=== PATIENT | female | born 1975 | race Caucasian/White ===

== ENCOUNTER 2017-12-04 15:21 | Emergency (ER) | payer MEDICAID, SELFPAY ==
[2017-12-04 15:22] VITALS: BP 98/75; PULSE 137; RESP 18; TEMP 36.6; O2SAT 96; BMI 51.3
--- NOTE | 2017-12-04 15:56 | EKG12_ITS ---
Test Reason : Blood Pressure : / mmHG Vent. Rate : 116 BPM Atrial Rate : 116 BPM P-R Int : 146 ms QRS Dur : 092 ms QT Int : 330 ms P-R-T Axes : 033 015 -04 degrees QTc Int : 458 ms Sinus tachycardia Borderline Low voltage QRS Confirmed by OSITO PRESSLEY, RETA ([id number]), video effects editor DANILO NORMAN ([id number]) on 12/08/2017 3:17:09 PM Referred By: EVGENY Confirmed By:RETA MCNEILL MD
[2017-12-04 15:57] VITALS: BP 100/73; PULSE 129; RESP 17; O2SAT 95
[2017-12-04] MEDS: 0.9% Normal Saline 1,000 ML 1000 ML IV (16:51)
[2017-12-04] MEDS: proMETHazine 25 MG/ML Syringe 12.5 MG IV (16:51)
[2017-12-04] MEDS: Ketorolac 15 MG/ML Vial IV (16:51)
--- NOTE | 2017-12-04 17:12 | ED.RN ---
PT REQUESTING MORE PAIN MEDICATION AND ATIVAN FOR ANXIETY.DR. LE INFORMED OF PT REQUEST. LAB CALLED FOR PT BLOOD DRAW. NO NEW ORDERS AT THIS TIME, WILL CONTINUE TO MONITOR.
--- NOTE | 2017-12-04 17:15 | ED.VISSUMM ---
- ER Visit Summary Date of Service: 12/04/17 Chief Complaint: Pain History of Present Illness: The patient is a 42 F who is postoperative day 3 from dental extraction. She states that despite her morphine Ativan and Percocet 10 mg medications the pain in her mouth is horrible. She states that before her surgery she talked to her pain management doctor who okayed her to come to the emergency room for pain medication if need be. She is in pain management because of fibromyalgia. Also the patient states that last night she laid on her left leg and now she feels tingling from her buttock down to her foot. She states because of this tingling is caused her to swell in various places on her body. The patient states that there is one pain medication that will help her and it begins with D but she cannot quite think of what is called. Physical Examination: 100/73 temperature 97.8 heart rate 129 respirations are 16 pulse ox is 96% on room air Gen: Well-nourished well-developed BMI 51.3 Head: Normocephalic atraumatic Eyes: Perrl EOMI ENT: TMs clear no rhinorrhea moist mucous membranes the recent dental extractions appear to be healing appropriately. There is a bone spur in the lower midline. There is no obvious dry socket. She is swallowing normal. No trismus. Neck: Supple no lymphadenopathy no JVD nontender CVS: Regular rate rhythm no murmurs normal S1-S2 Respiratory: No distress clear to auscultation bilaterally chest nontender Abdomen: Soft nontender nondistended normal bowel sounds no masses Back: Nontender Extremity: Nontender trace edema bilaterally Skin: Normal color no rash Neuro: alert orientated ?3 CN II-XII intact normal strength reflexes reported decreased sensation in the left leg Psych: Anxious Test Results: White count 14.1. BUN 21 creatinine 1.47. This is off her baseline though the last creatinine was over 2 years ago that we have access to. Lactic acid 1.9. Troponin negative. EKG sinus tachycardia at a rate of 160 with no ectopy. Emergency Department Course and Treatment: Patient received IV fluids. Patient became quite anxious because she was a difficult blood draw and required numerous times and she requested Ativan she was given it. Also gave her Toradol. She states that Toradol does not help but now she remembers the name of the pain medication and is requesting Dilaudid. I am very hesitant to give her Dilaudid. When I went back into the room to discuss this I asked her if she had been eating and drinking okay. She states that she had been doing it fine. She states that in fact since being here in the department she has had one and a half bottles of water. When the patient specifically requested me for Dilaudid I informed her I do not feel that Dilaudid is needed in her case. She then states that she has had significant problems eating or drinking because the pain. I point out that this is in direct contrast to what she just stated when I entered the room. She then informs me that she has to let her water warmup before she is able to drink it. I informed her that is pretty common thing after dental extraction. She informs me that she is most likely the sick is patient here in the emergency department. The patient states that the reason her heart rate is fast is because she is in severe pain. As she is telling me this her heart rate is 107. When she becomes upset and starts to whimper her heart rate does not change. The patient requests numerous times for Dilaudid and have explained to her that as she is able to sit in the room with her left leg crossed working on a work book she does not appear to be in significant agony. The fact that prior to her dental extraction she talked with her pain management doctor about if it would be okay to come to the emergency room and get Dilaudid after her extraction tells me that she was already planning on coming here. All these things contribute to my medical opinion that Dilaudid is not in the best interest of the patient and not indicated in this situation. The patient is not pleased with this and is requesting to speak with the charge nurse of the ER. Patient was informed she should follow-up with her doctors. Impression: 1. Dental pain status post extraction 2. Left leg paresthesia This note was generated with [employer] dictation software. It may contain incorrect words, spelling, and punctuation that were not noted in review of the chart prior to signing ED Disposition - Plan for ED Patient: Disposition: Home or Assisted Living Chief Complaint: Dental Instructions: ED Post Op Pain, ED Sciatica Referrals: Devonte Stevenson Jr., MD [Primary Care Provider] - As soon as possible
[2017-12-04] MEDS: LORazepam 1 MG Tablet PO (17:19)
[2017-12-04 17:28] VITALS: PULSE 116; RESP 12; O2SAT 95
[2017-12-04 17:59] LABS: ALB/GLOB Ratio 0.6 RATIO (0.9-2.4); AST(SGOT) 51 U/L (15-37); Absolute Lymphocyte Count 4.31 X10^3/ul (0.83-4.51); Absolute Neutrophil Count 9.1 X10^3/uL (2.0-7.7); Alanine Aminotransfer ALT/SGPT 33 U/L (13-56); Albumin, Serum 2.9 g/dL (3.2-5.0); Alkaline Phosphatase 55 U/L (45-117); Anion Gap 8 (5-15); BUN 21 mg/dL (7-18); BUN/Creat Ratio 14.3 RATIO (10-20); Basophil# 0.03 X10^3/uL; Basophil% 0.2 % (0-1); Calcium,Total 8.8 mg/dL (8.5-10.1); Chloride 103 mmol/L (98-107); Creatinine, Serum 1.47 mg/dL (0.55-1.02); EST Glomerular Filtration Rate 41 mL/min (>60); Eosinophil# 0.13 X10^3/uL; Eosinophils% 0.9 % (0-5); Est Glom Filt Rate - Afr Amer 50 mL/min (>60); Estimated Creatinine Clearance 52.81 ml/min; Globulin 4.8 g/dL (2.2-4.2); Glucose 249 mg/dL (74-106); Hematocrit 42.6 % (37-47); Hemoglobin 14.6 g/dl (12.0-15.0); Lymphocyte # 4.31 X10^3/ul (4.0); Lymphocyte % 30.5 % (19-41); Mean Corp Hgb Conc 34.3 g/gl (32-36); Mean Corpuscular Volume 96.2 fL (81-99); Monocyte# 0.56 X10^3/uL; Neutrophil # 9.08 X10^3/uL (2.7-7.7); Neutrophil % 64.2 % (47-70); Platelet Count 371 K/mm3 (150-450); Potassium 4.9 mmol/L (3.5-5.1); Protein, Total 7.7 g/dL (6.4-8.2); RBC Distribution Width CV 12.2 % (11.6-14.6); RBC Distribution Width SD 41.6 fl (35.1-43.9); Red Blood Count 4.43 M/mm3 (4.2-5.4); Sodium Level 129 mmol/L (136-145); White Blood Count 14.1 K/mm3 (4.4-11.0)
[2017-12-04 18:01] VITALS: BP 105/69; PULSE 117; RESP 17; O2SAT 97
[2017-12-04 18:01] LABS: POSITIVE COUNT NO; POSITIVE DIFFERENTIAL NO; POSITIVE MORPHOLOGY NO
--- NOTE | 2017-12-04 18:01 | ED.RN ---
pt requests more pain and nausea medication. dr. soriano informed. no new medications ordered at this time. will continue to monitor.
[2017-12-04] MEDS: 0.9% Normal Saline 1,000 ML 150 ML IV (18:14)
--- NOTE | 2017-12-04 18:17 | ED.RN ---
PT RELAXING IN ROOM WATCHING TV, NO APPARENT DISTRESS NOTED. PT CONTINUES TO COMPLAIN OF PAIN. DR. LE INFORMED. NO NEW ORDERS WILL CONTINUE TO MONITOR.
[2017-12-04 19:07] VITALS: BP 101/79; PULSE 113; RESP 18; O2SAT 96
[2017-12-04 19:25] LABS: Lactic Acid 1.9 mmol/L (0.4-2.0)
--- NOTE | 2017-12-04 19:42 | ED.RN ---
PT CALLS THIS RN TO ROOM, STATES I NEED AT LEAST 2MG DILAUDID FOR MY BREAKTHROUGH PAIN, PT STATES SHE IS STILL HAVING DISCOMFORT FROM HAVING TEETH REMOVED FRIDAY. PT BARELY ABLE TO KEEP EYES OPEN DURING CONVERSATION, RESTING IN BED, NO SIGNS OF DISTRESS. ATTEMPTED TO REASSURE PT THAT MD AWARE OF REQUEST, PT STATES I JUST HAVE TO HAVE SOME DILAUDID, I AM ONE OF YOUR MOST CRITICAL PATIENTS, HE SHOULD BE BACK HERE TAKING CARE OF ME. APOLOGIZED FOR WAIT, ATTEMPTED TO EXPLAIN MD WAS WITH ANOTHER CRITICAL PT, PT STATES I DON'T CARE WHO ELSE IS IN HERE, I'M THE MOST CRITICAL ONE. PT DENIES ANY OTHER NEEDS, WILL CONTINUE TO MONITOR.
[2017-12-04 20:20] VITALS: BP 101/79; PULSE 103; RESP 17; O2SAT 97
== END 2017-12-04 20:21 | disposition home or self-care (01) ==
PROVIDERS: Emergency Provider Emergency Medicine; Family Provider Internal Medicine; PCP Internal Medicine
DX: K08.89 Other specified disorders of teeth and supporting structures (principal); Z98.818 Other dental procedure status; R20.2 Paresthesia of skin; R11.0 Nausea; M79.7 Fibromyalgia; E11.9 Type 2 diabetes mellitus without complications; I10 Essential (primary) hypertension; F32.9 Major depressive disorder, single episode, unspecified; Z90.89 Acquired absence of other organs; Z90.49 Acquired absence of other specified parts of digestive tract; Z90.710 Acquired absence of both cervix and uterus; Z87.891 Personal history of nicotine dependence; Z79.84 Long term (current) use of oral hypoglycemic drugs; Z79.899 Other long term (current) drug therapy
CPT/HCPCS: 36415; 80053; 83605; 84484; 85025; 93005; 96361; 96374; 96375; 99285; J7030

== ENCOUNTER 2018-01-16 20:54 | Inpatient (IN) | payer MEDICAID, SELFPAY ==
[2018-01-16] VITALS (11 sets, daily range): BP systolic 99–132; BP diastolic 64–104; PULSE 100–108; RESP 16–19; TEMP 36.6–37.7; O2SAT 78–100; BMI 56.0; BMI 56.1
--- NOTE | 2018-01-16 20:54 | DT_ITS ---
This patient was seen during an EMR downtime January 19, 2018 - January 26, 2018. This patient may have a combination of paper and electronic documentation or all paper documentation. All documentation is viewable within the e-chart portion of [facility] for each patient visit.
[2018-01-16] MEDS: Propofol 10MG/Ml 1,000 MG/100 ML Bottle 5.019 MG CONT INF (21:20)
--- NOTE | 2018-01-16 22:06 | PCM.HP.STD ---
Problem List (1) Acute respiratory failure Status: Acute (2) ARF (acute renal failure) Status: Acute (3) Hyperosmolarity due to secondary diabetes Status: Acute (4) Depression Status: Acute Comment: Reports she does not like medications for depression. Reports it has been prescribed at various times by her care providers. No interest in counseling. No suicide thoughts or thoughts of hurting others. (5) Diabetes mellitus Status: Acute Qualifiers: Comment: Discussed with patient need to check BG consistently and routinely. Showed her how to check correctly along side of finger and how to improve chances of getting blood sample on low dial. She may be a candidate for leslie system,depending on insurance. We discussed importance of routine care and following medication plan. Her level of anxiety significantly reduce by end of appointment. Instructed to check BG in pairs over the next several days . Will obtain medical records History of Present Illness Date of Admission: 01/16/18 Chief Complaint: Acute respiratory failure The patient is a 42 year old female w/ h/o chronic pain syndrome, HTN and DMII transferred from [facility] for acute respiratory failure. She was sedated and intubated. History is taken from staff and family members. Pt has been noncompliant w/ her insulin and when daughter found her, she was lying on the ground. She was mumbling. Family left her on the floor night and decided to call paramedics on Friday morning. She was brought to the ED for further workup. At [facility] ED, she was intubated and hydrated. She was also started on antibiotics. Past Medical History Medical History: Medical History (Last Updated 10/15/17 @ 13:10 by Michelle Flores) Anxiety and depression F41.8 Back problem M53.9 Carpal tunnel syndrome G56.00 Diabetes type 2, uncontrolled E11.65 Dx : 1995 Last exacerbation : DKA : never Hypoglycemic episode : never ER visit : never Fatty liver K76.0 Fibromyalgia M79.7 Frequent headaches R51 GERD (gastroesophageal reflux disease) K21.9 Seasonal allergies J30.2 Thyroid disease E07.9 HTN (hypertension) I10 Allergies hydroxyzine [From Atarax] Allergy (Verified 12/04/17 15:22) Hives Sulfa (Sulfonamide Antibiotics) Allergy (Verified 12/04/17 15:22) Hives Home Medications: Ambulatory Orders Medication Instructions Recorded Levothyroxine Sodium [Synthroid] 300 mcg PO DAILY 10/16/15 Omeprazole [Prilosec] 20 mg PO DAILY 10/16/15 Topiramate [Topamax] 100 mg PO BID 10/16/15 Venlafaxine XR [Effexor Xr] 150 mg PO BID 10/16/15 Zolpidem Tartrate [Ambien] 10 mg PO QHS 10/16/15 Morphine Sulfate [Morphine Sulfate 30 mg PO TID 11/07/15 ER] Oxycodone HCl/Acetaminophen 2 tab PO Q6H PRN PRN 11/07/15 [Percocet 10-325 mg Tablet] amitriptyline 100 mg tablet 100 mg PO QHS 10/15/17 blood sugar diagnostic strips See Dose Instructions .ROUTE 10/15/17 .MEDSUPPLY #100 ea blood-glucose meter kit See Dose Instructions .ROUTE 10/15/17 .MEDSUPPLY #1 ea lancets 28 gauge See Dose Instructions .ROUTE 10/15/17 .MEDSUPPLY #100 ea lidocaine 5 % topical ointment 1 applic TOPICAL BID-QID PRN 10/15/17 lisinopril 10 mg tablet 10 mg PO QDAY 10/15/17 metformin ER 1,000 mg 24 hr 1,000 mg PO BID tab 10/15/17 tablet,extended release oxybutynin chloride 5 mg tablet 5 mg PO TID 10/15/17 Surgical History: Surgical History (Last Updated 10/15/17 @ 12:54 by Michelle Flores) H/O hernia repair Z98.890, Z87.19 H/O sinus surgery Z98.890 H/O thyroidectomy Z98.890, E89.0 H/O: Z98.891 History of incision and drainage Z98.890 Hx of appendectomy Z98.890, Z90.49 Hx of cholecystectomy Z98.890, Z90.49 S/P RUTH (total abdominal hysterectomy) Z90.710 S/P bronchoscopy Z98.890 cervical lymph node excision l toe surgery Surgical History: no surgical history Psychiatric History: No pertinent psych hx FREELANCE DATA ENTRY History: No pertinent FREELANCE DATA ENTRY history Lives: With Family Smoking Status: Former smoker Alcohol: None Drugs: None - *Family History Maternal Family History: Family History (Last Updated 02/28/18 @ 12:55 by Michelle Flores) Mother Arthritis Breast cancer Heart disease Father Heart disease History Items: No pertinent history Review of Systems Unable to obtain accurate/complete ROS d/t: Unable to obtain secondary to sedation and intubation. VTE Information - Inpt Only VTE Present on Admission: No VTE Mechan Device Prophylaxis: SCD's VTE Pharm Prophylaxis ordered?: Yes Patient Problems: Active and Suspected Problems (Last Updated 10/15/17 @ 13:10 by Michelle Flores) Acute respiratory failure (Acute) ARF (acute renal failure) (Acute) Hyperosmolarity due to secondary diabetes (Acute) - Physical Exam General: No apparent distress HEENT: Atraumatic, PERRLA, EOMI, Normocephalic Neck: Supple, No JVD, Negative Carotid Bruits Lungs: Clear to auscultation, Normal air movement Cardiovascular: Regular rate, No murmurs Abdomen: Bowel Sounds Present, Soft, Non Tender Extremities: No edema, Capillary Refill Less than 3 Seconds Skin: No rashes, No breakdown Musculoskeletal: No Tenderness to Palpation of Joints or Extremities Lymphatic: No Cervical, Supraclavicular, or Inguinal Adenopathy Neurological: Muscle tone normal Vital Signs Pulse Resp Pulse Ox 104 H 16 99 01/16/18 21:29 01/16/18 21:29 01/16/18 21:29 Weight: 167.3 kg Body Mass Index (BMI) 56.0 Finger Stick Blood Glucose 195 Laboratory Tests Past 24 Hrs 01/16/18 20:00 MRSA (PCR) Pending Assessment/Plan All Active Problems (Last Updated 10/15/17 @ 13:10 by Michelle Flores) Acute respiratory failure (Acute) ARF (acute renal failure) (Acute) Hyperosmolarity due to secondary diabetes (Acute) Depression (Acute) Diabetes mellitus (Acute) 42 year old female w/ h/o chronic pain syndrome, HTN and DMII transferred from [facility] for acute respiratory failure. 1) Acute respiratory failure: Probably secondary to unintentional drug overdose secondary to ARF secondary to ATN secondary to prolong azotemia secondary to osmotic diuresis. C/w vent support. Consulted pulmonary for management. 2) Hyperosmolar hyperglycemic state: Will start insulin gtt. Will hydrate. Will follow labs. 3) ARF: Most likely ATN from prolong azotemia secondary to osmotic diuresis. Given pt was lying on the floors for hours, there is concern for rhabdomyolysis. Will get CPK. Will also get UA. Hydration. Monitor. 4) Hypotension: Probably hypovolemia. Hydration. However will start zosyn and vanco until cultures are back. Cultures pending. Xray unremarkable. 5) Fall: Most likely from hypotension. Xray of pelvis negative. CT cervical spine and head negative. Supportive care. 6) Prophylaxis: Heparin / protonix.
--- NOTE | 2018-01-16 22:20 | RAD_ITS ---
STUDY: X-RAY CHEST REASON FOR EXAM: Female, 42 years old. Shortness of breath. Line placement. TECHNIQUE: Frontal view of the chest COMPARISON: 10/11/2016 FINDINGS: There is an endotracheal tube with its tip approximately 2 cm above the melissa. There is a right-sided central line with its tip in the superior vena cava. There is atelectasis at the lung bases. The lungs are otherwise clear. There are no pleural effusions. There is no pneumothorax. The heart is normal in size. The visualized osseous structures are within normal limits. RAD/Chest 1 View (Portable) IMPRESSION: Satisfactory position of the support lines and tubes. Bibasilar atelectasis. Otherwise, clear lungs. Electronically Signed: Kwan Westbrook, at 22:50 EDT Tel , Service support ,
[2018-01-16 22:51] LABS: Bedside Glucose 283 mg/dL (70-110)
[2018-01-16] MEDS: 0.9% Normal Saline 1,000 ML 999 ML IV (23:14)
[2018-01-16] MEDS: Chlorhexidine 15 ML PO (23:19)
[2018-01-16] MEDS: Piperacil/Tazobactam 3.375 GM/50 ML ML IV (23:19)
[2018-01-16 23:22] LABS: M R Staph aureus DNA By PCR POSITIVE (Negative); Probe Check PASS
[2018-01-16 23:40] LABS: Anion Gap 12 (5-15); BUN 47 mg/dL (7-18); BUN/Creat Ratio 9.5 RATIO (10-20); Chloride 103 mmol/L (98-107); Creatinine, Serum 4.94 mg/dL (0.55-1.02); EST Glomerular Filtration Rate 10 mL/min (>60); Est Glom Filt Rate - Afr Amer 12 mL/min (>60); Estimated Creatinine Clearance 14.66 ml/min; Glucose 272 mg/dL (74-106); Potassium 5.1 mmol/L (3.5-5.1); Sodium Level 133 mmol/L (136-145)
[2018-01-16 23:41] LABS: Color, Urine Yellow (Yellow); Glucose, Dipstick 100 mg/dl (Normal); Ketone-Dipstick Negative (Negative); Leukocyte Esterase-Dipstick 100 /ul (Negative); Nitrite-Dipstick Negative (Negative); Occult Blood-Urine 250 /ul (Negative); Protein-Dipstick 100 mg/dl (Negative); Urine Bilirubin Dipstick Negative (Negative); Urine Clarity Sl. Cloudy (Clear); Urine Urobilinogen Normal (Normal)
[2018-01-16 23:44] LABS: Lactic Acid 1.4 mmol/L (0.4-2.0)
[2018-01-16 23:50] LABS: Allen Test POS; Base Excess -10 mmol/L (-2 to +2); Bicarbonate 16.6 mmol/L (22-26); Blood Gas Specimen Type ART; FI02 40; Mode A-C; O2 Delivery Device Vent; PEEP 5; PO2 134 mmHG (75-100); RR 16; SITE L Radial; SO2 99 % (95-99); Total Carbon Dioxide 18 mmol/L; Vt 550; pCO2 35.6 mmHg (35-45); pH 7.28 (7.35-7.45)
[2018-01-17] VITALS (41 sets, daily range): BP systolic 92–133; BP diastolic 42–110; PULSE 76–118; RESP 14–22; TEMP 36.1–37.7; O2SAT 91–100
[2018-01-17 00:01] LABS: Amorphous Sediment 1+; Bacteria RARE /hpf (None Seen); Mucous, Urine 1+ /hpf (<or=2+); Squamous Epithelial Cells - UA 0-5 SEEN /hpf (5-10)
[2018-01-17 00:02] LABS: Hemoglobin A1c 9.1 % (4.2-6.3)
[2018-01-17 00:02] LABS: Red Blood Cells-Urine 0-5 SEEN /hpf (0-5); White Blood Cells 5-10 SEEN /hpf (0-5)
[2018-01-17 00:15] LABS: AST(SGOT) 130 U/L (15-37); Alanine Aminotransfer ALT/SGPT 59 U/L (13-56); Albumin, Serum 2.6 g/dL (3.2-5.0); Alkaline Phosphatase 63 U/L (45-117); Bilirubin, Direct 0.18 mg/dL (0.00-0.30); Globulin 3.9 g/dL (2.2-4.2); Magnesium 1.6 mg/dL (1.6-2.6); Protein, Total 6.5 g/dL (6.4-8.2)
--- NOTE | 2018-01-17 00:15 | PHA.PHARE_ITS ---
Consult Pharmacy has been consulted to manage selected antiobiotic: Vancomycin Type of Consult: New start Suspected Infection: Pneumonia Prior Doses of Antibiotics Received/Current Regimen: Patient arrived on transfer from [facility] with Vancomycin 2000mg currently infusing (around 2300 01/16/18). Labs: Sodium 133 mmol/L (136-145) L 01/16/18 22:40 Potassium 5.1 mmol/L (3.5-5.1) 01/16/18 22:40 Chloride 103 mmol/L (98-107) 01/16/18 22:40 Carbon Dioxide 18.0 mmol/L (21.0-32.0) L 01/16/18 22:40 Anion Gap 12 (5-15) 01/16/18 22:40 BUN 47 mg/dL (7-18) H 01/16/18 22:40 Creatinine 4.94 mg/dL (0.55-1.02) H 01/16/18 22:40 Est GFR (MDRD) Af Amer 12 mL/min (>60) L 01/16/18 22:40 Est GFR (MDRD) Non-Af 10 mL/min (>60) L 01/16/18 22:40 BUN/Creatinine Ratio 9.5 RATIO (10-20) L 01/16/18 22:40 Glucose 272 mg/dL (74-106) H 01/16/18 22:40 Weight used for dosin.3 kg Estimated Creatinine Clearance: 14.7 Goal Trough: 15-20 mcg/mL Pharmacy Plan for Drug Dosing: Initial dose of vancomycin 2000mg from [facility]. Pharmacy Service will continue to monitor and adjust dosing as required. Follow-Up Labs: Trough Vancomycin - random Labs to be done on [date and time ordered]: 01/18/18 @0600 random vancomycin level
[2018-01-17] MEDS: 0.9% Normal Saline 1,000 ML 500 ML IV (01:03)
[2018-01-17] MEDS: Insulin Lispro 100 UNIT/ML INSULN.PEN SC ×5 (01:23→23:51)
[2018-01-17] MEDS: Propofol 10MG/Ml 1,000 MG/100 ML Bottle 5.019 MG CONT INF ×6 (01:35→21:28)
[2018-01-17] MEDS: Albuterol 2.5 MG/3 ML VIAL.NEB. INHALATION ×5 (01:52→23:02)
[2018-01-17] MEDS: 0.9% Normal Saline 1,000 ML 325 ML IV (02:13)
[2018-01-17 02:16] LABS: Bedside Glucose 257 mg/dL (70-110)
[2018-01-17 02:28] LABS: Triglycerides 180 mg/dL
[2018-01-17 02:34] LABS: Anion Gap 10 (5-15); BUN 48 mg/dL (7-18); Calcium,Total 7.7 mg/dL (8.5-10.1); Chloride 106 mmol/L (98-107); Creatinine, Serum 4.81 mg/dL (0.55-1.02); EST Glomerular Filtration Rate 10 mL/min (>60); Est Glom Filt Rate - Afr Amer 13 mL/min (>60); Estimated Creatinine Clearance 15.06 ml/min; Glucose 236 mg/dL (74-106); Potassium 4.5 mmol/L (3.5-5.1); Sodium Level 135 mmol/L (136-145)
--- NOTE | 2018-01-17 02:35 | RAD_ITS ---
STUDY: X-RAY - ABDOMEN/PELVIS REASON FOR EXAM: Female, 42 years old. Status post orogastric tube placement TECHNIQUE: Single AP view of the abdomen / pelvis. COMPARISON: None. FINDINGS: Orogastric tube tip projects over the gastric fundus. Proximal sidehole overlies the gastroesophageal junction. Normal small bowel gas pattern. Moderate gas and stool seen throughout the colon. No mucosal thickening. No free intraperitoneal air. No intra-abdominal calcification. The visualized liver, spleen and kidneys are grossly normal in size and morphology. Normal soft tissue structures. Normal visualized osseous structures. RAD/Abdomen Single View IMPRESSION: Appropriate positioning of orogastric tube. Electronically Signed: Brian Marvin MD at 3:19 EDT Tel , Service support ,
[2018-01-17 03:47] LABS: CPK Total, Creatine Kinase 4924 U/L (26-192)
[2018-01-17 04:50] LABS: Anion Gap 13 (5-15); BUN 47 mg/dL (7-18); BUN/Creat Ratio 9.9 RATIO (10-20); Calcium,Total 7.6 mg/dL (8.5-10.1); Chloride 106 mmol/L (98-107); Creatinine, Serum 4.74 mg/dL (0.55-1.02); EST Glomerular Filtration Rate 11 mL/min (>60); Est Glom Filt Rate - Afr Amer 13 mL/min (>60); Estimated Creatinine Clearance 15.28 ml/min; Glucose 234 mg/dL (74-106); Potassium 4.6 mmol/L (3.5-5.1); Sodium Level 137 mmol/L (136-145)
[2018-01-17] MEDS: 0.9% NaCl Peripheral Flush Adult/Peds IV (04:58)
[2018-01-17 05:08] LABS: Absolute Lymphocyte Count 2.25 X10^3/ul (0.83-4.51); Absolute Neutrophil Count 9.9 X10^3/uL (2.0-7.7); Basophil# 0.01 X10^3/uL; Basophil% 0.1 % (0-1); Eosinophils% 0.7 % (0-5); Hematocrit 33.8 % (37-47); Hemoglobin 11.6 g/dl (12.0-15.0); Lymphocyte # 2.25 X10^3/ul (4.0); Lymphocyte % 16.7 % (19-41); Mean Corp Hgb Conc 34.3 g/gl (32-36); Mean Platelet Vol. 9.6 fl (6.2-12.0); Monocyte# 1.16 X10^3/uL; Monocyte% 8.6 % (0-10); Neutrophil # 9.91 X10^3/uL (2.7-7.7); Neutrophil % 73.7 % (47-70); POSITIVE COUNT NO; POSITIVE DIFFERENTIAL NO; POSITIVE MORPHOLOGY NO; Platelet Count 245 K/mm3 (150-450); RBC Distribution Width CV 12.4 % (11.6-14.6); RBC Distribution Width SD 43.1 fl (35.1-43.9); Red Blood Count 3.52 M/mm3 (4.2-5.4); White Blood Count 13.5 K/mm3 (4.4-11.0)
[2018-01-17] MEDS: Heparin Injection (Vial) 5,000 UNIT/ML VIAL 5000 UNIT SC ×3 (05:36→21:48)
[2018-01-17] MEDS: CHLORHEXIDINE GLUC 2% CLOTH 1 EACH TOWELETTE TOPICAL ×2 (05:36→21:28)
--- NOTE | 2018-01-17 07:06 | CON.PCM_ITS ---
Reason for Consult Date of Consultation: 01/17/18 Reason for Consultation: Acute respiratory failure History of Present Illness: The patient is a 42-year-old female, with a history as outlined below, who is a direct admit from [facility] on January 16 with acute respiratory failure. History pertinent to her hospitalization was obtained primarily via chart review , as the patient remains intubated and sedated. Per documentation, EMS was dispatched to the patient's home on the afternoon of January 16. The patient was reportedly found down in an altered state by family members the day previous. However, they waited to contact EMS until January 16. The patient reportedly has a history of drug overdose, sleep apnea/depression and fibromyalgia. The patient was intubated in the pulmonary emergency department due to altered mental state. CT head was largely unremarkable. Upon presentation to [facility], the patient was noted to have an elevated white blood cell count 14,000. Chemistry profile was notable for a serum bicarbonate of 18 with an elevated creatinine of 4.94. Glucose was elevated to 272 with a corresponding hemoglobin A1c of 9.1. Serum lactate was within normal limits. AST was elevated to 130 with a corresponding ALT elevation to 59. Total CK was elevated to 4924. Troponin was negative. Urinalysis was positive for leukocyte esterase with rare urine bacteria noted. Serum acetone level was negative. MRSA screen was positive. Plain film chest x -ray revealed no acute cardiopulmonary process with life support devices in appropriate position. Past Medical History Medical History: Medical History (Last Updated 10/15/17 @ 13:10 by Michelle Flores) Anxiety and depression F41.8 Back problem M53.9 Carpal tunnel syndrome G56.00 Diabetes type 2, uncontrolled E11.65 Dx : 1995 Last exacerbation : DKA : never Hypoglycemic episode : never ER visit : never Fatty liver K76.0 Fibromyalgia M79.7 Frequent headaches R51 GERD (gastroesophageal reflux disease) K21.9 Seasonal allergies J30.2 Thyroid disease E07.9 HTN (hypertension) I10 Allergies hydroxyzine [From Atarax] Allergy (Verified 12/04/17 15:22) Hives Sulfa (Sulfonamide Antibiotics) Allergy (Verified 12/04/17 15:22) Hives Home Medications: Ambulatory Orders Medication Instructions Recorded Levothyroxine Sodium [Synthroid] 300 mcg PO DAILY 10/16/15 Omeprazole [Prilosec] 40 mg PO DAILY 10/16/15 Topiramate [Topamax] 100 mg PO BID 10/16/15 Venlafaxine XR [Effexor Xr] 150 mg PO BID 10/16/15 Zolpidem Tartrate [Ambien] 10 mg PO QHS 10/16/15 Morphine Sulfate [Morphine Sulfate 30 mg PO TID 11/07/15 ER] Oxycodone HCl/Acetaminophen 1 tab PO Q6H PRN PRN 11/07/15 [Percocet 10-325 mg Tablet] amitriptyline 100 mg tablet 100 mg PO QHS 10/15/17 blood sugar diagnostic strips See Dose Instructions .ROUTE 10/15/17 .MEDSUPPLY #100 ea blood-glucose meter kit See Dose Instructions .ROUTE 10/15/17 .MEDSUPPLY #1 ea lancets 28 gauge See Dose Instructions .ROUTE 10/15/17 .MEDSUPPLY #100 ea lidocaine 5 % topical ointment 1 applic TOPICAL BID-QID PRN 10/15/17 lisinopril 10 mg tablet 10 mg PO QDAY 10/15/17 metformin ER 1,000 mg 24 hr 1,000 mg PO BID tab 10/15/17 tablet,extended release oxybutynin chloride 5 mg tablet 5 mg PO TID 10/15/17 Surgical History: Surgical History (Last Updated 10/15/17 @ 12:54 by Michelle Flroes) H/O hernia repair Z98.890, Z87.19 H/O sinus surgery Z98.890 H/O thyroidectomy Z98.890, E89.0 H/O: Z98.891 History of incision and drainage Z98.890 Hx of appendectomy Z98.890, Z90.49 Hx of cholecystectomy Z98.890, Z90.49 S/P RUTH (total abdominal hysterectomy) Z90.710 S/P bronchoscopy Z98.890 cervical lymph node excision l toe surgery Surgical History: no surgical history Psychiatric History: 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 Lives: With Family Smoking Status: Former smoker Alcohol: None Drugs: None - *Family History Maternal Family History: Family History (Last Updated 10/15/17 @ 12:55 by Michelle Flores) Mother Arthritis Breast cancer Heart disease Father Heart disease History Items: No pertinent history Review of Systems Unable to obtain accurate/complete ROS d/t: Due to current intubation and mechanical ventilation status Patient Problems: Active and Suspected Problems (Last Updated 10/15/17 @ 13:10 by Michelle Flores) Acute respiratory failure (Acute) ARF (acute renal failure) (Acute) Hyperosmolarity due to secondary diabetes (Acute) Objective: The patient's most recent lab work, culture data and imaging studies have all been personally reviewed. Blood cultures are currently pending. - Physical Exam General: - - Intubated, sedated and mechanically ventilated. Morbidly obese HEENT: Atraumatic, PERRLA, Normocephalic Oral: No Gingival or Mucosal Lesions/ Ulcerations, - - Endotracheal and OG tubes in place Neck: Supple, No Nodes, Trachea Midline, - - Right IJ central venous catheter in place Lungs: No rhonchi, No wheeze, No rales, Diminished Cardiovascular: Regular Rhythm, Normal S1, Normal S2, No murmurs, No rub noted, No Gallop, Tachycardic Abdomen: Bowel Sounds Present, Soft, Non Tender, Obese Extremities: No clubbing, No cyanosis, No edema Skin: - - Erythema noted over extensor surface of upper extremities Musculoskeletal: No Muscle Wasting Lymphatic: No Cervical, Supraclavicular, or Inguinal Adenopathy Neurological: - - No focal deficits. Moves all extremities spontaneously. Opens eyes to verbal cues. Vital Signs Temp Pulse Resp BP Pulse Ox 97.0 F L 109 H 14 103/52 L 100 01/17/18 03:00 01/17/18 06:00 01/17/18 06:00 01/17/18 06:00 01/17/18 06:00 Oxygen Delivery Method Mechanical Ventilator Weight: 368 lb 13.334 oz Body Mass Index (BMI) 56.0 Finger Stick Blood Glucose 195 Intake and Output for Last 24 Hours 01/15/18 01/16/18 01/17/18 23:59 23:59 23:59 Intake Total 3644.9 / 3644.9 Output Total 1475 / 1475 Balance 2169.9 / 2169.9 Laboratory Tests Past 24 Hrs 01/16/18 01/16/18 01/16/18 20:00 22:40 22:40 WBC Corrected WBC RBC Hgb Hct MCV MCH MCHC RDW RDW Differential Plt Count MPV Immature Gran % (Auto) Neut % (Auto) Lymph % (Auto) [place] % (Auto) Eos % (Auto) Baso % (Auto) Absolute Neuts (auto) Absolute Lymphs (auto) Total Counted Neutrophils % (Manual) Band Neutrophils % Lymphocytes % (Manual) Monocytes % (Manual) Eosinophils % (Manual) Basophils % (Manual) Metamyelocytes % Myelocytes % Promyelocytes % Blast Cells % Plasma Cell % (Manual) Other Cells % Nucleated RBCs/100 WBC Differential Comment Diff Path Review Hypersegmented Neuts Atypical Lymphocytes Reactive Lymphocytes Smudge Cells Toxic Granulation Dohle Bodies Ariela Rods Platelet Estimate Plt Morphology Comment RBC Morphology Polychromasia Hypochromasia Poikilocytosis Basophilic Stippling Anisocytosis Microcytosis Macrocytosis Spherocytes Sickle Cells Target Cells Tear Drop Cells Ovalocytes Stomatocytes Joseph-Wolsey Bodies [place] Cells Bite Cells Acanthocytes (Spur) Rouleaux Schistocytes Specimen Type Sample Site pH Bicarbonate Actual POC Total CO2 Base Excess O2 Saturation O2 % ABG pCO2 ABG pO2 Aroldo Test Respiration Rate O2 Delivery Device Vent Mode Tidal Volume POC PEEP Blood Gas Notified Whom Sodium Potassium Chloride Carbon Dioxide Anion Gap BUN Creatinine Estim Creat Clear Calc Est GFR (MDRD) Af Amer Est GFR (MDRD) Non-Af BUN/Creatinine Ratio Glucose Hemoglobin A1c Lactic Acid Calcium Magnesium Total Bilirubin Direct Bilirubin AST ALT Alkaline Phosphatase Total Creatine Kinase CK Isoenzymes Pending CK-MM (CK-3) Pending CK-MB (CK-2) Pending CK-BB (CK-1) Pending Troponin I Total Protein Albumin Globulin Triglycerides Urine Color Urine Clarity Urine pH Ur Specific [place] Urine Protein Urine Glucose (UA) Urine Ketones Urine Occult Blood Urine Nitrite Urine Bilirubin Urine Urobilinogen Ur Leukocyte Esterase Urine RBC Urine WBC Ur Squamous Epith Cells Amorphous Sediment Urine Bacteria Urine Mucus Acetone Level NEGATIVE MRSA (PCR) POSITIVE H 01/16/18 01/16/18 01/16/18 22:40 22:40 22:40 WBC Corrected WBC RBC Hgb Hct MCV MCH MCHC RDW RDW Differential Plt Count MPV Immature Gran % (Auto) Neut % (Auto) Lymph % (Auto) [place] % (Auto) Eos % (Auto) Baso % (Auto) Absolute Neuts (auto) Absolute Lymphs (auto) Total Counted Neutrophils % (Manual) Band Neutrophils % Lymphocytes % (Manual) Monocytes % (Manual) Eosinophils % (Manual) Basophils % (Manual) Metamyelocytes % Myelocytes % Promyelocytes % Blast Cells % Plasma Cell % (Manual) Other Cells % Nucleated RBCs/100 WBC Differential Comment Diff Path Review Hypersegmented Neuts Atypical Lymphocytes Reactive Lymphocytes Smudge Cells Toxic Granulation Dohle Bodies Ariela Rods Platelet Estimate Plt Morphology Comment RBC Morphology Polychromasia Hypochromasia Poikilocytosis Basophilic Stippling Anisocytosis Microcytosis Macrocytosis Spherocytes Sickle Cells Target Cells Tear Drop Cells Ovalocytes Stomatocytes Joseph-Wolsey Bodies [place] Cells Bite Cells Acanthocytes (Spur) Rouleaux Schistocytes Specimen Type Sample Site pH Bicarbonate Actual POC Total CO2 Base Excess O2 Saturation O2 % ABG pCO2 ABG pO2 Aroldo Test Respiration Rate O2 Delivery Device Vent Mode Tidal Volume POC PEEP Blood Gas Notified Whom Sodium Potassium Chloride Carbon Dioxide Anion Gap BUN Creatinine Estim Creat Clear Calc Est GFR (MDRD) Af Amer Est GFR (MDRD) Non-Af BUN/Creatinine Ratio Glucose Hemoglobin A1c 9.1 H Lactic Acid 1.4 Calcium Magnesium 1.6 Total Bilirubin 0.50 Direct Bilirubin 0.18 AST 130 H ALT 59 H Alkaline Phosphatase 63 Total Creatine Kinase CK Isoenzymes CK-MM (CK-3) CK-MB (CK-2) CK-BB (CK-1) Troponin I < 0.015 Total Protein 6.5 Albumin 2.6 L Globulin 3.9 Triglycerides Urine Color Urine Clarity Urine pH Ur Specific [place] Urine Protein Urine Glucose (UA) Urine Ketones Urine Occult Blood Urine Nitrite Urine Bilirubin Urine Urobilinogen Ur Leukocyte Esterase Urine RBC Urine WBC Ur Squamous Epith Cells Amorphous Sediment Urine Bacteria Urine Mucus Acetone Level MRSA (PCR) 01/16/18 01/16/18 01/16/18 22:40 22:40 23:20 WBC Corrected WBC RBC Hgb Hct MCV MCH MCHC RDW RDW Differential Plt Count MPV Immature Gran % (Auto) Neut % (Auto) Lymph % (Auto) [place] % (Auto) Eos % (Auto) Baso % (Auto) Absolute Neuts (auto) Absolute Lymphs (auto) Total Counted Neutrophils % (Manual) Band Neutrophils % Lymphocytes % (Manual) Monocytes % (Manual) Eosinophils % (Manual) Basophils % (Manual) Metamyelocytes % Myelocytes % Promyelocytes % Blast Cells % Plasma Cell % (Manual) Other Cells % Nucleated RBCs/100 WBC Differential Comment Diff Path Review Hypersegmented Neuts Atypical Lymphocytes Reactive Lymphocytes Smudge Cells Toxic Granulation Dohle Bodies Ariela Rods Platelet Estimate Plt Morphology Comment RBC Morphology Polychromasia Hypochromasia Poikilocytosis Basophilic Stippling Anisocytosis Microcytosis Macrocytosis Spherocytes Sickle Cells Target Cells Tear Drop Cells Ovalocytes Stomatocytes Joseph-Wolsey Bodies [place] Cells Bite Cells Acanthocytes (Spur) Rouleaux Schistocytes Specimen Type Sample Site pH Bicarbonate Actual POC Total CO2 Base Excess O2 Saturation O2 % ABG pCO2 ABG pO2 Aroldo Test Respiration Rate O2 Delivery Device Vent Mode Tidal Volume POC PEEP Blood Gas Notified Whom Sodium 133 L Potassium 5.1 Chloride 103 Carbon Dioxide 18.0 L Anion Gap 12 BUN 47 H Creatinine 4.94 H Estim Creat Clear Calc 14.66 Est GFR (MDRD) Af Amer 12 L Est GFR (MDRD) Non-Af 10 L BUN/Creatinine Ratio 9.5 L Glucose 272 H Hemoglobin A1c Lactic Acid Calcium 8.0 L Magnesium Total Bilirubin Direct Bilirubin AST ALT Alkaline Phosphatase Total Creatine Kinase 4924 H CK Isoenzymes CK-MM (CK-3) CK-MB (CK-2) CK-BB (CK-1) Troponin I Total Protein Albumin Globulin Triglycerides Urine Color Yellow Urine Clarity Sl. Cloudy Urine pH 5.0 Ur Specific [place] 1.020 Urine Protein 100 H Urine Glucose (UA) 100 H Urine Ketones Negative Urine Occult Blood 250 H Urine Nitrite Negative Urine Bilirubin Negative Urine Urobilinogen Normal Ur Leukocyte Esterase 100 H Urine RBC 0-5 SEEN Urine WBC 5-10 SEEN Ur Squamous Epith Cells 0-5 SEEN Amorphous Sediment 1+ Urine Bacteria RARE Urine Mucus 1+ Acetone Level MRSA (PCR) 01/16/18 01/17/18 01/17/18 23:47 02:00 02:00 WBC Corrected WBC RBC Hgb Hct MCV MCH MCHC RDW RDW Differential Plt Count MPV Immature Gran % (Auto) Neut % (Auto) Lymph % (Auto) [place] % (Auto) Eos % (Auto) Baso % (Auto) Absolute Neuts (auto) Absolute Lymphs (auto) Total Counted Neutrophils % (Manual) Band Neutrophils % Lymphocytes % (Manual) Monocytes % (Manual) Eosinophils % (Manual) Basophils % (Manual) Metamyelocytes % Myelocytes % Promyelocytes % Blast Cells % Plasma Cell % (Manual) Other Cells % Nucleated RBCs/100 WBC Differential Comment Diff Path Review Hypersegmented Neuts Atypical Lymphocytes Reactive Lymphocytes Smudge Cells Toxic Granulation Dohle Bodies Ariela Rods Platelet Estimate Plt Morphology Comment RBC Morphology Polychromasia Hypochromasia Poikilocytosis Basophilic Stippling Anisocytosis Microcytosis Macrocytosis Spherocytes Sickle Cells Target Cells Tear Drop Cells Ovalocytes Stomatocytes Joseph-Wolsey Bodies [place] Cells Bite Cells Acanthocytes (Spur) Rouleaux Schistocytes Specimen Type ART Sample Site L Radial pH 7.28 L Bicarbonate Actual 16.6 L POC Total CO2 18 Base Excess -10 L O2 Saturation 99 O2 % 40 ABG pCO2 35.6 ABG pO2 134 H Aroldo Test POS Respiration Rate 16 O2 Delivery Device Vent Vent Mode A-C Tidal Volume 550 POC PEEP 5 Blood Gas Notified Whom HOSP MD Sodium 135 L Potassium 4.5 Chloride 106 Carbon Dioxide 19.0 L Anion Gap 10 BUN 48 H Creatinine 4.81 H Estim Creat Clear Calc 15.06 Est GFR (MDRD) Af Amer 13 L Est GFR (MDRD) Non-Af 10 L BUN/Creatinine Ratio 10.0 Glucose 236 H Hemoglobin A1c Lactic Acid Calcium 7.7 L Magnesium Total Bilirubin Direct Bilirubin AST ALT Alkaline Phosphatase Total Creatine Kinase CK Isoenzymes CK-MM (CK-3) CK-MB (CK-2) CK-BB (CK-1) Troponin I < 0.015 Total Protein Albumin Globulin Triglycerides 180 Urine Color Urine Clarity Urine pH Ur Specific [place] Urine Protein Urine Glucose (UA) Urine Ketones Urine Occult Blood Urine Nitrite Urine Bilirubin Urine Urobilinogen Ur Leukocyte Esterase Urine RBC Urine WBC Ur Squamous Epith Cells Amorphous Sediment Urine Bacteria Urine Mucus Acetone Level MRSA (PCR) 01/17/18 01/17/18 01/17/18 04:25 04:25 04:25 WBC Cancelled Corrected WBC Cancelled RBC Cancelled Hgb Cancelled Hct Cancelled MCV Cancelled MCH Cancelled MCHC Cancelled RDW Cancelled RDW Differential Cancelled Plt Count Cancelled MPV Cancelled Immature Gran % (Auto) Cancelled Neut % (Auto) Cancelled Lymph % (Auto) Cancelled [place] % (Auto) Cancelled Eos % (Auto) Cancelled Baso % (Auto) Cancelled Absolute Neuts (auto) Cancelled Absolute Lymphs (auto) Cancelled Total Counted Cancelled Neutrophils % (Manual) Cancelled Band Neutrophils % Cancelled Lymphocytes % (Manual) Cancelled Monocytes % (Manual) Cancelled Eosinophils % (Manual) Cancelled Basophils % (Manual) Cancelled Metamyelocytes % Cancelled Myelocytes % Cancelled Promyelocytes % Cancelled Blast Cells % Cancelled Plasma Cell % (Manual) Cancelled Other Cells % Cancelled Nucleated RBCs/100 WBC Cancelled Differential Comment Cancelled Diff Path Review Cancelled Hypersegmented Neuts Cancelled Atypical Lymphocytes Cancelled Reactive Lymphocytes Cancelled Smudge Cells Cancelled Toxic Granulation Cancelled Dohle Bodies Cancelled Ariela Rods Cancelled Platelet Estimate Cancelled Plt Morphology Comment Cancelled RBC Morphology Cancelled Polychromasia Cancelled Hypochromasia Cancelled Poikilocytosis Cancelled Basophilic Stippling Cancelled Anisocytosis Cancelled Microcytosis Cancelled Macrocytosis Cancelled Spherocytes Cancelled Sickle Cells Cancelled Target Cells Cancelled Tear Drop Cells Cancelled Ovalocytes Cancelled Stomatocytes Cancelled Joseph-Wolsey Bodies Cancelled [place] Cells Cancelled Bite Cells Cancelled Acanthocytes (Spur) Cancelled Rouleaux Cancelled Schistocytes Cancelled Specimen Type Sample Site pH Bicarbonate Actual POC Total CO2 Base Excess O2 Saturation O2 % ABG pCO2 ABG pO2 Aroldo Test Respiration Rate O2 Delivery Device Vent Mode Tidal Volume POC PEEP Blood Gas Notified Whom Sodium 137 Potassium 4.6 Chloride 106 Carbon Dioxide 18.0 L Anion Gap 13 BUN 47 H Creatinine 4.74 H Estim Creat Clear Calc 15.28 Est GFR (MDRD) Af Amer 13 L Est GFR (MDRD) Non-Af 11 L BUN/Creatinine Ratio 9.9 L Glucose 234 H Hemoglobin A1c Lactic Acid Calcium 7.6 L Magnesium Total Bilirubin Direct Bilirubin AST ALT Alkaline Phosphatase Total Creatine Kinase CK Isoenzymes CK-MM (CK-3) CK-MB (CK-2) CK-BB (CK-1) Troponin I < 0.015 Total Protein Albumin Globulin Triglycerides Urine Color Urine Clarity Urine pH Ur Specific [place] Urine Protein Urine Glucose (UA) Urine Ketones Urine Occult Blood Urine Nitrite Urine Bilirubin Urine Urobilinogen Ur Leukocyte Esterase Urine RBC Urine WBC Ur Squamous Epith Cells Amorphous Sediment Urine Bacteria Urine Mucus Acetone Level MRSA (PCR) 01/17/18 05:00 WBC 13.5 H Corrected WBC RBC 3.52 L Hgb 11.6 L Hct 33.8 L MCV 96.0 MCH 33.0 H MCHC 34.3 RDW 12.4 RDW Differential 43.1 Plt Count 245 MPV 9.6 Immature Gran % (Auto) 0.200 Neut % (Auto) 73.7 H Lymph % (Auto) 16.7 L [place] % (Auto) 8.6 Eos % (Auto) 0.7 Baso % (Auto) 0.1 Absolute Neuts (auto) 9.9 H Absolute Lymphs (auto) 2.25 Total Counted Not Reportable Neutrophils % (Manual) Band Neutrophils % Lymphocytes % (Manual) Monocytes % (Manual) Eosinophils % (Manual) Basophils % (Manual) Metamyelocytes % Myelocytes % Promyelocytes % Blast Cells % Plasma Cell % (Manual) Other Cells % Nucleated RBCs/100 WBC Differential Comment Diff Path Review Hypersegmented Neuts Atypical Lymphocytes Reactive Lymphocytes Smudge Cells Toxic Granulation Dohle Bodies Ariela Rods Platelet Estimate Plt Morphology Comment RBC Morphology Polychromasia Hypochromasia Poikilocytosis Basophilic Stippling Anisocytosis Microcytosis Macrocytosis Spherocytes Sickle Cells Target Cells Tear Drop Cells Ovalocytes Stomatocytes Joseph-Wolsey Bodies [place] Cells Bite Cells Acanthocytes (Spur) Rouleaux Schistocytes Specimen Type Sample Site pH Bicarbonate Actual POC Total CO2 Base Excess O2 Saturation O2 % ABG pCO2 ABG pO2 Aroldo Test Respiration Rate O2 Delivery Device Vent Mode Tidal Volume POC PEEP Blood Gas Notified Whom Sodium Potassium Chloride Carbon Dioxide Anion Gap BUN Creatinine Estim Creat Clear Calc Est GFR (MDRD) Af Amer Est GFR (MDRD) Non-Af BUN/Creatinine Ratio Glucose Hemoglobin A1c Lactic Acid Calcium Magnesium Total Bilirubin Direct Bilirubin AST ALT Alkaline Phosphatase Total Creatine Kinase CK Isoenzymes CK-MM (CK-3) CK-MB (CK-2) CK-BB (CK-1) Troponin I Total Protein Albumin Globulin Triglycerides Urine Color Urine Clarity Urine pH Ur Specific [place] Urine Protein Urine Glucose (UA) Urine Ketones Urine Occult Blood Urine Nitrite Urine Bilirubin Urine Urobilinogen Ur Leukocyte Esterase Urine RBC Urine WBC Ur Squamous Epith Cells Amorphous Sediment Urine Bacteria Urine Mucus Acetone Level MRSA (PCR) POC Glucose 01/17/18 01/16/18 01:19 22:39 POC Glucose 257 H 283 H Clinical Impression(s) from Imaging Studies Chest X-Ray 01/16/18 22:20 IMPRESSION: Satisfactory position of the support lines and tubes. Bibasilar atelectasis. Otherwise, clear lungs. Electronically Signed: Kwan Westbrook, at 22:50 EDT Tel , Service support , KUB X-Ray 01/17/18 02:35 IMPRESSION: Appropriate positioning of orogastric tube. Electronically Signed: Brian Marvin MD at 3:19 EDT Tel , Service support , Assessment/Plan Active and Suspected Problems (Last Updated 10/15/17 @ 13:10 by Michelle Flores) Acute respiratory failure (Acute) ARF (acute renal failure) (Acute) Hyperosmolarity due to secondary diabetes (Acute) RECOMMENDATIONS: 1. Given the patient's rash elevated CK level, recommend discontinuation of propofol. Uptitrate fentanyl as needed for sedation. Maintain RASS of -1 to 1. 2. Continue patient on mechanical ventilatory support today. Okay to start tube feeds per my perspective. 3. Plan for daily paired spontaneous awakening and breathing trials. 4. Obtain urine toxicology screen and check TSH level 5. Continue antibiotics over concerns for prolonged downtime and potential aspiration 6. Transition IV fluids from normal saline to lactated Ringer's 7. Continue appropriate ICU prophylaxis IMPRESSIONS: 1. Acute respiratory failure The patient was initially intubated at [facility] emergency department over concerns for airway protection in the setting of #2. She will be maintained on full mechanical ventilatory support today. FiO2 can be weaned to maintain an oxygen saturation at or above 90%. Infectious workup will be undertaken. Antibiotics will be continued in the interim. Plan for daily paired spontaneous awakening and breathing trials. Okay from my perspective to start tube feeds today. 2. Encephalopathy, likely secondary to polypharmacy with questionable overdose versus metabolic in etiology The patient is on a number of sedating medications with high abuse potential in her home environment. Her encephalopathy noted on presentation may be secondary to polypharmacy with questionable overdose. Check urine toxicology screen. In addition, given the patient's history of hypothyroidism, check serum TSH level. The patient's propofol will be discontinued and fentanyl will be optimized to maintain a RASS of -1 to 1. 3. Acute kidney injury/non-gap metabolic acidosis Likely prerenal in etiology due to downtime, coupled with likely ATN. The patient's supplemental IV fluids will be transitioned from normal saline to lactated Ringer's. Anticipate improvement in the patient's metabolic derangements with volume expansion. Renal ultrasound is currently pending. Continue to monitor urine output accordingly. No indication at the present time for renal replacement therapy. 4. Personal history of chronic pain syndrome/diabetes/depression/hypothyroidism Complicates care, management, recovery and prognosis. Continue sliding scale insulin coverage for now. Continue Synthroid and check TSH level. TIME: 48 minutes of critical care time, independent of procedures, was spent addressing the patient's acute respiratory failure, encephalopathy, acute kidney injury, metabolic acidosis, chronic pain syndrome, review of all data and collaboration with the care team. ([id number]) Code Visit [id number]: [id number] Critical care first hour
--- NOTE | 2018-01-17 07:14 | PN_ITS ---
Patient Problems: Active and Suspected Problems (Last Updated 10/15/17 @ 13:10 by Michelle Flores) Acute respiratory failure (Acute) ARF (acute renal failure) (Acute) Hyperosmolarity due to secondary diabetes (Acute) Subjective: Patient was seen and examined. Remains intubated in ICU. Admitted last night with acute respiratory failure after being found down. Blood sugars were found to be elevated. No acute events overnight, remains on fentanyl and propofol. Vitals/I&O's: Vital Signs Temp Pulse Resp BP Pulse Ox 97.0 F L 109 H 14 103/52 L 100 01/17/18 03:00 01/17/18 06:00 01/17/18 06:00 01/17/18 06:00 01/17/18 06:00 Oxygen Delivery Method Mechanical Ventilator Weight: 167.3 kg Body Mass Index (BMI) 56.0 Finger Stick Blood Glucose 195 Intake and Output for Last 24 Hours 01/15/18 01/16/18 01/17/18 23:59 23:59 23:59 Intake Total 3644.9 / 3644.9 Output Total 1475 / 1475 Balance 2169.9 / 2169.9 General: Alert, Cooperative, Lethargic - sedated, opens eyes, not communicative because of meds HEENT: Atraumatic, PERRLA, EOMI, Normocephalic Oral: Moist Mucosa, - - s/p intubation and orogastric tube insertion Neck: Supple Lungs: Clear to auscultation, Normal air movement Cardiovascular: Regular rate, Regular Rhythm, Normal S1, Normal S2, No murmurs, Tachycardic Abdomen: Bowel Sounds Present, Soft, Non Tender, Non-Distended Extremities: No edema, - - Bilateral upper extremity erythema with differential warmth, unclear if this is cellulitis Skin: - - Left upper extremity erythema with differential warmth Musculoskeletal: No Tenderness to Palpation of Joints or Extremities Lymphatic: No Cervical, Supraclavicular, or Inguinal Adenopathy Neurological: Cranial nerves II-XII grossly intact, Motor Exam 5/5 strength throughout Psych/Mental Status: Normal Affect, Appropriate Laboratory Results 01/16/18 20:00: MRSA (PCR) POSITIVE H 01/16/18 22:39: POC Glucose 283 H 01/16/18 22:40: CK Isoenzymes Pending, CK-MM (CK-3) Pending, CK-MB (CK-2) Pending, CK-BB (CK-1) Pending 01/16/18 22:40: Acetone Level NEGATIVE 01/16/18 22:40: Magnesium 1.6, Total Bilirubin 0.50, Direct Bilirubin 0.18, AST 130 H, ALT 59 H, Alkaline Phosphatase 63, Troponin I < 0.015, Total Protein 6.5 , Albumin 2.6 L, Globulin 3.9 01/16/18 22:40: Lactic Acid 1.4 01/16/18 22:40: Hemoglobin A1c 9.1 H 01/16/18 22:40: Sodium 133 L, Potassium 5.1, Chloride 103, Carbon Dioxide 18.0 L , Anion Gap 12, BUN 47 H, Creatinine 4.94 H, Estim Creat Clear Calc 14.66, Est GFR (MDRD) Af Amer 12 L, Est GFR (MDRD) Non-Af 10 L, BUN/Creatinine Ratio 9.5 L , Glucose 272 H, Calcium 8.0 L 01/16/18 22:40: Total Creatine Kinase 4924 H 01/16/18 23:20: Urine Color Yellow, Urine Clarity Sl. Cloudy, Urine pH 5.0, Ur Specific [place] 1.020, Urine Protein 100 H, Urine Glucose (UA) 100 H, Urine Ketones Negative, Urine Occult Blood 250 H, Urine Nitrite Negative, Urine Bilirubin Negative, Urine Urobilinogen Normal, Ur Leukocyte Esterase 100 H, Urine RBC 0-5 SEEN, Urine WBC 5-10 SEEN, Ur Squamous Epith Cells 0-5 SEEN, Amorphous Sediment 1+, Urine Bacteria RARE, Urine Mucus 1+ 01/16/18 23:20: Urine Opiates Screen Pending, Urine Methadone Screen Pending, Ur Barbiturates Screen Pending, Ur Phencyclidine Scrn Pending, Ur Amphetamines Screen Pending, U Methamphetamin-MDMA Pending, U Benzodiazepines Scrn Pending, Urine Cocaine Screen Pending, U Cannabinoids Screen Pending, Ur Drug Screen Comment 01/16/18 23:47: Specimen Type ART, Sample Site L Radial, pH 7.28 L, Bicarbonate Actual 16.6 L, POC Total CO2 18, Base Excess -10 L, O2 Saturation 99, O2 % 40, ABG pCO2 35.6, ABG pO2 134 H, [place]o Test POS, Respiration Rate 16, O2 Delivery Device Vent, Vent Mode A-C, Tidal Volume 550, POC PEEP 5, Blood Gas Notified Whom HOSP 01/17/18 01:19: POC Glucose 257 H 01/17/18 02:00: Troponin I < 0.015, Triglycerides 180 01/17/18 02:00: Sodium 135 L, Potassium 4.5, Chloride 106, Carbon Dioxide 19.0 L , Anion Gap 10, BUN 48 H, Creatinine 4.81 H, Estim Creat Clear Calc 15.06, Est GFR (MDRD) Af Amer 13 L, Est GFR (MDRD) Non-Af 10 L, BUN/Creatinine Ratio 10.0, Glucose 236 H, Calcium 7.7 L 01/17/18 04:25: WBC Cancelled, Corrected WBC Cancelled, RBC Cancelled, Hgb Cancelled, Hct Cancelled, MCV Cancelled, MCH Cancelled, MCHC Cancelled, RDW Cancelled, RDW Differential Cancelled, Plt Count Cancelled, MPV Cancelled, Immature Gran % (Auto) Cancelled, Neut % (Auto) Cancelled, Lymph % (Auto) Cancelled, [place] % (Auto) Cancelled, Eos % (Auto) Cancelled, Baso % (Auto) Cancelled, Absolute Neuts (auto) Cancelled, Absolute Lymphs (auto) Cancelled, Total Counted Cancelled, Neutrophils % (Manual) Cancelled, Band Neutrophils % Cancelled, Lymphocytes % (Manual) Cancelled, Monocytes % (Manual) Cancelled, Eosinophils % (Manual) Cancelled, Basophils % (Manual) Cancelled, Metamyelocytes % Cancelled, Myelocytes % Cancelled, Promyelocytes % Cancelled, Blast Cells % Cancelled, Plasma Cell % (Manual) Cancelled, Other Cells % Cancelled, Nucleated RBCs/100 WBC Cancelled, Differential Comment Cancelled, Diff Path Review Cancelled, Hypersegmented Neuts Cancelled, Atypical Lymphocytes Cancelled, Reactive Lymphocytes Cancelled, Smudge Cells Cancelled, Toxic Granulation Cancelled, Dohle Bodies Cancelled, Ariela Rods Cancelled, Platelet Estimate Cancelled, Plt Morphology Comment Cancelled, RBC Morphology Cancelled, Polychromasia Cancelled, Hypochromasia Cancelled, Poikilocytosis Cancelled, Basophilic Stippling Cancelled, Anisocytosis Cancelled, Microcytosis Cancelled, Macrocytosis Cancelled, Spherocytes Cancelled, Sickle Cells Cancelled , Target Cells Cancelled, Tear Drop Cells Cancelled, Ovalocytes Cancelled, Stomatocytes Cancelled, [place] Bodies Cancelled, [place] Cells Cancelled, Bite Cells Cancelled, Acanthocytes (Spur) Cancelled, Rouleaux Cancelled, Schistocytes Cancelled 01/17/18 04:25: Troponin I < 0.015 01/17/18 04:25: Sodium 137, Potassium 4.6, Chloride 106, Carbon Dioxide 18.0 L, Anion Gap 13, BUN 47 H, Creatinine 4.74 H, Estim Creat Clear Calc 15.28, Est GFR (MDRD) Af Amer 13 L, Est GFR (MDRD) Non-Af 11 L, BUN/Creatinine Ratio 9.9 L , Glucose 234 H, Calcium 7.6 L 01/17/18 05:00: WBC 13.5 H, RBC 3.52 L, Hgb 11.6 L, Hct 33.8 L, MCV 96.0, MCH 33.0 H, MCHC 34.3, RDW 12.4, RDW Differential 43.1, Plt Count 245, MPV 9.6, Immature Gran % (Auto) 0.200, Neut % (Auto) 73.7 H, Lymph % (Auto) 16.7 L, [place] % (Auto) 8.6, Eos % (Auto) 0.7, Baso % (Auto) 0.1, Absolute Neuts (auto) 9.9 H, Absolute Lymphs (auto) 2.25, Total Counted Not Reportable Current Medications Albuterol Sulfate (Ventolin Aerosols) 2.5 mg INHALATION Q4H.RT NUNU Last Admin: 01/17/18 06:27 Dose: 2.5 mg Chlorhexidine Gluconate () 15 ml PO BID NUNU Last Admin: 01/16/18 23:19 Dose: 15 ml Chlorhexidine Gluconate () 1 each TOPICAL DAILY NUNU Last Admin: 01/17/18 05:36 Dose: 1 each Dextrose (D50w Syringe) 0 gm IV X1 PRN; Protocol PRN Reason: BG < 70 Heparin Sodium (Porcine) (Heparin Na) 5,000 unit SC Q8 NUNU Last Admin: 01/17/18 05:36 Dose: 5,000 units Pantoprazole Sodium 40 mg/ (Sodium Chloride) 110 mls @ 330 mls/hr IV Q24 NUNU Last Admin: 01/16/18 22:59 Dose: 330 mls/hr Sodium Chloride () 250 mls @ 15 mls/hr IV .[id number] PRN PRN Reason: SALINE FLUSH Fentanyl () 100 mls @ 5 mls/hr IV .Q20H NUNU Propofol (Diprivan) 1,000 mg in 100 mls @ 5.019 mls/hr CONT INF .Q12H NUNU; 5 MCG/KG/MIN PRN Reason: Protocol Last Admin: 01/17/18 04:51 Dose: 5.019 mls/hr Sodium Chloride () 1,000 mls @ 150 mls/hr IV .[id number] NUNU Last Admin: 01/17/18 03:49 Dose: Not Given Piperacillin Sod/Tazobactam Sod (Zosyn) 3.375 gm in 50 mls @ 12.5 mls/hr IV Q12 NUNU Insulin Human Lispro (Humalog Kwikpen (Bkc)) 0 unit SC Q6 NUNU PRN Reason: Protocol Last Admin: 01/17/18 05:40 Dose: 2 units Magnesium Hydroxide (Milk Of Magnesia) 30 ml PO DAILY PRN PRN PRN Reason: Constipation Sodium Chloride () 5 - 30 ml IV UD PRN PRN Reason: SALINE FLUSH Last Admin: 01/17/18 04:58 Dose: 30 ml Sodium Chloride () 10 - 40 ml IV UD PRN PRN Reason: MULTILUMEN/HICMAN CATH FLUSH Medical Necessity - Tobacco Use Smoking Status: Former smoker Assessment/Plan All Active Problems (Last Updated 10/15/17 @ 13:10 by Michelle Flores) Acute respiratory failure (Acute) ARF (acute renal failure) (Acute) Hyperosmolarity due to secondary diabetes (Acute) Depression (Acute) Diabetes mellitus (Acute) 42-year-old female with past medical history of hypertension, DM, morbid obesity , chronic pain syndrome, admitted directly from [facility] with acute respiratory failure. Patient is reportedly noncompliant with her insulin and was found lying down by her family. 1. Acute hypoxic respiratory failure, likely multifactorial - Hyperglycemia, medication side-effects as patient is on multiple central acting medications, chest x-ray showed bibasilar atelectasis but otherwise clinically clear, being managed currently in the ICU, intubated, on mechanical ventilation. Plan: Continue current management per sound technician with IV fentanyl and propofol , further management with respect to extubation per sound technician timing 2. Hyperglycemia, no DKA or HHS, known diabetic, anion gap is 13, noncompliant , sugars here have been in the 200s, off insulin drip, given 1 dose of Lantus 10 units ?1 this am, on insulin sliding scale q. 6, Plan: will continue with Accu-Cheks and monitoring of blood sugars. 3. Acute kidney injury likely secondary to dehydration versus osmotic diuresis versus rhabdomyolysis, her creatinine was 1.47 in November 2017, creatinine this morning is 4.74, UA is mild protein, occult blood. Plan: Will check renal ultrasound, would continue IV hydration and repeat blood work in a.m, nephrology consult if patient continues to have stent AKA. 4. Rhabdomyolysis, mild, CK is 4924, continue IV fluids, repeat labs in a.m. 5. Non-gap metabolic acidosis secondary to BAMBI, will continue to follow BMP, repeat labs in am 6. Hypertension, controlled, was on lisinopril 10 mg at home, would hold lisinopril and on the light of kidney injury, if blood pressure becomes elevated , would start on hydralazine as needed 7. Hypothyroidism, resume on levothyroxine 8. Depression, home medications on hold for now, will resume when extubated 9. Morbid obesity, BMI 56.1 10. DVT prophylaxis with heparin subcu Code Visit Inpatient E&M: 89125 Subs Hosp L3
[2018-01-17 07:25] LABS: Amphetamine Urine VISTA NEGATIVE (<1000 ng/mL); Barbiturate Urine VISTA NEGATIVE (< 200 ng/mL); Benzodiazepine Urine VISTA POSITIVE (< 200 ng/mL); Cocaine Urine VISTA NEGATIVE (< 300 ng/mL); Ecstacy Urine VISTA NEGATIVE (< 500 ng/mL); Methadone Urine VISTA NEGATIVE (< 300 ng/mL); PCP Urine VISTA NEGATIVE (< 25 ng/mL); THC Urine VISTA NEGATIVE (< 50 ng/mL); Vista UDS pH Range 5
[2018-01-17] MEDS: Lactated Ringers 1,000 ML 150 ML IV ×3 (07:52→20:11)
--- NOTE | 2018-01-17 07:58 | US_ITS ---
STUDY: RENAL ULTRASOUND - COMPLETE REASON FOR EXAM: Female, 42 years old. Acute renal failure TECHNIQUE: Ultrasound evaluation of the kidneys was performed with real-time and static koch-scale imaging. COMPARISON: None. FINDINGS: Study limited due to patient condition and body habitus. RIGHT KIDNEY: Normal location of the right kidney, which is normal in size. The right kidney measures 14.7 x 6.7 x 7.8 cm. There is a normal cortex of the right kidney. The renal cortex measures 2 cm. There is no right renal mass or cyst. There are no right renal calculi. There is no right hydronephrosis. DISTAL RIGHT URETER: There is non-visualization of the distal right ureter. There is no demonstrated right ureterovesical junction calculus. There is no demonstrated right ureteral jet. LEFT KIDNEY: Normal location of the left kidney, which is normal in size. The left kidney measures 13.5 x 6.3 x 5.9 cm. There is a normal cortex of the left kidney. The renal cortex measures 1.7 cm. There is no left renal mass or cyst. There are no left renal calculi. There is no left hydronephrosis. DISTAL LEFT URETER: There is non-visualization of the distal left ureter. There is no demonstrated left ureterovesical junction calculus. There is no demonstrated left ureteral jet. BLADDER: There is a Hernandez catheter in a collapsed bladder. US/Kidney and Bladder IMPRESSION: Both kidneys are enlarged. No hydronephrosis. Hernandez catheter in the bladder. Electronically Signed: Vito Katz DO at 10:05 EDT , Service support ,
[2018-01-17 08:27] LABS: Thyroid Stim Hormone (TSH) 1.55 uIU/mL (0.358-3.74)
[2018-01-17] MEDS: Chlorhexidine 15 ML PO ×2 (09:27→21:26)
[2018-01-17] MEDS: Levothyroxine 150 MCG Tablet 300 MCG GT (09:27)
[2018-01-17 11:51] LABS: Bedside Glucose 251 mg/dL (70-110)
[2018-01-17 17:25] LABS: Bedside Glucose 243 mg/dL (70-110)
[2018-01-17] MEDS: Nystatin Powder 15gm Bottle 1 APPLIC TOPICAL (21:27)
[2018-01-18] VITALS (38 sets, daily range): BP systolic 89–146; BP diastolic 49–92; PULSE 81–121; RESP 11–22; TEMP 36.2–36.6; O2SAT 92–100
[2018-01-18 00:05] LABS: Bedside Glucose 243 mg/dL (70-110)
[2018-01-18] MEDS: Propofol 10MG/Ml 1,000 MG/100 ML Bottle 5.019 MG CONT INF (01:39)
[2018-01-18] MEDS: Albuterol 2.5 MG/3 ML VIAL.NEB. INHALATION ×3 (03:17→18:45)
[2018-01-18] MEDS: Levothyroxine 150 MCG Tablet 300 MCG GT (05:42)
[2018-01-18] MEDS: Lactated Ringers 1,000 ML 150 ML IV ×3 (05:42→17:10)
[2018-01-18] MEDS: Heparin Injection (Vial) 5,000 UNIT/ML VIAL 5000 UNIT SC ×3 (05:43→21:58)
[2018-01-18] MEDS: Insulin Lispro 100 UNIT/ML INSULN.PEN SC (05:44)
[2018-01-18 05:56] LABS: Bedside Glucose 260 mg/dL (70-110)
[2018-01-18 06:44] LABS: Vancomycin, Random Level 12.3 ug/mL (0.0-15.0)
--- NOTE | 2018-01-18 07:08 | PCM.PN.INT ---
Subjective: The patient was seen and examined at the bedside this morning. Events from the last 24 hours have been reviewed. The patient is currently afebrile, hemodynamically stable and maintaining appropriate oxygen saturations with an FiO2 requirement of 35%. No significant secretions were noted by respiratory therapy. The patient did well overnight. She is currently being maintained on CPAP after passing her spontaneous breathing trial this morning. Urine output has been good. Objective: The patient's most recent lab work, culture data and imaging studies have all been personally reviewed. Blood, urine and sputum cultures are pending. General: - - Remains intubated and mechanically ventilated. Currently tolerating CPAP mode without issue. HEENT: Atraumatic, PERRLA, Normocephalic Oral: No Gingival or Mucosal Lesions/ Ulcerations, - - Endotracheal and OG tubes remain in place. Neck: Supple, No Nodes, Trachea Midline, - - Right IJ triple-lumen catheter remains in place. Lungs: No rhonchi, No wheeze, No rales, Diminished Cardiovascular: Normal S1, Normal S2, No murmurs, No rub noted, No Gallop, Tachycardic Abdomen: Bowel Sounds Present, Soft, Non Tender, Obese Extremities: No clubbing, No cyanosis, No edema Skin: - - Mild improvement in the previously noted erythematous rash Musculoskeletal: No Tenderness to Palpation of Joints or Extremities, No Muscle Wasting Lymphatic: No Cervical, Supraclavicular, or Inguinal Adenopathy Neurological: - - No focal neurological deficits. Moves all extremities spontaneously. Alert and following commands appropriately. Vital Signs Temp Pulse Resp BP Pulse Ox 97.1 F L 116 H 17 105/92 H 92 01/18/18 04:00 01/18/18 07:00 01/18/18 07:00 01/18/18 07:00 01/18/18 07:00 Oxygen Flow Rate (L/min) 5 Oxygen Delivery Method Nasal Cannula Weight: 372 lb 2.244 oz Body Mass Index (BMI) 56.0 Finger Stick Blood Glucose 195 Intake and Output for Last 24 Hours 01/16/18 01/17/18 01/18/18 23:59 23:59 23:59 Intake Total 6268.9 / 6268.9 2879.5 / 2879.5 Output Total 3775 / 3775 3700 / 3700 Balance 2493.9 / 2493.9 -820.5 / -820.5 Labs (Last 48 Hours) 01/16/18 01/16/18 01/16/18 20:00 22:39 22:40 WBC Corrected WBC RBC Hgb Hct MCV MCH MCHC RDW RDW Differential Plt Count MPV Immature Gran % (Auto) Neut % (Auto) Lymph % (Auto) [place] % (Auto) Eos % (Auto) Baso % (Auto) Absolute Neuts (auto) Absolute Lymphs (auto) Total Counted Neutrophils % (Manual) Band Neutrophils % Lymphocytes % (Manual) Monocytes % (Manual) Eosinophils % (Manual) Basophils % (Manual) Metamyelocytes % Myelocytes % Promyelocytes % Blast Cells % Plasma Cell % (Manual) Other Cells % Nucleated RBCs/100 WBC Differential Comment Diff Path Review Hypersegmented Neuts Atypical Lymphocytes Reactive Lymphocytes Smudge Cells Toxic Granulation Dohle Bodies Ariela Rods Platelet Estimate Plt Morphology Comment RBC Morphology Polychromasia Hypochromasia Poikilocytosis Basophilic Stippling Anisocytosis Microcytosis Macrocytosis Spherocytes Sickle Cells Target Cells Tear Drop Cells Ovalocytes Stomatocytes Joseph-Baird Bodies [place] Cells Bite Cells Acanthocytes (Spur) Rouleaux Schistocytes Specimen Type Sample Site pH Bicarbonate Actual POC Total CO2 Base Excess O2 Saturation O2 % ABG pCO2 ABG pO2 Aroldo Test Respiration Rate O2 Delivery Device Vent Mode Tidal Volume POC PEEP Blood Gas Notified Whom Sodium Potassium Chloride Carbon Dioxide Anion Gap BUN Creatinine Estim Creat Clear Calc Est GFR (MDRD) Af Amer Est GFR (MDRD) Non-Af BUN/Creatinine Ratio Glucose Hemoglobin A1c Lactic Acid Calcium Magnesium Total Bilirubin Direct Bilirubin AST ALT Alkaline Phosphatase Total Creatine Kinase CK Isoenzymes Pending CK-MM (CK-3) Pending CK-MB (CK-2) Pending CK-BB (CK-1) Pending Troponin I Total Protein Albumin Globulin Triglycerides TSH Urine Color Urine Clarity Urine pH Ur Specific [place] Urine Protein Urine Glucose (UA) Urine Ketones Urine Occult Blood Urine Nitrite Urine Bilirubin Urine Urobilinogen Ur Leukocyte Esterase Urine RBC Urine WBC Ur Squamous Epith Cells Amorphous Sediment Urine Bacteria Urine Mucus Random Vancomycin Urine Opiates Screen Urine Methadone Screen Ur Barbiturates Screen Ur Phencyclidine Scrn Ur Amphetamines Screen U Methamphetamin-MDMA U Benzodiazepines Scrn Urine Cocaine Screen U Cannabinoids Screen Ur Drug Screen Comment Acetone Level MRSA (PCR) POSITIVE H POC Glucose 283 H 01/16/18 01/16/18 01/16/18 22:40 22:40 22:40 WBC Corrected WBC RBC Hgb Hct MCV MCH MCHC RDW RDW Differential Plt Count MPV Immature Gran % (Auto) Neut % (Auto) Lymph % (Auto) [place] % (Auto) Eos % (Auto) Baso % (Auto) Absolute Neuts (auto) Absolute Lymphs (auto) Total Counted Neutrophils % (Manual) Band Neutrophils % Lymphocytes % (Manual) Monocytes % (Manual) Eosinophils % (Manual) Basophils % (Manual) Metamyelocytes % Myelocytes % Promyelocytes % Blast Cells % Plasma Cell % (Manual) Other Cells % Nucleated RBCs/100 WBC Differential Comment Diff Path Review Hypersegmented Neuts Atypical Lymphocytes Reactive Lymphocytes Smudge Cells Toxic Granulation Dohle Bodies Ariela Rods Platelet Estimate Plt Morphology Comment RBC Morphology Polychromasia Hypochromasia Poikilocytosis Basophilic Stippling Anisocytosis Microcytosis Macrocytosis Spherocytes Sickle Cells Target Cells Tear Drop Cells Ovalocytes Stomatocytes Joseph-Baird Bodies [place] Cells Bite Cells Acanthocytes (Spur) Rouleaux Schistocytes Specimen Type Sample Site pH Bicarbonate Actual POC Total CO2 Base Excess O2 Saturation O2 % ABG pCO2 ABG pO2 Aroldo Test Respiration Rate O2 Delivery Device Vent Mode Tidal Volume POC PEEP Blood Gas Notified Whom Sodium Potassium Chloride Carbon Dioxide Anion Gap BUN Creatinine Estim Creat Clear Calc Est GFR (MDRD) Af Amer Est GFR (MDRD) Non-Af BUN/Creatinine Ratio Glucose Hemoglobin A1c Lactic Acid 1.4 Calcium Magnesium 1.6 Total Bilirubin 0.50 Direct Bilirubin 0.18 AST 130 H ALT 59 H Alkaline Phosphatase 63 Total Creatine Kinase CK Isoenzymes CK-MM (CK-3) CK-MB (CK-2) CK-BB (CK-1) Troponin I < 0.015 Total Protein 6.5 Albumin 2.6 L Globulin 3.9 Triglycerides TSH Urine Color Urine Clarity Urine pH Ur Specific [place] Urine Protein Urine Glucose (UA) Urine Ketones Urine Occult Blood Urine Nitrite Urine Bilirubin Urine Urobilinogen Ur Leukocyte Esterase Urine RBC Urine WBC Ur Squamous Epith Cells Amorphous Sediment Urine Bacteria Urine Mucus Random Vancomycin Urine Opiates Screen Urine Methadone Screen Ur Barbiturates Screen Ur Phencyclidine Scrn Ur Amphetamines Screen U Methamphetamin-MDMA U Benzodiazepines Scrn Urine Cocaine Screen U Cannabinoids Screen Ur Drug Screen Comment Acetone Level NEGATIVE MRSA (PCR) POC Glucose 01/16/18 01/16/18 01/16/18 22:40 22:40 22:40 WBC Corrected WBC RBC Hgb Hct MCV MCH MCHC RDW RDW Differential Plt Count MPV Immature Gran % (Auto) Neut % (Auto) Lymph % (Auto) [place] % (Auto) Eos % (Auto) Baso % (Auto) Absolute Neuts (auto) Absolute Lymphs (auto) Total Counted Neutrophils % (Manual) Band Neutrophils % Lymphocytes % (Manual) Monocytes % (Manual) Eosinophils % (Manual) Basophils % (Manual) Metamyelocytes % Myelocytes % Promyelocytes % Blast Cells % Plasma Cell % (Manual) Other Cells % Nucleated RBCs/100 WBC Differential Comment Diff Path Review Hypersegmented Neuts Atypical Lymphocytes Reactive Lymphocytes Smudge Cells Toxic Granulation Dohle Bodies Ariela Rods Platelet Estimate Plt Morphology Comment RBC Morphology Polychromasia Hypochromasia Poikilocytosis Basophilic Stippling Anisocytosis Microcytosis Macrocytosis Spherocytes Sickle Cells Target Cells Tear Drop Cells Ovalocytes Stomatocytes Joseph-Baird Bodies [place] Cells Bite Cells Acanthocytes (Spur) Rouleaux Schistocytes Specimen Type Sample Site pH Bicarbonate Actual POC Total CO2 Base Excess O2 Saturation O2 % ABG pCO2 ABG pO2 Aroldo Test Respiration Rate O2 Delivery Device Vent Mode Tidal Volume POC PEEP Blood Gas Notified Whom Sodium 133 L Potassium 5.1 Chloride 103 Carbon Dioxide 18.0 L Anion Gap 12 BUN 47 H Creatinine 4.94 H Estim Creat Clear Calc 14.66 Est GFR (MDRD) Af Amer 12 L Est GFR (MDRD) Non-Af 10 L BUN/Creatinine Ratio 9.5 L Glucose 272 H Hemoglobin A1c 9.1 H Lactic Acid Calcium 8.0 L Magnesium Total Bilirubin Direct Bilirubin AST ALT Alkaline Phosphatase Total Creatine Kinase 4924 H CK Isoenzymes CK-MM (CK-3) CK-MB (CK-2) CK-BB (CK-1) Troponin I Total Protein Albumin Globulin Triglycerides TSH Urine Color Urine Clarity Urine pH Ur Specific [place] Urine Protein Urine Glucose (UA) Urine Ketones Urine Occult Blood Urine Nitrite Urine Bilirubin Urine Urobilinogen Ur Leukocyte Esterase Urine RBC Urine WBC Ur Squamous Epith Cells Amorphous Sediment Urine Bacteria Urine Mucus Random Vancomycin Urine Opiates Screen Urine Methadone Screen Ur Barbiturates Screen Ur Phencyclidine Scrn Ur Amphetamines Screen U Methamphetamin-MDMA U Benzodiazepines Scrn Urine Cocaine Screen U Cannabinoids Screen Ur Drug Screen Comment Acetone Level MRSA (PCR) POC Glucose 01/16/18 01/16/18 01/16/18 23:20 23:20 23:47 WBC Corrected WBC RBC Hgb Hct MCV MCH MCHC RDW RDW Differential Plt Count MPV Immature Gran % (Auto) Neut % (Auto) Lymph % (Auto) [place] % (Auto) Eos % (Auto) Baso % (Auto) Absolute Neuts (auto) Absolute Lymphs (auto) Total Counted Neutrophils % (Manual) Band Neutrophils % Lymphocytes % (Manual) Monocytes % (Manual) Eosinophils % (Manual) Basophils % (Manual) Metamyelocytes % Myelocytes % Promyelocytes % Blast Cells % Plasma Cell % (Manual) Other Cells % Nucleated RBCs/100 WBC Differential Comment Diff Path Review Hypersegmented Neuts Atypical Lymphocytes Reactive Lymphocytes Smudge Cells Toxic Granulation Dohle Bodies Ariela Rods Platelet Estimate Plt Morphology Comment RBC Morphology Polychromasia Hypochromasia Poikilocytosis Basophilic Stippling Anisocytosis Microcytosis Macrocytosis Spherocytes Sickle Cells Target Cells Tear Drop Cells Ovalocytes Stomatocytes Joseph-Baird Bodies [place] Cells Bite Cells Acanthocytes (Spur) Rouleaux Schistocytes Specimen Type ART Sample Site L Radial pH 7.28 L Bicarbonate Actual 16.6 L POC Total CO2 18 Base Excess -10 L O2 Saturation 99 O2 % 40 ABG pCO2 35.6 ABG pO2 134 H Aroldo Test POS Respiration Rate 16 O2 Delivery Device Vent Vent Mode A-C Tidal Volume 550 POC PEEP 5 Blood Gas Notified Whom HOSP Sodium Potassium Chloride Carbon Dioxide Anion Gap BUN Creatinine Estim Creat Clear Calc Est GFR (MDRD) Af Amer Est GFR (MDRD) Non-Af BUN/Creatinine Ratio Glucose Hemoglobin A1c Lactic Acid Calcium Magnesium Total Bilirubin Direct Bilirubin AST ALT Alkaline Phosphatase Total Creatine Kinase CK Isoenzymes CK-MM (CK-3) CK-MB (CK-2) CK-BB (CK-1) Troponin I Total Protein Albumin Globulin Triglycerides TSH Urine Color Yellow Urine Clarity Sl. Cloudy Urine pH 5.0 Ur Specific [place] 1.020 Urine Protein 100 H Urine Glucose (UA) 100 H Urine Ketones Negative Urine Occult Blood 250 H Urine Nitrite Negative Urine Bilirubin Negative Urine Urobilinogen Normal Ur Leukocyte Esterase 100 H Urine RBC 0-5 SEEN Urine WBC 5-10 SEEN Ur Squamous Epith Cells 0-5 SEEN Amorphous Sediment 1+ Urine Bacteria RARE Urine Mucus 1+ Random Vancomycin Urine Opiates Screen POSITIVE H Urine Methadone Screen NEGATIVE Ur Barbiturates Screen NEGATIVE Ur Phencyclidine Scrn NEGATIVE Ur Amphetamines Screen NEGATIVE U Methamphetamin-MDMA NEGATIVE U Benzodiazepines Scrn POSITIVE H Urine Cocaine Screen NEGATIVE U Cannabinoids Screen NEGATIVE Ur Drug Screen Comment Acetone Level MRSA (PCR) POC Glucose 01/17/18 01/17/18 01/17/18 01:19 02:00 02:00 WBC Corrected WBC RBC Hgb Hct MCV MCH MCHC RDW RDW Differential Plt Count MPV Immature Gran % (Auto) Neut % (Auto) Lymph % (Auto) [place] % (Auto) Eos % (Auto) Baso % (Auto) Absolute Neuts (auto) Absolute Lymphs (auto) Total Counted Neutrophils % (Manual) Band Neutrophils % Lymphocytes % (Manual) Monocytes % (Manual) Eosinophils % (Manual) Basophils % (Manual) Metamyelocytes % Myelocytes % Promyelocytes % Blast Cells % Plasma Cell % (Manual) Other Cells % Nucleated RBCs/100 WBC Differential Comment Diff Path Review Hypersegmented Neuts Atypical Lymphocytes Reactive Lymphocytes Smudge Cells Toxic Granulation Dohle Bodies Ariela Rods Platelet Estimate Plt Morphology Comment RBC Morphology Polychromasia Hypochromasia Poikilocytosis Basophilic Stippling Anisocytosis Microcytosis Macrocytosis Spherocytes Sickle Cells Target Cells Tear Drop Cells Ovalocytes Stomatocytes Joseph-Baird Bodies [place] Cells Bite Cells Acanthocytes (Spur) Rouleaux Schistocytes Specimen Type Sample Site pH Bicarbonate Actual POC Total CO2 Base Excess O2 Saturation O2 % ABG pCO2 ABG pO2 Aroldo Test Respiration Rate O2 Delivery Device Vent Mode Tidal Volume POC PEEP Blood Gas Notified Whom Sodium 135 L Potassium 4.5 Chloride 106 Carbon Dioxide 19.0 L Anion Gap 10 BUN 48 H Creatinine 4.81 H Estim Creat Clear Calc 15.06 Est GFR (MDRD) Af Amer 13 L Est GFR (MDRD) Non-Af 10 L BUN/Creatinine Ratio 10.0 Glucose 236 H Hemoglobin A1c Lactic Acid Calcium 7.7 L Magnesium Total Bilirubin Direct Bilirubin AST ALT Alkaline Phosphatase Total Creatine Kinase CK Isoenzymes CK-MM (CK-3) CK-MB (CK-2) CK-BB (CK-1) Troponin I < 0.015 Total Protein Albumin Globulin Triglycerides 180 TSH Urine Color Urine Clarity Urine pH Ur Specific [place] Urine Protein Urine Glucose (UA) Urine Ketones Urine Occult Blood Urine Nitrite Urine Bilirubin Urine Urobilinogen Ur Leukocyte Esterase Urine RBC Urine WBC Ur Squamous Epith Cells Amorphous Sediment Urine Bacteria Urine Mucus Random Vancomycin Urine Opiates Screen Urine Methadone Screen Ur Barbiturates Screen Ur Phencyclidine Scrn Ur Amphetamines Screen U Methamphetamin-MDMA U Benzodiazepines Scrn Urine Cocaine Screen U Cannabinoids Screen Ur Drug Screen Comment Acetone Level MRSA (PCR) POC Glucose 257 H 01/17/18 01/17/18 01/17/18 04:25 04:25 04:25 WBC Cancelled Corrected WBC Cancelled RBC Cancelled Hgb Cancelled Hct Cancelled MCV Cancelled MCH Cancelled MCHC Cancelled RDW Cancelled RDW Differential Cancelled Plt Count Cancelled MPV Cancelled Immature Gran % (Auto) Cancelled Neut % (Auto) Cancelled Lymph % (Auto) Cancelled [place] % (Auto) Cancelled Eos % (Auto) Cancelled Baso % (Auto) Cancelled Absolute Neuts (auto) Cancelled Absolute Lymphs (auto) Cancelled Total Counted Cancelled Neutrophils % (Manual) Cancelled Band Neutrophils % Cancelled Lymphocytes % (Manual) Cancelled Monocytes % (Manual) Cancelled Eosinophils % (Manual) Cancelled Basophils % (Manual) Cancelled Metamyelocytes % Cancelled Myelocytes % Cancelled Promyelocytes % Cancelled Blast Cells % Cancelled Plasma Cell % (Manual) Cancelled Other Cells % Cancelled Nucleated RBCs/100 WBC Cancelled Differential Comment Cancelled Diff Path Review Cancelled Hypersegmented Neuts Cancelled Atypical Lymphocytes Cancelled Reactive Lymphocytes Cancelled Smudge Cells Cancelled Toxic Granulation Cancelled Dohle Bodies Cancelled Ariela Rods Cancelled Platelet Estimate Cancelled Plt Morphology Comment Cancelled RBC Morphology Cancelled Polychromasia Cancelled Hypochromasia Cancelled Poikilocytosis Cancelled Basophilic Stippling Cancelled Anisocytosis Cancelled Microcytosis Cancelled Macrocytosis Cancelled Spherocytes Cancelled Sickle Cells Cancelled Target Cells Cancelled Tear Drop Cells Cancelled Ovalocytes Cancelled Stomatocytes Cancelled Joseph-Baird Bodies Cancelled [place] Cells Cancelled Bite Cells Cancelled Acanthocytes (Spur) Cancelled Rouleaux Cancelled Schistocytes Cancelled Specimen Type Sample Site pH Bicarbonate Actual POC Total CO2 Base Excess O2 Saturation O2 % ABG pCO2 ABG pO2 Aroldo Test Respiration Rate O2 Delivery Device Vent Mode Tidal Volume POC PEEP Blood Gas Notified Whom Sodium 137 Potassium 4.6 Chloride 106 Carbon Dioxide 18.0 L Anion Gap 13 BUN 47 H Creatinine 4.74 H Estim Creat Clear Calc 15.28 Est GFR (MDRD) Af Amer 13 L Est GFR (MDRD) Non-Af 11 L BUN/Creatinine Ratio 9.9 L Glucose 234 H Hemoglobin A1c Lactic Acid Calcium 7.6 L Magnesium Total Bilirubin Direct Bilirubin AST ALT Alkaline Phosphatase Total Creatine Kinase CK Isoenzymes CK-MM (CK-3) CK-MB (CK-2) CK-BB (CK-1) Troponin I < 0.015 Total Protein Albumin Globulin Triglycerides TSH Urine Color Urine Clarity Urine pH Ur Specific [place] Urine Protein Urine Glucose (UA) Urine Ketones Urine Occult Blood Urine Nitrite Urine Bilirubin Urine Urobilinogen Ur Leukocyte Esterase Urine RBC Urine WBC Ur Squamous Epith Cells Amorphous Sediment Urine Bacteria Urine Mucus Random Vancomycin Urine Opiates Screen Urine Methadone Screen Ur Barbiturates Screen Ur Phencyclidine Scrn Ur Amphetamines Screen U Methamphetamin-MDMA U Benzodiazepines Scrn Urine Cocaine Screen U Cannabinoids Screen Ur Drug Screen Comment Acetone Level MRSA (PCR) POC Glucose 01/17/18 01/17/18 01/17/18 05:00 07:42 11:19 WBC 13.5 H Corrected WBC RBC 3.52 L Hgb 11.6 L Hct 33.8 L MCV 96.0 MCH 33.0 H MCHC 34.3 RDW 12.4 RDW Differential 43.1 Plt Count 245 MPV 9.6 Immature Gran % (Auto) 0.200 Neut % (Auto) 73.7 H Lymph % (Auto) 16.7 L [place] % (Auto) 8.6 Eos % (Auto) 0.7 Baso % (Auto) 0.1 Absolute Neuts (auto) 9.9 H Absolute Lymphs (auto) 2.25 Total Counted Not Reportable Neutrophils % (Manual) Band Neutrophils % Lymphocytes % (Manual) Monocytes % (Manual) Eosinophils % (Manual) Basophils % (Manual) Metamyelocytes % Myelocytes % Promyelocytes % Blast Cells % Plasma Cell % (Manual) Other Cells % Nucleated RBCs/100 WBC Differential Comment Diff Path Review Hypersegmented Neuts Atypical Lymphocytes Reactive Lymphocytes Smudge Cells Toxic Granulation Dohle Bodies Ariela Rods Platelet Estimate Plt Morphology Comment RBC Morphology Polychromasia Hypochromasia Poikilocytosis Basophilic Stippling Anisocytosis Microcytosis Macrocytosis Spherocytes Sickle Cells Target Cells Tear Drop Cells Ovalocytes Stomatocytes Joseph-Baird Bodies [place] Cells Bite Cells Acanthocytes (Spur) Rouleaux Schistocytes Specimen Type Sample Site pH Bicarbonate Actual POC Total CO2 Base Excess O2 Saturation O2 % ABG pCO2 ABG pO2 Aroldo Test Respiration Rate O2 Delivery Device Vent Mode Tidal Volume POC PEEP Blood Gas Notified Whom Sodium Potassium Chloride Carbon Dioxide Anion Gap BUN Creatinine Estim Creat Clear Calc Est GFR (MDRD) Af Amer Est GFR (MDRD) Non-Af BUN/Creatinine Ratio Glucose Hemoglobin A1c Lactic Acid Calcium Magnesium Total Bilirubin Direct Bilirubin AST ALT Alkaline Phosphatase Total Creatine Kinase CK Isoenzymes CK-MM (CK-3) CK-MB (CK-2) CK-BB (CK-1) Troponin I Total Protein Albumin Globulin Triglycerides TSH 1.55 Urine Color Urine Clarity Urine pH Ur Specific [place] Urine Protein Urine Glucose (UA) Urine Ketones Urine Occult Blood Urine Nitrite Urine Bilirubin Urine Urobilinogen Ur Leukocyte Esterase Urine RBC Urine WBC Ur Squamous Epith Cells Amorphous Sediment Urine Bacteria Urine Mucus Random Vancomycin Urine Opiates Screen Urine Methadone Screen Ur Barbiturates Screen Ur Phencyclidine Scrn Ur Amphetamines Screen U Methamphetamin-MDMA U Benzodiazepines Scrn Urine Cocaine Screen U Cannabinoids Screen Ur Drug Screen Comment Acetone Level MRSA (PCR) POC Glucose 251 H 01/17/18 01/17/18 01/18/18 17:04 23:49 05:40 WBC Corrected WBC RBC Hgb Hct MCV MCH MCHC RDW RDW Differential Plt Count MPV Immature Gran % (Auto) Neut % (Auto) Lymph % (Auto) [place] % (Auto) Eos % (Auto) Baso % (Auto) Absolute Neuts (auto) Absolute Lymphs (auto) Total Counted Neutrophils % (Manual) Band Neutrophils % Lymphocytes % (Manual) Monocytes % (Manual) Eosinophils % (Manual) Basophils % (Manual) Metamyelocytes % Myelocytes % Promyelocytes % Blast Cells % Plasma Cell % (Manual) Other Cells % Nucleated RBCs/100 WBC Differential Comment Diff Path Review Hypersegmented Neuts Atypical Lymphocytes Reactive Lymphocytes Smudge Cells Toxic Granulation Dohle Bodies Ariela Rods Platelet Estimate Plt Morphology Comment RBC Morphology Polychromasia Hypochromasia Poikilocytosis Basophilic Stippling Anisocytosis Microcytosis Macrocytosis Spherocytes Sickle Cells Target Cells Tear Drop Cells Ovalocytes Stomatocytes Joseph-Baird Bodies [place] Cells Bite Cells Acanthocytes (Spur) Rouleaux Schistocytes Specimen Type Sample Site pH Bicarbonate Actual POC Total CO2 Base Excess O2 Saturation O2 % ABG pCO2 ABG pO2 Aroldo Test Respiration Rate O2 Delivery Device Vent Mode Tidal Volume POC PEEP Blood Gas Notified Whom Sodium Potassium Chloride Carbon Dioxide Anion Gap BUN Creatinine Estim Creat Clear Calc Est GFR (MDRD) Af Amer Est GFR (MDRD) Non-Af BUN/Creatinine Ratio Glucose Hemoglobin A1c Lactic Acid Calcium Magnesium Total Bilirubin Direct Bilirubin AST ALT Alkaline Phosphatase Total Creatine Kinase CK Isoenzymes CK-MM (CK-3) CK-MB (CK-2) CK-BB (CK-1) Troponin I Total Protein Albumin Globulin Triglycerides TSH Urine Color Urine Clarity Urine pH Ur Specific [place] Urine Protein Urine Glucose (UA) Urine Ketones Urine Occult Blood Urine Nitrite Urine Bilirubin Urine Urobilinogen Ur Leukocyte Esterase Urine RBC Urine WBC Ur Squamous Epith Cells Amorphous Sediment Urine Bacteria Urine Mucus Random Vancomycin Urine Opiates Screen Urine Methadone Screen Ur Barbiturates Screen Ur Phencyclidine Scrn Ur Amphetamines Screen U Methamphetamin-MDMA U Benzodiazepines Scrn Urine Cocaine Screen U Cannabinoids Screen Ur Drug Screen Comment Acetone Level MRSA (PCR) POC Glucose 243 H 243 H 260 H 01/18/18 06:00 WBC Corrected WBC RBC Hgb Hct MCV MCH MCHC RDW RDW Differential Plt Count MPV Immature Gran % (Auto) Neut % (Auto) Lymph % (Auto) [place] % (Auto) Eos % (Auto) Baso % (Auto) Absolute Neuts (auto) Absolute Lymphs (auto) Total Counted Neutrophils % (Manual) Band Neutrophils % Lymphocytes % (Manual) Monocytes % (Manual) Eosinophils % (Manual) Basophils % (Manual) Metamyelocytes % Myelocytes % Promyelocytes % Blast Cells % Plasma Cell % (Manual) Other Cells % Nucleated RBCs/100 WBC Differential Comment Diff Path Review Hypersegmented Neuts Atypical Lymphocytes Reactive Lymphocytes Smudge Cells Toxic Granulation Dohle Bodies Ariela Rods Platelet Estimate Plt Morphology Comment RBC Morphology Polychromasia Hypochromasia Poikilocytosis Basophilic Stippling Anisocytosis Microcytosis Macrocytosis Spherocytes Sickle Cells Target Cells Tear Drop Cells Ovalocytes Stomatocytes Joseph-Baird Bodies [place] Cells Bite Cells Acanthocytes (Spur) Rouleaux Schistocytes Specimen Type Sample Site pH Bicarbonate Actual POC Total CO2 Base Excess O2 Saturation O2 % ABG pCO2 ABG pO2 Aroldo Test Respiration Rate O2 Delivery Device Vent Mode Tidal Volume POC PEEP Blood Gas Notified Whom Sodium Potassium Chloride Carbon Dioxide Anion Gap BUN Creatinine Estim Creat Clear Calc Est GFR (MDRD) Af Amer Est GFR (MDRD) Non-Af BUN/Creatinine Ratio Glucose Hemoglobin A1c Lactic Acid Calcium Magnesium Total Bilirubin Direct Bilirubin AST ALT Alkaline Phosphatase Total Creatine Kinase CK Isoenzymes CK-MM (CK-3) CK-MB (CK-2) CK-BB (CK-1) Troponin I Total Protein Albumin Globulin Triglycerides TSH Urine Color Urine Clarity Urine pH Ur Specific [place] Urine Protein Urine Glucose (UA) Urine Ketones Urine Occult Blood Urine Nitrite Urine Bilirubin Urine Urobilinogen Ur Leukocyte Esterase Urine RBC Urine WBC Ur Squamous Epith Cells Amorphous Sediment Urine Bacteria Urine Mucus Random Vancomycin 12.3 Urine Opiates Screen Urine Methadone Screen Ur Barbiturates Screen Ur Phencyclidine Scrn Ur Amphetamines Screen U Methamphetamin-MDMA U Benzodiazepines Scrn Urine Cocaine Screen U Cannabinoids Screen Ur Drug Screen Comment Acetone Level MRSA (PCR) POC Glucose Microbiology 01/17/18 14:21 Sputum, Induced/Lukens Gram Stain - Preliminary Clinical Impression(s) from Imaging Studies Chest X-Ray 01/16/18 22:20 IMPRESSION: Satisfactory position of the support lines and tubes. Bibasilar atelectasis. Otherwise, clear lungs. Electronically Signed: Kwan Westbrook at 22:50 EDT Tel , Service support , KUB X-Ray 01/17/18 02:35 IMPRESSION: Appropriate positioning of orogastric tube. Electronically Signed: Brian Marvin MD at 3:19 EDT Tel , Service support , Renal Ultrasound 01/17/18 07:58 IMPRESSION: Both kidneys are enlarged. No hydronephrosis. Hernandez catheter in the bladder. Electronically Signed: Vito Katz DO at 10:05 EDT , Service support , Medical Necessity - Tobacco Use Smoking Status: Former smoker Assessment/Plan All Active Problems (Last Updated 10/15/17 @ 13:10 by Michelle Flores) Acute respiratory failure (Acute) ARF (acute renal failure) (Acute) Hyperosmolarity due to secondary diabetes (Acute) Depression (Acute) Diabetes mellitus (Acute) RECOMMENDATIONS: 1. Proceed with a trial of extubation. 2. Once extubated, wean supplemental oxygen to maintain saturations at or above 90%. 3. Perform bedside swallow evaluation and advance diet accordingly. 4. Obtain repeat BMP this morning. 5. Once the patient is able to tolerate p.o. intake, supplemental IV fluids can be discontinued. 6. Continue antibiotics. If cultures are negative tomorrow, antibiotics will be discontinued completely. 7. Continue appropriate ICU prophylaxis IMPRESSIONS: 1. Acute respiratory failure The patient was initially intubated at [facility] emergency department over concerns for airway protection in the setting of #2. The patient's encephalopathy has resolved and she passed her spontaneous breathing trial this morning. Therefore, plans will include extubation. Once extubated, supplemental oxygen can be weaned and a bedside swallow evaluation completed. Her diet can then be advanced accordingly. Once the patient is tolerating p.o. intake, supplemental IV fluids can be discontinued. Empiric antibiotics will be continued for an additional 24 hours, pending finalized culture results. If sputum culture is negative, antibiotics will be discontinued tomorrow. 2. Encephalopathy, likely secondary to polypharmacy with questionable overdose versus metabolic in etiology Resolved at this time. The patient is on a number of sedating medications with high abuse potential in her home environment. Her encephalopathy noted on presentation may be secondary to polypharmacy with questionable overdose. The patient would likely benefit from behavioral health evaluation, once medically stabilized. 3. Acute kidney injury/non-gap metabolic acidosis Improving. Likely prerenal in etiology due to downtime, coupled with likely ATN. The patient's supplemental IV fluids will be continued until she is able to tolerate p.o. intake. Anticipate improvement in the patient's metabolic derangements with volume expansion. Renal ultrasound revealed enlargement of the kidneys without hydronephrosis noted. Continue to monitor urine output accordingly. No indication at the present time for renal replacement therapy. 4. Personal history of chronic pain syndrome/diabetes/depression/hypothyroidism Complicates care, management, recovery and prognosis. Continue sliding scale insulin coverage for now. Continue Synthroid. We will need to clarify the patient's baseline outpatient psych medications. TIME: 38 minutes of critical care time, independent of procedures, was spent addressing the patient's acute respiratory failure, encephalopathy, acute kidney injury, metabolic acidosis, chronic pain syndrome, review of all data and collaboration with the care team. ([id number]) Code Visit 9xxxx: [id number] Critical care first hour
--- NOTE | 2018-01-18 07:24 | PN_ITS ---
Patient Problems: Active and Suspected Problems (Last Updated 10/15/17 @ 13:10 by Michelle Flores) Acute respiratory failure (Acute) ARF (acute renal failure) (Acute) Hyperosmolarity due to secondary diabetes (Acute) Subjective: Patient was seen and examined. Extubated this morning successfully. Remains on 4-5 L of oxygen. Patient has no recollection of what happened prior to admission. Denies any pain anywhere. Denies any fever or chills. She is oriented to self only but not to place on time, keeps asking where she is. Cannot recollect any history of rash cannot tell me how long she has had the redness on her forearms. Vitals/I&O's: Vital Signs Temp Pulse Resp BP Pulse Ox 97.1 F L 116 H 17 105/92 H 92 01/18/18 04:00 01/18/18 07:00 01/18/18 07:00 01/18/18 07:00 01/18/18 07:00 Oxygen Flow Rate (L/min) 5 Oxygen Delivery Method Nasal Cannula Weight: 168.8 kg Body Mass Index (BMI) 56.0 Finger Stick Blood Glucose 195 Intake and Output for Last 24 Hours 01/16/18 01/17/18 01/18/18 23:59 23:59 23:59 Intake Total 6268.9 / 6268.9 2879.5 / 2879.5 Output Total 3775 / 3775 3700 / 3700 Balance 2493.9 / 2493.9 -820.5 / -820.5 General: Alert, Cooperative, - - Oriented to self, comfortable, on intranasal cannula oxygen, obese HEENT: Atraumatic, PERRLA, EOMI, Normocephalic Oral: Moist Mucosa Neck: Supple Lungs: Normal air movement, Diminished Cardiovascular: Regular rate, Regular Rhythm, Normal S1, Normal S2, No murmurs Abdomen: Bowel Sounds Present, Soft, Non Tender, Non-Distended, No Hepato- splenomegaly, Obese Extremities: No edema, - - Erythema of both upper extremities more on the left dorsal forearms with differential warmth Skin: No rashes Musculoskeletal: No Tenderness to Palpation of Joints or Extremities Lymphatic: No Cervical, Supraclavicular, or Inguinal Adenopathy Neurological: Cranial nerves II-XII grossly intact, Neuro grossly intact Psych/Mental Status: Normal Affect, Appropriate Microbiology Past 72 Hours 01/17/18 14:21 Sputum, Induced/Lukens Gram Stain - Preliminary Laboratory Results 01/16/18 23:20: Urine Opiates Screen POSITIVE H, Urine Methadone Screen NEGATIVE , Ur Barbiturates Screen NEGATIVE, Ur Phencyclidine Scrn NEGATIVE, Ur Amphetamines Screen NEGATIVE, U Methamphetamin-MDMA NEGATIVE, U Benzodiazepines Scrn POSITIVE H, Urine Cocaine Screen NEGATIVE, U Cannabinoids Screen NEGATIVE 01/17/18 07:42: TSH 1.55 01/17/18 11:19: POC Glucose 251 H 01/17/18 17:04: POC Glucose 243 H 01/17/18 23:49: POC Glucose 243 H 01/18/18 05:40: POC Glucose 260 H 01/18/18 06:00: Random Vancomycin 12.3 Current Medications Albuterol Sulfate (Ventolin Aerosols) 2.5 mg INHALATION Q4H.RT [facility] Last Admin: 01/18/18 06:28 Dose: 2.5 mg Chlorhexidine Gluconate () 15 ml PO BID [facility] Last Admin: 01/17/18 21:26 Dose: 15 ml Chlorhexidine Gluconate () 1 each TOPICAL DAILY [facility] Last Admin: 01/17/18 21:28 Dose: 1 each Dextrose (D50w Syringe) 0 gm IV X1 PRN; Protocol PRN Reason: BG < 70 Heparin Sodium (Porcine) (Heparin Na) 5,000 unit SC Q8 [facility] Last Admin: 01/18/18 05:43 Dose: 5,000 units Pantoprazole Sodium 40 mg/ (Sodium Chloride) 110 mls @ 330 mls/hr IV Q24 [facility] Last Admin: 01/17/18 09:25 Dose: 330 mls/hr Sodium Chloride () 250 mls @ 15 mls/hr IV .[id number] PRN PRN Reason: SALINE FLUSH Fentanyl () 100 mls @ 5 mls/hr IV .Q20H [facility] Last Admin: 01/17/18 20:09 Dose: 5 mls/hr Lactated Ringer's () 1,000 mls @ 150 mls/hr IV .Q6H40M [facility] Last Admin: 01/18/18 05:42 Dose: 150 mls/hr Ampicillin Sodium/Sulbactam Sodium 1,500 mg/ Sodium Chloride 50 mls @ 100 mls/ hr IV Q12H [facility] Last Admin: 01/17/18 20:11 Dose: 100 mls/hr Propofol (Diprivan) 1,000 mg in 100 mls @ 5.019 mls/hr CONT INF .Q12H [facility]; 5 MCG/KG/MIN PRN Reason: Protocol Last Admin: 01/18/18 01:39 Dose: 5.019 mls/hr Enteral Nutritional Formula (Glucerna 1.5) 1,000 mls @ 50 mls/hr GT .Q20H [facility] Last Admin: 01/17/18 17:05 Dose: 50 mls/hr Insulin Human Lispro (Humalog Kwikpen (Bkc)) 0 unit SC Q6 [facility] PRN Reason: Protocol Last Admin: 01/18/18 05:44 Dose: 2 units Levothyroxine Sodium (Synthroid) 300 mcg GT DAILY@0600 [facility] Last Admin: 01/18/18 05:42 Dose: 300 mcg Magnesium Hydroxide (Milk Of Magnesia) 30 ml PO DAILY PRN PRN PRN Reason: Constipation Nystatin (Mycostatin Powder) 1 applic TOPICAL BID [facility] PRN Reason: Protocol Last Admin: 01/17/18 21:27 Dose: 1 applicatio Sodium Chloride () 5 - 30 ml IV UD PRN PRN Reason: SALINE FLUSH Last Admin: 01/17/18 04:58 Dose: 30 ml Sodium Chloride () 10 - 40 ml IV UD PRN PRN Reason: MULTILUMEN/HICMAN CATH FLUSH Medical Necessity - Tobacco Use Smoking Status: Former smoker Assessment/Plan All Active Problems (Last Updated 10/15/17 @ 13:10 by Michelle Flores) Acute respiratory failure (Acute) ARF (acute renal failure) (Acute) Hyperosmolarity due to secondary diabetes (Acute) Depression (Acute) Diabetes mellitus (Acute) 42-year-old female with past medical history of hypertension, DM, morbid obesity , chronic pain syndrome, admitted directly from [facility] with acute respiratory failure. Patient is reportedly noncompliant with her insulin and was found lying down by her family. 1. Acute hypoxic respiratory failure, resolved, likely multifactorial - Hyperglycemia, medication side-effects as patient is on multiple central acting medications, chest x-ray showed bibasilar atelectasis but otherwise clinically clear. Has been extubated, on 4-5 L of oxygen, Plan: will continue to wean off oxygen and encourage use of incentive spirometer. 2. Hyperglycemia, no DKA or HHS, in a known diabetic, HbA1c is 9.1, and tells me she is on insulin but her home med list does not include insulin includes only metformin, history of noncompliance, Plan: will give Levemir 10 units ?1 today and start 10 units nightly, ADA diet, insulin sliding scale before meals at bedtime and continue with Accu-Cheks. Pharmacy to assist with medication reconciliation. 3. Acute kidney injury likely secondary to dehydration from osmotic diuresis versus rhabdomyolysis, her creatinine was 1.47 in November 2017, creatinine is slightly better, at 3.96 from 4.74, ultrasound of the kidney shows enlarged kidneys but no hydronephrosis Plan: will continue on IV fluids, repeat CPK is pending, will get nephrology consult to comanage and establish with patient so she can be followed up in the outpatient 4. Acute metabolic encephalopathy, present on admission, likely secondary to #1 , 2, 3, will continue to monitor 5. Rhabdomyolysis, mild, continue IV fluids, repeat labs in a.m. 6. Non-gap metabolic acidosis secondary to BAMBI, resolved, will continue with IV fluids. 7. Hypertension, controlled, was on lisinopril 10 mg at home, will continue to hold off lisinopril in the light of acute kidney injury, will add hydralazine as needed if needed 8. Hypothyroidism, on levothyroxine 9. Depression, home medications on hold for now, 10. Polypharmacy: Pharmacy to help with medication reconciliation 11. Morbid obesity, BMI 56.1 11. DVT prophylaxis with heparin subcu 13. Disposition: Possible transfer out of ICU as the day progresses if patient continues to improve. Eventual discharge home in 24-48 hours depending on patient's general improvement. Code Visit Inpatient E&M: 48954 Subs Hosp L2
[2018-01-18 07:43] LABS: Anion Gap 9 (5-15); BUN 45 mg/dL (7-18); BUN/Creat Ratio 11.4 RATIO (10-20); Calcium,Total 8.5 mg/dL (8.5-10.1); Chloride 108 mmol/L (98-107); Creatinine, Serum 3.96 mg/dL (0.55-1.02); EST Glomerular Filtration Rate 13 mL/min (>60); Est Glom Filt Rate - Afr Amer 16 mL/min (>60); Estimated Creatinine Clearance 18.29 ml/min; Glucose 279 mg/dL (74-106); Sodium Level 139 mmol/L (136-145)
[2018-01-18] MEDS: Nystatin Powder 15gm Bottle 1 APPLIC TOPICAL ×2 (08:33→21:59)
[2018-01-18 09:11] LABS: CPK Total, Creatine Kinase 2581 U/L (26-192)
[2018-01-18 11:30] LABS: Bedside Glucose 275 mg/dL (70-110)
[2018-01-18] MEDS: Insulin Lispro 100 UNIT/ML INSULN.PEN SQ ×3 (11:33→21:58)
[2018-01-18] MEDS: LORazepam 1 MG Tablet PO (14:47)
[2018-01-18 17:11] LABS: Bedside Glucose 264 mg/dL (70-110)
[2018-01-18] MEDS: Amitriptyline 25 MG Tablet 150 MG PO (21:57)
[2018-01-18] MEDS: Venlafaxine XR 150 MG Capsule PO (21:58)
[2018-01-18 22:11] LABS: Bedside Glucose 237 mg/dL (70-110)
[2018-01-19] VITALS: BP 111/71; PULSE 99; RESP 12; TEMP 36.1; O2SAT 96
[2018-01-19] MEDS: Lactated Ringers 1,000 ML 150 ML IV (00:27)
[2018-01-19 01:00] VITALS: BP 123/80; PULSE 95; RESP 12; O2SAT 98
[2018-01-19 02:00] VITALS: BP 128/75; PULSE 98; RESP 12; O2SAT 98
[2018-01-19 03:00] VITALS: BP 147/96; PULSE 112; RESP 14; O2SAT 97
[2018-01-19 03:34] VITALS: PULSE 108
[2018-01-22 11:48] LABS: Glucose 196 mg/dL (74-106)
[2018-01-22 16:41] LABS: Absolute Lymphocyte Count 2.49 X10^3/ul (0.83-4.51); Absolute Neutrophil Count 5.3 X10^3/uL (2.0-7.7); Basophil% 0.5 % (0-1); Eosinophils% 2.4 % (0-5); Hematocrit 34.2 % (37-47); Hemoglobin 11.4 g/dl (12.0-15.0); Lymphocyte # 2.49 X10^3/ul (4.0); Lymphocyte % 28.1 % (19-41); Mean Corp Hgb Conc 33.3 g/gl (32-36); Mean Corpuscular Hgb 33.2 pg (27.0-32.0); Mean Corpuscular Volume 99.7 fL (81-99); Mean Platelet Vol. 9.8 fl (6.2-12.0); Monocyte# 0.82 X10^3/uL; Monocyte% 9.2 % (0-10); Neutrophil # 5.28 X10^3/uL (2.7-7.7); Neutrophil % 59.5 % (47-70); POSITIVE COUNT NO; POSITIVE DIFFERENTIAL NO; POSITIVE MORPHOLOGY NO; Platelet Count 233 K/mm3 (150-450); RBC Distribution Width CV 12.6 % (11.6-14.6); RBC Distribution Width SD 44.3 fl (35.1-43.9); Red Blood Count 3.43 M/mm3 (4.2-5.4); White Blood Count 8.9 K/mm3 (4.4-11.0)
[2018-01-22 16:42] LABS: Basophil# 0.04 X10^3/uL; Eosinophil# 0.21 X10^3/uL
[2018-01-24 03:57] LABS: Anion Gap 11 (5-15); BUN 34 mg/dL (7-18); BUN/Creat Ratio 18.1 RATIO (10-20); CPK Total, Creatine Kinase 987 U/L (26-192); Calcium,Total 8.8 mg/dL (8.5-10.1); Chloride 104 mmol/L (98-107); Creatinine, Serum 1.88 mg/dL (0.55-1.02); EST Glomerular Filtration Rate 31 mL/min (>60); Est Glom Filt Rate - Afr Amer 38 mL/min (>60); Estimated Creatinine Clearance 38.52 ml/min; Glucose 264 mg/dL (74-106); Potassium 3.9 mmol/L (3.5-5.1); Sodium Level 140 mmol/L (136-145)
--- NOTE | 2018-01-27 10:40 | PCM.DC.SUM ---
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 Patient had been laying on her floor of her home for approximately a day, family thought that she was sleeping and did not try to awaken her. Evaluation at [facility] ICU revealed abnormal labs indicating a hyperosmolar nonketotic hyperglycemia and acute kidney injury. Patient was seen by critical care who managed her vent and most of her medications in the ICU. For a brief period of time, patient was placed on IV antibiotics although there is no definite pneumonia detected. Patient was extubated, she was seen in consultation by crisis to set her up for outpatient psych counseling. Patient was kept off her home pain medications during her hospital stay. Patient's kidney functions trended down toward normal, sputum culture grew out MRSA but this was felt to be secondary to colonization and this was not treated. On 01/20/15, patient was seen and examined and felt to be in stable condition for discharge home Home Medications: Medications to take at Discharge Levothyroxine Sodium [Synthroid] 300 mcg PO DAILY 10/16/15 Omeprazole [Prilosec] 40 mg PO DAILY 10/16/15 Topiramate [Topamax] 100 mg PO BID 10/16/15 Venlafaxine XR [Effexor Xr] 150 mg PO BID 10/16/15 Zolpidem Tartrate [Ambien] 10 mg PO QHS 10/16/15 Morphine Sulfate [Morphine Sulfate ER] 30 mg PO TID 11/07/15 Oxycodone HCl/Acetaminophen [Percocet 10-325 mg Tablet] 1 tab PO Q6H PRN PRN 11/07/15 amitriptyline 100 mg tablet 150 mg PO QHS 10/15/17 blood sugar diagnostic strips See Dose Instructions .ROUTE .MEDSUPPLY #100 ea 10/15/17 blood-glucose meter kit See Dose Instructions .ROUTE .MEDSUPPLY #1 ea 10/15/17 lancets 28 gauge See Dose Instructions .ROUTE .MEDSUPPLY #100 ea 10/15/17 lidocaine 5 % topical ointment 1 applic TOPICAL BID-QID PRN 10/15/17 lisinopril 10 mg tablet 10 mg PO QDAY 10/15/17 metformin ER 1,000 mg 24 hr tablet,extended release 1,000 mg PO BID tab 10/15/17 oxybutynin chloride 5 mg tablet 5 mg PO TID 10/15/17 Acyclovir [Acyclovir] 1 5X/DAY 01/18/18 Furosemide [Lasix] 20 mg PO DAILY 01/18/18 Lorazepam [Ativan] 1 mg PO BID PRN 01/18/18 Naproxen Sodium [Naproxen Sodium Cr] 500 mg PO BID 01/18/18 Tizanidine HCl [Zanaflex] 4 mg TID 01/18/18 Primary Care Physician: Devonte Stevenson Jr., MD [Primary Care Provider] - Disposition: Home Minutes spent on discharge:: 35 Patient Condition:: Stable Medical Necessity - Tobacco Use Smoking Status: Former smoker Meaningful Use Info Meaningful Use Diagnoses (Choose all that apply): None applicable Code Visit Inpatient E&M: 65150 Disch Hosp
--- NOTE | 2018-01-27 10:45 | DS.PCM_ITS ---
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 from [place] emergency room after being found down at home and taken to [facility] for evaluation. Patient had been laying on her floor of her home for approximately a day, family thought that she was sleeping and did not try to awaken her. Evaluation at [facility] ICU revealed abnormal labs indicating a hyperosmolar nonketotic hyperglycemia and acute kidney injury. Patient was seen by critical care who managed her vent and most of her medications in the ICU. For a brief period of time, patient was placed on IV antibiotics although there is no definite pneumonia detected. Patient was extubated, she was seen in consultation by crisis to set her up for outpatient psych counseling. Patient was kept off her home pain medications during her hospital stay. Patient's kidney functions trended down toward normal , sputum culture grew out MRSA but this was felt to be secondary to colonization and this was not treated. On 01/20/15, patient was seen and examined and felt to be in stable condition for discharge home Home Medications: Medications to take at Discharge Levothyroxine Sodium [Synthroid] 300 mcg PO DAILY 10/16/15 Omeprazole [Prilosec] 40 mg PO DAILY 10/16/15 Topiramate [Topamax] 100 mg PO BID 10/16/15 Venlafaxine XR [Effexor Xr] 150 mg PO BID 10/16/15 Zolpidem Tartrate [Ambien] 10 mg PO QHS 10/16/15 Morphine Sulfate [Morphine Sulfate ER] 30 mg PO TID 11/07/15 Oxycodone HCl/Acetaminophen [Percocet 10-325 mg Tablet] 1 tab PO Q6H PRN PRN amitriptyline 100 mg tablet 150 mg PO QHS 10/15/17 blood sugar diagnostic strips See Dose Instructions .ROUTE .MEDSUPPLY #100 ea blood-glucose meter kit See Dose Instructions .ROUTE .MEDSUPPLY #1 ea 10/15/17 lancets 28 gauge See Dose Instructions .ROUTE .MEDSUPPLY #100 ea 10/15/17 lidocaine 5 % topical ointment 1 applic TOPICAL BID-QID PRN 10/15/17 lisinopril 10 mg tablet 10 mg PO QDAY 10/15/17 metformin ER 1,000 mg 24 hr tablet,extended release 1,000 mg PO BID tab oxybutynin chloride 5 mg tablet 5 mg PO TID 10/15/17 Acyclovir [Acyclovir] 1 5X/DAY 01/18/18 Furosemide [Lasix] 20 mg PO DAILY 01/18/18 Lorazepam [Ativan] 1 mg PO BID PRN 01/18/18 Naproxen Sodium [Naproxen Sodium Cr] 500 mg PO BID 01/18/18 Tizanidine HCl [Zanaflex] 4 mg TID 01/18/18 Primary Care Physician: Devonte Stevenson Jr., MD [Primary Care Provider] - Disposition: Home Minutes spent on discharge:: 35 Patient Condition:: Stable Medical Necessity - Tobacco Use Smoking Status: Former smoker Meaningful Use Info Meaningful Use Diagnoses (Choose all that apply): None applicable Code Visit Inpatient E&M: 14648 Disch Hosp
[2018-01-27 16:39] LABS: Bedside Glucose 179 mg/dL (70-110)
[2018-01-27 16:40] LABS: Bedside Glucose 159 mg/dL (70-110)
[2018-01-27 16:42] LABS: Bedside Glucose 253 mg/dL (70-110)
[2018-01-29 10:00] LABS: Creatine Kinase MB 1 % (0-3); Creatine Kinase MM 99 % (97-100); Macro I 0 % (Not Observed); Macro II 0 % (Not Observed)
--- NOTE | 2018-01-29 11:10 | CASEMGMT ---
Social Work Note ICU Patient was seen by social media job titles this admission. Hospital downtime procedures in place during part of this stay. Handwritten social work notes completed and sent to medical records to be scanned. Patient was set up with mental health referral and primary care doctor information before leaving the hospital on 01-20-18. Today, 01-29-17, mailed to patient some community resources that were discussed during hospital stay, which this creative writer was unable to access earlier due to limited computer access. Mailed information to [address] [place], [place] [id number] as was the address given to this creative writer by patient during patient's hospital stay. No other services requested or indicated. -SARITA Mayo, MEAL ROOM HAND
[2018-01-29 12:21] LABS: Creatine Kinase BB 0 % (0); Creatine Kinase,Total,Serum 4983 U/L (24-173)
== END 2018-01-20 14:30 | disposition home or self-care (01) | DRG 475 ==
PROVIDERS: Internal Medicine Critical Care Medicine; Admitting Provider Internal Medicine; Family Provider Internal Medicine; PCP Internal Medicine; Visit Provider Internal Medicine
DX: J96.01 Acute respiratory failure with hypoxia (principal); N17.9 Acute kidney failure, unspecified; E11.00 Type 2 diabetes mellitus with hyperosmolarity without nonketotic hyperglycemic-hyperosmolar coma (NKHHC); E86.0 Dehydration; E87.2 Acidosis; N17.0 Acute kidney failure with tubular necrosis; G93.41 Metabolic encephalopathy; E11.65 Type 2 diabetes mellitus with hyperglycemia; Z79.84 Long term (current) use of oral hypoglycemic drugs; M62.82 Rhabdomyolysis; I10 Essential (primary) hypertension; F32.9 Major depressive disorder, single episode, unspecified; Z22.322 Carrier or suspected carrier of Methicillin resistant Staphylococcus aureus; Z87.891 Personal history of nicotine dependence; E66.01 Morbid (severe) obesity due to excess calories; Z68.43 Body mass index [BMI] 50.0-59.9, adult; G89.4 Chronic pain syndrome; Z91.14 Patient's other noncompliance with medication regimen; Z79.891 Long term (current) use of opiate analgesic; Z79.899 Other long term (current) drug therapy
CPT/HCPCS: 31720; 36600; 71045; 74018; 76770; 80048; 80076; 80202; 80307; 81001; 82009; 82550; 82552; 82803; 82947; 82962; 83036; 83605; 83735; 84443; 84478; 84484; 85025; 87040; 87070; 87077; 87086; 87186; 87205; 87641; 94002; 94003; 94640; 94660; 95831; 97162; 97165; 97802; J7030; J7040; J7120; A4216

== ENCOUNTER → 2018-03-06 08:11 | Outpatient (CLI) | payer MEDICAID, SELFPAY ==
[2018-03-06 10:34] LABS: Absolute Lymphocyte Count 4.79 X10^3/ul (0.83-4.51); Absolute Neutrophil Count 4.4 X10^3/uL (2.0-7.7); Basophil# 0.04 X10^3/uL; Basophil% 0.4 % (0-1); Eosinophil# 0.43 X10^3/uL; Eosinophils% 4.3 % (0-5); Hematocrit 41.2 % (37-47); Hemoglobin 13.8 g/dl (12.0-15.0); Lymphocyte # 4.79 X10^3/ul (4.0); Lymphocyte % 47.8 % (19-41); Mean Corp Hgb Conc 33.5 g/gl (32-36); Mean Corpuscular Hgb 32.5 pg (27.0-32.0); Mean Corpuscular Volume 97.2 fL (81-99); Mean Platelet Vol. 11.6 fl (6.2-12.0); Monocyte# 0.33 X10^3/uL; Monocyte% 3.3 % (0-10); Neutrophil # 4.43 X10^3/uL (2.7-7.7); Neutrophil % 44.1 % (47-70); Platelet Count 192 K/mm3 (150-450); RBC Distribution Width SD 45.9 fl (35.1-43.9); Red Blood Count 4.24 M/mm3 (4.2-5.4)
[2018-03-06 10:37] LABS: POSITIVE COUNT NO; POSITIVE DIFFERENTIAL NO; POSITIVE MORPHOLOGY NO
[2018-03-06 11:00] LABS: AST(SGOT) 40 U/L (15-37); Alanine Aminotransfer ALT/SGPT 38 U/L (13-56); Albumin, Serum 3.8 g/dL (3.2-5.0); Alkaline Phosphatase 54 U/L (45-117); Anion Gap 8 (5-15); BUN 15 mg/dL (7-18); BUN/Creat Ratio 8.9 RATIO (10-20); Calcium,Total 9.9 mg/dL (8.5-10.1); Chloride 97 mmol/L (98-107); Creatinine, Serum 1.69 mg/dL (0.55-1.02); EST Glomerular Filtration Rate 35 mL/min (>60); Est Glom Filt Rate - Afr Amer 42 mL/min (>60); Globulin 3.8 g/dL (2.2-4.2); Glucose 269 mg/dL (74-106); Potassium 4.2 mmol/L (3.5-5.1); Protein, Total 7.6 g/dL (6.4-8.2); Sodium Level 133 mmol/L (136-145)
== END ==
PROVIDERS: Family Provider Internal Medicine; PCP Internal Medicine; Visit Provider Internal Medicine
DX: E13.00 Other specified diabetes mellitus with hyperosmolarity without nonketotic hyperglycemic-hyperosmolar coma (NKHHC) (principal)
CPT/HCPCS: 36415; 80053; 85025

== ENCOUNTER 2018-03-22 02:41 | Inpatient (IN) | payer MEDICAID, SELFPAY ==
[2018-03-22] VITALS (11 sets, daily range): BP systolic 101–120; BP diastolic 68–72; PULSE 79–99; RESP 16–18; TEMP 36.9–37.1; O2SAT 94–98; BMI 52.4
--- NOTE | 2018-03-22 02:41 | US_ITS ---
STUDY: RENAL ULTRASOUND - COMPLETE REASON FOR EXAM: Female, 42 years old. Acute renal failure TECHNIQUE: Ultrasound evaluation of the kidneys was performed with real-time and static koch-scale imaging. COMPARISON: January 17, 2018 renal ultrasound FINDINGS: RIGHT KIDNEY: Normal location of the right kidney, which is normal in size. The right kidney measures 10.9 x 5.4 x 5.3 cm. There is a normal cortex of the right kidney. The renal cortex measures 1.2 cm. There is no right renal mass or cyst. There is a 3 mm stone in the right kidney without evidence of hydronephrosis seen on image #17. There is no right hydronephrosis. DISTAL RIGHT URETER: There is non-visualization of the distal right ureter. There is no demonstrated right ureterovesical junction calculus. There is a visualized right ureteral jet. LEFT KIDNEY: Normal location of the left kidney, which is normal in size. The left kidney measures 10.9 x 5.1 x 5.3 cm. There is a normal cortex of the left kidney. The renal cortex measures 1.6 cm. There is no left renal mass or cyst. There are no left renal calculi. There is no left hydronephrosis. DISTAL LEFT URETER: There is non-visualization of the distal left ureter. There is no demonstrated left ureterovesical junction calculus. There is a visualized left ureteral jet. BLADDER: The prevoid bladder vitamins 800.3. The empty bladder volume is 360. There is a normal wall thickness of the distended urinary bladder. There is no demonstrated mass within the urinary bladder. There are no demonstrated bladder calculi. US/Kidney and Bladder IMPRESSION: Allowing for patient's condition there is somewhat of a high bladder residual. 3 mm stone right kidney no evidence of hydronephrosis. Electronically Signed: Sharonda Nance MD at 14:01 EDT Tel , Service support ,
--- NOTE | 2018-03-22 04:27 | PCM.HP.STD ---
Problem List (1) ARF (acute renal failure) Status: Acute Qualifiers: Acute renal failure type: unspecified Qualified Code(s): N17.9 - Acute kidney failure, unspecified (2) Rhabdomyolysis Status: Acute Qualifiers: Rhabdomyolysis type: non-traumatic Qualified Code(s): M62.82 - Rhabdomyolysis (3) Migraine aura, persistent Status: Acute Qualifiers: Status migrainosus presence: with status migrainosus Intractability: intractable Qualified Code(s): G43.511 - Persistent migraine aura without cerebral infarction, intractable, with status migrainosus (4) Morbid obesity Status: Chronic (5) Seasonal allergies Status: Chronic Qualifiers: Allergic rhinitis trigger: unspecified Qualified Code(s): J30.2 - Other seasonal allergic rhinitis (6) Anxiety and depression Status: Chronic (7) GERD (gastroesophageal reflux disease) Status: Chronic Qualifiers: Esophagitis presence: esophagitis presence not specified Qualified Code(s): K21.9 - Gastro-esophageal reflux disease without esophagitis (8) Thyroid disease Status: Chronic (9) Diabetes mellitus Status: Chronic Qualifiers: Diabetes mellitus type: type 2 Diabetes mellitus intermodal customer service insulin use: with intermodal customer service use Diabetes mellitus complication status: with unspecified complications Qualified Code(s): E11.8 - Type 2 diabetes mellitus with unspecified complications; Z79.4 - MCC (current) use of insulin Comment: Discussed with patient need to check BG consistently and routinely. Showed her how to check correctly along side of finger and how to improve chances of getting blood sample on low dial. She may be a candidate for leslie system,depending on insurance. We discussed importance of routine care and following medication plan. Her level of anxiety significantly reduce by end of appointment. Instructed to check BG in pairs over the next several days . Will obtain medical records (10) Chronic pain syndrome Status: Chronic History of Present Illness Date of Admission: 03/22/18 Chief Complaint: Migraine, Confusion, Generalized Pain The patient is a 42 y/o F w/ PMHx: Diabetes mellitus type II Poorly Controlled, Chronic Pain Syndrome on Chronic Narcotic Therapy, HTN, HLD, Bipolar Disorder, Known Colonization Sputum w/ MRSA, GERD, Hypothyroidism, Migraines who presents to the [facility] as direct admission from [facility] on 03/22/18 w/ history of ongoing migraine headache frontal region with mild photophobia and phonophobia similar to her chronic migraine headaches w/ associated vertigo and worsened chronic pain including recent exacerbation of her pain associated w/ her incisional abdominal hernia secondary to helping her daughter pack boxes on day prior to current presentation. Upon presentation to [facility] she noted improvement to her migraine but still ongoing. She at OSH per ED physician was noted to be confused intermittently although was able to answer orientation questions. She upon current evaluation does appear intermittently confused but is also able to answer orientation questions. She admits to taking more medications than rx but could not say which specific medications she accidentally took twice. She presented to the OSH ED and work-up included VS: T 36.6, HR 98, BP 112/82, 98% on RA, CBC w/ WBC 16.8, Hgb 13.4, Plts 293 with increased neutrophils. CMP w/ Na 127, K 4.2, BUN/Cr 31/5.0, glucose 326, AST/ALT 54/43, AG normal, Trop normal, NH normal, EKG w/ ST, EtOH negative, salicylate level negative, acetaminophen level negative, UA w/ no infection, CPK 970, UDS w/ BZD, TCA, Opiates and CT head unremarkable per ED OSH physician report. Patient administered at OSH ED NS 100 cc/hr, 20 SC insulin, Benadryl and Zofran. Past Medical History Past Medical History (Chronic Problems): Chronic Problems (Last Reviewed 03/11/18 @ 14:52 by Merle Kaplan) Morbid obesity (Chronic) Chronic pain syndrome (Chronic) Insomnia (Chronic) Seasonal allergies (Chronic) Anxiety and depression (Chronic) Back problem (Chronic) Carpal tunnel syndrome (Chronic) Diabetes type 2, uncontrolled (Chronic) Frequent headaches (Chronic) HTN (hypertension) (Chronic) Fatty liver (Chronic) GERD (gastroesophageal reflux disease) (Chronic) Thyroid disease (Chronic) Fibromyalgia (Chronic) Diabetes mellitus (Chronic) Discussed with patient need to check BG consistently and routinely. Showed her how to check correctly along side of finger and how to improve chances of getting blood sample on low dial. She may be a candidate for leslie system,depending on insurance. We discussed importance of routine care and following medication plan. Her level of anxiety significantly reduce by end of appointment. Instructed to check BG in pairs over the next several days . Will obtain medical records Medical History: Medical History (Last Reviewed 03/11/18 @ 14:52 by Merle Kaplan) MRSA (methicillin resistant Staphylococcus aureus) (Acute) A49.02 x3 Seasonal allergies (Chronic) J30.2 Anxiety and depression (Chronic) F41.8 Back problem (Chronic) M53.9 Carpal tunnel syndrome (Chronic) G56.00 Diabetes type 2, uncontrolled (Chronic) E11.65 Frequent headaches (Chronic) R51 HTN (hypertension) (Chronic) I10 Fatty liver (Chronic) K76.0 GERD (gastroesophageal reflux disease) (Chronic) K21.9 Thyroid disease (Chronic) E07.9 Fibromyalgia (Chronic) M79.7 Allergies hydroxyzine [From Atarax] Allergy (Verified 03/11/18 14:52) Hives Sulfa (Sulfonamide Antibiotics) Allergy (Verified 03/11/18 14:52) Hives raspberry Adverse Reaction (Verified 03/11/18 14:52) Other migarine Home Medications: Ambulatory Orders Medication Instructions Recorded Levothyroxine Sodium [Synthroid] 300 mcg PO DAILY 10/16/15 Omeprazole [Prilosec] 40 mg PO DAILY 10/16/15 Topiramate [Topamax] 100 mg PO BID 10/16/15 Venlafaxine XR [Effexor Xr] 150 mg PO BID 10/16/15 Morphine Sulfate [Morphine Sulfate 30 mg PO TID 11/07/15 ER] Oxycodone HCl/Acetaminophen 1 tab PO Q6H PRN PRN 11/07/15 [Percocet 10-325 mg Tablet] blood sugar diagnostic strips See Dose Instructions .ROUTE 10/15/17 .MEDSUPPLY #100 ea blood-glucose meter kit See Dose Instructions .ROUTE 10/15/17 .MEDSUPPLY #1 ea lancets 28 gauge See Dose Instructions .ROUTE 10/15/17 .MEDSUPPLY #100 ea lidocaine 5 % topical ointment 1 applic TOPICAL BID-QID PRN 10/15/17 oxybutynin chloride 5 mg tablet 5 mg PO TID 10/15/17 Acyclovir [Acyclovir] 200 mg PO 5X/DAY PRN 01/18/18 Tizanidine HCl [Zanaflex] 4 mg PO TID 01/18/18 amitriptyline 100 mg tablet 100 mg PO QHS tab 02/19/18 glimepiride 2 mg tablet 2 mg PO QAM #90 tab 02/19/18 hydrochlorothiazide 12.5 mg capsule 12.5 mg PO QAM #90 cap 02/19/18 lisinopril 10 mg tablet 20 mg PO QDAY #90 tab 02/19/18 zolpidem 5 mg tablet 5 mg PO QHS PRN #10 tab 02/19/18 dulaglutide 0.75 mg/0.5 mL 0.75 mg SC QWEEK #2 ml 03/11/18 subcutaneous pen injector Surgical History: Surgical History (Last Reviewed 03/11/18 @ 14:52 by Merle Kaplan) H/O hernia repair Z98.890, Z87.19 H/O sinus surgery Z98.890 H/O thyroidectomy Z98.890, E89.0 H/O: Z98.891 History of incision and drainage Z98.890 Hx of appendectomy Z98.890, Z90.49 Hx of cholecystectomy Z98.890, Z90.49 S/P RUTH (total abdominal hysterectomy) Z90.710 S/P bronchoscopy Z98.890 cervical lymph node excision l toe surgery Surgical History: - - Hernia repair, sinus surgery, thyroidectomy, , appendectomy, cholecystectomy, RUTH, cervical lymph node resection. 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 Denies: Chills, Fever, Weight Change HEENT: Reports: Head Aches. Denies: Sinus Congestion, Sinus Drainage Cardiovascular: Denies: Chest Pain, Palpitations Respiratory: Denies: Cough, Shortness of breath at rest, Sputum production Gastrointestinal: Reports: Abdominal Pain. Denies: Nausea, Vomiting Genitourinary: Denies: Dysuria Musculoskeletal: Reports: Back Pain, Joint stiffness. Denies: Joint Pain, Joint Tenderness Skin: Denies: Rash, Wounds Neurological: Reports: Confusion. Denies: Focal weakness, Numbness, Tingling Psychiatric: Reports: Anxiety, Depression. Denies: Homicidal Ideations, Suicidal Ideations Hematologic/ Lymphatic: Denies: Easy Bruising, Easy Bleeding VTE Information - Inpt Only VTE Present on Admission: No VTE Mechan Device Prophylaxis: SCD's VTE Pharm Prophylaxis ordered?: Yes Patient Problems: Active and Suspected Problems (Last Reviewed 03/11/18 @ 14:52 by Merle Kaplan) Rhabdomyolysis (Acute) Migraine aura, persistent (Acute) Subjective: Seated upright in the PCU bed, fatigued appearing, intermittently appears confused during conversation. Objective: Physical Examination: General: awake, alert, oriented to self, place, recent events, but during exam frequently changing her history and confused, remains cooperative, seated upright in bed in no apparent distress. Skin: normal color, turgor, no icterus, cyanosis. HEENT: AT/NC, EOMI, PERRLA although sluggish, not pinpoint, mildly dry MM, no carotid bruits or JVD noted. Lungs: Diminished BS BL bases, moderate effort, no rales, ronchi or wheezing. Heart: Regular rate and rhythm; no gallop, rub audible. Abdomen: soft, morbidly obese, NTTP including no marked TTP near her abdominal incision where she notes she intermittent notes hernia, ND but difficult to assess secondary to habitus, normal BS, unable to assess HSM secondary to morbid obese habitus. Extremities: no cyanosis, clubbing, or edema. Neurological: patient awake, alert, oriented as noted; cognitive function suspect decreased from baseline; pupils equally reactive to light and accomodation although sluggish; cranial nerves II-XII grossly normal, moving all 4 extremities, no focal deficits, strength moderately globally decreased. Psychiatric: affect appears flat, mildly lethargic, no acute evidence of depressive or anxiety feelings. - Physical Exam Vital Signs Temp Pulse Resp BP Pulse Ox 98.6 F 95 18 101/72 98 03/22/18 04:26 03/22/18 04:26 03/22/18 04:26 03/22/18 04:26 03/22/18 04:26 Oxygen Delivery Method Room Air Finger Stick Blood Glucose 195 Assessment/Plan All Active Problems (Last Reviewed 03/11/18 @ 14:52 by Merle Kaplan) Rhabdomyolysis (Acute) Migraine aura, persistent (Acute) MRSA (methicillin resistant Staphylococcus aureus) (Acute) Acute respiratory failure (Acute) ARF (acute renal failure) (Acute) Hyperosmolarity due to secondary diabetes (Acute) Depression (Acute) The patient is a 42 y/o F w/ PMHx: Diabetes mellitus type II Poorly Controlled, Chronic Pain Syndrome on Chronic Narcotic Therapy, HTN, HLD, Bipolar Disorder, Known Colonization Sputum w/ MRSA, GERD, Hypothyroidism, Migraines who presents to the [facility] as direct admission from [facility] on 03/22/18 w/ history of ongoing migraine headache frontal region with mild photophobia and phonophobia similar to her chronic migraine headaches w/ associated vertigo and worsened chronic pain including recent exacerbation of her pain associated w/ her incisional abdominal hernia secondary to helping her daughter pack boxes on day prior to current presentation. (1) Acute kidney injury: Secondary to similar presentation to prior admission, possible accidental overdose, hyperosmolar hyperglycemia state and possibly hypovolemia. Admission BUN/Cr 31/5.0, prior baseline creatinine noted to be 1.69 (last 03/06/18) following prior admission w/ BAMBI (highest 4.94 Cr). Will hydrate, hold nephrotoxic medications and trend BMP as noted. Will obtain FeNa and renal US. Will consult Nephrology. (2) ? Possible Hyperosmolar Hyperglycemic State: Patient w/ mental status change, OSH glucose 326, patient administered 20 u SC in the ED OSH, AG normal, no repeat BS. Will closely monitor BS, repeat BMP upon admission, maintain in aggressive IVFs, obtain mag and phos levels, if necessary will start insulin drip otherwise will initiate on Levemir 10 u BID and add TID insulin w/ meals and adjust as needed w/ ISS overlap w/ accu checks. Nutrition consultation pending. Encouraged diet and insulin regimen compliance. Last HgbA1c 01/16/18 9.1%. From records, poorly controlled, not inclined to lose weight and not markedly consistent with her medications. Serum Osm pending. (3) Mild Rhabdomyolysis: Complicating admission, unclear if again was less active, not found down as with prior admission, but concern for overdose again. OSH TCK 970, will trend TCK, continue aggressive hydration, monitor I+Os, repeat CMP upon admission given last performed hours earlier to assess for worsened status. (4) Acute Encephalopathy: Suspected secondary to possible accidental overdose on her chronic narcotic therapy, BZD not rx, compounded by #1, #2 and #3. Will hold sedative longer acting regimen and to avoid withdrawal may consider short acting regimen in the interim. PCP has been attempting to work with her to reduce her chronic sedative medications from her most recent note. (5) Migraine Headache: Will continue home topiramate regimen as dosing consistent w/ HD dosing level. Given BAMBI will avoid NSAID therapy. Attempting to avoid her long-acting narcotics, short acting if necessary. Given still persistent will add IV VPA 500mg Q6 hours, IV Decadron 4mg Q6 hours. CT Head from OSH unremarkable per ED physician report. (6) Chronic Pain Syndrome on Chronic Narcotic Therapy: Suspect etiology for current presentation secondary to accidental overdose. Will hold sedative longer acting regimen and to avoid withdrawal may consider short acting regimen in the interim. (7) Hypertension: Hold home lisinopril-HCTZ regimen given BAMBI, as needed labetalol, as needed oral hydralazine in interim. (8) Hyperlipidemia: Not on agent, defer to outpatient. (9) Anxiety and depression/bipolar disorder: Given renal function changes will transition to reduction to total daily dose 50% with Effexor 75 mg BID. (10) Hypothyroidism: Continue home synthroid regimen. (11) Polysubstance Abuse: UDS w/ BZD, TCA, Opiates, from prior medication list, she is not rx BZD however TCA can be a false positive w/ muscle relaxants and certain antihistamines which the patient concurrently takes. PCP has been attempting to work with her to reduced her chronic sedative medications from her most recent note. (12) Morbid Obesity: Weight loss and lifestyle changes encouraged, Nutrition consulted. (13) GERD: PPI. (14) DVT Prophylaxis: SCDs, heparin. Code Visit Inpatient E&M: 59807 Init Hosp L3
[2018-03-22] MEDS: 0.9% Normal Saline 1,000 ML 999 ML IV (04:30)
--- NOTE | 2018-03-22 04:31 | HP.PCM_ITS ---
Problem List (1) ARF (acute renal failure) Status: Acute Qualifiers: Acute renal failure type: unspecified Qualified Code(s): N17.9 - Acute kidney failure, unspecified (2) Rhabdomyolysis Status: Acute Qualifiers: Rhabdomyolysis type: non-traumatic Qualified Code(s): M62.82 - Rhabdomyolysis (3) Migraine aura, persistent Status: Acute Qualifiers: Status migrainosus presence: with status migrainosus Intractability: intractable Qualified Code(s): G43.511 - Persistent migraine aura without cerebral infarction, intractable, with status migrainosus (4) Morbid obesity Status: Chronic (5) Seasonal allergies Status: Chronic Qualifiers: Allergic rhinitis trigger: unspecified Qualified Code(s): J30.2 - Other seasonal allergic rhinitis (6) Anxiety and depression Status: Chronic (7) GERD (gastroesophageal reflux disease) Status: Chronic Qualifiers: Esophagitis presence: esophagitis presence not specified Qualified Code(s) : K21.9 - Gastro-esophageal reflux disease without esophagitis (8) Thyroid disease Status: Chronic (9) Diabetes mellitus Status: Chronic Qualifiers: Diabetes mellitus type: type 2 Diabetes mellitus residential insulin use: with terminal worker use Diabetes mellitus complication status: with unspecified complications Qualified Code(s): E11.8 - Type 2 diabetes mellitus with unspecified complications; Z79.4 - exterminator (current) use of insulin Comment: Discussed with patient need to check BG consistently and routinely. Showed her how to check correctly along side of finger and how to improve chances of getting blood sample on low dial. She may be a candidate for leslie system,depending on insurance. We discussed importance of routine care and following medication plan. Her level of anxiety significantly reduce by end of appointment. Instructed to check BG in pairs over the next several days . Will obtain medical records (10) Chronic pain syndrome Status: Chronic History of Present Illness Date of Admission: 03/22/18 Chief Complaint: Migraine, Confusion, Generalized Pain The patient is a 42 y/o F w/ PMHx: Diabetes mellitus type II Poorly Controlled, Chronic Pain Syndrome on Chronic Narcotic Therapy, HTN, HLD, Bipolar Disorder, Known Colonization Sputum w/ MRSA, GERD, Hypothyroidism, Migraines who presents to the [facility] as direct admission from [facility] on 03/22/18 w/ history of ongoing migraine headache frontal region with mild photophobia and phonophobia similar to her chronic migraine headaches w/ associated vertigo and worsened chronic pain including recent exacerbation of her pain associated w/ her incisional abdominal hernia secondary to helping her daughter pack boxes on day prior to current presentation. Upon presentation to [facility] she noted improvement to her migraine but still ongoing. She at OSH per ED physician was noted to be confused intermittently although was able to answer orientation questions. She upon current evaluation does appear intermittently confused but is also able to answer orientation questions. She admits to taking more medications than rx but could not say which specific medications she accidentally took twice. She presented to the OSH ED and work-up included VS: T 36.6, HR 98, BP 112/82, 98% on RA, CBC w/ WBC 16.8, Hgb 13.4, Plts 293 with increased neutrophils. CMP w/ Na 127, K 4.2, BUN/Cr 31/5.0, glucose 326, AST/ ALT 54/43, AG normal, Trop normal, NH normal, EKG w/ ST, EtOH negative, salicylate level negative, acetaminophen level negative, UA w/ no infection, CPK 970, UDS w/ BZD, TCA, Opiates and CT head unremarkable per ED OSH physician report. Patient administered at OSH ED NS 100 cc/hr, 20 SC insulin, Benadryl and Zofran. Past Medical History Past Medical History (Chronic Problems): Chronic Problems (Last Reviewed 03/11/18 @ 14:52 by Merle Kaplan) Morbid obesity (Chronic) Chronic pain syndrome (Chronic) Insomnia (Chronic) Seasonal allergies (Chronic) Anxiety and depression (Chronic) Back problem (Chronic) Carpal tunnel syndrome (Chronic) Diabetes type 2, uncontrolled (Chronic) Frequent headaches (Chronic) HTN (hypertension) (Chronic) Fatty liver (Chronic) GERD (gastroesophageal reflux disease) (Chronic) Thyroid disease (Chronic) Fibromyalgia (Chronic) Diabetes mellitus (Chronic) Discussed with patient need to check BG consistently and routinely. Showed her how to check correctly along side of finger and how to improve chances of getting blood sample on low dial. She may be a candidate for leslie system, depending on insurance. We discussed importance of routine care and following medication plan. Her level of anxiety significantly reduce by end of appointment. Instructed to check BG in pairs over the next several days . Will obtain medical records Medical History: Medical History (Last Reviewed 03/11/18 @ 14:52 by Merle Kaplan) MRSA (methicillin resistant Staphylococcus aureus) (Acute) A49.02 x3 Seasonal allergies (Chronic) J30.2 Anxiety and depression (Chronic) F41.8 Back problem (Chronic) M53.9 Carpal tunnel syndrome (Chronic) G56.00 Diabetes type 2, uncontrolled (Chronic) E11.65 Frequent headaches (Chronic) R51 HTN (hypertension) (Chronic) I10 Fatty liver (Chronic) K76.0 GERD (gastroesophageal reflux disease) (Chronic) K21.9 Thyroid disease (Chronic) E07.9 Fibromyalgia (Chronic) M79.7 Allergies hydroxyzine [From Atarax] Allergy (Verified 03/11/18 14:52) Hives Sulfa (Sulfonamide Antibiotics) Allergy (Verified 03/11/18 14:52) Hives raspberry Adverse Reaction (Verified 03/11/18 14:52) Other migarine Home Medications: Ambulatory Orders Medication Instructions Recorded Levothyroxine Sodium [Synthroid] 300 mcg PO DAILY 10/16/15 Omeprazole [Prilosec] 40 mg PO DAILY 10/16/15 Topiramate [Topamax] 100 mg PO BID 10/16/15 Venlafaxine XR [Effexor Xr] 150 mg PO BID 10/16/15 Morphine Sulfate [Morphine Sulfate 30 mg PO TID 11/07/15 ER] Oxycodone HCl/Acetaminophen 1 tab PO Q6H PRN PRN 11/07/15 [Percocet 10-325 mg Tablet] blood sugar diagnostic strips See Dose Instructions .ROUTE 10/15/17 .MEDSUPPLY #100 ea blood-glucose meter kit See Dose Instructions .ROUTE 10/15/17 .MEDSUPPLY #1 ea lancets 28 gauge See Dose Instructions .ROUTE 10/15/17 .MEDSUPPLY #100 ea lidocaine 5 % topical ointment 1 applic TOPICAL BID-QID PRN 10/15/17 oxybutynin chloride 5 mg tablet 5 mg PO TID 10/15/17 Acyclovir [Acyclovir] 200 mg PO 5X/DAY PRN 01/18/18 Tizanidine HCl [Zanaflex] 4 mg PO TID 01/18/18 amitriptyline 100 mg tablet 100 mg PO QHS tab 02/19/18 glimepiride 2 mg tablet 2 mg PO QAM #90 tab 02/19/18 hydrochlorothiazide 12.5 mg capsule 12.5 mg PO QAM #90 cap 02/19/18 lisinopril 10 mg tablet 20 mg PO QDAY #90 tab 02/19/18 zolpidem 5 mg tablet 5 mg PO QHS PRN #10 tab 02/19/18 dulaglutide 0.75 mg/0.5 mL 0.75 mg SC QWEEK #2 ml 03/11/18 subcutaneous pen injector Surgical History: Surgical History (Last Reviewed 03/11/18 @ 14:52 by Merle Kaplan) H/O hernia repair Z98.890, Z87.19 H/O sinus surgery Z98.890 H/O thyroidectomy Z98.890, E89.0 H/O: Z98.891 History of incision and drainage Z98.890 Hx of appendectomy Z98.890, Z90.49 Hx of cholecystectomy Z98.890, Z90.49 S/P RUTH (total abdominal hysterectomy) Z90.710 S/P bronchoscopy Z98.890 cervical lymph node excision l toe surgery Surgical History: - - Hernia repair, sinus surgery, thyroidectomy, , appendectomy, cholecystectomy, RUTH, cervical lymph node resection. 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 Denies: Chills, Fever, Weight Change HEENT: Reports: Head Aches. Denies: Sinus Congestion, Sinus Drainage Cardiovascular: Denies: Chest Pain, Palpitations Respiratory: Denies: Cough, Shortness of breath at rest, Sputum production Gastrointestinal: Reports: Abdominal Pain. Denies: Nausea, Vomiting Genitourinary: Denies: Dysuria Musculoskeletal: Reports: Back Pain, Joint stiffness. Denies: Joint Pain, Joint Tenderness Skin: Denies: Rash, Wounds Neurological: Reports: Confusion. Denies: Focal weakness, Numbness, Tingling Psychiatric: Reports: Anxiety, Depression. Denies: Homicidal Ideations, Suicidal Ideations Hematologic/ Lymphatic: Denies: Easy Bruising, Easy Bleeding VTE Information - Inpt Only VTE Present on Admission: No VTE Mechan Device Prophylaxis: SCD's VTE Pharm Prophylaxis ordered?: Yes Patient Problems: Active and Suspected Problems (Last Reviewed 03/11/18 @ 14:52 by Merle Kaplan ) Rhabdomyolysis (Acute) Migraine aura, persistent (Acute) Subjective: Seated upright in the PCU bed, fatigued appearing, intermittently appears confused during conversation. Objective: Physical Examination: General: awake, alert, oriented to self, place, recent events, but during exam frequently changing her history and confused, remains cooperative, seated upright in bed in no apparent distress. Skin: normal color, turgor, no icterus, cyanosis. HEENT: AT/NC, EOMI, PERRLA although sluggish, not pinpoint, mildly dry MM, no carotid bruits or JVD noted. Lungs: Diminished BS BL bases, moderate effort, no rales, ronchi or wheezing. Heart: Regular rate and rhythm; no gallop, rub audible. Abdomen: soft, morbidly obese, NTTP including no marked TTP near her abdominal incision where she notes she intermittent notes hernia, ND but difficult to assess secondary to habitus, normal BS, unable to assess HSM secondary to morbid obese habitus. Extremities: no cyanosis, clubbing, or edema. Neurological: patient awake, alert, oriented as noted; cognitive function suspect decreased from baseline; pupils equally reactive to light and accomodation although sluggish; cranial nerves II-XII grossly normal, moving all 4 extremities, no focal deficits, strength moderately globally decreased. Psychiatric: affect appears flat, mildly lethargic, no acute evidence of depressive or anxiety feelings. - Physical Exam Vital Signs Temp Pulse Resp BP Pulse Ox 98.6 F 95 18 101/72 98 03/22/18 04:26 03/22/18 04:26 03/22/18 04:26 03/22/18 04:26 03/22/18 04:26 Oxygen Delivery Method Room Air Finger Stick Blood Glucose 195 Assessment/Plan All Active Problems (Last Reviewed 03/11/18 @ 14:52 by Merle Kaplan) Rhabdomyolysis (Acute) Migraine aura, persistent (Acute) MRSA (methicillin resistant Staphylococcus aureus) (Acute) Acute respiratory failure (Acute) ARF (acute renal failure) (Acute) Hyperosmolarity due to secondary diabetes (Acute) Depression (Acute) The patient is a 42 y/o F w/ PMHx: Diabetes mellitus type II Poorly Controlled, Chronic Pain Syndrome on Chronic Narcotic Therapy, HTN, HLD, Bipolar Disorder, Known Colonization Sputum w/ MRSA, GERD, Hypothyroidism, Migraines who presents to the [facility] as direct admission from [facility] on 03/22/18 w/ history of ongoing migraine headache frontal region with mild photophobia and phonophobia similar to her chronic migraine headaches w/ associated vertigo and worsened chronic pain including recent exacerbation of her pain associated w/ her incisional abdominal hernia secondary to helping her daughter pack boxes on day prior to current presentation. (1) Acute kidney injury: Secondary to similar presentation to prior admission, possible accidental overdose, hyperosmolar hyperglycemia state and possibly hypovolemia. Admission BUN/Cr 31/5.0, prior baseline creatinine noted to be 1.69 (last 03/06/18) following prior admission w/ BAMBI (highest 4.94 Cr). Will hydrate, hold nephrotoxic medications and trend BMP as noted. Will obtain FeNa and renal US. Will consult Nephrology. (2) ? Possible Hyperosmolar Hyperglycemic State: Patient w/ mental status change , OSH glucose 326, patient administered 20 u SC in the ED OSH, AG normal, no repeat BS. Will closely monitor BS, repeat BMP upon admission, maintain in aggressive IVFs, obtain mag and phos levels, if necessary will start insulin drip otherwise will initiate on Levemir 10 u BID and add TID insulin w/ meals and adjust as needed w/ ISS overlap w/ accu checks. Nutrition consultation pending. Encouraged diet and insulin regimen compliance. Last HgbA1c 01/16/18 9.1% . From records, poorly controlled, not inclined to lose weight and not markedly consistent with her medications. Serum Osm pending. (3) Mild Rhabdomyolysis: Complicating admission, unclear if again was less active, not found down as with prior admission, but concern for overdose again. OSH TCK 970, will trend TCK, continue aggressive hydration, monitor I+Os, repeat CMP upon admission given last performed hours earlier to assess for worsened status. (4) Acute Encephalopathy: Suspected secondary to possible accidental overdose on her chronic narcotic therapy, BZD not rx, compounded by #1, #2 and #3. Will hold sedative longer acting regimen and to avoid withdrawal may consider short acting regimen in the interim. PCP has been attempting to work with her to reduce her chronic sedative medications from her most recent note. (5) Migraine Headache: Will continue home topiramate regimen as dosing consistent w/ HD dosing level. Given BAMBI will avoid NSAID therapy. Attempting to avoid her long-acting narcotics, short acting if necessary. Given still persistent will add IV VPA 500mg Q6 hours, IV Decadron 4mg Q6 hours. CT Head from OSH unremarkable per ED physician report. (6) Chronic Pain Syndrome on Chronic Narcotic Therapy: Suspect etiology for current presentation secondary to accidental overdose. Will hold sedative longer acting regimen and to avoid withdrawal may consider short acting regimen in the interim. (7) Hypertension: Hold home lisinopril-HCTZ regimen given BAMBI, as needed labetalol, as needed oral hydralazine in interim. (8) Hyperlipidemia: Not on agent, defer to outpatient. (9) Anxiety and depression/bipolar disorder: Given renal function changes will transition to reduction to total daily dose 50% with Effexor 75 mg BID. (10) Hypothyroidism: Continue home synthroid regimen. (11) Polysubstance Abuse: UDS w/ BZD, TCA, Opiates, from prior medication list, she is not rx BZD however TCA can be a false positive w/ muscle relaxants and certain antihistamines which the patient concurrently takes. PCP has been attempting to work with her to reduced her chronic sedative medications from her most recent note. (12) Morbid Obesity: Weight loss and lifestyle changes encouraged, Nutrition consulted. (13) GERD: PPI. (14) DVT Prophylaxis: SCDs, heparin. Code Visit Inpatient E&M: 59932 Init Hosp L3
[2018-03-22] MEDS: Heparin Injection (Vial) 5,000 UNIT/ML VIAL 5000 UNIT SC ×3 (05:33→21:24)
--- NOTE | 2018-03-22 06:23 | NURSING ---
IV attempted x3 per this RN without success. 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
--- NOTE | 2018-03-22 06:24 | NURSING ---
Dr. Jade entered order for midline placement. Called [facility] at this time and spoke with a accounting representative named Enma. [facility] will be calling back with an estimated time of arrival.
[2018-03-22] MEDS: Levothyroxine 100 MCG Tablet 300 MCG PO (06:29)
--- NOTE | 2018-03-22 06:30 | NURSING ---
Multiple iv/blood draw attempts on pt this am. Unable to get any iv or am labs, md aware. Iv fluid bolus was started but not completed, all iv meds will be late d/t no iv access until midline is able to be placed.
[2018-03-22 07:00] LABS: Bedside Glucose 239 mg/dL (70-110)
[2018-03-22 09:35] LABS: Urine Sodium 51 mmol/L (Not Establ.)
[2018-03-22] MEDS: Insulin Lispro 100 UNIT/ML INSULN.PEN SC ×7 (10:53→21:24)
[2018-03-22] MEDS: Pantoprazole Sodium 20 MG Tablet PO ×2 (10:56→21:23)
[2018-03-22] MEDS: Topiramate 100 MG Tablet PO ×2 (10:56→21:24)
[2018-03-22] MEDS: Venlafaxine HCl 75 MG Tablet PO ×2 (10:57→21:25)
[2018-03-22] MEDS: 0.9% Normal Saline 1,000 ML 150 ML IV ×2 (11:00→19:33)
[2018-03-22 12:25] LABS: Bedside Glucose 193 mg/dL (70-110)
--- NOTE | 2018-03-22 12:28 | PCM.PN.HOSP ---
Patient Problems: Active and Suspected Problems (Last Reviewed 03/11/18 @ 14:52 by Merle Kaplan) Rhabdomyolysis (Acute) Migraine aura, persistent (Acute) Subjective: Patient seen and examined. Patient was admitted from [facility] per admitting note with a history of ongoing frontal migraine headache with assisted photophobia and phonophobia. She also had vertigo worsening chronic pain. On admission to [facility], migraine had improved a bit. Per documented note, she was noted to be confused at outside hospital. Couple and CT of the head was negative. She was admitted and is being managed for migraine or headache, due to possible overdose of her chronic narcotic medication, AK I and mild rhabdomyolysis. She was started on IV fluids and IV Decadron for headache. Patient seen and examined this morning. Patient was a bit confused and cannot really give a clear history as to why she was here. She kept on saying she went to [facility] with her for to be checked since she was not feeling well and then after that she wanted to be checked. She could not really tell me what was going on but she wanted to be checked for but was transferred here. At this point, headache is better, she denies any fever or chills, any cough or chest pain, no abdominal pain, any diarrhea vomiting. Review of systems is otherwise negative. Patient was alert and oriented ?[address] Vitals reviewed. Labs ordered and admission has still not been done because patient lost IV access has a very hard stick. Midline has been ordered. Vitals/I&O's: Vital Signs Temp Pulse Resp BP Pulse Ox 98.7 F 98 18 108/70 97 03/22/18 10:25 03/22/18 11:24 03/22/18 10:25 03/22/18 10:25 03/22/18 10:25 Oxygen Delivery Method Room Air Weight: 365 lb 4.895 oz Body Mass Index (BMI) 52.4 Finger Stick Blood Glucose 195 Intake and Output for Last 24 Hours 03/20/18 03/21/18 03/22/18 23:59 23:59 23:59 Intake Total 731 / 731 Balance 731 / 731 General: Alert, Cooperative, Confused - AO x 2 (to person and place) Oral: Moist Mucosa Neck: Supple, No JVD, Negative Carotid Bruits Lungs: Clear to auscultation, Normal air movement Cardiovascular: Regular rate, Regular Rhythm, Normal S1, Normal S2, No murmurs Abdomen: Bowel Sounds Present, Soft, Non Tender, Non-Distended, No Hepato-splenomegaly, Obese, - - infraumbilical longitudinal well healed surgical scar Extremities: No clubbing, No cyanosis, No edema, Capillary Refill Less than 3 Seconds Skin: No rashes, No breakdown Musculoskeletal: No Tenderness to Palpation of Joints or Extremities Lymphatic: No Cervical, Supraclavicular, or Inguinal Adenopathy Neurological: Cranial nerves II-XII grossly intact, Motor Exam 5/5 strength throughout Psych/Mental Status: - - has episodes of confusion during review Laboratory Results 03/22/18 06:48: POC Glucose 239 H 03/22/18 09:10: Ur Random Sodium 51 03/22/18 09:10: Urine Creatinine 189.00 03/22/18 12:13: POC Glucose 193 H Current Medications Acetaminophen (Tylenol) 650 mg PO Q6H PRN PRN PRN Reason: Non-cardiac pain (mod-severe) Al Hydroxide/Mg Hydroxide (Mylanta Ii) 30 ml PO Q6H PRN PRN PRN Reason: Gastric burning Amitriptyline HCl (Elavil) 100 mg PO QHS [facility] Dexamethasone Sodium Phosphate (Decadron) 4 mg IV Q6 [facility] Last Admin: 03/22/18 11:08 Dose: Not Given Dextrose (D50w Syringe) 0 gm IV X1 PRN; Protocol PRN Reason: Hypoglycemia Glucagon () 1 mg IM .X1 PRN PRN Reason: Hypoglycemia Heparin Sodium (Porcine) (Heparin Na) 5,000 unit SC Q8 [facility] Last Admin: 03/22/18 12:18 Dose: 5,000 u Hydralazine HCl (Apresoline) 25 mg PO Q6H PRN PRN PRN Reason: SBP > 160 Sodium Chloride () 1,000 mls @ 150 mls/hr IV .Q6H40M [facility] Last Admin: 03/22/18 11:00 Dose: 150 mls/hr Valproic Acid 500 mg/ Dextrose 55 mls @ 50 mls/hr IV Q6 [facility] Last Admin: 03/22/18 11:08 Dose: Not Given Insulin Glargine (Lantus (Bkc)) 10 units SC BID [facility] Last Admin: 03/22/18 10:56 Dose: 10 u Insulin Human Lispro (Humalog Kwikpen (Bkc)) 0 unit SC ACHS [facility] PRN Reason: Protocol Last Admin: 03/22/18 12:15 Dose: 2 u Insulin Human Lispro (Humalog Kwikpen (Bkc)) 5 unit SC TIDAC [facility] Last Admin: 03/22/18 12:15 Dose: 5 u Levothyroxine Sodium (Synthroid) 300 mcg PO DAILY@0600 [facility] Last Admin: 03/22/18 06:29 Dose: 300 mcg Magnesium Hydroxide (Milk Of Magnesia) 30 ml PO DAILY PRN PRN Reason: Constipation Metoprolol Tartrate (Lopressor (Beta Angi)) 5 mg IV Q6H PRN PRN PRN Reason: SBP > 160, hold for HR < 60 Ondansetron HCl (Zofran) 4 mg IV Q8H PRN PRN PRN Reason: NAUSEA Pantoprazole Sodium (Protonix) 20 mg PO BID [facility] Last Admin: 03/22/18 10:56 Dose: 20 mg Promethazine HCl (Phenergan) 12.5 mg IV Q6H PRN PRN PRN Reason: NAUSEA/VOMITING Sodium Chloride () 5 - 30 ml IV UD PRN PRN Reason: SALINE FLUSH Topiramate (Topamax) 100 mg PO BID [facility] Last Admin: 03/22/18 10:56 Dose: 100 mg Venlafaxine HCl (Effexor) 75 mg PO BID [facility] Last Admin: 03/22/18 10:57 Dose: 75 mg Medical Necessity - Tobacco Use Smoking Status: Former smoker Tobacco Use: Non-smoker Assessment/Plan All Active Problems (Last Reviewed 03/11/18 @ 14:52 by Merle Kaplan) Rhabdomyolysis (Acute) Migraine aura, persistent (Acute) MRSA (methicillin resistant Staphylococcus aureus) (Acute) Acute respiratory failure (Acute) ARF (acute renal failure) (Acute) Hyperosmolarity due to secondary diabetes (Acute) Depression (Acute) 1. BAMBI admitted with diagnosis of BAMBI. Cr on admission was 5, BUN was 31. Baseline Cr is 1.69 (03/06/18) labs ordered at admission still pending due to patient being hard stick. nephrology consulted urine electrolytes ordered; unable to check FeNA as BMP is still pending 2. Acute metabolic encephalopathy due to medication overdose and also uremia patient appears to have episodes of confusion during review, and couldnt give a very good history says she took multiple doses of her narcotic meds, so this may also be contributing to it sedatives and narcotics on hold. will monitor for improvement 3. HHS blood sugar was 326 on admission given 20IU of SC insulin at [facility]; no anio gap, per documentation being hydrated with IVF; however lost IV access and is a hard stick, so midline being placed last A1C 9.1 started on levemir 10IU bid and ISS. nutrition consulted 4. Rhabdomyolysis CK at [facility] was 970. will monitor with hydration 5. Acute migraine headache has a history of migraines on topamax. started on IV decadrone. CT head done at OSH was negative. 6. Chronic pain syndrome: on chronic narcotics, which may havae contributed to her current metabolic encephalopathy. Meds currently on hold 7. Hypertension: on labetalol prn. lisinopril and HCTZ on hold due to BAMBI 8. Hypothyroidism: on synthroid 9. Anxiety, depression and bipolar disordre: on effexor. Being titrated down to 75mg bid due to renal impairment 10. Polysusbstance abuse: urine tox positive for benzodiazepines, TCA and opiates. Working with us. 11. Morbid obesity: counselled on diet and lifestyle changes. Nutrition consulted. 12. GERD: on PPI DVT prophylaxis: heparin This note was generated with [employer] dictation software. It may contain incorrect words, spelling, and punctuation that were not noted in checking the note before signing. Code Visit Inpatient E&M: 11131 [facility] Hosp L3
--- NOTE | 2018-03-22 12:33 | PN_ITS ---
Patient Problems: Active and Suspected Problems (Last Reviewed 03/11/18 @ 14:52 by Merle Kaplan ) Rhabdomyolysis (Acute) Migraine aura, persistent (Acute) Subjective: Patient seen and examined. Patient was admitted from [facility] per admitting note with a history of ongoing frontal migraine headache with assisted photophobia and phonophobia. She also had vertigo worsening chronic pain. On admission to [facility], migraine had improved a bit. Per documented note, she was noted to be confused at outside hospital. Couple and CT of the head was negative. She was admitted and is being managed for migraine or headache, due to possible overdose of her chronic narcotic medication, AK I and mild rhabdomyolysis. She was started on IV fluids and IV Decadron for headache. Patient seen and examined this morning. Patient was a bit confused and cannot really give a clear history as to why she was here. She kept on saying she went to [facility] with her for to be checked since she was not feeling well and then after that she wanted to be checked. She could not really tell me what was going on but she wanted to be checked for but was transferred here. At this point, headache is better, she denies any fever or chills, any cough or chest pain, no abdominal pain, any diarrhea vomiting. Review of systems is otherwise negative. Patient was alert and oriented ?[address] Vitals reviewed. Labs ordered and admission has still not been done because patient lost IV access has a very hard stick. Midline has been ordered. Vitals/I&O's: Vital Signs Temp Pulse Resp BP Pulse Ox 98.7 F 98 18 108/70 97 03/22/18 10:25 03/22/18 11:24 03/22/18 10:25 03/22/18 10:25 03/22/18 10:25 Oxygen Delivery Method Room Air Weight: 365 lb 4.895 oz Body Mass Index (BMI) 52.4 Finger Stick Blood Glucose 195 Intake and Output for Last 24 Hours 03/20/18 03/21/18 03/22/18 23:59 23:59 23:59 Intake Total 731 / 731 Balance 731 / 731 General: Alert, Cooperative, Confused - AO x 2 (to person and place) Oral: Moist Mucosa Neck: Supple, No JVD, Negative Carotid Bruits Lungs: Clear to auscultation, Normal air movement Cardiovascular: Regular rate, Regular Rhythm, Normal S1, Normal S2, No murmurs Abdomen: Bowel Sounds Present, Soft, Non Tender, Non-Distended, No Hepato- splenomegaly, Obese, - - infraumbilical longitudinal well healed surgical scar Extremities: No clubbing, No cyanosis, No edema, Capillary Refill Less than 3 Seconds Skin: No rashes, No breakdown Musculoskeletal: No Tenderness to Palpation of Joints or Extremities Lymphatic: No Cervical, Supraclavicular, or Inguinal Adenopathy Neurological: Cranial nerves II-XII grossly intact, Motor Exam 5/5 strength throughout Psych/Mental Status: - - has episodes of confusion during review Laboratory Results 03/22/18 06:48: POC Glucose 239 H 03/22/18 09:10: Ur Random Sodium 51 03/22/18 09:10: Urine Creatinine 189.00 03/22/18 12:13: POC Glucose 193 H Current Medications Acetaminophen (Tylenol) 650 mg PO Q6H PRN PRN PRN Reason: Non-cardiac pain (mod-severe) Al Hydroxide/Mg Hydroxide (Mylanta Ii) 30 ml PO Q6H PRN PRN PRN Reason: Gastric burning Amitriptyline HCl (Elavil) 100 mg PO QHS [facility] Dexamethasone Sodium Phosphate (Decadron) 4 mg IV Q6 [facility] Last Admin: 03/22/18 11:08 Dose: Not Given Dextrose (D50w Syringe) 0 gm IV X1 PRN; Protocol PRN Reason: Hypoglycemia Glucagon () 1 mg IM .X1 PRN PRN Reason: Hypoglycemia Heparin Sodium (Porcine) (Heparin Na) 5,000 unit SC Q8 [facility] Last Admin: 03/22/18 12:18 Dose: 5,000 u Hydralazine HCl (Apresoline) 25 mg PO Q6H PRN PRN PRN Reason: SBP > 160 Sodium Chloride () 1,000 mls @ 150 mls/hr IV .Q6H40M [facility] Last Admin: 03/22/18 11:00 Dose: 150 mls/hr Valproic Acid 500 mg/ Dextrose 55 mls @ 50 mls/hr IV Q6 [facility] Last Admin: 03/22/18 11:08 Dose: Not Given Insulin Glargine (Lantus (Bkc)) 10 units SC BID [facility] Last Admin: 03/22/18 10:56 Dose: 10 u Insulin Human Lispro (Humalog Kwikpen (Bkc)) 0 unit SC ACHS [facility] PRN Reason: Protocol Last Admin: 03/22/18 12:15 Dose: 2 u Insulin Human Lispro (Humalog Kwikpen (Bkc)) 5 unit SC TIDAC [facility] Last Admin: 03/22/18 12:15 Dose: 5 u Levothyroxine Sodium (Synthroid) 300 mcg PO DAILY@0600 [facility] Last Admin: 03/22/18 06:29 Dose: 300 mcg Magnesium Hydroxide (Milk Of Magnesia) 30 ml PO DAILY PRN PRN Reason: Constipation Metoprolol Tartrate (Lopressor (Beta Angi)) 5 mg IV Q6H PRN PRN PRN Reason: SBP > 160, hold for HR < 60 Ondansetron HCl (Zofran) 4 mg IV Q8H PRN PRN PRN Reason: NAUSEA Pantoprazole Sodium (Protonix) 20 mg PO BID [facility] Last Admin: 03/22/18 10:56 Dose: 20 mg Promethazine HCl (Phenergan) 12.5 mg IV Q6H PRN PRN PRN Reason: NAUSEA/VOMITING Sodium Chloride () 5 - 30 ml IV UD PRN PRN Reason: SALINE FLUSH Topiramate (Topamax) 100 mg PO BID [facility] Last Admin: 03/22/18 10:56 Dose: 100 mg Venlafaxine HCl (Effexor) 75 mg PO BID [facility] Last Admin: 03/22/18 10:57 Dose: 75 mg Medical Necessity - Tobacco Use Smoking Status: Former smoker Tobacco Use: Non-smoker Assessment/Plan All Active Problems (Last Reviewed 03/11/18 @ 14:52 by Merle Kaplan) Rhabdomyolysis (Acute) Migraine aura, persistent (Acute) MRSA (methicillin resistant Staphylococcus aureus) (Acute) Acute respiratory failure (Acute) ARF (acute renal failure) (Acute) Hyperosmolarity due to secondary diabetes (Acute) Depression (Acute) 1. BAMBI * admitted with diagnosis of BAMBI. * Cr on admission was 5, BUN was 31. Baseline Cr is 1.69 (03/06/18) * labs ordered at admission still pending due to patient being hard stick. * nephrology consulted * urine electrolytes ordered; unable to check FeNA as BMP is still pending * 2. Acute metabolic encephalopathy due to medication overdose and also uremia * patient appears to have episodes of confusion during review, and couldnt give a very good history * says she took multiple doses of her narcotic meds, so this may also be contributing to it * sedatives and narcotics on hold. * will monitor for improvement * 3. HHS * blood sugar was 326 on admission * given 20IU of SC insulin at [facility]; no anio gap, per documentation * being hydrated with IVF; however lost IV access and is a hard stick, so midline being placed * last A1C 9.1 * started on levemir 10IU bid and ISS. * nutrition consulted * 4. Rhabdomyolysis * CK at [facility] was 970. * will monitor with hydration * 5. Acute migraine headache * has a history of migraines * on topamax. started on IV decadrone. * CT head done at OSH was negative. * 6. Chronic pain syndrome: * on chronic narcotics, which may havae contributed to her current metabolic encephalopathy. Meds currently on hold 7. Hypertension: * on labetalol prn. lisinopril and HCTZ on hold due to BAMBI 8. Hypothyroidism: on synthroid 9. Anxiety, depression and bipolar disordre: * on effexor. Being titrated down to 75mg bid due to renal impairment 10. Polysusbstance abuse: * urine tox positive for benzodiazepines, TCA and opiates. Working with us. 11. Morbid obesity: * counselled on diet and lifestyle changes. Nutrition consulted. 12. GERD: on PPI DVT prophylaxis: heparin This note was generated with [employer] dictation software. It may contain incorrect words, spelling, and punctuation that were not noted in checking the note before signing. Code Visit Inpatient E&M: 09099 Subs Hosp L3
[2018-03-22 12:44] LABS: Absolute Neutrophil Count 9.5 X10^3/uL (2.0-7.7); Basophil# 0.02 X10^3/uL; Basophil% 0.2 % (0-1); Eosinophil# 0.11 X10^3/uL; Eosinophils% 0.9 % (0-5); Hematocrit 34.7 % (37-47); Hemoglobin 12.1 g/dl (12.0-15.0); Lymphocyte % 14.1 % (19-41); Mean Corp Hgb Conc 34.9 g/gl (32-36); Mean Corpuscular Hgb 33.1 pg (27.0-32.0); Mean Corpuscular Volume 94.8 fL (81-99); Mean Platelet Vol. 10.1 fl (6.2-12.0); Monocyte# 0.66 X10^3/uL; Monocyte% 5.5 % (0-10); Neutrophil # 9.52 X10^3/uL (2.7-7.7); Neutrophil % 79.1 % (47-70); Platelet Count 231 K/mm3 (150-450); RBC Distribution Width CV 12.9 % (11.6-14.6); RBC Distribution Width SD 43.4 fl (35.1-43.9); Red Blood Count 3.66 M/mm3 (4.2-5.4)
[2018-03-22 12:46] LABS: POSITIVE COUNT NO; POSITIVE DIFFERENTIAL NO; POSITIVE MORPHOLOGY NO
[2018-03-22 12:57] LABS: ALB/GLOB Ratio 0.9 RATIO (0.9-2.4); AST(SGOT) 44 U/L (15-37); Alanine Aminotransfer ALT/SGPT 35 U/L (13-56); Albumin, Serum 3.1 g/dL (3.2-5.0); Alkaline Phosphatase 56 U/L (45-117); Anion Gap 14 (5-15); BUN 37 mg/dL (7-18); BUN/Creat Ratio 8.5 RATIO (10-20); CPK Total, Creatine Kinase 667 U/L (26-192); Calcium,Total 8.9 mg/dL (8.5-10.1); Chloride 87 mmol/L (98-107); Creatinine, Serum 4.33 mg/dL (0.55-1.02); EST Glomerular Filtration Rate 12 mL/min (>60); Est Glom Filt Rate - Afr Amer 14 mL/min (>60); Estimated Creatinine Clearance 17.93 ml/min; Globulin 3.6 g/dL (2.2-4.2); Glucose 230 mg/dL (74-106); Magnesium 1.5 mg/dL (1.6-2.6); Phosphorus 4.9 mg/dL (2.5-4.9); Potassium 4.5 mmol/L (3.5-5.1); Protein, Total 6.7 g/dL (6.4-8.2); Sodium Level 126 mmol/L (136-145)
[2018-03-22 12:59] LABS: Osmolality, Serum 273 mOsm/KG (275-295)
[2018-03-22 16:55] LABS: Bedside Glucose 214 mg/dL (70-110)
--- NOTE | 2018-03-22 17:24 | EKG12_ITS ---
Test Reason : CP Blood Pressure : / mmHG Vent. Rate : 098 BPM Atrial Rate : 098 BPM P-R Int : 174 ms QRS Dur : 112 ms QT Int : 426 ms P-R-T Axes : 027 065 054 degrees QTc Int : 543 ms Normal sinus rhythm Low voltage QRS Nonspecific T wave abnormality Confirmed by OSITO PRESSLEY, RETA ([id number]), editor producer DANILO NORMAN ([id number]) on 03/25/2018 11:31:08 AM Referred By: DAVIN HYMAN Confirmed By:RETA MCNEILL MD
[2018-03-22] MEDS: 0.9% NaCl Peripheral Flush Adult/Peds IV ×2 (20:58→23:37)
[2018-03-22] MEDS: Amitriptyline 100 MG Tablet PO (21:24)
[2018-03-22 22:40] LABS: Bedside Glucose 175 mg/dL (70-110)
[2018-03-23] VITALS (7 sets, daily range): BP systolic 118–138; BP diastolic 71–88; PULSE 88–108; RESP 18; TEMP 36.6–37; O2SAT 95–96
[2018-03-23] MEDS: 0.9% NaCl Peripheral Flush Adult/Peds IV ×2 (00:01→06:03)
[2018-03-23] MEDS: 0.9% Normal Saline 1,000 ML 150 ML IV ×2 (03:01→11:07)
[2018-03-23] MEDS: Heparin Injection (Vial) 5,000 UNIT/ML VIAL 5000 UNIT SC (06:00)
[2018-03-23] MEDS: Levothyroxine 100 MCG Tablet 300 MCG PO (06:00)
[2018-03-23 06:15] LABS: Bedside Glucose 224 mg/dL (70-110)
[2018-03-23] MEDS: Insulin Lispro 100 UNIT/ML INSULN.PEN SC (08:15)
--- NOTE | 2018-03-23 10:28 | CASEMGMT ---
Face to Face with patient for initial transition planning/care coordination assessment. YASEMIN CRAIN introduced self and role at [facility], pt voices understanding and consents to assessment at this time. Pt is lying in bed in no distress at this time. Pt is A/O x4 at this time and answers all questions appropriately at this time. Care providers, pharmacy, and demographics verified. See attached link. Pt voices no further concerns/needs at this time. Advised pt to ask for CM if any further questions/concerns/needs arise, voices understanding. PLAN: [place] YASEMIN CRAIN
[2018-03-23] MEDS: Topiramate 100 MG Tablet PO (11:09)
[2018-03-23] MEDS: Venlafaxine HCl 75 MG Tablet PO (11:09)
[2018-03-23] MEDS: Pantoprazole Sodium 20 MG Tablet PO (11:09)
[2018-03-23 11:50] LABS: Absolute Lymphocyte Count 1.51 X10^3/ul (0.83-4.51); Absolute Neutrophil Count 11.4 X10^3/uL (2.0-7.7); Basophil# 0.01 X10^3/uL; Basophil% 0.1 % (0-1); Hematocrit 37.8 % (37-47); Hemoglobin 13.1 g/dl (12.0-15.0); Lymphocyte # 1.51 X10^3/ul (4.0); Lymphocyte % 11.2 % (19-41); Mean Corp Hgb Conc 34.7 g/gl (32-36); Mean Corpuscular Hgb 32.9 pg (27.0-32.0); Mean Platelet Vol. 10.3 fl (6.2-12.0); Monocyte# 0.54 X10^3/uL; Neutrophil # 11.43 X10^3/uL (2.7-7.7); Neutrophil % 84.5 % (47-70); Platelet Count 275 K/mm3 (150-450); RBC Distribution Width CV 13.1 % (11.6-14.6); RBC Distribution Width SD 43.8 fl (35.1-43.9); Red Blood Count 3.98 M/mm3 (4.2-5.4); White Blood Count 13.5 K/mm3 (4.4-11.0)
[2018-03-23 11:51] LABS: POSITIVE COUNT NO; POSITIVE DIFFERENTIAL NO; POSITIVE MORPHOLOGY NO
[2018-03-23 12:02] LABS: ALB/GLOB Ratio 0.7 RATIO (0.9-2.4); AST(SGOT) 34 U/L (15-37); Alanine Aminotransfer ALT/SGPT 32 U/L (13-56); Alkaline Phosphatase 63 U/L (45-117); Anion Gap 8 (5-15); BUN 22 mg/dL (7-18); BUN/Creat Ratio 12.9 RATIO (10-20); CPK Total, Creatine Kinase 293 U/L (26-192); Calcium,Total 8.9 mg/dL (8.5-10.1); Chloride 102 mmol/L (98-107); EST Glomerular Filtration Rate 35 mL/min (>60); Est Glom Filt Rate - Afr Amer 42 mL/min (>60); Estimated Creatinine Clearance 45.67 ml/min; Globulin 4.4 g/dL (2.2-4.2); Glucose 241 mg/dL (74-106); Potassium 4.5 mmol/L (3.5-5.1); Protein, Total 7.4 g/dL (6.4-8.2); Sodium Level 134 mmol/L (136-145)
--- NOTE | 2018-03-23 12:44 | PCM.DC ---
- Discharge Diagnoses Current Active Problems: Current Active and Chronic Problems (Last Reviewed 03/11/18 @ 14:52 by Merle Kaplan) Morbid obesity (Chronic) Rhabdomyolysis (Acute) Migraine aura, persistent (Acute) Chronic pain syndrome (Chronic) You will use the following diet at home:: Calorie/Carbohydrate Controlled (specify 1200, 1400, etc) - 1800 mendel / day, Cardiac Your food should be the consistency of: Regular Your liquids should be the consistency of: Regular/Thin Discharge Activity: Return to Normal Activity Pending Tests on Discharge: BMP 5 days Allergies/Adverse Reactions: Allergies hydroxyzine [From Atarax] Allergy (Verified 03/11/18 14:52) Hives Sulfa (Sulfonamide Antibiotics) Allergy (Verified 03/11/18 14:52) Hives raspberry Adverse Reaction (Verified 03/11/18 14:52) Other migarine Medications to take at Discharge Levothyroxine Sodium [Synthroid] 300 mcg PO DAILY 10/16/15 Omeprazole [Prilosec] 40 mg PO DAILY 10/16/15 Topiramate [Topamax] 100 mg PO BID 10/16/15 Venlafaxine XR [Effexor Xr] 150 mg PO BID 10/16/15 Morphine Sulfate [Morphine Sulfate ER] 30 mg PO TID 11/07/15 Oxycodone HCl/Acetaminophen [Percocet 10-325 mg Tablet] 1 tab PO Q6H PRN PRN 11/07/15 blood sugar diagnostic strips See Dose Instructions .ROUTE .MEDSUPPLY #100 10/15/17 blood-glucose meter kit See Dose Instructions .ROUTE .MEDSUPPLY #1 10/15/17 lancets 28 gauge See Dose Instructions .ROUTE .MEDSUPPLY #100 10/15/17 lidocaine 5 % topical ointment 1 applic TOPICAL BID-QID PRN 10/15/17 oxybutynin chloride 5 mg tablet 5 mg PO TID 10/15/17 Acyclovir 200 mg PO 5X/DAY PRN 01/18/18 Tizanidine HCl [Zanaflex] 4 mg PO TID 01/18/18 amitriptyline 100 mg tablet 100 mg PO QHS tab 02/19/18 glimepiride 2 mg tablet 2 mg PO QAM #90 tab 02/19/18 hydrochlorothiazide 12.5 mg capsule 12.5 mg PO QAM #90 cap 02/19/18 lisinopril 10 mg tablet 20 mg PO QDAY #90 tab 02/19/18 zolpidem 5 mg tablet 5 mg PO QHS PRN #10 tab 02/19/18 dulaglutide 0.75 mg/0.5 mL subcutaneous pen injector 0.75 mg SC QWEEK #2 ml 03/11/18 Primary Care Physician: Megha Hand MD [Primary Care Provider] - Please follow up with your Primary Care Physician in: 1 week Test Results: Test results from this visit will be discussed in further detail at your follow-up appointment, if applicable. Please Follow Up With: Tangela Garcia DO When: 1-2 weeks Proposed Discharge Date: 03/23/18
--- NOTE | 2018-03-23 12:46 | PCM.DC.SUM ---
<Reese Urena - Last Filed: 03/23/18 12:46> Discharge Date and Diagnosis Date of Admission: 03/22/18 Date of Discharge: 03/23/18 - Primary Discharge Diagnosis Active and Suspected Problems (Last Reviewed 03/11/18 @ 14:52 by Merle Edita Kaplan) Rhabdomyolysis (Acute) Migraine aura, persistent (Acute) BAMBI Acute toxic/metabolic encephalopathy 2/2 BAMBI and medication overdose HHS, DMt2 Chronic pain syndrome Hypothyroidism Anx/depresions/Bipolar disorder Polysubstance abuse Morbid obesity GERD - Secondary Discharge Diagnosis Chronic Problems (Last Reviewed 03/11/18 @ 14:52 by Merle Edita Kaplan) Morbid obesity (Chronic) Chronic pain syndrome (Chronic) Insomnia (Chronic) Seasonal allergies (Chronic) Anxiety and depression (Chronic) Back problem (Chronic) Carpal tunnel syndrome (Chronic) Diabetes type 2, uncontrolled (Chronic) Frequent headaches (Chronic) HTN (hypertension) (Chronic) Fatty liver (Chronic) GERD (gastroesophageal reflux disease) (Chronic) Thyroid disease (Chronic) Fibromyalgia (Chronic) Diabetes mellitus (Chronic) Discussed with patient need to check BG consistently and routinely. Showed her how to check correctly along side of finger and how to improve chances of getting blood sample on low dial. She may be a candidate for [employer] system,depending on insurance. We discussed importance of routine care and following medication plan. Her level of anxiety significantly reduce by end of appointment. Instructed to check BG in pairs over the next several days . Will obtain medical records Hospital Course and Treatment Imaging Results: US/Kidney and Bladder IMPRESSION: Allowing for patient's condition there is somewhat of a high bladder residual. 3 mm stone right kidney no evidence of hydronephrosis. Operations: None Procedures: None Summary of Care Provided: Physical Exam on day of discharge: General: Resting comfortably NAD Psych: A/Ox3 normal affect HEENT: PEARRLA AT NC Neck: Supple NT CV: RRR no m/t/r/g/h Resp: CTA Abd: [id number] Soft NT no guarding or rigidity, morbidly obese Ext: DP2+= no edema Skin: W/D normal turgor Lymph/Heme: No active bleeding or adenopathy Neuro: CN2-12 intact Hospital Course: The patient is a 42 year old F with a hx of chronic pain syndrome, bipolar, anxiety, DMt2, morbid obesity, migrraine, htn, hypothyroidism, GERD, who presented from [facility] with migraine, confusion, generalized pain, photophobia, phonophobia similar to past migraines. She was transferred for direct admission. She was intermittently confused and did admit to taking additional doses of some of her medications. She is on multiple sedating medications. She was found to have elevataed CPK c/w rhabdo, BAMBI, and glucose 326 with low Na felt to be 2/2 elevated glucose. She was given zofran, benazdry, decadron, insulin, topamax, depakote. Nephrotoxic medications were held. Home sedating medications were held. She was kept on the PCU. IV hydration was provided. Her symptoms were controlled, and her creatinine trended down from 4.33 to 1.70. Electrolytes stabilized. CK improved 5o 293. Troponins remained negative. Mental status improved. She was discharged home in stable condition. She will need to resume her sedating medications with caution. Please follow up with your PCP in 1 week. Please follow up with Dr. Garcia from nephrology in 1-2 weeks. I have ordered a BMP for 5 days to assess her renal function. Pt seen by Reese Urena PA-C under the supervision of Dr. Diaz. [] Discharge Diet: Low fat/ Low Cholesterol, 1800 Calorie Control Diet, 2000 mg Sodium Diet Discharge Activity: Return to Normal Activity Home Medications: Medications to take at Discharge Levothyroxine Sodium [Synthroid] 300 mcg PO DAILY 10/16/15 Omeprazole [Prilosec] 40 mg PO DAILY 10/16/15 Topiramate [Topamax] 100 mg PO BID 10/16/15 Venlafaxine XR [Effexor Xr] 150 mg PO BID 10/16/15 Morphine Sulfate [Morphine Sulfate ER] 30 mg PO TID 11/07/15 Oxycodone HCl/Acetaminophen [Percocet 10-325 mg Tablet] 1 tab PO Q6H PRN PRN 11/07/15 blood sugar diagnostic strips See Dose Instructions .ROUTE .MEDSUPPLY #100 ea 10/15/17 blood-glucose meter kit See Dose Instructions .ROUTE .MEDSUPPLY #1 ea 10/15/17 lancets 28 gauge See Dose Instructions .ROUTE .MEDSUPPLY #100 ea 10/15/17 lidocaine 5 % topical ointment 1 applic TOPICAL BID-QID PRN 10/15/17 oxybutynin chloride 5 mg tablet 5 mg PO TID 10/15/17 Acyclovir 200 mg PO 5X/DAY PRN 01/18/18 Tizanidine HCl [Zanaflex] 4 mg PO TID 01/18/18 amitriptyline 100 mg tablet 100 mg PO QHS tab 02/19/18 glimepiride 2 mg tablet 2 mg PO QAM #90 tab 02/19/18 hydrochlorothiazide 12.5 mg capsule 12.5 mg PO QAM #90 cap 02/19/18 lisinopril 10 mg tablet 20 mg PO QDAY #90 tab 02/19/18 zolpidem 5 mg tablet 5 mg PO QHS PRN #10 tab 02/19/18 dulaglutide 0.75 mg/0.5 mL subcutaneous pen injector 0.75 mg SC QWEEK #2 ml 03/11/18 Primary Care Physician: Megha Hand MD [Primary Care Provider] - Please follow up with your Primary Care Physician in: 1 week Please Follow Up With: Tangela Garcia DO When: 1-2 weeks Disposition: Home Minutes spent on discharge:: 35 Patient Condition:: Stable Medical Necessity - Tobacco Use Smoking Status: Former smoker Tobacco Use: Non-smoker Meaningful Use Info Meaningful Use Diagnoses (Choose all that apply): None applicable <Karen Diaz - Last Filed: 03/23/18 15:35> Discharge Date and Diagnosis - Secondary Discharge Diagnosis Chronic Problems (Last Reviewed 03/11/18 @ 14:52 by Merle Kaplan) Morbid obesity (Chronic) Chronic pain syndrome (Chronic) Insomnia (Chronic) Seasonal allergies (Chronic) Anxiety and depression (Chronic) Back problem (Chronic) Carpal tunnel syndrome (Chronic) Diabetes type 2, uncontrolled (Chronic) Frequent headaches (Chronic) HTN (hypertension) (Chronic) Fatty liver (Chronic) GERD (gastroesophageal reflux disease) (Chronic) Thyroid disease (Chronic) Fibromyalgia (Chronic) Diabetes mellitus (Chronic) Discussed with patient need to check BG consistently and routinely. Showed her how to check correctly along side of finger and how to improve chances of getting blood sample on low dial. She may be a candidate for [facility] system,depending on insurance. We discussed importance of routine care and following medication plan. Her level of anxiety significantly reduce by end of appointment. Instructed to check BG in pairs over the next several days . Will obtain medical records Hospital Course and Treatment Summary of Care Provided: Patient seen and examined by Reese Urena PA-C under my supervision The patient is a 42 year old F admitted from [facility] with a history of ongoing frontal migraine headache with associated photophobia and phonophobia as well as vertigo. Headache had improved upon admission [facility]. CT of the head was negative at [facility]. Patient was really able to give a clear history on admission to [facility] as she was quite confused. Labs done at [facility] showed elevated creatinine of around 5 elevated creatinine kinase in the 700s and glucose of 326 with low sodium. She was admitted and managed for migraine headache and AK I likely prerenal as well as metabolic encephalopathy thought to have been medication induced from taking multiple doses of her narcotic meds.. She was treated with IV fluids, Benadryl and Decadron and given insulin. Her nephrotoxic medications were held. Creatinine trended down from 5 and outside hospital to 4.3 when admitted he had down to 1.7 on day of discharge. Creatinine kinase was 970 at [facility] and trended down significantly on day of discharge to 293. Sodium increased from 126 on admission to 134 with demonstration of IV fluids. Also had mild hypomagnesemia of 1.5 which was replaced. She remained stable and acute metabolic encephalopathy resolved. She was discharged home on 03/23/2018. She is to follow-up with her primary care doctor for management of her pain medication and referral to pain management, and she already does not see one. Is to follow-up with nephrology in 1-2 weeks and she is also to check a BMP in 5 days to assess her renal function. Patient seen and examined prior to discharge. o/e: Vital Signs Height 5 ft 10 in Weight: 365 lb 4.895 oz Weight in Pounds 365.3 lbs Pulse Ox 96 Temperature 98.0 F Pulse Rate 88 Respiratory Rate 18 Blood Pressure 118/72 Blood Pressure Position Semi-Fowlers []General: Alert, Cooperative, Confused - AO x 3 Oral: Moist Mucosa Neck: Supple, No JVD, Negative Carotid Bruits Lungs: Clear to auscultation, Normal air movement Cardiovascular: Regular rate, Regular Rhythm, Normal S1, Normal S2, No murmurs Abdomen: Bowel Sounds Present, Soft, Non Tender, Non-Distended, No Hepato-splenomegaly, Obese, - - infraumbilical longitudinal well healed surgical scar Extremities: No clubbing, No cyanosis, No edema, Capillary Refill Less than 3 Seconds Skin: No rashes, No breakdown Musculoskeletal: No Tenderness to Palpation of Joints or Extremities Lymphatic: No Cervical, Supraclavicular, or Inguinal Adenopathy Neurological: Cranial nerves II-XII grossly intact, Motor Exam 5/5 strength throughout Psych/Mental Status: - -normal and appropriate Plan as documented above. This note was generated with [employer] dictation software. It may contain incorrect words, spelling, and punctuation that were not noted in checking the note before signing. Code Visit Inpatient E&M: 21879 [facility]
--- NOTE | 2018-03-23 12:59 | DS.PCM_ITS ---
<Reese Urena - Last Filed: 03/23/18 12:46> Discharge Date and Diagnosis Date of Admission: 03/22/18 Date of Discharge: 03/23/18 - Primary Discharge Diagnosis Active and Suspected Problems (Last Reviewed 03/11/18 @ 14:52 by Merle Edita Kaplan ) Rhabdomyolysis (Acute) Migraine aura, persistent (Acute) BAMBI Acute toxic/metabolic encephalopathy 2/2 BAMBI and medication overdose HHS, DMt2 Chronic pain syndrome Hypothyroidism Anx/depresions/Bipolar disorder Polysubstance abuse Morbid obesity GERD - Secondary Discharge Diagnosis Chronic Problems (Last Reviewed 03/11/18 @ 14:52 by Merle Edita Kaplan) Morbid obesity (Chronic) Chronic pain syndrome (Chronic) Insomnia (Chronic) Seasonal allergies (Chronic) Anxiety and depression (Chronic) Back problem (Chronic) Carpal tunnel syndrome (Chronic) Diabetes type 2, uncontrolled (Chronic) Frequent headaches (Chronic) HTN (hypertension) (Chronic) Fatty liver (Chronic) GERD (gastroesophageal reflux disease) (Chronic) Thyroid disease (Chronic) Fibromyalgia (Chronic) Diabetes mellitus (Chronic) Discussed with patient need to check BG consistently and routinely. Showed her how to check correctly along side of finger and how to improve chances of getting blood sample on low dial. She may be a candidate for [employer] system, depending on insurance. We discussed importance of routine care and following medication plan. Her level of anxiety significantly reduce by end of appointment. Instructed to check BG in pairs over the next several days . Will obtain medical records Hospital Course and Treatment Imaging Results: US/Kidney and Bladder IMPRESSION: Allowing for patient's condition there is somewhat of a high bladder residual. 3 mm stone right kidney no evidence of hydronephrosis. Operations: None Procedures: None Summary of Care Provided: Physical Exam on day of discharge: General: Resting comfortably NAD Psych: A/Ox3 normal affect HEENT: PEARRLA AT NC Neck: Supple NT CV: RRR no m/t/r/g/h Resp: CTA Abd: [id number] Soft NT no guarding or rigidity, morbidly obese Ext: DP2+= no edema Skin: W/D normal turgor Lymph/Heme: No active bleeding or adenopathy Neuro: CN2-12 intact Hospital Course: The patient is a 42 year old F with a hx of chronic pain syndrome, bipolar, anxiety, DMt2, morbid obesity, migrraine, htn, hypothyroidism, GERD, who presented from [facility] with migraine, confusion, generalized pain, photophobia, phonophobia similar to past migraines. She was transferred for direct admission. She was intermittently confused and did admit to taking additional doses of some of her medications. She is on multiple sedating medications. She was found to have elevataed CPK c/w rhabdo, BAMBI, and glucose 326 with low Na felt to be 2/2 elevated glucose. She was given zofran, benazdry , decadron, insulin, topamax, depakote. Nephrotoxic medications were held. Home sedating medications were held. She was kept on the PCU. IV hydration was provided. Her symptoms were controlled, and her creatinine trended down from 4.33 to 1.70. Electrolytes stabilized. CK improved 5o 293. Troponins remained negative. Mental status improved. She was discharged home in stable condition. She will need to resume her sedating medications with caution. Please follow up with your PCP in 1 week. Please follow up with Dr. Garcia from nephrology in 1-2 weeks. I have ordered a BMP for 5 days to assess her renal function. Pt seen by Reese Urena PA-C under the supervision of Dr. Diaz. [] Discharge Diet: Low fat/ Low Cholesterol, 1800 Calorie Control Diet, 2000 mg Sodium Diet Discharge Activity: Return to Normal Activity Home Medications: Medications to take at Discharge Levothyroxine Sodium [Synthroid] 300 mcg PO DAILY 10/16/15 Omeprazole [Prilosec] 40 mg PO DAILY 10/16/15 Topiramate [Topamax] 100 mg PO BID 10/16/15 Venlafaxine XR [Effexor Xr] 150 mg PO BID 10/16/15 Morphine Sulfate [Morphine Sulfate ER] 30 mg PO TID 11/07/15 Oxycodone HCl/Acetaminophen [Percocet 10-325 mg Tablet] 1 tab PO Q6H PRN PRN blood sugar diagnostic strips See Dose Instructions .ROUTE .MEDSUPPLY #100 ea blood-glucose meter kit See Dose Instructions .ROUTE .MEDSUPPLY #1 ea 10/15/17 lancets 28 gauge See Dose Instructions .ROUTE .MEDSUPPLY #100 ea 10/15/17 lidocaine 5 % topical ointment 1 applic TOPICAL BID-QID PRN 10/15/17 oxybutynin chloride 5 mg tablet 5 mg PO TID 10/15/17 Acyclovir 200 mg PO 5X/DAY PRN 01/18/18 Tizanidine HCl [Zanaflex] 4 mg PO TID 01/18/18 amitriptyline 100 mg tablet 100 mg PO QHS tab 02/19/18 glimepiride 2 mg tablet 2 mg PO QAM #90 tab 02/19/18 hydrochlorothiazide 12.5 mg capsule 12.5 mg PO QAM #90 cap 02/19/18 lisinopril 10 mg tablet 20 mg PO QDAY #90 tab 02/19/18 zolpidem 5 mg tablet 5 mg PO QHS PRN #10 tab 02/19/18 dulaglutide 0.75 mg/0.5 mL subcutaneous pen injector 0.75 mg SC QWEEK #2 ml Primary Care Physician: Megha Hand MD [Primary Care Provider] - Please follow up with your Primary Care Physician in: 1 week Please Follow Up With: Tangela Garcia DO When: 1-2 weeks Disposition: Home Minutes spent on discharge:: 35 Patient Condition:: Stable Medical Necessity - Tobacco Use Smoking Status: Former smoker Tobacco Use: Non-smoker Meaningful Use Info Meaningful Use Diagnoses (Choose all that apply): None applicable <Karen Diaz - Last Filed: 03/23/18 15:35> Discharge Date and Diagnosis - Secondary Discharge Diagnosis Chronic Problems (Last Reviewed 03/11/18 @ 14:52 by Merle Kaplan) Morbid obesity (Chronic) Chronic pain syndrome (Chronic) Insomnia (Chronic) Seasonal allergies (Chronic) Anxiety and depression (Chronic) Back problem (Chronic) Carpal tunnel syndrome (Chronic) Diabetes type 2, uncontrolled (Chronic) Frequent headaches (Chronic) HTN (hypertension) (Chronic) Fatty liver (Chronic) GERD (gastroesophageal reflux disease) (Chronic) Thyroid disease (Chronic) Fibromyalgia (Chronic) Diabetes mellitus (Chronic) Discussed with patient need to check BG consistently and routinely. Showed her how to check correctly along side of finger and how to improve chances of getting blood sample on low dial. She may be a candidate for [employer] system, depending on insurance. We discussed importance of routine care and following medication plan. Her level of anxiety significantly reduce by end of appointment. Instructed to check BG in pairs over the next several days . Will obtain medical records Hospital Course and Treatment Summary of Care Provided: Patient seen and examined by Reese Urena PA-C under my supervision The patient is a 42 year old F admitted from [facility] with a history of ongoing frontal migraine headache with associated photophobia and phonophobia as well as vertigo. Headache had improved upon admission [facility] [place]. CT of the head was negative at [facility]. Patient was really able to give a clear history on admission to [facility] as she was quite confused. Labs done at [facility] showed elevated creatinine of around 5 elevated creatinine kinase in the 700s and glucose of 326 with low sodium. She was admitted and managed for migraine headache and AK I likely prerenal as well as metabolic encephalopathy thought to have been medication induced from taking multiple doses of her narcotic meds.. She was treated with IV fluids, Benadryl and Decadron and given insulin. Her nephrotoxic medications were held. Creatinine trended down from 5 and outside hospital to 4.3 when admitted he had down to 1.7 on day of discharge. Creatinine kinase was 970 at [facility] and trended down significantly on day of discharge to 293. Sodium increased from 126 on admission to 134 with demonstration of IV fluids. Also had mild hypomagnesemia of 1.5 which was replaced. She remained stable and acute metabolic encephalopathy resolved. She was discharged home on 03/23/2018. She is to follow -up with her primary care doctor for management of her pain medication and referral to pain management, and she already does not see one. Is to follow-up with nephrology in 1-2 weeks and she is also to check a BMP in 5 days to assess her renal function. Patient seen and examined prior to discharge. o/e: Vital Signs Height 5 ft 10 in Weight: 365 lb 4.895 oz Weight in Pounds 365.3 lbs Pulse Ox 96 Temperature 98.0 F Pulse Rate 88 Respiratory Rate 18 Blood Pressure 118/72 Blood Pressure Position Semi-Fowlers []General: Alert, Cooperative, Confused - AO x 3 Oral: Moist Mucosa Neck: Supple, No JVD, Negative Carotid Bruits Lungs: Clear to auscultation, Normal air movement Cardiovascular: Regular rate, Regular Rhythm, Normal S1, Normal S2, No murmurs Abdomen: Bowel Sounds Present, Soft, Non Tender, Non-Distended, No Hepato- splenomegaly, Obese, - - infraumbilical longitudinal well healed surgical scar Extremities: No clubbing, No cyanosis, No edema, Capillary Refill Less than 3 Seconds Skin: No rashes, No breakdown Musculoskeletal: No Tenderness to Palpation of Joints or Extremities Lymphatic: No Cervical, Supraclavicular, or Inguinal Adenopathy Neurological: Cranial nerves II-XII grossly intact, Motor Exam 5/5 strength throughout Psych/Mental Status: - -normal and appropriate Plan as documented above. This note was generated with [employer] dictation software. It may contain incorrect words, spelling, and punctuation that were not noted in checking the note before signing. Code Visit Inpatient E&M: [id number] [facility]
[2018-03-25 15:30] LABS: Bedside Glucose 282 mg/dL (70-110)
--- NOTE | 2018-03-26 22:46 | PCM.PN.BLA ---
Progress Note consult not seen in hospital. I was not notified of the consult. Pt name discovered on my discharge list.
== END 2018-03-23 12:44 | disposition home or self-care (01) | DRG 248 ==
PROVIDERS: Admitting Provider Family Medicine; Family Provider Internal Medicine; PCP Internal Medicine; Visit Provider Student in an Organized Health Care Education/Training Program
DX: M62.82 Rhabdomyolysis (principal); G92 Toxic encephalopathy; N17.9 Acute kidney failure, unspecified; E11.65 Type 2 diabetes mellitus with hyperglycemia; T50.901A Poisoning by unspecified drugs, medicaments and biological substances, accidental (unintentional), initial encounter; E66.01 Morbid (severe) obesity due to excess calories; Z68.43 Body mass index [BMI] 50.0-59.9, adult; Z71.3 Dietary counseling and surveillance; K21.9 Gastro-esophageal reflux disease without esophagitis; F41.9 Anxiety disorder, unspecified; G43.511 Persistent migraine aura without cerebral infarction, intractable, with status migrainosus; G89.4 Chronic pain syndrome; Z87.891 Personal history of nicotine dependence; E03.9 Hypothyroidism, unspecified; M79.7 Fibromyalgia; F31.9 Bipolar disorder, unspecified; I10 Essential (primary) hypertension; E83.42 Hypomagnesemia; E78.5 Hyperlipidemia, unspecified
CPT/HCPCS: 76770; 80053; 82550; 82570; 82962; 83735; 83930; 84100; 84300; 84484; 85025; 93005; 97802; J7030; A4216

== ENCOUNTER → 2018-03-30 13:25 | Outpatient (CLI) | payer MEDICAID, SELFPAY ==
[2018-03-30 15:20] LABS: Anion Gap 12 (5-15); BUN 7 mg/dL (7-18); BUN/Creat Ratio 5.4 RATIO (10-20); Calcium,Total 8.9 mg/dL (8.5-10.1); Chloride 96 mmol/L (98-107); Creatinine, Serum 1.29 mg/dL (0.55-1.02); EST Glomerular Filtration Rate 48 mL/min (>60); Est Glom Filt Rate - Afr Amer 58 mL/min (>60); Glucose 119 mg/dL (74-106); Potassium 3.1 mmol/L (3.5-5.1); Sodium Level 135 mmol/L (136-145)
== END ==
PROVIDERS: Family Provider Internal Medicine; PCP Internal Medicine; Visit Provider Physician Assistant
DX: N17.9 Acute kidney failure, unspecified (principal)
CPT/HCPCS: 36415; 80048

== ENCOUNTER → 2018-04-19 14:55 | Outpatient (CLI) | payer MEDICAID, SELFPAY ==
[2018-04-19 16:02] LABS: Anion Gap 13 (5-15); BUN 15 mg/dL (7-18); BUN/Creat Ratio 9.4 RATIO (10-20); Calcium,Total 9.7 mg/dL (8.5-10.1); Chloride 98 mmol/L (98-107); EST Glomerular Filtration Rate 37 mL/min (>60); Est Glom Filt Rate - Afr Amer 45 mL/min (>60); Glucose 182 mg/dL (74-106); Magnesium 1.9 mg/dL (1.6-2.6); Potassium 3.8 mmol/L (3.5-5.1); Sodium Level 138 mmol/L (136-145)
== END ==
PROVIDERS: Family Provider Internal Medicine; PCP Internal Medicine; Visit Provider Internal Medicine
DX: E11.65 Type 2 diabetes mellitus with hyperglycemia (principal); E87.6 Hypokalemia; E83.42 Hypomagnesemia
CPT/HCPCS: 36415; 80048; 83735

== ENCOUNTER 2018-04-27 09:53 | Inpatient (IN) | payer MEDICAID, SELFPAY ==
[2018-04-27] VITALS (9 sets, daily range): BP systolic 75–143; BP diastolic 47–97; PULSE 60–102; RESP 14–20; TEMP 36.6–36.8; O2SAT 91–100; BMI 51.9; BMI 55.3; BMI 55.4
--- NOTE | 2018-04-27 10:23 | ED.VISSUMM ---
- ER Visit Summary Date of Service: 04/27/18 Chief Complaint: I think my kidneys are shutting down History of Present Illness: The patient is a 42 F history of insulin-dependent diabetes, hypertension, high cholesterol, renal insufficiency. Patient has had multiple abdominal surgeries. States that she was admitted in March for renal insufficiency. States she is been unable to urinate since Friday. Denies vomiting. No diarrhea. No fever. No dysuria. No gross hematuria. Physical Examination: Vital signs are stable and afebrile. H EENT exam dry mixed membranes. Neck nontender no lymphadenopathy. Lungs clear to auscultation bilaterally. Heart regular rhythm no murmur. Abdomen morbidly obese but soft no peritoneal signs. She is moving all 4 extremities. The neurovascular intact. No significant edema. Neurologically she is awake alert no focal motor deficits. Back is nontender. Test Results: She has an elevated white count 18,912 and 36. No bands. Her sodium is 128 her chloride is 94 and CO2 is 19. Gap 15. BUN 24 creatinine 3.94. 8 days ago was 1.6. For an acute renal injury. She is actually had creatinines worse and is still in the past of 4.6. Liver and lipase are normal. UA is negative. Emergency Department Course and Treatment: Labs and bladder scan will be obtained. 1 L normal saline wide open Patient had a bladder scan done showed a volume of 694 cc a year and therefore Hernandez catheter was placed. Clear yellow urine was seen in the Hernandez catheter. Treatment Plan: Hospitalist on page for admission. Disposition: Admission Impression: Acute renal insufficiency Acute urinary retention Leukocytosis of uncertain etiology History of insulin-dependent diabetes This note was generated with [employer] dictation software. It may contain incorrect words, spelling, and punctuation that were not noted in review of the chart prior to signing ED Disposition - Plan for ED Patient: Chief Complaint: Complaint Referrals: Megha Hand MD [Primary Care Provider] -
[2018-04-27] MEDS: Ondansetron 4 MG/2 ML Vial IV (11:08)
--- NOTE | 2018-04-27 11:09 | ED.RN ---
SCANNED BLADDER, 694 SHOWN. PT REFUSES CATH. DR ARROYO MADE AWARE. PT IS NOT ABLE TO FOCUS AND FOLLOW DIRECTIONS. PT APPEARS TO BE INTOXICATED BY SOME SUBSTANCE THAT INHIBITS HER ABILITY TO MAKE SIMPLE CONVERSATION.
[2018-04-27 11:37] LABS: Mucous, Urine 0 SEEN /hpf (<or=2+); Red Blood Cells-Urine 0 SEEN /hpf (0-5); White Blood Cells 0 SEEN /hpf (0-5)
[2018-04-27 11:43] LABS: Color, Urine Yellow (Yellow); Glucose, Dipstick 50 mg/dl (Normal); Ketone-Dipstick Negative (Negative); Leukocyte Esterase-Dipstick Negative /ul (Negative); Nitrite-Dipstick Negative (Negative); Occult Blood-Urine Negative /ul (Negative); Protein-Dipstick 15 mg/dl (Negative); Urine Bilirubin Dipstick Negative (Negative); Urine Clarity Sl. Cloudy (Clear); Urine Urobilinogen Normal (Normal)
[2018-04-27 11:53] LABS: Bacteria 1+ /hpf (None Seen); Squamous Epithelial Cells - UA 0-5 SEEN /hpf (5-10)
[2018-04-27 12:00] LABS: Hematocrit 36.9 % (37-47); Hemoglobin 12.1 g/dl (12.0-15.0); Mean Corp Hgb Conc 32.8 g/gl (32-36); Mean Corpuscular Volume 100.5 fL (81-99); Platelet Count 272 K/mm3 (150-450); RBC Distribution Width CV 14.2 % (11.6-14.6); RBC Distribution Width SD 52.4 fl (35.1-43.9); Red Blood Count 3.67 M/mm3 (4.2-5.4); White Blood Count 18.9 K/mm3 (4.4-11.0)
[2018-04-27 12:18] LABS: AST(SGOT) 95 U/L (15-37); Alanine Aminotransfer ALT/SGPT 42 U/L (13-56); Albumin, Serum 3.8 g/dL (3.2-5.0); Alkaline Phosphatase 53 U/L (45-117); Anion Gap 15 (5-15); BUN 24 mg/dL (7-18); BUN/Creat Ratio 6.1 RATIO (10-20); Chloride 94 mmol/L (98-107); Creatinine, Serum 3.94 mg/dL (0.55-1.02); EST Glomerular Filtration Rate 13 mL/min (>60); Est Glom Filt Rate - Afr Amer 16 mL/min (>60); Globulin 4.1 g/dL (2.2-4.2); Glucose 189 mg/dL (74-106); Lipase 165 U/L (73-393); Protein, Total 7.9 g/dL (6.4-8.2); Sodium Level 128 mmol/L (136-145)
[2018-04-27 12:46] LABS: Basophil% 0.3 % (0-1); Eosinophils% 2.2 % (0-5); Monocyte% 3.4 % (0-10); Neutrophil % 77.5 % (47-70); POSITIVE COUNT NO; POSITIVE DIFFERENTIAL NO; POSITIVE MORPHOLOGY NO
[2018-04-27 12:47] LABS: Absolute Lymphocyte Count 3.05 X10^3/ul (0.83-4.51); Absolute Neutrophil Count 14.7 X10^3/uL (2.0-7.7); Basophil# 0.06 X10^3/uL; Eosinophil# 0.41 X10^3/uL; Lymphocyte # 3.05 X10^3/ul (4.0); Monocyte# 0.65 X10^3/uL; Neutrophil # 14.72 X10^3/uL (2.7-7.7)
--- NOTE | 2018-04-27 15:49 | NURSING ---
DR KNOWLES FOR DR RAROYO
--- NOTE | 2018-04-27 15:54 | NURSING ---
MED SURG ACUTE RENAL INJURY, URINARY RETENTION WHITE
--- NOTE | 2018-04-27 16:07 | PCM.HP.STD ---
Problem List (1) BAMBI (acute kidney injury) Status: Acute (2) Acute metabolic encephalopathy Status: Acute (3) Morbid obesity Status: Chronic (4) Urinary retention with incomplete bladder emptying Status: Chronic (5) Anxiety and depression Status: Chronic (6) HTN (hypertension) Status: Chronic (7) GERD (gastroesophageal reflux disease) Status: Chronic Qualifiers: (8) Thyroid disease Status: Chronic (9) Fibromyalgia Status: Chronic (10) Diabetes mellitus Status: Chronic Qualifiers: Diabetes mellitus type: type 2 Comment: Discussed with patient need to check BG consistently and routinely. Showed her how to check correctly along side of finger and how to improve chances of getting blood sample on low dial. She may be a candidate for [employer] system,depending on insurance. We discussed importance of routine care and following medication plan. Her level of anxiety significantly reduce by end of appointment. Instructed to check BG in pairs over the next several days . Will obtain medical records History of Present Illness Date of Admission: 04/27/18 Chief Complaint: urinary retention The patient is a 42 year old F with a hx of urinary retention, CKDIII, bipolar, DMt2, HTN, morbid obesity, hyponatremia, who presented to the ER with chief complaint of not being able to urinate for 3 days and feeling that her kidneys were shutting down. She has been seen by Dr. Garcia in the past for CKD. She was recently admitted with BAMBI and rhabdo. On exam in the ER she was very confused, initially lethargic and not able to focus her eyes and not answering quetsions appropriately, able to be roused verbally. Per her she was normal on first arriving to the ER, walked in on her own. She has BL lower abdominal pain, and BL flank pain. She has been nauseous, vomiting, and had some diarrhea, unclear how long. No fever or chills. She was cath'd in the ER, and retaining >600 cc. Muscle spasms began today. [] Past Medical History Past Medical History (Chronic Problems): Chronic Problems (Last Reviewed 04/22/18 @ 17:51 by Sofia Wong) Morbid obesity (Chronic) Chronic pain syndrome (Chronic) Urinary retention with incomplete bladder emptying (Chronic) Insomnia (Chronic) Seasonal allergies (Chronic) Anxiety and depression (Chronic) Back problem (Chronic) Carpal tunnel syndrome (Chronic) Diabetes type 2, uncontrolled (Chronic) Frequent headaches (Chronic) HTN (hypertension) (Chronic) Fatty liver (Chronic) GERD (gastroesophageal reflux disease) (Chronic) Thyroid disease (Chronic) Fibromyalgia (Chronic) Diabetes mellitus (Chronic) Discussed with patient need to check BG consistently and routinely. Showed her how to check correctly along side of finger and how to improve chances of getting blood sample on low dial. She may be a candidate for [employer] system,depending on insurance. We discussed importance of routine care and following medication plan. Her level of anxiety significantly reduce by end of appointment. Instructed to check BG in pairs over the next several days . Will obtain medical records Medical History: Medical History (Last Reviewed 04/22/18 @ 17:51 by Sofia Wong) MRSA (methicillin resistant Staphylococcus aureus) (Acute) A49.02 x3 Seasonal allergies (Chronic) J30.2 Anxiety and depression (Chronic) F41.8 Back problem (Chronic) M53.9 Carpal tunnel syndrome (Chronic) G56.00 Diabetes type 2, uncontrolled (Chronic) E11.65 Frequent headaches (Chronic) R51 HTN (hypertension) (Chronic) I10 Fatty liver (Chronic) K76.0 GERD (gastroesophageal reflux disease) (Chronic) K21.9 Thyroid disease (Chronic) E07.9 Fibromyalgia (Chronic) M79.7 Allergies hydroxyzine [From Atarax] Allergy (Verified 04/27/18 09:55) Hives Sulfa (Sulfonamide Antibiotics) Allergy (Verified 04/27/18 09:55) Hives raspberry Adverse Reaction (Verified 04/27/18 09:55) Other migarine Home Medications: Ambulatory Orders Medication Instructions Recorded Omeprazole [Prilosec] 40 mg PO DAILY 10/16/15 Topiramate [Topamax] 100 mg PO 5X/DAY 10/16/15 lidocaine 5 % topical ointment 1 applic TOPICAL BID-QID PRN 10/15/17 oxybutynin chloride 5 mg tablet 5 mg PO TID 10/15/17 Tizanidine HCl [Zanaflex] 4 mg PO TID 01/18/18 glimepiride 2 mg tablet 2 mg PO QAM #90 tab 02/19/18 hydrochlorothiazide 12.5 mg capsule 12.5 mg PO QAM #90 cap 02/19/18 amitriptyline 75 mg tablet 75 mg PO QHS #60 tab 04/06/18 venlafaxine ER 150 mg 150 mg PO BID cap 04/06/18 capsule,extended release 24 hr Atorvastatin Calcium [Lipitor] 40 mg PO QHS 04/27/18 Blood Sugar Diagnostic [Assure 0 x .ROUTE .MEDSUPPLY 04/27/18 Prism Multi] Cider Vinegar [Apple Cider Vinegar] 300 mg PO DAILY 04/27/18 Flash Glucose Scanning [place] 0 x .ROUTE .MEDSUPPLY 04/27/18 [Freestyle Yuliana [place]] Lancets 0 x .ROUTE .MEDSUPPLY 04/27/18 Lisinopril [Lisinopril] 20 mg PO DAILY 04/27/18 Multivit-Min/Iron/Folic/Lutein 1 tab PO DAILY 04/27/18 [Centrum Silver Women Tablet] Surgical History: Surgical History (Last Reviewed 04/22/18 @ 17:51 by Sofia Wong) H/O hernia repair Z98.890, Z87.19 H/O sinus surgery Z98.890 H/O thyroidectomy Z98.890, E89.0 H/O: Z98.891 History of incision and drainage Z98.890 Hx of appendectomy Z98.890, Z90.49 Hx of cholecystectomy Z98.890, Z90.49 S/P RUTH (total abdominal hysterectomy) Z90.710 S/P bronchoscopy Z98.890 cervical lymph node excision l toe surgery Surgical History: - - Hernia repair, sinus surgery, thyroidectomy, , appendectomy, cholecystectomy, RUTH, cervical lymph node resection. 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 Lives: Spouse/ Significant Other Smoking Status: Never smoker Tobacco Use: Non-smoker Alcohol: None Drugs: None - *Family History Maternal Family History: Family History (Last Reviewed 04/22/18 @ 17:51 by Sofia Wong) Mother Arthritis Breast cancer Heart disease Father Heart disease Alcohol abuse Blood clot in vein Sister Anxiety Depression Brother Anxiety History Items: No pertinent history Review of Systems Constitutional: Denies: Chills, Fever, Weight Change HEENT: Denies: Head Aches, Sinus Congestion, Sinus Drainage Cardiovascular: Denies: Chest Pain, Palpitations Respiratory: Denies: Cough, Shortness of breath at rest, Sputum production Gastrointestinal: Reports: Abdominal Pain, Diarrhea, Nausea, Vomiting, - - flank pain Genitourinary: Reports: Retention. Denies: Dysuria Musculoskeletal: Denies: Joint Pain, Joint Tenderness Skin: Denies: Rash, Wounds Neurological: Denies: Numbness, Tingling, Focal weakness Psychiatric: Reports: Depression. Denies: Anxiety, Homicidal Ideations, Suicidal Ideations Hematologic/ Lymphatic: Denies: Easy Bruising, Easy Bleeding VTE Information - Inpt Only VTE Present on Admission: No VTE Mechan Device Prophylaxis: None VTE Pharm Prophylaxis ordered?: Yes Patient Problems: Active and Suspected Problems (Last Reviewed 04/22/18 @ 17:51 by Sofia Wong) BAMBI (acute kidney injury) (Acute) Acute metabolic encephalopathy (Acute) - Physical Exam General: Alert, Cooperative, Confused, Disoriented, - - a/ox2 HEENT: Atraumatic, PERRLA, EOMI, Normocephalic Neck: Supple, No JVD, Negative Carotid Bruits Lungs: Clear to auscultation, Normal air movement Cardiovascular: Regular rate, No murmurs Abdomen: Bowel Sounds Present, Soft, Obese, Tender Extremities: No edema, Capillary Refill Less than 3 Seconds Skin: No rashes, No breakdown Musculoskeletal: No Tenderness to Palpation of Joints or Extremities Neurological: Cranial nerves II-XII grossly intact, - - muscle spasms Psych/Mental Status: Anxious Vital Signs Temp Pulse Resp BP Pulse Ox 98.3 F 92 14 86/67 L 95 04/27/18 09:56 04/27/18 14:38 04/27/18 14:38 04/27/18 14:38 04/27/18 14:38 Oxygen Delivery Method Room Air Weight: 362 lb Body Mass Index (BMI) 51.9 Finger Stick Blood Glucose 195 Laboratory Tests Past 24 Hrs 04/27/18 04/27/18 04/27/18 11:30 11:45 11:45 WBC 18.9 H RBC 3.67 L Hgb 12.1 Hct 36.9 L MCV 100.5 H MCH 33.0 H MCHC 32.8 RDW 14.2 RDW Differential 52.4 H Plt Count 272 MPV 10.0 Immature Gran % (Auto) 0.600 Neut % (Auto) 77.5 H Lymph % (Auto) 16.0 L [place] % (Auto) 3.4 Eos % (Auto) 2.2 Baso % (Auto) 0.3 Absolute Neuts (auto) 14.7 H Absolute Lymphs (auto) 3.05 Total Counted Not Reportable Sodium 128 L Potassium 4.0 Chloride 94 L Carbon Dioxide 19.0 L Anion Gap 15 BUN 24 H Creatinine 3.94 H Estim Creat Clear Calc 19.70 Est GFR (MDRD) Af Amer 16 L Est GFR (MDRD) Non-Af 13 L BUN/Creatinine Ratio 6.1 L Glucose 189 H Calcium 9.0 Total Bilirubin 0.40 Direct Bilirubin 0.10 AST 95 H ALT 42 Alkaline Phosphatase 53 Total Protein 7.9 Albumin 3.8 Globulin 4.1 Lipase 165 Urine Color Yellow Urine Clarity Sl. Cloudy Urine pH 6.0 Ur Specific [place] 1.010 Urine Protein 15 H Urine Glucose (UA) 50 H Urine Ketones Negative Urine Occult Blood Negative Urine Nitrite Negative Urine Bilirubin Negative Urine Urobilinogen Normal Ur Leukocyte Esterase Negative Urine RBC 0 SEEN Urine WBC 0 SEEN Ur Squamous Epith Cells 0-5 SEEN Urine Bacteria 1+ Urine Mucus 0 SEEN Assessment/Plan All Active Problems (Last Reviewed 04/22/18 @ 17:51 by Sofia Wong) Rhabdomyolysis (Acute) Migraine aura, persistent (Acute) BAMBI (acute kidney injury) (Acute) Acute metabolic encephalopathy (Acute) Hypokalemia (Acute) MRSA (methicillin resistant Staphylococcus aureus) (Acute) Acute respiratory failure (Acute) ARF (acute renal failure) (Acute) Hyperosmolarity due to secondary diabetes (Acute) Depression (Acute) 1. BAMBI - likely 2/2 urinary retention acute on chronic - consult to Dr Garcia. Mary placed. Monitor I/O. check FeNA, BUN/Cr ratio Low. UA negative. Hold Nephrotoxic agents. Check CK - recent rhabdo, elevated AST. Recheck CMP. -BP is poor. Aggressive hydration. 2. Leukoytosis unclear etiology - possibly Acute gastroenteritis as she has had some n/v/d and abdominal pain. Check CXR and KUB 3. Acute metabolic encephalopathy 2/2 BAMBI/uremia - muscle twitches, mental status fluctuant. Hold sedating meds. 4. DMt2 - hold orals. SSI. 5. Hyponatremia - DC HCTZ permanently. 6. Bipolar hx - home meds. hold elavil 7. Hx Migraine - topamax 8. Hx Polysubstance - tox screen 9. Morbid obesity - dietary consult. 10. Hx hypothyroid? - check TSH / FT4 DVT ppx: Heparin DC planning: PTOT This patient was seen by Reese Urena PA-C under the supervision of Doctor Yasmany.
--- NOTE | 2018-04-27 16:38 | RAD_ITS ---
STUDY: X-RAY CHEST REASON FOR EXAM: Female, 42 years old. SOB. TECHNIQUE: PA and lateral views. COMPARISON: 01/16/2018. FINDINGS: Low lung volumes. The lungs are clear and expanded. There is no demonstrated pleural abnormality. Normal size heart. Normal mediastinum and galina. Normal visualized pulmonary arteries. Normal visualized aortic arch and descending thoracic aorta. Normal visualized thoracic spine. Normal visualized ribs, clavicles, and shoulders. There is no demonstrated abnormality of the visualized soft tissue structures of the upper abdomen. RAD/Chest PA and Lateral IMPRESSION: Normal x-ray examination of the chest. Electronically Signed: Aysha Jimenez MD at 18:39 EDT Tel , Service support ,
[2018-04-27] MEDS: 0.9% Normal Saline 1,000 ML 999 ML IV ×2 (16:53→18:00)
[2018-04-27 17:04] LABS: Amphetamine Urine VISTA NEGATIVE (<1000 ng/mL); Barbiturate Urine VISTA NEGATIVE (< 200 ng/mL); Benzodiazepine Urine VISTA NEGATIVE (< 200 ng/mL); Cocaine Urine VISTA NEGATIVE (< 300 ng/mL); Ecstacy Urine VISTA NEGATIVE (< 500 ng/mL); Methadone Urine VISTA NEGATIVE (< 300 ng/mL); PCP Urine VISTA NEGATIVE (< 25 ng/mL); THC Urine VISTA NEGATIVE (< 50 ng/mL); Vista UDS pH Range 6
--- NOTE | 2018-04-27 17:12 | NURSING ---
PT TO X-RAY VIA BED
--- NOTE | 2018-04-27 17:45 | RAD_ITS ---
STUDY: X-RAY - ABDOMEN/PELVIS REASON FOR EXAM: Female, 42 years old. Abdominal distention. TECHNIQUE: Supine and erect views of the abdomen. COMPARISON: 01/17/2018. FINDINGS: Normal visualized lung bases. The demonstrated: Is gas-filled with mild distention. There is no evidence of abrupt transition to indicate focal obstruction. No evidence of small bowel obstruction. No abnormal calcifications are seen. Surgical clips in the right upper quadrant consistent with cholecystectomy. RAD/Abd Inc Decub and/or Erect IMPRESSION: Mild gaseous distention of the colon, without high-grade obstruction or obvious cutoff. If there is continued clinical concern, CT of the abdomen is advised. Electronically Signed: Aysha Jimenez MD at 18:44 EDT Tel , Service support ,
[2018-04-27 18:24] LABS: CPK Total, Creatine Kinase 2459 U/L (26-192); Magnesium 2.1 mg/dL (1.6-2.6); T4 Free Direct 0.19 ng/dL (0.76-1.46)
[2018-04-27] MEDS: 0.9% Normal Saline 1,000 ML 150 ML IV (19:05)
[2018-04-27 19:20] LABS: Osmolality, Urine 180 mOsm/KG
--- NOTE | 2018-04-27 22:20 | NURSING ---
MILLER SUPERVISOR called at this time by primary nurse due to neurological changes in the patient. She was unresponsive to verbal stimuli, lethargic and only responded with movement to deep painful stimuli. Extremities cold to touch. Pupils non reactive, fixed. Blood sugar 201. See VSA for vitals @ this time. 2L NC placed as patient was witnessed to be apneic. Pt has hx of seizures. Dr. Mi to bedside. Fluids opened up. A total of 3 boluses would be given up until arrival to ICU. Unable to obtain IV access with multiple attempts and use of doppler and vein finder. Blood pressure continued to drop: 74/54, 76/56, 68/29. Oxygen 78%, put on nonrebreather by CPS who was present. Patient was transported to ED for placement of central line. From here, transport to CT/XRAY. She was then taken to ICU. This RN @ bedside during entire transport.
--- NOTE | 2018-04-27 22:35 | EKG12_ITS ---
Test Reason : Blood Pressure : / mmHG Vent. Rate : 102 BPM Atrial Rate : 102 BPM P-R Int : 170 ms QRS Dur : 108 ms QT Int : 328 ms P-R-T Axes : 038 063 -30 degrees QTc Int : 427 ms Sinus tachycardia with Fusion complexes Otherwise normal ECG When compared with ECG of 22-MAR-2018 17:46, Fusion complexes are now Present QT has shortened Confirmed by KHADIJAH PRESSLEY, ISMA ([id number]), senior editor DANILO NORMAN ([id number]) on 04/29/2018 2:05:41 PM Referred By: NADEEM Confirmed By:ISMA LUCIO MD
--- NOTE | 2018-04-27 23:07 | NURSING ---
ARRIVED TO ED BED 1 AT THIS TIME.
[2018-04-28] VITALS (60 sets, daily range): BP systolic 70–118; BP diastolic 41–89; PULSE 92–112; RESP 10–21; TEMP 36.5–37.3; O2SAT 92–100
[2018-04-28 00:23] LABS: Absolute Lymphocyte Count 1.75 X10^3/ul (0.83-4.51); Absolute Neutrophil Count 16.2 X10^3/uL (2.0-7.7); Basophil# 0.03 X10^3/uL; Basophil% 0.2 % (0-1); Eosinophil# 0.15 X10^3/uL; Eosinophils% 0.8 % (0-5); Hematocrit 30.6 % (37-47); Hemoglobin 10.4 g/dl (12.0-15.0); Lymphocyte # 1.75 X10^3/ul (4.0); Lymphocyte % 9.2 % (19-41); Mean Corpuscular Hgb 34.2 pg (27.0-32.0); Mean Corpuscular Volume 100.7 fL (81-99); Monocyte# 0.85 X10^3/uL; Monocyte% 4.5 % (0-10); Neutrophil # 16.24 X10^3/uL (2.7-7.7); Neutrophil % 84.9 % (47-70); POSITIVE COUNT NO; POSITIVE DIFFERENTIAL NO; POSITIVE MORPHOLOGY NO; Platelet Count 243 K/mm3 (150-450); RBC Distribution Width CV 13.9 % (11.6-14.6); RBC Distribution Width SD 49.6 fl (35.1-43.9); Red Blood Count 3.04 M/mm3 (4.2-5.4); White Blood Count 19.1 K/mm3 (4.4-11.0)
[2018-04-28 00:32] LABS: Anion Gap 13 (5-15); BUN 31 mg/dL (7-18); BUN/Creat Ratio 6.9 RATIO (10-20); Calcium,Total 7.9 mg/dL (8.5-10.1); Chloride 96 mmol/L (98-107); Creatinine, Serum 4.48 mg/dL (0.55-1.02); EST Glomerular Filtration Rate 11 mL/min (>60); Est Glom Filt Rate - Afr Amer 14 mL/min (>60); Estimated Creatinine Clearance 16.75 ml/min; Glucose 221 mg/dL (74-106); Phosphorus 5.9 mg/dL (2.5-4.9); Potassium 4.2 mmol/L (3.5-5.1); Sodium Level 130 mmol/L (136-145)
--- NOTE | 2018-04-28 00:35 | RAD_ITS ---
STUDY: X-RAY CHEST REASON FOR EXAM: Female, 42 years old. Central line placement TECHNIQUE: Frontal view COMPARISON: 04/27/2018 FINDINGS: There is a RIGHT subclavian central venous catheter. The tip is in the superior vena cava. There is suboptimal inspiration. There are NO infiltrates, effusions or pneumothoraces. There is no demonstrated pleural abnormality. Normal size heart. Normal mediastinum and galina. Normal visualized pulmonary arteries. Normal visualized aortic arch and descending thoracic aorta. Normal visualized thoracic spine. Normal visualized ribs, clavicles, and shoulders. There is no demonstrated abnormality of the visualized soft tissue structures of the upper abdomen. RAD/Chest 1 View IMPRESSION: There is NO acute cardiopulmonary abnormality. The central venous catheter is in good position. There is NO visible pneumothorax. Electronically Signed: Domo Boston MD at 1:15 EDT , Service support ,
[2018-04-28 01:11] LABS: Bedside Glucose 201 mg/dL (70-110)
--- NOTE | 2018-04-28 01:22 | SUR.OPER ---
Procedure note --right subclavian central line placement Patient was inpatient, and dropping her pressure on MedSurg, hospitalist requested that the patient be brought to the emergency department for central line placement. I attempted to discuss risks and benefits with the patient, she was awake, but altered, and there is no family available. We briefly discussed risks and benefits, and the patient is hypotensive in the 70s, while getting IV fluid bolusing. I agree that the central line is indicated, and the potential benefits outweigh the risks. Therefore, since the patient is not able to consent or sign, the procedure was done on the patient's behalf with her best interest in mind. The right subclavian site was prepped and draped in a sterile fashion, an Arrow 16 cm triple-lumen catheter central line kit was used, which included a down and chlorhexidine prep. On second attempt with finder needle after locally anesthetizing with a total of 8 cc of plain 1% lidocaine, dark red nonpulsatile blood was found beneath the clavicle, and triple-lumen catheter was placed via modified Seldinger technique without any difficulty. The wire threaded easily, catheter threaded easily, all 3 ports paige back dark red blood and flushed easily. It was sutured into place, and x-ray confirms placement without any signs of a pneumothorax. Line is good for use. She was transferred back to the floor uneventfully.
[2018-04-28] MEDS: Haloperidol Lactate 5 MG/ML Vial 2 MG IV (01:33)
[2018-04-28] MEDS: 0.9% NaCl Peripheral Flush Adult/Peds IV ×3 (01:34→15:58)
[2018-04-28] MEDS: Haloperidol Lactate 5 MG/ML Vial 3 MG IV (02:00)
[2018-04-28] MEDS: 0.9% Normal Saline 1,000 ML 150 ML IV (02:03)
[2018-04-28] MEDS: 0.9% Normal Saline 1,000 ML 999 ML IV ×3 (02:30→02:31)
[2018-04-28 03:16] LABS: Bedside Glucose 198 mg/dL (70-110)
[2018-04-28 03:56] LABS: M R Staph aureus DNA By PCR Negative (Negative); Probe Check PASS; Specimen Processing Control PASS
[2018-04-28 04:15] LABS: Urine Sodium 32 mmol/L (Not Establ.)
[2018-04-28 04:36] LABS: Absolute Lymphocyte Count 1.58 X10^3/ul (0.83-4.51); Absolute Neutrophil Count 14.1 X10^3/uL (2.0-7.7); Basophil# 0.01 X10^3/uL; Basophil% 0.1 % (0-1); Eosinophil# 0.16 X10^3/uL; Eosinophils% 0.9 % (0-5); Hematocrit 33.8 % (37-47); Hemoglobin 11.2 g/dl (12.0-15.0); Lymphocyte # 1.58 X10^3/ul (4.0); Lymphocyte % 9.3 % (19-41); Mean Corp Hgb Conc 33.1 g/gl (32-36); Mean Corpuscular Hgb 33.2 pg (27.0-32.0); Mean Corpuscular Volume 100.3 fL (81-99); Mean Platelet Vol. 9.6 fl (6.2-12.0); Monocyte% 5.9 % (0-10); Neutrophil # 14.14 X10^3/uL (2.7-7.7); Neutrophil % 83.6 % (47-70); Platelet Count 247 K/mm3 (150-450); RBC Distribution Width CV 14.3 % (11.6-14.6); RBC Distribution Width SD 52.8 fl (35.1-43.9); Red Blood Count 3.37 M/mm3 (4.2-5.4); White Blood Count 16.9 K/mm3 (4.4-11.0)
[2018-04-28 04:42] LABS: POSITIVE COUNT NO; POSITIVE DIFFERENTIAL NO; POSITIVE MORPHOLOGY YES
[2018-04-28 05:07] LABS: CPK Total, Creatine Kinase 2337 U/L (26-192)
[2018-04-28 05:19] LABS: ALB/GLOB Ratio 0.8 RATIO (0.9-2.4); AST(SGOT) 97 U/L (15-37); Alanine Aminotransfer ALT/SGPT 43 U/L (13-56); Albumin, Serum 3.1 g/dL (3.2-5.0); Alkaline Phosphatase 57 U/L (45-117); Anion Gap 13 (5-15); BUN 32 mg/dL (7-18); BUN/Creat Ratio 7.4 RATIO (10-20); Calcium,Total 7.8 mg/dL (8.5-10.1); Chloride 97 mmol/L (98-107); Differential Indicated SCAN CRITERIA MET; EST Glomerular Filtration Rate 12 mL/min (>60); Est Glom Filt Rate - Afr Amer 14 mL/min (>60); Estimated Creatinine Clearance 17.45 ml/min; Globulin 3.7 g/dL (2.2-4.2); Glucose 210 mg/dL (74-106); Potassium 4.5 mmol/L (3.5-5.1); Protein, Total 6.8 g/dL (6.4-8.2); Sodium Level 132 mmol/L (136-145)
[2018-04-28] MEDS: Heparin Injection (Vial) 5,000 UNIT/ML VIAL 5000 UNIT SC ×3 (06:06→22:26)
[2018-04-28 06:16] LABS: Bedside Glucose 180 mg/dL (70-110)
--- NOTE | 2018-04-28 06:36 | PCM.CON.CC ---
Reason for Consult Date of Consultation: 04/28/18 Reason for Consultation: Septic shock History of Present Illness: The patient is a 42-year-old female, with a history as outlined below, who initially presented to the emergency department on April 27 with urinary retention and nausea ?24 hours. The patient was noted to be afebrile upon presentation but was mildly hypotensive. She was initially maintaining appropriate oxygen saturations on room air. Laboratory evaluation revealed an elevated white blood cell count to 19,000. Chemistry profile revealed a sodium of 128, chloride of 94, bicarbonate of 19 and creatinine of 3.94. CK was elevated to 2459. TSH was increased to 163 with a free T4 of 0.19. Toxicology screen was positive for urine opiates. The patient was initially given antiemetics and supplemental IV fluid hydration. She was initially admitted to [place] [id number] for workup of her acute kidney injury and urinary retention. However, during the late evening hours of April 27, a rapid response was called due to patient encephalopathy and hypotension. Per documentation, the patient had a blood pressure of 74/54. She was given a total of 3 L of supplemental IV fluids. The patient was transferred to the emergency department where a central line was placed. CT head was grossly negative. Plain film chest x-ray revealed no acute cardiopulmonary process. Review of the patient's medications does not reveal the presence of Synthroid. The patient did eventually require the initiation of vasopressor support. She was subsequently transferred to the medical intensive care unit for ongoing management. Past Medical History Past Medical History (Chronic Problems): Chronic Problems (Last Reviewed 04/22/18 @ 17:51 by Sofia Wong) Morbid obesity (Chronic) Chronic pain syndrome (Chronic) Urinary retention with incomplete bladder emptying (Chronic) Insomnia (Chronic) Seasonal allergies (Chronic) Anxiety and depression (Chronic) Back problem (Chronic) Carpal tunnel syndrome (Chronic) Diabetes type 2, uncontrolled (Chronic) Frequent headaches (Chronic) HTN (hypertension) (Chronic) Fatty liver (Chronic) GERD (gastroesophageal reflux disease) (Chronic) Thyroid disease (Chronic) Fibromyalgia (Chronic) Diabetes mellitus (Chronic) Discussed with patient need to check BG consistently and routinely. Showed her how to check correctly along side of finger and how to improve chances of getting blood sample on low dial. She may be a candidate for [facility],depending on insurance. We discussed importance of routine care and following medication plan. Her level of anxiety significantly reduce by end of appointment. Instructed to check BG in pairs over the next several days . Will obtain medical records Medical History: Medical History (Last Reviewed 04/22/18 @ 17:51 by Sofia Wong) MRSA (methicillin resistant Staphylococcus aureus) (Acute) A49.02 x3 Seasonal allergies (Chronic) J30.2 Anxiety and depression (Chronic) F41.8 Back problem (Chronic) M53.9 Carpal tunnel syndrome (Chronic) G56.00 Diabetes type 2, uncontrolled (Chronic) E11.65 Frequent headaches (Chronic) R51 HTN (hypertension) (Chronic) I10 Fatty liver (Chronic) K76.0 GERD (gastroesophageal reflux disease) (Chronic) K21.9 Thyroid disease (Chronic) E07.9 Fibromyalgia (Chronic) M79.7 Allergies hydroxyzine [From Atarax] Allergy (Verified 04/27/18 09:55) Hives Sulfa (Sulfonamide Antibiotics) Allergy (Verified 04/27/18 09:55) Hives raspberry Adverse Reaction (Verified 04/27/18 09:55) Other [facility] Home Medications: Ambulatory Orders Medication Instructions Recorded Omeprazole [Prilosec] 40 mg PO DAILY 10/16/15 Topiramate [Topamax] 100 mg PO 5X/DAY 10/16/15 lidocaine 5 % topical ointment 1 applic TOPICAL BID-QID PRN 10/15/17 oxybutynin chloride 5 mg tablet 5 mg PO TID 10/15/17 Tizanidine HCl [Zanaflex] 4 mg PO TID 01/18/18 glimepiride 2 mg tablet 2 mg PO QAM #90 tab 02/19/18 hydrochlorothiazide 12.5 mg capsule 12.5 mg PO QAM #90 cap 02/19/18 amitriptyline 75 mg tablet 75 mg PO QHS #60 tab 04/06/18 venlafaxine ER 150 mg 150 mg PO BID cap 04/06/18 capsule,extended release 24 hr Atorvastatin Calcium [Lipitor] 40 mg PO QHS 04/27/18 Blood Sugar Diagnostic [Assure 0 x .ROUTE .MEDSUPPLY 04/27/18 Prism Multi] Cider Vinegar [Apple Cider Vinegar] 300 mg PO DAILY 04/27/18 Flash Glucose Scanning [place] 0 x .ROUTE .MEDSUPPLY 04/27/18 [Freestyle Yuliana [place]] Lancets 0 x .ROUTE .MEDSUPPLY 04/27/18 Lisinopril [Lisinopril] 20 mg PO DAILY 04/27/18 Multivit-Min/Iron/Folic/Lutein 1 tab PO DAILY 04/27/18 [Centrum Silver Women Tablet] Surgical History: Surgical History (Last Reviewed 04/22/18 @ 17:51 by Sofia Wong) H/O hernia repair Z98.890, Z87.19 H/O sinus surgery Z98.890 H/O thyroidectomy Z98.890, E89.0 H/O: Z98.891 History of incision and drainage Z98.890 Hx of appendectomy Z98.890, Z90.49 Hx of cholecystectomy Z98.890, Z90.49 S/P RUTH (total abdominal hysterectomy) Z90.710 S/P bronchoscopy Z98.890 cervical lymph node excision l toe surgery Surgical History: - - Hernia repair, sinus surgery, thyroidectomy, , appendectomy, cholecystectomy, RUTH, cervical lymph node resection. 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 pertinent ASSEMBLER BONDING history Lives: Spouse/ Significant Other Smoking Status: Never smoker Tobacco Use: Non-smoker Alcohol: None Drugs: None - *Family History Maternal Family History: Family History (Last Reviewed 04/22/18 @ 17:51 by Sofia Wong) Mother Arthritis Breast cancer Heart disease Father Heart disease Alcohol abuse Blood clot in vein Sister Anxiety Depression Brother Anxiety History Items: No pertinent history Review of Systems Unable to obtain accurate/complete ROS d/t: Due to underlying lethargy Patient Problems: Active and Suspected Problems (Last Reviewed 04/22/18 @ 17:51 by Sofia Wong) BAMBI (acute kidney injury) (Acute) Acute metabolic encephalopathy (Acute) Objective: The patient's most recent lab work, culture data and imaging studies have all been personally reviewed. Blood cultures are currently pending. - Physical Exam General: Cooperative, No apparent distress, Lethargic HEENT: Atraumatic, PERRLA, Normocephalic Oral: No Gingival or Mucosal Lesions/ Ulcerations Neck: Supple, No Nodes, Trachea Midline, - - Large neck circumference with redundant soft tissue. Lungs: No rhonchi, No wheeze, No rales, Diminished Cardiovascular: Normal S1, Normal S2, No murmurs, Tachycardic Abdomen: Bowel Sounds Present, Soft, Non Tender, Obese Extremities: No clubbing, No cyanosis, No edema Skin: No breakdown Musculoskeletal: No Tenderness to Palpation of Joints or Extremities Lymphatic: No Cervical, Supraclavicular, or Inguinal Adenopathy Neurological: - - No focal neurological deficits. Psych/Mental Status: Restless Vital Signs Temp Pulse Resp BP Pulse Ox 98 F 99 13 94/61 97 04/28/18 03:00 04/28/18 06:00 04/28/18 03:00 04/28/18 03:00 04/28/18 03:00 Oxygen Delivery Method Room Air Weight: 375 lb 0.101 oz Body Mass Index (BMI) 55.3 Intake and Output for Last 24 Hours 04/26/18 04/27/18 04/28/18 23:59 23:59 23:59 Intake Total 1500 / 1500 3973 / 3973 Output Total 500 / 500 500 / 500 Balance 1000 / 1000 3473 / 3473 Laboratory Tests Past 24 Hrs 04/28/18 04/28/18 04/28/18 00:05 00:05 01:50 WBC 19.1 H RBC 3.04 L Hgb 10.4 L Hct 30.6 L MCV 100.7 H MCH 34.2 H MCHC 34.0 RDW 13.9 RDW Differential 49.6 H Plt Count 243 MPV 10.0 Immature Gran % (Auto) 0.400 Neut % (Auto) 84.9 H Lymph % (Auto) 9.2 L [place] % (Auto) 4.5 Eos % (Auto) 0.8 Baso % (Auto) 0.2 Absolute Neuts (auto) 16.2 H Absolute Lymphs (auto) 1.75 Total Counted Not Reportable Sodium 130 L Potassium 4.2 Chloride 96 L Carbon Dioxide 21.0 Anion Gap 13 BUN 31 H Creatinine 4.48 H Estim Creat Clear Calc 16.75 Est GFR (MDRD) Af Amer 14 L Est GFR (MDRD) Non-Af 11 L BUN/Creatinine Ratio 6.9 L Glucose 221 H Calcium 7.9 L Phosphorus 5.9 H Magnesium 2.0 Total Bilirubin AST ALT Alkaline Phosphatase Total Creatine Kinase Total Protein Albumin Globulin Albumin/Globulin Ratio Ur Random Sodium MRSA (PCR) Negative 09/07/0504/28/18 04/28/18 03:45 04:22 04:22 WBC 16.9 H RBC 3.37 L Hgb 11.2 L Hct 33.8 L MCV 100.3 H MCH 33.2 H MCHC 33.1 RDW 14.3 RDW Differential 52.8 H Plt Count 247 MPV 9.6 Immature Gran % (Auto) 0.200 Neut % (Auto) 83.6 H Lymph % (Auto) 9.3 L [place] % (Auto) 5.9 Eos % (Auto) 0.9 Baso % (Auto) 0.1 Absolute Neuts (auto) 14.1 H Absolute Lymphs (auto) 1.58 Total Counted Not Reportable Sodium 132 L Potassium 4.5 Chloride 97 L Carbon Dioxide 22.0 Anion Gap 13 BUN 32 H Creatinine 4.30 H Estim Creat Clear Calc 17.45 Est GFR (MDRD) Af Amer 14 L Est GFR (MDRD) Non-Af 12 L BUN/Creatinine Ratio 7.4 L Glucose 210 H Calcium 7.8 L Phosphorus Magnesium Total Bilirubin 0.50 AST 97 H ALT 43 Alkaline Phosphatase 57 Total Creatine Kinase Total Protein 6.8 Albumin 3.1 L Globulin 3.7 Albumin/Globulin Ratio 0.8 L Ur Random Sodium 32 MRSA (PCR) 04/28/18 04:22 WBC RBC Hgb Hct MCV MCH MCHC RDW RDW Differential Plt Count MPV Immature Gran % (Auto) Neut % (Auto) Lymph % (Auto) [place] % (Auto) Eos % (Auto) Baso % (Auto) Absolute Neuts (auto) Absolute Lymphs (auto) Total Counted Sodium Potassium Chloride Carbon Dioxide Anion Gap BUN Creatinine Estim Creat Clear Calc Est GFR (MDRD) Af Amer Est GFR (MDRD) Non-Af BUN/Creatinine Ratio Glucose Calcium Phosphorus Magnesium Total Bilirubin AST ALT Alkaline Phosphatase Total Creatine Kinase 2337 H Total Protein Albumin Globulin Albumin/Globulin Ratio Ur Random Sodium MRSA (PCR) POC Glucose 04/28/18 04/28/18 04/27/18 06:03 03:10 22:06 POC Glucose 180 H 198 H 201 H Clinical Impression(s) from Imaging Studies Chest X-Ray 04/27/18 16:38 IMPRESSION: Normal x-ray examination of the chest. Electronically Signed: Aysha Jimenez MD at 18:39 EDT Tel , Service support , Abdomen X-Ray 04/27/18 17:45 IMPRESSION: Mild gaseous distention of the colon, without high-grade obstruction or obvious cutoff. If there is continued clinical concern, CT of the abdomen is advised. Electronically Signed: Aysha Jimenez MD at 18:44 EDT Tel , Service support , Chest X-Ray 04/28/18 00:35 IMPRESSION: There is NO acute cardiopulmonary abnormality. The central venous catheter is in good position. There is NO visible pneumothorax. Electronically Signed: Domo Boston MD at 1:15 EDT , Service support , Brain CT 04/28/18 22:35 IMPRESSION: Normal unenhanced CT scan of the brain. Electronically Signed: Domo Boston MD at 1:25 EDT , Service support , Assessment/Plan Active and Suspected Problems (Last Reviewed 04/22/18 @ 17:51 by Sofia Wong) BAMBI (acute kidney injury) (Acute) Acute metabolic encephalopathy (Acute) RECOMMENDATIONS: 1. Resend stat TSH and initiate IV replacement of significantly elevated. 2. Check blood and urine cultures. Initiate empiric Zosyn, given negative MRSA serology. 3. Check serum lactate level. 4. Hold sedating medications. 5. Continue Levophed to maintain a mean arterial pressure at or above 65 mmHg. 6. Check troponin level along with surface echocardiogram. 7. Obtain arterial blood gas if the patient becomes lethargic once again. 8. Initiate empiric BiPAP therapy 14/6 cm of water with naps and nightly. IMPRESSIONS: 1. Distributive shock versus overt hypothyroidism Unclear infectious source at this time. Regardless, the patient has been adequately volume resuscitated and will remain on Levophed to maintain a mean arterial pressure at or above 65 mmHg. Empiric broad-spectrum antibiotics will be continued, pending infectious workup. It is also possible that the patient's overt hypothyroidism may be contributing to her current state of hemodynamic instability. IV Synthroid to be administered today, as the patient is unable to tolerate p.o. intake. We will also plan to check serum cortisol level for potential concomittent adrenal insufficiency. 2. Acute on chronic kidney disease Unclear etiology for the patient's worsening renal function. CK is elevated, although this could be related to the patient's hypothyroidism as well. We will continue to hold nephrotoxic agents, including lisinopril and diuretics. Continue gentle IV fluid hydration as tolerated. Nephrology is following. 3. Metabolic encephalopathy Likely multifactorial in etiology with underlying overt hypothyroidism, possible polypharmacy and questionable hypercarbia contributing. Sedating medications are currently on hold. We will plan to check arterial blood gas and initiate empiric BiPAP therapy with naps and nightly. Continue gentle IV fluid hydration. IV Synthroid to be administered today to address the patient's hypothyroidism. If she is able to tolerate p.o. intake tomorrow, Synthroid can be transitioned to p.o. route. 4. Elevated CK Possible mild rhabdo versus effects of untreated hypothyroidism. We will continue gentle IV fluid hydration with half-normal saline. Recheck CK tomorrow. 5. Suspected sleep disordered breathing The patient certainly demonstrates signs and symptoms concerning for underlying obstructive sleep apnea. She will be placed empirically on BiPAP with a pressure support of 14/6 cm of water with naps and nightly. 6. Personal history of chronic pain syndrome/diabetes/depression/hypothyroidism/morbid obesity Complicates care, management, recovery and prognosis. Continue Accu-Cheks and sliding scale insulin coverage every 6 hours for now. Continue to hold sedating medications. ADDENDUM: Throughout the late morning and early afternoon hours, the patient was noted to be increasingly lethargic and less responsive. Arterial blood gas revealed acute CO2 retention, for which the patient was placed on BiPAP therapy. Despite several hours of noninvasive positive pressure ventilation, the patient remained lethargic and hypercarbic. I discussed these findings with the patient's at the bedside, including my suggestion to proceed with intubation. The patient's was in agreement to proceed accordingly. Bedside Intubation Documentation: The patient was placed in appropriate sniffing position. She was premedicated with 4 mg of Versed. 100 mcg of fentanyl was administered and the patient was preoxygenated via bag valve mask. Video laryngoscopy was performed and revealed a grade 2 view. #7.5 endotracheal tube was then placed without difficulty. Breath sounds were noted to be equal bilaterally. Bedside Arterial Line Placement: The patient?s left wrist was prepped and draped in sterile fashion. An 18G Arrow arterial line was introduced into the radial artery. The catheter was threaded over the guide wire and the needle was removed with appropriate pulsatile blood return. The catheter was then sutured in place to the skin and a sterile dressing applied. Perfusion to the extremity distal to the point of catheter insertion was checked and found to be adequate. ULTRASOUND GUIDANCE STATEMENT (Vascular Access): I performed ultrasound image acquisition and interpretation for needle placement during this procedure. The vessel was identified and was found to be free of thrombosis by compression technique. A safe point of entry was marked at the skin and an angle for access was determined. The needle was guided by obtaining free flowing fluid and by real time visualization. TIME: 85 minutes of critical care time, inclusive of procedures, was spent addressing the patient's distributive shock versus overt hypothyroidism, acute on chronic kidney disease, metabolic encephalopathy, elevated CK, suspected sleep disordered breathing, review of all data and collaboration with the care team. ([id number], [id number]) Code Visit Procedures: 69952 Critial Care Addl 30 Min 9xxxx: [id number] Critical care first hour
--- NOTE | 2018-04-28 06:44 | PCM.PN.HOSP ---
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 Pt became more alert and agitated in the unit and required a dose of Haldol to settle her down. She has a known psych history and often has these presentations according to nursing staff. Labs reviewed Vitals/I&O's: Vital Signs Temp Pulse Resp BP Pulse Ox 98 F 99 13 94/61 97 04/28/18 03:00 04/28/18 06:00 04/28/18 03:00 04/28/18 03:00 04/28/18 03:00 Oxygen Delivery Method Room Air Weight: 375 lb 0.101 oz Body Mass Index (BMI) 55.3 Intake and Output for Last 24 Hours 04/26/18 04/27/18 04/28/18 23:59 23:59 23:59 Intake Total 1500 / 1500 3973 / 3973 Output Total 500 / 500 500 / 500 Balance 1000 / 1000 3473 / 3473 General: Lethargic, Non-Cooperative HEENT: Atraumatic, Normocephalic Lungs: Clear to auscultation, No rhonchi, No wheeze, No rales Cardiovascular: Regular rate, Normal S1, Normal S2 Abdomen: Bowel Sounds Present, Obese Extremities: No edema Neurological: Muscle tone normal Laboratory Results 04/27/18 22:06: POC Glucose 201 H 04/28/18 00:05: WBC 19.1 H, RBC 3.04 L, Hgb 10.4 L, Hct 30.6 L, MCV 100.7 H, MCH 34.2 H, MCHC 34.0, RDW 13.9, RDW Differential 49.6 H, Plt Count 243, MPV 10.0, Immature Gran % (Auto) 0.400, Neut % (Auto) 84.9 H, Lymph % (Auto) 9.2 L, [place] % (Auto) 4.5, Eos % (Auto) 0.8, Baso % (Auto) 0.2, Absolute Neuts (auto) 16.2 H, Absolute Lymphs (auto) 1.75, Total Counted Not Reportable 04/28/18 00:05: Sodium 130 L, Potassium 4.2, Chloride 96 L, Carbon Dioxide 21.0, Anion Gap 13, BUN 31 H, Creatinine 4.48 H, Estim Creat Clear Calc 16.75, Est GFR (MDRD) Af Amer 14 L, Est GFR (MDRD) Non-Af 11 L, BUN/Creatinine Ratio 6.9 L, Glucose 221 H, Calcium 7.9 L, Phosphorus 5.9 H, Magnesium 2.0 04/28/18 01:50: MRSA (PCR) Negative 04/28/18 03:10: POC Glucose 198 H 04/28/18 03:45: Ur Random Sodium 32 04/28/18 04:22: WBC 16.9 H, RBC 3.37 L, Hgb 11.2 L, Hct 33.8 L, MCV 100.3 H, MCH 33.2 H, MCHC 33.1, RDW 14.3, RDW Differential 52.8 H, Plt Count 247, MPV 9.6, Immature Gran % (Auto) 0.200, Neut % (Auto) 83.6 H, Lymph % (Auto) 9.3 L, [place] % (Auto) 5.9, Eos % (Auto) 0.9, Baso % (Auto) 0.1, Absolute Neuts (auto) 14.1 H, Absolute Lymphs (auto) 1.58, Total Counted Not Reportable 04/28/18 04:22: Sodium 132 L, Potassium 4.5, Chloride 97 L, Carbon Dioxide 22.0, Anion Gap 13, BUN 32 H, Creatinine 4.30 H, Estim Creat Clear Calc 17.45, Est GFR (MDRD) Af Amer 14 L, Est GFR (MDRD) Non-Af 12 L, BUN/Creatinine Ratio 7.4 L, Glucose 210 H, Calcium 7.8 L, Total Bilirubin 0.50, AST 97 H, ALT 43, Alkaline Phosphatase 57, Total Protein 6.8, Albumin 3.1 L, Globulin 3.7, Albumin/Globulin Ratio 0.8 L 04/28/18 04:22: Total Creatine Kinase 2337 H 04/28/18 06:03: POC Glucose 180 H Current Medications Acetaminophen (Tylenol) 650 mg PO Q6H PRN PRN PRN Reason: Non-cardiac pain (mod-severe) Al Hydroxide/Mg Hydroxide (Mylanta Ii) 30 ml PO Q6H PRN PRN PRN Reason: Gastric burning Atorvastatin Calcium (Lipitor) 40 mg PO QHS [facility] Last Admin: 04/28/18 02:01 Dose: Not Given Heparin Sodium (Porcine) (Heparin Na) 5,000 unit SC Q8 [facility] Last Admin: 04/28/18 06:06 Dose: 5,000 unit Hydralazine HCl (Apresoline Iv) 10 mg IV Q4H PRN PRN PRN Reason: SBP > 160 Sodium Chloride () 1,000 mls @ 150 mls/hr IV .[id number] [facility] Last Admin: 04/28/18 02:03 Dose: 150 mls/hr Norepinephrine Bitartrate 8 mg (/ Dextrose) 258 mls @ 9.67 mls/hr IV .[id number] [facility] PRN Reason: 5 MCG/MIN Last Admin: 04/28/18 01:58 Dose: 9.67 mls/hr Insulin Human Lispro (Humalog Kwikpen (Bkc)) 0 unit SC ACHS [facility] PRN Reason: Protocol Last Admin: 04/28/18 03:12 Dose: Not Given Levothyroxine Sodium (Synthroid) 50 mcg PO DAILY@0600 [facility] Magnesium Hydroxide (Milk Of Magnesia) 30 ml PO DAILY PRN PRN PRN Reason: Constipation Ondansetron HCl (Zofran) 4 mg IV Q8H PRN PRN PRN Reason: NAUSEA Oxycodone HCl (Oxyir) 5 mg PO Q4H PRN PRN PRN Reason: SEVERE PAIN (6-10/10) Promethazine HCl (Phenergan) 12.5 mg IV Q6H PRN PRN PRN Reason: NAUSEA/VOMITING Sodium Chloride () 5 - 30 ml IV UD PRN PRN Reason: SALINE FLUSH Last Admin: 04/28/18 01:34 Dose: 30 ml Tamsulosin HCl (Flomax) 0.4 mg PO BID@0830,1730 [facility] Last Admin: 04/28/18 01:59 Dose: Not Given Topiramate (Topamax) 100 mg PO 5X/DAY [facility] Last Admin: 04/28/18 02:01 Dose: Not Given Venlafaxine HCl (Effexor Xr) 75 mg PO BID [facility] Last Admin: 04/28/18 02:01 Dose: Not Given Medical Necessity - Tobacco Use Smoking Status: Never smoker Tobacco Use: Non-smoker Assessment/Plan All Active Problems (Last Reviewed 04/22/18 @ 17:51 by Sofia Wong) Rhabdomyolysis (Acute) Migraine aura, persistent (Acute) BAMBI (acute kidney injury) (Acute) Acute metabolic encephalopathy (Acute) Hypokalemia (Acute) MRSA (methicillin resistant Staphylococcus aureus) (Acute) Acute respiratory failure (Acute) ARF (acute renal failure) (Acute) Hyperosmolarity due to secondary diabetes (Acute) Depression (Acute)
--- NOTE | 2018-04-28 06:48 | CON.PCM_ITS ---
Reason for Consult Date of Consultation: 04/28/18 Reason for Consultation: Septic shock History of Present Illness: The patient is a 42-year-old female, with a history as outlined below, who initially presented to the emergency department on April 27 with urinary retention and nausea ?24 hours. The patient was noted to be afebrile upon presentation but was mildly hypotensive. She was initially maintaining appropriate oxygen saturations on room air. Laboratory evaluation revealed an elevated white blood cell count to 19,000. Chemistry profile revealed a sodium of 128, chloride of 94, bicarbonate of 19 and creatinine of 3.94. CK was elevated to 2459. TSH was increased to 163 with a free T4 of 0.19. Toxicology screen was positive for urine opiates. The patient was initially given antiemetics and supplemental IV fluid hydration. She was initially admitted to [place] [id number] for workup of her acute kidney injury and urinary retention. However, during the late evening hours of April 27, a rapid response was called due to patient encephalopathy and hypotension. Per documentation, the patient had a blood pressure of 74/54. She was given a total of 3 L of supplemental IV fluids. The patient was transferred to the emergency department where a central line was placed. CT head was grossly negative. Plain film chest x-ray revealed no acute cardiopulmonary process. Review of the patient's medications does not reveal the presence of Synthroid. The patient did eventually require the initiation of vasopressor support. She was subsequently transferred to the medical intensive care unit for ongoing management. Past Medical History Past Medical History (Chronic Problems): Chronic Problems (Last Reviewed 04/22/18 @ 17:51 by Sofia Wong) Morbid obesity (Chronic) Chronic pain syndrome (Chronic) Urinary retention with incomplete bladder emptying (Chronic) Insomnia (Chronic) Seasonal allergies (Chronic) Anxiety and depression (Chronic) Back problem (Chronic) Carpal tunnel syndrome (Chronic) Diabetes type 2, uncontrolled (Chronic) Frequent headaches (Chronic) HTN (hypertension) (Chronic) Fatty liver (Chronic) GERD (gastroesophageal reflux disease) (Chronic) Thyroid disease (Chronic) Fibromyalgia (Chronic) Diabetes mellitus (Chronic) Discussed with patient need to check BG consistently and routinely. Showed her how to check correctly along side of finger and how to improve chances of getting blood sample on low dial. She may be a candidate for [facility] system, depending on insurance. We discussed importance of routine care and following medication plan. Her level of anxiety significantly reduce by end of appointment. Instructed to check BG in pairs over the next several days . Will obtain medical records Medical History: Medical History (Last Reviewed 04/22/18 @ 17:51 by Sofia Wong) MRSA (methicillin resistant Staphylococcus aureus) (Acute) A49.02 x3 Seasonal allergies (Chronic) J30.2 Anxiety and depression (Chronic) F41.8 Back problem (Chronic) M53.9 Carpal tunnel syndrome (Chronic) G56.00 Diabetes type 2, uncontrolled (Chronic) E11.65 Frequent headaches (Chronic) R51 HTN (hypertension) (Chronic) I10 Fatty liver (Chronic) K76.0 GERD (gastroesophageal reflux disease) (Chronic) K21.9 Thyroid disease (Chronic) E07.9 Fibromyalgia (Chronic) M79.7 Allergies hydroxyzine [From Atarax] Allergy (Verified 04/27/18 09:55) Hives Sulfa (Sulfonamide Antibiotics) Allergy (Verified 04/27/18 09:55) Hives raspberry Adverse Reaction (Verified 04/27/18 09:55) Other [facility] Home Medications: Ambulatory Orders Medication Instructions Recorded Omeprazole [Prilosec] 40 mg PO DAILY 10/16/15 Topiramate [Topamax] 100 mg PO 5X/DAY 10/16/15 lidocaine 5 % topical ointment 1 applic TOPICAL BID-QID PRN 10/15/17 oxybutynin chloride 5 mg tablet 5 mg PO TID 10/15/17 Tizanidine HCl [Zanaflex] 4 mg PO TID 01/18/18 glimepiride 2 mg tablet 2 mg PO QAM #90 tab 02/19/18 hydrochlorothiazide 12.5 mg capsule 12.5 mg PO QAM #90 cap 02/19/18 amitriptyline 75 mg tablet 75 mg PO QHS #60 tab 04/06/18 venlafaxine ER 150 mg 150 mg PO BID cap 04/06/18 capsule,extended release 24 hr Atorvastatin Calcium [Lipitor] 40 mg PO QHS 04/27/18 Blood Sugar Diagnostic [Assure 0 x .ROUTE .MEDSUPPLY 04/27/18 Prism Multi] Cider Vinegar [Apple Cider Vinegar] 300 mg PO DAILY 04/27/18 Flash Glucose Scanning [place] 0 x .ROUTE .MEDSUPPLY 04/27/18 [Freestyle Yuliana [place]] Lancets 0 x .ROUTE .MEDSUPPLY 04/27/18 Lisinopril [Lisinopril] 20 mg PO DAILY 04/27/18 Multivit-Min/Iron/Folic/Lutein 1 tab PO DAILY 04/27/18 [Centrum Silver Women Tablet] Surgical History: Surgical History (Last Reviewed 04/22/18 @ 17:51 by Sofia Wong) H/O hernia repair Z98.890, Z87.19 H/O sinus surgery Z98.890 H/O thyroidectomy Z98.890, E89.0 H/O: Z98.891 History of incision and drainage Z98.890 Hx of appendectomy Z98.890, Z90.49 Hx of cholecystectomy Z98.890, Z90.49 S/P RUTH (total abdominal hysterectomy) Z90.710 S/P bronchoscopy Z98.890 cervical lymph node excision l toe surgery Surgical History: - - Hernia repair, sinus surgery, thyroidectomy, , appendectomy, cholecystectomy, RUTH, cervical lymph node resection. 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 Lives: Spouse/ Significant Other Smoking Status: Never smoker Tobacco Use: Non-smoker Alcohol: None Drugs: None - *Family History Maternal Family History: Family History (Last Reviewed 04/22/18 @ 17:51 by Sofia Wong) Mother Arthritis Breast cancer Heart disease Father Heart disease Alcohol abuse Blood clot in vein Sister Anxiety Depression Brother Anxiety History Items: No pertinent history Review of Systems Unable to obtain accurate/complete ROS d/t: Due to underlying lethargy Patient Problems: Active and Suspected Problems (Last Reviewed 04/22/18 @ 17:51 by Sofia Wong) BAMBI (acute kidney injury) (Acute) Acute metabolic encephalopathy (Acute) Objective: The patient's most recent lab work, culture data and imaging studies have all been personally reviewed. Blood cultures are currently pending. - Physical Exam General: Cooperative, No apparent distress, Lethargic HEENT: Atraumatic, PERRLA, Normocephalic Oral: No Gingival or Mucosal Lesions/ Ulcerations Neck: Supple, No Nodes, Trachea Midline, - - Large neck circumference with redundant soft tissue. Lungs: No rhonchi, No wheeze, No rales, Diminished Cardiovascular: Normal S1, Normal S2, No murmurs, Tachycardic Abdomen: Bowel Sounds Present, Soft, Non Tender, Obese Extremities: No clubbing, No cyanosis, No edema Skin: No breakdown Musculoskeletal: No Tenderness to Palpation of Joints or Extremities Lymphatic: No Cervical, Supraclavicular, or Inguinal Adenopathy Neurological: - - No focal neurological deficits. Psych/Mental Status: Restless Vital Signs Temp Pulse Resp BP Pulse Ox 98 F 99 13 94/61 97 04/28/18 03:00 04/28/18 06:00 04/28/18 03:00 04/28/18 03:00 04/28/18 03:00 Oxygen Delivery Method Room Air Weight: 375 lb 0.101 oz Body Mass Index (BMI) 55.3 Intake and Output for Last 24 Hours 04/26/18 04/27/18 04/28/18 23:59 23:59 23:59 Intake Total 1500 / 1500 3973 / 3973 Output Total 500 / 500 500 / 500 Balance 1000 / 1000 3473 / 3473 Laboratory Tests Past 24 Hrs 04/28/18 04/28/18 04/28/18 00:05 00:05 01:50 WBC 19.1 H RBC 3.04 L Hgb 10.4 L Hct 30.6 L MCV 100.7 H MCH 34.2 H MCHC 34.0 RDW 13.9 RDW Differential 49.6 H Plt Count 243 MPV 10.0 Immature Gran % (Auto) 0.400 Neut % (Auto) 84.9 H Lymph % (Auto) 9.2 L [place] % (Auto) 4.5 Eos % (Auto) 0.8 Baso % (Auto) 0.2 Absolute Neuts (auto) 16.2 H Absolute Lymphs (auto) 1.75 Total Counted Not Reportable Sodium 130 L Potassium 4.2 Chloride 96 L Carbon Dioxide 21.0 Anion Gap 13 BUN 31 H Creatinine 4.48 H Estim Creat Clear Calc 16.75 Est GFR (MDRD) Af Amer 14 L Est GFR (MDRD) Non-Af 11 L BUN/Creatinine Ratio 6.9 L Glucose 221 H Calcium 7.9 L Phosphorus 5.9 H Magnesium 2.0 Total Bilirubin AST ALT Alkaline Phosphatase Total Creatine Kinase Total Protein Albumin Globulin Albumin/Globulin Ratio Ur Random Sodium MRSA (PCR) Negative 09/07/0504/28/18 04/28/18 03:45 04:22 04:22 WBC 16.9 H RBC 3.37 L Hgb 11.2 L Hct 33.8 L MCV 100.3 H MCH 33.2 H MCHC 33.1 RDW 14.3 RDW Differential 52.8 H Plt Count 247 MPV 9.6 Immature Gran % (Auto) 0.200 Neut % (Auto) 83.6 H Lymph % (Auto) 9.3 L [place] % (Auto) 5.9 Eos % (Auto) 0.9 Baso % (Auto) 0.1 Absolute Neuts (auto) 14.1 H Absolute Lymphs (auto) 1.58 Total Counted Not Reportable Sodium 132 L Potassium 4.5 Chloride 97 L Carbon Dioxide 22.0 Anion Gap 13 BUN 32 H Creatinine 4.30 H Estim Creat Clear Calc 17.45 Est GFR (MDRD) Af Amer 14 L Est GFR (MDRD) Non-Af 12 L BUN/Creatinine Ratio 7.4 L Glucose 210 H Calcium 7.8 L Phosphorus Magnesium Total Bilirubin 0.50 AST 97 H ALT 43 Alkaline Phosphatase 57 Total Creatine Kinase Total Protein 6.8 Albumin 3.1 L Globulin 3.7 Albumin/Globulin Ratio 0.8 L Ur Random Sodium 32 MRSA (PCR) 04/28/18 04:22 WBC RBC Hgb Hct MCV MCH MCHC RDW RDW Differential Plt Count MPV Immature Gran % (Auto) Neut % (Auto) Lymph % (Auto) [place] % (Auto) Eos % (Auto) Baso % (Auto) Absolute Neuts (auto) Absolute Lymphs (auto) Total Counted Sodium Potassium Chloride Carbon Dioxide Anion Gap BUN Creatinine Estim Creat Clear Calc Est GFR (MDRD) Af Amer Est GFR (MDRD) Non-Af BUN/Creatinine Ratio Glucose Calcium Phosphorus Magnesium Total Bilirubin AST ALT Alkaline Phosphatase Total Creatine Kinase 2337 H Total Protein Albumin Globulin Albumin/Globulin Ratio Ur Random Sodium MRSA (PCR) POC Glucose 04/28/18 04/28/18 04/27/18 06:03 03:10 22:06 POC Glucose 180 H 198 H 201 H Clinical Impression(s) from Imaging Studies Chest X-Ray 04/27/18 16:38 IMPRESSION: Normal x-ray examination of the chest. Electronically Signed: Aysha Jimenez MD at 18:39 EDT Tel , Service support , Abdomen X-Ray 04/27/18 17:45 IMPRESSION: Mild gaseous distention of the colon, without high-grade obstruction or obvious cutoff. If there is continued clinical concern, CT of the abdomen is advised. Electronically Signed: Aysha Jimenez MD at 18:44 EDT Tel , Service support , Chest X-Ray 04/28/18 00:35 IMPRESSION: There is NO acute cardiopulmonary abnormality. The central venous catheter is in good position. There is NO visible pneumothorax. Electronically Signed: Domo Boston MD at 1:15 EDT , Service support , Brain CT 04/28/18 22:35 IMPRESSION: Normal unenhanced CT scan of the brain. Electronically Signed: Domo Boston MD at 1:25 EDT , Service support , Assessment/Plan Active and Suspected Problems (Last Reviewed 04/22/18 @ 17:51 by Sofia Wong) BAMBI (acute kidney injury) (Acute) Acute metabolic encephalopathy (Acute) RECOMMENDATIONS: 1. Resend stat TSH and initiate IV replacement of significantly elevated. 2. Check blood and urine cultures. Initiate empiric Zosyn, given negative MRSA serology. 3. Check serum lactate level. 4. Hold sedating medications. 5. Continue Levophed to maintain a mean arterial pressure at or above 65 mmHg. 6. Check troponin level along with surface echocardiogram. 7. Obtain arterial blood gas if the patient becomes lethargic once again. 8. Initiate empiric BiPAP therapy 14/6 cm of water with naps and nightly. IMPRESSIONS: 1. Distributive shock versus overt hypothyroidism Unclear infectious source at this time. Regardless, the patient has been adequately volume resuscitated and will remain on Levophed to maintain a mean arterial pressure at or above 65 mmHg. Empiric broad-spectrum antibiotics will be continued, pending infectious workup. It is also possible that the patient' s overt hypothyroidism may be contributing to her current state of hemodynamic instability. IV Synthroid to be administered today, as the patient is unable to tolerate p.o. intake. We will also plan to check serum cortisol level for potential concomittent adrenal insufficiency. 2. Acute on chronic kidney disease Unclear etiology for the patient's worsening renal function. CK is elevated, although this could be related to the patient's hypothyroidism as well. We will continue to hold nephrotoxic agents, including lisinopril and diuretics. Continue gentle IV fluid hydration as tolerated. Nephrology is following. 3. Metabolic encephalopathy Likely multifactorial in etiology with underlying overt hypothyroidism, possible polypharmacy and questionable hypercarbia contributing. Sedating medications are currently on hold. We will plan to check arterial blood gas and initiate empiric BiPAP therapy with naps and nightly. Continue gentle IV fluid hydration. IV Synthroid to be administered today to address the patient' s hypothyroidism. If she is able to tolerate p.o. intake tomorrow, Synthroid can be transitioned to p.o. route. 4. Elevated CK Possible mild rhabdo versus effects of untreated hypothyroidism. We will continue gentle IV fluid hydration with half-normal saline. Recheck CK tomorrow. 5. Suspected sleep disordered breathing The patient certainly demonstrates signs and symptoms concerning for underlying obstructive sleep apnea. She will be placed empirically on BiPAP with a pressure support of 14/6 cm of water with naps and nightly. 6. Personal history of chronic pain syndrome/diabetes/depression/hypothyroidism /morbid obesity Complicates care, management, recovery and prognosis. Continue Accu-Cheks and sliding scale insulin coverage every 6 hours for now. Continue to hold sedating medications. ADDENDUM: Throughout the late morning and early afternoon hours, the patient was noted to be increasingly lethargic and less responsive. Arterial blood gas revealed acute CO2 retention, for which the patient was placed on BiPAP therapy. Despite several hours of noninvasive positive pressure ventilation, the patient remained lethargic and hypercarbic. I discussed these findings with the patient 's at the bedside, including my suggestion to proceed with intubation. The patient's was in agreement to proceed accordingly. Bedside Intubation Documentation: The patient was placed in appropriate sniffing position. She was premedicated with 4 mg of Versed. 100 mcg of fentanyl was administered and the patient was preoxygenated via bag valve mask. Video laryngoscopy was performed and revealed a grade 2 view. #7.5 endotracheal tube was then placed without difficulty. Breath sounds were noted to be equal bilaterally. Bedside Arterial Line Placement: The patient?s left wrist was prepped and draped in sterile fashion. An 18G [place] arterial line was introduced into the radial artery. The catheter was threaded over the guide wire and the needle was removed with appropriate pulsatile blood return. The catheter was then sutured in place to the skin and a sterile dressing applied. Perfusion to the extremity distal to the point of catheter insertion was checked and found to be adequate. ULTRASOUND GUIDANCE STATEMENT (Vascular Access): I performed ultrasound image acquisition and interpretation for needle placement during this procedure. The vessel was identified and was found to be free of thrombosis by compression technique. A safe point of entry was marked at the skin and an angle for access was determined. The needle was guided by obtaining free flowing fluid and by real time visualization. TIME: 85 minutes of critical care time, inclusive of procedures, was spent addressing the patient's distributive shock versus overt hypothyroidism, acute on chronic kidney disease, metabolic encephalopathy, elevated CK, suspected sleep disordered breathing, review of all data and collaboration with the care team. ( [id number], [id number]) Code Visit Procedures: 71559 Critial Care Addl 30 Min 9xxxx: [id number] Critical care first hour
--- NOTE | 2018-04-28 06:49 | PN_ITS ---
Patient Problems: Active and Suspected Problems (Last Reviewed 04/22/18 @ 17:51 by Sofia Wong) BAMBI (acute kidney injury) (Acute) Acute metabolic encephalopathy (Acute) Subjective: [employer] called on floor due to unresponsiveness (mental status change) and hypotension difficulty despite numerous attempts to gain IV access Pt transferred to ER for central venous line placement, labs drawn in ER EKG done WNL, CT head no acute findings transferred to ICU. Pt became more alert and agitated in the unit and required a dose of Haldol to settle her down. She has a known psych history and often has these presentations according to nursing staff. Labs reviewed Vitals/I&O's: Vital Signs Temp Pulse Resp BP Pulse Ox 98 F 99 13 94/61 97 04/28/18 03:00 04/28/18 06:00 04/28/18 03:00 04/28/18 03:00 04/28/18 03:00 Oxygen Delivery Method Room Air Weight: 375 lb 0.101 oz Body Mass Index (BMI) 55.3 Intake and Output for Last 24 Hours 04/26/18 04/27/18 04/28/18 23:59 23:59 23:59 Intake Total 1500 / 1500 3973 / 3973 Output Total 500 / 500 500 / 500 Balance 1000 / 1000 3473 / 3473 General: Lethargic, Non-Cooperative HEENT: Atraumatic, Normocephalic Lungs: Clear to auscultation, No rhonchi, No wheeze, No rales Cardiovascular: Regular rate, Normal S1, Normal S2 Abdomen: Bowel Sounds Present, Obese Extremities: No edema Neurological: Muscle tone normal Laboratory Results 04/27/18 22:06: POC Glucose 201 H 04/28/18 00:05: WBC 19.1 H, RBC 3.04 L, Hgb 10.4 L, Hct 30.6 L, MCV 100.7 H, MCH 34.2 H, MCHC 34.0, RDW 13.9, RDW Differential 49.6 H, Plt Count 243, MPV 10.0, Immature Gran % (Auto) 0.400, Neut % (Auto) 84.9 H, Lymph % (Auto) 9.2 L, Harnett % (Auto) 4.5, Eos % (Auto) 0.8, Baso % (Auto) 0.2, Absolute Neuts (auto) 16.2 H, Absolute Lymphs (auto) 1.75, Total Counted Not Reportable 04/28/18 00:05: Sodium 130 L, Potassium 4.2, Chloride 96 L, Carbon Dioxide 21.0 , Anion Gap 13, BUN 31 H, Creatinine 4.48 H, Estim Creat Clear Calc 16.75, Est GFR (MDRD) Af Amer 14 L, Est GFR (MDRD) Non-Af 11 L, BUN/Creatinine Ratio 6.9 L , Glucose 221 H, Calcium 7.9 L, Phosphorus 5.9 H, Magnesium 2.0 04/28/18 01:50: MRSA (PCR) Negative 04/28/18 03:10: POC Glucose 198 H 04/28/18 03:45: Ur Random Sodium 32 04/28/18 04:22: WBC 16.9 H, RBC 3.37 L, Hgb 11.2 L, Hct 33.8 L, MCV 100.3 H, MCH 33.2 H, MCHC 33.1, RDW 14.3, RDW Differential 52.8 H, Plt Count 247, MPV 9.6 , Immature Gran % (Auto) 0.200, Neut % (Auto) 83.6 H, Lymph % (Auto) 9.3 L, Harnett % (Auto) 5.9, Eos % (Auto) 0.9, Baso % (Auto) 0.1, Absolute Neuts (auto) 14.1 H, Absolute Lymphs (auto) 1.58, Total Counted Not Reportable 04/28/18 04:22: Sodium 132 L, Potassium 4.5, Chloride 97 L, Carbon Dioxide 22.0 , Anion Gap 13, BUN 32 H, Creatinine 4.30 H, Estim Creat Clear Calc 17.45, Est GFR (MDRD) Af Amer 14 L, Est GFR (MDRD) Non-Af 12 L, BUN/Creatinine Ratio 7.4 L , Glucose 210 H, Calcium 7.8 L, Total Bilirubin 0.50, AST 97 H, ALT 43, Alkaline Phosphatase 57, Total Protein 6.8, Albumin 3.1 L, Globulin 3.7, Albumin /Globulin Ratio 0.8 L 04/28/18 04:22: Total Creatine Kinase 2337 H 04/28/18 06:03: POC Glucose 180 H Current Medications Acetaminophen (Tylenol) 650 mg PO Q6H PRN PRN PRN Reason: Non-cardiac pain (mod-severe) Al Hydroxide/Mg Hydroxide (Mylanta Ii) 30 ml PO Q6H PRN PRN PRN Reason: Gastric burning Atorvastatin Calcium (Lipitor) 40 mg PO QHS [facility] Last Admin: 04/28/18 02:01 Dose: Not Given Heparin Sodium (Porcine) (Heparin Na) 5,000 unit SC Q8 [facility] Last Admin: 04/28/18 06:06 Dose: 5,000 unit Hydralazine HCl (Apresoline Iv) 10 mg IV Q4H PRN PRN PRN Reason: SBP > 160 Sodium Chloride () 1,000 mls @ 150 mls/hr IV .[id number] [facility] Last Admin: 04/28/18 02:03 Dose: 150 mls/hr Norepinephrine Bitartrate 8 mg (/ Dextrose) 258 mls @ 9.67 mls/hr IV .[id number] [facility] PRN Reason: 5 MCG/MIN Last Admin: 04/28/18 01:58 Dose: 9.67 mls/hr Insulin Human Lispro (Humalog Kwikpen (Bkc)) 0 unit SC ACHS [facility] PRN Reason: Protocol Last Admin: 04/28/18 03:12 Dose: Not Given Levothyroxine Sodium (Synthroid) 50 mcg PO DAILY@0600 [facility] Magnesium Hydroxide (Milk Of Magnesia) 30 ml PO DAILY PRN PRN PRN Reason: Constipation Ondansetron HCl (Zofran) 4 mg IV Q8H PRN PRN PRN Reason: NAUSEA Oxycodone HCl (Oxyir) 5 mg PO Q4H PRN PRN PRN Reason: SEVERE PAIN (6-10/10) Promethazine HCl (Phenergan) 12.5 mg IV Q6H PRN PRN PRN Reason: NAUSEA/VOMITING Sodium Chloride () 5 - 30 ml IV UD PRN PRN Reason: SALINE FLUSH Last Admin: 04/28/18 01:34 Dose: 30 ml Tamsulosin HCl (Flomax) 0.4 mg PO BID@0830,1730 [facility] Last Admin: 04/28/18 01:59 Dose: Not Given Topiramate (Topamax) 100 mg PO 5X/DAY [facility] Last Admin: 04/28/18 02:01 Dose: Not Given Venlafaxine HCl (Effexor Xr) 75 mg PO BID [facility] Last Admin: 04/28/18 02:01 Dose: Not Given Medical Necessity - Tobacco Use Smoking Status: Never smoker Tobacco Use: Non-smoker Assessment/Plan All Active Problems (Last Reviewed 04/22/18 @ 17:51 by Sofia Wong) Rhabdomyolysis (Acute) Migraine aura, persistent (Acute) BAMBI (acute kidney injury) (Acute) Acute metabolic encephalopathy (Acute) Hypokalemia (Acute) MRSA (methicillin resistant Staphylococcus aureus) (Acute) Acute respiratory failure (Acute) ARF (acute renal failure) (Acute) Hyperosmolarity due to secondary diabetes (Acute) Depression (Acute)
--- NOTE | 2018-04-28 06:56 | ECHOCS_ITS ---
Reason For Study: dyspnea/SOB Procedure This was a 2D Doppler, Color Flow transthoracic echocardiogram. The study was technically difficult. Due to obesity. Contrast injection was performed. Exam performed portable in ICU/CCU. Left Ventricle Normal size and thickness. The estimated ejection fraction is 75 %. Normal diastology for age. No regional wall motion abnormalities noted. Right Ventricle Possible RV apical strain pattern, c/w acute pulmonary embolus. Normal systolic function. Atria Normal left atrium. Normal right atrium. Normal atrial septum. Mitral Valve The mitral valve is structurally normal. No prolapse or stenosis seen. Tricuspid Valve Normal tricuspid valve. Trivial tricuspid valve insufficiency. Right ventricular systolic pressure estimated to be 24 mmHg. Aortic Valve Trisinus/trileaflet aortic valve. Pulmonic Valve Normal pulmonic valve. Great Vessels Normal aortic root. Normal arch. Normal inferior vena cava. Inferior vena cava collapse with sniff. Pericardium/Pleural No pericardial effusion. Medication Diluted definity 2.0ml given slow IV push to enhance endocardial definition. MMode/2D Measurements & Calculations LVIDd: 4.1 cm IVSd: 0.97 cm Ao root diam: 3.2 cm LVIDs: 2.4 cm LVPWd: 1.00 cm LA dimension: 3.0 cm RVDd: 2.6 cm FS: 40.5 % LAV(MOD-bp): 37.3 ml LA A4 area: 13.4 cm2 LAV(MOD-bp) Indexed: 13.8 ml/m2 LAV(MOD-sp2): 34.3 ml LAV(MOD-sp4): 34.6 ml Doppler Measurements & Calculations MV E max miguel: 72.1 cm/sec Lat Peak E' Miguel: 12.2 cm/sec Med Peak E' Miguel: 9.4 cm/sec MV A max miguel: 66.9 cm/sec E/E' lat: 5.9 E/E' med: 7.7 MV E/A: 1.1 Ao V2 max: 122.2 cm/sec LV V1 max: 112.3 cm/sec PA V2 max: 104.1 cm/sec Ao max P.0 mmHg LV V1 max P.0 mmHg TR max miguel: 220.2 cm/sec TR max P.4 mmHg Interpretation Summary The estimated ejection fraction is 75 %. Normal diastology for age. Trivial tricuspid valve insufficiency. Right ventricular systolic pressure estimated to be 24 mmHg. Possible RV apical strain pattern, c/w acute pulmonary embolus. Will notify Dr Hodges re: RV findings. The study was technically difficult. Contrast injection was performed. There is no comparison study available. Ordering Physician: John Hodges D.O. Referring Physician: Megha Hand M.D. Performed By: Jimena Melton RDCS, RVT
[2018-04-28 07:36] LABS: Lactic Acid 1.4 mmol/L (0.4-2.0)
[2018-04-28] MEDS: Topiramate 100 MG Tablet PO (08:04)
[2018-04-28] MEDS: Tamsulosin HCl 0.4 MG Capsule PO (08:05)
[2018-04-28] MEDS: Venlafaxine XR 75 MG Capsule PO (08:05)
[2018-04-28] MEDS: Piperacil/Tazobactam 3.375 GM/50 ML ML IV ×3 (08:06→22:22)
[2018-04-28 08:25] LABS: Bedside Glucose 179 mg/dL (70-110)
[2018-04-28] MEDS: Insulin Lispro 100 UNIT/ML INSULN.PEN SC ×4 (08:26→22:22)
[2018-04-28] MEDS: CHLORHEXIDINE GLUC 2% CLOTH 1 EACH TOWELETTE TOPICAL (08:59)
[2018-04-28] MEDS: LEVOTHYROXINE SODIUM 200 MCG VIAL 136 MCG IV (09:05)
--- NOTE | 2018-04-28 09:30 | CON.PCM_ITS ---
Consultation - Renal 04/28/18 PCP/ Referring MD: Requesting physician: [] Primary care physician: Megha Hand MD Reason for Consultation:: BAMBI - History of Present Illness History of Present Illness: The patient is a 42 year old F morbidly obese, with JAZMIN, DM type 2, HTN, HPL, bipolar disease, chronic pain syndrome, profound hypothyroidism admitted 04/27 for altered mental status. Tox screen positive for opiates. Pt fluctuating in and out of consciousness. Pt reported to be awake, responsive, now appears to be catatonic at time of my examination. She opens eyes to tactile stimuli but did not respond to questions or follow commands. She is on narcotics for unclear pain syndrome. She was hypotensive on admit started on iv fluids and pressors. Urine output has been marginal with elevated creatinine of 3.94 on admit to 4.4 yesterday, 4.3 today. She has leukocytosis WBC 18.9. She has a reported history of nausea, dry heaves, poor intake and diarrhea of unclear amount. CPK elevated at 2337 with TSH 90, cortisol 22.8. ABG showed CO2 retention. Sodium was low at 128 improved to 132 with iv fluids. She was started on iv antibx. and pancultured. Baseline creatinine 1.29 from 4.3 during last hospitalization in March 2018 with hyponatremia sodium 126. - Allergies Allergies: Allergies hydroxyzine [From Atarax] Allergy (Verified 04/27/18 09:55) Hives Sulfa (Sulfonamide Antibiotics) Allergy (Verified 04/27/18 09:55) Hives raspberry Adverse Reaction (Verified 04/27/18 09:55) Other migarine - Current Medications Current Medications: Current Medications Acetaminophen (Tylenol) 650 mg PO Q6H PRN PRN PRN Reason: Non-cardiac pain (mod-severe) Al Hydroxide/Mg Hydroxide (Mylanta Ii) 30 ml PO Q6H PRN PRN PRN Reason: Gastric burning Chlorhexidine Gluconate () 1 each TOPICAL DAILY [facility] Last Admin: 04/28/18 08:59 Dose: 1 each Heparin Sodium (Porcine) (Heparin Na) 5,000 unit SC Q8 [facility] Last Admin: 04/28/18 06:06 Dose: 5,000 unit Norepinephrine Bitartrate 8 mg (/ Dextrose) 258 mls @ 9.67 mls/hr IV .[id number] [facility] PRN Reason: 5 MCG/MIN Last Admin: 04/28/18 01:58 Dose: 9.67 mls/hr Piperacillin Sod/Tazobactam Sod (Zosyn) 3.375 gm in 50 mls @ 12.5 mls/hr IV Q8 [facility] Last Admin: 04/28/18 08:06 Dose: 12.5 mls/hr Insulin Human Lispro (Humalog Kwikpen (Bkc)) 0 unit SC ACHS [facility] PRN Reason: Protocol Last Admin: 04/28/18 08:26 Dose: 1 u Levothyroxine Sodium (Synthroid) 274 mcg PO DAILY@0600 [facility] Magnesium Hydroxide (Milk Of Magnesia) 30 ml PO DAILY PRN PRN PRN Reason: Constipation Ondansetron HCl (Zofran) 4 mg IV Q8H PRN PRN PRN Reason: NAUSEA Promethazine HCl (Phenergan) 12.5 mg IV Q6H PRN PRN PRN Reason: NAUSEA/VOMITING Sodium Chloride () 5 - 30 ml IV UD PRN PRN Reason: SALINE FLUSH Last Admin: 04/28/18 01:34 Dose: 30 ml Tamsulosin HCl (Flomax) 0.4 mg PO BID@0830,1730 [facility] Last Admin: 04/28/18 08:05 Dose: 0.4 mg Topiramate (Topamax) 100 mg PO 5X/DAY [facility] Last Admin: 04/28/18 08:04 Dose: 100 mg Venlafaxine HCl (Effexor Xr) 75 mg PO BID [facility] Last Admin: 04/28/18 08:05 Dose: 75 mg - Past Medical History Past Medical History (Chronic Problems): Chronic Problems (Last Reviewed 04/22/18 @ 17:51 by Sofia Wong) Morbid obesity (Chronic) Chronic pain syndrome (Chronic) Urinary retention with incomplete bladder emptying (Chronic) Insomnia (Chronic) Seasonal allergies (Chronic) Anxiety and depression (Chronic) Back problem (Chronic) Carpal tunnel syndrome (Chronic) Diabetes type 2, uncontrolled (Chronic) Frequent headaches (Chronic) HTN (hypertension) (Chronic) Fatty liver (Chronic) GERD (gastroesophageal reflux disease) (Chronic) Thyroid disease (Chronic) Fibromyalgia (Chronic) Diabetes mellitus (Chronic) Discussed with patient need to check BG consistently and routinely. Showed her how to check correctly along side of finger and how to improve chances of getting blood sample on low dial. She may be a candidate for leslie system, depending on insurance. We discussed importance of routine care and following medication plan. Her level of anxiety significantly reduce by end of appointment. Instructed to check BG in pairs over the next several days . Will obtain medical records - Past Surgical History Surgical History: - - Hernia repair, sinus surgery, thyroidectomy, , appendectomy, cholecystectomy, RUTH, cervical lymph node resection. - Social History Smoking Status: Never smoker Alcohol: None Drugs: None - Family History Maternal Family History: Family History (Last Reviewed 04/22/18 @ 17:51 by Sofia Wong) Mother Arthritis Breast cancer Heart disease Father Heart disease Alcohol abuse Blood clot in vein Sister Anxiety Depression Brother Anxiety History Items: No pertinent history Review of Systems Gastrointestinal: Reports: Diarrhea, Nausea, Vomiting - dry heaves Musculoskeletal: Reports: - - chronic pain syndrome Unable to obtain accurate/complete ROS d/t: pt catatonic, opens eyes to tactile stimuli, unable to provide history. Patient Problems: Active and Suspected Problems (Last Reviewed 04/22/18 @ 17:51 by Sofia Wong) BAMBI (acute kidney injury) (Acute) Acute metabolic encephalopathy (Acute) - Physical Exam General: Lethargic, - - morbidly obese HEENT: PERRLA Oral: Dry Mucosa Lungs: Clear to auscultation Cardiovascular: Regular rate Abdomen: Bowel Sounds Present, Soft, Non Tender, Non-Distended, Obese Extremities: No edema Skin: No rashes Musculoskeletal: No Muscle Wasting Neurological: - - pt not following commands Psych/Mental Status: - - unresponsive Vital Signs Temp Pulse Resp BP Pulse Ox 98.6 F 110 H 21 H 91/67 99 04/28/18 06:00 04/28/18 07:00 04/28/18 07:00 04/28/18 07:00 04/28/18 07:00 Oxygen Delivery Method Room Air Weight: 170.1 kg Body Mass Index (BMI) 55.3 Intake and Output for Last 24 Hours 04/26/18 04/27/18 04/28/18 23:59 23:59 23:59 Intake Total 1500 / 1500 3973 / 3973 Output Total 500 / 500 500 / 500 Balance 1000 / 1000 3473 / 3473 Laboratory Tests Past 24 Hrs 09/07/0504/28/18 04/28/18 00:05 00:05 01:50 WBC 19.1 H RBC 3.04 L Hgb 10.4 L Hct 30.6 L MCV 100.7 H MCH 34.2 H MCHC 34.0 RDW 13.9 RDW Differential 49.6 H Plt Count 243 MPV 10.0 Immature Gran % (Auto) 0.400 Neut % (Auto) 84.9 H Lymph % (Auto) 9.2 L Fisher % (Auto) 4.5 Eos % (Auto) 0.8 Baso % (Auto) 0.2 Absolute Neuts (auto) 16.2 H Absolute Lymphs (auto) 1.75 Total Counted Not Reportable Sodium 130 L Potassium 4.2 Chloride 96 L Carbon Dioxide 21.0 Anion Gap 13 BUN 31 H Creatinine 4.48 H Estim Creat Clear Calc 16.75 Est GFR (MDRD) Af Amer 14 L Est GFR (MDRD) Non-Af 11 L BUN/Creatinine Ratio 6.9 L Glucose 221 H Lactic Acid Calcium 7.9 L Phosphorus 5.9 H Magnesium 2.0 Total Bilirubin AST ALT Alkaline Phosphatase Total Creatine Kinase Troponin I Total Protein Albumin Globulin Albumin/Globulin Ratio TSH Cortisol Ur Random Sodium MRSA (PCR) Negative 04/28/18 04/28/18 04/28/18 03:45 04:22 04:22 WBC 16.9 H RBC 3.37 L Hgb 11.2 L Hct 33.8 L MCV 100.3 H MCH 33.2 H MCHC 33.1 RDW 14.3 RDW Differential 52.8 H Plt Count 247 MPV 9.6 Immature Gran % (Auto) 0.200 Neut % (Auto) 83.6 H Lymph % (Auto) 9.3 L Fisher % (Auto) 5.9 Eos % (Auto) 0.9 Baso % (Auto) 0.1 Absolute Neuts (auto) 14.1 H Absolute Lymphs (auto) 1.58 Total Counted Not Reportable Sodium 132 L Potassium 4.5 Chloride 97 L Carbon Dioxide 22.0 Anion Gap 13 BUN 32 H Creatinine 4.30 H Estim Creat Clear Calc 17.45 Est GFR (MDRD) Af Amer 14 L Est GFR (MDRD) Non-Af 12 L BUN/Creatinine Ratio 7.4 L Glucose 210 H Lactic Acid Calcium 7.8 L Phosphorus Magnesium Total Bilirubin 0.50 AST 97 H ALT 43 Alkaline Phosphatase 57 Total Creatine Kinase Troponin I Total Protein 6.8 Albumin 3.1 L Globulin 3.7 Albumin/Globulin Ratio 0.8 L TSH Cortisol Ur Random Sodium 32 MRSA (PCR) 04/28/18 04/28/18 04/28/18 04:22 07:05 07:05 WBC RBC Hgb Hct MCV MCH MCHC RDW RDW Differential Plt Count MPV Immature Gran % (Auto) Neut % (Auto) Lymph % (Auto) Fisher % (Auto) Eos % (Auto) Baso % (Auto) Absolute Neuts (auto) Absolute Lymphs (auto) Total Counted Sodium Potassium Chloride Carbon Dioxide Anion Gap BUN Creatinine Estim Creat Clear Calc Est GFR (MDRD) Af Amer Est GFR (MDRD) Non-Af BUN/Creatinine Ratio Glucose Lactic Acid 1.4 Calcium Phosphorus Magnesium Total Bilirubin AST ALT Alkaline Phosphatase Total Creatine Kinase 2337 H Troponin I Total Protein Albumin Globulin Albumin/Globulin Ratio TSH 90.60 H Cortisol Ur Random Sodium MRSA (PCR) 04/28/18 04/28/18 07:05 07:05 WBC RBC Hgb Hct MCV MCH MCHC RDW RDW Differential Plt Count MPV Immature Gran % (Auto) Neut % (Auto) Lymph % (Auto) Fisher % (Auto) Eos % (Auto) Baso % (Auto) Absolute Neuts (auto) Absolute Lymphs (auto) Total Counted Sodium Potassium Chloride Carbon Dioxide Anion Gap BUN Creatinine Estim Creat Clear Calc Est GFR (MDRD) Af Amer Est GFR (MDRD) Non-Af BUN/Creatinine Ratio Glucose Lactic Acid Calcium Phosphorus Magnesium Total Bilirubin AST ALT Alkaline Phosphatase Total Creatine Kinase Troponin I < 0.015 Total Protein Albumin Globulin Albumin/Globulin Ratio TSH Cortisol Pending Ur Random Sodium MRSA (PCR) POC Glucose 04/28/18 04/28/18 04/28/18 08:22 06:03 03:10 POC Glucose 179 H 180 H 198 H 04/27/18 22:06 POC Glucose 201 H Clinical Impression(s) from Imaging Studies Chest X-Ray 04/27/18 16:38 IMPRESSION: Normal x-ray examination of the chest. Electronically Signed: Aysha Jimenez MD at 18:39 EDT Tel , Service support , Abdomen X-Ray 04/27/18 17:45 IMPRESSION: Mild gaseous distention of the colon, without high-grade obstruction or obvious cutoff. If there is continued clinical concern, CT of the abdomen is advised. Electronically Signed: Aysha Jimenez MD at 18:44 EDT Tel , Service support , Chest X-Ray 04/28/18 00:35 IMPRESSION: There is NO acute cardiopulmonary abnormality. The central venous catheter is in good position. There is NO visible pneumothorax. Electronically Signed: Domo Boston MD at 1:15 EDT , Service support , Brain CT 04/28/18 22:35 IMPRESSION: Normal unenhanced CT scan of the brain. Electronically Signed: Domo Boston MD at 1:25 EDT , Service support , Assessment/Plan All Active Problems (Last Reviewed 04/22/18 @ 17:51 by Sofia Wong) Rhabdomyolysis (Acute) Migraine aura, persistent (Acute) BAMBI (acute kidney injury) (Acute) Acute metabolic encephalopathy (Acute) Hypokalemia (Acute) MRSA (methicillin resistant Staphylococcus aureus) (Acute) Acute respiratory failure (Acute) ARF (acute renal failure) (Acute) Hyperosmolarity due to secondary diabetes (Acute) Depression (Acute) 1. BAMBI with creatinine 4.3 suspect from ATN from rhabdomyolysis, ischemic ATN. Creatinine baseline 1.29 in March 2018. FeNa >1.3 2. Hyponatremia continue with iv fluids sodium 126 ot 132 3. Hypotension continue iv fluids, pressors, thyroid replacement 4. Altered mental status, CT head unremarkable. Metabolic encephalopathy due to narcotics, hypercapnea, renal failure, hypothyroidism 5. JAZMIN, hypercapnea on BIPAP, pulm mgmt 6. Profound hypothyroidism TSH 90. Primary care mgmt 7. Chronic pain syndrome on narcotics. Consider narcan 8. Morbid obesity
[2018-04-28] MEDS: 0.45% Normal Saline 1,000 ML 125 ML IV ×2 (09:42→17:55)
[2018-04-28 09:51] LABS: Allen Test POS; Base Excess -9 mmol/L (-2 to +2); Bicarbonate 19.2 mmol/L (22-26); Blood Gas Specimen Type ART; O2 Delivery Device Room Air; PO2 64 mmHG (75-100); SITE R Radial; SO2 86 % (95-99); Time Given 945; Total Carbon Dioxide 21 mmol/L; pCO2 49.8 mmHg (35-45); pH 7.19 (7.35-7.45)
--- NOTE | 2018-04-28 09:52 | PCM.PN.HOSP ---
Patient Problems: Active and Suspected Problems (Last Reviewed 04/22/18 @ 17:51 by Sofia Wong) BAMBI (acute kidney injury) (Acute) Acute metabolic encephalopathy (Acute) Subjective: Patient seen and examined. She was admitted with the complaint of nausea and dry heaving for 24 hours and decreased urine output for 48 hours. She had also had some loose stools over the week prior to admission. She is being managed for AK I, urinary retention and acute hyponatremia as well as acute encephalopathy likely due to AK and hyponatremia. Patient seen and examined. She was transferred to ICU overnight after she became hypotensive and confused. She had a central line placed overnight. Patient is currently confused at time of review and is only alert and oriented x1 to place. Unable to do compressive review of systems on account of patient's confusion. Labs and vitals reviewed. Vitals/I&O's: Vital Signs Temp Pulse Resp BP Pulse Ox 98.6 F 110 H 21 H 91/67 99 04/28/18 06:00 04/28/18 07:00 04/28/18 07:00 04/28/18 07:00 04/28/18 07:00 Oxygen Delivery Method Room Air Weight: 375 lb 0.101 oz Body Mass Index (BMI) 55.3 Intake and Output for Last 24 Hours 04/26/18 04/27/18 04/28/18 23:59 23:59 23:59 Intake Total 1500 / 1500 3973 / 3973 Output Total 500 / 500 500 / 500 Balance 1000 / 1000 3473 / 3473 General: Alert, Confused HEENT: Atraumatic, PERRLA, EOMI, Normocephalic Oral: Dry Mucosa Neck: Supple, No JVD, Negative Carotid Bruits Lungs: Clear to auscultation, Normal air movement, No rhonchi, No wheeze, No rales Cardiovascular: Regular rate, Regular Rhythm, Normal S1, Normal S2, No murmurs Abdomen: Bowel Sounds Present, Soft, Non Tender, Non-Distended, No Hepato-splenomegaly Extremities: No clubbing, No cyanosis, No edema, Capillary Refill Less than 3 Seconds Skin: No rashes, No breakdown Musculoskeletal: No Tenderness to Palpation of Joints or Extremities Lymphatic: No Cervical, Supraclavicular, or Inguinal Adenopathy Neurological: Cranial nerves II-XII grossly intact, Motor Exam 5/5 strength throughout Psych/Mental Status: - - confused Laboratory Results 04/27/18 22:06: POC Glucose 201 H 04/28/18 00:05: WBC 19.1 H, RBC 3.04 L, Hgb 10.4 L, Hct 30.6 L, MCV 100.7 H, MCH 34.2 H, MCHC 34.0, RDW 13.9, RDW Differential 49.6 H, Plt Count 243, MPV 10.0, Immature Gran % (Auto) 0.400, Neut % (Auto) 84.9 H, Lymph % (Auto) 9.2 L, [facility] % (Auto) 4.5, Eos % (Auto) 0.8, Baso % (Auto) 0.2, Absolute Neuts (auto) 16.2 H, Absolute Lymphs (auto) 1.75, Total Counted Not Reportable 04/28/18 00:05: Sodium 130 L, Potassium 4.2, Chloride 96 L, Carbon Dioxide 21.0, Anion Gap 13, BUN 31 H, Creatinine 4.48 H, Estim Creat Clear Calc 16.75, Est GFR (MDRD) Af Amer 14 L, Est GFR (MDRD) Non-Af 11 L, BUN/Creatinine Ratio 6.9 L, Glucose 221 H, Calcium 7.9 L, Phosphorus 5.9 H, Magnesium 2.0 04/28/18 01:50: MRSA (PCR) Negative 04/28/18 03:10: POC Glucose 198 H 04/28/18 03:45: Ur Random Sodium 32 04/28/18 04:22: WBC 16.9 H, RBC 3.37 L, Hgb 11.2 L, Hct 33.8 L, MCV 100.3 H, MCH 33.2 H, MCHC 33.1, RDW 14.3, RDW Differential 52.8 H, Plt Count 247, MPV 9.6, Immature Gran % (Auto) 0.200, Neut % (Auto) 83.6 H, Lymph % (Auto) 9.[address] L, [facility] % (Auto) 5.9, Eos % (Auto) 0.9, Baso % (Auto) 0.1, Absolute Neuts (auto) 14.1 H, Absolute Lymphs (auto) 1.58, Total Counted Not Reportable 04/28/18 04:22: Sodium 132 L, Potassium 4.5, Chloride 97 L, Carbon Dioxide 22.0, Anion Gap 13, BUN 32 H, Creatinine 4.30 H, Estim Creat Clear Calc 17.45, Est GFR (MDRD) Af Amer 14 L, Est GFR (MDRD) Non-Af 12 L, BUN/Creatinine Ratio 7.4 L, Glucose 210 H, Calcium 7.8 L, Total Bilirubin 0.50, AST 97 H, ALT 43, Alkaline Phosphatase 57, Total Protein 6.8, Albumin 3.1 L, Globulin 3.7, Albumin/Globulin Ratio 0.8 L 04/28/18 04:22: Total Creatine Kinase 2337 H 04/28/18 06:03: POC Glucose 180 H 04/28/18 07:05: TSH 90.60 H 04/28/18 07:05: Lactic Acid 1.4 04/28/18 07:05: Troponin I < 0.015 04/28/18 07:05: Cortisol Pending 04/28/18 08:22: POC Glucose 179 H 04/28/18 09:46: Specimen Type ART, Sample Site R Radial, pH 7.19 L*, Bicarbonate Actual 19.2 L, POC Total CO2 21, Base Excess -9 L, O2 Saturation 86 L, ABG pCO2 49.8 H, ABG pO2 64 L, Aroldo Test POS, O2 Delivery Device Room Air, Blood Gas Notified Whom ICU MD, Blood Gas Notified Time 945 Diagnostic Data Abdomen X-Ray 04/27/18 17:45 IMPRESSION: Mild gaseous distention of the colon, without high-grade obstruction or obvious cutoff. If there is continued clinical concern, CT of the abdomen is advised. Electronically Signed: Aysha Jimenez MD at 18:44 EDT Tel , Service support , Chest X-Ray 04/28/18 00:35 IMPRESSION: There is NO acute cardiopulmonary abnormality. The central venous catheter is in good position. There is NO visible pneumothorax. Electronically Signed: Domo Boston MD at 1:15 EDT , Service support , Brain CT 04/28/18 22:35 IMPRESSION: Normal unenhanced CT scan of the brain. Electronically Signed: Domo Boston MD at 1:25 EDT , Service support , Current Medications Acetaminophen (Tylenol) 650 mg PO Q6H PRN PRN PRN Reason: Non-cardiac pain (mod-severe) Al Hydroxide/Mg Hydroxide (Mylanta Ii) 30 ml PO Q6H PRN PRN PRN Reason: Gastric burning Chlorhexidine Gluconate () 1 each TOPICAL DAILY NUNU Last Admin: 04/28/18 08:59 Dose: 1 each Heparin Sodium (Porcine) (Heparin Na) 5,000 unit SC Q8 NUNU Last Admin: 04/28/18 06:06 Dose: 5,000 unit Norepinephrine Bitartrate 8 mg (/ Dextrose) 258 mls @ 9.67 mls/hr IV .[id number] NUNU PRN Reason: 5 MCG/MIN Last Admin: 04/28/18 01:58 Dose: 9.67 mls/hr Piperacillin Sod/Tazobactam Sod (Zosyn) 3.375 gm in 50 mls @ 12.5 mls/hr IV Q8 NUNU Last Admin: 04/28/18 08:06 Dose: 12.5 mls/hr Sodium Chloride () 1,000 mls @ 125 mls/hr IV .Q8H NUNU Last Admin: 04/28/18 09:42 Dose: 125 mls/hr Insulin Human Lispro (Humalog Kwikpen (Bkc)) 0 unit SC ACHS [facility] PRN Reason: Protocol Last Admin: 04/28/18 08:26 Dose: 1 u Levothyroxine Sodium (Synthroid) 274 mcg PO DAILY@0600 NUNU Magnesium Hydroxide (Milk Of Magnesia) 30 ml PO DAILY PRN PRN PRN Reason: Constipation Ondansetron HCl (Zofran) 4 mg IV Q8H PRN PRN PRN Reason: NAUSEA Promethazine HCl (Phenergan) 12.5 mg IV Q6H PRN PRN PRN Reason: NAUSEA/VOMITING Sodium Chloride () 5 - 30 ml IV UD PRN PRN Reason: SALINE FLUSH Last Admin: 04/28/18 01:34 Dose: 30 ml Tamsulosin HCl (Flomax) 0.4 mg PO BID@0830,1730 [facility] Last Admin: 04/28/18 08:05 Dose: 0.4 mg Topiramate (Topamax) 100 mg PO 5X/DAY [facility] Last Admin: 04/28/18 08:04 Dose: 100 mg Venlafaxine HCl (Effexor Xr) 75 mg PO BID [facility] Last Admin: 04/28/18 08:05 Dose: 75 mg Medical Necessity - Tobacco Use Smoking Status: Never smoker Tobacco Use: Non-smoker Assessment/Plan All Active Problems (Last Reviewed 04/22/18 @ 17:51 by Sofia Wong) Rhabdomyolysis (Acute) Migraine aura, persistent (Acute) BAMBI (acute kidney injury) (Acute) Acute metabolic encephalopathy (Acute) Hypokalemia (Acute) MRSA (methicillin resistant Staphylococcus aureus) (Acute) Acute respiratory failure (Acute) ARF (acute renal failure) (Acute) Hyperosmolarity due to secondary diabetes (Acute) Depression (Acute) 1. Acute metabolic encephalopathy, likely due to BAMBI, hyponatremia and poorly controlled hypothyroidism patient confused and only AO x 1 (to person) Cr trended up to 4.30 today. Was 3.94 on admission; baseline ~ nephrology on board became confused overnight and required one dose of haldol. CT head done was negative. will monitor for resolution with treatment of BAMBI, hyponatremia and hypothyroidism 2. Acute hyponatremia Na was 128 on admission, now up to 132 likely hypotonic, hypovolemic hyponatremia from dehydration. TSH elevated at 163; was 90 on repeat; therefore uncontrolled hypothyroidism may also be a contributory factor will check serum osmolality on IVF NS for replacement; will monitor nephrology on board 3. Sepsis- source of infection is not clear SIRS criteria is 2/4- leucocytosis and tachypnea CXR was negative UA - 1+ bacteria, but was otherwise not very remarkable blood cultures and urine cultures pending currently on IV zosyn. MRSA screen was negative. 4. BAMBI likely pre-renal due to decreased intake Cr trended upwards to 4.30 toay Nephrology on board CPK also elevated at 2337; trend down slightly from admission recent kidney and bladder USG was normal await nephro rec's urine output only 1L since admission, in positive balance by 3.73L today 5. HYpothyroidism TSH is 90; was 163 initially says she doesnt take her synthroid because she was getting bad vibes about taking it to be started on IV synthroid. 6. Rhabdomyolysis: CPK elevated at around 3000 on admission. Trended down to 2337 today. On IV fluids. Will monitor. 7. Gastroenteritis: resolving. DOesnt complain of any diarrhea or vomiting overnight. Will monitor 8. Migraine headache: on topamax. Hold off on NSAIDs due to severe BAMBI 9. Hypertension: Was hypotensive overnight, requiring pressors. Blood pressure medications on hold. Continue IV fluids and resume blood pressure medications with hypotension results. 10. Anxiety, depression and bipolar disorder: On Effexor 75 mg twice daily. Total daily dose reduced by 50% due to renal function. 11. Chronic pain syndrome: on chronic narcotic therapy. Utox was positive for opiates. DVT prophylaxis: heparin Code status: full code This note was generated with [employer] dictation software. It may contain incorrect words, spelling, and punctuation that were not noted in checking the note before signing. Code Visit Inpatient E&M: 79024 Subs Hosp L3
--- NOTE | 2018-04-28 10:26 | PN_ITS ---
Patient Problems: Active and Suspected Problems (Last Reviewed 04/22/18 @ 17:51 by Sofia Wong) BAMBI (acute kidney injury) (Acute) Acute metabolic encephalopathy (Acute) Subjective: Patient seen and examined. She was admitted with the complaint of nausea and dry heaving for 24 hours and decreased urine output for 48 hours. She had also had some loose stools over the week prior to admission. She is being managed for AK I, urinary retention and acute hyponatremia as well as acute encephalopathy likely due to AK and hyponatremia. Patient seen and examined. She was transferred to ICU overnight after she became hypotensive and confused. She had a central line placed overnight. Patient is currently confused at time of review and is only alert and oriented x1 to place. Unable to do compressive review of systems on account of patient' s confusion. Labs and vitals reviewed. Vitals/I&O's: Vital Signs Temp Pulse Resp BP Pulse Ox 98.6 F 110 H 21 H 91/67 99 04/28/18 06:00 04/28/18 07:00 04/28/18 07:00 04/28/18 07:00 04/28/18 07:00 Oxygen Delivery Method Room Air Weight: 375 lb 0.101 oz Body Mass Index (BMI) 55.3 Intake and Output for Last 24 Hours 04/26/18 04/27/18 04/28/18 23:59 23:59 23:59 Intake Total 1500 / 1500 3973 / 3973 Output Total 500 / 500 500 / 500 Balance 1000 / 1000 3473 / 3473 General: Alert, Confused HEENT: Atraumatic, PERRLA, EOMI, Normocephalic Oral: Dry Mucosa Neck: Supple, No JVD, Negative Carotid Bruits Lungs: Clear to auscultation, Normal air movement, No rhonchi, No wheeze, No rales Cardiovascular: Regular rate, Regular Rhythm, Normal S1, Normal S2, No murmurs Abdomen: Bowel Sounds Present, Soft, Non Tender, Non-Distended, No Hepato- splenomegaly Extremities: No clubbing, No cyanosis, No edema, Capillary Refill Less than 3 Seconds Skin: No rashes, No breakdown Musculoskeletal: No Tenderness to Palpation of Joints or Extremities Lymphatic: No Cervical, Supraclavicular, or Inguinal Adenopathy Neurological: Cranial nerves II-XII grossly intact, Motor Exam 5/5 strength throughout Psych/Mental Status: - - confused Laboratory Results 04/27/18 22:06: POC Glucose 201 H 04/28/18 00:05: WBC 19.1 H, RBC 3.04 L, Hgb 10.4 L, Hct 30.6 L, MCV 100.7 H, MCH 34.2 H, MCHC 34.0, RDW 13.9, RDW Differential 49.6 H, Plt Count 243, MPV 10.0, Immature Gran % (Auto) 0.400, Neut % (Auto) 84.9 H, Lymph % (Auto) 9.2 L, [facility] % (Auto) 4.5, Eos % (Auto) 0.8, Baso % (Auto) 0.2, Absolute Neuts (auto) 16.2 H, Absolute Lymphs (auto) 1.75, Total Counted Not Reportable 04/28/18 00:05: Sodium 130 L, Potassium 4.2, Chloride 96 L, Carbon Dioxide 21.0 , Anion Gap 13, BUN 31 H, Creatinine 4.48 H, Estim Creat Clear Calc 16.75, Est GFR (MDRD) Af Amer 14 L, Est GFR (MDRD) Non-Af 11 L, BUN/Creatinine Ratio 6.9 L , Glucose 221 H, Calcium 7.9 L, Phosphorus 5.9 H, Magnesium 2.0 04/28/18 01:50: MRSA (PCR) Negative 04/28/18 03:10: POC Glucose 198 H 04/28/18 03:45: Ur Random Sodium 32 04/28/18 04:22: WBC 16.9 H, RBC 3.37 L, Hgb 11.2 L, Hct 33.8 L, MCV 100.3 H, MCH 33.2 H, MCHC 33.1, RDW 14.3, RDW Differential 52.8 H, Plt Count 247, MPV 9.6 , Immature Gran % (Auto) 0.200, Neut % (Auto) 83.6 H, Lymph % (Auto) 9.3 L, [facility] % (Auto) 5.9, Eos % (Auto) 0.9, Baso % (Auto) 0.1, Absolute Neuts (auto) 14.1 H, Absolute Lymphs (auto) 1.58, Total Counted Not Reportable 04/28/18 04:22: Sodium 132 L, Potassium 4.5, Chloride 97 L, Carbon Dioxide 22.0 , Anion Gap 13, BUN 32 H, Creatinine 4.30 H, Estim Creat Clear Calc 17.45, Est GFR (MDRD) Af Amer 14 L, Est GFR (MDRD) Non-Af 12 L, BUN/Creatinine Ratio 7.4 L , Glucose 210 H, Calcium 7.8 L, Total Bilirubin 0.50, AST 97 H, ALT 43, Alkaline Phosphatase 57, Total Protein 6.8, Albumin 3.1 L, Globulin 3.7, Albumin /Globulin Ratio 0.8 L 04/28/18 04:22: Total Creatine Kinase 2337 H 04/28/18 06:03: POC Glucose 180 H 04/28/18 07:05: TSH 90.60 H 04/28/18 07:05: Lactic Acid 1.4 04/28/18 07:05: Troponin I < 0.015 04/28/18 07:05: Cortisol Pending 04/28/18 08:22: POC Glucose 179 H 04/28/18 09:46: Specimen Type ART, Sample Site R Radial, pH 7.19 L*, Bicarbonate Actual 19.2 L, POC Total CO2 21, Base Excess -9 L, O2 Saturation 86 L, ABG pCO2 49.8 H, ABG pO2 64 L, Aroldo Test POS, O2 Delivery Device Room Air, Blood Gas Notified Whom ICU MD, Blood Gas Notified Time 945 Diagnostic Data Abdomen X-Ray 04/27/18 17:45 IMPRESSION: Mild gaseous distention of the colon, without high-grade obstruction or obvious cutoff. If there is continued clinical concern, CT of the abdomen is advised. Electronically Signed: Aysha Jimenez MD at 18:44 EDT Tel , Service support , Chest X-Ray 04/28/18 00:35 IMPRESSION: There is NO acute cardiopulmonary abnormality. The central venous catheter is in good position. There is NO visible pneumothorax. Electronically Signed: Domo Boston MD at 1:15 EDT , Service support , Brain CT 04/28/18 22:35 IMPRESSION: Normal unenhanced CT scan of the brain. Electronically Signed: Domo Boston MD at 1:25 EDT , Service support , Current Medications Acetaminophen (Tylenol) 650 mg PO Q6H PRN PRN PRN Reason: Non-cardiac pain (mod-severe) Al Hydroxide/Mg Hydroxide (Mylanta Ii) 30 ml PO Q6H PRN PRN PRN Reason: Gastric burning Chlorhexidine Gluconate () 1 each TOPICAL DAILY NUNU Last Admin: 04/28/18 08:59 Dose: 1 each Heparin Sodium (Porcine) (Heparin Na) 5,000 unit SC Q8 NUNU Last Admin: 04/28/18 06:06 Dose: 5,000 unit Norepinephrine Bitartrate 8 mg (/ Dextrose) 258 mls @ 9.67 mls/hr IV .[id number] NUNU PRN Reason: 5 MCG/MIN Last Admin: 04/28/18 01:58 Dose: 9.67 mls/hr Piperacillin Sod/Tazobactam Sod (Zosyn) 3.375 gm in 50 mls @ 12.5 mls/hr IV Q8 NUNU Last Admin: 04/28/18 08:06 Dose: 12.5 mls/hr Sodium Chloride () 1,000 mls @ 125 mls/hr IV .Q8H NUNU Last Admin: 04/28/18 09:42 Dose: 125 mls/hr Insulin Human Lispro (Humalog Kwikpen (Bkc)) 0 unit SC ACHS [facility] PRN Reason: Protocol Last Admin: 04/28/18 08:26 Dose: 1 u Levothyroxine Sodium (Synthroid) 274 mcg PO DAILY@0600 NUNU Magnesium Hydroxide (Milk Of Magnesia) 30 ml PO DAILY PRN PRN PRN Reason: Constipation Ondansetron HCl (Zofran) 4 mg IV Q8H PRN PRN PRN Reason: NAUSEA Promethazine HCl (Phenergan) 12.5 mg IV Q6H PRN PRN PRN Reason: NAUSEA/VOMITING Sodium Chloride () 5 - 30 ml IV UD PRN PRN Reason: SALINE FLUSH Last Admin: 04/28/18 01:34 Dose: 30 ml Tamsulosin HCl (Flomax) 0.4 mg PO BID@0830,1730 [facility] Last Admin: 04/28/18 08:05 Dose: 0.4 mg Topiramate (Topamax) 100 mg PO 5X/DAY [facility] Last Admin: 04/28/18 08:04 Dose: 100 mg Venlafaxine HCl (Effexor Xr) 75 mg PO BID [facility] Last Admin: 04/28/18 08:05 Dose: 75 mg Medical Necessity - Tobacco Use Smoking Status: Never smoker Tobacco Use: Non-smoker Assessment/Plan All Active Problems (Last Reviewed 04/22/18 @ 17:51 by Sofia Wong) Rhabdomyolysis (Acute) Migraine aura, persistent (Acute) BAMBI (acute kidney injury) (Acute) Acute metabolic encephalopathy (Acute) Hypokalemia (Acute) MRSA (methicillin resistant Staphylococcus aureus) (Acute) Acute respiratory failure (Acute) ARF (acute renal failure) (Acute) Hyperosmolarity due to secondary diabetes (Acute) Depression (Acute) 1. Acute metabolic encephalopathy, likely due to BAMIB, hyponatremia and poorly controlled hypothyroidism * patient confused and only AO x 1 (to person) * Cr trended up to 4.30 today. Was 3.94 on admission; baseline ~ * nephrology on board * became confused overnight and required one dose of haldol. CT head done was negative. * will monitor for resolution with treatment of BAMBI, hyponatremia and hypothyroidism * 2. Acute hyponatremia * Na was 128 on admission, now up to 132 * likely hypotonic, hypovolemic hyponatremia from dehydration. TSH elevated at 163; was 90 on repeat; therefore uncontrolled hypothyroidism may also be a contributory factor * will check serum osmolality * on IVF NS for replacement; will monitor * nephrology on board * 3. Sepsis- source of infection is not clear * SIRS criteria is 2/4- leucocytosis and tachypnea * CXR was negative * UA - 1+ bacteria, but was otherwise not very remarkable * blood cultures and urine cultures pending * currently on IV zosyn. MRSA screen was negative. * 4. BAMBI likely pre-renal due to decreased intake * Cr trended upwards to 4.30 toay * Nephrology on board * CPK also elevated at 2337; trend down slightly from admission * recent kidney and bladder USG was normal * await nephro rec's * urine output only 1L since admission, in positive balance by 3.73L today * 5. HYpothyroidism * TSH is 90; was 163 initially * says she doesnt take her synthroid because she was getting bad vibes about taking it * to be started on IV synthroid. * 6. Rhabdomyolysis: * CPK elevated at around 3000 on admission. * Trended down to 2337 today. On IV fluids. Will monitor. * 7. Gastroenteritis: resolving. DOesnt complain of any diarrhea or vomiting overnight. Will monitor 8. Migraine headache: on topamax. Hold off on NSAIDs due to severe BAMBI 9. Hypertension: * Was hypotensive overnight, requiring pressors. * Blood pressure medications on hold. * Continue IV fluids and resume blood pressure medications with hypotension results. * 10. Anxiety, depression and bipolar disorder: On Effexor 75 mg twice daily. Total daily dose reduced by 50% due to renal function. 11. Chronic pain syndrome: on chronic narcotic therapy. Utox was positive for opiates. DVT prophylaxis: heparin Code status: full code This note was generated with [employer] dictation software. It may contain incorrect words, spelling, and punctuation that were not noted in checking the note before signing. Code Visit Inpatient E&M: 07215 Subs Hosp L3
[2018-04-28 11:36] LABS: Allen Test POS; Base Excess -8 mmol/L (-2 to +2); Bicarbonate 20.5 mmol/L (22-26); Blood Gas Specimen Type ART; EPAP 6; FI02 50; IPAP 14; PO2 217 mmHG (75-100); RR 12; SITE R Radial; SO2 100 % (95-99); Time Given 1130; Total Carbon Dioxide 22 mmol/L; pCO2 53.6 mmHg (35-45); pH 7.19 (7.35-7.45)
[2018-04-28 12:20] LABS: Bedside Glucose 206 mg/dL (70-110)
[2018-04-28 13:26] LABS: Allen Test POS; Base Excess -8 mmol/L (-2 to +2); Bicarbonate 20.4 mmol/L (22-26); Blood Gas Specimen Type ART; EPAP 6; FI02 35; IPAP 14; PO2 98 mmHG (75-100); RR 16; SITE R Radial; SO2 95 % (95-99); Time Given 1325; Total Carbon Dioxide 22 mmol/L; pCO2 55.2 mmHg (35-45); pH 7.18 (7.35-7.45)
[2018-04-28] MEDS: Midazolam 2 MG/2 ML Syringe 4 MG IV (13:56)
[2018-04-28] MEDS: fentaNYL 100 MCG/2 ML Ampul IV (13:58)
--- NOTE | 2018-04-28 14:10 | NURSING ---
Dr Hodges at bedside, decision to intubate previously made by Dr Hodges after patient did not adequately respond to Bipap. Dr Hodges spoke with patients at the bedside to explain procedure and concerns and answered questions. Patient was sedated with fentanyl and versed and intubated without complication per Dr Hodges, OG tube inserted, Art line placed by Dr Hodges after intubation, patient tolerated without complication.Following intubation and Art line insertion, patient appears to be resting comfortably, vitals stable on current settings.
[2018-04-28] MEDS: Propofol 10MG/Ml 1,000 MG/100 ML Bottle 5.103 MG CONT INF ×2 (14:12→20:08)
--- NOTE | 2018-04-28 14:36 | RAD_ITS ---
STUDY: X-RAY CHEST REASON FOR EXAM: Female, 42 years old. Endotracheal tube and orogastric tube placement. TECHNIQUE: Single AP portable view of the chest. COMPARISON: Comparison is made with prior examination done earlier in the day at 12:38 AM. FINDINGS: The tip of the endotracheal tube is at 3.8 cm proximal to the melissa. The tip of the orogastric tube is in the fundal portion of the stomach. EKG electrodes are seen. A right-sided subclavian line is in situ with the tip at the junction of the superior vena cava and right atrium. The lungs are clear and expanded. There is no demonstrated pleural abnormality. Normal size heart. Normal mediastinum and galina. Normal visualized pulmonary arteries. Normal visualized aortic arch and descending thoracic aorta. Normal visualized thoracic spine. Normal visualized ribs, clavicles, and shoulders. There is no demonstrated abnormality of the visualized soft tissue structures of the upper abdomen. RAD/Chest 1 View (Portable) IMPRESSION: All the support tubes are in good position. Electronically Signed: Feliz Nino MD at 15:14 EDT Tel [phone], Service support ,
[2018-04-28] MEDS: Venlafaxine HCl 75 MG Tablet 37.5 MG PO ×2 (17:35→22:25)
[2018-04-28 17:40] LABS: Bedside Glucose 199 mg/dL (70-110)
[2018-04-28] MEDS: Hydrocortisone Sod Succinate 100 MG/2 ML Vial 50 MG IV (17:57)
[2018-04-28 18:17] LABS: CPK Total, Creatine Kinase 2218 U/L (26-192); Triglycerides 118 mg/dL
[2018-04-28] MEDS: Topiramate 100 MG Tablet GT (22:24)
--- NOTE | 2018-04-28 22:35 | CT_ITS ---
STUDY: CT BRAIN WITHOUT CONTRAST REASON FOR EXAM: Female, 42 years old. Mental status changes RADIATION DOSAGE (If Supplied By Facility): CTDIvol = ( 44.99 ) mGy, DLP = ( 863.60 ) mGycm TECHNIQUE: Transaxial CT imaging of the brain was performed without administration of intravenous contrast material. Individualized dose optimization techniques were used for this CT. COMPARISON: None. FINDINGS: Normal soft tissue structures. Normal calvarium. Normal size ventricles and extra-axial spaces for the patient's age. Normal white matter tracts of the cerebral hemispheres. Normal basal ganglia and thalami. Normal brainstem. Normal cerebellum. There is no intracranial hemorrhage. There are no findings of an acute ischemic infarction. Normal visualized paranasal sinuses. CT/Brain/Head without Contrast IMPRESSION: Normal unenhanced CT scan of the brain. Electronically Signed: Domo Boston MD at 1:25 EDT , Service support ,
[2018-04-28 22:40] LABS: Bedside Glucose 217 mg/dL (70-110)
[2018-04-29] VITALS (55 sets, daily range): BP systolic 86–138; BP diastolic 49–89; PULSE 73–97; RESP 16–24; TEMP 36.3–37.2; O2SAT 94–100
[2018-04-29] MEDS: Hydrocortisone Sod Succinate 100 MG/2 ML Vial 50 MG IV ×4 (00:48→17:45)
[2018-04-29] MEDS: Propofol 10MG/Ml 1,000 MG/100 ML Bottle 5.103 MG CONT INF ×4 (00:51→19:21)
[2018-04-29] MEDS: 0.45% Normal Saline 1,000 ML 125 ML IV ×3 (00:51→17:44)
--- NOTE | 2018-04-29 02:54 | NURSING ---
Bed scale is not operational.
[2018-04-29] MEDS: CHLORHEXIDINE GLUC 2% CLOTH 1 EACH TOWELETTE TOPICAL (04:03)
[2018-04-29 04:57] LABS: Absolute Lymphocyte Count 1.07 X10^3/ul (0.83-4.51); Basophil# 0.02 X10^3/uL; Basophil% 0.1 % (0-1); Eosinophil# 0.03 X10^3/uL; Eosinophils% 0.2 % (0-5); Hematocrit 31.8 % (37-47); Hemoglobin 11.3 g/dl (12.0-15.0); Lymphocyte # 1.07 X10^3/ul (4.0); Mean Corp Hgb Conc 35.5 g/gl (32-36); Mean Corpuscular Hgb 34.6 pg (27.0-32.0); Mean Corpuscular Volume 97.2 fL (81-99); Mean Platelet Vol. 9.8 fl (6.2-12.0); Monocyte# 0.53 X10^3/uL; Neutrophil # 16.02 X10^3/uL (2.7-7.7); Neutrophil % 90.1 % (47-70); Platelet Count 260 K/mm3 (150-450); RBC Distribution Width CV 13.9 % (11.6-14.6); RBC Distribution Width SD 46.8 fl (35.1-43.9); Red Blood Count 3.27 M/mm3 (4.2-5.4); White Blood Count 17.8 K/mm3 (4.4-11.0)
[2018-04-29 04:58] LABS: Differential Indicated SCAN CRITERIA MET; POSITIVE COUNT NO; POSITIVE DIFFERENTIAL NO; POSITIVE MORPHOLOGY YES
--- NOTE | 2018-04-29 05:03 | CPS ---
BP MED STILL AT 20, PER PROTOCOL MUST BE 5 OR LESS. NO WEANING TRIAL STARTED.
[2018-04-29 05:07] LABS: Albumin, Serum 2.7 g/dL (3.2-5.0); BUN 28 mg/dL (7-18); BUN/Creat Ratio 10.6 RATIO (10-20); Chloride 107 mmol/L (98-107); Creatinine, Serum 2.65 mg/dL (0.55-1.02); EST Glomerular Filtration Rate 21 mL/min (>60); Est Glom Filt Rate - Afr Amer 25 mL/min (>60); Estimated Creatinine Clearance 28.31 ml/min; Glucose 207 mg/dL (74-106); Phosphorus 3.4 mg/dL (2.5-4.9); Potassium 4.3 mmol/L (3.5-5.1); Sodium Level 140 mmol/L (136-145)
[2018-04-29] MEDS: Piperacil/Tazobactam 3.375 GM/50 ML ML IV ×3 (05:13→21:37)
[2018-04-29] MEDS: Heparin Injection (Vial) 5,000 UNIT/ML VIAL 5000 UNIT SC ×3 (05:15→21:36)
[2018-04-29] MEDS: Levothyroxine 137 MCG Tablet 274 MCG GT (05:18)
[2018-04-29 06:05] LABS: Base Excess -5 mmol/L (-2 to +2); Bicarbonate 20.6 mmol/L (22-26); Blood Gas Specimen Type ALINE; FI02 30; Mode A-C; O2 Delivery Device Vent; PEEP 5; PO2 101 mmHG (75-100); RR 16; SITE OTHER; SO2 98 % (95-99); Time Given 550; Total Carbon Dioxide 22 mmol/L; Vt 500; pCO2 35.1 mmHg (35-45); pH 7.38 (7.35-7.45)
--- NOTE | 2018-04-29 06:39 | PCM.PN.INT ---
Subjective: The patient was seen and examined at the bedside this morning. Events from the last 24 hours have been reviewed. The patient is currently afebrile, but remains on Levophed at 20 mcg to maintain hemodynamic stability. The patient's FiO2 requirement has been weaned down to 30%. Arterial blood gas this morning revealed improved gas exchange with a normal pH and PCO2. The patient is alert and appropriately interactive. She remains mechanically ventilated. The patient put out over 7 L of urine overnight. Objective: The patient's most recent lab work, culture data and imaging studies have all been personally reviewed. Blood and urine cultures are pending. General: - - Intubated, sedated and mechanically ventilated. HEENT: Atraumatic, PERRLA, Normocephalic Oral: No Gingival or Mucosal Lesions/ Ulcerations, - - Endotracheal and OG tubes remain in place. Neck: Supple, No Nodes, Trachea Midline, - - Right subclavian central venous catheter in place Lungs: No rhonchi, No wheeze, No rales, - - Mechanical breath sounds anteriorly Cardiovascular: Regular rate, Regular Rhythm, Normal S1, Normal S2, No murmurs Abdomen: Bowel Sounds Present, Soft, Non Tender, Obese Extremities: No clubbing, No cyanosis, No edema Skin: No breakdown Musculoskeletal: No Tenderness to Palpation of Joints or Extremities, No Muscle Wasting Lymphatic: No Cervical, Supraclavicular, or Inguinal Adenopathy Neurological: - - No focal neurological deficits. Attempts to move all extremities spontaneously. Alert and following simple commands. Vital Signs Temp Pulse Resp BP Pulse Ox 99.0 F 94 16 123/74 H 96 04/29/18 04:00 04/29/18 06:00 04/29/18 06:00 04/29/18 06:00 04/29/18 06:00 Oxygen Delivery Method Mechanical Ventilator Weight: 375 lb 0.101 oz Body Mass Index (BMI) 55.3 Intake and Output for Last 24 Hours 04/27/18 04/28/18 04/29/18 23:59 23:59 23:59 Intake Total 1500 / 1500 6965.1 / 6965.1 1219 / 1219 Output Total 500 / 500 7400 / 7400 2700 / 2700 Balance 1000 / 1000 -434.9 / -434.9 -1481 / -1481 Labs (Last 48 Hours) 04/27/18 04/28/1804/28/18 22:06 00:05 00:05 WBC 19.1 H RBC 3.04 L Hgb 10.4 L Hct 30.6 L MCV 100.7 H MCH 34.2 H MCHC 34.0 RDW 13.9 RDW Differential 49.6 H Plt Count 243 MPV 10.0 Immature Gran % (Auto) 0.400 Neut % (Auto) 84.9 H Lymph % (Auto) 9.2 L [place] % (Auto) 4.5 Eos % (Auto) 0.8 Baso % (Auto) 0.2 Absolute Neuts (auto) 16.2 H Absolute Lymphs (auto) 1.75 Total Counted Not Reportable Specimen Type Sample Site pH Bicarbonate Actual POC Total CO2 Base Excess O2 Saturation O2 % ABG pCO2 ABG pO2 Aroldo Test Respiration Rate O2 Delivery Device Minute Volume Vent Mode Tidal Volume POC PEEP EPAP IPAP Blood Gas Notified Whom Blood Gas Notified Time Sodium 130 L Potassium 4.2 Chloride 96 L Carbon Dioxide 21.0 Anion Gap 13 BUN 31 H Creatinine 4.48 H Estim Creat Clear Calc 16.75 Est GFR (MDRD) Af Amer 14 L Est GFR (MDRD) Non-Af 11 L BUN/Creatinine Ratio 6.9 L Glucose 221 H Lactic Acid Calcium 7.9 L Phosphorus 5.9 H Magnesium 2.0 Total Bilirubin AST ALT Alkaline Phosphatase Total Creatine Kinase Troponin I Total Protein Albumin Globulin Albumin/Globulin Ratio Triglycerides TSH Cortisol Ur Random Sodium MRSA (PCR) POC Glucose 201 H 04/28/18 04/28/18 04/28/18 01:50 03:10 03:45 WBC RBC Hgb Hct MCV MCH MCHC RDW RDW Differential Plt Count MPV Immature Gran % (Auto) Neut % (Auto) Lymph % (Auto) [place] % (Auto) Eos % (Auto) Baso % (Auto) Absolute Neuts (auto) Absolute Lymphs (auto) Total Counted Specimen Type Sample Site pH Bicarbonate Actual POC Total CO2 Base Excess O2 Saturation O2 % ABG pCO2 ABG pO2 Aroldo Test Respiration Rate O2 Delivery Device Minute Volume Vent Mode Tidal Volume POC PEEP EPAP IPAP Blood Gas Notified Whom Blood Gas Notified Time Sodium Potassium Chloride Carbon Dioxide Anion Gap BUN Creatinine Estim Creat Clear Calc Est GFR (MDRD) Af Amer Est GFR (MDRD) Non-Af BUN/Creatinine Ratio Glucose Lactic Acid Calcium Phosphorus Magnesium Total Bilirubin AST ALT Alkaline Phosphatase Total Creatine Kinase Troponin I Total Protein Albumin Globulin Albumin/Globulin Ratio Triglycerides TSH Cortisol Ur Random Sodium 32 MRSA (PCR) Negative POC Glucose 198 H 04/28/18 04/28/18 04/28/18 04:22 04:22 04:22 WBC 16.9 H RBC 3.37 L Hgb 11.2 L Hct 33.8 L MCV 100.3 H MCH 33.2 H MCHC 33.1 RDW 14.3 RDW Differential 52.8 H Plt Count 247 MPV 9.6 Immature Gran % (Auto) 0.200 Neut % (Auto) 83.6 H Lymph % (Auto) 9.3 L [place] % (Auto) 5.9 Eos % (Auto) 0.9 Baso % (Auto) 0.1 Absolute Neuts (auto) 14.1 H Absolute Lymphs (auto) 1.58 Total Counted Not Reportable Specimen Type Sample Site pH Bicarbonate Actual POC Total CO2 Base Excess O2 Saturation O2 % ABG pCO2 ABG pO2 Aroldo Test Respiration Rate O2 Delivery Device Minute Volume Vent Mode Tidal Volume POC PEEP EPAP IPAP Blood Gas Notified Whom Blood Gas Notified Time Sodium 132 L Potassium 4.5 Chloride 97 L Carbon Dioxide 22.0 Anion Gap 13 BUN 32 H Creatinine 4.30 H Estim Creat Clear Calc 17.45 Est GFR (MDRD) Af Amer 14 L Est GFR (MDRD) Non-Af 12 L BUN/Creatinine Ratio 7.4 L Glucose 210 H Lactic Acid Calcium 7.8 L Phosphorus Magnesium Total Bilirubin 0.50 AST 97 H ALT 43 Alkaline Phosphatase 57 Total Creatine Kinase 2337 H Troponin I Total Protein 6.8 Albumin 3.1 L Globulin 3.7 Albumin/Globulin Ratio 0.8 L Triglycerides TSH Cortisol Ur Random Sodium MRSA (PCR) POC Glucose 04/28/18 04/28/18 04/28/18 06:03 07:05 07:05 WBC RBC Hgb Hct MCV MCH MCHC RDW RDW Differential Plt Count MPV Immature Gran % (Auto) Neut % (Auto) Lymph % (Auto) [place] % (Auto) Eos % (Auto) Baso % (Auto) Absolute Neuts (auto) Absolute Lymphs (auto) Total Counted Specimen Type Sample Site pH Bicarbonate Actual POC Total CO2 Base Excess O2 Saturation O2 % ABG pCO2 ABG pO2 Aroldo Test Respiration Rate O2 Delivery Device Minute Volume Vent Mode Tidal Volume POC PEEP EPAP IPAP Blood Gas Notified Whom Blood Gas Notified Time Sodium Potassium Chloride Carbon Dioxide Anion Gap BUN Creatinine Estim Creat Clear Calc Est GFR (MDRD) Af Amer Est GFR (MDRD) Non-Af BUN/Creatinine Ratio Glucose Lactic Acid 1.4 Calcium Phosphorus Magnesium Total Bilirubin AST ALT Alkaline Phosphatase Total Creatine Kinase Troponin I Total Protein Albumin Globulin Albumin/Globulin Ratio Triglycerides TSH 90.60 H Cortisol Ur Random Sodium MRSA (PCR) POC Glucose 180 H 04/28/18 04/28/18 04/28/18 07:05 07:05 07:05 WBC RBC Hgb Hct MCV MCH MCHC RDW RDW Differential Plt Count MPV Immature Gran % (Auto) Neut % (Auto) Lymph % (Auto) [place] % (Auto) Eos % (Auto) Baso % (Auto) Absolute Neuts (auto) Absolute Lymphs (auto) Total Counted Specimen Type Sample Site pH Bicarbonate Actual POC Total CO2 Base Excess O2 Saturation O2 % ABG pCO2 ABG pO2 Aroldo Test Respiration Rate O2 Delivery Device Minute Volume Vent Mode Tidal Volume POC PEEP EPAP IPAP Blood Gas Notified Whom Blood Gas Notified Time Sodium Potassium Chloride Carbon Dioxide Anion Gap BUN Creatinine Estim Creat Clear Calc Est GFR (MDRD) Af Amer Est GFR (MDRD) Non-Af BUN/Creatinine Ratio Glucose Lactic Acid Calcium Phosphorus Magnesium Total Bilirubin AST ALT Alkaline Phosphatase Total Creatine Kinase 2218 H Troponin I < 0.015 Total Protein Albumin Globulin Albumin/Globulin Ratio Triglycerides 118 TSH Cortisol 22.80 H Ur Random Sodium MRSA (PCR) POC Glucose 04/28/18 04/28/18 04/28/18 08:22 09:46 11:29 WBC RBC Hgb Hct MCV MCH MCHC RDW RDW Differential Plt Count MPV Immature Gran % (Auto) Neut % (Auto) Lymph % (Auto) [place] % (Auto) Eos % (Auto) Baso % (Auto) Absolute Neuts (auto) Absolute Lymphs (auto) Total Counted Specimen Type ART ART Sample Site R Radial R Radial pH 7.19 L* 7.19 L* Bicarbonate Actual 19.2 L 20.5 L POC Total CO2 21 22 Base Excess -9 L -8 L O2 Saturation 86 L 100 H O2 % 50 ABG pCO2 49.8 H 53.6 H ABG pO2 64 L 217 H Aroldo Test POS POS Respiration Rate 12 O2 Delivery Device Room Air Bi / C PAP Minute Volume Vent Mode Tidal Volume POC PEEP EPAP 6 IPAP 14 Blood Gas Notified Whom ICU MD ICU MD Blood Gas Notified Time 945 1130 Sodium Potassium Chloride Carbon Dioxide Anion Gap BUN Creatinine Estim Creat Clear Calc Est GFR (MDRD) Af Amer Est GFR (MDRD) Non-Af BUN/Creatinine Ratio Glucose Lactic Acid Calcium Phosphorus Magnesium Total Bilirubin AST ALT Alkaline Phosphatase Total Creatine Kinase Troponin I Total Protein Albumin Globulin Albumin/Globulin Ratio Triglycerides TSH Cortisol Ur Random Sodium MRSA (PCR) POC Glucose 179 H 04/28/18 04/28/18 04/28/18 12:08 13:23 17:33 WBC RBC Hgb Hct MCV MCH MCHC RDW RDW Differential Plt Count MPV Immature Gran % (Auto) Neut % (Auto) Lymph % (Auto) [place] % (Auto) Eos % (Auto) Baso % (Auto) Absolute Neuts (auto) Absolute Lymphs (auto) Total Counted Specimen Type ART Sample Site R Radial pH 7.18 L* Bicarbonate Actual 20.4 L POC Total CO2 22 Base Excess -8 L O2 Saturation 95 O2 % 35 ABG pCO2 55.2 H ABG pO2 98 Aroldo Test POS Respiration Rate 16 O2 Delivery Device Bi / C PAP Minute Volume Vent Mode Tidal Volume POC PEEP EPAP 6 IPAP 14 Blood Gas Notified Whom ICU MD Blood Gas Notified Time 1325 Sodium Potassium Chloride Carbon Dioxide Anion Gap BUN Creatinine Estim Creat Clear Calc Est GFR (MDRD) Af Amer Est GFR (MDRD) Non-Af BUN/Creatinine Ratio Glucose Lactic Acid Calcium Phosphorus Magnesium Total Bilirubin AST ALT Alkaline Phosphatase Total Creatine Kinase Troponin I Total Protein Albumin Globulin Albumin/Globulin Ratio Triglycerides TSH Cortisol Ur Random Sodium MRSA (PCR) POC Glucose 206 H 199 H 04/28/18 04/29/18 04/29/18 22:19 04:45 04:45 WBC 17.8 H RBC 3.27 L Hgb 11.3 L Hct 31.8 L MCV 97.2 MCH 34.6 H MCHC 35.5 RDW 13.9 RDW Differential 46.8 H Plt Count 260 MPV 9.8 Immature Gran % (Auto) 0.600 Neut % (Auto) 90.1 H Lymph % (Auto) 6.0 L [place] % (Auto) 3.0 Eos % (Auto) 0.2 Baso % (Auto) 0.1 Absolute Neuts (auto) 16.0 H Absolute Lymphs (auto) 1.07 Total Counted Not Reportable Specimen Type Sample Site pH Bicarbonate Actual POC Total CO2 Base Excess O2 Saturation O2 % ABG pCO2 ABG pO2 Aroldo Test Respiration Rate O2 Delivery Device Minute Volume Vent Mode Tidal Volume POC PEEP EPAP IPAP Blood Gas Notified Whom Blood Gas Notified Time Sodium 140 Potassium 4.3 Chloride 107 Carbon Dioxide 21.0 Anion Gap BUN 28 H Creatinine 2.65 H Estim Creat Clear Calc 28.31 Est GFR (MDRD) Af Amer 25 L Est GFR (MDRD) Non-Af 21 L BUN/Creatinine Ratio 10.6 Glucose 207 H Lactic Acid Calcium 8.0 L Phosphorus 3.4 Magnesium Total Bilirubin AST ALT Alkaline Phosphatase Total Creatine Kinase Troponin I Total Protein Albumin 2.7 L Globulin Albumin/Globulin Ratio Triglycerides TSH Cortisol Ur Random Sodium MRSA (PCR) POC Glucose 217 H 04/29/18 06:03 WBC RBC Hgb Hct MCV MCH MCHC RDW RDW Differential Plt Count MPV Immature Gran % (Auto) Neut % (Auto) Lymph % (Auto) [place] % (Auto) Eos % (Auto) Baso % (Auto) Absolute Neuts (auto) Absolute Lymphs (auto) Total Counted Specimen Type DENIZ Sample Site OTHER pH 7.38 Bicarbonate Actual 20.6 L POC Total CO2 22 Base Excess -5 L O2 Saturation 98 O2 % 30 ABG pCO2 35.1 ABG pO2 101 H Aroldo Test NA Respiration Rate 16 O2 Delivery Device Vent Minute Volume 8.00 Vent Mode A-C Tidal Volume 500 POC PEEP 5 EPAP IPAP Blood Gas Notified Whom ICU Blood Gas Notified Time 550 Sodium Potassium Chloride Carbon Dioxide Anion Gap BUN Creatinine Estim Creat Clear Calc Est GFR (MDRD) Af Amer Est GFR (MDRD) Non-Af BUN/Creatinine Ratio Glucose Lactic Acid Calcium Phosphorus Magnesium Total Bilirubin AST ALT Alkaline Phosphatase Total Creatine Kinase Troponin I Total Protein Albumin Globulin Albumin/Globulin Ratio Triglycerides TSH Cortisol Ur Random Sodium MRSA (PCR) POC Glucose Clinical Impression(s) from Imaging Studies Chest X-Ray 04/27/18 16:38 IMPRESSION: Normal x-ray examination of the chest. Electronically Signed: Aysha Jimenez MD at 18:39 EDT Tel , Service support , Abdomen X-Ray 04/27/18 17:45 IMPRESSION: Mild gaseous distention of the colon, without high-grade obstruction or obvious cutoff. If there is continued clinical concern, CT of the abdomen is advised. Electronically Signed: Aysha Jimenez MD at 18:44 EDT Tel , Service support , Chest X-Ray 04/28/18 00:35 IMPRESSION: There is NO acute cardiopulmonary abnormality. The central venous catheter is in good position. There is NO visible pneumothorax. Electronically Signed: Domo Boston MD at 1:15 EDT , Service support , Chest X-Ray 04/28/18 14:36 IMPRESSION: All the support tubes are in good position. Electronically Signed: Feliz Nino MD at 15:14 EDT Tel [phone], Service support , Brain CT 04/28/18 22:35 IMPRESSION: Normal unenhanced CT scan of the brain. Electronically Signed: Domo Boston MD at 1:25 EDT , Service support , Medical Necessity - Tobacco Use Smoking Status: Never smoker Tobacco Use: Non-smoker Assessment/Plan All Active Problems (Last Reviewed 04/22/18 @ 17:51 by Sofia Wong) Rhabdomyolysis (Acute) Migraine aura, persistent (Acute) BAMBI (acute kidney injury) (Acute) Acute metabolic encephalopathy (Acute) Hypokalemia (Acute) MRSA (methicillin resistant Staphylococcus aureus) (Acute) Acute respiratory failure (Acute) ARF (acute renal failure) (Acute) Hyperosmolarity due to secondary diabetes (Acute) Depression (Acute) RECOMMENDATIONS: 1. Recheck CK level and obtain sputum culture. 2. Give levothyroxine replacement via OG tube. 3. Continue to wean Levophed to maintain a mean arterial pressure at or above 65 mmHg. 4. Okay from my perspective to begin tube feeds today. 5. Anticipate likely extubation in the next 24-48 hours. 6. Continue stress dose steroids for now. 7. Continue appropriate ICU prophylaxis IMPRESSIONS: 1. Distributive shock versus overt hypothyroidism Unclear infectious source at this time. Cultures have been unrevealing to date and chest imaging has not revealed any focal infiltrate. Regardless, the patient has been adequately volume resuscitated and will remain on Levophed to maintain a mean arterial pressure at or above 65 mmHg. Empiric broad-spectrum antibiotics will be continued, pending infectious workup. It is also possible that the patient's overt hypothyroidism may be contributing to her current state of hemodynamic instability, with possibility that the patient was developing a borderline myxedema status. She did receive IV Synthroid yesterday and was placed on stress dose steroids for potential secondary adrenal insufficiency. 2. Acute hypercarbic respiratory failure The patient was intubated on April 28 after she was noted to be hypercarbic and encephalopathic. The patient failed trials of noninvasive positive pressure ventilation, which necessitated endotracheal tube placement. Since that time, the patient's gas exchange state has significantly improved. Her ventilator requirements are minimal. It is certainly possible that with the patient's hypothyroidism/myxedema state, she developed hypercarbia secondary to hypoventilation from central depression of her ventilatory drive, which was compounded by likely obstructive sleep apnea. 3. Acute on chronic kidney disease Improving. Suspected secondary to ischemic ATN. The patient is now actively diuresing with improvement in her creatinine. We will plan to recheck CK this morning. Continue supplemental IV fluids for now as ordered. 4. Metabolic encephalopathy Likely multifactorial in etiology with underlying overt hypothyroidism, possible polypharmacy and hypercarbia contributing. Sedating medications are currently on hold. Hypercarbic state has improved since being started on invasive mechanical ventilation. Her underlying hypothyroidism is currently under treatment. 5. Elevated CK Possible mild rhabdo versus effects of untreated hypothyroidism. We will continue gentle IV fluid hydration with half-normal saline. Recheck CK this morning. 6. Suspected sleep disordered breathing The patient certainly demonstrates signs and symptoms concerning for underlying obstructive sleep apnea. Upon extubation, she should be placed empirically on BiPAP with a pressure support of 14/6 cm of water. Ideally, she should have outpatient follow-up and undergo a diagnostic polysomnogram. 7. Personal history of chronic pain syndrome/diabetes/depression/hypothyroidism/morbid obesity Complicates care, management, recovery and prognosis. Continue Accu-Cheks and sliding scale insulin coverage every 6 hours for now. TIME: 40 minutes of critical care time, inclusive of procedures, was spent addressing the patient's distributive shock versus overt hypothyroidism, acute on chronic kidney disease, metabolic encephalopathy, elevated CK, suspected sleep disordered breathing, review of all data and collaboration with the care team. ([id number]) Code Visit [id number]: [id number] Critical care first hour
--- NOTE | 2018-04-29 06:55 | PN_ITS ---
Subjective: The patient was seen and examined at the bedside this morning. Events from the last 24 hours have been reviewed. The patient is currently afebrile, but remains on Levophed at 20 mcg to maintain hemodynamic stability. The patient's FiO2 requirement has been weaned down to 30%. Arterial blood gas this morning revealed improved gas exchange with a normal pH and PCO2. The patient is alert and appropriately interactive. She remains mechanically ventilated. The patient put out over 7 L of urine overnight. Objective: The patient's most recent lab work, culture data and imaging studies have all been personally reviewed. Blood and urine cultures are pending. General: - - Intubated, sedated and mechanically ventilated. HEENT: Atraumatic, PERRLA, Normocephalic Oral: No Gingival or Mucosal Lesions/ Ulcerations, - - Endotracheal and OG tubes remain in place. Neck: Supple, No Nodes, Trachea Midline, - - Right subclavian central venous catheter in place Lungs: No rhonchi, No wheeze, No rales, - - Mechanical breath sounds anteriorly Cardiovascular: Regular rate, Regular Rhythm, Normal S1, Normal S2, No murmurs Abdomen: Bowel Sounds Present, Soft, Non Tender, Obese Extremities: No clubbing, No cyanosis, No edema Skin: No breakdown Musculoskeletal: No Tenderness to Palpation of Joints or Extremities, No Muscle Wasting Lymphatic: No Cervical, Supraclavicular, or Inguinal Adenopathy Neurological: - - No focal neurological deficits. Attempts to move all extremities spontaneously. Alert and following simple commands. Vital Signs Temp Pulse Resp BP Pulse Ox 99.0 F 94 16 123/74 H 96 04/29/18 04:00 04/29/18 06:00 04/29/18 06:00 04/29/18 06:00 04/29/18 06:00 Oxygen Delivery Method Mechanical Ventilator Weight: 375 lb 0.101 oz Body Mass Index (BMI) 55.3 Intake and Output for Last 24 Hours 04/27/18 04/28/18 04/29/18 23:59 23:59 23:59 Intake Total 1500 / 1500 6965.1 / 6965.1 1219 / 1219 Output Total 500 / 500 7400 / 7400 2700 / 2700 Balance 1000 / 1000 -434.9 / -434.9 -1481 / -1481 Labs (Last 48 Hours) 04/27/18 04/28/1804/28/18 22:06 00:05 00:05 WBC 19.1 H RBC 3.04 L Hgb 10.4 L Hct 30.6 L MCV 100.7 H MCH 34.2 H MCHC 34.0 RDW 13.9 RDW Differential 49.6 H Plt Count 243 MPV 10.0 Immature Gran % (Auto) 0.400 Neut % (Auto) 84.9 H Lymph % (Auto) 9.2 L [place] % (Auto) 4.5 Eos % (Auto) 0.8 Baso % (Auto) 0.2 Absolute Neuts (auto) 16.2 H Absolute Lymphs (auto) 1.75 Total Counted Not Reportable Specimen Type Sample Site pH Bicarbonate Actual POC Total CO2 Base Excess O2 Saturation O2 % ABG pCO2 ABG pO2 Aroldo Test Respiration Rate O2 Delivery Device Minute Volume Vent Mode Tidal Volume POC PEEP EPAP IPAP Blood Gas Notified Whom Blood Gas Notified Time Sodium 130 L Potassium 4.2 Chloride 96 L Carbon Dioxide 21.0 Anion Gap 13 BUN 31 H Creatinine 4.48 H Estim Creat Clear Calc 16.75 Est GFR (MDRD) Af Amer 14 L Est GFR (MDRD) Non-Af 11 L BUN/Creatinine Ratio 6.9 L Glucose 221 H Lactic Acid Calcium 7.9 L Phosphorus 5.9 H Magnesium 2.0 Total Bilirubin AST ALT Alkaline Phosphatase Total Creatine Kinase Troponin I Total Protein Albumin Globulin Albumin/Globulin Ratio Triglycerides TSH Cortisol Ur Random Sodium MRSA (PCR) POC Glucose 201 H 04/28/18 04/28/18 04/28/18 01:50 03:10 03:45 WBC RBC Hgb Hct MCV MCH MCHC RDW RDW Differential Plt Count MPV Immature Gran % (Auto) Neut % (Auto) Lymph % (Auto) [place] % (Auto) Eos % (Auto) Baso % (Auto) Absolute Neuts (auto) Absolute Lymphs (auto) Total Counted Specimen Type Sample Site pH Bicarbonate Actual POC Total CO2 Base Excess O2 Saturation O2 % ABG pCO2 ABG pO2 Aroldo Test Respiration Rate O2 Delivery Device Minute Volume Vent Mode Tidal Volume POC PEEP EPAP IPAP Blood Gas Notified Whom Blood Gas Notified Time Sodium Potassium Chloride Carbon Dioxide Anion Gap BUN Creatinine Estim Creat Clear Calc Est GFR (MDRD) Af Amer Est GFR (MDRD) Non-Af BUN/Creatinine Ratio Glucose Lactic Acid Calcium Phosphorus Magnesium Total Bilirubin AST ALT Alkaline Phosphatase Total Creatine Kinase Troponin I Total Protein Albumin Globulin Albumin/Globulin Ratio Triglycerides TSH Cortisol Ur Random Sodium 32 MRSA (PCR) Negative POC Glucose 198 H 04/28/18 04/28/18 04/28/18 04:22 04:22 04:22 WBC 16.9 H RBC 3.37 L Hgb 11.2 L Hct 33.8 L MCV 100.3 H MCH 33.2 H MCHC 33.1 RDW 14.3 RDW Differential 52.8 H Plt Count 247 MPV 9.6 Immature Gran % (Auto) 0.200 Neut % (Auto) 83.6 H Lymph % (Auto) 9.3 L [place] % (Auto) 5.9 Eos % (Auto) 0.9 Baso % (Auto) 0.1 Absolute Neuts (auto) 14.1 H Absolute Lymphs (auto) 1.58 Total Counted Not Reportable Specimen Type Sample Site pH Bicarbonate Actual POC Total CO2 Base Excess O2 Saturation O2 % ABG pCO2 ABG pO2 Aroldo Test Respiration Rate O2 Delivery Device Minute Volume Vent Mode Tidal Volume POC PEEP EPAP IPAP Blood Gas Notified Whom Blood Gas Notified Time Sodium 132 L Potassium 4.5 Chloride 97 L Carbon Dioxide 22.0 Anion Gap 13 BUN 32 H Creatinine 4.30 H Estim Creat Clear Calc 17.45 Est GFR (MDRD) Af Amer 14 L Est GFR (MDRD) Non-Af 12 L BUN/Creatinine Ratio 7.4 L Glucose 210 H Lactic Acid Calcium 7.8 L Phosphorus Magnesium Total Bilirubin 0.50 AST 97 H ALT 43 Alkaline Phosphatase 57 Total Creatine Kinase 2337 H Troponin I Total Protein 6.8 Albumin 3.1 L Globulin 3.7 Albumin/Globulin Ratio 0.8 L Triglycerides TSH Cortisol Ur Random Sodium MRSA (PCR) POC Glucose 04/28/18 04/28/18 04/28/18 06:03 07:05 07:05 WBC RBC Hgb Hct MCV MCH MCHC RDW RDW Differential Plt Count MPV Immature Gran % (Auto) Neut % (Auto) Lymph % (Auto) [place] % (Auto) Eos % (Auto) Baso % (Auto) Absolute Neuts (auto) Absolute Lymphs (auto) Total Counted Specimen Type Sample Site pH Bicarbonate Actual POC Total CO2 Base Excess O2 Saturation O2 % ABG pCO2 ABG pO2 Aroldo Test Respiration Rate O2 Delivery Device Minute Volume Vent Mode Tidal Volume POC PEEP EPAP IPAP Blood Gas Notified Whom Blood Gas Notified Time Sodium Potassium Chloride Carbon Dioxide Anion Gap BUN Creatinine Estim Creat Clear Calc Est GFR (MDRD) Af Amer Est GFR (MDRD) Non-Af BUN/Creatinine Ratio Glucose Lactic Acid 1.4 Calcium Phosphorus Magnesium Total Bilirubin AST ALT Alkaline Phosphatase Total Creatine Kinase Troponin I Total Protein Albumin Globulin Albumin/Globulin Ratio Triglycerides TSH 90.60 H Cortisol Ur Random Sodium MRSA (PCR) POC Glucose 180 H 04/28/18 04/28/18 04/28/18 07:05 07:05 07:05 WBC RBC Hgb Hct MCV MCH MCHC RDW RDW Differential Plt Count MPV Immature Gran % (Auto) Neut % (Auto) Lymph % (Auto) [place] % (Auto) Eos % (Auto) Baso % (Auto) Absolute Neuts (auto) Absolute Lymphs (auto) Total Counted Specimen Type Sample Site pH Bicarbonate Actual POC Total CO2 Base Excess O2 Saturation O2 % ABG pCO2 ABG pO2 Aroldo Test Respiration Rate O2 Delivery Device Minute Volume Vent Mode Tidal Volume POC PEEP EPAP IPAP Blood Gas Notified Whom Blood Gas Notified Time Sodium Potassium Chloride Carbon Dioxide Anion Gap BUN Creatinine Estim Creat Clear Calc Est GFR (MDRD) Af Amer Est GFR (MDRD) Non-Af BUN/Creatinine Ratio Glucose Lactic Acid Calcium Phosphorus Magnesium Total Bilirubin AST ALT Alkaline Phosphatase Total Creatine Kinase 2218 H Troponin I < 0.015 Total Protein Albumin Globulin Albumin/Globulin Ratio Triglycerides 118 TSH Cortisol 22.80 H Ur Random Sodium MRSA (PCR) POC Glucose 04/28/18 04/28/18 04/28/18 08:22 09:46 11:29 WBC RBC Hgb Hct MCV MCH MCHC RDW RDW Differential Plt Count MPV Immature Gran % (Auto) Neut % (Auto) Lymph % (Auto) [place] % (Auto) Eos % (Auto) Baso % (Auto) Absolute Neuts (auto) Absolute Lymphs (auto) Total Counted Specimen Type ART ART Sample Site R Radial R Radial pH 7.19 L* 7.19 L* Bicarbonate Actual 19.2 L 20.5 L POC Total CO2 21 22 Base Excess -9 L -8 L O2 Saturation 86 L 100 H O2 % 50 ABG pCO2 49.8 H 53.6 H ABG pO2 64 L 217 H Aroldo Test POS POS Respiration Rate 12 O2 Delivery Device Room Air Bi / C PAP Minute Volume Vent Mode Tidal Volume POC PEEP EPAP 6 IPAP 14 Blood Gas Notified Whom ICU MD ICU MD Blood Gas Notified Time 945 1130 Sodium Potassium Chloride Carbon Dioxide Anion Gap BUN Creatinine Estim Creat Clear Calc Est GFR (MDRD) Af Amer Est GFR (MDRD) Non-Af BUN/Creatinine Ratio Glucose Lactic Acid Calcium Phosphorus Magnesium Total Bilirubin AST ALT Alkaline Phosphatase Total Creatine Kinase Troponin I Total Protein Albumin Globulin Albumin/Globulin Ratio Triglycerides TSH Cortisol Ur Random Sodium MRSA (PCR) POC Glucose 179 H 04/28/18 04/28/18 04/28/18 12:08 13:23 17:33 WBC RBC Hgb Hct MCV MCH MCHC RDW RDW Differential Plt Count MPV Immature Gran % (Auto) Neut % (Auto) Lymph % (Auto) [place] % (Auto) Eos % (Auto) Baso % (Auto) Absolute Neuts (auto) Absolute Lymphs (auto) Total Counted Specimen Type ART Sample Site R Radial pH 7.18 L* Bicarbonate Actual 20.4 L POC Total CO2 22 Base Excess -8 L O2 Saturation 95 O2 % 35 ABG pCO2 55.2 H ABG pO2 98 Aroldo Test POS Respiration Rate 16 O2 Delivery Device Bi / C PAP Minute Volume Vent Mode Tidal Volume POC PEEP EPAP 6 IPAP 14 Blood Gas Notified Whom ICU MD Blood Gas Notified Time 1325 Sodium Potassium Chloride Carbon Dioxide Anion Gap BUN Creatinine Estim Creat Clear Calc Est GFR (MDRD) Af Amer Est GFR (MDRD) Non-Af BUN/Creatinine Ratio Glucose Lactic Acid Calcium Phosphorus Magnesium Total Bilirubin AST ALT Alkaline Phosphatase Total Creatine Kinase Troponin I Total Protein Albumin Globulin Albumin/Globulin Ratio Triglycerides TSH Cortisol Ur Random Sodium MRSA (PCR) POC Glucose 206 H 199 H 04/28/18 04/29/18 04/29/18 22:19 04:45 04:45 WBC 17.8 H RBC 3.27 L Hgb 11.3 L Hct 31.8 L MCV 97.2 MCH 34.6 H MCHC 35.5 RDW 13.9 RDW Differential 46.8 H Plt Count 260 MPV 9.8 Immature Gran % (Auto) 0.600 Neut % (Auto) 90.1 H Lymph % (Auto) 6.0 L [place] % (Auto) 3.0 Eos % (Auto) 0.2 Baso % (Auto) 0.1 Absolute Neuts (auto) 16.0 H Absolute Lymphs (auto) 1.07 Total Counted Not Reportable Specimen Type Sample Site pH Bicarbonate Actual POC Total CO2 Base Excess O2 Saturation O2 % ABG pCO2 ABG pO2 Aroldo Test Respiration Rate O2 Delivery Device Minute Volume Vent Mode Tidal Volume POC PEEP EPAP IPAP Blood Gas Notified Whom Blood Gas Notified Time Sodium 140 Potassium 4.3 Chloride 107 Carbon Dioxide 21.0 Anion Gap BUN 28 H Creatinine 2.65 H Estim Creat Clear Calc 28.31 Est GFR (MDRD) Af Amer 25 L Est GFR (MDRD) Non-Af 21 L BUN/Creatinine Ratio 10.6 Glucose 207 H Lactic Acid Calcium 8.0 L Phosphorus 3.4 Magnesium Total Bilirubin AST ALT Alkaline Phosphatase Total Creatine Kinase Troponin I Total Protein Albumin 2.7 L Globulin Albumin/Globulin Ratio Triglycerides TSH Cortisol Ur Random Sodium MRSA (PCR) POC Glucose 217 H 04/29/18 06:03 WBC RBC Hgb Hct MCV MCH MCHC RDW RDW Differential Plt Count MPV Immature Gran % (Auto) Neut % (Auto) Lymph % (Auto) [place] % (Auto) Eos % (Auto) Baso % (Auto) Absolute Neuts (auto) Absolute Lymphs (auto) Total Counted Specimen Type DENIZ Sample Site OTHER pH 7.38 Bicarbonate Actual 20.6 L POC Total CO2 22 Base Excess -5 L O2 Saturation 98 O2 % 30 ABG pCO2 35.1 ABG pO2 101 H Aroldo Test NA Respiration Rate 16 O2 Delivery Device Vent Minute Volume 8.00 Vent Mode A-C Tidal Volume 500 POC PEEP 5 EPAP IPAP Blood Gas Notified Whom ICU Blood Gas Notified Time 550 Sodium Potassium Chloride Carbon Dioxide Anion Gap BUN Creatinine Estim Creat Clear Calc Est GFR (MDRD) Af Amer Est GFR (MDRD) Non-Af BUN/Creatinine Ratio Glucose Lactic Acid Calcium Phosphorus Magnesium Total Bilirubin AST ALT Alkaline Phosphatase Total Creatine Kinase Troponin I Total Protein Albumin Globulin Albumin/Globulin Ratio Triglycerides TSH Cortisol Ur Random Sodium MRSA (PCR) POC Glucose Clinical Impression(s) from Imaging Studies Chest X-Ray 04/27/18 16:38 IMPRESSION: Normal x-ray examination of the chest. Electronically Signed: Aysha Jimenez MD at 18:39 EDT Tel , Service support , Abdomen X-Ray 04/27/18 17:45 IMPRESSION: Mild gaseous distention of the colon, without high-grade obstruction or obvious cutoff. If there is continued clinical concern, CT of the abdomen is advised. Electronically Signed: Aysha Jimenez MD at 18:44 EDT Tel , Service support , Chest X-Ray 04/28/18 00:35 IMPRESSION: There is NO acute cardiopulmonary abnormality. The central venous catheter is in good position. There is NO visible pneumothorax. Electronically Signed: Domo Boston MD at 1:15 EDT , Service support , Chest X-Ray 04/28/18 14:36 IMPRESSION: All the support tubes are in good position. Electronically Signed: Feliz Nino MD at 15:14 EDT Tel [phone], Service support , Brain CT 04/28/18 22:35 IMPRESSION: Normal unenhanced CT scan of the brain. Electronically Signed: Domo Boston MD at 1:25 EDT , Service support , Medical Necessity - Tobacco Use Smoking Status: Never smoker Tobacco Use: Non-smoker Assessment/Plan All Active Problems (Last Reviewed 04/22/18 @ 17:51 by Sofia Wong) Rhabdomyolysis (Acute) Migraine aura, persistent (Acute) BAMBI (acute kidney injury) (Acute) Acute metabolic encephalopathy (Acute) Hypokalemia (Acute) MRSA (methicillin resistant Staphylococcus aureus) (Acute) Acute respiratory failure (Acute) ARF (acute renal failure) (Acute) Hyperosmolarity due to secondary diabetes (Acute) Depression (Acute) RECOMMENDATIONS: 1. Recheck CK level and obtain sputum culture. 2. Give levothyroxine replacement via OG tube. 3. Continue to wean Levophed to maintain a mean arterial pressure at or above 65 mmHg. 4. Okay from my perspective to begin tube feeds today. 5. Anticipate likely extubation in the next 24-48 hours. 6. Continue stress dose steroids for now. 7. Continue appropriate ICU prophylaxis IMPRESSIONS: 1. Distributive shock versus overt hypothyroidism Unclear infectious source at this time. Cultures have been unrevealing to date and chest imaging has not revealed any focal infiltrate. Regardless, the patient has been adequately volume resuscitated and will remain on Levophed to maintain a mean arterial pressure at or above 65 mmHg. Empiric broad-spectrum antibiotics will be continued, pending infectious workup. It is also possible that the patient's overt hypothyroidism may be contributing to her current state of hemodynamic instability, with possibility that the patient was developing a borderline myxedema status. She did receive IV Synthroid yesterday and was placed on stress dose steroids for potential secondary adrenal insufficiency. 2. Acute hypercarbic respiratory failure The patient was intubated on April 28 after she was noted to be hypercarbic and encephalopathic. The patient failed trials of noninvasive positive pressure ventilation, which necessitated endotracheal tube placement. Since that time, the patient's gas exchange state has significantly improved. Her ventilator requirements are minimal. It is certainly possible that with the patient's hypothyroidism/myxedema state, she developed hypercarbia secondary to hypoventilation from central depression of her ventilatory drive, which was compounded by likely obstructive sleep apnea. 3. Acute on chronic kidney disease Improving. Suspected secondary to ischemic ATN. The patient is now actively diuresing with improvement in her creatinine. We will plan to recheck CK this morning. Continue supplemental IV fluids for now as ordered. 4. Metabolic encephalopathy Likely multifactorial in etiology with underlying overt hypothyroidism, possible polypharmacy and hypercarbia contributing. Sedating medications are currently on hold. Hypercarbic state has improved since being started on invasive mechanical ventilation. Her underlying hypothyroidism is currently under treatment. 5. Elevated CK Possible mild rhabdo versus effects of untreated hypothyroidism. We will continue gentle IV fluid hydration with half-normal saline. Recheck CK this morning. 6. Suspected sleep disordered breathing The patient certainly demonstrates signs and symptoms concerning for underlying obstructive sleep apnea. Upon extubation, she should be placed empirically on BiPAP with a pressure support of 14/6 cm of water. Ideally, she should have outpatient follow-up and undergo a diagnostic polysomnogram. 7. Personal history of chronic pain syndrome/diabetes/depression/hypothyroidism /morbid obesity Complicates care, management, recovery and prognosis. Continue Accu-Cheks and sliding scale insulin coverage every 6 hours for now. TIME: 40 minutes of critical care time, inclusive of procedures, was spent addressing the patient's distributive shock versus overt hypothyroidism, acute on chronic kidney disease, metabolic encephalopathy, elevated CK, suspected sleep disordered breathing, review of all data and collaboration with the care team. ( [id number]) Code Visit [id number]: [id number] Critical care first hour
[2018-04-29 06:56] LABS: Bedside Glucose 212 mg/dL (70-110)
[2018-04-29 07:49] LABS: CPK Total, Creatine Kinase 1222 U/L (26-192)
--- NOTE | 2018-04-29 08:35 | PCM.PN.REN ---
Patient Problems: Active and Suspected Problems (Last Reviewed 04/22/18 @ 17:51 by Sofia Wong) BAMBI (acute kidney injury) (Acute) Acute metabolic encephalopathy (Acute) Subjective: intubated, awake, responsive to yes/no questions. has abdominal tenderness, denies flatus. Remains on pressors. Urine output large volumes. - Physical Exam General: Alert, - - responsive on vent by knodding head HEENT: PERRLA, EOMI Oral: Dry Mucosa Neck: Supple Lungs: Clear to auscultation, - - on vent Cardiovascular: Regular rate Abdomen: Soft, Hypoactive Bowel Sounds, Obese, - - left quad tenderness Extremities: No edema Skin: No rashes Musculoskeletal: No Muscle Wasting Psych/Mental Status: Normal Affect, Appropriate Vital Signs Temp Pulse Resp BP Pulse Ox 99.0 F 89 16 94/64 98 04/29/18 04:00 04/29/18 08:00 04/29/18 08:00 04/29/18 08:00 04/29/18 08:00 Oxygen Delivery Method Mechanical Ventilator Weight: 170.1 kg Body Mass Index (BMI) 55.3 Intake and Output for Last 24 Hours 04/27/18 04/28/18 04/29/18 23:59 23:59 23:59 Intake Total 1500 / 1500 6965.1 / 6965.1 1219 / 1219 Output Total 500 / 500 7400 / 7400 2700 / 2700 Balance 1000 / 1000 -434.9 / -434.9 -1481 / -1481 Laboratory Tests Past 24 Hrs 04/28/18 04/28/18 04/28/18 07:05 07:05 09:46 WBC RBC Hgb Hct MCV MCH MCHC RDW RDW Differential Plt Count MPV Immature Gran % (Auto) Neut % (Auto) Lymph % (Auto) [place] % (Auto) Eos % (Auto) Baso % (Auto) Absolute Neuts (auto) Absolute Lymphs (auto) Total Counted Specimen Type ART Sample Site R Radial pH 7.19 L* Bicarbonate Actual 19.2 L POC Total CO2 21 Base Excess -9 L O2 Saturation 86 L O2 % ABG pCO2 49.8 H ABG pO2 64 L Aroldo Test POS Respiration Rate O2 Delivery Device Room Air Minute Volume Vent Mode Tidal Volume POC PEEP EPAP IPAP Blood Gas Notified Whom ICU Blood Gas Notified Time 945 Sodium Potassium Chloride Carbon Dioxide BUN Creatinine Estim Creat Clear Calc Est GFR (MDRD) Af Amer Est GFR (MDRD) Non-Af BUN/Creatinine Ratio Glucose Calcium Phosphorus Total Creatine Kinase 2218 H Albumin Triglycerides 118 Cortisol 22.80 H 04/28/18 04/28/18 04/29/18 11:29 13:23 04:45 WBC 17.8 H RBC 3.27 L Hgb 11.3 L Hct 31.8 L MCV 97.2 MCH 34.6 H MCHC 35.5 RDW 13.9 RDW Differential 46.8 H Plt Count 260 MPV 9.8 Immature Gran % (Auto) 0.600 Neut % (Auto) 90.1 H Lymph % (Auto) 6.0 L [place] % (Auto) 3.0 Eos % (Auto) 0.2 Baso % (Auto) 0.1 Absolute Neuts (auto) 16.0 H Absolute Lymphs (auto) 1.07 Total Counted Not Reportable Specimen Type ART ART Sample Site R Radial R Radial pH 7.19 L* 7.18 L* Bicarbonate Actual 20.5 L 20.4 L POC Total CO2 22 22 Base Excess -8 L -8 L O2 Saturation 100 H 95 O2 % 50 35 ABG pCO2 53.6 H 55.2 H ABG pO2 217 H 98 Aroldo Test POS POS Respiration Rate 12 16 O2 Delivery Device Bi / C PAP Bi / C PAP Minute Volume Vent Mode Tidal Volume POC PEEP EPAP 6 6 IPAP 14 14 Blood Gas Notified Whom ICU ICU Blood Gas Notified Time 1130 1325 Sodium Potassium Chloride Carbon Dioxide BUN Creatinine Estim Creat Clear Calc Est GFR (MDRD) Af Amer Est GFR (MDRD) Non-Af BUN/Creatinine Ratio Glucose Calcium Phosphorus Total Creatine Kinase Albumin Triglycerides Cortisol 04/29/18 04/29/18 04/29/18 04:45 04:45 06:03 WBC RBC Hgb Hct MCV MCH MCHC RDW RDW Differential Plt Count MPV Immature Gran % (Auto) Neut % (Auto) Lymph % (Auto) [place] % (Auto) Eos % (Auto) Baso % (Auto) Absolute Neuts (auto) Absolute Lymphs (auto) Total Counted Specimen Type DENIZ Sample Site OTHER pH 7.38 Bicarbonate Actual 20.6 L POC Total CO2 22 Base Excess -5 L O2 Saturation 98 O2 % 30 ABG pCO2 35.1 ABG pO2 101 H Aroldo Test NA Respiration Rate 16 O2 Delivery Device Vent Minute Volume 8.00 Vent Mode A-C Tidal Volume 500 POC PEEP 5 EPAP IPAP Blood Gas Notified Whom ICU Blood Gas Notified Time 550 Sodium 140 Potassium 4.3 Chloride 107 Carbon Dioxide 21.0 BUN 28 H Creatinine 2.65 H Estim Creat Clear Calc 28.31 Est GFR (MDRD) Af Amer 25 L Est GFR (MDRD) Non-Af 21 L BUN/Creatinine Ratio 10.6 Glucose 207 H Calcium 8.0 L Phosphorus 3.4 Total Creatine Kinase 1222 H Albumin 2.7 L Triglycerides Cortisol POC Glucose 04/29/18 04/28/18 04/28/18 06:49 22:19 17:33 POC Glucose 212 H 217 H 199 H 04/28/18 12:08 POC Glucose 206 H Medical Necessity - Tobacco Use Smoking Status: Never smoker Tobacco Use: Non-smoker Assessment/Plan All Active Problems (Last Reviewed 04/22/18 @ 17:51 by Sofia Wong) Rhabdomyolysis (Acute) Migraine aura, persistent (Acute) BAMBI (acute kidney injury) (Acute) Acute metabolic encephalopathy (Acute) Hypokalemia (Acute) MRSA (methicillin resistant Staphylococcus aureus) (Acute) Acute respiratory failure (Acute) ARF (acute renal failure) (Acute) Hyperosmolarity due to secondary diabetes (Acute) Depression (Acute) 1. BAMBI with high urine output suspect from post ATN diuresis. creatinine improving. 2 ATN from rhabdomyolysis, ischemia. Creatinine baseline 1.29 in March 2018. 2. Hyponatremia resolved 4. Hypotension continue iv fluids, pressors, thyroid replacement 5. Altered mental status improved, CT head unremarkable. Metabolic encephalopathy due to narcotics, hypercapnea, renal failure, hypothyroidism 6. JAZMIN, hypercapnea on vent, pulm mgmt 7. Profound hypothyroidism TSH 90. Primary care mgmt 8. Chronic pain syndrome on narcotics.
--- NOTE | 2018-04-29 09:35 | PCM.PN.HOSP ---
Patient Problems: Active and Suspected Problems (Last Reviewed 04/22/18 @ 17:51 by Sofia Wong) BAMBI (acute kidney injury) (Acute) Acute metabolic encephalopathy (Acute) Subjective: Patient seen and examined. She was intubated yesterday on account of severe metabolic acidosis. She remains intubated. Patient is alert and oriented score is 0. She is able to shake her head in response to questions and denies any chest pain, fever or chills, abdominal pain, diarrhea vomiting. 12 point review of systems otherwise negative. Labs and vitals reviewed. She remains intubated and sedated. Vitals/I&O's: Vital Signs Temp Pulse Resp BP Pulse Ox 99.0 F 87 16 94/64 97 04/29/18 04:00 04/29/18 08:58 04/29/18 08:58 04/29/18 08:00 04/29/18 08:58 Oxygen Delivery Method Mechanical Ventilator Weight: 375 lb 0.101 oz Body Mass Index (BMI) 55.3 Intake and Output for Last 24 Hours 04/27/18 04/28/18 04/29/18 23:59 23:59 23:59 Intake Total 1500 / 1500 6965.1 / 6965.1 1219 / 1219 Output Total 500 / 500 7400 / 7400 2700 / 2700 Balance 1000 / 1000 -434.9 / -434.9 -1481 / -1481 General: Alert, Cooperative, No apparent distress, - - patient intubated, sedated, RASS score is 0 HEENT: Atraumatic, PERRLA, EOMI, Normocephalic Oral: Moist Mucosa Neck: Supple, No JVD, Negative Carotid Bruits Lungs: Clear to auscultation, Normal air movement, No rhonchi, No wheeze, No rales Cardiovascular: Regular rate, Regular Rhythm, Normal S1, Normal S2, No murmurs Abdomen: Bowel Sounds Present, Soft, Obese, - - mild epigastric tenderness Extremities: No clubbing, No cyanosis, No edema, Capillary Refill Less than 3 Seconds Skin: No rashes, No breakdown Musculoskeletal: No Tenderness to Palpation of Joints or Extremities Lymphatic: No Cervical, Supraclavicular, or Inguinal Adenopathy Neurological: Cranial nerves II-XII grossly intact Psych/Mental Status: Normal Affect Laboratory Results 04/28/18 07:05: Cortisol 22.80 H 04/28/18 07:05: Total Creatine Kinase 2218 H, Triglycerides 118 04/28/18 09:46: Specimen Type ART, Sample Site R Radial, pH 7.19 L*, Bicarbonate Actual 19.2 L, POC Total CO2 21, Base Excess -9 L, O2 Saturation 86 L, ABG pCO2 49.8 H, ABG pO2 64 L, Aroldo Test POS, O2 Delivery Device Room Air, Blood Gas Notified Whom ICU MD, Blood Gas Notified Time 945 04/28/18 11:29: Specimen Type ART, Sample Site R Radial, pH 7.19 L*, Bicarbonate Actual 20.5 L, POC Total CO2 22, Base Excess -8 L, O2 Saturation 100 H, O2 % 50, ABG pCO2 53.6 H, ABG pO2 217 H, Aroldo Test POS, Respiration Rate 12, O2 Delivery Device Bi / C PAP, EPAP 6, IPAP 14, Blood Gas Notified Whom ICU MD, Blood Gas Notified Time 1130 04/28/18 12:08: POC Glucose 206 H 04/28/18 13:23: Specimen Type ART, Sample Site R Radial, pH 7.18 L*, Bicarbonate Actual 20.4 L, POC Total CO2 22, Base Excess -8 L, O2 Saturation 95, O2 % 35, ABG pCO2 55.2 H, ABG pO2 98, Aroldo Test POS, Respiration Rate 16, O2 Delivery Device Bi / C PAP, EPAP 6, IPAP 14, Blood Gas Notified Whom ICU MD, Blood Gas Notified Time 1325 04/28/18 17:33: POC Glucose 199 H 04/28/18 22:19: POC Glucose 217 H 04/29/18 04:45: WBC 17.8 H, RBC 3.27 L, Hgb 11.3 L, Hct 31.8 L, MCV 97.2, MCH 34.6 H, MCHC 35.5, RDW 13.9, RDW Differential 46.8 H, Plt Count 260, MPV 9.8, Immature Gran % (Auto) 0.600, Neut % (Auto) 90.1 H, Lymph % (Auto) 6.0 L, Bradley % (Auto) 3.0, Eos % (Auto) 0.2, Baso % (Auto) 0.1, Absolute Neuts (auto) 16.0 H, Absolute Lymphs (auto) 1.07, Total Counted Not Reportable 04/29/18 04:45: Sodium 140, Potassium 4.3, Chloride 107, Carbon Dioxide 21.0, BUN 28 H, Creatinine 2.65 H, Estim Creat Clear Calc 28.31, Est GFR (MDRD) Af Amer 25 L, Est GFR (MDRD) Non-Af 21 L, BUN/Creatinine Ratio 10.6, Glucose 207 H, Calcium 8.0 L, Phosphorus 3.4, Albumin 2.7 L 04/29/18 04:45: Total Creatine Kinase 1222 H 04/29/18 06:03: Specimen Type DENIZ, Sample Site OTHER, pH 7.38, Bicarbonate Actual 20.6 L, POC Total CO2 22, Base Excess -5 L, O2 Saturation 98, O2 % 30, ABG pCO2 35.1, ABG pO2 101 H, Aroldo Test NA, Respiration Rate 16, O2 Delivery Device Vent, Minute Volume 8.00, Vent Mode A-C, Tidal Volume 500, POC PEEP 5, Blood Gas Notified Whom ICU MD, Blood Gas Notified Time 550 04/29/18 06:49: POC Glucose 212 H Current Medications Acetaminophen (Tylenol Liquid) 650 mg GT Q6H PRN PRN PRN Reason: Non-cardiac pain (mod-severe) Al Hydroxide/Mg Hydroxide (Mylanta Ii) 30 ml GT Q6H PRN PRN PRN Reason: Gastric burning Chlorhexidine Gluconate () 1 each TOPICAL DAILY [facility] Last Admin: 04/29/18 04:03 Dose: 1 each Famotidine (Pepcid) 20 mg GT DAILY [facility] Heparin Sodium (Porcine) (Heparin Na) 5,000 unit SC Q8 [facility] Last Admin: 04/29/18 05:15 Dose: 5,000 unit Hydrocortisone Sodium Succinate (Solu-Cortef) 50 mg IV Q6 [facility] Last Admin: 04/29/18 05:15 Dose: 50 mg Norepinephrine Bitartrate 8 mg (/ Dextrose) 258 mls @ 9.67 mls/hr IV .[id number] [facility] PRN Reason: 5 MCG/MIN Last Admin: 04/29/18 08:06 Dose: 9.67 mls/hr Piperacillin Sod/Tazobactam Sod (Zosyn) 3.375 gm in 50 mls @ 12.5 mls/hr IV Q8 [facility] Last Admin: 04/29/18 05:13 Dose: 12.5 mls/hr Sodium Chloride () 1,000 mls @ 125 mls/hr IV .Q8H [facility] Last Admin: 04/29/18 00:51 Dose: 125 mls/hr Fentanyl () 100 mls @ 2.5 mls/hr IV .Q40H NUNU PRN Reason: Protocol Last Admin: 04/29/18 08:06 Dose: 2.5 mls/hr Propofol (Diprivan) 1,000 mg in 100 mls @ 5.103 mls/hr CONT INF .Q12H NUNU; 5 MCG/KG/MIN PRN Reason: Protocol Last Admin: 04/29/18 06:38 Dose: 5.103 mls/hr Insulin Human Lispro (Humalog Kwikpen (Bkc)) 0 unit SC Q6 [facility] PRN Reason: Protocol Levothyroxine Sodium (Synthroid) 274 mcg GT DAILY@0600 [facility] Last Admin: 04/29/18 05:18 Dose: 274 mcg Magnesium Hydroxide (Milk Of Magnesia) 30 ml GT DAILY PRN PRN PRN Reason: Constipation Ondansetron HCl (Zofran) 4 mg IV Q8H PRN PRN PRN Reason: NAUSEA Promethazine HCl (Phenergan) 12.5 mg IV Q6H PRN PRN PRN Reason: NAUSEA/VOMITING Sodium Chloride () 5 - 30 ml IV UD PRN PRN Reason: SALINE FLUSH Last Admin: 04/28/18 15:58 Dose: 20 ml Topiramate (Topamax) 100 mg GT BID [facility] Last Admin: 04/28/18 22:24 Dose: 100 mg Venlafaxine HCl (Effexor) 37.5 mg PO 4X/DAY [facility] Last Admin: 04/28/18 22:25 Dose: 37.5 mg Medical Necessity - Tobacco Use Smoking Status: Never smoker Tobacco Use: Non-smoker Assessment/Plan All Active Problems (Last Reviewed 04/22/18 @ 17:51 by Sofia Wong) Rhabdomyolysis (Acute) Migraine aura, persistent (Acute) BAMBI (acute kidney injury) (Acute) Acute metabolic encephalopathy (Acute) Hypokalemia (Acute) MRSA (methicillin resistant Staphylococcus aureus) (Acute) Acute respiratory failure (Acute) ARF (acute renal failure) (Acute) Hyperosmolarity due to secondary diabetes (Acute) Depression (Acute) 1. Acute anion gap metabolic acidosis due to uremia ABGs done yesterday showed pH of 7.18, and bicarb was also low was intubated o/a of hypercarbic respiratory failure and metabolic acidosis vent settings: AC/VC TV 500, pEEP 5. FiO2-30% acidosis has resolved, with bicarb going up to 21 per ABG today. uremia also resolving critical care on board. for possible extubation today if she passes spontaneous breathing trial 2. Acute metabolic encephalopathy due to uremia and hypothyroidism currently intubated and sedated with propofol. RASS score is 1. uremia resolving. will monitor. Opiates on hold. 3. Acute hypercarbic respiratory failure due to acute metabolic encephalopathy intubated and sedated after she failed NIPPV trial respiratory failure likely compounded by severe hypothyroidism and metabolic encephalopathy. vent settings as mentioned above critical care on board 4. Distributive shock vs severe hyothyroidism Patient has remained hypotensive and requires persistent IV fluids. cortisol level was was 22.8, ruling out adrenal insufficiency. patient on stress dose steroids though as potential secondary adrenal insufficiency was a factor. continue IVF and try to wean off pressors. 5. Acute hyponatremia Resolved. Sodium is 140. Will monitor. 6. BAMBI likely pre-renal due to ATN Resolving. Creatinine down to 2.65 from about 4 on admission. BUN down to 28. On IV fluids normal saline for hydration. Nephrology on board. 7. Poorly controlled hypothyroidism Patient noncompliant with her Synthroid. TSH was 160 on admission and was 90 on repeat. Free TSH was 0.19. At risk of myxedema Started on IV Synthroid. 8. Rhabdomyolysis CPK was ~ 3000 on admission, now trended down to 1222 severe hypothyroidism likely played a role in this also continue IVF and monitor 9. . Sepsis- source of infection is not clear blood cultures and urine cultures pending on IV zosyn. 8. Migraine headache: on topamax. Hold off on NSAIDs due to severe BAMBI 9. Hypertension: remains on levophed and IVF BP meds all on hold. 10. Anxiety, depression and bipolar disorder: On Effexor 75 mg twice daily. Total daily dose reduced by 50% due to renal function. 11. Chronic pain syndrome: on chronic narcotic therapy. Utox was positive for opiates. DVT prophylaxis: heparin Code status: full code This note was generated with [employer] software. It may contain incorrect words, spelling, and punctuation that were not noted in checking the note before signing. Code Visit Inpatient E&M: 14818 Subs Hosp L3
--- NOTE | 2018-04-29 09:40 | PN_ITS ---
Patient Problems: Active and Suspected Problems (Last Reviewed 04/22/18 @ 17:51 by Sofia Wong) BAMBI (acute kidney injury) (Acute) Acute metabolic encephalopathy (Acute) Subjective: Patient seen and examined. She was intubated yesterday on account of severe metabolic acidosis. She remains intubated. Patient is alert and oriented score is 0. She is able to shake her head in response to questions and denies any chest pain, fever or chills, abdominal pain, diarrhea vomiting. 12 point review of systems otherwise negative. Labs and vitals reviewed. She remains intubated and sedated. Vitals/I&O's: Vital Signs Temp Pulse Resp BP Pulse Ox 99.0 F 87 16 94/64 97 04/29/18 04:00 04/29/18 08:58 04/29/18 08:58 04/29/18 08:00 04/29/18 08:58 Oxygen Delivery Method Mechanical Ventilator Weight: 375 lb 0.101 oz Body Mass Index (BMI) 55.3 Intake and Output for Last 24 Hours 04/27/18 04/28/18 04/29/18 23:59 23:59 23:59 Intake Total 1500 / 1500 6965.1 / 6965.1 1219 / 1219 Output Total 500 / 500 7400 / 7400 2700 / 2700 Balance 1000 / 1000 -434.9 / -434.9 -1481 / -1481 General: Alert, Cooperative, No apparent distress, - - patient intubated, sedated, RASS score is 0 HEENT: Atraumatic, PERRLA, EOMI, Normocephalic Oral: Moist Mucosa Neck: Supple, No JVD, Negative Carotid Bruits Lungs: Clear to auscultation, Normal air movement, No rhonchi, No wheeze, No rales Cardiovascular: Regular rate, Regular Rhythm, Normal S1, Normal S2, No murmurs Abdomen: Bowel Sounds Present, Soft, Obese, - - mild epigastric tenderness Extremities: No clubbing, No cyanosis, No edema, Capillary Refill Less than 3 Seconds Skin: No rashes, No breakdown Musculoskeletal: No Tenderness to Palpation of Joints or Extremities Lymphatic: No Cervical, Supraclavicular, or Inguinal Adenopathy Neurological: Cranial nerves II-XII grossly intact Psych/Mental Status: Normal Affect Laboratory Results 04/28/18 07:05: Cortisol 22.80 H 04/28/18 07:05: Total Creatine Kinase 2218 H, Triglycerides 118 04/28/18 09:46: Specimen Type ART, Sample Site R Radial, pH 7.19 L*, Bicarbonate Actual 19.2 L, POC Total CO2 21, Base Excess -9 L, O2 Saturation 86 L, ABG pCO2 49.8 H, ABG pO2 64 L, Aroldo Test POS, O2 Delivery Device Room Air, Blood Gas Notified Whom ICU MD, Blood Gas Notified Time 945 04/28/18 11:29: Specimen Type ART, Sample Site R Radial, pH 7.19 L*, Bicarbonate Actual 20.5 L, POC Total CO2 22, Base Excess -8 L, O2 Saturation 100 H, O2 % 50, ABG pCO2 53.6 H, ABG pO2 217 H, Aroldo Test POS, Respiration Rate 12, O2 Delivery Device Bi / C PAP, EPAP 6, IPAP 14, Blood Gas Notified Whom ICU MD, Blood Gas Notified Time 1130 04/28/18 12:08: POC Glucose 206 H 04/28/18 13:23: Specimen Type ART, Sample Site R Radial, pH 7.18 L*, Bicarbonate Actual 20.4 L, POC Total CO2 22, Base Excess -8 L, O2 Saturation 95 , O2 % 35, ABG pCO2 55.2 H, ABG pO2 98, Aroldo Test POS, Respiration Rate 16, O2 Delivery Device Bi / C PAP, EPAP 6, IPAP 14, Blood Gas Notified Whom ICU MD, Blood Gas Notified Time 1325 04/28/18 17:33: POC Glucose 199 H 04/28/18 22:19: POC Glucose 217 H 04/29/18 04:45: WBC 17.8 H, RBC 3.27 L, Hgb 11.3 L, Hct 31.8 L, MCV 97.2, MCH 34.6 H, MCHC 35.5, RDW 13.9, RDW Differential 46.8 H, Plt Count 260, MPV 9.8, Immature Gran % (Auto) 0.600, Neut % (Auto) 90.1 H, Lymph % (Auto) 6.0 L, Bates % (Auto) 3.0, Eos % (Auto) 0.2, Baso % (Auto) 0.1, Absolute Neuts (auto) 16.0 H , Absolute Lymphs (auto) 1.07, Total Counted Not Reportable 04/29/18 04:45: Sodium 140, Potassium 4.3, Chloride 107, Carbon Dioxide 21.0, BUN 28 H, Creatinine 2.65 H, Estim Creat Clear Calc 28.31, Est GFR (MDRD) Af Amer 25 L, Est GFR (MDRD) Non-Af 21 L, BUN/Creatinine Ratio 10.6, Glucose 207 H , Calcium 8.0 L, Phosphorus 3.4, Albumin 2.7 L 04/29/18 04:45: Total Creatine Kinase 1222 H 04/29/18 06:03: Specimen Type DENIZ, Sample Site OTHER, pH 7.38, Bicarbonate Actual 20.6 L, POC Total CO2 22, Base Excess -5 L, O2 Saturation 98, O2 % 30, ABG pCO2 35.1, ABG pO2 101 H, Aroldo Test NA, Respiration Rate 16, O2 Delivery Device Vent, Minute Volume 8.00, Vent Mode A-C, Tidal Volume 500, POC PEEP 5, Blood Gas Notified Whom ICU MD, Blood Gas Notified Time 550 04/29/18 06:49: POC Glucose 212 H Current Medications Acetaminophen (Tylenol Liquid) 650 mg GT Q6H PRN PRN PRN Reason: Non-cardiac pain (mod-severe) Al Hydroxide/Mg Hydroxide (Mylanta Ii) 30 ml GT Q6H PRN PRN PRN Reason: Gastric burning Chlorhexidine Gluconate () 1 each TOPICAL DAILY [facility] Last Admin: 04/29/18 04:03 Dose: 1 each Famotidine (Pepcid) 20 mg GT DAILY [facility] Heparin Sodium (Porcine) (Heparin Na) 5,000 unit SC Q8 [facility] Last Admin: 04/29/18 05:15 Dose: 5,000 unit Hydrocortisone Sodium Succinate (Solu-Cortef) 50 mg IV Q6 [facility] Last Admin: 04/29/18 05:15 Dose: 50 mg Norepinephrine Bitartrate 8 mg (/ Dextrose) 258 mls @ 9.67 mls/hr IV .[id number] [facility] PRN Reason: 5 MCG/MIN Last Admin: 04/29/18 08:06 Dose: 9.67 mls/hr Piperacillin Sod/Tazobactam Sod (Zosyn) 3.375 gm in 50 mls @ 12.5 mls/hr IV Q8 [facility] Last Admin: 04/29/18 05:13 Dose: 12.5 mls/hr Sodium Chloride () 1,000 mls @ 125 mls/hr IV .Q8H [facility] Last Admin: 04/29/18 00:51 Dose: 125 mls/hr Fentanyl () 100 mls @ 2.5 mls/hr IV .Q40H NUNU PRN Reason: Protocol Last Admin: 04/29/18 08:06 Dose: 2.5 mls/hr Propofol (Diprivan) 1,000 mg in 100 mls @ 5.103 mls/hr CONT INF .Q12H NUNU; 5 MCG/KG/MIN PRN Reason: Protocol Last Admin: 04/29/18 06:38 Dose: 5.103 mls/hr Insulin Human Lispro (Humalog Kwikpen (Bkc)) 0 unit SC Q6 [facility] PRN Reason: Protocol Levothyroxine Sodium (Synthroid) 274 mcg GT DAILY@0600 [facility] Last Admin: 04/29/18 05:18 Dose: 274 mcg Magnesium Hydroxide (Milk Of Magnesia) 30 ml GT DAILY PRN PRN PRN Reason: Constipation Ondansetron HCl (Zofran) 4 mg IV Q8H PRN PRN PRN Reason: NAUSEA Promethazine HCl (Phenergan) 12.5 mg IV Q6H PRN PRN PRN Reason: NAUSEA/VOMITING Sodium Chloride () 5 - 30 ml IV UD PRN PRN Reason: SALINE FLUSH Last Admin: 04/28/18 15:58 Dose: 20 ml Topiramate (Topamax) 100 mg GT BID [facility] Last Admin: 04/28/18 22:24 Dose: 100 mg Venlafaxine HCl (Effexor) 37.5 mg PO 4X/DAY [facility] Last Admin: 04/28/18 22:25 Dose: 37.5 mg Medical Necessity - Tobacco Use Smoking Status: Never smoker Tobacco Use: Non-smoker Assessment/Plan All Active Problems (Last Reviewed 04/22/18 @ 17:51 by Sofia Wong) Rhabdomyolysis (Acute) Migraine aura, persistent (Acute) BAMBI (acute kidney injury) (Acute) Acute metabolic encephalopathy (Acute) Hypokalemia (Acute) MRSA (methicillin resistant Staphylococcus aureus) (Acute) Acute respiratory failure (Acute) ARF (acute renal failure) (Acute) Hyperosmolarity due to secondary diabetes (Acute) Depression (Acute) 1. Acute anion gap metabolic acidosis due to uremia * ABGs done yesterday showed pH of 7.18, and bicarb was also low * was intubated o/a of hypercarbic respiratory failure and metabolic acidosis * vent settings: AC/VC TV 500, pEEP 5. FiO2-30% * acidosis has resolved, with bicarb going up to 21 per ABG today. * uremia also resolving * critical care on board. * for possible extubation today if she passes spontaneous breathing trial * 2. Acute metabolic encephalopathy due to uremia and hypothyroidism * currently intubated and sedated with propofol. * RASS score is 1. * uremia resolving. * will monitor. Opiates on hold. * 3. Acute hypercarbic respiratory failure due to acute metabolic encephalopathy * intubated and sedated after she failed NIPPV trial * respiratory failure likely compounded by severe hypothyroidism and metabolic encephalopathy. * vent settings as mentioned above * critical care on board * 4. Distributive shock vs severe hyothyroidism * Patient has remained hypotensive and requires persistent IV fluids. * cortisol level was was 22.8, ruling out adrenal insufficiency. * patient on stress dose steroids though as potential secondary adrenal insufficiency was a factor. * continue IVF and try to wean off pressors. * 5. Acute hyponatremia * Resolved. Sodium is 140. * Will monitor. * 6. BAMBI likely pre-renal due to ATN * Resolving. Creatinine down to 2.65 from about 4 on admission. * BUN down to 28. On IV fluids normal saline for hydration. * Nephrology on board. 7. Poorly controlled hypothyroidism * Patient noncompliant with her Synthroid. TSH was 160 on admission and was 90 on repeat. Free TSH was 0.19. At risk of myxedema * Started on IV Synthroid. * * 8. Rhabdomyolysis * CPK was ~ 3000 on admission, now trended down to 1222 * severe hypothyroidism likely played a role in this also * continue IVF and monitor * 9. . Sepsis- source of infection is not clear * blood cultures and urine cultures pending * on IV zosyn. * * 8. Migraine headache: on topamax. Hold off on NSAIDs due to severe BAMBI 9. Hypertension: * remains on levophed and IVF * BP meds all on hold. * * * 10. Anxiety, depression and bipolar disorder: On Effexor 75 mg twice daily. Total daily dose reduced by 50% due to renal function. 11. Chronic pain syndrome: on chronic narcotic therapy. Utox was positive for opiates. DVT prophylaxis: heparin Code status: full code This note was generated with [employer] dictation software. It may contain incorrect words, spelling, and punctuation that were not noted in checking the note before signing. Code Visit Inpatient E&M: 26564 Subs Hosp L3
[2018-04-29] MEDS: Topiramate 100 MG Tablet GT ×2 (09:48→21:36)
[2018-04-29] MEDS: Venlafaxine HCl 75 MG Tablet 37.5 MG PO ×4 (09:48→21:36)
[2018-04-29] MEDS: Famotidine 20 MG Tablet GT (09:49)
--- NOTE | 2018-04-29 09:55 | CASEMGMT ---
Pt remains on the ventilator today, once pt is off the vent SW will speak w/pt regarding possible SNF placement, as physician states pt may benefit from detention placement after discharge. SARITA Magdaleno, HOSPICE RN
--- NOTE | 2018-04-29 10:00 | NURSING ---
Fentanyl titrated based on pt's numeric 8/10 pain to abdomen.
--- NOTE | 2018-04-29 10:24 | NURSING ---
Teaching of pt chronic medical conditions deferred until pt not longer under sedation/on vent and able to participate in teaching
[2018-04-29] MEDS: Insulin Lispro 100 UNIT/ML INSULN.PEN SC ×2 (11:03→17:43)
[2018-04-29 11:05] LABS: Bedside Glucose 202 mg/dL (70-110)
[2018-04-29 11:51] LABS: Base Excess -8 mmol/L (-2 to +2); Bicarbonate 18.5 mmol/L (22-26); Blood Gas Specimen Type ALINE; FI02 35; Mode A-C; O2 Delivery Device Vent; PEEP 5; PO2 123 mmHG (75-100); RR 16; SITE L Radial; SO2 98 % (95-99); Time Given 1520; Total Carbon Dioxide 20 mmol/L; Vt 500; pCO2 37.9 mmHg (35-45)
--- NOTE | 2018-04-29 12:51 | CASEMGMT ---
Addendum entered by Flakita Felton 04/30/18 11:43: SW spoke w/pt about LW and POA, pt states has the forms at home and has not filled them out yet, does not want to fill them out at present. SW offered to assist pt in filling them out, offered to have pt call this SW after she is discharged to complete the papers, pt declined. SARITA Magdaleno, IT BUSINESS ANALYST Original Note: Pt indicated would bring LW in, pt had said POA forms on chart, they are not. Pt intubated, will ask pt about this when appropriate. SARITA Magdaleno, IT BUSINESS ANALYST
[2018-04-29 17:51] LABS: Bedside Glucose 170 mg/dL (70-110)
[2018-04-29] MEDS: Chlorhexidine 15 ML PO (21:37)
[2018-04-30] VITALS (40 sets, daily range): BP systolic 84–139; BP diastolic 44–93; PULSE 64–100; RESP 10–20; TEMP 36.1–36.9; O2SAT 96–100
[2018-04-30] MEDS: Hydrocortisone Sod Succinate 100 MG/2 ML Vial 50 MG IV ×4 (00:05→21:42)
[2018-04-30] MEDS: Insulin Lispro 100 UNIT/ML INSULN.PEN SC ×3 (00:05→17:15)
[2018-04-30] MEDS: 0.9% NaCl Peripheral Flush Adult/Peds IV ×2 (00:07→05:41)
[2018-04-30 00:26] LABS: Bedside Glucose 168 mg/dL (70-110)
[2018-04-30] MEDS: 0.45% Normal Saline 1,000 ML 125 ML IV (01:48)
[2018-04-30] MEDS: Propofol 10MG/Ml 1,000 MG/100 ML Bottle 5.103 MG CONT INF (01:49)
[2018-04-30 04:06] LABS: Absolute Lymphocyte Count 1.39 X10^3/ul (0.83-4.51); Absolute Neutrophil Count 13.2 X10^3/uL (2.0-7.7); Basophil# 0.01 X10^3/uL; Basophil% 0.1 % (0-1); Hemoglobin 9.9 g/dl (12.0-15.0); Lymphocyte # 1.39 X10^3/ul (4.0); Lymphocyte % 9.3 % (19-41); Mean Corp Hgb Conc 34.1 g/gl (32-36); Mean Corpuscular Hgb 33.8 pg (27.0-32.0); Mean Platelet Vol. 9.4 fl (6.2-12.0); Monocyte# 0.29 X10^3/uL; Monocyte% 1.9 % (0-10); Neutrophil # 13.22 X10^3/uL (2.7-7.7); Neutrophil % 88.5 % (47-70); Platelet Count 226 K/mm3 (150-450); RBC Distribution Width CV 14.3 % (11.6-14.6); RBC Distribution Width SD 49.7 fl (35.1-43.9); Red Blood Count 2.93 M/mm3 (4.2-5.4); White Blood Count 14.9 K/mm3 (4.4-11.0)
[2018-04-30 04:07] LABS: POSITIVE COUNT NO; POSITIVE DIFFERENTIAL NO; POSITIVE MORPHOLOGY NO
[2018-04-30 04:20] LABS: Anion Gap 12 (5-15); BUN 22 mg/dL (7-18); BUN/Creat Ratio 13.2 RATIO (10-20); Calcium,Total 7.5 mg/dL (8.5-10.1); Chloride 105 mmol/L (98-107); Creatinine, Serum 1.67 mg/dL (0.55-1.02); EST Glomerular Filtration Rate 35 mL/min (>60); Est Glom Filt Rate - Afr Amer 43 mL/min (>60); Estimated Creatinine Clearance 44.93 ml/min; Glucose 180 mg/dL (74-106); Potassium 3.9 mmol/L (3.5-5.1); Sodium Level 139 mmol/L (136-145)
[2018-04-30] MEDS: Levothyroxine 137 MCG Tablet 274 MCG GT (05:40)
[2018-04-30] MEDS: Heparin Injection (Vial) 5,000 UNIT/ML VIAL 5000 UNIT SC ×2 (05:41→13:14)
[2018-04-30] MEDS: Piperacil/Tazobactam 3.375 GM/50 ML ML IV (05:41)
[2018-04-30] MEDS: CHLORHEXIDINE GLUC 2% CLOTH 1 EACH TOWELETTE TOPICAL (05:42)
[2018-04-30 06:06] LABS: Bedside Glucose 153 mg/dL (70-110)
--- NOTE | 2018-04-30 06:56 | PCM.PN.INT ---
Subjective: The patient was seen and examined at the bedside this morning. Events from the last 24 hours have been reviewed. The patient is currently afebrile, hemodynamically stable and maintaining appropriate oxygen saturations on an FiO2 of 30%. The patient was able to be weaned from Levophed this morning around 0400 hrs. She remains hemodynamically stable. Sedation is currently on hold. The patient passed her spontaneous breathing trial. She is alert, cooperative and appropriately interactive. Objective: The patient's most recent lab work, culture data and imaging studies have all been personally reviewed. Blood and urine cultures have shown no growth to date. Surface echocardiogram revealed normal LV size and thickness with an ejection fraction of 75%. There was evidence of possible RV apical strain with a right ventricular systolic pressure estimated to be 24 mmHg. General: - - Remains intubated and mechanically ventilated. Currently tolerating CPAP mode mechanical ventilation without issue. HEENT: Atraumatic, PERRLA, Normocephalic Oral: No Gingival or Mucosal Lesions/ Ulcerations, - - Endotracheal and OG tubes remain in place. Neck: Supple, No Nodes, Trachea Midline, - - Right-sided subclavian central venous catheter remains in place. Lungs: No rhonchi, No wheeze, No rales, Diminished Cardiovascular: Regular rate, Regular Rhythm, Normal S1, Normal S2, No murmurs Abdomen: Bowel Sounds Present, Soft, Non Tender, Obese Extremities: No clubbing, No cyanosis, No edema Skin: - - No significant change from previous. Musculoskeletal: No Tenderness to Palpation of Joints or Extremities, No Muscle Wasting Lymphatic: No Cervical, Supraclavicular, or Inguinal Adenopathy Neurological: - - No focal neurological deficits. Moves all extremities spontaneously. Alert and following commands appropriately. Vital Signs Temp Pulse Resp BP Pulse Ox 98.4 F 94 10 L 135/73 H 98 04/30/18 04:00 04/30/18 06:00 04/30/18 06:00 04/30/18 06:00 04/30/18 06:00 Oxygen Flow Rate (L/min) 2 Oxygen Delivery Method Mechanical Ventilator Weight: 375 lb 0.101 oz Body Mass Index (BMI) 55.3 Intake and Output for Last 24 Hours 04/28/18 04/29/18 04/30/18 23:59 23:59 23:59 Intake Total 6965.1 / 6965.1 3491 / 3491 3027.0 / 3027.0 Output Total 7400 / 7400 5450 / 5450 400 / 400 Balance -434.9 / -434.9 -1959 / -1958 2627.0 / 2627.0 Labs (Last 48 Hours) 04/28/18 04/28/18 04/28/18 07:05 07:05 07:05 WBC RBC Hgb Hct MCV MCH MCHC RDW RDW Differential Plt Count MPV Immature Gran % (Auto) Neut % (Auto) Lymph % (Auto) Talbot % (Auto) Eos % (Auto) Baso % (Auto) Absolute Neuts (auto) Absolute Lymphs (auto) Total Counted Specimen Type Sample Site pH Bicarbonate Actual POC Total CO2 Base Excess O2 Saturation O2 % ABG pCO2 ABG pO2 Aroldo Test Respiration Rate O2 Delivery Device Minute Volume Vent Mode Tidal Volume POC PEEP EPAP IPAP Blood Gas Notified Whom Blood Gas Notified Time Sodium Potassium Chloride Carbon Dioxide Anion Gap BUN Creatinine Estim Creat Clear Calc Est GFR (MDRD) Af Amer Est GFR (MDRD) Non-Af BUN/Creatinine Ratio Glucose Lactic Acid 1.4 Calcium Phosphorus Total Creatine Kinase Troponin I < 0.015 Albumin Triglycerides TSH 90.60 H Cortisol POC Glucose 04/28/18 04/28/18 04/28/18 07:05 07:05 08:22 WBC RBC Hgb Hct MCV MCH MCHC RDW RDW Differential Plt Count MPV Immature Gran % (Auto) Neut % (Auto) Lymph % (Auto) Talbot % (Auto) Eos % (Auto) Baso % (Auto) Absolute Neuts (auto) Absolute Lymphs (auto) Total Counted Specimen Type Sample Site pH Bicarbonate Actual POC Total CO2 Base Excess O2 Saturation O2 % ABG pCO2 ABG pO2 Aroldo Test Respiration Rate O2 Delivery Device Minute Volume Vent Mode Tidal Volume POC PEEP EPAP IPAP Blood Gas Notified Whom Blood Gas Notified Time Sodium Potassium Chloride Carbon Dioxide Anion Gap BUN Creatinine Estim Creat Clear Calc Est GFR (MDRD) Af Amer Est GFR (MDRD) Non-Af BUN/Creatinine Ratio Glucose Lactic Acid Calcium Phosphorus Total Creatine Kinase 2218 H Troponin I Albumin Triglycerides 118 TSH Cortisol 22.80 H POC Glucose 179 H 04/28/18 04/28/18 04/28/18 09:46 11:29 12:08 WBC RBC Hgb Hct MCV MCH MCHC RDW RDW Differential Plt Count MPV Immature Gran % (Auto) Neut % (Auto) Lymph % (Auto) Talbot % (Auto) Eos % (Auto) Baso % (Auto) Absolute Neuts (auto) Absolute Lymphs (auto) Total Counted Specimen Type ART ART Sample Site R Radial R Radial pH 7.19 L* 7.19 L* Bicarbonate Actual 19.2 L 20.5 L POC Total CO2 21 22 Base Excess -9 L -8 L O2 Saturation 86 L 100 H O2 % 50 ABG pCO2 49.8 H 53.6 H ABG pO2 64 L 217 H Aroldo Test POS POS Respiration Rate 12 O2 Delivery Device Room Air Bi / C PAP Minute Volume Vent Mode Tidal Volume POC PEEP EPAP 6 IPAP 14 Blood Gas Notified Whom ICU ICU Blood Gas Notified Time 945 1130 Sodium Potassium Chloride Carbon Dioxide Anion Gap BUN Creatinine Estim Creat Clear Calc Est GFR (MDRD) Af Amer Est GFR (MDRD) Non-Af BUN/Creatinine Ratio Glucose Lactic Acid Calcium Phosphorus Total Creatine Kinase Troponin I Albumin Triglycerides TSH Cortisol POC Glucose 206 H 04/28/18 04/28/18 04/28/18 13:23 15:17 17:33 WBC RBC Hgb Hct MCV MCH MCHC RDW RDW Differential Plt Count MPV Immature Gran % (Auto) Neut % (Auto) Lymph % (Auto) Talbot % (Auto) Eos % (Auto) Baso % (Auto) Absolute Neuts (auto) Absolute Lymphs (auto) Total Counted Specimen Type ART DENIZ Sample Site R Radial L Radial pH 7.18 L* 7.30 L Bicarbonate Actual 20.4 L 18.5 L POC Total CO2 22 20 Base Excess -8 L -8 L O2 Saturation 95 98 O2 % 35 35 ABG pCO2 55.2 H 37.9 ABG pO2 98 123 H Aroldo Test POS NA Respiration Rate 16 16 O2 Delivery Device Bi / C PAP Vent Minute Volume Vent Mode A-C Tidal Volume 500 POC PEEP 5 EPAP 6 IPAP 14 Blood Gas Notified Whom ICU ICU Blood Gas Notified Time 1325 1520 Sodium Potassium Chloride Carbon Dioxide Anion Gap BUN Creatinine Estim Creat Clear Calc Est GFR (MDRD) Af Amer Est GFR (MDRD) Non-Af BUN/Creatinine Ratio Glucose Lactic Acid Calcium Phosphorus Total Creatine Kinase Troponin I Albumin Triglycerides TSH Cortisol POC Glucose 199 H 04/28/18 04/29/18 04/29/18 22:19 04:45 04:45 WBC 17.8 H RBC 3.27 L Hgb 11.3 L Hct 31.8 L MCV 97.2 MCH 34.6 H MCHC 35.5 RDW 13.9 RDW Differential 46.8 H Plt Count 260 MPV 9.8 Immature Gran % (Auto) 0.600 Neut % (Auto) 90.1 H Lymph % (Auto) 6.0 L Talbot % (Auto) 3.0 Eos % (Auto) 0.2 Baso % (Auto) 0.1 Absolute Neuts (auto) 16.0 H Absolute Lymphs (auto) 1.07 Total Counted Not Reportable Specimen Type Sample Site pH Bicarbonate Actual POC Total CO2 Base Excess O2 Saturation O2 % ABG pCO2 ABG pO2 Aroldo Test Respiration Rate O2 Delivery Device Minute Volume Vent Mode Tidal Volume POC PEEP EPAP IPAP Blood Gas Notified Whom Blood Gas Notified Time Sodium 140 Potassium 4.3 Chloride 107 Carbon Dioxide 21.0 Anion Gap BUN 28 H Creatinine 2.65 H Estim Creat Clear Calc 28.31 Est GFR (MDRD) Af Amer 25 L Est GFR (MDRD) Non-Af 21 L BUN/Creatinine Ratio 10.6 Glucose 207 H Lactic Acid Calcium 8.0 L Phosphorus 3.4 Total Creatine Kinase Troponin I Albumin 2.7 L Triglycerides TSH Cortisol POC Glucose 217 H 04/29/18 04/29/18 04/29/18 04:45 06:03 06:49 WBC RBC Hgb Hct MCV MCH MCHC RDW RDW Differential Plt Count MPV Immature Gran % (Auto) Neut % (Auto) Lymph % (Auto) Talbot % (Auto) Eos % (Auto) Baso % (Auto) Absolute Neuts (auto) Absolute Lymphs (auto) Total Counted Specimen Type DENIZ Sample Site OTHER pH 7.38 Bicarbonate Actual 20.6 L POC Total CO2 22 Base Excess -5 L O2 Saturation 98 O2 % 30 ABG pCO2 35.1 ABG pO2 101 H Aroldo Test NA Respiration Rate 16 O2 Delivery Device Vent Minute Volume 8.00 Vent Mode A-C Tidal Volume 500 POC PEEP 5 EPAP IPAP Blood Gas Notified Whom ICU MD Blood Gas Notified Time 550 Sodium Potassium Chloride Carbon Dioxide Anion Gap BUN Creatinine Estim Creat Clear Calc Est GFR (MDRD) Af Amer Est GFR (MDRD) Non-Af BUN/Creatinine Ratio Glucose Lactic Acid Calcium Phosphorus Total Creatine Kinase 1222 H Troponin I Albumin Triglycerides TSH Cortisol POC Glucose 212 H 04/29/18 04/29/18 04/30/18 11:01 17:41 00:04 WBC RBC Hgb Hct MCV MCH MCHC RDW RDW Differential Plt Count MPV Immature Gran % (Auto) Neut % (Auto) Lymph % (Auto) Talbot % (Auto) Eos % (Auto) Baso % (Auto) Absolute Neuts (auto) Absolute Lymphs (auto) Total Counted Specimen Type Sample Site pH Bicarbonate Actual POC Total CO2 Base Excess O2 Saturation O2 % ABG pCO2 ABG pO2 Aroldo Test Respiration Rate O2 Delivery Device Minute Volume Vent Mode Tidal Volume POC PEEP EPAP IPAP Blood Gas Notified Whom Blood Gas Notified Time Sodium Potassium Chloride Carbon Dioxide Anion Gap BUN Creatinine Estim Creat Clear Calc Est GFR (MDRD) Af Amer Est GFR (MDRD) Non-Af BUN/Creatinine Ratio Glucose Lactic Acid Calcium Phosphorus Total Creatine Kinase Troponin I Albumin Triglycerides TSH Cortisol POC Glucose 202 H 170 H 168 H 04/30/18 04/30/18 04/30/18 04:00 04:00 05:38 WBC 14.9 H RBC 2.93 L Hgb 9.9 L Hct 29.0 L MCV 99.0 MCH 33.8 H MCHC 34.1 RDW 14.3 RDW Differential 49.7 H Plt Count 226 MPV 9.4 Immature Gran % (Auto) 0.200 Neut % (Auto) 88.5 H Lymph % (Auto) 9.3 L Talbot % (Auto) 1.9 Eos % (Auto) 0.0 Baso % (Auto) 0.1 Absolute Neuts (auto) 13.2 H Absolute Lymphs (auto) 1.39 Total Counted Not Reportable Specimen Type Sample Site pH Bicarbonate Actual POC Total CO2 Base Excess O2 Saturation O2 % ABG pCO2 ABG pO2 Aroldo Test Respiration Rate O2 Delivery Device Minute Volume Vent Mode Tidal Volume POC PEEP EPAP IPAP Blood Gas Notified Whom Blood Gas Notified Time Sodium 139 Potassium 3.9 Chloride 105 Carbon Dioxide 22.0 Anion Gap 12 BUN 22 H Creatinine 1.67 H Estim Creat Clear Calc 44.93 Est GFR (MDRD) Af Amer 43 L Est GFR (MDRD) Non-Af 35 L BUN/Creatinine Ratio 13.2 Glucose 180 H Lactic Acid Calcium 7.5 L Phosphorus Total Creatine Kinase Troponin I Albumin Triglycerides TSH Cortisol POC Glucose 153 H Microbiology 04/28/18 07:00 Urine Catheter - Catheter Urine Culture - Preliminary Culture exhibits no growth. Clinical Impression(s) from Imaging Studies Chest X-Ray 04/27/18 16:38 IMPRESSION: Normal x-ray examination of the chest. Electronically Signed: Aysha Jimenez MD at 18:39 EDT Tel , Service support , Abdomen X-Ray 04/27/18 17:45 IMPRESSION: Mild gaseous distention of the colon, without high-grade obstruction or obvious cutoff. If there is continued clinical concern, CT of the abdomen is advised. Electronically Signed: Aysha Jimenez MD at 18:44 EDT Tel , Service support , Chest X-Ray 04/28/18 00:35 IMPRESSION: There is NO acute cardiopulmonary abnormality. The central venous catheter is in good position. There is NO visible pneumothorax. Electronically Signed: Domo Boston MD at 1:15 EDT , Service support , Chest X-Ray 04/28/18 14:36 IMPRESSION: All the support tubes are in good position. Electronically Signed: Feliz Nino MD at 15:14 EDT Tel [phone], Service support , Brain CT 04/28/18 22:35 IMPRESSION: Normal unenhanced CT scan of the brain. Electronically Signed: Domo Boston MD at 1:25 EDT , Service support , Medical Necessity - Tobacco Use Smoking Status: Never smoker Tobacco Use: Non-smoker Assessment/Plan All Active Problems (Last Reviewed 04/22/18 @ 17:51 by Sofia Wong) Rhabdomyolysis (Acute) Migraine aura, persistent (Acute) BAMBI (acute kidney injury) (Acute) Acute metabolic encephalopathy (Acute) Hypokalemia (Acute) MRSA (methicillin resistant Staphylococcus aureus) (Acute) Acute respiratory failure (Acute) ARF (acute renal failure) (Acute) Hyperosmolarity due to secondary diabetes (Acute) Depression (Acute) RECOMMENDATIONS: 1. The patient is appropriate for a trial of extubation this morning. 2. Once extubated, will initiate empiric BiPAP therapy with naps and nightly. 3. Perform bedside swallow evaluation this morning. 4. Provide with incentive spirometer and encourage use. Mobilize patient as tolerated. 5. Okay from my perspective to discontinue arterial line. 6. Given hemodynamic stability, will begin to wean stress dose steroids. 7. Given afebrile status and negative infectious workup, antibiotics can be discontinued. IMPRESSIONS: 1. Distributive shock versus overt hypothyroidism Unclear infectious source at this time. Cultures have been unrevealing to date and chest imaging has not revealed any focal infiltrate. The patient was treated initially with empiric Zosyn, which can be discontinued at this time, given negative infectious workup. The patient was, for period of time, on vasopressor support to maintain hemodynamic stability. This has been weaned at this time, in the setting of initiation of stress dose steroids. At this time, will also begin to wean the patient's hydrocortisone. Arterial line will be discontinued. Continue Synthroid as ordered. It was possible that the patient's overt hypothyroidism may have contributed to her previous state of hemodynamic instability, with possibility that the patient had developed a borderline myxedema status. She did receive IV Synthroid initially and was placed on stress dose steroids for potential secondary adrenal insufficiency. 2. Acute hypercarbic respiratory failure The patient was intubated on April 28 after she was noted to be hypercarbic and encephalopathic. The patient failed trials of noninvasive positive pressure ventilation, which necessitated endotracheal tube placement. Since that time, the patient's gas exchange state has significantly improved. Her ventilator requirements are minimal. It is certainly possible that with the patient's hypothyroidism/myxedema state, she developed hypercarbia secondary to hypoventilation from central depression of her ventilatory drive, which was compounded by likely obstructive sleep apnea. Regardless, the patient is now alert and appropriately interactive. She passed her spontaneous breathing trial this morning and was subsequently extubated under my direct supervision. She will be placed on empiric BiPAP therapy 14/6 cm of water with naps and nightly from this point forward. 3. Acute on chronic kidney disease Improving. Suspected secondary to ischemic ATN. The patient is now actively diuresing with improvement in her creatinine. We will plan to discontinue supplemental IV fluids once the patient is tolerating p.o. intake. 4. Metabolic encephalopathy Improved. Likely multifactorial in etiology with underlying overt hypothyroidism, possible polypharmacy and hypercarbia contributing. Sedating medications are currently on hold. Hypercarbic state has improved since being started on invasive mechanical ventilation. Her underlying hypothyroidism is currently under treatment. 5. Elevated CK Possible mild rhabdo versus effects of untreated hypothyroidism. We will continue gentle IV fluid hydration with half-normal saline. The patient is able to be started on a p.o. diet today, her supplemental IV fluids will be discontinued. 6. Suspected sleep disordered breathing The patient certainly demonstrates signs and symptoms concerning for underlying obstructive sleep apnea. Upon extubation, she should be placed empirically on BiPAP with a pressure support of 14/6 cm of water. Ideally, she should have outpatient follow-up and undergo a diagnostic polysomnogram. 7. Personal history of chronic pain syndrome/diabetes/depression/hypothyroidism/morbid obesity Complicates care, management, recovery and prognosis. Continue Accu-Cheks and sliding scale insulin coverage every 6 hours for now. TIME: 35 minutes of critical care time, inclusive of procedures, was spent addressing the patient's distributive shock versus overt hypothyroidism, acute on chronic kidney disease, metabolic encephalopathy, elevated CK, suspected sleep disordered breathing, review of all data and collaboration with the care team. ([id number]) Code Visit 9xxxx: [id number] Critical care first hour
--- NOTE | 2018-04-30 07:07 | PN_ITS ---
Subjective: The patient was seen and examined at the bedside this morning. Events from the last 24 hours have been reviewed. The patient is currently afebrile, hemodynamically stable and maintaining appropriate oxygen saturations on an FiO2 of 30%. The patient was able to be weaned from Levophed this morning around 0400 hrs. She remains hemodynamically stable. Sedation is currently on hold. The patient passed her spontaneous breathing trial. She is alert, cooperative and appropriately interactive. Objective: The patient's most recent lab work, culture data and imaging studies have all been personally reviewed. Blood and urine cultures have shown no growth to date. Surface echocardiogram revealed normal LV size and thickness with an ejection fraction of 75%. There was evidence of possible RV apical strain with a right ventricular systolic pressure estimated to be 24 mmHg. General: - - Remains intubated and mechanically ventilated. Currently tolerating CPAP mode mechanical ventilation without issue. HEENT: Atraumatic, PERRLA, Normocephalic Oral: No Gingival or Mucosal Lesions/ Ulcerations, - - Endotracheal and OG tubes remain in place. Neck: Supple, No Nodes, Trachea Midline, - - Right-sided subclavian central venous catheter remains in place. Lungs: No rhonchi, No wheeze, No rales, Diminished Cardiovascular: Regular rate, Regular Rhythm, Normal S1, Normal S2, No murmurs Abdomen: Bowel Sounds Present, Soft, Non Tender, Obese Extremities: No clubbing, No cyanosis, No edema Skin: - - No significant change from previous. Musculoskeletal: No Tenderness to Palpation of Joints or Extremities, No Muscle Wasting Lymphatic: No Cervical, Supraclavicular, or Inguinal Adenopathy Neurological: - - No focal neurological deficits. Moves all extremities spontaneously. Alert and following commands appropriately. Vital Signs Temp Pulse Resp BP Pulse Ox 98.4 F 94 10 L 135/73 H 98 04/30/18 04:00 04/30/18 06:00 04/30/18 06:00 04/30/18 06:00 04/30/18 06:00 Oxygen Flow Rate (L/min) 2 Oxygen Delivery Method Mechanical Ventilator Weight: 375 lb 0.101 oz Body Mass Index (BMI) 55.3 Intake and Output for Last 24 Hours 04/28/18 04/29/18 04/30/18 23:59 23:59 23:59 Intake Total 6965.1 / 6965.1 3491 / 3491 3027.0 / 3027.0 Output Total 7400 / 7400 5450 / 5450 400 / 400 Balance -434.9 / -434.9 -1959 / -1958 2627.0 / 2627.0 Labs (Last 48 Hours) 04/28/18 04/28/18 04/28/18 07:05 07:05 07:05 WBC RBC Hgb Hct MCV MCH MCHC RDW RDW Differential Plt Count MPV Immature Gran % (Auto) Neut % (Auto) Lymph % (Auto) [place] % (Auto) Eos % (Auto) Baso % (Auto) Absolute Neuts (auto) Absolute Lymphs (auto) Total Counted Specimen Type Sample Site pH Bicarbonate Actual POC Total CO2 Base Excess O2 Saturation O2 % ABG pCO2 ABG pO2 Aroldo Test Respiration Rate O2 Delivery Device Minute Volume Vent Mode Tidal Volume POC PEEP EPAP IPAP Blood Gas Notified Whom Blood Gas Notified Time Sodium Potassium Chloride Carbon Dioxide Anion Gap BUN Creatinine Estim Creat Clear Calc Est GFR (MDRD) Af Amer Est GFR (MDRD) Non-Af BUN/Creatinine Ratio Glucose Lactic Acid 1.4 Calcium Phosphorus Total Creatine Kinase Troponin I < 0.015 Albumin Triglycerides TSH 90.60 H Cortisol POC Glucose 04/28/18 04/28/18 04/28/18 07:05 07:05 08:22 WBC RBC Hgb Hct MCV MCH MCHC RDW RDW Differential Plt Count MPV Immature Gran % (Auto) Neut % (Auto) Lymph % (Auto) [place] % (Auto) Eos % (Auto) Baso % (Auto) Absolute Neuts (auto) Absolute Lymphs (auto) Total Counted Specimen Type Sample Site pH Bicarbonate Actual POC Total CO2 Base Excess O2 Saturation O2 % ABG pCO2 ABG pO2 Aroldo Test Respiration Rate O2 Delivery Device Minute Volume Vent Mode Tidal Volume POC PEEP EPAP IPAP Blood Gas Notified Whom Blood Gas Notified Time Sodium Potassium Chloride Carbon Dioxide Anion Gap BUN Creatinine Estim Creat Clear Calc Est GFR (MDRD) Af Amer Est GFR (MDRD) Non-Af BUN/Creatinine Ratio Glucose Lactic Acid Calcium Phosphorus Total Creatine Kinase 2218 H Troponin I Albumin Triglycerides 118 TSH Cortisol 22.80 H POC Glucose 179 H 04/28/18 04/28/18 04/28/18 09:46 11:29 12:08 WBC RBC Hgb Hct MCV MCH MCHC RDW RDW Differential Plt Count MPV Immature Gran % (Auto) Neut % (Auto) Lymph % (Auto) [place] % (Auto) Eos % (Auto) Baso % (Auto) Absolute Neuts (auto) Absolute Lymphs (auto) Total Counted Specimen Type ART ART Sample Site R Radial R Radial pH 7.19 L* 7.19 L* Bicarbonate Actual 19.2 L 20.5 L POC Total CO2 21 22 Base Excess -9 L -8 L O2 Saturation 86 L 100 H O2 % 50 ABG pCO2 49.8 H 53.6 H ABG pO2 64 L 217 H Aroldo Test POS POS Respiration Rate 12 O2 Delivery Device Room Air Bi / C PAP Minute Volume Vent Mode Tidal Volume POC PEEP EPAP 6 IPAP 14 Blood Gas Notified Whom ICU ICU Blood Gas Notified Time 945 1130 Sodium Potassium Chloride Carbon Dioxide Anion Gap BUN Creatinine Estim Creat Clear Calc Est GFR (MDRD) Af Amer Est GFR (MDRD) Non-Af BUN/Creatinine Ratio Glucose Lactic Acid Calcium Phosphorus Total Creatine Kinase Troponin I Albumin Triglycerides TSH Cortisol POC Glucose 206 H 04/28/18 04/28/18 04/28/18 13:23 15:17 17:33 WBC RBC Hgb Hct MCV MCH MCHC RDW RDW Differential Plt Count MPV Immature Gran % (Auto) Neut % (Auto) Lymph % (Auto) [place] % (Auto) Eos % (Auto) Baso % (Auto) Absolute Neuts (auto) Absolute Lymphs (auto) Total Counted Specimen Type ART DENIZ Sample Site R Radial L Radial pH 7.18 L* 7.30 L Bicarbonate Actual 20.4 L 18.5 L POC Total CO2 22 20 Base Excess -8 L -8 L O2 Saturation 95 98 O2 % 35 35 ABG pCO2 55.2 H 37.9 ABG pO2 98 123 H Aroldo Test POS NA Respiration Rate 16 16 O2 Delivery Device Bi / C PAP Vent Minute Volume Vent Mode A-C Tidal Volume 500 POC PEEP 5 EPAP 6 IPAP 14 Blood Gas Notified Whom ICU ICU Blood Gas Notified Time 1325 1520 Sodium Potassium Chloride Carbon Dioxide Anion Gap BUN Creatinine Estim Creat Clear Calc Est GFR (MDRD) Af Amer Est GFR (MDRD) Non-Af BUN/Creatinine Ratio Glucose Lactic Acid Calcium Phosphorus Total Creatine Kinase Troponin I Albumin Triglycerides TSH Cortisol POC Glucose 199 H 04/28/18 04/29/18 04/29/18 22:19 04:45 04:45 WBC 17.8 H RBC 3.27 L Hgb 11.3 L Hct 31.8 L MCV 97.2 MCH 34.6 H MCHC 35.5 RDW 13.9 RDW Differential 46.8 H Plt Count 260 MPV 9.8 Immature Gran % (Auto) 0.600 Neut % (Auto) 90.1 H Lymph % (Auto) 6.0 L [place] % (Auto) 3.0 Eos % (Auto) 0.2 Baso % (Auto) 0.1 Absolute Neuts (auto) 16.0 H Absolute Lymphs (auto) 1.07 Total Counted Not Reportable Specimen Type Sample Site pH Bicarbonate Actual POC Total CO2 Base Excess O2 Saturation O2 % ABG pCO2 ABG pO2 Aroldo Test Respiration Rate O2 Delivery Device Minute Volume Vent Mode Tidal Volume POC PEEP EPAP IPAP Blood Gas Notified Whom Blood Gas Notified Time Sodium 140 Potassium 4.3 Chloride 107 Carbon Dioxide 21.0 Anion Gap BUN 28 H Creatinine 2.65 H Estim Creat Clear Calc 28.31 Est GFR (MDRD) Af Amer 25 L Est GFR (MDRD) Non-Af 21 L BUN/Creatinine Ratio 10.6 Glucose 207 H Lactic Acid Calcium 8.0 L Phosphorus 3.4 Total Creatine Kinase Troponin I Albumin 2.7 L Triglycerides TSH Cortisol POC Glucose 217 H 04/29/18 04/29/18 04/29/18 04:45 06:03 06:49 WBC RBC Hgb Hct MCV MCH MCHC RDW RDW Differential Plt Count MPV Immature Gran % (Auto) Neut % (Auto) Lymph % (Auto) [place] % (Auto) Eos % (Auto) Baso % (Auto) Absolute Neuts (auto) Absolute Lymphs (auto) Total Counted Specimen Type DENIZ Sample Site OTHER pH 7.38 Bicarbonate Actual 20.6 L POC Total CO2 22 Base Excess -5 L O2 Saturation 98 O2 % 30 ABG pCO2 35.1 ABG pO2 101 H Aroldo Test NA Respiration Rate 16 O2 Delivery Device Vent Minute Volume 8.00 Vent Mode A-C Tidal Volume 500 POC PEEP 5 EPAP IPAP Blood Gas Notified Whom ICU MD Blood Gas Notified Time 550 Sodium Potassium Chloride Carbon Dioxide Anion Gap BUN Creatinine Estim Creat Clear Calc Est GFR (MDRD) Af Amer Est GFR (MDRD) Non-Af BUN/Creatinine Ratio Glucose Lactic Acid Calcium Phosphorus Total Creatine Kinase 1222 H Troponin I Albumin Triglycerides TSH Cortisol POC Glucose 212 H 04/29/18 04/29/18 04/30/18 11:01 17:41 00:04 WBC RBC Hgb Hct MCV MCH MCHC RDW RDW Differential Plt Count MPV Immature Gran % (Auto) Neut % (Auto) Lymph % (Auto) [place] % (Auto) Eos % (Auto) Baso % (Auto) Absolute Neuts (auto) Absolute Lymphs (auto) Total Counted Specimen Type Sample Site pH Bicarbonate Actual POC Total CO2 Base Excess O2 Saturation O2 % ABG pCO2 ABG pO2 Aroldo Test Respiration Rate O2 Delivery Device Minute Volume Vent Mode Tidal Volume POC PEEP EPAP IPAP Blood Gas Notified Whom Blood Gas Notified Time Sodium Potassium Chloride Carbon Dioxide Anion Gap BUN Creatinine Estim Creat Clear Calc Est GFR (MDRD) Af Amer Est GFR (MDRD) Non-Af BUN/Creatinine Ratio Glucose Lactic Acid Calcium Phosphorus Total Creatine Kinase Troponin I Albumin Triglycerides TSH Cortisol POC Glucose 202 H 170 H 168 H 04/30/18 04/30/18 04/30/18 04:00 04:00 05:38 WBC 14.9 H RBC 2.93 L Hgb 9.9 L Hct 29.0 L MCV 99.0 MCH 33.8 H MCHC 34.1 RDW 14.3 RDW Differential 49.7 H Plt Count 226 MPV 9.4 Immature Gran % (Auto) 0.200 Neut % (Auto) 88.5 H Lymph % (Auto) 9.3 L [place] % (Auto) 1.9 Eos % (Auto) 0.0 Baso % (Auto) 0.1 Absolute Neuts (auto) 13.2 H Absolute Lymphs (auto) 1.39 Total Counted Not Reportable Specimen Type Sample Site pH Bicarbonate Actual POC Total CO2 Base Excess O2 Saturation O2 % ABG pCO2 ABG pO2 Aroldo Test Respiration Rate O2 Delivery Device Minute Volume Vent Mode Tidal Volume POC PEEP EPAP IPAP Blood Gas Notified Whom Blood Gas Notified Time Sodium 139 Potassium 3.9 Chloride 105 Carbon Dioxide 22.0 Anion Gap 12 BUN 22 H Creatinine 1.67 H Estim Creat Clear Calc 44.93 Est GFR (MDRD) Af Amer 43 L Est GFR (MDRD) Non-Af 35 L BUN/Creatinine Ratio 13.2 Glucose 180 H Lactic Acid Calcium 7.5 L Phosphorus Total Creatine Kinase Troponin I Albumin Triglycerides TSH Cortisol POC Glucose 153 H Microbiology 04/28/18 07:00 Urine Catheter - Catheter Urine Culture - Preliminary Culture exhibits no growth. Clinical Impression(s) from Imaging Studies Chest X-Ray 04/27/18 16:38 IMPRESSION: Normal x-ray examination of the chest. Electronically Signed: Aysha Jimenez MD at 18:39 EDT Tel , Service support , Abdomen X-Ray 04/27/18 17:45 IMPRESSION: Mild gaseous distention of the colon, without high-grade obstruction or obvious cutoff. If there is continued clinical concern, CT of the abdomen is advised. Electronically Signed: Aysha Jimenez MD at 18:44 EDT Tel , Service support , Chest X-Ray 04/28/18 00:35 IMPRESSION: There is NO acute cardiopulmonary abnormality. The central venous catheter is in good position. There is NO visible pneumothorax. Electronically Signed: Domo Boston MD at 1:15 EDT , Service support , Chest X-Ray 04/28/18 14:36 IMPRESSION: All the support tubes are in good position. Electronically Signed: Feliz Nino MD at 15:14 EDT Tel [phone], Service support , Brain CT 04/28/18 22:35 IMPRESSION: Normal unenhanced CT scan of the brain. Electronically Signed: Domo Boston MD at 1:25 EDT , Service support , Medical Necessity - Tobacco Use Smoking Status: Never smoker Tobacco Use: Non-smoker Assessment/Plan All Active Problems (Last Reviewed 04/22/18 @ 17:51 by Sofia Wong) Rhabdomyolysis (Acute) Migraine aura, persistent (Acute) BAMBI (acute kidney injury) (Acute) Acute metabolic encephalopathy (Acute) Hypokalemia (Acute) MRSA (methicillin resistant Staphylococcus aureus) (Acute) Acute respiratory failure (Acute) ARF (acute renal failure) (Acute) Hyperosmolarity due to secondary diabetes (Acute) Depression (Acute) RECOMMENDATIONS: 1. The patient is appropriate for a trial of extubation this morning. 2. Once extubated, will initiate empiric BiPAP therapy with naps and nightly. 3. Perform bedside swallow evaluation this morning. 4. Provide with incentive spirometer and encourage use. Mobilize patient as tolerated. 5. Okay from my perspective to discontinue arterial line. 6. Given hemodynamic stability, will begin to wean stress dose steroids. 7. Given afebrile status and negative infectious workup, antibiotics can be discontinued. IMPRESSIONS: 1. Distributive shock versus overt hypothyroidism Unclear infectious source at this time. Cultures have been unrevealing to date and chest imaging has not revealed any focal infiltrate. The patient was treated initially with empiric Zosyn, which can be discontinued at this time, given negative infectious workup. The patient was, for period of time, on vasopressor support to maintain hemodynamic stability. This has been weaned at this time, in the setting of initiation of stress dose steroids. At this time, will also begin to wean the patient's hydrocortisone. Arterial line will be discontinued. Continue Synthroid as ordered. It was possible that the patient' s overt hypothyroidism may have contributed to her previous state of hemodynamic instability, with possibility that the patient had developed a borderline myxedema status. She did receive IV Synthroid initially and was placed on stress dose steroids for potential secondary adrenal insufficiency. 2. Acute hypercarbic respiratory failure The patient was intubated on April 28 after she was noted to be hypercarbic and encephalopathic. The patient failed trials of noninvasive positive pressure ventilation, which necessitated endotracheal tube placement. Since that time, the patient's gas exchange state has significantly improved. Her ventilator requirements are minimal. It is certainly possible that with the patient's hypothyroidism/myxedema state, she developed hypercarbia secondary to hypoventilation from central depression of her ventilatory drive, which was compounded by likely obstructive sleep apnea. Regardless, the patient is now alert and appropriately interactive. She passed her spontaneous breathing trial this morning and was subsequently extubated under my direct supervision. She will be placed on empiric BiPAP therapy 14/6 cm of water with naps and nightly from this point forward. 3. Acute on chronic kidney disease Improving. Suspected secondary to ischemic ATN. The patient is now actively diuresing with improvement in her creatinine. We will plan to discontinue supplemental IV fluids once the patient is tolerating p.o. intake. 4. Metabolic encephalopathy Improved. Likely multifactorial in etiology with underlying overt hypothyroidism, possible polypharmacy and hypercarbia contributing. Sedating medications are currently on hold. Hypercarbic state has improved since being started on invasive mechanical ventilation. Her underlying hypothyroidism is currently under treatment. 5. Elevated CK Possible mild rhabdo versus effects of untreated hypothyroidism. We will continue gentle IV fluid hydration with half-normal saline. The patient is able to be started on a p.o. diet today, her supplemental IV fluids will be discontinued. 6. Suspected sleep disordered breathing The patient certainly demonstrates signs and symptoms concerning for underlying obstructive sleep apnea. Upon extubation, she should be placed empirically on BiPAP with a pressure support of 14/6 cm of water. Ideally, she should have outpatient follow-up and undergo a diagnostic polysomnogram. 7. Personal history of chronic pain syndrome/diabetes/depression/hypothyroidism /morbid obesity Complicates care, management, recovery and prognosis. Continue Accu-Cheks and sliding scale insulin coverage every 6 hours for now. TIME: 35 minutes of critical care time, inclusive of procedures, was spent addressing the patient's distributive shock versus overt hypothyroidism, acute on chronic kidney disease, metabolic encephalopathy, elevated CK, suspected sleep disordered breathing, review of all data and collaboration with the care team. ( [id number]) Code Visit 9xxxx: [id number] Critical care first hour
--- NOTE | 2018-04-30 08:50 | PCM.PN.REN ---
Patient Problems: Active and Suspected Problems (Last Reviewed 04/22/18 @ 17:51 by Sofia Wong) BAMBI (acute kidney injury) (Acute) Acute metabolic encephalopathy (Acute) Subjective: off vent, on bipap responsive. Renal fxn improving. BP stable. Admits to abdominal pain. Denied narcotic use at home despite + tox screen - Physical Exam General: Alert, Oriented x3, Cooperative, No apparent distress, - - on BIPAP, morbidly obese Lungs: Diminished Abdomen: Bowel Sounds Present, Soft, Distended, Obese - super, Tender Extremities: No edema Skin: No rashes Psych/Mental Status: Normal Affect, Appropriate, Alert and oriented to time, place, person, mood and affect Vital Signs Temp Pulse Resp BP Pulse Ox 98.4 F 92 20 H 136/85 H 99 04/30/18 04:00 04/30/18 08:00 04/30/18 08:00 04/30/18 08:00 04/30/18 08:00 Oxygen Flow Rate (L/min) 2 Oxygen Delivery Method Bi-pap Weight: 170.1 kg Body Mass Index (BMI) 55.3 Intake and Output for Last 24 Hours 04/28/18 04/29/18 04/30/18 23:59 23:59 23:59 Intake Total 6965.1 / 6965.1 3491 / 3491 3027.0 / 3027.0 Output Total 7400 / 7400 5450 / 5450 400 / 400 Balance -434.9 / -434.9 -1959 / -1959 2627.0 / 2627.0 Microbiology Past 72 Hours 04/28/18 07:00 Urine Culture - Preliminary Urine Catheter - Catheter Culture exhibits no growth. Laboratory Tests Past 24 Hrs 04/28/18 04/30/18 04/30/18 15:17 04:00 04:00 WBC 14.9 H RBC 2.93 L Hgb 9.9 L Hct 29.0 L MCV 99.0 MCH 33.8 H MCHC 34.1 RDW 14.3 RDW Differential 49.7 H Plt Count 226 MPV 9.4 Immature Gran % (Auto) 0.200 Neut % (Auto) 88.5 H Lymph % (Auto) 9.3 L [place] % (Auto) 1.9 Eos % (Auto) 0.0 Baso % (Auto) 0.1 Absolute Neuts (auto) 13.2 H Absolute Lymphs (auto) 1.39 Total Counted Not Reportable Specimen Type DENIZ Sample Site L Radial pH 7.30 L Bicarbonate Actual 18.5 L POC Total CO2 20 Base Excess -8 L O2 Saturation 98 O2 % 35 ABG pCO2 37.9 ABG pO2 123 H Aroldo Test NA Respiration Rate 16 O2 Delivery Device Vent Vent Mode A-C Tidal Volume 500 POC PEEP 5 Blood Gas Notified Whom ICU Blood Gas Notified Time 1520 Sodium 139 Potassium 3.9 Chloride 105 Carbon Dioxide 22.0 Anion Gap 12 BUN 22 H Creatinine 1.67 H Estim Creat Clear Calc 44.93 Est GFR (MDRD) Af Amer 43 L Est GFR (MDRD) Non-Af 35 L BUN/Creatinine Ratio 13.2 Glucose 180 H Calcium 7.5 L POC Glucose 04/30/18 04/30/18 04/29/18 05:38 00:04 17:41 POC Glucose 153 H 168 H 170 H 04/29/18 11:01 POC Glucose 202 H Medical Necessity - Tobacco Use Smoking Status: Never smoker Tobacco Use: Non-smoker Assessment/Plan All Active Problems (Last Reviewed 04/22/18 @ 17:51 by Sofia Wong) Rhabdomyolysis (Acute) Migraine aura, persistent (Acute) BAMBI (acute kidney injury) (Acute) Acute metabolic encephalopathy (Acute) Hypokalemia (Acute) MRSA (methicillin resistant Staphylococcus aureus) (Acute) Acute respiratory failure (Acute) ARF (acute renal failure) (Acute) Hyperosmolarity due to secondary diabetes (Acute) Depression (Acute) 1. BAMBI due to ATN from , hypotension, rhabdomyolysis. Creatinine 1.6 today, baseline 1.29 in March 2018. Decrease ivf 2. Hyponatremia due to dehydration resolved 3. Hypotension resolved 4. Altered mental status resolved 5. JAZMIN, hypercapnea on BIPAP, pulm mgmt 6. Profound hypothyroidism TSH 90. Primary care mgmt 7 Morbid obesity
[2018-04-30] MEDS: 0.45% Normal Saline 1,000 ML 75 ML IV ×2 (10:05→22:47)
[2018-04-30] MEDS: Topiramate 100 MG Tablet GT (10:11)
[2018-04-30] MEDS: Venlafaxine HCl 75 MG Tablet 37.5 MG GT (10:11)
--- NOTE | 2018-04-30 10:27 | PCM.PN.HOSP ---
Patient Problems: Active and Suspected Problems (Last Reviewed 04/22/18 @ 17:51 by Sofia Wong) BAMBI (acute kidney injury) (Acute) Acute metabolic encephalopathy (Acute) Subjective: Patient seen and examined. She was extubated yesterday and is on BIPAP now. She denies any fever or chills, cough or chest pain, SOB, abdominal pain, diarrhea or vomiting. Labs and vitals reviewed. Vitals/I&O's: Vital Signs Temp Pulse Resp BP Pulse Ox 98.4 F 87 15 136/85 H 100 04/30/18 04:00 04/30/18 08:30 04/30/18 08:30 04/30/18 08:00 04/30/18 08:30 Oxygen Flow Rate (L/min) 2 Oxygen Delivery Method Bi-pap Weight: 375 lb 0.101 oz Body Mass Index (BMI) 55.3 Intake and Output for Last 24 Hours 04/28/18 04/29/18 04/30/18 23:59 23:59 23:59 Intake Total 6965.1 / 6965.1 3491 / 3491 3027.0 / 3027.0 Output Total 7400 / 7400 5450 / 5450 400 / 400 Balance -434.9 / -434.9 -1959 / -1958 2627.0 / 2627.0 General: Alert, Oriented x3, Cooperative, No apparent distress HEENT: Atraumatic, PERRLA, EOMI, Normocephalic Oral: Moist Mucosa Neck: Supple, No JVD, Negative Carotid Bruits Lungs: Clear to auscultation, Normal air movement, No rhonchi, No wheeze, No rales Cardiovascular: Regular rate, Regular Rhythm, Normal S1, Normal S2, No murmurs Abdomen: Bowel Sounds Present, Soft, Non Tender, Non-Distended, No Hepato-splenomegaly Extremities: No clubbing, No cyanosis, No edema, Capillary Refill Less than 3 Seconds Skin: No rashes, No breakdown Musculoskeletal: No Tenderness to Palpation of Joints or Extremities, No Muscle Wasting, Arthritic Changes Lymphatic: No Cervical, Supraclavicular, or Inguinal Adenopathy Neurological: Cranial nerves II-XII grossly intact, Neuro grossly intact, Motor Exam 5/5 strength throughout Psych/Mental Status: Normal Affect, Appropriate, Alert and oriented to time, place, person, mood and affect Microbiology Past 72 Hours 04/28/18 07:00 Urine Catheter - Catheter Urine Culture - Final Culture exhibits no growth. Laboratory Results 04/28/18 15:17: Specimen Type DENIZ, Sample Site L Radial, pH 7.30 L, Bicarbonate Actual 18.5 L, POC Total CO2 20, Base Excess -8 L, O2 Saturation 98, O2 % 35, ABG pCO2 37.9, ABG pO2 123 H, Aroldo Test NA, Respiration Rate 16, O2 Delivery Device Vent, Vent Mode A-C, Tidal Volume 500, POC PEEP 5, Blood Gas Notified Whom ICU , Blood Gas Notified Time 1520 04/29/18 11:01: POC Glucose 202 H 04/29/18 17:41: POC Glucose 170 H 04/30/18 00:04: POC Glucose 168 H 04/30/18 04:00: WBC 14.9 H, RBC 2.93 L, Hgb 9.9 L, Hct 29.0 L, MCV 99.0, MCH 33.8 H, MCHC 34.1, RDW 14.3, RDW Differential 49.7 H, Plt Count 226, MPV 9.4, Immature Gran % (Auto) 0.200, Neut % (Auto) 88.5 H, Lymph % (Auto) 9.3 L, Hale % (Auto) 1.9, Eos % (Auto) 0.0, Baso % (Auto) 0.1, Absolute Neuts (auto) 13.2 H, Absolute Lymphs (auto) 1.39, Total Counted Not Reportable 04/30/18 04:00: Sodium 139, Potassium 3.9, Chloride 105, Carbon Dioxide 22.0, Anion Gap 12, BUN 22 H, Creatinine 1.67 H, Estim Creat Clear Calc 44.93, Est GFR (MDRD) Af Amer 43 L, Est GFR (MDRD) Non-Af 35 L, BUN/Creatinine Ratio 13.2, Glucose 180 H, Calcium 7.5 L 04/30/18 05:38: POC Glucose 153 H Current Medications Acetaminophen (Tylenol Liquid) 650 mg GT Q6H PRN PRN PRN Reason: Non-cardiac pain (mod-severe) Al Hydroxide/Mg Hydroxide (Mylanta Ii) 30 ml GT Q6H PRN PRN PRN Reason: Gastric burning Chlorhexidine Gluconate () 1 each TOPICAL DAILY [facility] Last Admin: 04/30/18 05:42 Dose: 1 each Chlorhexidine Gluconate () 15 ml PO BID [facility] Last Admin: 04/30/18 10:14 Dose: Not Given Heparin Sodium (Porcine) (Heparin Na) 5,000 unit SC Q8 [facility] Last Admin: 04/30/18 05:41 Dose: 5,000 unit Hydrocortisone Sodium Succinate (Solu-Cortef) 50 mg IV Q12 [facility] Last Admin: 04/30/18 10:11 Dose: 50 mg Sodium Chloride () 1,000 mls @ 75 mls/hr IV .[id number] [facility] Last Admin: 04/30/18 10:05 Dose: 75 mls/hr Insulin Human Lispro (Humalog Kwikpen (Bkc)) 0 unit SC Q6 [facility] PRN Reason: Protocol Last Admin: 04/30/18 05:40 Dose: 1 units Levothyroxine Sodium (Synthroid) 274 mcg GT DAILY@0600 [facility] Last Admin: 04/30/18 05:40 Dose: 274 mcg Magnesium Hydroxide (Milk Of Magnesia) 30 ml GT DAILY PRN PRN PRN Reason: Constipation Ondansetron HCl (Zofran) 4 mg IV Q8H PRN PRN PRN Reason: NAUSEA Promethazine HCl (Phenergan) 12.5 mg IV Q6H PRN PRN PRN Reason: NAUSEA/VOMITING Sodium Chloride () 5 - 30 ml IV UD PRN PRN Reason: SALINE FLUSH Last Admin: 04/30/18 05:41 Dose: 20 ml Topiramate (Topamax) 100 mg GT BID [facility] Last Admin: 04/30/18 10:11 Dose: 100 mg Venlafaxine HCl (Effexor) 37.5 mg GT 4X/DAY [facility] Last Admin: 04/30/18 10:11 Dose: 37.5 mg Medical Necessity - Tobacco Use Smoking Status: Never smoker Tobacco Use: Non-smoker Assessment/Plan All Active Problems (Last Reviewed 04/22/18 @ 17:51 by Sofia Wong) Rhabdomyolysis (Acute) Migraine aura, persistent (Acute) BAMBI (acute kidney injury) (Acute) Acute metabolic encephalopathy (Acute) Hypokalemia (Acute) MRSA (methicillin resistant Staphylococcus aureus) (Acute) Acute respiratory failure (Acute) ARF (acute renal failure) (Acute) Hyperosmolarity due to secondary diabetes (Acute) Depression (Acute) 1. Acute anion gap metabolic acidosis due to uremia resolved. bicarb up to 22 will monitor 2. Acute metabolic encephalopathy due to uremia and hypothyroidism resolving. Extubated yesterday. now on BIPAP will monitor uremia has also resolved. 3. Acute hypercarbic respiratory failure due to acute metabolic encephalopathy now extubated. Off BIPAP. will monitor. 4. Distributive shock vs severe hyothyroidism resolved. Now off pressors. continue IVF continue stress dose of steroids 5. Acute hyponatremia Resolved. Sodium is 139 Will monitor. 6. BAMBI likely pre-renal due to ATN Resolving. Cr now down to 1.67 nephrology on board. Continue IVF for hydration 7.Severe hypothyroidism due to noncompliance Patient noncompliant with her Synthroid. TSH was 160 on admission and was 90 on repeat. Free TSH was 0.19. was started on IV synthroid; now on SYnthroid 274mcg via NG tube daily 8. Rhabdomyolysis resolving. CPK trended down significantly. continue IVF and monitor 9. Sepsis- source of infection is not clear SIRS criteria- now 0/5 urine culture negative blood cultures pending on IV zosyn. 8. Migraine headache: on topamax. Hold off on NSAIDs due to severe BAMBI 9. Hypertension: now off pressors and IVF. Hypotension has resolved. BP meds all still on hold. will monitor BP and resume as needed 10. Anxiety, depression and bipolar disorder: On Effexor 75 mg twice daily. Total daily dose reduced by 50% due to renal function. 11. Chronic pain syndrome: on chronic narcotic therapy. Utox was positive for opiates. DVT prophylaxis: heparin Code status: full code This note was generated with [employer] software. It may contain incorrect words, spelling, and punctuation that were not noted in checking the note before signing. Code Visit Inpatient E&M: 42738 Subs Hosp L3
--- NOTE | 2018-04-30 10:33 | PN_ITS ---
Patient Problems: Active and Suspected Problems (Last Reviewed 04/22/18 @ 17:51 by Sofia Wong) BAMBI (acute kidney injury) (Acute) Acute metabolic encephalopathy (Acute) Subjective: Patient seen and examined. She was extubated yesterday and is on BIPAP now. She denies any fever or chills, cough or chest pain, SOB, abdominal pain, diarrhea or vomiting. Labs and vitals reviewed. Vitals/I&O's: Vital Signs Temp Pulse Resp BP Pulse Ox 98.4 F 87 15 136/85 H 100 04/30/18 04:00 04/30/18 08:30 04/30/18 08:30 04/30/18 08:00 04/30/18 08:30 Oxygen Flow Rate (L/min) 2 Oxygen Delivery Method Bi-pap Weight: 375 lb 0.101 oz Body Mass Index (BMI) 55.3 Intake and Output for Last 24 Hours 04/28/18 04/29/18 04/30/18 23:59 23:59 23:59 Intake Total 6965.1 / 6965.1 3491 / 3491 3027.0 / 3027.0 Output Total 7400 / 7400 5450 / 5450 400 / 400 Balance -434.9 / -434.9 -1959 / -1958 2627.0 / 2627.0 General: Alert, Oriented x3, Cooperative, No apparent distress HEENT: Atraumatic, PERRLA, EOMI, Normocephalic Oral: Moist Mucosa Neck: Supple, No JVD, Negative Carotid Bruits Lungs: Clear to auscultation, Normal air movement, No rhonchi, No wheeze, No rales Cardiovascular: Regular rate, Regular Rhythm, Normal S1, Normal S2, No murmurs Abdomen: Bowel Sounds Present, Soft, Non Tender, Non-Distended, No Hepato- splenomegaly Extremities: No clubbing, No cyanosis, No edema, Capillary Refill Less than 3 Seconds Skin: No rashes, No breakdown Musculoskeletal: No Tenderness to Palpation of Joints or Extremities, No Muscle Wasting, Arthritic Changes Lymphatic: No Cervical, Supraclavicular, or Inguinal Adenopathy Neurological: Cranial nerves II-XII grossly intact, Neuro grossly intact, Motor Exam 5/5 strength throughout Psych/Mental Status: Normal Affect, Appropriate, Alert and oriented to time, place, person, mood and affect Microbiology Past 72 Hours 04/28/18 07:00 Urine Catheter - Catheter Urine Culture - Final Culture exhibits no growth. Laboratory Results 04/28/18 15:17: Specimen Type DENIZ, Sample Site L Radial, pH 7.30 L, Bicarbonate Actual 18.5 L, POC Total CO2 20, Base Excess -8 L, O2 Saturation 98 , O2 % 35, ABG pCO2 37.9, ABG pO2 123 H, Aroldo Test NA, Respiration Rate 16, O2 Delivery Device Vent, Vent Mode A-C, Tidal Volume 500, POC PEEP 5, Blood Gas Notified Whom ICU , Blood Gas Notified Time 1520 04/29/18 11:01: POC Glucose 202 H 04/29/18 17:41: POC Glucose 170 H 04/30/18 00:04: POC Glucose 168 H 04/30/18 04:00: WBC 14.9 H, RBC 2.93 L, Hgb 9.9 L, Hct 29.0 L, MCV 99.0, MCH 33.8 H, MCHC 34.1, RDW 14.3, RDW Differential 49.7 H, Plt Count 226, MPV 9.4, Immature Gran % (Auto) 0.200, Neut % (Auto) 88.5 H, Lymph % (Auto) 9.3 L, [place] % (Auto) 1.9, Eos % (Auto) 0.0, Baso % (Auto) 0.1, Absolute Neuts (auto) 13.2 H , Absolute Lymphs (auto) 1.39, Total Counted Not Reportable 04/30/18 04:00: Sodium 139, Potassium 3.9, Chloride 105, Carbon Dioxide 22.0, Anion Gap 12, BUN 22 H, Creatinine 1.67 H, Estim Creat Clear Calc 44.93, Est GFR (MDRD) Af Amer 43 L, Est GFR (MDRD) Non-Af 35 L, BUN/Creatinine Ratio 13.2, Glucose 180 H, Calcium 7.5 L 04/30/18 05:38: POC Glucose 153 H Current Medications Acetaminophen (Tylenol Liquid) 650 mg GT Q6H PRN PRN PRN Reason: Non-cardiac pain (mod-severe) Al Hydroxide/Mg Hydroxide (Mylanta Ii) 30 ml GT Q6H PRN PRN PRN Reason: Gastric burning Chlorhexidine Gluconate () 1 each TOPICAL DAILY [facility] Last Admin: 04/30/18 05:42 Dose: 1 each Chlorhexidine Gluconate () 15 ml PO BID [facility] Last Admin: 04/30/18 10:14 Dose: Not Given Heparin Sodium (Porcine) (Heparin Na) 5,000 unit SC Q8 [facility] Last Admin: 04/30/18 05:41 Dose: 5,000 unit Hydrocortisone Sodium Succinate (Solu-Cortef) 50 mg IV Q12 [facility] Last Admin: 04/30/18 10:11 Dose: 50 mg Sodium Chloride () 1,000 mls @ 75 mls/hr IV .[id number] [facility] Last Admin: 04/30/18 10:05 Dose: 75 mls/hr Insulin Human Lispro (Humalog Kwikpen (Bkc)) 0 unit SC Q6 [facility] PRN Reason: Protocol Last Admin: 04/30/18 05:40 Dose: 1 units Levothyroxine Sodium (Synthroid) 274 mcg GT DAILY@0600 [facility] Last Admin: 04/30/18 05:40 Dose: 274 mcg Magnesium Hydroxide (Milk Of Magnesia) 30 ml GT DAILY PRN PRN PRN Reason: Constipation Ondansetron HCl (Zofran) 4 mg IV Q8H PRN PRN PRN Reason: NAUSEA Promethazine HCl (Phenergan) 12.5 mg IV Q6H PRN PRN PRN Reason: NAUSEA/VOMITING Sodium Chloride () 5 - 30 ml IV UD PRN PRN Reason: SALINE FLUSH Last Admin: 04/30/18 05:41 Dose: 20 ml Topiramate (Topamax) 100 mg GT BID [facility] Last Admin: 04/30/18 10:11 Dose: 100 mg Venlafaxine HCl (Effexor) 37.5 mg GT 4X/DAY [facility] Last Admin: 04/30/18 10:11 Dose: 37.5 mg Medical Necessity - Tobacco Use Smoking Status: Never smoker Tobacco Use: Non-smoker Assessment/Plan All Active Problems (Last Reviewed 04/22/18 @ 17:51 by Sofia Wong) Rhabdomyolysis (Acute) Migraine aura, persistent (Acute) BAMBI (acute kidney injury) (Acute) Acute metabolic encephalopathy (Acute) Hypokalemia (Acute) MRSA (methicillin resistant Staphylococcus aureus) (Acute) Acute respiratory failure (Acute) ARF (acute renal failure) (Acute) Hyperosmolarity due to secondary diabetes (Acute) Depression (Acute) 1. Acute anion gap metabolic acidosis due to uremia * resolved. * bicarb up to 22 * will monitor * * 2. Acute metabolic encephalopathy due to uremia and hypothyroidism * resolving. Extubated yesterday. * now on BIPAP * will monitor * uremia has also resolved. * * * 3. Acute hypercarbic respiratory failure due to acute metabolic encephalopathy * now extubated. Off BIPAP. * will monitor. * 4. Distributive shock vs severe hyothyroidism * resolved. Now off pressors. continue IVF * continue stress dose of steroids * * 5. Acute hyponatremia * Resolved. Sodium is 139 * Will monitor. * 6. BAMBI likely pre-renal due to ATN * Resolving. Cr now down to 1.67 * nephrology on board. Continue IVF for hydration * 7.Severe hypothyroidism due to noncompliance * Patient noncompliant with her Synthroid. * TSH was 160 on admission and was 90 on repeat. Free TSH was 0.19. * was started on IV synthroid; now on SYnthroid 274mcg via NG tube daily * 8. Rhabdomyolysis * resolving. CPK trended down significantly. * continue IVF and monitor * * 9. Sepsis- source of infection is not clear * SIRS criteria- now 0/5 * urine culture negative * blood cultures pending * on IV zosyn. * * 8. Migraine headache: on topamax. Hold off on NSAIDs due to severe BAMBI 9. Hypertension: * now off pressors and IVF. Hypotension has resolved. * BP meds all still on hold. will monitor BP and resume as needed * * 10. Anxiety, depression and bipolar disorder: On Effexor 75 mg twice daily. Total daily dose reduced by 50% due to renal function. 11. Chronic pain syndrome: on chronic narcotic therapy. Utox was positive for opiates. DVT prophylaxis: heparin Code status: full code This note was generated with [employer] software. It may contain incorrect words, spelling, and punctuation that were not noted in checking the note before signing. Code Visit Inpatient E&M: 98834 Subs Hosp L3
--- NOTE | 2018-04-30 11:57 | CASEMGMT ---
Addendum entered by Flakita Felton 05/01/18 09:46: SW did also ask pt about mental health when speaking w/her yesterday. Pt states she does have depression and anxiety. Dr. Hand prescribes medications for this, pt states she has been on the same medications for years. Pt is not interested in any counseling at this time, states she does not have time for this. SW also did ask pt if she sees a doctor for diabetes, pt states that her PCP prescribes all of her diabetic medication and assists her in managing her diabetes. SARITA Magdaleno, VOICE AND DATA TECHNICIAN Original Note: See assessment. SW spoke w/pt in room regarding prior level of function and discharge plan. Pt lives w/significant other Ar, pt states is independent at home. Pt has no history of home health or SNF. Pt plans to return home, declined SNF or home health referrals at this time. SW asked pt about POA, pt states that Olvin(her son) and Ar have made good decisions so far. Pt not ready to complete forms at this time, declined SW assist either now or after discharge to complete the forms. SW did explain if decisions needed made it would be her son and daughter to make the decisions. Pt did speak w/SW about getting a Yuliana Unit to check her blood sugar, states the doctor's office tried to get this but it was denied due to the wrong code. Pt states if it had the right code the insurance said it may be approved. Pt explains with this unit she would not need to prick her finger to check her blood sugar. Pt reports has all needed diabetic supplies and meds for home. SW encouraged pt to follow up w/her PCP again in regard to the Yuliana unit, to see if they can try again to get this unit approved. Pt also talked about not being put back on Synthroid when she left here in January. SW encouraged her to make sure to see her PCP shortly after leaving the hospital to review all meds. Pt states she did do this the last time. No further needs are anticipated, SW is available however should any needs arise. Pt plans to return home, declining referrals for SNF or home health at this time. SARITA Magdaleno, VOICE AND DATA TECHNICIAN
[2018-04-30 12:35] LABS: Bedside Glucose 141 mg/dL (70-110)
[2018-04-30] MEDS: Venlafaxine HCl 75 MG Tablet 37.5 MG PO ×3 (13:14→21:43)
--- NOTE | 2018-04-30 14:21 | CASEMGMT ---
AMA called [employer] to check on getting a Yuliana meter. As per [facility], it needs a prior auth with diagnosis code and chart notes why she would need it, and to fax it to [phone]. CM left message for Dr. Hand's requesting they follow up on attaining a priror authorization for this. SARITA Magdaleno, ASSISTANT KITCHEN MANAGER
[2018-04-30 17:21] LABS: Bedside Glucose 173 mg/dL (70-110)
[2018-04-30] MEDS: Topiramate 100 MG Tablet PO (21:43)
[2018-04-30 21:51] LABS: Bedside Glucose 95 mg/dL (70-110)
[2018-05-01] VITALS: PULSE 88
[2018-05-01 02:38] VITALS: BP 138/82; PULSE 84; RESP 16; TEMP 36.8; O2SAT 96
--- NOTE | 2018-05-01 02:42 | NURSING ---
bipap mask placed on pt X2 this shift. When rounding on pt, bipap mask is laying on bedside table and machine is alarming.
[2018-05-01 04:00] VITALS: PULSE 85
[2018-05-01] MEDS: Levothyroxine 137 MCG Tablet 274 MCG PO (06:22)
[2018-05-01 06:31] LABS: Bedside Glucose 125 mg/dL (70-110)
[2018-05-01] MEDS: 0.9% NaCl Peripheral Flush Adult/Peds IV ×2 (06:51→10:30)
[2018-05-01 07:06] LABS: Absolute Lymphocyte Count 3.57 X10^3/ul (0.83-4.51); Absolute Neutrophil Count 9.7 X10^3/uL (2.0-7.7); Basophil# 0.03 X10^3/uL; Basophil% 0.2 % (0-1); Eosinophil# 0.03 X10^3/uL; Eosinophils% 0.2 % (0-5); Hematocrit 31.4 % (37-47); Hemoglobin 10.6 g/dl (12.0-15.0); Lymphocyte # 3.57 X10^3/ul (4.0); Lymphocyte % 25.9 % (19-41); Mean Corp Hgb Conc 33.8 g/gl (32-36); Mean Corpuscular Hgb 32.8 pg (27.0-32.0); Mean Corpuscular Volume 97.2 fL (81-99); Mean Platelet Vol. 9.2 fl (6.2-12.0); Monocyte# 0.47 X10^3/uL; Monocyte% 3.4 % (0-10); Neutrophil # 9.67 X10^3/uL (2.7-7.7); Neutrophil % 70.1 % (47-70); Platelet Count 243 K/mm3 (150-450); RBC Distribution Width CV 14.3 % (11.6-14.6); RBC Distribution Width SD 51.4 fl (35.1-43.9); Red Blood Count 3.23 M/mm3 (4.2-5.4); White Blood Count 13.8 K/mm3 (4.4-11.0)
[2018-05-01 07:10] LABS: POSITIVE COUNT NO; POSITIVE DIFFERENTIAL NO; POSITIVE MORPHOLOGY NO
[2018-05-01 07:25] VITALS: O2SAT 98
[2018-05-01 07:28] LABS: Anion Gap 11 (5-15); BUN 22 mg/dL (7-18); BUN/Creat Ratio 15.2 RATIO (10-20); Calcium,Total 7.5 mg/dL (8.5-10.1); Chloride 107 mmol/L (98-107); Creatinine, Serum 1.45 mg/dL (0.55-1.02); EST Glomerular Filtration Rate 42 mL/min (>60); Est Glom Filt Rate - Afr Amer 50 mL/min (>60); Estimated Creatinine Clearance 51.74 ml/min; Glucose 117 mg/dL (74-106); Potassium 3.7 mmol/L (3.5-5.1); Sodium Level 140 mmol/L (136-145)
[2018-05-01 07:40] VITALS: BP 130/69; PULSE 80; RESP 16; TEMP 36.8; O2SAT 100
--- NOTE | 2018-05-01 08:51 | PCM.PROGNOTE ---
Patient Problems: Active and Suspected Problems (Last Reviewed 04/22/18 @ 17:51 by Sofia Wong) BAMBI (acute kidney injury) (Acute) Acute metabolic encephalopathy (Acute) Subjective: The patient was seen and examined at the bedside this morning. Events from the last 24 hours have been reviewed. The patient is currently afebrile, hemodynamically stable and maintaining appropriate oxygen saturations on room air. The patient reportedly removed her BiPAP mask several times overnight. The patient reports no issues this morning. Objective: The patient's most recent lab work, culture data and imaging studies have all been personally reviewed. Blood and urine cultures have shown no growth to date. Surface echocardiogram revealed normal LV size and thickness with an ejection fraction of 75%. There was evidence of possible RV apical strain with a right ventricular systolic pressure estimated to be 24 mmHg. - Physical Exam General: Alert, Cooperative, No apparent distress HEENT: Atraumatic, PERRLA, Normocephalic Oral: No Gingival or Mucosal Lesions/ Ulcerations Neck: Supple, No Nodes, Trachea Midline, - - Large neck circumference with redundant soft tissue. Lungs: No rhonchi, No wheeze, No rales, Diminished Cardiovascular: Regular rate, Regular Rhythm, Normal S1, Normal S2, No murmurs Abdomen: Bowel Sounds Present, Soft, Non Tender, Obese Extremities: No clubbing, No cyanosis, No edema Skin: - - No significant change from previous. Musculoskeletal: No Tenderness to Palpation of Joints or Extremities, No Muscle Wasting Lymphatic: No Cervical, Supraclavicular, or Inguinal Adenopathy Neurological: Cranial nerves II-XII grossly intact, Neuro grossly intact Psych/Mental Status: Normal Affect, Appropriate Vital Signs Temp Pulse Resp BP Pulse Ox 98.3 F 80 16 130/69 H 100 05/01/18 07:40 05/01/18 07:40 05/01/18 07:40 05/01/18 07:40 05/01/18 07:40 Oxygen Flow Rate (L/min) 2 Oxygen Delivery Method Room Air Weight: 375 lb 0.101 oz Body Mass Index (BMI) 55.3 Intake and Output for Last 24 Hours 04/29/18 04/30/18 05/01/18 23:59 23:59 23:59 Intake Total 3491 / 3491 4359.0 / 4359.0 1705 / 1705 Output Total 5450 / 5450 600 / 600 900 / 900 Balance -1959 / -195 3759.0 / 3759.0 805 / 805 Microbiology Past 72 Hours 04/28/18 07:00 Urine Culture - Final Urine Catheter - Catheter Culture exhibits no growth. Laboratory Tests Past 24 Hrs 05/01/18 05/01/18 06:50 06:50 WBC 13.8 H RBC 3.23 L Hgb 10.6 L Hct 31.4 L MCV 97.2 MCH 32.8 H MCHC 33.8 RDW 14.3 RDW Differential 51.4 H Plt Count 243 MPV 9.2 Immature Gran % (Auto) 0.200 Neut % (Auto) 70.1 H Lymph % (Auto) 25.9 [place] % (Auto) 3.4 Eos % (Auto) 0.2 Baso % (Auto) 0.2 Absolute Neuts (auto) 9.7 H Absolute Lymphs (auto) 3.57 Total Counted Not Reportable Sodium 140 Potassium 3.7 Chloride 107 Carbon Dioxide 22.0 Anion Gap 11 BUN 22 H Creatinine 1.45 H Estim Creat Clear Calc 51.74 Est GFR (MDRD) Af Amer 50 L Est GFR (MDRD) Non-Af 42 L BUN/Creatinine Ratio 15.2 Glucose 117 H Calcium 7.5 L POC Glucose 05/01/18 04/30/18 04/30/18 06:25 21:38 17:04 POC Glucose 125 H 95 173 H 04/30/18 12:27 POC Glucose 141 H Clinical Impression(s) from Imaging Studies Chest X-Ray 04/27/18 16:38 IMPRESSION: Normal x-ray examination of the chest. Electronically Signed: Aysha Jimenez MD at 18:39 EDT Tel , Service support , Abdomen X-Ray 04/27/18 17:45 IMPRESSION: Mild gaseous distention of the colon, without high-grade obstruction or obvious cutoff. If there is continued clinical concern, CT of the abdomen is advised. Electronically Signed: Aysha Jimenez MD at 18:44 EDT Tel , Service support , Chest X-Ray 04/28/18 00:35 IMPRESSION: There is NO acute cardiopulmonary abnormality. The central venous catheter is in good position. There is NO visible pneumothorax. Electronically Signed: Domo Boston MD at 1:15 EDT , Service support , Chest X-Ray 04/28/18 14:36 IMPRESSION: All the support tubes are in good position. Electronically Signed: Feliz Nino MD at 15:14 EDT Tel [phone], Service support , Brain CT 04/28/18 22:35 IMPRESSION: Normal unenhanced CT scan of the brain. Electronically Signed: Domo Boston MD at 1:25 EDT , Service support , Medical Necessity - Tobacco Use Smoking Status: Never smoker Tobacco Use: Non-smoker Assessment/Plan All Active Problems (Last Reviewed 04/22/18 @ 17:51 by Sofia Wong) Rhabdomyolysis (Acute) Migraine aura, persistent (Acute) BAMBI (acute kidney injury) (Acute) Acute metabolic encephalopathy (Acute) Hypokalemia (Acute) MRSA (methicillin resistant Staphylococcus aureus) (Acute) Acute respiratory failure (Acute) ARF (acute renal failure) (Acute) Hyperosmolarity due to secondary diabetes (Acute) Depression (Acute) RECOMMENDATIONS: 1. Continue to encourage incentive spirometer use and mobilize patient as tolerated. 2. Wean stress dose steroids to 50 mg once daily. 3. Perform walking oximetry study prior to consideration for discharge from the hospital. 4. Continue Synthroid as ordered. 5. Would recommend outpatient pulmonary follow-up and dedicated polysomnogram, given high clinical index of suspicion for underlying sleep disordered breathing. IMPRESSIONS: 1. Distributive shock versus overt hypothyroidism Unclear infectious source at this time. Cultures have been unrevealing to date and chest imaging has not revealed any focal infiltrate. The patient was treated initially with empiric Zosyn, which can be discontinued at this time, given negative infectious workup. The patient was, for period of time, on vasopressor support to maintain hemodynamic stability. This has been weaned at this time, in the setting of initiation of stress dose steroids. We will continue to wean stress dose steroids accordingly. Continue Synthroid as ordered. It was possible that the patient's overt hypothyroidism may have contributed to her previous state of hemodynamic instability, with possibility that the patient had developed a borderline myxedema status. She did receive IV Synthroid initially and was placed on stress dose steroids for potential secondary adrenal insufficiency. 2. Acute hypercarbic respiratory failure The patient was intubated on April 28 after she was noted to be hypercarbic and encephalopathic. The patient failed trials of noninvasive positive pressure ventilation, which necessitated endotracheal tube placement. She was able to be successfully liberated from mechanical ventilation and has been maintaining appropriate oxygen saturations on room air. It is certainly possible that with the patient's hypothyroidism/myxedema state, she developed hypercarbia secondary to hypoventilation from central depression of her ventilatory drive, which was compounded by likely obstructive sleep apnea. Regardless, the patient is now alert and appropriately interactive. Recommend continuing empiric BiPAP therapy with naps and nightly. 3. Acute on chronic kidney disease Improving. Suspected secondary to ischemic ATN. The patient is now actively diuresing with improvement in her creatinine. 4. Metabolic encephalopathy Improved. Likely multifactorial in etiology with underlying overt hypothyroidism, possible polypharmacy and hypercarbia contributing. Sedating medications are currently on hold. Hypercarbic state improved with ventilatory support. Her underlying hypothyroidism is currently under treatment. 5. Suspected sleep disordered breathing The patient certainly demonstrates signs and symptoms concerning for underlying obstructive sleep apnea. Upon extubation, she should be placed empirically on BiPAP with a pressure support of 14/6 cm of water. Ideally, she should have outpatient follow-up and undergo a diagnostic polysomnogram. 6. Personal history of chronic pain syndrome/diabetes/depression/hypothyroidism/morbid obesity Complicates care, management, recovery and prognosis. Continue Accu-Cheks and sliding scale insulin coverage. This note was generated with [employer] dictation software. It may contain incorrect words, spelling, and punctuation that were not noted in checking the note before signing. DISPOSITION: Given the lack of ongoing ICU needs, will sign off. Please call with any additional questions. Code Visit Inpatient E&M: 78727 Subs Hosp L2
[2018-05-01] MEDS: Venlafaxine HCl 75 MG Tablet 37.5 MG PO (10:31)
[2018-05-01] MEDS: Topiramate 100 MG Tablet PO (10:31)
[2018-05-01] MEDS: Hydrocortisone Sod Succinate 100 MG/2 ML Vial 50 MG IV (10:31)
--- NOTE | 2018-05-01 10:40 | NURSING ---
pt refused breakfast- bgt at this time 65- oj given
--- NOTE | 2018-05-01 10:42 | NURSING ---
pt urinating well after removal of zhong catheter this AM at 0530
[2018-05-01 10:45] LABS: Bedside Glucose 65 mg/dL (70-110)
--- NOTE | 2018-05-01 11:12 | PCM.DC ---
- Discharge Diagnoses Current Active Problems: Current Active and Chronic Problems (Last Reviewed 04/22/18 @ 17:51 by Sofia Wong) BAMBI (acute kidney injury) (Acute) Acute metabolic encephalopathy (Acute) You will use the following diet at home:: Cardiac Your food should be the consistency of: Regular Your liquids should be the consistency of: Regular/Thin Discharge Activity: Return to Normal Activity Weight Bearing Status: Weight bearing as tolerated Call your doctor if you observe: Fever of 101 or Higher, Shortness of breath, Dizziness, Increased palpitations (irregular heartbeat) Instructions: Discharge Instructions for Hypothyroidism and Myxedema Allergies/Adverse Reactions: Allergies hydroxyzine [From Atarax] Allergy (Verified 04/27/18 09:55) Hives Sulfa (Sulfonamide Antibiotics) Allergy (Verified 04/27/18 09:55) Hives raspberry Adverse Reaction (Verified 04/27/18 09:55) Other migarine Medications to take at Discharge Omeprazole [Prilosec] 40 mg PO DAILY 10/16/15 lidocaine 5 % topical ointment 1 applic TOPICAL BID-QID PRN 10/15/17 oxybutynin chloride 5 mg tablet 5 mg PO TID 10/15/17 Tizanidine HCl [Zanaflex] 4 mg PO TID 01/18/18 glimepiride 2 mg tablet 2 mg PO QAM #90 tab 02/19/18 hydrochlorothiazide 12.5 mg capsule 12.5 mg PO QAM #90 cap 02/19/18 amitriptyline 75 mg tablet 75 mg PO QHS #60 tab 04/06/18 venlafaxine ER 150 mg capsule,extended release 24 hr 150 mg PO BID cap 04/06/18 Atorvastatin Calcium [Lipitor] 40 mg PO QHS 04/27/18 Blood Sugar Diagnostic [Assure Prism Multi] 0 x .ROUTE .MEDSUPPLY 04/27/18 Cider Vinegar [Apple Cider Vinegar] 300 mg PO DAILY 04/27/18 Flash Glucose Scanning [place] [Freestyle Yuliana [place]] 0 x .ROUTE .MEDSUPPLY 04/27/18 Lancets 0 x .ROUTE .MEDSUPPLY 04/27/18 Multivit-Min/Iron/Folic/Lutein [Centrum Silver Women Tablet] 1 tab PO DAILY 04/27/18 Levothyroxine [Synthroid] 274 mcg PO DAILY@0600 #60 tab 05/01/18 Topiramate [Topamax] 100 mg PO BID tablet 05/01/18 The following prescriptions were given: Levothyroxine [Synthroid] 274 mcg PO DAILY@0600 #60 tab Primary Care Physician: Megha Hand MD [Primary Care Provider] - Please follow up with your Primary Care Physician in: 1 week Test Results: Test results from this visit will be discussed in further detail at your follow-up appointment, if applicable. Please Follow Up With: Tangela Garcia DO When: 1-2 weeks Proposed Discharge Date: 05/01/18
--- NOTE | 2018-05-01 11:15 | DS.PCM_ITS ---
Discharge Date and Diagnosis Date of Admission: 04/27/18 Date of Discharge: 05/01/18 - Primary Discharge Diagnosis Active and Suspected Problems (Last Reviewed 04/22/18 @ 17:51 by Sofia Wong) BAMBI (acute kidney injury) (Acute) Acute metabolic encephalopathy (Acute) acute hypoxic respiratory failure rhabdomyolysis severe uncontrolled hypothyroidism - Secondary Discharge Diagnosis Chronic Problems (Last Reviewed 04/22/18 @ 17:51 by Sofia Wong) Morbid obesity (Chronic) Chronic pain syndrome (Chronic) Urinary retention with incomplete bladder emptying (Chronic) Insomnia (Chronic) Seasonal allergies (Chronic) Anxiety and depression (Chronic) Back problem (Chronic) Carpal tunnel syndrome (Chronic) Diabetes type 2, uncontrolled (Chronic) Frequent headaches (Chronic) HTN (hypertension) (Chronic) Fatty liver (Chronic) GERD (gastroesophageal reflux disease) (Chronic) Thyroid disease (Chronic) Fibromyalgia (Chronic) Diabetes mellitus (Chronic) Discussed with patient need to check BG consistently and routinely. Showed her how to check correctly along side of finger and how to improve chances of getting blood sample on low dial. She may be a candidate for [facility], depending on insurance. We discussed importance of routine care and following medication plan. Her level of anxiety significantly reduce by end of appointment. Instructed to check BG in pairs over the next several days . Will obtain medical records Hospital Course and Treatment Imaging Results: Diagnostic Data Abdomen X-Ray 04/27/18 17:45 IMPRESSION: Mild gaseous distention of the colon, without high-grade obstruction or obvious cutoff. If there is continued clinical concern, CT of the abdomen is advised. Electronically Signed: Aysha Jimenez MD at 18:44 EDT Tel , Service support , Chest X-Ray 04/28/18 14:36 IMPRESSION: All the support tubes are in good position. Electronically Signed: Feliz Nino MD at 15:14 EDT Tel [phone], Service support , Brain CT 04/28/18 22:35 IMPRESSION: Normal unenhanced CT scan of the brain. Electronically Signed: Domo Boston MD at 1:25 EDT , Service support , Laboratory Tests 04/27/18 04/27/18 04/27/18 11:30 11:30 11:30 WBC RBC Hgb Hct MCV MCH MCHC RDW RDW Differential Plt Count MPV Immature Gran % (Auto) Neut % (Auto) Lymph % (Auto) [place] % (Auto) Eos % (Auto) Baso % (Auto) Absolute Neuts (auto) Absolute Lymphs (auto) Total Counted Specimen Type Sample Site pH Bicarbonate Actual POC Total CO2 Base Excess O2 Saturation O2 % ABG pCO2 ABG pO2 Aroldo Test Respiration Rate O2 Delivery Device Minute Volume Vent Mode Tidal Volume POC PEEP EPAP IPAP Blood Gas Notified Whom Blood Gas Notified Time Sodium Potassium Chloride Carbon Dioxide Anion Gap BUN Creatinine Estim Creat Clear Calc Est GFR (MDRD) Af Amer Est GFR (MDRD) Non-Af BUN/Creatinine Ratio Glucose Lactic Acid Calcium Phosphorus Magnesium Total Bilirubin Direct Bilirubin AST ALT Alkaline Phosphatase Total Creatine Kinase Troponin I Total Protein Albumin Globulin Albumin/Globulin Ratio Triglycerides Lipase TSH Free T4 Cortisol Urine Color Yellow Urine Clarity Sl. Cloudy Urine pH 6.0 Ur Specific [place] 1.010 Urine Protein 15 H Urine Glucose (UA) 50 H Urine Ketones Negative Urine Occult Blood Negative Urine Nitrite Negative Urine Bilirubin Negative Urine Urobilinogen Normal Ur Leukocyte Esterase Negative Urine RBC 0 SEEN Urine WBC 0 SEEN Ur Squamous Epith Cells 0-5 SEEN Urine Bacteria 1+ Urine Mucus 0 SEEN Urine Osmolality 180 Ur Random Sodium Urine Creatinine Urine Opiates Screen POSITIVE H Urine Methadone Screen NEGATIVE Ur Barbiturates Screen NEGATIVE Ur Phencyclidine Scrn NEGATIVE Ur Amphetamines Screen NEGATIVE U Methamphetamin-MDMA NEGATIVE U Benzodiazepines Scrn NEGATIVE Urine Cocaine Screen NEGATIVE U Cannabinoids Screen NEGATIVE Ur Drug Screen Comment MRSA (PCR) POC Glucose 04/27/18 04/27/18 04/27/18 11:30 11:45 11:45 WBC 18.9 H RBC 3.67 L Hgb 12.1 Hct 36.9 L MCV 100.5 H MCH 33.0 H MCHC 32.8 RDW 14.2 RDW Differential 52.4 H Plt Count 272 MPV 10.0 Immature Gran % (Auto) 0.600 Neut % (Auto) 77.5 H Lymph % (Auto) 16.0 L [place] % (Auto) 3.4 Eos % (Auto) 2.2 Baso % (Auto) 0.3 Absolute Neuts (auto) 14.7 H Absolute Lymphs (auto) 3.05 Total Counted Not Reportable Specimen Type Sample Site pH Bicarbonate Actual POC Total CO2 Base Excess O2 Saturation O2 % ABG pCO2 ABG pO2 Aroldo Test Respiration Rate O2 Delivery Device Minute Volume Vent Mode Tidal Volume POC PEEP EPAP IPAP Blood Gas Notified Whom Blood Gas Notified Time Sodium 128 L Potassium 4.0 Chloride 94 L Carbon Dioxide 19.0 L Anion Gap 15 BUN 24 H Creatinine 3.94 H Estim Creat Clear Calc 19.70 Est GFR (MDRD) Af Amer 16 L Est GFR (MDRD) Non-Af 13 L BUN/Creatinine Ratio 6.1 L Glucose 189 H Lactic Acid Calcium 9.0 Phosphorus Magnesium Total Bilirubin 0.40 Direct Bilirubin 0.10 AST 95 H ALT 42 Alkaline Phosphatase 53 Total Creatine Kinase Troponin I Total Protein 7.9 Albumin 3.8 Globulin 4.1 Albumin/Globulin Ratio Triglycerides Lipase 165 TSH Free T4 Cortisol Urine Color Urine Clarity Urine pH Ur Specific [place] Urine Protein Urine Glucose (UA) Urine Ketones Urine Occult Blood Urine Nitrite Urine Bilirubin Urine Urobilinogen Ur Leukocyte Esterase Urine RBC Urine WBC Ur Squamous Epith Cells Urine Bacteria Urine Mucus Urine Osmolality Ur Random Sodium Urine Creatinine 77.30 Urine Opiates Screen Urine Methadone Screen Ur Barbiturates Screen Ur Phencyclidine Scrn Ur Amphetamines Screen U Methamphetamin-MDMA U Benzodiazepines Scrn Urine Cocaine Screen U Cannabinoids Screen Ur Drug Screen Comment MRSA (PCR) POC Glucose 04/27/18 04/27/18 04/28/18 11:45 22:06 00:05 WBC 19.1 H RBC 3.04 L Hgb 10.4 L Hct 30.6 L MCV 100.7 H MCH 34.2 H MCHC 34.0 RDW 13.9 RDW Differential 49.6 H Plt Count 243 MPV 10.0 Immature Gran % (Auto) 0.400 Neut % (Auto) 84.9 H Lymph % (Auto) 9.2 L [place] % (Auto) 4.5 Eos % (Auto) 0.8 Baso % (Auto) 0.2 Absolute Neuts (auto) 16.2 H Absolute Lymphs (auto) 1.75 Total Counted Not Reportable Specimen Type Sample Site pH Bicarbonate Actual POC Total CO2 Base Excess O2 Saturation O2 % ABG pCO2 ABG pO2 Aroldo Test Respiration Rate O2 Delivery Device Minute Volume Vent Mode Tidal Volume POC PEEP EPAP IPAP Blood Gas Notified Whom Blood Gas Notified Time Sodium Potassium Chloride Carbon Dioxide Anion Gap BUN Creatinine Estim Creat Clear Calc Est GFR (MDRD) Af Amer Est GFR (MDRD) Non-Af BUN/Creatinine Ratio Glucose Lactic Acid Calcium Phosphorus Magnesium 2.1 Total Bilirubin Direct Bilirubin AST ALT Alkaline Phosphatase Total Creatine Kinase 2459 H Troponin I Total Protein Albumin Globulin Albumin/Globulin Ratio Triglycerides Lipase TSH 163.00 H Free T4 0.19 L Cortisol Urine Color Urine Clarity Urine pH Ur Specific [place] Urine Protein Urine Glucose (UA) Urine Ketones Urine Occult Blood Urine Nitrite Urine Bilirubin Urine Urobilinogen Ur Leukocyte Esterase Urine RBC Urine WBC Ur Squamous Epith Cells Urine Bacteria Urine Mucus Urine Osmolality Ur Random Sodium Urine Creatinine Urine Opiates Screen Urine Methadone Screen Ur Barbiturates Screen Ur Phencyclidine Scrn Ur Amphetamines Screen U Methamphetamin-MDMA U Benzodiazepines Scrn Urine Cocaine Screen U Cannabinoids Screen Ur Drug Screen Comment MRSA (PCR) POC Glucose 201 H 04/28/18 04/28/18 04/28/18 00:05 01:50 03:10 WBC RBC Hgb Hct MCV MCH MCHC RDW RDW Differential Plt Count MPV Immature Gran % (Auto) Neut % (Auto) Lymph % (Auto) [place] % (Auto) Eos % (Auto) Baso % (Auto) Absolute Neuts (auto) Absolute Lymphs (auto) Total Counted Specimen Type Sample Site pH Bicarbonate Actual POC Total CO2 Base Excess O2 Saturation O2 % ABG pCO2 ABG pO2 Aroldo Test Respiration Rate O2 Delivery Device Minute Volume Vent Mode Tidal Volume POC PEEP EPAP IPAP Blood Gas Notified Whom Blood Gas Notified Time Sodium 130 L Potassium 4.2 Chloride 96 L Carbon Dioxide 21.0 Anion Gap 13 BUN 31 H Creatinine 4.48 H Estim Creat Clear Calc 16.75 Est GFR (MDRD) Af Amer 14 L Est GFR (MDRD) Non-Af 11 L BUN/Creatinine Ratio 6.9 L Glucose 221 H Lactic Acid Calcium 7.9 L Phosphorus 5.9 H Magnesium 2.0 Total Bilirubin Direct Bilirubin AST ALT Alkaline Phosphatase Total Creatine Kinase Troponin I Total Protein Albumin Globulin Albumin/Globulin Ratio Triglycerides Lipase TSH Free T4 Cortisol Urine Color Urine Clarity Urine pH Ur Specific [place] Urine Protein Urine Glucose (UA) Urine Ketones Urine Occult Blood Urine Nitrite Urine Bilirubin Urine Urobilinogen Ur Leukocyte Esterase Urine RBC Urine WBC Ur Squamous Epith Cells Urine Bacteria Urine Mucus Urine Osmolality Ur Random Sodium Urine Creatinine Urine Opiates Screen Urine Methadone Screen Ur Barbiturates Screen Ur Phencyclidine Scrn Ur Amphetamines Screen U Methamphetamin-MDMA U Benzodiazepines Scrn Urine Cocaine Screen U Cannabinoids Screen Ur Drug Screen Comment MRSA (PCR) Negative POC Glucose 198 H 04/28/18 04/28/18 04/28/18 03:45 04:22 04:22 WBC 16.9 H RBC 3.37 L Hgb 11.2 L Hct 33.8 L MCV 100.3 H MCH 33.2 H MCHC 33.1 RDW 14.3 RDW Differential 52.8 H Plt Count 247 MPV 9.6 Immature Gran % (Auto) 0.200 Neut % (Auto) 83.6 H Lymph % (Auto) 9.3 L [place] % (Auto) 5.9 Eos % (Auto) 0.9 Baso % (Auto) 0.1 Absolute Neuts (auto) 14.1 H Absolute Lymphs (auto) 1.58 Total Counted Not Reportable Specimen Type Sample Site pH Bicarbonate Actual POC Total CO2 Base Excess O2 Saturation O2 % ABG pCO2 ABG pO2 Aroldo Test Respiration Rate O2 Delivery Device Minute Volume Vent Mode Tidal Volume POC PEEP EPAP IPAP Blood Gas Notified Whom Blood Gas Notified Time Sodium 132 L Potassium 4.5 Chloride 97 L Carbon Dioxide 22.0 Anion Gap 13 BUN 32 H Creatinine 4.30 H Estim Creat Clear Calc 17.45 Est GFR (MDRD) Af Amer 14 L Est GFR (MDRD) Non-Af 12 L BUN/Creatinine Ratio 7.4 L Glucose 210 H Lactic Acid Calcium 7.8 L Phosphorus Magnesium Total Bilirubin 0.50 Direct Bilirubin AST 97 H ALT 43 Alkaline Phosphatase 57 Total Creatine Kinase Troponin I Total Protein 6.8 Albumin 3.1 L Globulin 3.7 Albumin/Globulin Ratio 0.8 L Triglycerides Lipase TSH Free T4 Cortisol Urine Color Urine Clarity Urine pH Ur Specific [place] Urine Protein Urine Glucose (UA) Urine Ketones Urine Occult Blood Urine Nitrite Urine Bilirubin Urine Urobilinogen Ur Leukocyte Esterase Urine RBC Urine WBC Ur Squamous Epith Cells Urine Bacteria Urine Mucus Urine Osmolality Ur Random Sodium 32 Urine Creatinine Urine Opiates Screen Urine Methadone Screen Ur Barbiturates Screen Ur Phencyclidine Scrn Ur Amphetamines Screen U Methamphetamin-MDMA U Benzodiazepines Scrn Urine Cocaine Screen U Cannabinoids Screen Ur Drug Screen Comment MRSA (PCR) POC Glucose 04/28/18 04/28/18 04/28/18 04:22 06:03 07:05 WBC RBC Hgb Hct MCV MCH MCHC RDW RDW Differential Plt Count MPV Immature Gran % (Auto) Neut % (Auto) Lymph % (Auto) [place] % (Auto) Eos % (Auto) Baso % (Auto) Absolute Neuts (auto) Absolute Lymphs (auto) Total Counted Specimen Type Sample Site pH Bicarbonate Actual POC Total CO2 Base Excess O2 Saturation O2 % ABG pCO2 ABG pO2 Aroldo Test Respiration Rate O2 Delivery Device Minute Volume Vent Mode Tidal Volume POC PEEP EPAP IPAP Blood Gas Notified Whom Blood Gas Notified Time Sodium Potassium Chloride Carbon Dioxide Anion Gap BUN Creatinine Estim Creat Clear Calc Est GFR (MDRD) Af Amer Est GFR (MDRD) Non-Af BUN/Creatinine Ratio Glucose Lactic Acid Calcium Phosphorus Magnesium Total Bilirubin Direct Bilirubin AST ALT Alkaline Phosphatase Total Creatine Kinase 2337 H Troponin I Total Protein Albumin Globulin Albumin/Globulin Ratio Triglycerides Lipase TSH 90.60 H Free T4 Cortisol Urine Color Urine Clarity Urine pH Ur Specific [place] Urine Protein Urine Glucose (UA) Urine Ketones Urine Occult Blood Urine Nitrite Urine Bilirubin Urine Urobilinogen Ur Leukocyte Esterase Urine RBC Urine WBC Ur Squamous Epith Cells Urine Bacteria Urine Mucus Urine Osmolality Ur Random Sodium Urine Creatinine Urine Opiates Screen Urine Methadone Screen Ur Barbiturates Screen Ur Phencyclidine Scrn Ur Amphetamines Screen U Methamphetamin-MDMA U Benzodiazepines Scrn Urine Cocaine Screen U Cannabinoids Screen Ur Drug Screen Comment MRSA (PCR) POC Glucose 180 H 04/28/18 04/28/18 04/28/18 07:05 07:05 07:05 WBC RBC Hgb Hct MCV MCH MCHC RDW RDW Differential Plt Count MPV Immature Gran % (Auto) Neut % (Auto) Lymph % (Auto) [place] % (Auto) Eos % (Auto) Baso % (Auto) Absolute Neuts (auto) Absolute Lymphs (auto) Total Counted Specimen Type Sample Site pH Bicarbonate Actual POC Total CO2 Base Excess O2 Saturation O2 % ABG pCO2 ABG pO2 Aroldo Test Respiration Rate O2 Delivery Device Minute Volume Vent Mode Tidal Volume POC PEEP EPAP IPAP Blood Gas Notified Whom Blood Gas Notified Time Sodium Potassium Chloride Carbon Dioxide Anion Gap BUN Creatinine Estim Creat Clear Calc Est GFR (MDRD) Af Amer Est GFR (MDRD) Non-Af BUN/Creatinine Ratio Glucose Lactic Acid 1.4 Calcium Phosphorus Magnesium Total Bilirubin Direct Bilirubin AST ALT Alkaline Phosphatase Total Creatine Kinase Troponin I < 0.015 Total Protein Albumin Globulin Albumin/Globulin Ratio Triglycerides Lipase TSH Free T4 Cortisol 22.80 H Urine Color Urine Clarity Urine pH Ur Specific [place] Urine Protein Urine Glucose (UA) Urine Ketones Urine Occult Blood Urine Nitrite Urine Bilirubin Urine Urobilinogen Ur Leukocyte Esterase Urine RBC Urine WBC Ur Squamous Epith Cells Urine Bacteria Urine Mucus Urine Osmolality Ur Random Sodium Urine Creatinine Urine Opiates Screen Urine Methadone Screen Ur Barbiturates Screen Ur Phencyclidine Scrn Ur Amphetamines Screen U Methamphetamin-MDMA U Benzodiazepines Scrn Urine Cocaine Screen U Cannabinoids Screen Ur Drug Screen Comment MRSA (PCR) POC Glucose 04/28/18 04/28/18 04/28/18 07:05 08:22 09:46 WBC RBC Hgb Hct MCV MCH MCHC RDW RDW Differential Plt Count MPV Immature Gran % (Auto) Neut % (Auto) Lymph % (Auto) [place] % (Auto) Eos % (Auto) Baso % (Auto) Absolute Neuts (auto) Absolute Lymphs (auto) Total Counted Specimen Type ART Sample Site R Radial pH 7.19 L* Bicarbonate Actual 19.2 L POC Total CO2 21 Base Excess -9 L O2 Saturation 86 L O2 % ABG pCO2 49.8 H ABG pO2 64 L Aroldo Test POS Respiration Rate O2 Delivery Device Room Air Minute Volume Vent Mode Tidal Volume POC PEEP EPAP IPAP Blood Gas Notified Whom ICU MD Blood Gas Notified Time 945 Sodium Potassium Chloride Carbon Dioxide Anion Gap BUN Creatinine Estim Creat Clear Calc Est GFR (MDRD) Af Amer Est GFR (MDRD) Non-Af BUN/Creatinine Ratio Glucose Lactic Acid Calcium Phosphorus Magnesium Total Bilirubin Direct Bilirubin AST ALT Alkaline Phosphatase Total Creatine Kinase 2218 H Troponin I Total Protein Albumin Globulin Albumin/Globulin Ratio Triglycerides 118 Lipase TSH Free T4 Cortisol Urine Color Urine Clarity Urine pH Ur Specific [place] Urine Protein Urine Glucose (UA) Urine Ketones Urine Occult Blood Urine Nitrite Urine Bilirubin Urine Urobilinogen Ur Leukocyte Esterase Urine RBC Urine WBC Ur Squamous Epith Cells Urine Bacteria Urine Mucus Urine Osmolality Ur Random Sodium Urine Creatinine Urine Opiates Screen Urine Methadone Screen Ur Barbiturates Screen Ur Phencyclidine Scrn Ur Amphetamines Screen U Methamphetamin-MDMA U Benzodiazepines Scrn Urine Cocaine Screen U Cannabinoids Screen Ur Drug Screen Comment MRSA (PCR) POC Glucose 179 H 04/28/18 04/28/18 04/28/18 11:29 12:08 13:23 WBC RBC Hgb Hct MCV MCH MCHC RDW RDW Differential Plt Count MPV Immature Gran % (Auto) Neut % (Auto) Lymph % (Auto) [place] % (Auto) Eos % (Auto) Baso % (Auto) Absolute Neuts (auto) Absolute Lymphs (auto) Total Counted Specimen Type ART ART Sample Site R Radial R Radial pH 7.19 L* 7.18 L* Bicarbonate Actual 20.5 L 20.4 L POC Total CO2 22 22 Base Excess -8 L -8 L O2 Saturation 100 H 95 O2 % 50 35 ABG pCO2 53.6 H 55.2 H ABG pO2 217 H 98 Aroldo Test POS POS Respiration Rate 12 16 O2 Delivery Device Bi / C PAP Bi / C PAP Minute Volume Vent Mode Tidal Volume POC PEEP EPAP 6 6 IPAP 14 14 Blood Gas Notified Whom ICU ICU Blood Gas Notified Time 1130 1325 Sodium Potassium Chloride Carbon Dioxide Anion Gap BUN Creatinine Estim Creat Clear Calc Est GFR (MDRD) Af Amer Est GFR (MDRD) Non-Af BUN/Creatinine Ratio Glucose Lactic Acid Calcium Phosphorus Magnesium Total Bilirubin Direct Bilirubin AST ALT Alkaline Phosphatase Total Creatine Kinase Troponin I Total Protein Albumin Globulin Albumin/Globulin Ratio Triglycerides Lipase TSH Free T4 Cortisol Urine Color Urine Clarity Urine pH Ur Specific [place] Urine Protein Urine Glucose (UA) Urine Ketones Urine Occult Blood Urine Nitrite Urine Bilirubin Urine Urobilinogen Ur Leukocyte Esterase Urine RBC Urine WBC Ur Squamous Epith Cells Urine Bacteria Urine Mucus Urine Osmolality Ur Random Sodium Urine Creatinine Urine Opiates Screen Urine Methadone Screen Ur Barbiturates Screen Ur Phencyclidine Scrn Ur Amphetamines Screen U Methamphetamin-MDMA U Benzodiazepines Scrn Urine Cocaine Screen U Cannabinoids Screen Ur Drug Screen Comment MRSA (PCR) POC Glucose 206 H 04/28/18 04/28/18 04/28/18 15:17 17:33 22:19 WBC RBC Hgb Hct MCV MCH MCHC RDW RDW Differential Plt Count MPV Immature Gran % (Auto) Neut % (Auto) Lymph % (Auto) [place] % (Auto) Eos % (Auto) Baso % (Auto) Absolute Neuts (auto) Absolute Lymphs (auto) Total Counted Specimen Type DENIZ Sample Site L Radial pH 7.30 L Bicarbonate Actual 18.5 L POC Total CO2 20 Base Excess -8 L O2 Saturation 98 O2 % 35 ABG pCO2 37.9 ABG pO2 123 H Aroldo Test NA Respiration Rate 16 O2 Delivery Device Vent Minute Volume Vent Mode A-C Tidal Volume 500 POC PEEP 5 EPAP IPAP Blood Gas Notified Whom ICU Blood Gas Notified Time 1520 Sodium Potassium Chloride Carbon Dioxide Anion Gap BUN Creatinine Estim Creat Clear Calc Est GFR (MDRD) Af Amer Est GFR (MDRD) Non-Af BUN/Creatinine Ratio Glucose Lactic Acid Calcium Phosphorus Magnesium Total Bilirubin Direct Bilirubin AST ALT Alkaline Phosphatase Total Creatine Kinase Troponin I Total Protein Albumin Globulin Albumin/Globulin Ratio Triglycerides Lipase TSH Free T4 Cortisol Urine Color Urine Clarity Urine pH Ur Specific [place] Urine Protein Urine Glucose (UA) Urine Ketones Urine Occult Blood Urine Nitrite Urine Bilirubin Urine Urobilinogen Ur Leukocyte Esterase Urine RBC Urine WBC Ur Squamous Epith Cells Urine Bacteria Urine Mucus Urine Osmolality Ur Random Sodium Urine Creatinine Urine Opiates Screen Urine Methadone Screen Ur Barbiturates Screen Ur Phencyclidine Scrn Ur Amphetamines Screen U Methamphetamin-MDMA U Benzodiazepines Scrn Urine Cocaine Screen U Cannabinoids Screen Ur Drug Screen Comment MRSA (PCR) POC Glucose 199 H 217 H 04/29/18 04/29/18 04/29/18 04:45 04:45 04:45 WBC 17.8 H RBC 3.27 L Hgb 11.3 L Hct 31.8 L MCV 97.2 MCH 34.6 H MCHC 35.5 RDW 13.9 RDW Differential 46.8 H Plt Count 260 MPV 9.8 Immature Gran % (Auto) 0.600 Neut % (Auto) 90.1 H Lymph % (Auto) 6.0 L [place] % (Auto) 3.0 Eos % (Auto) 0.2 Baso % (Auto) 0.1 Absolute Neuts (auto) 16.0 H Absolute Lymphs (auto) 1.07 Total Counted Not Reportable Specimen Type Sample Site pH Bicarbonate Actual POC Total CO2 Base Excess O2 Saturation O2 % ABG pCO2 ABG pO2 Aroldo Test Respiration Rate O2 Delivery Device Minute Volume Vent Mode Tidal Volume POC PEEP EPAP IPAP Blood Gas Notified Whom Blood Gas Notified Time Sodium 140 Potassium 4.3 Chloride 107 Carbon Dioxide 21.0 Anion Gap BUN 28 H Creatinine 2.65 H Estim Creat Clear Calc 28.31 Est GFR (MDRD) Af Amer 25 L Est GFR (MDRD) Non-Af 21 L BUN/Creatinine Ratio 10.6 Glucose 207 H Lactic Acid Calcium 8.0 L Phosphorus 3.4 Magnesium Total Bilirubin Direct Bilirubin AST ALT Alkaline Phosphatase Total Creatine Kinase 1222 H Troponin I Total Protein Albumin 2.7 L Globulin Albumin/Globulin Ratio Triglycerides Lipase TSH Free T4 Cortisol Urine Color Urine Clarity Urine pH Ur Specific [place] Urine Protein Urine Glucose (UA) Urine Ketones Urine Occult Blood Urine Nitrite Urine Bilirubin Urine Urobilinogen Ur Leukocyte Esterase Urine RBC Urine WBC Ur Squamous Epith Cells Urine Bacteria Urine Mucus Urine Osmolality Ur Random Sodium Urine Creatinine Urine Opiates Screen Urine Methadone Screen Ur Barbiturates Screen Ur Phencyclidine Scrn Ur Amphetamines Screen U Methamphetamin-MDMA U Benzodiazepines Scrn Urine Cocaine Screen U Cannabinoids Screen Ur Drug Screen Comment MRSA (PCR) POC Glucose 04/29/18 04/29/18 04/29/18 06:03 06:49 11:01 WBC RBC Hgb Hct MCV MCH MCHC RDW RDW Differential Plt Count MPV Immature Gran % (Auto) Neut % (Auto) Lymph % (Auto) [place] % (Auto) Eos % (Auto) Baso % (Auto) Absolute Neuts (auto) Absolute Lymphs (auto) Total Counted Specimen Type DENIZ Sample Site OTHER pH 7.38 Bicarbonate Actual 20.6 L POC Total CO2 22 Base Excess -5 L O2 Saturation 98 O2 % 30 ABG pCO2 35.1 ABG pO2 101 H Aroldo Test NA Respiration Rate 16 O2 Delivery Device Vent Minute Volume 8.00 Vent Mode A-C Tidal Volume 500 POC PEEP 5 EPAP IPAP Blood Gas Notified Whom ICU Blood Gas Notified Time 550 Sodium Potassium Chloride Carbon Dioxide Anion Gap BUN Creatinine Estim Creat Clear Calc Est GFR (MDRD) Af Amer Est GFR (MDRD) Non-Af BUN/Creatinine Ratio Glucose Lactic Acid Calcium Phosphorus Magnesium Total Bilirubin Direct Bilirubin AST ALT Alkaline Phosphatase Total Creatine Kinase Troponin I Total Protein Albumin Globulin Albumin/Globulin Ratio Triglycerides Lipase TSH Free T4 Cortisol Urine Color Urine Clarity Urine pH Ur Specific [place] Urine Protein Urine Glucose (UA) Urine Ketones Urine Occult Blood Urine Nitrite Urine Bilirubin Urine Urobilinogen Ur Leukocyte Esterase Urine RBC Urine WBC Ur Squamous Epith Cells Urine Bacteria Urine Mucus Urine Osmolality Ur Random Sodium Urine Creatinine Urine Opiates Screen Urine Methadone Screen Ur Barbiturates Screen Ur Phencyclidine Scrn Ur Amphetamines Screen U Methamphetamin-MDMA U Benzodiazepines Scrn Urine Cocaine Screen U Cannabinoids Screen Ur Drug Screen Comment MRSA (PCR) POC Glucose 212 H 202 H 04/29/18 04/30/18 04/30/18 17:41 00:04 04:00 WBC 14.9 H RBC 2.93 L Hgb 9.9 L Hct 29.0 L MCV 99.0 MCH 33.8 H MCHC 34.1 RDW 14.3 RDW Differential 49.7 H Plt Count 226 MPV 9.4 Immature Gran % (Auto) 0.200 Neut % (Auto) 88.5 H Lymph % (Auto) 9.3 L [place] % (Auto) 1.9 Eos % (Auto) 0.0 Baso % (Auto) 0.1 Absolute Neuts (auto) 13.2 H Absolute Lymphs (auto) 1.39 Total Counted Not Reportable Specimen Type Sample Site pH Bicarbonate Actual POC Total CO2 Base Excess O2 Saturation O2 % ABG pCO2 ABG pO2 Aroldo Test Respiration Rate O2 Delivery Device Minute Volume Vent Mode Tidal Volume POC PEEP EPAP IPAP Blood Gas Notified Whom Blood Gas Notified Time Sodium Potassium Chloride Carbon Dioxide Anion Gap BUN Creatinine Estim Creat Clear Calc Est GFR (MDRD) Af Amer Est GFR (MDRD) Non-Af BUN/Creatinine Ratio Glucose Lactic Acid Calcium Phosphorus Magnesium Total Bilirubin Direct Bilirubin AST ALT Alkaline Phosphatase Total Creatine Kinase Troponin I Total Protein Albumin Globulin Albumin/Globulin Ratio Triglycerides Lipase TSH Free T4 Cortisol Urine Color Urine Clarity Urine pH Ur Specific [place] Urine Protein Urine Glucose (UA) Urine Ketones Urine Occult Blood Urine Nitrite Urine Bilirubin Urine Urobilinogen Ur Leukocyte Esterase Urine RBC Urine WBC Ur Squamous Epith Cells Urine Bacteria Urine Mucus Urine Osmolality Ur Random Sodium Urine Creatinine Urine Opiates Screen Urine Methadone Screen Ur Barbiturates Screen Ur Phencyclidine Scrn Ur Amphetamines Screen U Methamphetamin-MDMA U Benzodiazepines Scrn Urine Cocaine Screen U Cannabinoids Screen Ur Drug Screen Comment MRSA (PCR) POC Glucose 170 H 168 H 04/30/18 04/30/18 04/30/18 04:00 05:38 12:27 WBC RBC Hgb Hct MCV MCH MCHC RDW RDW Differential Plt Count MPV Immature Gran % (Auto) Neut % (Auto) Lymph % (Auto) [place] % (Auto) Eos % (Auto) Baso % (Auto) Absolute Neuts (auto) Absolute Lymphs (auto) Total Counted Specimen Type Sample Site pH Bicarbonate Actual POC Total CO2 Base Excess O2 Saturation O2 % ABG pCO2 ABG pO2 Aroldo Test Respiration Rate O2 Delivery Device Minute Volume Vent Mode Tidal Volume POC PEEP EPAP IPAP Blood Gas Notified Whom Blood Gas Notified Time Sodium 139 Potassium 3.9 Chloride 105 Carbon Dioxide 22.0 Anion Gap 12 BUN 22 H Creatinine 1.67 H Estim Creat Clear Calc 44.93 Est GFR (MDRD) Af Amer 43 L Est GFR (MDRD) Non-Af 35 L BUN/Creatinine Ratio 13.2 Glucose 180 H Lactic Acid Calcium 7.5 L Phosphorus Magnesium Total Bilirubin Direct Bilirubin AST ALT Alkaline Phosphatase Total Creatine Kinase Troponin I Total Protein Albumin Globulin Albumin/Globulin Ratio Triglycerides Lipase TSH Free T4 Cortisol Urine Color Urine Clarity Urine pH Ur Specific [place] Urine Protein Urine Glucose (UA) Urine Ketones Urine Occult Blood Urine Nitrite Urine Bilirubin Urine Urobilinogen Ur Leukocyte Esterase Urine RBC Urine WBC Ur Squamous Epith Cells Urine Bacteria Urine Mucus Urine Osmolality Ur Random Sodium Urine Creatinine Urine Opiates Screen Urine Methadone Screen Ur Barbiturates Screen Ur Phencyclidine Scrn Ur Amphetamines Screen U Methamphetamin-MDMA U Benzodiazepines Scrn Urine Cocaine Screen U Cannabinoids Screen Ur Drug Screen Comment MRSA (PCR) POC Glucose 153 H 141 H 04/30/18 04/30/18 05/01/18 17:04 21:38 06:25 WBC RBC Hgb Hct MCV MCH MCHC RDW RDW Differential Plt Count MPV Immature Gran % (Auto) Neut % (Auto) Lymph % (Auto) [place] % (Auto) Eos % (Auto) Baso % (Auto) Absolute Neuts (auto) Absolute Lymphs (auto) Total Counted Specimen Type Sample Site pH Bicarbonate Actual POC Total CO2 Base Excess O2 Saturation O2 % ABG pCO2 ABG pO2 Aroldo Test Respiration Rate O2 Delivery Device Minute Volume Vent Mode Tidal Volume POC PEEP EPAP IPAP Blood Gas Notified Whom Blood Gas Notified Time Sodium Potassium Chloride Carbon Dioxide Anion Gap BUN Creatinine Estim Creat Clear Calc Est GFR (MDRD) Af Amer Est GFR (MDRD) Non-Af BUN/Creatinine Ratio Glucose Lactic Acid Calcium Phosphorus Magnesium Total Bilirubin Direct Bilirubin AST ALT Alkaline Phosphatase Total Creatine Kinase Troponin I Total Protein Albumin Globulin Albumin/Globulin Ratio Triglycerides Lipase TSH Free T4 Cortisol Urine Color Urine Clarity Urine pH Ur Specific [place] Urine Protein Urine Glucose (UA) Urine Ketones Urine Occult Blood Urine Nitrite Urine Bilirubin Urine Urobilinogen Ur Leukocyte Esterase Urine RBC Urine WBC Ur Squamous Epith Cells Urine Bacteria Urine Mucus Urine Osmolality Ur Random Sodium Urine Creatinine Urine Opiates Screen Urine Methadone Screen Ur Barbiturates Screen Ur Phencyclidine Scrn Ur Amphetamines Screen U Methamphetamin-MDMA U Benzodiazepines Scrn Urine Cocaine Screen U Cannabinoids Screen Ur Drug Screen Comment MRSA (PCR) POC Glucose 173 H 95 125 H 05/01/18 05/01/18 05/01/18 06:50 06:50 10:39 WBC 13.8 H RBC 3.23 L Hgb 10.6 L Hct 31.4 L MCV 97.2 MCH 32.8 H MCHC 33.8 RDW 14.3 RDW Differential 51.4 H Plt Count 243 MPV 9.2 Immature Gran % (Auto) 0.200 Neut % (Auto) 70.1 H Lymph % (Auto) 25.9 [place] % (Auto) 3.4 Eos % (Auto) 0.2 Baso % (Auto) 0.2 Absolute Neuts (auto) 9.7 H Absolute Lymphs (auto) 3.57 Total Counted Not Reportable Specimen Type Sample Site pH Bicarbonate Actual POC Total CO2 Base Excess O2 Saturation O2 % ABG pCO2 ABG pO2 Aroldo Test Respiration Rate O2 Delivery Device Minute Volume Vent Mode Tidal Volume POC PEEP EPAP IPAP Blood Gas Notified Whom Blood Gas Notified Time Sodium 140 Potassium 3.7 Chloride 107 Carbon Dioxide 22.0 Anion Gap 11 BUN 22 H Creatinine 1.45 H Estim Creat Clear Calc 51.74 Est GFR (MDRD) Af Amer 50 L Est GFR (MDRD) Non-Af 42 L BUN/Creatinine Ratio 15.2 Glucose 117 H Lactic Acid Calcium 7.5 L Phosphorus Magnesium Total Bilirubin Direct Bilirubin AST ALT Alkaline Phosphatase Total Creatine Kinase Troponin I Total Protein Albumin Globulin Albumin/Globulin Ratio Triglycerides Lipase TSH Free T4 Cortisol Urine Color Urine Clarity Urine pH Ur Specific [place] Urine Protein Urine Glucose (UA) Urine Ketones Urine Occult Blood Urine Nitrite Urine Bilirubin Urine Urobilinogen Ur Leukocyte Esterase Urine RBC Urine WBC Ur Squamous Epith Cells Urine Bacteria Urine Mucus Urine Osmolality Ur Random Sodium Urine Creatinine Urine Opiates Screen Urine Methadone Screen Ur Barbiturates Screen Ur Phencyclidine Scrn Ur Amphetamines Screen U Methamphetamin-MDMA U Benzodiazepines Scrn Urine Cocaine Screen U Cannabinoids Screen Ur Drug Screen Comment MRSA (PCR) POC Glucose 65 L nephrology- Dr Garcia critical care- Dr Hodges Operations: None Procedures: Transthoracic echo, - - subclavian line placement Summary of Care Provided: The patient is a 42 year old F with an extensive past medical history as listed above. She was admitted by the ED on 04/27/2018 with a history of nausea and dry heaving over the last 24 hours prior to admission and also decreased urine output. Family also reported that she may have had some loose stools over the last week. In the ED patient appeared confused and could not answer questions. She was found to be hypotensive and had hyponatremia with sodium being 128, CPK was 2459 and TSH was 163. She was admitted and managed for acute metabolic encephalopathy and acute kidney injury as well as urinary retention and rhabdomyolysis. Is also managed for severe hypothyroidism due to noncompliance with her Synthroid medication. Started on IV Zofran and normal saline. Central line was placed on account of hypotension and need for pressors. She required vasopressor support to help support her blood pressure she was transferred to the ICU after rapid response was called due to unresponsiveness. CT of the head done showed no acute findings. She was also managed for sepsis source of infection which was unclear as she had leukocytosis and tachypnea. Chest x-ray was negative and UA showing 1+ bacteria but was otherwise not remarkable. She was started on IV Zosyn. Patient was eventually intubated due to acute hypercarbic respiratory failure and acute anion gap metabolic acidosis. 2D echogram done showed EF of 75% with normal diastolic for age, trivial tricuspid valve insufficiency and RVSP estimated to be 24 mmHg , with right ventricular apical strain concerning for pulmonary embolism. However this was discussed with marshmallow runner and screening specialist who thought that patient was very unlikely to have a PE in his symptoms could also be explained by hypothyroidism. CT PE could not be done on account of severe AK. Patient improved and was subsequently extubated. Creatinine trended down and AK I improved and creatinine on day of admission and trended out about 1.65. She was started on Synthroid to 74 mcg daily. Blood and urine cultures showed no growth. Patient improved and was discharged home on 05/05/2018. Patient was counseled extensively about need to be compliant with her thyroid medication. During this admission, due to suspicion for adrenal insufficiency in light of markedly elevated TSH, patient was started on steroids. Serum cortisol level was 22.8, ruling out the likelihood of adrenal insufficiency. Patient was given a script for PO prednisone 40mg daily x 5 days upon discharge. Patient is to follow-up with her primary care doctor within 1 week for monitoring of her TSH and adjustment of her thyroid replacement hormone dose as needed. She is also to follow up with her electro mechanical technologist. Patient subclavian tunneled catheter was taken out by hospitalist prior to her discharge. Patient was counseled about risk of infection, and pneumothorax with procedure. Patient was counseled to keep dressing dry for 24 hours was mid -to-late of about 20 minutes prior to her being discharged. Patient was counseled to call her doctor or go to the ED if she noticed any fever, increased redness and swelling and tenderness over the area, as well as any discharge. Patient seen and examined prior to discharge. She had no complaints and felt well. She had taken off of BiPAP several ?2 during the night. She denied any fever or chills, any cough or chest pain, any shortness of breath, any abdominal pain, any diarrhea or vomiting. 12 point review of systems is otherwise negative. Labs and vitals reviewed. o/e: Vital Signs Height 5 ft 9 in Weight: 375 lb 0.101 oz Weight in Pounds 375.0 lbs Pulse Ox 100 Temperature 98.3 F Pulse Rate [Left Wrist/Radial 95 Arterial Line] Pulse Rate 80 Respiratory Rate 16 Blood Pressure [2nd BP] 139/93 Blood Pressure [BP] 132/84 Blood Pressure [Left Wrist/ 106/63 Radial Arterial Line] Blood Pressure 130/69 Blood Pressure Position [2nd Semi-Fowlers BP] Blood Pressure Position [BP] Semi-Fowlers Blood Pressure Position [Left Semi-Fowlers Wrist/Radial Arterial Line] Blood Pressure Position Right Lateral General: Alert, Oriented x3, Cooperative, No apparent distress HEENT: Atraumatic, PERRLA, EOMI, Normocephalic Oral: Moist Mucosa Neck: Supple, No JVD, Negative Carotid Bruits Lungs: Clear to auscultation, Normal air movement, No rhonchi, No wheeze, No rales Cardiovascular: Regular rate, Regular Rhythm, Normal S1, Normal S2, No murmurs Abdomen: Bowel Sounds Present, Soft, Non Tender, Non-Distended, No Hepato- splenomegaly Extremities: No clubbing, No cyanosis, No edema, Capillary Refill Less than 3 Seconds Skin: No rashes, No breakdown Musculoskeletal: No Tenderness to Palpation of Joints or Extremities, No Muscle Wasting, Arthritic Changes Lymphatic: No Cervical, Supraclavicular, or Inguinal Adenopathy Neurological: Cranial nerves II-XII grossly intact, Neuro grossly intact, Motor Exam 5/5 strength throughout Psych/Mental Status: Normal Affect, Appropriate, Alert and oriented to time, place, person, mood and affect Plan as stated above. [] Discharge Diet: Low fat/ Low Cholesterol Discharge Activity: Return to Normal Activity Weight Bearing Status: Weight bearing as tolerated Call your doctor if you observe: Fever of 101 or Higher, Shortness of breath, Dizziness, Increased palpitations (irregular heartbeat) Home Medications: Medications to take at Discharge Omeprazole [Prilosec] 40 mg PO DAILY 10/16/15 lidocaine 5 % topical ointment 1 applic TOPICAL BID-QID PRN 10/15/17 oxybutynin chloride 5 mg tablet 5 mg PO TID 10/15/17 Tizanidine HCl [Zanaflex] 4 mg PO TID 01/18/18 glimepiride 2 mg tablet 2 mg PO QAM #90 tab 02/19/18 hydrochlorothiazide 12.5 mg capsule 12.5 mg PO QAM #90 cap 02/19/18 amitriptyline 75 mg tablet 75 mg PO QHS #60 tab 04/06/18 venlafaxine ER 150 mg capsule,extended release 24 hr 150 mg PO BID cap Atorvastatin Calcium [Lipitor] 40 mg PO QHS 04/27/18 Blood Sugar Diagnostic [Assure Prism Multi] 0 x .ROUTE .MEDSUPPLY 04/27/18 Cider Vinegar [Apple Cider Vinegar] 300 mg PO DAILY 04/27/18 Flash Glucose Scanning Dunnigan [Freestyle Yuliana Dunnigan] 0 x .ROUTE .MEDSUPPLY 06/04 Lancets 0 x .ROUTE .MEDSUPPLY 04/27/18 Multivit-Min/Iron/Folic/Lutein [Centrum Silver Women Tablet] 1 tab PO DAILY 06/04 Levothyroxine [Synthroid] 274 mcg PO DAILY@0600 #60 tab 05/01/18 Prednisone 40 mg PO DAILY 5 Days #10 tab 05/01/18 Topiramate [Topamax] 100 mg PO BID tablet 05/01/18 Following Prescrptions Were Given to Patient: Levothyroxine [Synthroid] 274 mcg PO DAILY@0600 #60 tab Prednisone 40 mg PO DAILY 5 Days #10 tab Primary Care Physician: Megha Hand MD [Primary Care Provider] - Please follow up with your Primary Care Physician in: 1 week Please Follow Up With: Tangela Garcia DO When: 1-2 weeks Patient Instructions: Discharge Instructions for Hypothyroidism and Myxedema Disposition: Home Minutes spent on discharge:: 45 Patient Condition:: Stable Medical Necessity - Tobacco Use Smoking Status: Never smoker Tobacco Use: Non-smoker Meaningful Use Info Meaningful Use Diagnoses (Choose all that apply): None applicable Code Visit Inpatient E&M: 79370 Disch Hosp Procedures: Other Procedure - See Report - removal of tunneled subclavian catheter
--- NOTE | 2018-05-01 14:19 | NURSING ---
Dr. Diaz to unit- d/c'ed tunneled central catheter at 1335 via sterile technique. Vaseline gauze applied with dressing. Pt. laid flat for [address] Diaz's order and this RN applied more pressure with tape and gauze per orders. Pt tolerated well and was discharged from unit.
--- NOTE | 2018-05-01 14:23 | NURSING ---
pt notified of new prescription for prednisone and synthroid at time of discharge
--- NOTE | 2018-05-06 15:53 | CASEMGMT ---
YASEMIN CRAIN Discharge Follow-up Phone Call: ARLEYEdita: aRdha Strata: 3 Call Date: 05/06/18 Discharge Date: 05/01/18 Time of Call: 1552 Duration: 2 min Admitting Diagnosis: BAMBI, Urinary retention, hyponatremia RN PARAS completed follow-up phone call after recent hospitalization. Patient states that she is doing well and had no questions regarding discharge instructions. Patient was able to fill prescription without any issues. Patient states that she will schedule follow-up appointments shortly.
== END 2018-05-01 14:10 | disposition home or self-care (01) | DRG 468 ==
LOC: ED 10:31 → MS3 16:01 → ICU 04-28 01:07 → MS3 05-01 09:35
PROVIDERS: Family Medicine; Internal Medicine Critical Care Medicine; Internal Medicine Nephrology; Admitting Provider Family Medicine; Emergency Provider Emergency Medicine; Family Provider Internal Medicine; PCP Internal Medicine; Visit Provider Student in an Organized Health Care Education/Training Program
DX: N17.9 Acute kidney failure, unspecified (principal); E87.1 Hypo-osmolality and hyponatremia; J96.01 Acute respiratory failure with hypoxia; A41.9 Sepsis, unspecified organism; R57.8 Other shock; E11.65 Type 2 diabetes mellitus with hyperglycemia; R33.9 Retention of urine, unspecified; G93.41 Metabolic encephalopathy; E89.0 Postprocedural hypothyroidism; E66.01 Morbid (severe) obesity due to excess calories; Z68.43 Body mass index [BMI] 50.0-59.9, adult; M62.82 Rhabdomyolysis; Z91.14 Patient's other noncompliance with medication regimen; G89.4 Chronic pain syndrome; Z79.84 Long term (current) use of oral hypoglycemic drugs; K21.9 Gastro-esophageal reflux disease without esophagitis; I10 Essential (primary) hypertension
CPT/HCPCS: 31500; 31720; 36600; 51702; 70450; 71045; 71046; 74019; 80048; 80053; 80069; 80076; 80307; 81001; 82533; 82550; 82570; 82803; 82962; 83605; 83690; 83735; 83935; 84100; 84300; 84439; 84443; 84478; 84484; 85025; 85027; 87040; 87086; 87506; 87641; 93005; 93306; 94002; 94003; 94660; 95831; 97802; 99251; 99285; J7030; Q9957; A4216; C8929; G0463; J2405

== ENCOUNTER 2018-11-06 10:54 | Emergency (ER) | payer MEDICAID, SELFPAY ==
[2018-11-06 10:56] VITALS: BP 147/90; PULSE 105; RESP 18; TEMP 36.7; O2SAT 98; BMI 60.3
--- NOTE | 2018-11-06 11:24 | CT_ITS ---
STUDY: CT ABDOMEN AND PELVIS WITH CONTRAST REASON FOR EXAM: Female, 43 years old. umbilical abd pain, possible hernia RADIATION DOSAGE (If Supplied By Facility): CTDIvol = ( 19.59 ) mGy, DLP = ( 1870.27 ) mGycm TECHNIQUE: Transaxial images were obtained from the dome of the diaphragm to the symphysis pubis without oral contrast. Isovue 300 85 IV was administered. Sagittal and coronal images were reconstructed. Individualized dose optimization techniques were used for this CT. COMPARISON: None. FINDINGS: The visualized lung bases are unremarkable. The visualized portions of the heart are within normal limits. Normal liver. There are surgical clips in the gallbladder fossa consistent with a prior cholecystectomy. Normal spleen. Normal pancreas. Normal bilateral adrenal glands. Normal right kidney. Normal left kidney. Normal visualized stomach. Normal small intestine. Normal colon. There is non-visualization of the appendix. Normal abdominal aorta. Normal inferior vena cava. Normal retroperitoneum. Normal urinary bladder. There is a 9 cm umbilical hernia containing small bowel loops without evidence of incarceration. There are diffuse degenerative changes of the visualized lumbar spine. CT/Abdomen/Pelvis W IV Cont ONLY IMPRESSION: There is a 9 cm umbilical hernia containing small bowel loops without evidence of incarceration. Electronically Signed: Fernando Bailey, at 13:07 EDT Tel , Service support ,
--- NOTE | 2018-11-06 11:38 | ED.VISSUMM ---
- ER Visit Summary Date of Service: 11/06/18 Chief Complaint: Abdominal pain History of Present Illness: The patient is a 43 F 3-day history of abdominal pain umbilicus region. No traumas. Reports small open wound noted malodorous drainage yesterday. States history of hernia, also history of MRSA with infection in the same area in the past. She is followed by surgeon Dr. Andrade in [place]. Last seen was in July. She states she has had 6 hernia surgeries. States a week ago had a fever seen in her doctor's office. Nausea without vomiting. Normal bowel movement yesterday. Positive flatus. Denies history of bowel obstructions. Concerned that hernia is getting bigger and concerned of potential MRSA abscess infection. States urine has a strong odor. No dysuria. Skin was sinus congestion for the past month, she was on doxycycline 3 weeks ago. Reports allergy to sulfa drugs. Physical Examination: General: Alert and oriented ?3, no acute distress. BMI 60 HEENT: Normocephalic, atraumatic. Moist mucosa membranes Neck: supple, nontender. Cardiovascular: Regular rate and rhythm, no murmurs Respiratory: Normal breath sounds, symmetric, no distress Abdomen: Soft, umbilicus inferior small open wound with serosanguineous drainage, no exudates. On laying down there is a ventral hernia on the right side which is reducible. No guarding or rebound. Extremities: Nontender, no edema, pulses intact ?4 Neuro: no focal neurological deficits. Test Results: WBC 8.3, he will 13. Creatinine 0.94. Glucose 218. Lipase 207. Lactic acid 1.6. UA negative. CT scan abdomen pelvis IV contrast 9 cm umbilical hernia with small bowel loops, there is no incarceration, no obstruction findings. No abscess. Emergency Department Course and Treatment: Patient concerns for wound abscess and worsening hernia symptoms. Discussed workup. She had nonsurgical abdomen. Labs are stable, CT scan notes umbilical hernia with no incarceration or obstructions. She is been moving her bowels and passing gas. There is no abscess. However reported MRSA history with exudative drainage from the wound site. Wound care discussed dressing placed by nursing started on doxycycline for coverage. Given morphine and Phenergan and Benadryl for pain and anxiety symptoms. Patient sees Dr. Andrade surgery for her hernia last seen July. She reports she was told that he cannot do any further treatments. Discussed with patient to call her surgeon for referral if needed. Signs of obstruction discussed to return. Otherwise follow-up as an outpatient. [facility]aars report shows no significant findings for opiates, short prescription for Karthaus. All questions were answered. Treatment Plan: [] Disposition: Discharge Impression: 1. Abdominal pain 2. Umbilical hernia 3. Abdominal skin wound This note was generated with [employer] dictation software. It may contain incorrect words, spelling, and punctuation that were not noted in review of the chart prior to signing ED Disposition - Plan for ED Patient: Disposition: Home or Assisted Living Diagnosis: Abdominal pain, Umbilical hernia without obstruction and without gangrene, Abdominal skin wound Instructions: What Is a Hernia?, Wound Care Prescriptions: Hydrocodone Bitart/Apap 5-325 [Karthaus 5MG-325MG] 1 tablet PO Q6H PRN PRN 3 Days #12 tablet PRN Reason: Pain proMETHazine tablet [Phenergan] 25 mg PO Q6H PRN PRN #10 tablet PRN Reason: Nausea Doxycycline 100 mg PO BID #20 capsule Referrals: Lissett Begum, [facility] [employer] PATROLLER-C [Primary Care Provider] - Additional Instructions: Call Dr. Andrade for follow up or referral for umbilical hernia.
[2018-11-06] MEDS: proMETHazine 25 MG/ML Syringe 12.5 MG IV (12:12)
[2018-11-06] MEDS: Morphine 4 MG/ML Syringe IV (12:12)
[2018-11-06] MEDS: 0.9% Normal Saline 1,000 ML 125 ML IV (12:12)
[2018-11-06 12:25] LABS: Absolute Lymphocyte Count 3.15 X10^3/ul (0.83-4.51); Absolute Neutrophil Count 4.5 X10^3/uL (2.0-7.7); Basophil# 0.04 X10^3/uL; Basophil% 0.5 % (0-1); Eosinophils% 2.4 % (0-5); Lymphocyte # 3.15 X10^3/ul (4.0); Mean Corp Hgb Conc 34.2 g/gl (32-36); Mean Corpuscular Hgb 31.2 pg (27.0-32.0); Mean Corpuscular Volume 91.1 fL (81-99); Mean Platelet Vol. 9.5 fl (6.2-12.0); Monocyte# 0.45 X10^3/uL; Monocyte% 5.4 % (0-10); Neutrophil # 4.46 X10^3/uL (2.7-7.7); Neutrophil % 53.7 % (47-70); Platelet Count 239 K/mm3 (150-450); RBC Distribution Width SD 43.1 fl (35.1-43.9); Red Blood Count 4.17 M/mm3 (4.2-5.4); White Blood Count 8.3 K/mm3 (4.4-11.0)
[2018-11-06 12:33] LABS: POSITIVE COUNT NO; POSITIVE DIFFERENTIAL NO; POSITIVE MORPHOLOGY NO
[2018-11-06 12:38] LABS: ALB/GLOB Ratio 0.9 RATIO (0.9-2.4); AST(SGOT) 120 U/L (15-37); Alanine Aminotransfer ALT/SGPT 98 U/L (13-56); Albumin, Serum 3.3 g/dL (3.2-5.0); Alkaline Phosphatase 72 U/L (45-117); Anion Gap 9 (5-15); BUN 21 mg/dL (7-18); BUN/Creat Ratio 22.4 RATIO (10-20); Calcium,Total 8.4 mg/dL (8.5-10.1); Chloride 103 mmol/L (98-107); Creatinine, Serum 0.94 mg/dL (0.55-1.02); EST Glomerular Filtration Rate 69 mL/min (>60); Est Glom Filt Rate - Afr Amer 83 mL/min (>60); Estimated Creatinine Clearance 78.98 ml/min; Globulin 3.7 g/dL (2.2-4.2); Glucose 218 mg/dL (74-106); Lipase 207 U/L (73-393); Potassium 4.1 mmol/L (3.5-5.1); Sodium Level 137 mmol/L (136-145)
[2018-11-06 12:47] LABS: Lactic Acid 1.6 mmol/L (0.4-2.0)
[2018-11-06 13:22] VITALS: BP 128/86; PULSE 104; RESP 18; O2SAT 97
[2018-11-06] MEDS: proMETHazine 25 MG/ML Syringe 6.25 MG IV (13:47)
[2018-11-06] MEDS: DiphenhydrAMINE 25 MG Capsule 50 MG PO (13:48)
[2018-11-06] MEDS: HYDROcodone Bitartrate/Apap 5/325 Tablet PO (13:48)
[2018-11-06] MEDS: Doxycycline 100 MG CAPSULE PO (13:48)
[2018-11-06 13:57] LABS: Bacteria 0 SEEN /hpf (None Seen); Mucous, Urine 0 SEEN /hpf (<or=2+); Red Blood Cells-Urine 0 SEEN /hpf (0-5); White Blood Cells 0 SEEN /hpf (0-5)
[2018-11-06 14:25] LABS: Color, Urine Yellow (Yellow); Glucose, Dipstick Normal (Normal); Ketone-Dipstick Negative (Negative); Leukocyte Esterase-Dipstick Negative /ul (Negative); Nitrite-Dipstick Negative (Negative); Occult Blood-Urine Negative /ul (Negative); Protein-Dipstick Negative (Negative); Urine Bilirubin Dipstick Negative (Negative); Urine Clarity Clear (Clear); Urine Urobilinogen Normal (Normal)
[2018-11-06 14:27] LABS: Squamous Epithelial Cells - UA 0-5 SEEN /hpf (5-10)
[2018-11-06 15:09] VITALS: BP 132/90; PULSE 104; RESP 18; O2SAT 95
== END 2018-11-06 15:11 | disposition home or self-care (01) ==
PROVIDERS: Emergency Provider Emergency Medicine; Family Provider Nurse Practitioner Primary Care; PCP Nurse Practitioner Primary Care
DX: K42.9 Umbilical hernia without obstruction or gangrene (principal); S31.105A Unspecified open wound of abdominal wall, periumbilic region without penetration into peritoneal cavity, initial encounter; X58.XXXA Exposure to other specified factors, initial encounter; E11.9 Type 2 diabetes mellitus without complications; F32.9 Major depressive disorder, single episode, unspecified; Z79.84 Long term (current) use of oral hypoglycemic drugs; Z79.899 Other long term (current) drug therapy; Z86.14 Personal history of Methicillin resistant Staphylococcus aureus infection
CPT/HCPCS: 74177; 80053; 81001; 83605; 83690; 85025; 96361; 96374; 96375; 99285; J7030; Q9967; A4216

== ENCOUNTER 2019-01-22 19:26 | Emergency (ER) | payer MEDICAID, SELFPAY ==
[2019-01-22 19:26] VITALS: BP 161/97; PULSE 104; RESP 18; TEMP 36.8; O2SAT 99; BMI 58.3
--- NOTE | 2019-01-22 19:35 | RAD_ITS ---
STUDY: X-RAY CHEST REASON FOR EXAM: Female, 43 years old. Fall this morning. Anterior right sided pain. TECHNIQUE: PA and lateral views of the chest. COMPARISON: AP upright chest x-ray April 28, 2018. FINDINGS: The endotracheal nasogastric tube seen on previous study have since been removed. The lungs are clear and more fully expanded today. There is no demonstrated pleural abnormality. Normal size heart. Normal mediastinum and galina. Normal visualized pulmonary arteries. Normal visualized aortic arch and descending thoracic aorta. There are minor degenerative changes of the visualized thoracic spine. 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 There is no demonstrated abnormality of the visualized soft tissue structures of the upper abdomen. RAD/Chest PA and Lateral IMPRESSION: No acute cardiopulmonary disease. Electronically Signed: Kan Delaney MD at 19:48 EDT , Service support ,
[2019-01-22 20:55] VITALS: BP 158/89; PULSE 100; RESP 22; TEMP 36.9; O2SAT 99
[2019-01-22 21:00] VITALS: TEMP 36.8
--- NOTE | 2019-01-22 22:00 | ED.DCSUM_ITS ---
- ER Visit Summary Date of Service: 01/22/19 Chief Complaint: Fall History of Present Illness: The patient is a 43 F who presents with a fall that occurred today. Patient states she slipped while she was trying to get into the bathtub. Patient states she fell onto the edge of the bathtub on the right side of her chest. Patient states the pain is aching and stabbing. Patient states the pain is worse with movement and with cough. Patient denies any head injury or loss of consciousness. Patient denies any paresthesias or weakness. Patient denies any other injuries. Physical Examination: Vital signs are stable. Patient is afebrile. Patient is in no acute distress. Oral mucosa is pink and moist. Neck is supple. Trachea is midline. There is no JVD noted. Heart was regular rate and rhythm. Lungs are clear and equal bilaterally. There is tenderness over the right chest wall. There is no bony crepitance or step-off. Abdomen is soft. Bowel sounds are normal. There is some mild tenderness around the umbilicus. There is some mild erythema at the umbilicus. There is no warmth. There is no active discharge or drainage. Cranial nerves II through XII are intact. There are no focal motor or sensory deficits noted. Test Results: PA and lateral chest x-rays obtained. There is no acute rib fracture or pneumothorax. There is no acute cardiopulmonary process. Emergency Department Course and Treatment: Patient was given an injection of morphine here. Patient was instructed to follow-up with her primary care physician in 5 to 7 days. Patient was instructed to take Tylenol or ibuprofen as needed for pain. Patient was instructed to use ice to the area. Patient and family understood and were agreeable with the plan. All questions were answered. Disposition: Discharge home Impression: Chest wall contusion This note was generated with [employer] dictation software. It may contain incorrect words, spelling, and punctuation that were not noted in review of the chart prior to signing ED Disposition - Plan for ED Patient: Disposition: Home or Assisted Living Diagnosis: Chest wall contusion Instructions: ED Contusion Chest Wall, ED Mechanical Fall Referrals: Lissett Begum NP-C [Primary Care Provider] - 5-7 Days Additional Instructions: Your x-rays are negative for any acute fracture of your ribs. You have a bruise to your chest wall. Take 10-15 deep breaths every hour while awake to prevent pneumonia. You may use Tylenol or ibuprofen as needed for pain. Ice will help with the pain and swelling. Follow-up with your primary care physician in 5 to 7 days for further evaluation.
[2019-01-22 22:09] VITALS: BP 147/90; PULSE 100; RESP 20; O2SAT 97
[2019-01-22] MEDS: Morphine 4 MG/ML Syringe IM (22:09)
--- NOTE | 2019-01-22 22:30 | ED.RN ---
PT WAS OBSERVED FOR SHOT TIME FOR 15MIN, THIS NURSE DID NOT SEE ANY ADVERSE REACTION FROM THE INJECTION.
[2019-01-22 22:31] VITALS: BP 147/90; PULSE 100; RESP 22; O2SAT 97
== END 2019-01-22 22:32 | disposition home or self-care (01) ==
PROVIDERS: Emergency Provider Emergency Medicine; Family Provider Nurse Practitioner Primary Care; PCP Nurse Practitioner Primary Care
DX: S20.211A Contusion of right front wall of thorax, initial encounter (principal); R05 Cough; R06.00 Dyspnea, unspecified; W01.0XXA Fall on same level from slipping, tripping and stumbling without subsequent striking against object, initial encounter; Y93.9 Activity, unspecified; Y92.9 Unspecified place or not applicable; E66.9 Obesity, unspecified; M79.7 Fibromyalgia; F32.9 Major depressive disorder, single episode, unspecified; E03.9 Hypothyroidism, unspecified; Z79.899 Other long term (current) drug therapy
CPT/HCPCS: 71046; 96372; 99282

== ENCOUNTER → 2019-06-18 16:06 | Outpatient (CLI) | payer MEDICAID, SELFPAY | PROVIDERS: Family Provider Nurse Practitioner Primary Care; PCP Nurse Practitioner Primary Care; Referring Provider Otolaryngology; Visit Provider Otolaryngology | DX: J32.9 Chronic sinusitis, unspecified (principal) | CPT/HCPCS: 87070; 87205 ==

== ENCOUNTER 2020-06-01 17:32 | Emergency (ER) | payer MEDICAID, SELFPAY ==
[2020-06-01] VITALS (12 sets, daily range): BP systolic 91–168; BP diastolic 56–97; PULSE 90–110; RESP 16–24; TEMP 35.7–36.6; O2SAT 95–100; BMI 60.7
--- NOTE | 2020-06-01 17:48 | EKG12_ITS ---
Test Reason : Blood Pressure : / mmHG Vent. Rate : 103 BPM Atrial Rate : 103 BPM P-R Int : 144 ms QRS Dur : 096 ms QT Int : 362 ms P-R-T Axes : 037 021 -11 degrees QTc Int : 474 ms Sinus tachycardia Possible Inferior infarct , age undetermined T wave abnormality, consider anterior ischemia Abnormal ECG Confirmed by TANIA PRESSLEY, JOESPH ([id number]), scientific publications editor ANNELISE SCHMITZ ([id number]) on 06/15/2020 9:37:34 A M Referred By: JESENIA Confirmed By:DAISY MARIN MD
--- NOTE | 2020-06-01 18:04 | ED.VIS.GEN ---
History of Present Illness Chief Complaint: Cough Informant: Patient Onset: Days Context: Gradual Onset Timing: Continuous Narrative: Patient is a 45-year-old female presenting with worsening shortness of breath and respiratory symptoms. Patient states for the past few days she has had worsening fatigue, nasal congestion, sore throat, chest tightness and cough. Her cough is bed productive of green sputum. She states he had a fever of 101 yesterday. She has associated chills. She is has had nausea with diarrhea. Denies any black or blood in her stool. She notes that her grandchild's other grandparent tested positive for Covid last week. They both watch the grandchild regularly. Grandchild is 1-1/2 years old and not had any symptoms. Patient also know she has had a funny feeling in her chest. She states that she had a cath back in March because she was having a heart attack but her cath came back normal. She is not have any stents. She also notes her blood sugars been running higher lately, in the 400s. Past Medical History - Allergies and Home Meds Allergies/Adverse Reactions: Allergies hydroxyzine [From Atarax] Allergy (Verified 06/01/20 17:37) Hives Sulfa (Sulfonamide Antibiotics) Allergy (Verified 06/01/20 17:37) Hives raspberry Adverse Reaction (Verified 06/01/20 17:37) Other [facility] Primary Care Physician: Lissett Begum MILANESE KNITTING MACHINE OPERATOR, MILANESE KNITTING MACHINE OPERATOR-C [Primary Care Provider] - Past Medical History: - - HTN, Hypothydroid, DM, GERD, fibromylagia Surgical History: - - Hernia repair, sinus surgery, thyroidectomy, , appendectomy, cholecystectomy, RUTH, cervical lymph node resection. Smoking Status: Never smoker - Family History Maternal Family History: Family History (Last Reviewed 06/01/20 @ 21:[address] Miceky Guardado, ) Mother Arthritis Breast cancer Heart disease Father Heart disease Alcohol abuse Blood clot in vein Sister Anxiety Depression Brother Anxiety Family History: Reports: No pertinent history Review of Systems General: Reports: Chills, Fever, Malaise. Denies: Sweats Eyes: Denies: Visual changes - bilaterally, Diplopia ENT: Reports: Sore throat, - - nasal congestion, lost of smell/taste . Denies: Rhinorrhea Cardiovascular: Reports: Chest pain - discomfort . Denies: Palpitations Respiratory: Reports: Dyspnea, Cough, Sputum - green. Denies: Dyspnea on exertion Gastrointestinal: Reports: Nausea, Diarrhea. Denies: Abdominal pain, Vomiting, Melena, Hematochezia Genitourinary: Denies: Dysuria, Hematuria, Frequency Musculoskeletal: Reports: Myalgias. Denies: Back pain, Extremity Pain Skin: Reports: Abscess - right axilla . Denies: Rash, Wounds Neurological: Denies: Headache, Weakness, Numbness Physical Exam Vital Signs/Narrative: Vital Signs Temp Pulse Resp BP Pulse Ox 06/01/20 17:32 96.3 F L 110 H 24 H 135/97 H 98 Inital Vital Signs reviewed: Yes General: Well nourished, Well developed, Obese, No Acute Distress Head: Normocephalic, Atraumatic Eyes: Perrl, EOMI ENT: Moist mucous membranes, No rhinorrhea, TM's clear Neck: Supple, Nontender, No lymphadenopathy, No JVD Cardiovascular: Regular rhythm, No murmurs, Tachycardia Respiratory: No distress, CTA bilaterally, Chest nontender. Negative for: Diminished, Decreased Air Movement, Retractions Abdomen: Soft, Nontender, Nondistended, Normal bowel sounds Back: Nontender, Normal Inspection Extremities: Nontender, No edema Skin: No rash, - - mottled. 1 cm abscess right axilla, no surrounding erythema Neurological: Alert, Oriented x3, Cranial nerves II-XII grossly intact, Normal Strength, Normal Sensation Psychological: Normal affect, Normal Mood Diagnostic/Tx/Re-eval Chest X-Ray - ED: 1 View, Read by ED Physician, Read by Radiologist, No Acute Disease Clinical Impression(s) from Imaging Studies Chest X-Ray 06/01/20 19:24 IMPRESSION: Normal x-ray examination of the chest. Electronically Signed: Mark Hough MD at 19:55 EDT , Service support , Laboratory Data 06/01/20 06/01/20 06/01/20 19:10 19:10 19:10 WBC 11.5 H RBC 4.71 Hgb 15.3 H Hct 46.3 MCV 98.3 MCH 32.5 H MCHC 33.0 RDW Std Deviation 45.1 H RDW Coeff of Yajaira 12.4 Plt Count 287 MPV 10.5 Immature Gran % (Auto) 0.300 Neut % (Auto) 69.6 Lymph % (Auto) 23.9 Pratt % (Auto) 4.3 Eos % (Auto) 1.5 Baso % (Auto) 0.4 Absolute Neuts (auto) 8.0 H Absolute Lymphs (auto) 2.75 Nucleated RBC % 0 PT 12.4 INR 1.0 APTT 23.2 L Sodium 140 Potassium 4.6 Chloride 108 H Carbon Dioxide 25.0 Anion Gap 7 BUN 9 Creatinine 0.92 Estim Creat Clear Calc 81.75 Est GFR (MDRD) Af Amer 84 Est GFR (MDRD) Non-Af 70 BUN/Creatinine Ratio 9.8 L Glucose 164 H Lactic Acid Calcium 9.4 Total Bilirubin 0.60 AST 52 H ALT 42 Alkaline Phosphatase 71 Troponin I < 0.015 Total Protein 7.8 Albumin 3.5 Globulin 4.3 H Albumin/Globulin Ratio 0.8 L Urine Color Urine Clarity Urine pH Ur Specific [place] Urine Protein Urine Glucose (UA) Urine Ketones Urine Occult Blood Urine Nitrite Urine Bilirubin Urine Urobilinogen Ur Leukocyte Esterase Urine RBC Urine WBC Ur Squamous Epith Cells Urine Bacteria Urine Mucus 06/01/20 06/01/20 19:10 20:15 WBC RBC Hgb Hct MCV MCH MCHC RDW Std Deviation RDW Coeff of Yajaira Plt Count MPV Immature Gran % (Auto) Neut % (Auto) Lymph % (Auto) [place] % (Auto) Eos % (Auto) Baso % (Auto) Absolute Neuts (auto) Absolute Lymphs (auto) Nucleated RBC % PT INR APTT Sodium Potassium Chloride Carbon Dioxide Anion Gap BUN Creatinine Estim Creat Clear Calc Est GFR (MDRD) Af Amer Est GFR (MDRD) Non-Af BUN/Creatinine Ratio Glucose Lactic Acid 1.8 Calcium Total Bilirubin AST ALT Alkaline Phosphatase Troponin I Total Protein Albumin Globulin Albumin/Globulin Ratio Urine Color Yellow Urine Clarity Sl. Cloudy Urine pH 6.0 Ur Specific [place] 1.015 Urine Protein Negative Urine Glucose (UA) Normal Urine Ketones Negative Urine Occult Blood Negative Urine Nitrite Negative Urine Bilirubin Negative Urine Urobilinogen Normal Ur Leukocyte Esterase 100 H Urine RBC 0 SEEN Urine WBC 10-25 SEEN Ur Squamous Epith Cells 0-5 SEEN Urine Bacteria 0 SEEN Urine Mucus 0 SEEN - Rhythm Strip Rhythm Strip: Sinus Tach Rate: 103 Ectopy: None - EKG Initial EKG Interpretation: Sinus Tachycardia, - - Tachycardia at a rate of 103 Normal axis Normal intervals Nonspecific T wave changes - Medical Decision Making Patient's evaluated for worst respiratory symptoms, fever and diarrhea. She has had a possible exposure to coronavirus. On arrival patient is tachycardic and tachypneic but afebrile. In addition patient appears to have an early abscess of her right axilla. I&D performed of abscess with minimal purulent drainage. See procedure note. Patient does require 2 doses of morphine for pain control associated with her abscess/I&D. Chest x-ray does not show any acute process. Her white blood cell count is very mildly elevated 11.5 which is a mildly elevated Hgb of 15.3. Her platelets are normal. She is not have any other significant laboratory abnormalities except for mildly elevated glucose of 164. Clinically I suspect patient has coronavirus. She is ambulated and patient desaturated to 83% on room air. Given her desaturation and respiratory symptoms I do think she requires admission. Patient initially agreeable with plan accepted by the hospitalist however before she goes upstairs patient changes her mind and states that she does not want to be admitted. Patient is counseled with her amatory hypoxia as she is at high risk of sudden clinical deterioration possible /endorgan damage/permanent disability. Patient verbalizes agreement understands this plan. She does have capacity to make this decision. She will be discharged home on a course of Keflex for her abscess as well as Decadron for suspected Covid pneumonia. Patient is given first dose of Decadron in the ER. Patient is encouraged to follow-up with her primary care doctor or return to the emergency room. Procedures Procedure(s): Incision and drainage?area anesthetized with 2 cc of 1% lidocaine without epinephrine. Once adequate analgesia is achieved #11 blade used to make a stab incision over the area of maximal fluctuance. Hemostat used to open up any potential loculations. No significant purulent discharge is expressed at the time of incision and drainage. No immediate complications. ED Disposition - Plan for ED Patient: Disposition: Against Medical Advice Diagnosis: Hypoxia, Abscess of right axilla, Suspected COVID-19 virus infection, Left against medical advice Instructions: ED Abscess Incision And Drainage, ED PNEUMONITIS Adult Prescriptions: Dexamethasone [Decadron] 6 mg PO DAILY 5 Days #5 tab Transmission Status: Received by [facility] [place] [address] Cephalexin [Keflex] 500 mg PO Q6 #40 cap Transmission [facility]: [facility] [facility] Referrals: Lissett Begum NP, MILANESE KNITTING MACHINE OPERATOR-C [Primary Care Provider] - Additional Instructions: Return immediately to the emergency room if you develop worsening symptoms or you change your mind like to be admitted. Call your primary care doctor tomorrow for further guidance. Perform warm compresses to your underarm.
[2020-06-01] MEDS: Ondansetron 4 MG/2 ML Vial IV (18:54)
[2020-06-01] MEDS: 0.9% Normal Saline 1,000 ML 999 ML IV (18:54)
[2020-06-01] MEDS: Acetaminophen 500 MG Tablet 1000 MG PO (18:55)
[2020-06-01 19:15] LABS: Absolute Lymphocyte Count 2.75 X10^3/uL (0.83-4.51); Basophil# 0.05 X10^3/uL; Basophil% 0.4 % (0-1); Eosinophil# 0.17 X10^3/uL; Eosinophils% 1.5 % (0-5); Hematocrit 46.3 % (37-47); Hemoglobin 15.3 g/dL (12.0-15.0); Lymphocyte # 2.75 X10^3/ul (4.0); Lymphocyte % 23.9 % (19-41); Mean Corpuscular Hgb 32.5 pg (27.0-32.0); Mean Corpuscular Volume 98.3 fL (81-99); Mean Platelet Vol. 10.5 fl (6.2-12.0); Monocyte% 4.3 % (0-10); NRBC Flagged by Analyzer 0 % (0-5); Neutrophil # 8.02 X10^3/uL (2.7-7.7); Neutrophil % 69.6 % (47-70); Platelet Count 287 K/mm3 (150-450); RBC Distribution Width CV 12.4 % (11.6-14.6); RBC Distribution Width SD 45.1 fl (35.1-43.9); Red Blood Count 4.71 M/mm3 (4.2-5.4); White Blood Count 11.5 K/mm3 (4.4-11.0)
--- NOTE | 2020-06-01 19:24 | RAD_ITS ---
STUDY: X-RAY CHEST REASON FOR EXAM: Female, 45 years old. sob , fever x1 week. vasquez chills., Pt has been a around a child possible exposed to covid TECHNIQUE: AP COMPARISON: 01/22/2019 FINDINGS: The lungs are clear and expanded. There is no demonstrated pleural abnormality. Normal size heart. Normal mediastinum and galina. Normal visualized pulmonary arteries. Normal visualized aortic arch and descending thoracic aorta. Normal visualized thoracic spine. Normal visualized ribs, clavicles, and shoulders. There is no demonstrated abnormality of the visualized soft tissue structures of the upper abdomen. RAD/Chest 1 View (Portable) IMPRESSION: Normal x-ray examination of the chest. Electronically Signed: Mark Hough MD at 19:55 EDT , Service support ,
[2020-06-01 19:37] LABS: ALB/GLOB Ratio 0.8 RATIO (0.9-2.4); AST(SGOT) 52 U/L (15-37); Alanine Aminotransfer ALT/SGPT 42 U/L (13-56); Albumin, Serum 3.5 g/dL (3.2-5.0); Alkaline Phosphatase 71 U/L (45-117); Anion Gap 7 (5-15); BUN 9 mg/dL (7-18); BUN/Creat Ratio 9.8 RATIO (10-20); Calcium,Total 9.4 mg/dL (8.5-10.1); Chloride 108 mmol/L (98-107); Creatinine, Serum 0.92 mg/dL (0.55-1.02); EST Glomerular Filtration Rate 70 mL/min (>60); Est Glom Filt Rate - Afr Amer 84 mL/min (>60); Estimated Creatinine Clearance 81.75 ml/min; Globulin 4.3 g/dL (2.2-4.2); Glucose 164 mg/dL (74-106); Partial Thromboplast Time 23.2 Seconds (24.1-36.2); Potassium 4.6 mmol/L (3.5-5.1); Protein, Total 7.8 g/dL (6.4-8.2); Prothrombin Time (Protime)PT. 12.4 SECONDS (11.7-14.9); Sodium Level 140 mmol/L (136-145)
[2020-06-01 19:38] LABS: Lactic Acid 1.8 mmol/L (0.4-1.9)
[2020-06-01] MEDS: Morphine 4 MG/ML Syringe IV (20:09)
[2020-06-01 20:23] LABS: Bacteria 0 SEEN /hpf (None Seen); Mucous, Urine 0 SEEN /hpf (<or=2+); Red Blood Cells-Urine 0 SEEN /hpf (0-5)
[2020-06-01] MEDS: proMETHazine 25 MG/ML Syringe 12.5 MG IV (20:26)
[2020-06-01 20:29] LABS: Color, Urine Yellow (Yellow); Glucose, Dipstick Normal (Normal); Ketone-Dipstick Negative (Negative); Leukocyte Esterase-Dipstick 100 /ul (Negative); Nitrite-Dipstick Negative (Negative); Occult Blood-Urine Negative /ul (Negative); Protein-Dipstick Negative (Negative); Specific Gravity, Urine 1.015 (1.002-1.030); Urine Bilirubin Dipstick Negative (Negative); Urine Clarity Sl. Cloudy (Clear); Urine Urobilinogen Normal (Normal)
[2020-06-01 20:34] LABS: Squamous Epithelial Cells - UA 0-5 SEEN /hpf (5-10); White Blood Cells 10-25 SEEN /hpf (0-5)
--- NOTE | 2020-06-01 20:50 | ED.RN ---
pt resting po 94% ra. Pt walked to door and back po 83% on ra
--- NOTE | 2020-06-01 20:51 | ED.RN ---
2nd blood culture not done. Pt refused because she was stuck so many times to get iv in. aware
--- NOTE | 2020-06-01 21:24 | HP.PCM_ITS ---
Problem List (1) Suspected COVID-19 virus infection Status: Acute (2) Morbid obesity Status: Chronic (3) Migraine aura, persistent Status: Acute Qualifiers: Status migrainosus presence: with status migrainosus Intractability: intractable Qualified Code(s): G43.511 - Persistent migraine aura without cerebral infarction, intractable, with status migrainosus (4) Chronic pain syndrome Status: Chronic (5) Acute metabolic encephalopathy Status: Acute (6) Urinary retention with incomplete bladder emptying Status: Chronic (7) Insomnia Status: Chronic (8) Seasonal allergies Status: Chronic Qualifiers: Allergic rhinitis trigger: unspecified Qualified Code(s): J30.2 - Other seasonal allergic rhinitis (9) Anxiety and depression Status: Chronic (10) Back problem Status: Chronic (11) Carpal tunnel syndrome Status: Chronic (12) Diabetes type 2, uncontrolled Status: Chronic (13) Frequent headaches Status: Chronic (14) HTN (hypertension) Status: Chronic (15) Fatty liver Status: Chronic (16) GERD (gastroesophageal reflux disease) Status: Chronic (17) Thyroid disease Status: Chronic (18) Fibromyalgia Status: Chronic (19) ARF (acute renal failure) Status: Acute Qualifiers: Acute renal failure type: unspecified Qualified Code(s): N17.9 - Acute kidney failure, unspecified (20) Depression Status: Chronic Comment: Reports she does not like medications for depression. Reports it has been prescribed at various times by her care providers. No interest in counseling. No suicide thoughts or thoughts of hurting others. (21) Diabetes mellitus Status: Chronic Qualifiers: Diabetes mellitus type: type 2 Comment: Discussed with patient need to check BG consistently and routinely. Showed her how to check correctly along side of finger and how to improve chances of getting blood sample on low dial. She may be a candidate for leslie system,depending on insurance. We discussed importance of routine care and following medication plan. Her level of anxiety significantly reduce by end of appointment. Instructed to check BG in pairs over the next several days . Will obtain medical records History of Present Illness Date of Admission: 06/01/20 Chief Complaint: malaise The patient is a 45 year old F presents with about 1 week history of progressive general malaise. Patient has been taken care of her granddaughter who has also been taken care of by the other grandparents who recently tested positive for COVID-19. The granddaughter has been sick as well though not checked for COVID- 19. Patient has been having general malaise but also shortness of breath, anosmia, dysgeusia, cough. Also complains of chest pain. Presented to the emergency room and was concern for COVID-19 which was checked and results are still pending at the time of this dictation. Patient did have an abscess in her axilla which was opened up at bedside. She was ambulated and pulse ox dropped down to 83% on room air. The hospital service was asked to admit the patient for admission. [] Past Medical History Past Medical History (Chronic Problems): Chronic Problems (Last Reviewed 04/22/18 @ 17:51 by Sofia Wong) Morbid obesity (Chronic) Chronic pain syndrome (Chronic) Urinary retention with incomplete bladder emptying (Chronic) Insomnia (Chronic) Seasonal allergies (Chronic) Anxiety and depression (Chronic) Back problem (Chronic) Carpal tunnel syndrome (Chronic) Diabetes type 2, uncontrolled (Chronic) Frequent headaches (Chronic) HTN (hypertension) (Chronic) Fatty liver (Chronic) GERD (gastroesophageal reflux disease) (Chronic) Thyroid disease (Chronic) Fibromyalgia (Chronic) Depression (Chronic) Reports she does not like medications for depression. Reports it has been prescribed at various times by her care providers. No interest in counseling. No suicide thoughts or thoughts of hurting others. Diabetes mellitus (Chronic) Discussed with patient need to check BG consistently and routinely. Showed her how to check correctly along side of finger and how to improve chances of getting blood sample on low dial. She may be a candidate for leslie system,depending on insurance. We discussed importance of routine care and following medication plan. Her level of anxiety significantly reduce by end of appointment. Instructed to check BG in pairs over the next several days . Will obtain medical records Medical History: Medical History (Last Reviewed 06/01/20 @ 21:[address] Mickey Guardado, DO) MRSA (methicillin resistant Staphylococcus aureus) (Acute) A49.02 x3 Seasonal allergies (Chronic) J30.2 Anxiety and depression (Chronic) F41.8 Back problem (Chronic) M53.9 Carpal tunnel syndrome (Chronic) G56.00 Diabetes type 2, uncontrolled (Chronic) E11.65 Frequent headaches (Chronic) R51 HTN (hypertension) (Chronic) I10 Fatty liver (Chronic) K76.0 GERD (gastroesophageal reflux disease) (Chronic) K21.9 Thyroid disease (Chronic) E07.9 Fibromyalgia (Chronic) M79.7 Allergies hydroxyzine [From Atarax] Allergy (Verified 06/01/20 17:37) Hives Sulfa (Sulfonamide Antibiotics) Allergy (Verified 06/01/20 17:37) Hives raspberry Adverse Reaction (Verified 06/01/20 17:37) Other migarine Home Medications: Ambulatory Orders Medication Instructions Recorded oxybutynin chloride 5 mg tablet 5 mg PO TID 10/15/17 Tizanidine HCl [Zanaflex] 4 mg PO TID 01/18/18 venlafaxine 150 mg 150 mg PO BID cap 04/06/18 capsule,extended release 24 hr Multivit-Min/Iron/Folic/Lutein 1 tab PO DAILY 04/27/18 [Centrum Silver Women Tablet] Topiramate [Topamax] 100 mg PO BID tablet 05/01/18 Glimepiride [Amaryl] 8 mg PO QAM 11/06/18 Dulaglutide [Trulicity] 1.5 mg SQ GOMEZ 01/22/19 Aspirin [Aspirin EC] 81 mg PO DAILY 06/01/20 Atorvastatin Calcium [Lipitor] 40 mg PO DAILY 06/01/20 Levothyroxine Sodium [Synthroid] 300 mcg PO DAILY 06/01/20 Levothyroxine [Synthroid] 25 mcg PO DAILY 06/01/20 Lisinopril 5 mg PO DAILY 06/01/20 Metoprolol Succinate [Toprol Xl] 50 mg PO DAILY 06/01/20 Zolpidem Tartrate [Ambien] 10 mg PO QHS 06/01/20 Surgical History: Surgical History (Last Reviewed 06/01/20 @ 21:[address] Mickey Guardado, DO) H/O hernia repair Z98.890, Z87.19 H/O sinus surgery Z98.890 H/O thyroidectomy Z98.890, E89.0 H/O: Z98.891 History of incision and drainage Z98.890 Hx of appendectomy Z98.890, Z90.49 Hx of cholecystectomy Z98.890, Z90.49 S/P RUTH (total abdominal hysterectomy) Z90.710 S/P bronchoscopy Z98.890 cervical lymph node excision l toe surgery Surgical History: - - Hernia repair, sinus surgery, thyroidectomy, , appendectomy, cholecystectomy, RUTH, cervical lymph node resection. Psychiatric History: Anxiety, Depression RISK MANAGEMENT SPECIALIST History: No pertinent RISK MANAGEMENT SPECIALIST history Smoking Status: Never smoker - *Family History Maternal Family History: Family History (Last Reviewed 06/01/20 @ 21:[address] Mickey Guardado, DO) Mother Arthritis Breast cancer Heart disease Father Heart disease Alcohol abuse Blood clot in vein Sister Anxiety Depression Brother Anxiety History Items: No pertinent history Review of Systems Constitutional: Reports: Malaise, Weakness. Denies: Anorexia, Chills, Fever Eyes: Denies: Blurred vision, Double vision HEENT: Denies: Head Aches, Sinus Congestion, Sinus Drainage Cardiovascular: Reports: Chest Pain. Denies: Edema Respiratory: Reports: Cough, Shortness of Breath Gastrointestinal: Reports: Abdominal Pain, Nausea. Denies: Vomiting Genitourinary: Denies: Dysuria Musculoskeletal: Denies: Joint Pain, Joint Tenderness Skin: Denies: Rash, Wounds Neurological: Denies: Numbness, Tingling, Focal weakness Psychiatric: Reports: Anxiety, Depression Hematologic/ Lymphatic: Denies: Easy Bruising, Easy Bleeding, Hx of blood clot Comment: All review of systems were negative except as mentioned above in the history of present illness and the other review of systems. VTE Information - Inpt Only VTE Present on Admission: No VTE Mechan Device Prophylaxis: None VTE Pharm Prophylaxis ordered?: Yes - Physical Exam Vitals/I&O's: Vital Signs Temp Pulse Resp BP Pulse Ox 36.3 C L 96 22 H 160/93 H 95 06/01/20 20:54 06/01/20 20:54 06/01/20 20:54 06/01/20 20:54 06/01/20 20:54 Oxygen Delivery Method Room Air Weight: 191.87 kg Body Mass Index (BMI) 60.7 Finger Stick Blood Glucose 195 Intake and Output for Last 24 Hours 05/30/20 05/31/20 06/01/20 23:59 23:59 23:59 Intake Total 1000 / 1000 Balance 1000 / 1000 General: Alert, No apparent distress HEENT: Atraumatic, Normocephalic Oral: - - Wearing a mask, did not remove. Neck: No Nodes, Thyroid Normal Size and Texture Lungs: Clear to auscultation, Diminished Cardiovascular: Regular rate, Regular Rhythm, Normal S1, Normal S2, No murmurs Abdomen: Bowel Sounds Present, Soft, Non Tender, Non-Distended, No Hepato- splenomegaly, Obese Extremities: No edema, No Calf Tenderness Skin: No rashes, No breakdown Psych/Mental Status: Normal Affect, Appropriate Laboratory Results 06/01/20 18:00: COVID-19 (TANGELA) Pending 06/01/20 19:10: WBC 11.5 H, RBC 4.71, Hgb 15.3 H, Hct 46.3, MCV 98.3, MCH 32.5 H , MCHC 33.0, RDW Std Deviation 45.1 H, RDW Coeff of Yajaira 12.4, Plt Count 287, MPV 10.5, Immature Gran % (Auto) 0.300, Neut % (Auto) 69.6, Lymph % (Auto) 23.9, [place] % (Auto) 4.3, Eos % (Auto) 1.5, Baso % (Auto) 0.4, Absolute Neuts (auto) 8.0 H, Absolute Lymphs (auto) 2.75, Nucleated RBC % 0 06/01/20 19:10: PT 12.4, INR 1.0, APTT 23.2 L 06/01/20 19:10: Sodium 140, Potassium 4.6, Chloride 108 H, Carbon Dioxide 25.0, Anion Gap 7, BUN 9, Creatinine 0.92, Estim Creat Clear Calc 81.75, Est GFR (MDRD) Af Amer 84, Est GFR (MDRD) Non-Af 70, BUN/Creatinine Ratio 9.8 L, Glucose 164 H, Calcium 9.4, Total Bilirubin 0.60, AST 52 H, ALT 42, Alkaline Phosphatase 71, Troponin I < 0.015, Total Protein 7.8, Albumin 3.5, Globulin 4.3 H, Albumin/Globulin Ratio 0.8 L 06/01/20 19:10: Lactic Acid 1.8 06/01/20 20:15: Urine Color Yellow, Urine Clarity Sl. Cloudy, Urine pH 6.0, Ur Specific [place] 1.015, Urine Protein Negative, Urine Glucose (UA) Normal, Urine Ketones Negative, Urine Occult Blood Negative, Urine Nitrite Negative, Urine Bilirubin Negative, Urine Urobilinogen Normal, Ur Leukocyte Esterase 100 H, Urine RBC 0 SEEN, Urine WBC 10-25 SEEN, Ur Squamous Epith Cells 0-5 SEEN, Urine Bacteria 0 SEEN, Urine Mucus 0 SEEN Chest x-ray reviewed and showed normal airways with no pulmonary vascular congestion. Assessment/Plan All Active Problems (Last Reviewed 04/22/18 @ 17:51 by Sofia Wong) Migraine aura, persistent (Acute) Acute metabolic encephalopathy (Acute) Suspected COVID-19 virus infection (Acute) ARF (acute renal failure) (Acute) 1. Suspected COVID-19 infection: Patient has had symptoms for about a week and was likely exposed to carry her with her grandchild who was exposed by the other grandparents who did past positive for COVID-19. Will start the patient on dexamethasone. Consult infectious disease to see if patient would be a candidate for them to severe in convalescent plasma. Check additional blood work. 2. Axillary abscess: Opened up in the emergency room. Start the patient on Keflex. 3. Diabetes mellitus type 2: Continue with home meds: Glimepiride, Trulicity and also add sliding scale insulin. 4. Morbid obesity: Overall complicates patient's care and patient does have continued respiratory issues may further complicate maintaining adequate oxygenation. 5. VTE prophylaxis: Patient will be on enoxaparin 40 mg twice daily. Patient is in agreement to getting flu vaccine so she will have that administered while she is here. Discussed with the patient significant other at bedside. Advised that he be tested and to self quarantine for the next 10 days. He states that his stepson lives with them who works in a penitentiary. I advised that the stepson contact the penitentiary and get their recommendations about returning to work. Inpatient E&M: [id number] Init Hosp L2
[2020-06-01] MEDS: morphine 8 MG/ML Syringe 6 MG IV (21:49)
--- NOTE | 2020-06-01 22:53 | ED.RN ---
pt decided to leave dr lemuel bee in to speak to pt.
[2020-06-01] MEDS: Cephalexin 500 MG Capsule PO (23:42)
[2020-06-01] MEDS: dexAMETHasone 10 MG/ML Vial IV (23:42)
== END 2020-06-01 23:53 | disposition left against medical advice (07) ==
LOC: ED 18:37 → ICU 23:16
PROVIDERS: Emergency Provider Emergency Medicine; PCP Nurse Practitioner Primary Care
DX: L02.411 Cutaneous abscess of right axilla (principal); R09.02 Hypoxemia; R09.81 Nasal congestion; J02.9 Acute pharyngitis, unspecified; R07.89 Other chest pain; R43.8 Other disturbances of smell and taste; R11.0 Nausea; R19.7 Diarrhea, unspecified; R05 Cough; Z20.828 Contact with and (suspected) exposure to other viral communicable diseases; Z53.21 Procedure and treatment not carried out due to patient leaving prior to being seen by health care provider; I10 Essential (primary) hypertension; E03.9 Hypothyroidism, unspecified; E11.9 Type 2 diabetes mellitus without complications; K21.9 Gastro-esophageal reflux disease without esophagitis; M79.7 Fibromyalgia; E66.01 Morbid (severe) obesity due to excess calories; Z68.44 Body mass index [BMI] 60.0-69.9, adult; G89.4 Chronic pain syndrome; G93.41 Metabolic encephalopathy; F41.9 Anxiety disorder, unspecified; F32.9 Major depressive disorder, single episode, unspecified; G56.00 Carpal tunnel syndrome, unspecified upper limb; K76.0 Fatty (change of) liver, not elsewhere classified; G43.511 Persistent migraine aura without cerebral infarction, intractable, with status migrainosus; Z90.49 Acquired absence of other specified parts of digestive tract; Z79.4 Long term (current) use of insulin; Z79.82 Long term (current) use of aspirin; Z79.899 Other long term (current) drug therapy
CPT/HCPCS: 10060; 71045; 80053; 81001; 83605; 84484; 85025; 85610; 85730; 87040; 87077; 87086; 87088; 87186; 87635; 90471; 93005; 94760; 96361; 96374; 96375; 96376; 99281; 99285; J7030; A4216; J2405; U0003

== ENCOUNTER 2020-06-24 14:52 | Observation (INO) | payer MEDICAID, SELFPAY ==
[2020-06-01 17:32] VITALS: BMI 60.7
[2020-06-24] VITALS (9 sets, daily range): BP systolic 122–161; BP diastolic 56–87; PULSE 94–114; RESP 16–22; TEMP 36.2–36.9; O2SAT 94–100; BMI 60.7; BMI 60.1; BMI 60.2
--- NOTE | 2020-06-24 15:11 | EKG12_ITS ---
Test Reason : SOB Blood Pressure : / mmHG Vent. Rate : 097 BPM Atrial Rate : 097 BPM P-R Int : 156 ms QRS Dur : 096 ms QT Int : 366 ms P-R-T Axes : 000 013 -15 degrees QTc Int : 464 ms Normal sinus rhythm Possible Inferior infarct (cited on or before 01-JUN-2020) Abnormal ECG Confirmed by OSITO PRESSLEY, RETA ([id number]), editor dictionary DONNA WILLIS ([id number]) on 06/26/2020 2:25:32 PM Referred By: JESENIA/BB Confirmed By:RETA MCNEILL MD
--- NOTE | 2020-06-24 15:13 | ED.DCSUM_ITS ---
- ER Visit Summary Date of Service: 06/24/20 Chief Complaint: Shortness of breath [] History of Present Illness: The patient is a 45 F [presents to the emergency department feeling short of breath for the last couple of days. Patient states that she has been actually sick for about a month. She was on an antibiotic called Zithromax. Patient was seen in the ER a week and a half ago and was started on steroids. She complains of fatigue. A week and a half ago she was tested for COVID-19 and was negative. Patient states that her son who lives with her works in a senior care and he is exposed daily to COVID-19. Patient coughing up yellow-green sputum. She had a fever up to 1015 last night. She complains of headache and body ache. Patient states that she has decreased sense of taste. Patient has history of type 2 diabetes, hypertension, obesity, anxiety, and depression.] Physical Examination: [HEENT-PERRLA, EOMI. Cranial nerves II through XII grossly intact. TMs clear. Mucous membranes moist. No adenopathy. Cardiovascular-regular rate and rhythm without murmur or ectopy Lungs-good aeration bilaterally. Patient has some pain expiratory wheezes bilaterally. Patient has rhonchi bilaterally. Mild tachypnea. No accessory muscle use or retractions. Abdomen-normoactive bowel sounds, soft, nontender, no rebound or rigidity, no peritoneal signs. Extremities-intact ?4, normal range of motion, normal pulses, atraumatic] Test Results: [EKG obtained on arrival showed a sinus rhythm with a ventricular rate of 97 bpm with old inferior infarct noted. CBC with differential showed a white count 9.3, hemoglobin 13.8, hematocrit 42, placed 242. Chemistries unremarkable. Troponin was less than 0.015. BNP was 34. D-dimer was 186. COVID-19 test was negative. Chest x-ray was read as normal. CTA of the chest was obtained which was nondiagnostic for PE but there was no evidence of dissection or acute lung abnormality.] Emergency Department Course and Treatment: [IV line established on arrival. Patient was medicated with morphine and Zofran. Because she developed severe abdominal pain while in CT scan due to a coughing fit and her concern for rupturing hernia that had been surgically repaired in the past I did obtain a CT scan of the abdomen pelvis which was unremarkable. Scan was unchanged from approximately a year ago.] Patient case was discussed with hospitalist who asked that I give patient Lovenox subcu and also give patient Decadron IV. Treatment Plan: [Admit] Disposition: [Admit] Impression: [Dyspnea-etiology uncertain Abdominal wall strain ] This note was generated with [employer] dictation software. It may contain incorrect words, spelling, and punctuation that were not noted in review of the chart prior to signing ED Disposition - Plan for ED Patient: Referrals: Lissett Begum NP, RUBBER COVERING MACHINE OPERATOR-C [Primary Care Provider] -
--- NOTE | 2020-06-24 15:30 | RAD_ITS ---
STUDY: X-RAY CHEST REASON FOR EXAM: Female, 45 years old. COUGH, SOB AND NASAL CONGESTION. SON WORKS IN A ECF. S/S X4 DAYS TECHNIQUE: Single AP portable view of the chest. COMPARISON: 06/01/2020 FINDINGS: The lungs are clear and expanded. There is no demonstrated pleural abnormality. Normal size heart. Normal mediastinum and galina. Normal visualized pulmonary arteries. Normal visualized aortic arch and descending thoracic aorta. Normal visualized thoracic spine. Normal visualized ribs, clavicles, and shoulders. There is no demonstrated abnormality of the visualized soft tissue structures of the upper abdomen. RAD/Chest 1 View (Portable) IMPRESSION: Normal x-ray examination of the chest. Electronically Signed: Velasquez Daigle DO at 16:21 EST Tel , Service support ,
[2020-06-24] MEDS: 0.9% Normal Saline 1,000 ML 150 ML IV (16:30)
[2020-06-24 16:51] LABS: Absolute Lymphocyte Count 3.12 X10^3/uL (0.83-4.51); Absolute Neutrophil Count 5.3 X10^3/uL (2.0-7.7); Basophil# 0.04 X10^3/uL; Basophil% 0.4 % (0-1); Eosinophil# 0.23 X10^3/uL; Eosinophils% 2.5 % (0-5); Hematocrit 42.2 % (37-47); Hemoglobin 13.8 g/dL (12.0-15.0); Lymphocyte # 3.12 X10^3/ul (4.0); Lymphocyte % 33.6 % (19-41); Mean Corp Hgb Conc 32.7 g/dL (32-36); Mean Corpuscular Hgb 32.9 pg (27.0-32.0); Mean Corpuscular Volume 100.5 fL (81-99); Mean Platelet Vol. 10.3 fl (6.2-12.0); Monocyte# 0.54 X10^3/uL; Monocyte% 5.8 % (0-10); NRBC Flagged by Analyzer 0 % (0-5); Neutrophil # 5.34 X10^3/uL (2.7-7.7); Neutrophil % 57.6 % (47-70); Platelet Count 242 K/mm3 (150-450); RBC Distribution Width CV 13.2 % (11.6-14.6); RBC Distribution Width SD 48.4 fl (35.1-43.9); White Blood Count 9.3 K/mm3 (4.4-11.0)
[2020-06-24] MEDS: Morphine 4 MG/ML Syringe IV (17:06)
[2020-06-24] MEDS: proMETHazine 25 MG/ML Syringe 12.5 MG IV ×2 (17:06→21:29)
[2020-06-24 17:08] LABS: Anion Gap 8 (5-15); BUN 9 mg/dL (7-18); BUN/Creat Ratio 11.1 RATIO (10-20); Chloride 111 mmol/L (98-107); Creatinine, Serum 0.81 mg/dL (0.55-1.02); EST Glomerular Filtration Rate 81 mL/min (>60); Est Glom Filt Rate - Afr Amer 98 mL/min (>60); Estimated Creatinine Clearance 92.85 ml/min; Glucose 171 mg/dL (74-106); Potassium 3.5 mmol/L (3.5-5.1); Sodium Level 143 mmol/L (136-145)
[2020-06-24 17:09] LABS: BNP,B-Type NATRIURETIC PEPTIDE 34.1 pg/mL (0-100)
[2020-06-24 17:14] LABS: D-Dimer Quantitative (DVT/PE) 0.86 FEU/ug/m (0.27-0.49)
--- NOTE | 2020-06-24 17:15 | CT_ITS ---
STUDY: CTA CHEST REASON FOR EXAM: Female, 45 years old. COUGH,NASAL CONGESTION,SHORT OF BREATH -- HTN -- PT WEIGHT #450 RADIATION DOSAGE (If Supplied By Facility): CTDIvol = ( 19.74 ) mGy, DLP = ( 727.33 ) mGycm TECHNIQUE: The examination was performed with the intravenous administration of IV 100mL [id number]-370. Post-processing of the angiographic images was performed, with multiplanar reformation and 3D reconstruction. Nearly nondiagnostic exam for pulmonary embolism with the contrast bolus in the main pulmonary artery of 144HU Individualized dose optimization techniques were used for this CT. COMPARISON: None. FINDINGS: No evidence of large central pulmonary embolism. No evidence of right heart strain. No evidence of thoracic aortic dissection. Normal thoracic aorta and visualized great vessels. There is no demonstrated aortic dissection. Normal heart and pericardium. Normal mediastinum. Normal hilar regions. Normal visualized trachea and bronchi. The lungs are well expanded. Normal pulmonary parenchyma. Normal pleura. Normal chest wall structures. Normal osseous structures. Normal visualized upper abdomen. CT/CTA Chest W/WO Contrast IMPRESSION: Very limited exam for reasons above. No evidence of large central pulmonary embolism. No evidence of thoracic aortic dissection. No evidence of right heart strain. Lungs are clear. Electronically Signed: Velasquez Daigle DO at 18:17 EST Tel , Service support ,
--- NOTE | 2020-06-24 18:17 | CT_ITS ---
STUDY: CT ABDOMEN AND PELVIS WITHOUT CONTRAST REASON FOR EXAM: Female, 45 years old. RT SIDED ABDOMEN PAIN -- HX:DIABETES,APPENDECTOMY,CHOLECYSTECTOMY,RUTH/BSO. -- HERNIA REPAIR RADIATION DOSAGE (If Supplied By Facility): CTDIvol = ( 24.18 ) mGy, DLP = ( 1322.92 ) mGycm TECHNIQUE: Transaxial images were obtained from the dome of the diaphragm to the symphysis pubis without oral contrast, and without intravenous contrast. Sagittal and coronal images were reconstructed. Individualized dose optimization techniques were used for this CT. COMPARISON: CT abdomen and pelvis dated 11/06/2089 FINDINGS: The visualized lung bases are unremarkable. The visualized portions of the heart are within normal limits. Normal liver. There are surgical clips in the gallbladder fossa consistent with a prior cholecystectomy. Normal spleen. Normal pancreas. Normal bilateral adrenal glands. Normal right kidney. Normal left kidney. Excretory contrast in the kidneys. Normal visualized stomach. Normal small intestine. Normal colon. There is non-visualization of the appendix. Normal abdominal aorta. Normal inferior vena cava. Normal retroperitoneum. Stable periumbilical hernia containing a knuckle of small and large bowel without obstruction. Normal urinary bladder. There is absence of the uterus consistent with a prior hysterectomy. Normal abdominal wall. Normal osseous structures. CT/Abdomen/Pelvis without Cont IMPRESSION: No acute findings. Status post appendectomy and cholecystectomy as well as hysterectomy. Remainder is unchanged Electronically Signed: Velasquez Daigle DO at 19:16 EST Tel , Service support ,
[2020-06-24] MEDS: HYDROmorphone 1 MG/ML Syringe IV (18:56)
--- NOTE | 2020-06-24 19:34 | PCM.HP.STD ---
Problem List (1) Suspected COVID-19 virus infection Status: Acute (2) Morbid obesity Status: Chronic (3) Chronic pain syndrome Status: Chronic (4) Seasonal allergies Status: Chronic Qualifiers: Allergic rhinitis trigger: unspecified Qualified Code(s): J30.2 - Other seasonal allergic rhinitis (5) Anxiety and depression Status: Chronic (6) Diabetes type 2, uncontrolled Status: Chronic Qualifiers: Glycemic state: with hyperglycemia Qualified Code(s): E11.65 - Type 2 diabetes mellitus with hyperglycemia (7) Frequent headaches Status: Chronic (8) HTN (hypertension) Status: Chronic Qualifiers: Hypertension type: essential hypertension Qualified Code(s): I10 - Essential (primary) hypertension (9) GERD (gastroesophageal reflux disease) Status: Chronic Qualifiers: Esophagitis presence: esophagitis presence not specified Qualified Code(s): K21.9 - Gastro-esophageal reflux disease without esophagitis (10) Thyroid disease Status: Chronic (11) Fibromyalgia Status: Chronic History of Present Illness Date of Admission: 06/24/20 Chief Complaint: Fever, cough, body aches, headaches, dyspnea The patient is a 45 y/o F w/ PMHx: Hx Migraines, Morbid Obesity, Chronic pain syndrome/Fibromyalgia following with pain management, Anxiety/Depression/Panic disorder, HTN, HLD, Hypothyroidsim, Diabetes mellitus type II who presents to the [facility] ED on 06/24/20 with history of worsening dyspnea and cough over the last several days but had been sick previously for at least 2 weeks, noted to have been in the ED approximately 1.5 weeks prior to current presentation with initiation of steroids and azithromycin at that time with ongoing significant symptoms with negative Covid testing at prior evaluation with son working in the ECF with exposure to COVID-19 with productive cough of yellow-green sputum, ongoing fevers up to 101.5 the evening prior in addition to frontal throbbing headaches, body aches, nausea, occasional emesis, abdominal cramping, loose stools in addition to decreased sense of taste. She noted while in the CTPA she noted concerned for abdominal pain following cough fit with prior hernia repair which was unremarkable. Work-up in the ED included T 97.1, heart rate 107, BP 154/87, respiratory rate 22, 99% on room air, CBC with WC 9.3, hemoglobin 13.8, platelet 242 without marked shift, D-dimer 0.86, BMP with chloride 111, glucose 171 otherwise not marked appearing, troponin less than 0.015, BNP 34.1, COVID-19 testing negative, blood culture x2 pending per ED, chest x-ray with no acute cardiopulmonary findings, CTPA limited, no evidence of large central PE, no evidence of thoracic aortic dissection, no evidence of right heart strain with otherwise no acute cardiopulmonary findings, CT A/P with evidence of appendectomy as well as cholecystectomy and hysterectomy, no acute intra-abdominal findings otherwise. In the ED patient ministered normal saline, albuterol, morphine, Dilaudid, Phenergan. Patient was ambulated and remained appropriate oxygenation however her HR increased and she appeared dyspneic. Past Medical History Past Medical History (Chronic Problems): Chronic Problems (Last Reviewed 06/01/20 @ 21:[address] Mickey Guardado DO) Morbid obesity (Chronic) Chronic pain syndrome (Chronic) Urinary retention with incomplete bladder emptying (Chronic) Insomnia (Chronic) Seasonal allergies (Chronic) Anxiety and depression (Chronic) Back problem (Chronic) Carpal tunnel syndrome (Chronic) Diabetes type 2, uncontrolled (Chronic) Frequent headaches (Chronic) HTN (hypertension) (Chronic) Fatty liver (Chronic) GERD (gastroesophageal reflux disease) (Chronic) Thyroid disease (Chronic) Fibromyalgia (Chronic) Depression (Chronic) Reports she does not like medications for depression. Reports it has been prescribed at various times by her care providers. No interest in counseling. No suicide thoughts or thoughts of hurting others. Diabetes mellitus (Chronic) Discussed with patient need to check BG consistently and routinely. Showed her how to check correctly along side of finger and how to improve chances of getting blood sample on low dial. She may be a candidate for leslie system,depending on insurance. We discussed importance of routine care and following medication plan. Her level of anxiety significantly reduce by end of appointment. Instructed to check BG in pairs over the next several days . Will obtain medical records Medical History: Medical History (Last Reviewed 06/01/20 @ 21:[address] Mickey Guardado DO) Seasonal allergies (Chronic) J30.2 Anxiety and depression (Chronic) F41.8 Back problem (Chronic) M53.9 Carpal tunnel syndrome (Chronic) G56.00 Diabetes type 2, uncontrolled (Chronic) E11.65 Frequent headaches (Chronic) R51 HTN (hypertension) (Chronic) I10 Fatty liver (Chronic) K76.0 GERD (gastroesophageal reflux disease) (Chronic) K21.9 Thyroid disease (Chronic) E07.9 Fibromyalgia (Chronic) M79.7 Allergies hydroxyzine [From Atarax] Allergy (Verified 06/24/20 15:53) Hives Sulfa (Sulfonamide Antibiotics) Allergy (Verified 06/24/20 15:53) Hives raspberry Adverse Reaction (Verified 06/24/20 15:53) Other migarine Home Medications: Ambulatory Orders Medication Instructions Recorded oxybutynin chloride 5 mg tablet 5 mg PO TID 10/15/17 Tizanidine HCl [Zanaflex] 4 mg PO TID 01/18/18 venlafaxine 150 mg 150 mg PO BID cap 04/06/18 capsule,extended release 24 hr Multivit-Min/Iron/Folic/Lutein 1 tab PO DAILY 04/27/18 [Centrum Silver Women Tablet] Topiramate [Topamax] 100 mg PO BID tablet 05/01/18 Glimepiride [Amaryl] 8 mg PO QAM 11/06/18 Dulaglutide [Trulicity] 1.5 mg SQ GOMEZ 01/22/19 Aspirin [Aspirin EC] 81 mg PO DAILY 06/01/20 Atorvastatin Calcium [Lipitor] 40 mg PO DAILY 06/01/20 Levothyroxine Sodium [Synthroid] 300 mcg PO DAILY 06/01/20 Levothyroxine [Synthroid] 25 mcg PO DAILY 06/01/20 Lisinopril 5 mg PO DAILY 06/01/20 Metoprolol Succinate [Toprol Xl] 50 mg PO DAILY 06/01/20 Zolpidem Tartrate [Ambien] 10 mg PO QHS 06/01/20 Surgical History: Surgical History (Last Reviewed 06/01/20 @ 21:[address] Mickey Guardado, DO) H/O hernia repair Z98.890, Z87.19 H/O sinus surgery Z98.890 H/O thyroidectomy Z98.890, E89.0 H/O: Z98.891 History of incision and drainage Z98.890 Hx of appendectomy Z98.890, Z90.49 Hx of cholecystectomy Z98.890, Z90.49 S/P RUTH (total abdominal hysterectomy) Z90.710 S/P bronchoscopy Z98.890 cervical lymph node excision l toe surgery Surgical History: - - Hernia repair x 6, sinus surgery, thyroidectomy, , appendectomy, cholecystectomy, RUTH, cervical lymph node resection. 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 Mickey Guardado DO) Mother Arthritis Breast cancer Heart disease Father Heart disease Alcohol abuse Blood clot in vein Sister Anxiety Depression Brother Anxiety History Items: Cancer, Heart Disease Paternal Family History: Family History (Last Reviewed 06/01/20 @ 21:[address] Mickey Guardado DO) Mother Arthritis Breast cancer Heart disease Father Heart disease Alcohol abuse Blood clot in vein Sister Anxiety Depression Brother Anxiety History Items: Heart Disease, - - Hx VTE. Review of Systems Constitutional: Reports: Anorexia, Chills, Fever, Malaise, Weakness, Fatigue. Denies: Weight Change HEENT: Reports: Head Aches, Nasal Congestion, Sore Throat. Denies: Sinus Congestion, Sinus Drainage Cardiovascular: Denies: Chest Pain, Chest Pressure, Chest Tightness, Light Headedness, Orthopnea, Palpitations, Syncope Respiratory: Reports: Cough, Pleuritic Pain, Shortness of Breath, Shortness of breath at rest, Shortness of breath upon exertion, Sputum production, Wheezing Gastrointestinal: Reports: Abdominal Pain, Diarrhea, Nausea, Vomiting Genitourinary: Denies: Dysuria Musculoskeletal: Reports: Back Pain, Joint Pain, Muscle pain. Denies: Joint Tenderness Skin: Denies: Rash, Wounds Neurological: Denies: Numbness, Tingling, Focal weakness Psychiatric: Reports: Anxiety, Depression. Denies: Homicidal Ideations, Suicidal Ideations Hematologic/ Lymphatic: Denies: Easy Bruising, Easy Bleeding VTE Information - Inpt Only VTE Present on Admission: No VTE Mechan Device Prophylaxis: SCD's VTE Pharm Prophylaxis ordered?: Yes Subjective: Seated upright in the ED bed, fatigued appearance, no obvious respiratory distress however. Objective: Physical Examination: General: awake, alert, oriented x 3 and cooperative, seated upright in the ED bed, fatigued appearance, no obvious distress. Skin: normal color, turgor, no icterus, cyanosis. HEENT: AT/NC, EOMI, PERRLA, MMM, no carotid bruits or JVD noted; however, habitus with thickened neck makes examination difficult. Lungs: Diminished breath sounds, greater bases, no evidence of distress, moderate effort, resolved prior noted ED initial evaluation of wheezing, no rales or rhonchi. Heart: Tachycardic with regular rhythm; no gallop, rub audible. Abdomen: soft, morbidly obese, generalized discomfort with palpation, ND, mildly hyperactive BS, no obvious HSM; however, habitus makes examination difficult. Extremities: no cyanosis, clubbing, or edema, no discomfort palpation of the lower extremities. Neurological: patient awake, alert, oriented x 3; cognitive function intact; pupils equally reactive to light and accomodation; cranial nerves II-XII grossly normal, moving all 4 extremities, no focal deficits, strength moderately global decrease secondary to acute presentation. Psychiatric: affect appears mildly fatigued otherwise normal, no acute evidence of depressive or anxiety feelings. - Physical Exam Vitals/I&O's: Vital Signs Temp Pulse Resp BP Pulse Ox 98.4 F 108 H 16 122/60 H 94 06/24/20 19:23 06/24/20 19:23 06/24/20 19:23 06/24/20 19:23 06/24/20 19:23 Oxygen Delivery Method Room Air Weight: 423 lb Body Mass Index (BMI) 60.7 Finger Stick Blood Glucose 195 Laboratory Results 06/24/20 15:21: COVID-19 (TANGELA) Not Detected 06/24/20 16:30: WBC 9.3, RBC 4.20, Hgb 13.8, Hct 42.2, MCV 100.5 H, MCH 32.9 H, MCHC 32.7, RDW Std Deviation 48.4 H, RDW Coeff of Yajaira 13.2, Plt Count 242, MPV 10.3, Immature Gran % (Auto) 0.100, Neut % (Auto) 57.6, Lymph % (Auto) 33.6, Weston % (Auto) 5.8, Eos % (Auto) 2.5, Baso % (Auto) 0.4, Absolute Neuts (auto) 5.3, Absolute Lymphs (auto) 3.12, Nucleated RBC % 0 06/24/20 16:30: D-Dimer Quant (PE/DVT) 0.86 H* 06/24/20 16:30: Sodium 143, Potassium 3.5, Chloride 111 H, Carbon Dioxide 24.0, Anion Gap 8, BUN 9, Creatinine 0.81, Estim Creat Clear Calc 92.85, Est GFR (MDRD) Af Amer 98, Est GFR (MDRD) Non-Af 81, BUN/Creatinine Ratio 11.1, Glucose 171 H, Calcium 9.0, Troponin I < 0.015 06/24/20 16:30: B-Natriuretic Peptide 34.1 Current Medications Sodium Chloride () 1,000 mls @ 150 mls/hr IV .Q6H40M ONE Stop: 06/24/20 21:50 Last Admin: 06/24/20 16:30 Dose: 150 mls/hr Documented by: Assessment/Plan All Active Problems (Last Reviewed 06/01/20 @ 21:[address] Mickey Guardado, DO) Migraine aura, persistent (Acute) Acute metabolic encephalopathy (Acute) Suspected COVID-19 virus infection (Acute) Hypoxia (Acute) Abscess of right axilla (Acute) ARF (acute renal failure) (Acute) The patient is a 45 y/o F w/ PMHx: Hx Migraines, Morbid Obesity, Chronic pain syndrome/Fibromyalgia following with pain management, Anxiety/Depression/Panic disorder, HTN, HLD, Hypothyroidsim, Diabetes mellitus type II who presents to the [facility] ED on 06/24/20 with history of >2 weeks of COVID type symptoms with ED evaluation and attempted admission with AMA status, now worsening with ongoing dyspnea, productive cough of yellow-green sputum, ongoing fevers up to 101.5 the evening prior in addition to frontal throbbing headaches, body aches, nausea, occasional emesis, abdominal cramping, loose stools in addition to decreased sense of taste. 1. Acute Dyspnea, Cough, Fever secondary to clinically suspected Acute Viral Syndrome, COVID-19 versus alternate Viral Bronchitis: Patient with negative Covid testing x 2 and CTPA not marked appearing but poor image; however, symptoms and COVID contact history concerning for coronavirus, thus to be cautious will admit to the COVID unit, will maintain on oxygen with wean as tolerated to room air, PRN albuterol, maintain on IV decadron given wheezing and prior episodes of hypoxia upon recent presentation, not currently but wheezing noted in the ED initially also, HOB, IS parameters w/ pending sputum cultures, respiratory viral panel in case of alternate viral infection and urine antigens, will obtain procalcitonin, CRP, CPK, Ferritin, LDH, Alk phos/AST/ALT, continue supportive care including q 2 hour turning, request infectious disease consultation. CTPA as noted poor imaging, will obtain BL LE duplex US to be cautious and in the interim continue therapeutic lovenox given elevated dimer. 2. Chronic pain syndrome/chronic back pain/fibromyalgia: We will continue patient home Zanaflex regimen cautiously given acute presentation, hold if sedate. 3. Hypertension: Continue home regimen including lisinopril, metoprolol with hold parameters, PRN hydralazine. 4. Hyperlipidemia: Continue home statin regimen. 5. Chronic migraines: We will continue patient home Topamax regimen. 6. Diabetes mellitus type II: Hold oral home regimen, ADA diet, accu checks w/ ISS. 7. Anxiety depression/panic disorder: We will continue patient home venlafaxine regimen. 8. Hypothyroidism: Continue home synthroid regimen. 9. DVT prophylaxis: SCDs, Lovenox. 10. CODE status: Patient does not have healthcare primary contract attorney nor living will in place however given patient presentation with possible Covid discussed CODE status at length including difference between FULL code, DNR-CCA and DNR-CC status. Following discussions about the differences in these status, requested Full Code status. Advanced Care Planning Face to Face Time: 16 minutes. OBSV E&M: 04830 Initial observation care L3 Procedures: [id number] Advncd Care Plan 30 Min
--- NOTE | 2020-06-24 20:26 | VDLE_ITS ---
Reason For Study: Pain RIGHT LEFT GSV is normal. GSV is normal. Right CFV and SFJ are patent, visualized with Left CFV and SFJ are patent, visualized with color flow only. color flow only. Right FV is compressible, distal FV Left FV is compressible, distal FV visualized visualized with color only. with color only. Right PopV is compressible. Left PopV is compressible. T/P Trunk is compressible. T/P Trunk is compressible. PTV is compressible. PTV is compressible. RT PerV is compressible. LT PerV is compressible. Procedure This is a venous duplex using B-mode, color flow and spectral Doppler. Exam performed portable in patient room. The exam was abbreviated due to the COVID 19 protocol. Pt unable to tolerate compressions bilaterally at CFV, SFJ and FV distal. A preliminary report was called and/or faxed to MS2 RN. Interpretation Summary No evidence for acute deep venous thrombosis bilateral lower extremities with patent and compressible bilateral great saphenous veins. COVID-19 protocol Notice the limitations of the examination as the patient was unable to tolerate compression of bilateral common femoral and distal femoral and saphenofemoral junction Ordering Physician: Shania Jade Referring Physician: Lissett Begum Performed By: Mily Grubbs RVT
[2020-06-24 21:05] LABS: Ferritin 85 ng/mL (8-252); LDH 202 U/L (84-246); Magnesium 1.6 mg/dL (1.6-2.6)
[2020-06-24] MEDS: Acetaminophen 325 MG Tablet 650 MG PO (21:22)
[2020-06-24] MEDS: oxyCODONE 5 MG Tablet 10 MG PO (21:22)
[2020-06-24] MEDS: Topiramate 100 MG Tablet PO (21:28)
[2020-06-24] MEDS: Venlafaxine XR 150 MG Capsule PO (21:28)
[2020-06-24] MEDS: Oxybutynin 5 MG Tablet PO (21:28)
[2020-06-24] MEDS: tiZANidine HCl 2 MG Tablet 4 MG PO (21:28)
[2020-06-24] MEDS: dexAMETHasone 10 MG/ML Vial IV (21:30)
[2020-06-24] MEDS: Enoxaparin 150 MG/ML Syringe SC (21:30)
[2020-06-24] MEDS: Insulin Lispro 100 UNIT/ML INSULN.PEN SC (21:58)
[2020-06-24] MEDS: Zolpidem Tartrate 5 MG Tablet PO (21:59)
[2020-06-24 22:10] LABS: Bedside Glucose 183 mg/dL (70-110)
[2020-06-24] MEDS: HYDROmorphone 0.5 MG/0.5 ML SYRINGE IV (23:18)
[2020-06-25] VITALS (9 sets, daily range): BP systolic 97–139; BP diastolic 58–84; PULSE 84–108; RESP 18; TEMP 36.6–36.9; O2SAT 96–98
[2020-06-25] MEDS: LORazepam 0.5 MG Tablet PO (00:15)
--- NOTE | 2020-06-25 00:15 | NURSING ---
Pt requesting fan on admission. Explained to pt that fans were not permitted on the covid floor. Pt requested to speak to a supervisory examiner as she needed her fan due to her anxiety and she has a fan to sleep every night. Pt stated if she could not have a fan to sleep she would 'have to leave the hospital'. This nurse turned the heat down in her room to try and make her as comfortable as possible. Spoke with supervisory examiner who confirmed policy and also stated there were no available fans at this time. Dr Jade called and advised pt may leave AMA due to not being able to have a fan. Reported back to patient after conversation with supervisory examiner. Again explained rationale for the policy. Pt did not state she was going to leave at this time and later called nurses to request Ativan as she could not have her fan. Same ordered x [address] Jade.
[2020-06-25] MEDS: oxyCODONE 5 MG Tablet 10 MG PO ×3 (02:53→13:27)
[2020-06-25] MEDS: HYDROmorphone 0.5 MG/0.5 ML SYRINGE IV ×3 (03:26→13:28)
[2020-06-25] MEDS: Oxybutynin 5 MG Tablet PO ×3 (05:59→21:33)
[2020-06-25] MEDS: tiZANidine HCl 2 MG Tablet 4 MG PO ×3 (05:59→21:33)
[2020-06-25] MEDS: Insulin Lispro 100 UNIT/ML INSULN.PEN SC ×4 (06:02→21:41)
[2020-06-25 06:16] LABS: Bedside Glucose 448 mg/dL (70-110)
[2020-06-25 06:59] LABS: Absolute Lymphocyte Count 0.49 X10^3/uL (0.83-4.51); Absolute Neutrophil Count 6.5 X10^3/uL (2.0-7.7); Basophil# 0.02 X10^3/uL; Basophil% 0.3 % (0-1); Hematocrit 40.2 % (37-47); Lymphocyte # 0.49 X10^3/ul (4.0); Lymphocyte % 6.9 % (19-41); Mean Corp Hgb Conc 32.3 g/dL (32-36); Mean Corpuscular Hgb 32.5 pg (27.0-32.0); Mean Corpuscular Volume 100.5 fL (81-99); Mean Platelet Vol. 10.8 fl (6.2-12.0); Monocyte% 1.4 % (0-10); NRBC Flagged by Analyzer 0 % (0-5); Neutrophil # 6.45 X10^3/uL (2.7-7.7); Neutrophil % 91.1 % (47-70); POSITIVE DIFFERENTIAL YES; Platelet Count 220 K/mm3 (150-450); RBC Distribution Width CV 13.2 % (11.6-14.6); RBC Distribution Width SD 49.1 fl (35.1-43.9); White Blood Count 7.1 K/mm3 (4.4-11.0)
[2020-06-25 07:01] LABS: Differential Indicated SCAN CRITERIA MET
[2020-06-25 07:19] LABS: Differential Comment SCANNED
--- NOTE | 2020-06-25 07:28 | PN_ITS ---
Patient Problems: Active and Suspected Problems (Last Reviewed 06/01/20 @ 21:[address] Mickey Guardado, DO) Suspected COVID-19 virus infection (Acute) Reason for Visit: Acute viral syndrome Subjective: Patient is a 45-year-old lady admitted with Fever, cough, body aches, headaches, dyspnea and assessment of suspected acute viral syndrome made admitted to regular nursing floor for further management. Patient COVID-19 assay came back negative. She had apparently been tested 2 weeks prior which was also negative. Objective: GENERAL: cooperative HEENT: Atraumatic; EYES; Anicteric, Normal Conjunctiva NECK; supple, normal thyroid, RESPIRATORY: Diminished to auscultation CARDIOVASCULAR: Regular S1 S2, GI: soft, normoactive bowel sounds, : No Renal angle tenderness; EXTREMITIES: No edema, no clubbing, MUSCULOSKELETAL: no muscle waisting NEURO: Awake; no lateralizing signs. SKIN: No Rash PSYCH; Flat affect Vitals/I&O's: Vital Signs Temp Pulse Resp BP Pulse Ox 97.9 F 108 H 18 124/71 H 98 06/25/20 03:22 06/25/20 06:03 06/25/20 03:22 06/25/20 03:22 06/25/20 03:22 Oxygen Delivery Method Room Air Weight: 190.4 kg Body Mass Index (BMI) 60.1 Finger Stick Blood Glucose 195 Intake and Output for Last 24 Hours 06/23/20 06/24/20 06/25/20 23:59 23:59 23:59 Intake Total 887.5 / 887.5 Balance 887.5 / 887.5 Microbiology Past 72 Hours 06/24/20 23:53 Urine, Clean Catch Legionella Antigen - Final 06/24/20 23:53 Urine, Clean Catch Streptococcus pneumoniae Antigen (M - Final 06/24/20 15:21 Mucosa - Nasopharyngeal Respiratory Panel (PCR) - Final Rhinovirus Laboratory Results 06/24/20 15:21: COVID-19 (TANGELA) Not Detected 06/24/20 16:30: WBC 9.3, RBC 4.20, Hgb 13.8, Hct 42.2, MCV 100.5 H, MCH 32.9 H, MCHC 32.7, RDW Std Deviation 48.4 H, RDW Coeff of Yajaira 13.2, Plt Count 242, MPV 10.3, Immature Gran % (Auto) 0.100, Neut % (Auto) 57.6, Lymph % (Auto) 33.6, [place] % (Auto) 5.8, Eos % (Auto) 2.5, Baso % (Auto) 0.4, Absolute Neuts (auto) 5.3, Absolute Lymphs (auto) 3.12, Nucleated RBC % 0 06/24/20 16:30: D-Dimer Quant (PE/DVT) 0.86 H* 06/24/20 16:30: Sodium 143, Potassium 3.5, Chloride 111 H, Carbon Dioxide 24.0, Anion Gap 8, BUN 9, Creatinine 0.81, Estim Creat Clear Calc 92.85, Est GFR (MDRD) Af Amer 98, Est GFR (MDRD) Non-Af 81, BUN/Creatinine Ratio 11.1, Glucose 171 H, Calcium 9.0, Troponin I < 0.015 06/24/20 16:30: B-Natriuretic Peptide 34.1 06/24/20 16:30: Procalcitonin 0.20 H 06/24/20 20:10: Magnesium 1.6, Ferritin 85, Lactate Dehydrogenase 202, C-React Prot Ext Range 10.10 H 06/24/20 21:42: POC Glucose 183 H 06/25/20 06:01: POC Glucose 448 H 06/25/20 06:19: WBC 7.1, RBC 4.00 L, Hgb 13.0, Hct 40.2, MCV 100.5 H, MCH 32.5 H , MCHC 32.3, RDW Std Deviation 49.1 H, RDW Coeff of Yajaira 13.2, Plt Count 220, MPV 10.8, Immature Gran % (Auto) 0.300, Neut % (Auto) 91.1 H, Lymph % (Auto) 6.9 L, [place] % (Auto) 1.4, Eos % (Auto) 0.0, Baso % (Auto) 0.3, Absolute Neuts (auto) 6.5, Absolute Lymphs (auto) 0.49 L, Nucleated RBC % 0, Differential Comment SCANNED 06/25/20 06:19: Sodium Pending, Potassium Pending, Chloride Pending, Carbon Dioxide Pending, Anion Gap Pending, BUN Pending, Creatinine Pending, Est GFR (MDRD) Af Amer Pending, Est GFR (MDRD) Non-Af Pending, BUN/Creatinine Ratio Pending, Glucose Pending, Calcium Pending, Total Bilirubin Pending, AST Pending, ALT Pending, Alkaline Phosphatase Pending, Total Protein Pending, Albumin Pending Current Medications Acetaminophen (Acetaminophen 325 Mg Tablet) 650 mg PO Q6H PRN PRN PRN Reason: Pain Score 1-10/Temp > 100.7 F Last Admin: 06/24/20 21:22 Dose: 650 mg Documented by: Al Hydroxide/Mg Hydroxide (Mag Hydrox/Al Hydrox/Simeth 30 Ml Udc) 30 ml PO Q6H PRN PRN PRN Reason: Gastric Burning Albuterol Sulfate (Albuterol Ih 8.5 Gm (Proair) Inhaler (200 Puffs)) 4 - 8 puff INHALATION Q4H PRN PRN PRN Reason: Dyspnea, wheezing Albuterol Sulfate (Albuterol Ih 8.5 Gm (Proair) Inhaler (200 Puffs)) 4 puff INHALATION Q4H [facility] Last Admin: 06/25/20 03:29 Dose: 4 puff Documented by: Aspirin (Aspirin E.C. 81 Mg Tablet) 81 mg PO DAILY [facility] Atorvastatin Calcium (Atorvastatin Calcium 40 Mg Tablet) 40 mg PO DAILY [facility] Dexamethasone Sodium Phosphate (Dexamethasone 4 Mg/Ml Vial) 6 mg IV Q24 [facility] Enoxaparin Sodium (Enoxaparin 100 Mg/Ml Syringe) 190 mg SC BID [facility] Guaifenesin (Guaifenesin 10 Ml Udc (200mg/10ml)) 20 ml PO Q4H PRN PRN PRN Reason: COUGH Hydralazine HCl (Hydralazine 20 Mg/Ml Vial) 10 mg IV Q4H PRN PRN PRN Reason: SBP > 160 Hydromorphone HCl (Hydromorphone 0.5 Mg/0.5 Ml Syringe) 0.5 mg IV Q4H PRN PRN PRN Reason: Pain Score 6-10 Last Admin: 06/25/20 03:26 Dose: 0.5 mg Documented by: Insulin Human Lispro (Insulin Lispro 100 Unit/Ml Insuln.Pen) 0 unit SC [facility]; Protocol Last Admin: 06/25/20 06:02 Dose: 7 unit Documented by: Insulin Lispro Protam/Lispro Human (Insulin Human 75/25 Kwickpen) 40 unit SC BID [facility] Levothyroxine Sodium (Levothyroxine 150 Mcg Tablet) 300 mcg PO DAILY [facility] Levothyroxine Sodium (Levothyroxine 25 Mcg Tablet) 25 mcg PO DAILY [facility] Lisinopril (Lisinopril 5 Mg Tablet) 5 mg PO DAILY [facility] Magnesium Hydroxide (Magnesium Hydroxide 30 Ml Udc) 30 ml PO DAILY PRN PRN PRN Reason: Constipation Metoprolol Succinate (Metoprolol(Xl)Succ 50 Mg Tablet) 50 mg PO DAILY [facility] Nutritional Formula (Lactose Free) (Glucerna Shake 120 Ml Liquid) 120 ml PO TIDCM [facility] Oxybutynin Chloride (Oxybutynin 5 Mg Tablet) 5 mg PO TID [facility] Last Admin: 06/25/20 05:59 Dose: 5 mg Documented by: Oxycodone HCl (Oxycodone 5 Mg Tablet) 10 mg PO Q4H PRN PRN PRN Reason: Pain Score 4-5 Last Admin: 06/25/20 02:53 Dose: 10 mg Documented by: Promethazine HCl (Promethazine 25 Mg/Ml Syringe) 12.5 mg IV Q4H PRN PRN PRN Reason: NAUSEA/VOMITING Last Admin: 06/24/20 21:29 Dose: 12.5 mg Documented by: Psyllium Hydrophilic Mucilloid (Psyllium 1 Packet) 1 packet PO DAILY PRN PRN PRN Reason: Constipation Senna/Docusate Sodium (Senna/Docusate Sodium 1 Tablet) 2 tablet PO BID PRN PRN PRN Reason: Constipation Sodium Chloride (0.9% Saline Lock 10 Ml Syringe) 10 - 40 ml IV UD PRN PRN Reason: SALINE FLUSH Throat Lozenges (Benzocaine/Menthol 1 Lozenge) 1 lozenge MUCOUS MEM Q2H PRN PRN PRN Reason: SORE THROAT Tizanidine HCl (Tizanidine Hcl 2 Mg Tablet) 4 mg PO TID [facility] Last Admin: 06/25/20 05:59 Dose: 4 mg Documented by: Topiramate (Topiramate 100 Mg Tablet) 100 mg PO BID [facility] Last Admin: 06/24/20 21:28 Dose: 100 mg Documented by: Venlafaxine HCl (Venlafaxine Xr 150 Mg Capsule) 150 mg PO BID [facility] Last Admin: 06/24/20 21:28 Dose: 150 mg Documented by: Zolpidem Tartrate (Zolpidem Tartrate 5 Mg Tablet) 5 mg PO QHS PRN PRN Reason: SLEEP Last Admin: 06/24/20 21:59 Dose: 5 mg Documented by: STROKE Vital Signs/Narrative: Vital Signs Pulse 06/25/20 06:03 108 H Medical Necessity - Tobacco Use Smoking Status: Never smoker Tobacco Use: Non-smoker Assessment/Plan All Active Problems (Last Reviewed 06/01/20 @ 21:[address] Mickey Guardado, DO) Migraine aura, persistent (Acute) Acute metabolic encephalopathy (Acute) Suspected COVID-19 virus infection (Acute) Hypoxia (Acute) Abscess of right axilla (Acute) ARF (acute renal failure) (Acute) Patient is a 45-year-old lady admitted with Fever, cough, body aches, headaches, dyspnea and assessment of suspected acute viral syndrome made admitted to [facility] floor for further management. Patient COVID-19 assay came back negative. She had apparently been tested 2 weeks prior which was also negative. 1. Viral syndrome with high suspicion for COVID-19 infection -[facility] placed in droplet and contact isolation with consultation placed to ID 2. Diabetes mellitus type II - Controlled/uncontrolled, -patient's oral hypoglycemics held. -Placed on long-acting insulin in addition to Accu-Cheks a.c. and at bedtime and covered with sliding scale insulin 3. Hypothyroidism - Patient is on levothyroxine home dose continued 4. Hypertension - Blood pressure controlled, home medications continued with dose adjustment as needed 5. Dyslipidemia -Patient is on statin therapy, continued at home dose 6. Chronic migraines ?Patient is on Topamax at home did continue 7. Depression with anxiety ?Patient is on SNRI did continue 8. Fibromyalgia -with chronic pain syndrome 11. Paraumbilical hernia Did discuss with patient to follow-up with PCP for subsequent referral to general surgery for possible repair 10. Morbid obesity - With a BMI of 60 patient was counseled on weight reduction 11. DVT prophylaxis ?Lovenox dose adjusted for weight Inpatient E&M: 63936 Subs Hosp L2
[2020-06-25 07:30] LABS: ALB/GLOB Ratio 0.8 RATIO (0.9-2.4); AST(SGOT) 38 U/L (15-37); Alanine Aminotransfer ALT/SGPT 40 U/L (13-56); Albumin, Serum 3.1 g/dL (3.2-5.0); Alkaline Phosphatase 69 U/L (45-117); Anion Gap 12 (5-15); BUN 11 mg/dL (7-18); BUN/Creat Ratio 9.6 RATIO (10-20); Calcium,Total 8.4 mg/dL (8.5-10.1); Chloride 106 mmol/L (98-107); Creatinine, Serum 1.15 mg/dL (0.55-1.02); EST Glomerular Filtration Rate 54 mL/min (>60); Est Glom Filt Rate - Afr Amer 65 mL/min (>60); Globulin 3.8 g/dL (2.2-4.2); Glucose 439 mg/dL (74-106); Potassium 4.1 mmol/L (3.5-5.1); Protein, Total 6.9 g/dL (6.4-8.2); Sodium Level 136 mmol/L (136-145)
[2020-06-25] MEDS: Aspirin E.C. 81 MG Tablet PO (08:31)
[2020-06-25] MEDS: Venlafaxine XR 150 MG Capsule PO ×2 (08:31→21:33)
[2020-06-25] MEDS: Metoprolol(XL)Succ 50 MG Tablet PO (08:32)
[2020-06-25] MEDS: Levothyroxine 150 MCG Tablet 300 MCG PO (08:32)
[2020-06-25] MEDS: Lisinopril 5 MG Tablet PO (08:32)
[2020-06-25] MEDS: Topiramate 100 MG Tablet PO ×2 (08:32→21:32)
[2020-06-25] MEDS: Atorvastatin Calcium 40 MG Tablet PO (08:33)
[2020-06-25] MEDS: dexAMETHasone 4 MG/ML Vial 6 MG IV (08:33)
[2020-06-25] MEDS: 0.9% Saline Lock 10 ML Syringe IV ×5 (08:35→22:28)
[2020-06-25] MEDS: proMETHazine 25 MG/ML Syringe 12.5 MG IV ×3 (08:37→22:28)
[2020-06-25] MEDS: Enoxaparin 100 MG/ML Syringe 190 MG SC (08:43)
[2020-06-25] MEDS: Insulin Human 75/25 Kwickpen 40 UNIT SC (08:46)
[2020-06-25] MEDS: Levothyroxine 25 MCG TABLET PO (08:48)
[2020-06-25 11:35] LABS: Bedside Glucose 437 mg/dL (70-110)
[2020-06-25] MEDS: guaiFENesin 10 ML UDC (200MG/10ML) 20 ML PO ×2 (15:31→21:47)
--- NOTE | 2020-06-25 16:11 | DCINST_ITS ---
- Discharge Diagnoses Current Active Problems: Current Active and Chronic Problems (Last Reviewed 06/01/20 @ 21:[address] Mickey Guardado, DO) Morbid obesity (Chronic) Chronic pain syndrome (Chronic) Suspected COVID-19 virus infection (Acute) Seasonal allergies (Chronic) Anxiety and depression (Chronic) Diabetes type 2, uncontrolled (Chronic) Frequent headaches (Chronic) HTN (hypertension) (Chronic) GERD (gastroesophageal reflux disease) (Chronic) Thyroid disease (Chronic) Fibromyalgia (Chronic) You will use the following diet at home:: Calorie/Carbohydrate Controlled (specify 1200, 1400, etc) - 1800 Your food should be the consistency of: Regular Discharge Activity: Return to Normal Activity Allergies/Adverse Reactions: Allergies hydroxyzine [From Atarax] Allergy (Verified 06/24/20 15:53) Hives Sulfa (Sulfonamide Antibiotics) Allergy (Verified 06/24/20 15:53) Hives raspberry Adverse Reaction (Verified 06/24/20 15:53) Other migarine Medications to take at Discharge oxybutynin chloride 5 mg tablet 5 mg PO TID 10/15/17 Tizanidine HCl [Zanaflex] 4 mg PO TID 01/18/18 venlafaxine 150 mg capsule,extended release 24 hr 150 mg PO BID cap 04/06/18 Multivit-Min/Iron/Folic/Lutein [Centrum Silver Women Tablet] 1 tab PO DAILY 04/27/18 Topiramate [Topamax] 100 mg PO BID tablet 05/01/18 Glimepiride [Amaryl] 8 mg PO QAM 11/06/18 Dulaglutide [Trulicity] 1.5 mg SQ GOMEZ 01/22/19 Aspirin [Aspirin EC] 81 mg PO DAILY 06/01/20 Atorvastatin Calcium [Lipitor] 40 mg PO DAILY 06/01/20 Levothyroxine Sodium [Synthroid] 300 mcg PO DAILY 06/01/20 Levothyroxine [Synthroid] 25 mcg PO DAILY 06/01/20 Lisinopril 5 mg PO DAILY 06/01/20 Metoprolol Succinate [Toprol Xl] 50 mg PO DAILY 06/01/20 Zolpidem Tartrate [Ambien] 10 mg PO QHS 06/01/20 Insulin Lispro Mix 75-25 Kwkpn 40 units SC BID 06/24/20 Primary Care Physician: Lissett Begum ADVERTISING AGENCY MANAGER, ADVERTISING AGENCY MANAGER-C [Primary Care Provider] - Please follow up with your Primary Care Physician in: in 1 week Test Results: Test results from this visit will be discussed in further detail at your follow- up appointment, if applicable. Proposed Discharge Date: 06/25/20
--- NOTE | 2020-06-25 16:13 | DS.PCM_ITS ---
Discharge Date and Diagnosis Date of Admission: 06/24/20 Date of Discharge: 06/25/20 - Primary Discharge Diagnosis Acute Problems: Rhinovirus Infection - Secondary Discharge Diagnosis Chronic Problems: Chronic Problems (Last Reviewed 06/01/20 @ 21:[address] Mickey Guardado, DO) Morbid obesity (Chronic) Chronic pain syndrome (Chronic) Urinary retention with incomplete bladder emptying (Chronic) Insomnia (Chronic) Seasonal allergies (Chronic) Anxiety and depression (Chronic) Back problem (Chronic) Carpal tunnel syndrome (Chronic) Diabetes type 2, uncontrolled (Chronic) Frequent headaches (Chronic) HTN (hypertension) (Chronic) Fatty liver (Chronic) GERD (gastroesophageal reflux disease) (Chronic) Thyroid disease (Chronic) Fibromyalgia (Chronic) Depression (Chronic) Reports she does not like medications for depression. Reports it has been prescribed at various times by her care providers. No interest in counseling. No suicide thoughts or thoughts of hurting others. Diabetes mellitus (Chronic) Discussed with patient need to check BG consistently and routinely. Showed her how to check correctly along side of finger and how to improve chances of getting blood sample on low dial. She may be a candidate for leslie system,depending on insurance. We discussed importance of routine care and following medication plan. Her level of anxiety significantly reduce by end of appointment. Instructed to check BG in pairs over the next several days . Will obtain medical records Hospital Course and Treatment Operations: None Summary of Care Provided: The patient is a 45 year old F [] - Physical Exam Vitals/I&O's: Vital Signs Temp Pulse Resp BP Pulse Ox 97.9 F 84 18 97/58 L 98 06/25/20 15:00 06/25/20 15:00 06/25/20 15:00 06/25/20 15:00 06/25/20 15:00 Oxygen Delivery Method Room Air Weight: 190.4 kg Body Mass Index (BMI) 60.1 Finger Stick Blood Glucose 195 Intake and Output for Last 24 Hours 06/23/20 06/24/20 06/25/20 23:59 23:59 23:59 Intake Total 887.5 / 887.5 480 / 480 Balance 887.5 / 887.5 480 / 480 Microbiology Past 72 Hours 06/24/20 23:54 Sputum, Expectorated/Coughed Gram Stain - Final 06/24/20 23:53 Urine, Clean Catch Legionella Antigen - Final 06/24/20 23:53 Urine, Clean Catch Streptococcus pneumoniae Antigen (M - Final 06/24/20 15:21 Mucosa - Nasopharyngeal Respiratory Panel (PCR) - Final Rhinovirus Laboratory Results 06/24/20 15:21: COVID-19 (TANGELA) Not Detected 06/24/20 16:30: WBC 9.3, RBC 4.20, Hgb 13.8, Hct 42.2, MCV 100.5 H, MCH 32.9 H, MCHC 32.7, RDW Std Deviation 48.4 H, RDW Coeff of Yajaira 13.2, Plt Count 242, MPV 10.3, Immature Gran % (Auto) 0.100, Neut % (Auto) 57.6, Lymph % (Auto) 33.6, [place] % (Auto) 5.8, Eos % (Auto) 2.5, Baso % (Auto) 0.4, Absolute Neuts (auto) 5.3, Absolute Lymphs (auto) 3.12, Nucleated RBC % 0 06/24/20 16:30: D-Dimer Quant (PE/DVT) 0.86 H* 06/24/20 16:30: Sodium 143, Potassium 3.5, Chloride 111 H, Carbon Dioxide 24.0, Anion Gap 8, BUN 9, Creatinine 0.81, Estim Creat Clear Calc 92.85, Est GFR (MDRD) Af Amer 98, Est GFR (MDRD) Non-Af 81, BUN/Creatinine Ratio 11.1, Glucose 171 H, Calcium 9.0, Troponin I < 0.015 06/24/20 16:30: B-Natriuretic Peptide 34.1 06/24/20 16:30: Procalcitonin 0.20 H 06/24/20 20:10: Magnesium 1.6, Ferritin 85, Lactate Dehydrogenase 202, C-React Prot Ext Range 10.10 H 06/24/20 21:42: POC Glucose 183 H 06/25/20 06:01: POC Glucose 448 H 06/25/20 06:19: WBC 7.1, RBC 4.00 L, Hgb 13.0, Hct 40.2, MCV 100.5 H, MCH 32.5 H , MCHC 32.3, RDW Std Deviation 49.1 H, RDW Coeff of Yajaira 13.2, Plt Count 220, MPV 10.8, Immature Gran % (Auto) 0.300, Neut % (Auto) 91.1 H, Lymph % (Auto) 6.9 L, [place] % (Auto) 1.4, Eos % (Auto) 0.0, Baso % (Auto) 0.3, Absolute Neuts (auto) 6.5, Absolute Lymphs (auto) 0.49 L, Nucleated RBC % 0, Differential Comment SCANNED 06/25/20 06:19: Sodium 136, Potassium 4.1, Chloride 106, Carbon Dioxide 18.0 L, Anion Gap 12, BUN 11, Creatinine 1.15 H, Estim Creat Clear Calc 65.40, Est GFR (MDRD) Af Amer 65, Est GFR (MDRD) Non-Af 54 L, BUN/Creatinine Ratio 9.6 L, Glucose 439 H, Calcium 8.4 L, Total Bilirubin 0.30, AST 38 H, ALT 40, Alkaline Phosphatase 69, Total Protein 6.9, Albumin 3.1 L, Globulin 3.8, Albumin/Globulin Ratio 0.8 L 06/25/20 11:10: POC Glucose 437 H Current Medications Acetaminophen (Acetaminophen 325 Mg Tablet) 650 mg PO Q6H PRN PRN PRN Reason: Pain Score 1-10/Temp > 100.7 F Last Admin: 06/24/20 21:22 Dose: 650 mg Documented by: Al Hydroxide/Mg Hydroxide (Mag Hydrox/Al Hydrox/Simeth 30 Ml Udc) 30 ml PO Q6H PRN PRN PRN Reason: Gastric Burning Albuterol Sulfate (Albuterol Ih 8.5 Gm (Proair) Inhaler (200 Puffs)) 4 - 8 puff INHALATION Q4H PRN PRN PRN Reason: Dyspnea, wheezing Aspirin (Aspirin E.C. 81 Mg Tablet) 81 mg PO DAILY [facility] Last Admin: 06/25/20 08:31 Dose: 81 mg Documented by: Atorvastatin Calcium (Atorvastatin Calcium 40 Mg Tablet) 40 mg PO DAILY [facility] Last Admin: 06/25/20 08:33 Dose: 40 mg Documented by: Dexamethasone Sodium Phosphate (Dexamethasone 4 Mg/Ml Vial) 6 mg IV Q24 [facility] Last Admin: 06/25/20 08:33 Dose: 6 mg Documented by: Dextrose (Dextrose 50%-Water 25 Gm/50 Ml Disp.Syrin) 0 gm IV X1 PRN; Protocol PRN Reason: Hypoglycemia Enoxaparin Sodium (Enoxaparin 40 Mg/0.4 Ml Syringe) 40 mg SC BID [facility] Glucagon (Glucagon 1 Mg/Ml Syringe) 1 mg IM .X1 PRN PRN Reason: Hypoglycemia Guaifenesin (Guaifenesin 10 Ml Udc (200mg/10ml)) 20 ml PO Q4H PRN PRN PRN Reason: COUGH Last Admin: 06/25/20 15:31 Dose: 20 ml Documented by: Hydralazine HCl (Hydralazine 20 Mg/Ml Vial) 10 mg IV Q4H PRN PRN PRN Reason: SBP > 160 Insulin Human Lispro (Insulin Lispro 100 Unit/Ml Insuln.Pen) 0 unit SC ACHS [facility]; Protocol Last Admin: 06/25/20 12:02 Dose: 7 unit Documented by: Insulin Human Lispro (Insulin Lispro 100 Unit/Ml Insuln.Pen) 15 unit SC LUNCH [facility] Insulin Human Lispro (Insulin Lispro 100 Unit/Ml Insuln.Pen) 15 unit SC DINNER [facility] Insulin Human Lispro (Insulin Lispro 100 Unit/Ml Insuln.Pen) 15 unit SC BREAKFAST [facility] Insulin Lispro Protam/Lispro Human (Insulin Human 75/25 Kwickpen) 50 unit SC BIDCM [facility] Levothyroxine Sodium (Levothyroxine 150 Mcg Tablet) 300 mcg PO DAILY [facility] Last Admin: 06/25/20 08:32 Dose: 300 mcg Documented by: Levothyroxine Sodium (Levothyroxine 25 Mcg Tablet) 25 mcg PO DAILY [facility] Last Admin: 06/25/20 08:48 Dose: 25 mcg Documented by: Lisinopril (Lisinopril 5 Mg Tablet) 5 mg PO DAILY [facility] Last Admin: 06/25/20 08:32 Dose: 5 mg Documented by: Magnesium Hydroxide (Magnesium Hydroxide 30 Ml Udc) 30 ml PO DAILY PRN PRN PRN Reason: Constipation Metoprolol Succinate (Metoprolol(Xl)Succ 50 Mg Tablet) 50 mg PO DAILY [facility] Last Admin: 06/25/20 08:32 Dose: 50 mg Documented by: Oxybutynin Chloride (Oxybutynin 5 Mg Tablet) 5 mg PO TID [facility] Last Admin: 06/25/20 13:33 Dose: 5 mg Documented by: Promethazine HCl (Promethazine 25 Mg/Ml Syringe) 12.5 mg IV Q4H PRN PRN PRN Reason: NAUSEA/VOMITING Last Admin: 06/25/20 15:23 Dose: 12.5 mg Documented by: Psyllium Hydrophilic Mucilloid (Psyllium 1 Packet) 1 packet PO DAILY PRN PRN PRN Reason: Constipation Senna/Docusate Sodium (Senna/Docusate Sodium 1 Tablet) 2 tablet PO BID PRN PRN PRN Reason: Constipation Sodium Chloride (0.9% Saline Lock 10 Ml Syringe) 10 - 40 ml IV UD PRN PRN Reason: SALINE FLUSH Last Admin: 06/25/20 15:24 Dose: 20 ml Documented by: Throat Lozenges (Benzocaine/Menthol 1 Lozenge) 1 lozenge MUCOUS MEM Q2H PRN PRN PRN Reason: SORE THROAT Tizanidine HCl (Tizanidine Hcl 2 Mg Tablet) 4 mg PO TID [facility] Last Admin: 06/25/20 13:33 Dose: 4 mg Documented by: Topiramate (Topiramate 100 Mg Tablet) 100 mg PO BID [facility] Last Admin: 06/25/20 08:32 Dose: 100 mg Documented by: Venlafaxine HCl (Venlafaxine Xr 150 Mg Capsule) 150 mg PO BID [facility] Last Admin: 06/25/20 08:31 Dose: 150 mg Documented by: Zolpidem Tartrate (Zolpidem Tartrate 5 Mg Tablet) 5 mg PO QHS PRN PRN Reason: SLEEP Last Admin: 06/24/20 21:59 Dose: 5 mg Documented by: Discharge Activity: Return to Normal Activity Home Medications: Medications to take at Discharge oxybutynin chloride 5 mg tablet 5 mg PO TID 10/15/17 Tizanidine HCl [Zanaflex] 4 mg PO TID 01/18/18 venlafaxine 150 mg capsule,extended release 24 hr 150 mg PO BID cap 04/06/18 Multivit-Min/Iron/Folic/Lutein [Centrum Silver Women Tablet] 1 tab PO DAILY 04/27/18 Topiramate [Topamax] 100 mg PO BID tablet 05/01/18 Glimepiride [Amaryl] 8 mg PO QAM 11/06/18 Dulaglutide [Trulicity] 1.5 mg SQ GOMEZ 01/22/19 Aspirin [Aspirin EC] 81 mg PO DAILY 06/01/20 Atorvastatin Calcium [Lipitor] 40 mg PO DAILY 06/01/20 Levothyroxine Sodium [Synthroid] 300 mcg PO DAILY 06/01/20 Levothyroxine [Synthroid] 25 mcg PO DAILY 06/01/20 Lisinopril 5 mg PO DAILY 06/01/20 Metoprolol Succinate [Toprol Xl] 50 mg PO DAILY 06/01/20 Zolpidem Tartrate [Ambien] 10 mg PO QHS 06/01/20 Insulin Lispro Mix 75-25 Kwkpn 40 units SC BID 06/24/20 Primary Care Physician: Lissett Begum RN LONG TERM CARE, RN LONG TERM CARE-C [Primary Care Provider] - Please follow up with your Primary Care Physician in: in 1 week Medical Necessity - Tobacco Use Smoking Status: Never smoker Tobacco Use: Non-smoker
--- NOTE | 2020-06-25 17:02 | NURSING ---
Addendum entered by Prema Briscoe 06/25/20 17:19: WHEN PT VOICED CONCERN OF HIGH BLOOD SUGAR, THIS NURSE EXPLAINED TO HER THAT WITH HER BEING ILL, TAKING STEROIDS, DRINKING ALL THE MILK SHE HAS BEEN DRINKING AND EATING LARGE MEALS, HER BLOOD SUGAR WILL BE ELEVATED. ENCOURAGED HER TO CHECK HER SUGARS SEVERAL TIMES DAILY, WRITE THEM DOWN AND TAKE THEM TO HER F/U APPT W/PCP. PT THEN C/O LOWER BACK PAIN AND REQUESTED URINE CX Original Note: PT REQUESTING TO TALK TO DR MOISE AFTER CHANGES WERE MADE TO HER MEDICATIONS. PT TOLD HER NURSE, SUKI, THAT SHE THOUGHT SHE PULLED A MUSCLE IN HER NECK LAST NIGHT AND HER HERNIA WAS BOTHERING HER AFTER ALL HER COUGHING. THIS NURSE SPOKE TO HER VIA PHONE AND EXPLAINED THAT DR MOISE WAS AWARE OF HER C/O NECK AND HERNIA, SHE HAD EXPRESSED HER CONCERNS TO HIM THIS AM AND HE LEFT THE [facility] ON HER OCT, SHE TAKES AT HOME. ALSO EXPLAINED THAT PT WAS NOT COVID (+) THEREFORE SHE WOULD BE TRANSFERRED OF THIS UNIT. PT STATED THAT SHE WOULD PREFER TO GO HOME. THIS WAS CONVEYED TO DR MOISE AND HE PUT IN DC ORDERS. PT THEN VOICED THAT SHE WAS CONCERNED WITH HER ELEVATED BLOOD SUGARS, THOUGHT SHE MUST HAVE AN INFECTION SOMEWHERE AND REQUESTED A URINE CULTURE, BECAUSE HER BLOOD SUGARS ARE ALWAYS AROUND 175 AT HOME. PT AGAIN REQUESTING TO SPEAK W/DR MOISE. AFTER SPEAKING W/DR MOISE, HE CANCELLED DC ORDERS AND ORDERED URINE CULTURE AND PT IS TO TRANSFER [place] [facility]. PT BROUGHT PT 2 SANDWICHES, 6 MOZZERELLA STICKS FROM [employer] AN ICE TEA AND A SECOND DRINK, PT IS EATING THE HOSPITAL MEAL WELL .
[2020-06-25 17:56] LABS: Bedside Glucose 401 mg/dL (70-110)
[2020-06-25] MEDS: Insulin Lispro 100 UNIT/ML INSULN.PEN 15 UNIT SC (18:02)
[2020-06-25] MEDS: Insulin Human 75/25 Kwickpen 50 UNIT SC (18:05)
--- NOTE | 2020-06-25 18:44 | NURSING ---
Report called to [facility] nurse for pt transfer to [facility].
[2020-06-25] MEDS: Enoxaparin 40 MG/0.4 ML Syringe SC (21:32)
[2020-06-25 21:41] LABS: Bedside Glucose 363 mg/dL (70-110)
[2020-06-25] MEDS: Zolpidem Tartrate 5 MG Tablet PO (22:09)
[2020-06-25] MEDS: Acetaminophen 325 MG Tablet 650 MG PO (22:09)
[2020-06-25] MEDS: Ketorolac 15 MG/ML Vial IV (22:28)
[2020-06-26 04:00] VITALS: BP 126/76; PULSE 92; RESP 18; TEMP 36.8; O2SAT 97
[2020-06-26] MEDS: proMETHazine 25 MG/ML Syringe 12.5 MG IV ×2 (04:40→09:58)
[2020-06-26] MEDS: tiZANidine HCl 2 MG Tablet 4 MG PO ×2 (04:45→13:43)
[2020-06-26] MEDS: Oxybutynin 5 MG Tablet PO ×2 (04:45→13:43)
[2020-06-26] MEDS: Ketorolac 15 MG/ML Vial IV ×2 (04:46→13:43)
[2020-06-26] MEDS: guaiFENesin 10 ML UDC (200MG/10ML) 20 ML PO ×2 (04:48→09:53)
[2020-06-26] MEDS: Insulin Lispro 100 UNIT/ML INSULN.PEN SC ×2 (07:26→12:26)
[2020-06-26] MEDS: Insulin Lispro 100 UNIT/ML INSULN.PEN 15 UNIT SC ×2 (07:27→12:26)
[2020-06-26] MEDS: Insulin Human 75/25 Kwickpen 50 UNIT SC (07:29)
[2020-06-26] MEDS: Venlafaxine XR 150 MG Capsule PO (07:30)
[2020-06-26] MEDS: Levothyroxine 150 MCG Tablet 300 MCG PO (07:30)
[2020-06-26] MEDS: Aspirin E.C. 81 MG Tablet PO (07:30)
[2020-06-26] MEDS: Levothyroxine 25 MCG TABLET PO (07:30)
--- NOTE | 2020-06-26 07:34 | PN_ITS ---
Vitals/I&O's: Vital Signs Temp Pulse Resp BP Pulse Ox 98.2 F 92 18 126/76 H 97 06/26/20 04:00 06/26/20 04:00 06/26/20 04:00 06/26/20 04:00 06/26/20 04:00 Oxygen Delivery Method Room Air Weight: 190.3 kg Body Mass Index (BMI) 60.1 Finger Stick Blood Glucose 195 Intake and Output for Last 24 Hours 06/24/20 06/25/20 06/26/20 23:59 23:59 23:59 Intake Total 887.5 / 887.5 1480 / 1830 830 / 830 Output Total 300 / 300 Balance 887.5 / 887.5 1180 / 1530 830 / 830 Microbiology Past 72 Hours 06/24/20 23:54 Sputum, Expectorated/Coughed Gram Stain - Final 06/24/20 23:53 Urine, Clean Catch Legionella Antigen - Final 06/24/20 23:53 Urine, Clean Catch Streptococcus pneumoniae Antigen (M - Final 06/24/20 15:21 Mucosa - Nasopharyngeal Respiratory Panel (PCR) - Final Rhinovirus Laboratory Results 06/25/20 11:10: POC Glucose 437 H 06/25/20 16:15: POC Glucose 401 H 06/25/20 21:36: POC Glucose 363 H Current Medications Acetaminophen (Acetaminophen 325 Mg Tablet) 650 mg PO Q6H PRN PRN PRN Reason: Pain Score 1-10/Temp > 100.7 F Last Admin: 06/25/20 22:09 Dose: 650 mg Documented by: Al Hydroxide/Mg Hydroxide (Mag Hydrox/Al Hydrox/Simeth 30 Ml Udc) 30 ml PO Q6H PRN PRN PRN Reason: Gastric Burning Albuterol Sulfate (Albuterol Ih 8.5 Gm (Proair) Inhaler (200 Puffs)) 4 - 8 puff INHALATION Q4H PRN PRN PRN Reason: Dyspnea, wheezing Aspirin (Aspirin E.C. 81 Mg Tablet) 81 mg PO DAILY [facility] Last Admin: 06/26/20 07:30 Dose: 81 mg Documented by: Atorvastatin Calcium (Atorvastatin Calcium 40 Mg Tablet) 40 mg PO DAILY [facility] Last Admin: 06/25/20 08:33 Dose: 40 mg Documented by: Dextrose (Dextrose 50%-Water 25 Gm/50 Ml Disp.Syrin) 0 gm IV X1 PRN; Protocol PRN Reason: Hypoglycemia Enoxaparin Sodium (Enoxaparin 40 Mg/0.4 Ml Syringe) 40 mg SC BID [facility] Last Admin: 06/25/20 21:32 Dose: 40 mg Documented by: Glucagon (Glucagon 1 Mg/Ml Syringe) 1 mg IM .X1 PRN PRN Reason: Hypoglycemia Guaifenesin (Guaifenesin 10 Ml Udc (200mg/10ml)) 20 ml PO Q4H PRN PRN PRN Reason: COUGH Last Admin: 06/26/20 04:48 Dose: 20 ml Documented by: Hydralazine HCl (Hydralazine 20 Mg/Ml Vial) 10 mg IV Q4H PRN PRN PRN Reason: SBP > 160 Insulin Human Lispro (Insulin Lispro 100 Unit/Ml Insuln.Pen) 0 unit SC ACHS [facility]; Protocol Last Admin: 06/26/20 07:26 Dose: 5 unit Documented by: Insulin Human Lispro (Insulin Lispro 100 Unit/Ml Insuln.Pen) 15 unit SC LUNCH [facility] Insulin Human Lispro (Insulin Lispro 100 Unit/Ml Insuln.Pen) 15 unit SC DINNER [facility] Last Admin: 06/25/20 18:02 Dose: 15 u Documented by: Insulin Human Lispro (Insulin Lispro 100 Unit/Ml Insuln.Pen) 15 unit SC BREAKFAST [facility] Last Admin: 06/26/20 07:27 Dose: 15 units Documented by: Insulin Lispro Protam/Lispro Human (Insulin Human 75/25 Kwickpen) 50 unit SC BIDCM [facility] Last Admin: 06/26/20 07:29 Dose: 50 u Documented by: Ketorolac Tromethamine (Ketorolac 15 Mg/Ml Vial) 15 mg IV Q8 [facility] Stop: 06/27/20 06:01 Last Admin: 06/26/20 04:46 Dose: 15 mg Documented by: Levothyroxine Sodium (Levothyroxine 150 Mcg Tablet) 300 mcg PO DAILY [facility] Last Admin: 06/26/20 07:30 Dose: 300 mcg Documented by: Levothyroxine Sodium (Levothyroxine 25 Mcg Tablet) 25 mcg PO DAILY [facility] Last Admin: 06/26/20 07:30 Dose: 25 mcg Documented by: Lisinopril (Lisinopril 5 Mg Tablet) 5 mg PO DAILY [facility] Last Admin: 06/25/20 08:32 Dose: 5 mg Documented by: Magnesium Hydroxide (Magnesium Hydroxide 30 Ml Udc) 30 ml PO DAILY PRN PRN PRN Reason: Constipation Metoprolol Succinate (Metoprolol(Xl)Succ 50 Mg Tablet) 50 mg PO DAILY [facility] Last Admin: 06/25/20 08:32 Dose: 50 mg Documented by: Oxybutynin Chloride (Oxybutynin 5 Mg Tablet) 5 mg PO TID [facility] Last Admin: 06/26/20 04:45 Dose: 5 mg Documented by: Promethazine HCl (Promethazine 25 Mg/Ml Syringe) 12.5 mg IV Q4H PRN PRN PRN Reason: NAUSEA/VOMITING Last Admin: 06/26/20 04:40 Dose: 12.5 mg Documented by: Psyllium Hydrophilic Mucilloid (Psyllium 1 Packet) 1 packet PO DAILY PRN PRN PRN Reason: Constipation Senna/Docusate Sodium (Senna/Docusate Sodium 1 Tablet) 2 tablet PO BID PRN PRN PRN Reason: Constipation Sodium Chloride (0.9% Saline Lock 10 Ml Syringe) 10 - 40 ml IV UD PRN PRN Reason: SALINE FLUSH Last Admin: 06/25/20 22:28 Dose: 10 ml Documented by: Throat Lozenges (Benzocaine/Menthol 1 Lozenge) 1 lozenge MUCOUS MEM Q2H PRN PRN PRN Reason: SORE THROAT Tizanidine HCl (Tizanidine Hcl 2 Mg Tablet) 4 mg PO TID [facility] Last Admin: 06/26/20 04:45 Dose: 4 mg Documented by: Topiramate (Topiramate 100 Mg Tablet) 100 mg PO BID [facility] Last Admin: 06/25/20 21:32 Dose: 100 mg Documented by: Venlafaxine HCl (Venlafaxine Xr 150 Mg Capsule) 150 mg PO BID [facility] Last Admin: 06/26/20 07:30 Dose: 150 mg Documented by: Zolpidem Tartrate (Zolpidem Tartrate 5 Mg Tablet) 5 mg PO QHS PRN PRN Reason: SLEEP Last Admin: 06/25/20 22:09 Dose: 5 mg Documented by: STROKE Vital Signs/Narrative: Vital Signs Temp Pulse Resp BP Pulse Ox 06/26/20 04:00 98.2 F 92 18 126/76 H 97 Medical Necessity - Tobacco Use Smoking Status: Never smoker Tobacco Use: Non-smoker Assessment/Plan All Active Problems (Last Reviewed 06/01/20 @ 21:[address] Mickey Guardado, DO) Rhinovirus infection (Acute) Migraine aura, persistent (Acute) Acute metabolic encephalopathy (Acute) Suspected COVID-19 virus infection (Ruled-out) Hypoxia (Acute) Abscess of right axilla (Acute) ARF (acute renal failure) (Acute)
[2020-06-26 07:51] LABS: Bedside Glucose 339 mg/dL (70-110)
[2020-06-26 08:37] LABS: Absolute Lymphocyte Count 2.68 X10^3/uL (0.83-4.51); Absolute Neutrophil Count 4.8 X10^3/uL (2.0-7.7); Basophil# 0.02 X10^3/uL; Basophil% 0.3 % (0-1); Eosinophil# 0.08 X10^3/uL; Hematocrit 35.6 % (37-47); Hemoglobin 11.6 g/dL (12.0-15.0); Lymphocyte # 2.68 X10^3/ul (4.0); Lymphocyte % 33.5 % (19-41); Mean Corp Hgb Conc 32.6 g/dL (32-36); Mean Corpuscular Hgb 32.6 pg (27.0-32.0); Mean Platelet Vol. 10.1 fl (6.2-12.0); Monocyte# 0.44 X10^3/uL; Monocyte% 5.5 % (0-10); NRBC Flagged by Analyzer 0 % (0-5); Neutrophil # 4.76 X10^3/uL (2.7-7.7); Neutrophil % 59.4 % (47-70); Platelet Count 195 K/mm3 (150-450); RBC Distribution Width CV 13.2 % (11.6-14.6); RBC Distribution Width SD 48.9 fl (35.1-43.9); Red Blood Count 3.56 M/mm3 (4.2-5.4)
[2020-06-26 09:01] LABS: ALB/GLOB Ratio 0.8 RATIO (0.9-2.4); AST(SGOT) 19 U/L (15-37); Alanine Aminotransfer ALT/SGPT 29 U/L (13-56); Albumin, Serum 2.7 g/dL (3.2-5.0); Alkaline Phosphatase 60 U/L (45-117); Anion Gap 7 (5-15); BUN 27 mg/dL (7-18); BUN/Creat Ratio 28.2 RATIO (10-20); Calcium,Total 8.5 mg/dL (8.5-10.1); Chloride 110 mmol/L (98-107); Creatinine, Serum 0.96 mg/dL (0.55-1.02); EST Glomerular Filtration Rate 66 mL/min (>60); Est Glom Filt Rate - Afr Amer 80 mL/min (>60); Estimated Creatinine Clearance 78.34 ml/min; Globulin 3.3 g/dL (2.2-4.2); Glucose 277 mg/dL (74-106); Magnesium 1.9 mg/dL (1.6-2.6); Potassium 3.8 mmol/L (3.5-5.1); Sodium Level 141 mmol/L (136-145)
--- NOTE | 2020-06-26 09:27 | NURSING ---
talked with lab, aware they have urine already collected that can be used for the UA.
[2020-06-26 09:35] VITALS: BP 121/74; PULSE 97; RESP 20; TEMP 36.4; O2SAT 98
[2020-06-26 09:38] VITALS: O2SAT 99
[2020-06-26] MEDS: Topiramate 100 MG Tablet PO (09:53)
[2020-06-26] MEDS: Enoxaparin 40 MG/0.4 ML Syringe SC (09:53)
[2020-06-26] MEDS: Lisinopril 5 MG Tablet PO (09:53)
[2020-06-26 09:54] VITALS: PULSE 97
[2020-06-26] MEDS: Atorvastatin Calcium 40 MG Tablet PO (09:54)
[2020-06-26] MEDS: Glimepiride 2 MG Tablet 8 MG PO (09:54)
[2020-06-26] MEDS: Metoprolol(XL)Succ 50 MG Tablet PO (09:54)
[2020-06-26 09:58] LABS: Color, Urine Yellow (Yellow); Glucose, Dipstick 1000 mg/dl (Normal); Ketone-Dipstick 5 mg/dl (Negative); Leukocyte Esterase-Dipstick Negative /ul (Negative); Nitrite-Dipstick Negative (Negative); Occult Blood-Urine Negative /ul (Negative); Protein-Dipstick Negative (Negative); Urine Bilirubin Dipstick Negative (Negative); Urine Clarity Sl. Cloudy (Clear); Urine Urobilinogen Normal (Normal)
[2020-06-26] MEDS: Acetaminophen 325 MG Tablet 650 MG PO (09:58)
[2020-06-26] MEDS: 0.9% Saline Lock 10 ML Syringe IV ×2 (09:59→13:43)
--- NOTE | 2020-06-26 10:09 | NURSING ---
almost immediately after phenergan given, pt requests multiple cans of gingerale and ice- reinforced going slow since c/o of nausea and requested prn medication- pt states i have already drank 2 big pitchers, i think i will be okay. 2 small cans diet ginerale and 2 cups of ice given.
[2020-06-26 11:41] LABS: Bedside Glucose 162 mg/dL (70-110)
--- NOTE | 2020-06-26 12:24 | DCINST_ITS ---
- Discharge Diagnoses Current Active Problems: Current Active and Chronic Problems (Last Reviewed 06/01/20 @ 21:[address] Mickey Guardado, DO) Acute rhinovirus bronchitis/viral syndrome Type II DM Hypothyroidism Hypertension Dyslipidemia Chronic migraine Fibromyalgia Paraumbilical hernia Morbid obesity Reason(s) for Visit for Discharge Instructions: Fever, cough, body aches, headaches, shortness of breath You will use the following diet at home:: Calorie/Carbohydrate Controlled (specify 1200, 1400, etc) - 2000 calories, Cardiac Your food should be the consistency of: Regular Your liquids should be the consistency of: Regular/Thin Discharge Activity: Return to Normal Activity Additional Instructions: Continue to keep yourself hydrated. Continue to monitor blood sugars. Continue to use your incentive spirometer. Follow-up with your primary care doctor as scheduled. Allergies/Adverse Reactions: Allergies hydroxyzine [From Atarax] Allergy (Verified 06/24/20 15:53) Hives Sulfa (Sulfonamide Antibiotics) Allergy (Verified 06/24/20 15:53) Hives raspberry Adverse Reaction (Verified 06/24/20 15:53) Other migarine Medications to take at Discharge oxybutynin chloride 5 mg tablet 5 mg PO TID 10/15/17 Tizanidine HCl [Zanaflex] 4 mg PO TID 01/18/18 venlafaxine 150 mg capsule,extended release 24 hr 150 mg PO BID cap 04/06/18 Multivit-Min/Iron/Folic/Lutein [Centrum Silver Women Tablet] 1 tab PO DAILY 04/27/18 Topiramate [Topamax] 100 mg PO BID tablet 05/01/18 Glimepiride [Amaryl] 8 mg PO QAM 11/06/18 Dulaglutide [Trulicity] 1.5 mg SQ GOMEZ 01/22/19 Aspirin [Aspirin EC] 81 mg PO DAILY 06/01/20 Atorvastatin Calcium [Lipitor] 40 mg PO DAILY 06/01/20 Levothyroxine Sodium [Synthroid] 300 mcg PO DAILY 06/01/20 Levothyroxine [Synthroid] 25 mcg PO DAILY 06/01/20 Lisinopril 5 mg PO DAILY 06/01/20 Metoprolol Succinate [Toprol Xl] 50 mg PO DAILY 06/01/20 Zolpidem Tartrate [Ambien] 10 mg PO QHS 06/01/20 Insulin Lispro Mix 75-25 Kwkpn 40 units SC BID 06/24/20 Primary Care Physician: Lissett Begum NP, [employer] [Primary Care Provider] - Please follow up with your Primary Care Physician in: in 1 week Test Results: Test results from this visit will be discussed in further detail at your follow- up appointment, if applicable. Proposed Discharge Date: 06/25/20
--- NOTE | 2020-06-26 12:27 | DS.PCM_ITS ---
Discharge Date and Diagnosis Date of Admission: 06/24/20 Date of Discharge: 06/26/20 - Primary Discharge Diagnosis Acute Problems: Acute rhinovirus bronchitis/viral syndrome Debility - Secondary Discharge Diagnosis Chronic Problems: Chronic Problems (Last Reviewed 06/01/20 @ 21:[address] Mickey Guardado, ) Morbid obesity (Chronic) Chronic pain syndrome (Chronic) Urinary retention with incomplete bladder emptying (Chronic) Insomnia (Chronic) Seasonal allergies (Chronic) Anxiety and depression (Chronic) Back problem (Chronic) Carpal tunnel syndrome (Chronic) Diabetes type 2, uncontrolled (Chronic) Frequent headaches (Chronic) HTN (hypertension) (Chronic) Fatty liver (Chronic) GERD (gastroesophageal reflux disease) (Chronic) Thyroid disease (Chronic) Fibromyalgia (Chronic) Depression (Chronic) Reports she does not like medications for depression. Reports it has been prescribed at various times by her care providers. No interest in counseling. No suicide thoughts or thoughts of hurting others. Diabetes mellitus (Chronic) Discussed with patient need to check BG consistently and routinely. Showed her how to check correctly along side of finger and how to improve chances of getting blood sample on low dial. She may be a candidate for [employer] Warden system,depending on insurance. We discussed importance of routine care and following medication plan. Her level of anxiety significantly reduce by end of appointment. Instructed to check BG in pairs over the next several days . Will obtain medical records Hospital Course and Treatment Imaging Results: Clinical Impression(s) from Imaging Studies Chest X-Ray 06/24/20 15:30 IMPRESSION: Normal x-ray examination of the chest. Electronically Signed: Velasquez Daigle DO at 16:21 EST Tel , Service support , Chest CTA 06/24/20 17:15 IMPRESSION: Very limited exam for reasons above. No evidence of large central pulmonary embolism. No evidence of thoracic aortic dissection. No evidence of right heart strain. Lungs are clear. Electronically Signed: Velasquez Daigle DO at 18:17 EST Tel , Service support , Abdomen/Pelvis CT 06/24/20 18:17 IMPRESSION: No acute findings. Status post appendectomy and cholecystectomy as well as hysterectomy. Remainder is unchanged Electronically Signed: Velasquez Daigle DO at 19:16 EST Tel , Service support , Operations: None Procedures: None Summary of Care Provided: The patient is a 45 year old F with multiple comorbidities admitted with fever, cough, body aches, headaches and dyspnea. Patient had given a history of being tested for COVID-19 2 weeks ago in the outpatient which was negative. Her son works in an extended care facility and is positive for COVID-19. Her COVID-19 testing on admission was negative. Respiratory panel was positive for rhinovirus. Patient was admitted to the [facility] floor and managed symptomatically. Her blood sugars were uncontrolled with changes made to her insulin sliding scale while was on dexamethasone. Patient remained afebrile. Did not need to be on oxygen. She was evaluated for oxygen at discharge and did not qualify. Her sputum cultures came back positive for staph aureus. She reportedly had completed azithromycin in the outpatient. She was discharged on doxycycline for 1 week. She will follow-up with her primary care doctor within 1 to 2 weeks. Subjective: On the day of discharge, patient was seen and examined. She complains of generalized ache. She stated that her sputum is yellowish-green. Doppler ultrasound of the lower extremity was negative. UA was slightly cloudy but not suggestive of UTI. Objective: Physical exam: General: awake, alert, oriented x 3 and cooperative,morbidly, no obvious distress. Skin: normal color, turgor, no icterus, cyanosis. Lungs: Diminished breath sounds Heart: HS I +II, regular, no murmurs Abdomen: soft, morbidly obese, generalized discomfort with palpation, ND, mildly hyperactive BS, no obvious HSM; however, habitus makes examination difficult. Extremities: no bilateral pedal edema - Physical Exam Vitals/I&O's: Vital Signs Temp Pulse Resp BP Pulse Ox 97.6 F L 97 20 H 121/74 H 99 06/26/20 09:35 06/26/20 09:54 06/26/20 09:35 06/26/20 09:35 06/26/20 09:38 Oxygen Delivery Method Room Air Weight: 190.3 kg Body Mass Index (BMI) 60.1 Finger Stick Blood Glucose 195 Intake and Output for Last 24 Hours 06/24/20 06/25/20 06/26/20 23:59 23:59 23:59 Intake Total 887.5 / 887.5 1480 / 1830 830 / 830 Output Total 300 / 300 Balance 887.5 / 887.5 1180 / 1530 830 / 830 Microbiology Past 72 Hours 06/24/20 23:54 Sputum, Expectorated/Coughed Gram Stain - Final 06/24/20 23:53 Urine, Clean Catch Legionella Antigen - Final 06/24/20 23:53 Urine, Clean Catch Streptococcus pneumoniae Antigen (M - Final 06/24/20 15:21 Mucosa - Nasopharyngeal Respiratory Panel (PCR) - Final Rhinovirus Laboratory Results 06/25/20 16:15: POC Glucose 401 H 06/25/20 19:00: Urine Color Yellow, Urine Clarity Sl. Cloudy, Urine pH 6.0, Ur Specific [place] 1.010, Urine Protein Negative, Urine Glucose (UA) 1000 H, Urine Ketones 5 H, Urine Occult Blood Negative, Urine Nitrite Negative, Urine Bilirubin Negative, Urine Urobilinogen Normal, Ur Leukocyte Esterase Negative 06/25/20 21:36: POC Glucose 363 H 06/26/20 07:25: POC Glucose 339 H 06/26/20 08:30: WBC 8.0, RBC 3.56 L, Hgb 11.6 L, Hct 35.6 L, MCV 100.0 H, MCH 32.6 H, MCHC 32.6, RDW Std Deviation 48.9 H, RDW Coeff of Yajaira 13.2, Plt Count 195, MPV 10.1, Immature Gran % (Auto) 0.300, Neut % (Auto) 59.4, Lymph % (Auto) 33.5, [place] % (Auto) 5.5, Eos % (Auto) 1.0, Baso % (Auto) 0.3, Absolute Neuts (auto) 4.8, Absolute Lymphs (auto) 2.68, Nucleated RBC % 0 06/26/20 08:30: Sodium 141, Potassium 3.8, Chloride 110 H, Carbon Dioxide 24.0, Anion Gap 7, BUN 27 H, Creatinine 0.96, Estim Creat Clear Calc 78.34, Est GFR (MDRD) Af Amer 80, Est GFR (MDRD) Non-Af 66, BUN/Creatinine Ratio 28.2 H, Glucose 277 H, Calcium 8.5, Magnesium 1.9, Total Bilirubin 0.40, AST 19, ALT 29, Alkaline Phosphatase 60, Total Protein 6.0 L, Albumin 2.7 L, Globulin 3.3, Albumin/Globulin Ratio 0.8 L 06/26/20 11:34: POC Glucose 162 H Current Medications Acetaminophen (Acetaminophen 325 Mg Tablet) 650 mg PO Q6H PRN PRN PRN Reason: Pain Score 1-10/Temp > 100.7 F Last Admin: 06/26/20 09:58 Dose: 650 mg Documented by: Al Hydroxide/Mg Hydroxide (Mag Hydrox/Al Hydrox/Simeth 30 Ml Udc) 30 ml PO Q6H PRN PRN PRN Reason: Gastric Burning Albuterol Sulfate (Albuterol Ih 8.5 Gm (Proair) Inhaler (200 Puffs)) 4 - 8 puff INHALATION Q4H PRN PRN PRN Reason: Dyspnea, wheezing Aspirin (Aspirin E.C. 81 Mg Tablet) 81 mg PO DAILY [facility] Last Admin: 06/26/20 07:30 Dose: 81 mg Documented by: Atorvastatin Calcium (Atorvastatin Calcium 40 Mg Tablet) 40 mg PO DAILY [facility] Last Admin: 06/26/20 09:54 Dose: 40 mg Documented by: Dextrose (Dextrose 50%-Water 25 Gm/50 Ml Disp.Syrin) 0 gm IV X1 PRN; Protocol PRN Reason: Hypoglycemia Enoxaparin Sodium (Enoxaparin 40 Mg/0.4 Ml Syringe) 40 mg SC BID [facility] Last Admin: 06/26/20 09:53 Dose: 40 mg Documented by: Glimepiride (Glimepiride 2 Mg Tablet) 8 mg PO QAM [facility] Last Admin: 06/26/20 09:54 Dose: 8 mg Documented by: Glucagon (Glucagon 1 Mg/Ml Syringe) 1 mg IM .X1 PRN PRN Reason: Hypoglycemia Guaifenesin (Guaifenesin 10 Ml Udc (200mg/10ml)) 20 ml PO Q4H PRN PRN PRN Reason: COUGH Last Admin: 06/26/20 09:53 Dose: 20 ml Documented by: Hydralazine HCl (Hydralazine 20 Mg/Ml Vial) 10 mg IV Q4H PRN PRN PRN Reason: SBP > 160 Insulin Human Lispro (Insulin Lispro 100 Unit/Ml Insuln.Pen) 0 unit SC ACHS [facility]; Protocol Last Admin: 06/26/20 07:26 Dose: 5 unit Documented by: Insulin Human Lispro (Insulin Lispro 100 Unit/Ml Insuln.Pen) 15 unit SC LUNCH [facility] Insulin Human Lispro (Insulin Lispro 100 Unit/Ml Insuln.Pen) 15 unit SC DINNER [facility] Last Admin: 06/25/20 18:02 Dose: 15 u Documented by: Insulin Human Lispro (Insulin Lispro 100 Unit/Ml Insuln.Pen) 15 unit SC BREAKFAST [facility] Last Admin: 06/26/20 07:27 Dose: 15 units Documented by: Insulin Lispro Protam/Lispro Human (Insulin Human 75/25 Kwickpen) 50 unit SC BIDCM [facility] Last Admin: 06/26/20 07:29 Dose: 50 u Documented by: Ketorolac Tromethamine (Ketorolac 15 Mg/Ml Vial) 15 mg IV Q8 [facility] Stop: 06/27/20 06:01 Last Admin: 06/26/20 04:46 Dose: 15 mg Documented by: Levothyroxine Sodium (Levothyroxine 150 Mcg Tablet) 300 mcg PO DAILY [facility] Last Admin: 06/26/20 07:30 Dose: 300 mcg Documented by: Levothyroxine Sodium (Levothyroxine 25 Mcg Tablet) 25 mcg PO DAILY [facility] Last Admin: 06/26/20 07:30 Dose: 25 mcg Documented by: Lisinopril (Lisinopril 5 Mg Tablet) 5 mg PO DAILY [facility] Last Admin: 06/26/20 09:53 Dose: 5 mg Documented by: Magnesium Hydroxide (Magnesium Hydroxide 30 Ml Udc) 30 ml PO DAILY PRN PRN PRN Reason: Constipation Metoprolol Succinate (Metoprolol(Xl)Succ 50 Mg Tablet) 50 mg PO DAILY [facility] Last Admin: 06/26/20 09:54 Dose: 50 mg Documented by: Oxybutynin Chloride (Oxybutynin 5 Mg Tablet) 5 mg PO TID [facility] Last Admin: 06/26/20 04:45 Dose: 5 mg Documented by: Promethazine HCl (Promethazine 25 Mg/Ml Syringe) 12.5 mg IV Q4H PRN PRN PRN Reason: NAUSEA/VOMITING Last Admin: 06/26/20 09:58 Dose: 12.5 mg Documented by: Psyllium Hydrophilic Mucilloid (Psyllium 1 Packet) 1 packet PO DAILY PRN PRN PRN Reason: Constipation Senna/Docusate Sodium (Senna/Docusate Sodium 1 Tablet) 2 tablet PO BID PRN PRN PRN Reason: Constipation Sodium Chloride (0.9% Saline Lock 10 Ml Syringe) 10 - 40 ml IV UD PRN PRN Reason: SALINE FLUSH Last Admin: 06/26/20 09:59 Dose: 10 ml Documented by: Throat Lozenges (Benzocaine/Menthol 1 Lozenge) 1 lozenge MUCOUS MEM Q2H PRN PRN PRN Reason: SORE THROAT Tizanidine HCl (Tizanidine Hcl 2 Mg Tablet) 4 mg PO TID [facility] Last Admin: 06/26/20 04:45 Dose: 4 mg Documented by: Topiramate (Topiramate 100 Mg Tablet) 100 mg PO BID [facility] Last Admin: 06/26/20 09:53 Dose: 100 mg Documented by: Venlafaxine HCl (Venlafaxine Xr 150 Mg Capsule) 150 mg PO BID [facility] Last Admin: 06/26/20 07:30 Dose: 150 mg Documented by: Zolpidem Tartrate (Zolpidem Tartrate 5 Mg Tablet) 5 mg PO QHS PRN PRN Reason: SLEEP Last Admin: 06/25/20 22:09 Dose: 5 mg Documented by: Discharge Diet: Low fat/ Low Cholesterol, 2000 mg Sodium Diet Discharge Activity: Return to Normal Activity Home Medications: Medications to take at Discharge oxybutynin chloride 5 mg tablet 5 mg PO TID 10/15/17 Tizanidine HCl [Zanaflex] 4 mg PO TID 01/18/18 venlafaxine 150 mg capsule,extended release 24 hr 150 mg PO BID cap 04/06/18 Multivit-Min/Iron/Folic/Lutein [Centrum Silver Women Tablet] 1 tab PO DAILY 0 04/27/18 Topiramate [Topamax] 100 mg PO BID tablet 05/01/18 Glimepiride [Amaryl] 8 mg PO QAM 11/06/18 Dulaglutide [Trulicity] 1.5 mg SQ GOMEZ 01/22/19 Aspirin [Aspirin EC] 81 mg PO DAILY 06/01/20 Atorvastatin Calcium [Lipitor] 40 mg PO DAILY 06/01/20 Levothyroxine Sodium [Synthroid] 300 mcg PO DAILY 06/01/20 Levothyroxine [Synthroid] 25 mcg PO DAILY 06/01/20 Lisinopril 5 mg PO DAILY 06/01/20 Metoprolol Succinate [Toprol Xl] 50 mg PO DAILY 06/01/20 Zolpidem Tartrate [Ambien] 10 mg PO QHS 06/01/20 Insulin Lispro Mix 75-25 Kwkpn 40 units SC BID 06/24/20 Doxycycline 100 mg PO BID 7 Days #14 cap 06/26/20 Following Prescriptions Were Given to Patient: Doxycycline 100 mg PO BID 7 Days #14 cap Transmission Status: Pending to [address] Primary Care Physician: Lissett Begum NP, [employer]MINISTRATOR-C [Primary Care Provider] - Please follow up with your Primary Care Physician in: in 1 week Disposition: Home Minutes spent on discharge:: 40 Patient Condition:: Stable Medical Necessity - Tobacco Use Smoking Status: Never smoker Tobacco Use: Non-smoker Meaningful Use Info Meaningful Use Diagnoses (Choose all that apply): None applicable OBSV E&M: 92141 Observation care discharge
--- NOTE | 2020-06-26 12:30 | NURSING ---
informed of discharge, pt refuses to have iv removed- states i want to wait until i get my toradol. i don't plan on leaving until 3
[2020-06-26 13:24] VITALS: BP 132/85; PULSE 95; RESP 20; TEMP 37.1; O2SAT 100
== END 2020-06-26 16:20 | disposition home or self-care (01) ==
LOC: ED 15:29 → MS2 19:46 → MS3 06-25 19:21
PROVIDERS: Internal Medicine; Admitting Provider Family Medicine; Emergency Provider Emergency Medicine; PCP Nurse Practitioner Primary Care; Visit Provider Internal Medicine
DX: J20.6 Acute bronchitis due to rhinovirus (principal); E66.01 Morbid (severe) obesity due to excess calories; E78.5 Hyperlipidemia, unspecified; G89.4 Chronic pain syndrome; K21.9 Gastro-esophageal reflux disease without esophagitis; I10 Essential (primary) hypertension; E03.9 Hypothyroidism, unspecified; Z68.44 Body mass index [BMI] 60.0-69.9, adult; E11.65 Type 2 diabetes mellitus with hyperglycemia; M79.7 Fibromyalgia; F32.9 Major depressive disorder, single episode, unspecified; K76.0 Fatty (change of) liver, not elsewhere classified; G43.509 Persistent migraine aura without cerebral infarction, not intractable, without status migrainosus; G93.41 Metabolic encephalopathy; F41.0 Panic disorder [episodic paroxysmal anxiety]; Z79.899 Other long term (current) drug therapy; Z79.82 Long term (current) use of aspirin; Z79.4 Long term (current) use of insulin; K42.9 Umbilical hernia without obstruction or gangrene
CPT/HCPCS: 36415; 71045; 71275; 74176; 80048; 80053; 81002; 82728; 82962; 83615; 83735; 83880; 84145; 84484; 85025; 85379; 86140; 87040; 87070; 87077; 87086; 87186; 87205; 87449; 87633; 87635; 93005; 93970; 94640; 96361; 96372; 96374; 96375; 96376; 99218; 99251; 99285; J7030; Q9967; A4216; G0378; G0463; U0002

== ENCOUNTER 2020-09-02 08:58 | Emergency (ER) | payer MEDICAID, SELFPAY ==
[2020-09-02 08:58] VITALS: BP 160/94; PULSE 102; RESP 18; TEMP 36.6; O2SAT 97; BMI 56.5
[2020-09-02 10:00] LABS: Absolute Lymphocyte Count 1.62 X10^3/uL (0.83-4.51); Absolute Neutrophil Count 3.5 X10^3/uL (2.0-7.7); Basophil# 0.03 X10^3/uL; Basophil% 0.5 % (0-1); Eosinophils% 1.8 % (0-5); Hematocrit 42.8 % (37-47); Hemoglobin 14.6 g/dL (12.0-15.0); Lymphocyte # 1.62 X10^3/ul (4.0); Lymphocyte % 28.5 % (19-41); Mean Corp Hgb Conc 34.1 g/dL (32-36); Mean Corpuscular Hgb 32.4 pg (27.0-32.0); Mean Corpuscular Volume 94.9 fL (81-99); Mean Platelet Vol. 10.7 fl (6.2-12.0); Monocyte# 0.38 X10^3/uL; Monocyte% 6.7 % (0-10); NRBC Flagged by Analyzer 0 % (0-5); Neutrophil # 3.51 X10^3/uL (2.7-7.7); Neutrophil % 61.8 % (47-70); Platelet Count 338 K/mm3 (150-450); RBC Distribution Width CV 12.1 % (11.6-14.6); RBC Distribution Width SD 41.9 fl (35.1-43.9); Red Blood Count 4.51 M/mm3 (4.2-5.4); White Blood Count 5.7 K/mm3 (4.4-11.0)
--- NOTE | 2020-09-02 10:07 | ED.VISSUMM ---
- ER Visit Summary Date of Service: 09/02/20 Chief Complaint: Dysuria and flank pain History of Present Illness: The patient is a 45 F who presents with dysuria and flank pain that has been getting worse over the past 2 weeks. Patient states her pain is sharp. Patient states the pain is localized to the bilateral flank areas and suprapubic area. Patient states nothing has been making it better or worse. Patient admits to some dysuria but denies any hematuria. Patient denies any fevers or chills. Patient admits to nausea but denies any vomiting. Patient also admits to a cough with some green sputum. Physical Examination: Vital signs are stable. Patient is afebrile. Patient is in no acute distress. Oral mucosa is pink and moist. Neck is supple. Trachea is midline. There is no JVD. Heart was regular rate and rhythm. Lungs are clear and equal bilaterally. Abdomen is soft. Bowel sounds are normal. There is right CVA tenderness and suprapubic tenderness. There is no rebound or guarding noted. Cranial nerves II through XII are intact. There are no focal motor or sensory deficits. Extremities are intact. There is no calf tenderness noted. Test Results: CBC was within normal limits. Comprehensive metabolic profile showed a glucose of 477. Sodium was 134, potassium was 3.2, and chloride was 95. Urinalysis showed questionable urinary tract infection with 5-10 white blood cells and leukocyte esterase of 25. Portable chest x-ray was obtained. There is 1 view. On my interpretation there are bilateral lower lobe infiltrates. Radiologist also interpreted the x-ray and agrees. COVID-19 rapid antigen was obtained and was negative. Because of the patchy bilateral infiltrates, a send out COVID-19 PCR test was obtained. Emergency Department Course and Treatment: Patient was given a dose of morphine and Phenergan here. Patient was given a dose of insulin. Patient was initially given a dose of Keflex prior to reviewing the chest x-ray. Patient was given a prescription for Levaquin which would cover both the pneumonia and urinary tract infection. Patient's vital signs remained stable during her entire emergency department course, Patient was instructed to follow-up with her primary care physician in 3-5 days. Patient understood and was agreeable with the plan. All questions were answered. Disposition: Discharge home Impression: 1. Pneumonia 2. Urinary tract infection This note was generated with Dragon dictation software. It may contain incorrect words, spelling, and punctuation that were not noted in review of the chart prior to signing ED Disposition - Plan for ED Patient: Diagnosis: Pneumonia, Urinary tract infection Instructions: ED Pneumonia (Adult), ED Bladder Infection, Female (Adult) Prescriptions: Levofloxacin [Levaquin] 750 mg PO DAILY #7 tab [facility]: [facility] [address] Referrals: Lissett Begum THERAPIST OCCUPATIONAL, THERAPIST OCCUPATIONAL-C [Primary Care Provider] - 3-5 Days
[2020-09-02 10:09] LABS: Mucous, Urine 0 SEEN /hpf (<or=2+); Red Blood Cells-Urine 0 SEEN /hpf (0-5)
--- NOTE | 2020-09-02 10:12 | RAD_ITS ---
STUDY: X-RAY CHEST REASON FOR EXAM: Female, 45 years old. COUGH X 1 WEEK. PT ALSO STATES BILATERAL FLANK PAIN. TECHNIQUE: Single AP portable view of the chest. COMPARISON: 06/24/2020 FINDINGS: Bilateral peripheral patchy alveolar opacities consistent with bilateral pneumonia. There is no demonstrated pleural abnormality. Normal size heart. Normal mediastinum and galina. Normal visualized pulmonary arteries. Normal visualized aortic arch and descending thoracic aorta. Normal visualized thoracic spine. Normal visualized ribs, clavicles, and shoulders. There is no demonstrated abnormality of the visualized soft tissue structures of the upper abdomen. RAD/Chest 1 View (Portable) IMPRESSION: Bilateral pneumonia. Electronically Signed: Devonte Luna MD at 10:50 EST Tel , Service support ,
[2020-09-02] MEDS: Morphine 2 MG/ML Syringe IV ×2 (10:18→12:17)
[2020-09-02] MEDS: proMETHazine 25 MG/ML Syringe 6.25 MG IM (10:19)
[2020-09-02 10:24] LABS: Color, Urine Yellow (Yellow); Glucose, Dipstick 1000 mg/dl (Normal); Ketone-Dipstick 5 mg/dl (Negative); Leukocyte Esterase-Dipstick 25 /ul (Negative); Nitrite-Dipstick Negative (Negative); Occult Blood-Urine Negative /ul (Negative); Protein-Dipstick Negative (Negative); Urine Bilirubin Dipstick Negative (Negative); Urine Clarity Clear (Clear); Urine Urobilinogen Normal (Normal); Urine pH 6.5 (5.0 - 8.0)
[2020-09-02 10:32] LABS: ALB/GLOB Ratio 0.6 RATIO (0.9-2.4); AST(SGOT) 55 U/L (15-37); Alanine Aminotransfer ALT/SGPT 30 U/L (13-56); Albumin, Serum 2.9 g/dL (3.2-5.0); Alkaline Phosphatase 74 U/L (45-117); Anion Gap 9 (5-15); BUN 5 mg/dL (7-18); BUN/Creat Ratio 5.2 RATIO (10-20); Calcium,Total 8.9 mg/dL (8.5-10.1); Chloride 95 mmol/L (98-107); Creatinine, Serum 0.96 mg/dL (0.55-1.02); EST Glomerular Filtration Rate 66 mL/min (>60); Est Glom Filt Rate - Afr Amer 80 mL/min (>60); Estimated Creatinine Clearance 78.34 ml/min; Globulin 4.5 g/dL (2.2-4.2); Glucose 477 mg/dL (74-106); Potassium 3.2 mmol/L (3.5-5.1); Protein, Total 7.4 g/dL (6.4-8.2); Sodium Level 134 mmol/L (136-145)
[2020-09-02 10:35] LABS: Squamous Epithelial Cells - UA 0-5 SEEN /hpf (5-10); White Blood Cells 5-10 SEEN /hpf (0-5)
[2020-09-02 10:36] LABS: Bacteria RARE /hpf (None Seen); Yeast-Urine RARE /hpf (None Seen)
[2020-09-02 10:58] VITALS: BP 142/99; PULSE 99; RESP 16
[2020-09-02] MEDS: Cephalexin 250 MG Capsule 500 MG PO (11:31)
[2020-09-02] MEDS: Insulin Lispro 100 UNIT/ML INSULN.PEN 10 UNIT SC (11:31)
== END 2020-09-02 12:30 | disposition home or self-care (01) ==
LOC: ED 10:29
PROVIDERS: Emergency Provider Emergency Medicine; PCP Nurse Practitioner Primary Care
DX: U07.1 COVID-19 (principal); J12.82 Pneumonia due to coronavirus disease 2019; N39.0 Urinary tract infection, site not specified; E66.9 Obesity, unspecified; E11.65 Type 2 diabetes mellitus with hyperglycemia; I25.2 Old myocardial infarction; K21.9 Gastro-esophageal reflux disease without esophagitis; I10 Essential (primary) hypertension; M79.7 Fibromyalgia; F41.9 Anxiety disorder, unspecified; F32.9 Major depressive disorder, single episode, unspecified; G43.909 Migraine, unspecified, not intractable, without status migrainosus; E03.9 Hypothyroidism, unspecified; Z79.4 Long term (current) use of insulin; Z79.82 Long term (current) use of aspirin; Z79.899 Other long term (current) drug therapy
CPT/HCPCS: 71045; 80053; 81001; 85025; 87086; 87088; 87426; 87635; 96372; 96374; 96376; 99285; U0005; A4216; U0003

== ENCOUNTER 2020-10-18 18:05 | Emergency (ER) | payer MEDICAID, SELFPAY ==
[2020-10-18 18:07] VITALS: BP 154/111; PULSE 80; RESP 16; TEMP 35.5; O2SAT 99; BMI 55.7
--- NOTE | 2020-10-18 18:14 | RAD_ITS ---
STUDY: X-RAY - RIGHT SHOULDER REASON FOR EXAM: Female, 45 years old. INJURY/pain TECHNIQUE: 4 view(s) of the shoulder. COMPARISON: None. FINDINGS: Normal glenohumeral articulation. There is mild degenerative arthrosis of the acromioclavicular joint without inferior osseous spur formation. Normal acromion. Benign bone island of the subglenoid scapula. Normal humeral head and visualized proximal humerus. The soft tissue structures are unremarkable. Normal visualized pulmonary apex. RAD/Shoulder min 2 Views IMPRESSION: Negative for fracture or dislocation. Electronically Signed: Becky Bucio MD at 18:46 EST , Service support ,
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
[2020-10-18 19:51] VITALS: PULSE 84; RESP 18; O2SAT 99
[2020-10-18] MEDS: HYDROcodone Bitartrate/Apap 5/325 Tablet PO (20:08)
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
[2020-10-18] MEDS: Ketorolac 60 MG/2 ML Vial IM (21:15)
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
[2020-10-18 21:38] VITALS: RESP 18
== END 2020-10-18 21:38 | disposition home or self-care (01) ==
LOC: ED 19:43
PROVIDERS: Emergency Provider Emergency Medicine; PCP Nurse Practitioner Primary Care
DX: S16.1XXA Strain of muscle, fascia and tendon at neck level, initial encounter (principal); S40.011A Contusion of right shoulder, initial encounter; S80.02XA Contusion of left knee, initial encounter; V89.2XXA Person injured in unspecified motor-vehicle accident, traffic, initial encounter; Y93.9 Activity, unspecified; Y92.9 Unspecified place or not applicable; E11.9 Type 2 diabetes mellitus without complications; Z79.84 Long term (current) use of oral hypoglycemic drugs
CPT/HCPCS: 70450; 72125; 73030; 73562; 96372; 99283

== ENCOUNTER 2020-11-02 16:57 | Outpatient (RCR) | payer MEDICAID, SELFPAY ==
[2020-11-02] MEDS: COVID-19 VACC, MRNA(PFIZER)/PF 30 MCG/0.3 ML SYRINGE IM (15:53)
[2020-11-23] MEDS: COVID-19 VACC, MRNA(PFIZER)/PF 30 MCG/0.3 ML SYRINGE IM (15:28)
== END 2020-11-02 23:59 ==
LOC: IMMUN 16:57
PROVIDERS: PCP Nurse Practitioner Primary Care; Visit Provider Family Medicine
DX: Z23 Encounter for immunization (principal)
CPT/HCPCS: 0001A; 0002A; 91300

== ENCOUNTER 2020-12-03 03:33 | Emergency (ER) | payer MEDICAID, SELFPAY ==
[2020-12-03 03:35] VITALS: BP 164/108; PULSE 122; RESP 19; TEMP 36.5; O2SAT 98; BMI 58.3
[2020-12-03 04:03] VITALS: BP 133/84; PULSE 98; RESP 16; TEMP 36.7; O2SAT 98
--- NOTE | 2020-12-03 04:05 | EKG12_ITS ---
Test Reason : ABDOMINAL PAIN Blood Pressure : / mmHG Vent. Rate : 102 BPM Atrial Rate : 102 BPM P-R Int : 158 ms QRS Dur : 092 ms QT Int : 372 ms P-R-T Axes : 035 016 008 degrees QTc Int : 484 ms Sinus tachycardia Otherwise normal ECG Confirmed by TANIA PRESSLEY, JOESPH ([id number]), subeditor ANNELISE SCHMITZ ([id number]) on 12/05/2020 8:36:58 AM Referred By: ALENA Confirmed By:DAISY MARIN MD
[2020-12-03 04:18] LABS: Absolute Lymphocyte Count 3.82 X10^3/uL (0.83-4.51); Absolute Neutrophil Count 3.5 X10^3/uL (2.0-7.7); Basophil# 0.07 X10^3/uL; Basophil% 0.9 % (0-1); Eosinophil# 0.22 X10^3/uL; Eosinophils% 2.7 % (0-5); Hematocrit 45.5 % (37-47); Hemoglobin 15.5 g/dL (12.0-15.0); Lymphocyte # 3.82 X10^3/ul (0.83-4.51); Mean Corp Hgb Conc 34.1 g/dL (32-36); Mean Corpuscular Hgb 34.1 pg (27.0-32.0); Mean Platelet Vol. 10.4 fl (6.2-12.0); Monocyte# 0.48 X10^3/uL; Monocyte% 5.9 % (0-10); NRBC Flagged by Analyzer 0 % (0-5); Neutrophil # 3.52 X10^3/uL (2.7-7.7); Neutrophil % 43.4 % (47-70); Platelet Count 308 K/mm3 (150-450); RBC Distribution Width SD 47.6 fl (35.1-43.9); Red Blood Count 4.55 M/mm3 (4.2-5.4); White Blood Count 8.1 K/mm3 (4.4-11.0)
[2020-12-03] MEDS: 0.9% Normal Saline 1,000 ML 150 ML IV (04:27)
[2020-12-03] MEDS: proMETHazine 25 MG Tablet PO (04:28)
[2020-12-03] MEDS: Morphine 4 MG/ML Syringe IV (04:28)
[2020-12-03 04:46] LABS: AST(SGOT) 34 U/L (15-37); Alanine Aminotransfer ALT/SGPT 38 U/L (13-56); Albumin, Serum 3.6 g/dL (3.2-5.0); Alkaline Phosphatase 63 U/L (45-117); Anion Gap 8 (5-15); BUN 17 mg/dL (7-18); BUN/Creat Ratio 18.9 RATIO (10-20); Bilirubin, Direct 0.16 mg/dL (0.00-0.30); Calcium,Total 8.9 mg/dL (8.5-10.1); Chloride 102 mmol/L (98-107); EST Glomerular Filtration Rate 71 mL/min (>60); Est Glom Filt Rate - Afr Amer 86 mL/min (>60); Estimated Creatinine Clearance 83.56 ml/min; Globulin 4.3 g/dL (2.2-4.2); Glucose 232 mg/dL (74-106); Lipase 116 U/L (73-393); Potassium 3.9 mmol/L (3.5-5.1); Protein, Total 7.9 g/dL (6.4-8.2); Sodium Level 135 mmol/L (136-145)
[2020-12-03] MEDS: Mag Hydrox/Al Hydrox/Simeth 30 ML UDC PO (05:17)
--- NOTE | 2020-12-03 05:43 | CT_ITS ---
STUDY: CT ABDOMEN AND PELVIS WITHOUT CONTRAST REASON FOR EXAM: Female, 45 years old. pain RADIATION DOSAGE (If Supplied By Facility): CTDIvol = ( 19.59 ) mGy, DLP = ( 2229.87 ) mGycm TECHNIQUE: Transaxial images were obtained from the dome of the diaphragm to the symphysis pubis without oral contrast, and without intravenous contrast. Sagittal and coronal images were reconstructed. Individualized dose optimization techniques were used for this CT. COMPARISON: 06/24/2020 FINDINGS: The visualized lung bases are unremarkable. The visualized portions of the heart are within normal limits. Normal liver. There are surgical clips in the gallbladder fossa consistent with a prior cholecystectomy. Normal spleen. Normal pancreas. Normal bilateral adrenal glands. Normal right kidney. Normal left kidney. Normal visualized stomach. Normal small intestine. Normal colon. There is non-visualization of the appendix. Normal abdominal aorta. Normal inferior vena cava. Normal retroperitoneum. Normal urinary bladder. 8 cm hernia just to the right in the midline of the intra-abdominal wall the level the umbilicus containing some loops of small bowel but without bowel obstruction to suggest bowel obstruction Normal osseous structures. CT/Abdomen/Pelvis without Cont IMPRESSION: No acute abnormality. 8 cm hernia of the anterior abdominal wall just to the right of midline near the umbilicus containing small bowel but without small bowel obstruction. Electronically Signed: Devonte Luna MD at 6:50 EDT Tel , Service support ,
[2020-12-03] MEDS: HYDROmorphone 0.5 MG/0.5 ML SYRINGE IV (05:46)
[2020-12-03 05:49] VITALS: BP 115/84; PULSE 98; RESP 18; O2SAT 99
--- NOTE | 2020-12-03 07:07 | ED.VIS.GEN ---
History of Present Illness Chief Complaint: Abd Pain Informant: Patient Onset: Days - 3 days Context: Gradual Onset Current Severity: Moderate Maximum Severity: Severe Narrative: Patient presents with 3-day history of abdominal pressure. She states has not felt well since receiving her second Covid shot on the eighth. She complains of cough, dizzy spells, and states that the shot site in her left arm is still red. She now has noted over the last 2 or 3 days increased abdominal pain that is worse when she eats or drinks anything. She denies any vomiting but does feel nauseated. Patient states the pain goes through to her back. She has had prior cholecystectomy. She denies history of pancreatitis. - Past Medical History (1) Anxiety and depression Status: Chronic (2) Depression Status: Chronic Comment: Reports she does not like medications for depression. Reports it has been prescribed at various times by her care providers. No interest in counseling. No suicide thoughts or thoughts of hurting others. (3) Diabetes mellitus Status: Chronic Comment: Discussed with patient need to check BG consistently and routinely. Showed her how to check correctly along side of finger and how to improve chances of getting blood sample on low dial. She may be a candidate for leslie system,depending on insurance. We discussed importance of routine care and following medication plan. Her level of anxiety significantly reduce by end of appointment. Instructed to check BG in pairs over the next several days . Will obtain medical records (4) Fibromyalgia Status: Chronic (5) GERD (gastroesophageal reflux disease) Status: Chronic (6) HTN (hypertension) Status: Chronic Past Medical History - Allergies and Home Meds Allergies/Adverse Reactions: Allergies hydroxyzine [From Atarax] Allergy (Verified 12/03/20 03:38) Hives Sulfa (Sulfonamide Antibiotics) Allergy (Verified 12/03/20 03:38) Hives raspberry Adverse Reaction (Verified 12/03/20 03:38) Other [facility] Primary Care Physician: Ken Delacruz MD [STAFF PHYSICIAN] - As Needed Prior records reviewed: Yes Surgical History: - Lives: Spouse/ Significant Other Smoking Status: Never smoker - Family History Maternal Family History: Family History (Last Reviewed 06/01/20 @ 21:[address] Mickey Guardado, DO) Mother Arthritis Breast cancer Heart disease Father Heart disease Alcohol abuse Blood clot in vein Sister Anxiety Depression Brother Anxiety Family History: Reports: Cancer, Heart Disease Paternal Family History: Family History (Last Reviewed 06/01/20 @ 21:[address] Mickey Guardado, DO) Mother Arthritis Breast cancer Heart disease Father Heart disease Alcohol abuse Blood clot in vein Sister Anxiety Depression Brother Anxiety Family History: Reports: Heart Disease, - - Hx VTE. Review of Systems General: Denies: Chills, Fever Eyes: Denies: Visual changes - bilaterally ENT: Denies: Bilateral ear pain, Sore throat Cardiovascular: Denies: Chest pain Respiratory: Reports: Cough. Denies: Dyspnea Gastrointestinal: Reports: Abdominal pain, Nausea. Denies: Vomiting Genitourinary: Denies: Dysuria, Hematuria Musculoskeletal: Denies: Swelling, Extremity Pain Skin: Denies: Rash Hematologic: Denies: Easy bruising, Easy bleeding Allergy: Denies: Uticaria Physical Exam Vital Signs/Narrative: Vital Signs Temp Pulse Resp BP Pulse Ox 12/03/20 05:49 98 18 115/84 H 99 12/03/20 04:03 98.0 F 98 16 133/84 H 98 12/03/20 03:35 97.7 F L 122 H 19 H 164/108 H 98 Inital Vital Signs reviewed: Yes General: Well nourished, Well developed Head: Normocephalic ENT: Moist mucous membranes Neck: Supple Cardiovascular: Regular rate, Regular rhythm Respiratory: No distress, CTA bilaterally Abdomen: Soft, Tender - Epigastric and right upper quadrant tenderness to palpation., Hypoactive bowel sounds. Negative for: Guarding, Rebound tenderness Extremities: Nontender Skin: Normal color Neurological: Alert, Oriented x3 Psychological: - - Anxious Diagnostic/Tx/Re-eval Impressions Abdomen/Pelvis CT 12/03/20 05:43 IMPRESSION: No acute abnormality. 8 cm hernia of the anterior abdominal wall just to the right of midline near the umbilicus containing small bowel but without small bowel obstruction. Electronically Signed: Devonte Luna MD at 6:50 EDT Tel , Service support , 12/03/20 05:43 Abdomen/Pelvis without Cont [CT] Stat Laboratory Results 12/03/20 12/03/20 03:58 03:58 WBC 8.1 RBC 4.55 Hgb 15.5 H Hct 45.5 MCV 100.0 H MCH 34.1 H MCHC 34.1 RDW Std Deviation 47.6 H RDW Coeff of Yajaira 13.0 Plt Count 308 MPV 10.4 Immature Gran % (Auto) 0.100 Neut % (Auto) 43.4 L Lymph % (Auto) 47.0 H Atkinson % (Auto) 5.9 Eos % (Auto) 2.7 Baso % (Auto) 0.9 Absolute Neuts (auto) 3.5 Absolute Lymphs (auto) 3.82 Nucleated RBC % 0 Sodium 135 L Potassium 3.9 Chloride 102 Carbon Dioxide 25.0 Anion Gap 8 BUN 17 Creatinine 0.90 Estim Creat Clear Calc 83.56 Est GFR (MDRD) Af Amer 86 Est GFR (MDRD) Non-Af 71 BUN/Creatinine Ratio 18.9 Glucose 232 H Calcium 8.9 Total Bilirubin 0.40 Direct Bilirubin 0.16 AST 34 ALT 38 Alkaline Phosphatase 63 Troponin I < 0.015 Total Protein 7.9 Albumin 3.6 Globulin 4.3 H Lipase 116 - EKG Initial EKG Interpretation: Sinus Tachycardia - Sinus tach at 102. No acute ischemia. - Medical Decision Making Patient was given morphine and Zofran for pain. Blood work including LFTs, lipase, troponin are unremarkable. Patient continued to complain of pain and was given a GI cocktail followed by a dose of Dilaudid. On repeat examination she is tearful. She truly believes her something wrong in her abdomen. CT scan is ordered with p.o. and IV contrast. Patient declined p.o. contrast because she is allergic to raspberries. The IV infiltrated on scan. CT was read with evidence of anterior abdominal hernia. This was present on a previous CT as well. On final reeval patient was laid completely supine. Area of hernia is palpated and nontender. She has reproducible tenderness in the right upper quadrant, including over the lower ribs on the right. Patient be treated with analgesics and antiemetics at home. She is referred to surgery for follow-up if not improving. ED Disposition - Plan for ED Patient: Disposition: Home or Assisted Living Diagnosis: Abdominal pain Instructions: ED Abdominal Pain Unkn Cause Fem Prescriptions: Oxycodone HCl/Acetaminophen [Percocet 5/325] 1 tablet PO Q6H PRN PRN 3 Days #10 tab PRN Reason: Pain [facility]: [facility]. proMETHazine tablet [Phenergan] 25 mg PO Q6H PRN PRN #10 tab PRN Reason: Nausea Transmission Status: [facility] [facility]. Referrals: Ken Delacruz MD [STAFF PHYSICIAN] - As Needed
[2020-12-03 07:10] VITALS: BP 120/82; PULSE 100; RESP 17; O2SAT 97
[2020-12-03] MEDS: oxyCODONE 5 MG Tablet PO (07:20)
== END 2020-12-03 07:23 | disposition home or self-care (01) ==
PROVIDERS: Emergency Provider Emergency Medicine; PCP Nurse Practitioner Primary Care
DX: R10.9 Unspecified abdominal pain (principal); R05 Cough; R11.0 Nausea; I10 Essential (primary) hypertension; E11.9 Type 2 diabetes mellitus without complications; K21.9 Gastro-esophageal reflux disease without esophagitis; M79.7 Fibromyalgia; F41.9 Anxiety disorder, unspecified; F32.9 Major depressive disorder, single episode, unspecified; Z87.19 Personal history of other diseases of the digestive system; Z90.49 Acquired absence of other specified parts of digestive tract; Z79.82 Long term (current) use of aspirin; Z79.899 Other long term (current) drug therapy
CPT/HCPCS: 74176; 80048; 80076; 83690; 84484; 85025; 93005; 96361; 96374; 96375; 99285; J7030

== ENCOUNTER 2020-12-15 18:32 | Emergency (ER) | payer MEDICAID, SELFPAY ==
[2020-12-15 18:34] VITALS: BP 115/97; PULSE 81; RESP 20; TEMP 36.7; O2SAT 96; BMI 40.4
--- NOTE | 2020-12-15 19:37 | EDS_ITS ---
HPI History of Present Illness Chief Complaint: Other, Pain/Inj Informant: patient Onset/Context/Timing Onset: Days Timing: Continuous Current Severity: Mild Maximum Severity: Mild Narrative Narrative: Morbid obese female with presents with history of Swelling in her left axilla. She has had MRSA x3 before in the past. She states is painful. She denies any fevers. Prior similar symptoms: Yes Recent Illness/Hospitalization: No [facility] Medical History (Updated 12/15/20 @ 22:[address] Aldo Wilson MD) Abscess Anxiety and depression Back problem Carpal tunnel syndrome Diabetes type 2, uncontrolled Fatty liver Fibromyalgia Frequent headaches GERD (gastroesophageal reflux disease) HTN (hypertension) Seasonal allergies Thyroid disease Home Medications oxybutynin chloride 5 mg tablet 5 mg PO TID 10/15/17 [History Last Taken 06/01/20] tizanidine 4 mg PO TID 01/18/18 [History Last Taken 06/01/20] venlafaxine 150 mg capsule,extended release 24 hr 150 mg PO BID cap 04/06/18 [History Last Taken 06/01/20] Centrum Silver Women 1 tab PO DAILY 04/27/18 [History Last Taken 06/01/20] topiramate 100 mg PO BID tablet 05/01/18 [Rx Last Taken 06/01/20] glimepiride 8 mg PO QAM 11/06/18 [History Last Taken 06/01/20] Trulicity 1.5 mg SQ GOMEZ 01/22/19 [History Last Taken 05/28/20] aspirin 81 mg PO DAILY 06/01/20 [History Last Taken 06/01/20] atorvastatin 40 mg PO DAILY 06/01/20 [History Last Taken Unknown] levothyroxine 25 mcg PO DAILY 06/01/20 [History Last Taken 06/01/20] levothyroxine 300 mcg PO DAILY 06/01/20 [History Last Taken 06/01/20 .] lisinopril 10 mg PO DAILY 06/01/20 [History Last Taken 06/01/20] metoprolol succinate 50 mg PO BID 06/01/20 [History Last Taken 06/01/20] zolpidem 10 mg PO QHS 06/01/20 [History Last Taken 05/31/20] Insulin Lispro Mix 75-25 Kwkpn 60 units SC BID 06/24/20 [History Last Taken Unknown] cyclobenzaprine 10 mg PO TID PRN #20 tab 10/18/20 [Rx Last Taken Unknown] promethazine 25 mg PO Q6H PRN PRN #10 tab 12/03/20 [Rx Last Taken Unknown] clindamycin HCl [Cleocin HCl] 300 mg PO Q6H #28 cap 12/15/20 [Rx Last Taken Unknown] hydrocodone-acetaminophen 1 tab PO Q6H PRN 3 Days #14 tab MDD 6 12/15/20 [Rx Last Taken Unknown] Allergy/AdvReac Type Severity Reaction Status Date / Time hydroxyzine [From Atarax] Allergy Hives Verified 12/15/20 18:34 Sulfa (Sulfonamide Allergy Hives Verified 12/15/20 18:34 Antibiotics) raspberry AdvReac Other Verified 12/15/20 18:34 Family History Mother Arthritis Breast cancer Heart disease Father Heart disease Alcohol abuse Blood clot in vein Sister Anxiety Depression Brother Anxiety Surgical History cervical lymph node excision H/O hernia repair H/O sinus surgery H/O thyroidectomy H/O: History of incision and drainage Hx of appendectomy Hx of cholecystectomy l toe surgery S/P bronchoscopy S/P RUTH (total abdominal hysterectomy) Social History Smoking Status: Never smoker alcohol intake: current alcohol intake frequency: holidays/special occasions only substance use type: does not use ROS ROS ED Review of Systems ROS Unobtainable: Denies due to encephalopathy, due to endotracheal tube, due to mental condition, due to mental status or other Constitutional Constitutional ED: Denies fever(s) Eyes Eyes: Denies change in vision ENT ENT ED: Denies sore throat Cardiovascular Cardiovascular: Denies chest pain Respiratory/Chest Respiratory/Chest: Denies dyspnea Gastrointestinal Gastrointestinal: Denies abdominal pain Genitourinary Genitourinary ED: Denies dysuria Musculoskeletal Musculoskeletal: Denies myalgias Integumentary Reports abscess; Denies rash Neurologic Neurologic: Denies headache(s) Psychiatric Psychiatric: Denies depression Endocrine Endocrinology: Denies polyuria Allergic/Immunologic Allergic/Immunologic ED: Denies urticaria EXAM Physical Exam Narrative Exam Narrative: Middle-aged morbidly obese female history of anxiety, fibromyalgia and hypertension. Patient also has diabetes. States she is having painful lumps underneath her left axilla over the last 5 days. She is concerned her abscesses. Const Vital Signs: 12/15/20 18:34 Temperature 98.1 F Temperature Source Temporal Pulse Rate 81 Respiratory Rate 20 H Blood Pressure 115/97 H Blood Pressure Mean 103 Pulse Ox 96 Oxygen Delivery Method Room Air Positive well nourished and obese Nutritional Appearance: obese Eyes PERRL and EOMs intact bilaterally Neck no lymphadenopathy and supple Chest Wall inspection of chest normal Resp normal respiratory effort Cardio regular rate, regular rhythm and no murmurs GI normal to inspection, nondistended, normoactive bowel sounds, non-tender and non-distended Auscultation: normoactive bowel sounds Palpation: soft Back/Spine no CVA tenderness Extremity normal to inspection Extremity Narrative: Tenderness left axilla with normal shoe small abscesses. Tender to palpation. No significant cellulitis. No drainage at this time. Neuro oriented x3 Sensorium / Orientation: alert Motor Exam: strength 5/5 throughout Psych mental status grossly normal Skin no rashes or lesions noted MDM MDM MDM Narrative Medical decision making narrative: 45-year-old female with left axillary small abscesses. Will attempt incision and drainage per patient request. She will be treated with Spencer for pain here. Lab and local anesthetic with subcu lidocaine. Repeat exam patient doing well. She will be discharged home. Glucose was 229. Lab Data Labs: Laboratory Results - last 24 hr 12/15/20 20:01 POC Glucose 229 H Procedures Other Procedures Procedure(s): Incision and drainage of left axilla subcu abscesses x3 Let was applied to each area. Clean. Locally anesthetized with lidocaine. Small 1-1 and half centimeter incisions were made. Approximately 1 cc of pus was expressed from each site. Patient tolerated procedure well. Discharge Plan Triage Chief Complaint: Other, Pain/Inj ED Provider: Aldo Wilson Dx/Rx/DC Orders Clinical Impression: Abscess Instructions: ED Abscess Incision And Drainage Prescriptions: New clindamycin HCl [Cleocin HCl] 300 mg capsule 300 mg PO Q6H Qty: 28 RF: 0 hydrocodone-acetaminophen 5-325 mg tablet 1 tab PO Q6H MDD 6 PRN (Reason: pain) 3 Days Qty: 14 RF: 0 No Action oxybutynin chloride 5 mg tablet 5 mg PO TID RF: 0 venlafaxine 150 mg capsule,extended release 24hr 150 mg PO BID RF: 0 tizanidine 4 MG tablet 4 mg PO TID RF: 0 Centrum Silver Women 1 EACH tablet 1 tab PO DAILY RF: 0 topiramate 100 MG tablet 100 mg PO BID RF: 0 glimepiride 2 MG tablet 8 mg PO QAM RF: 0 Trulicity 1.5 MG/0.5 ML pen injector 1.5 mg SQ GOMEZ RF: 0 aspirin 81 MG tablet,delayed release (DR/EC) 81 mg PO DAILY RF: 0 atorvastatin 40 MG tablet 40 mg PO DAILY RF: 0 levothyroxine 300 MCG tablet 300 mcg PO DAILY RF: 0 levothyroxine 25 MCG tablet 25 mcg PO DAILY RF: 0 lisinopril 5 MG tablet 10 mg PO DAILY RF: 0 zolpidem 10 MG tablet 10 mg PO QHS RF: 0 metoprolol succinate 50 MG tablet extended release 24 hr 50 mg PO BID RF: 0 Insulin Lispro Mix 75-25 Kwkpn 60 units SC BID RF: 0 cyclobenzaprine 10 MG tablet 10 mg PO TID PRN (Reason: Muscle Spasm) Qty: 20 RF: 0 promethazine 25 MG tablet 25 mg PO Q6H PRN PRN (Reason: Nausea) Qty: 10 RF: 0 Primary Care Provider: Lissett Begum NP Referrals: Lissett Begum NP, [employer]BLER-[employer] [Primary Care Provider] - 3-5 Days Disposition Disposition: Home, self care
[2020-12-15] MEDS: Lidocaine/Epi/Tetracaine 50 ML 1 APPLIC TOPICAL (19:42)
[2020-12-15] MEDS: HYDROcodone Bitartrate/Apap 5/325 Tablet PO ×2 (20:02→22:31)
[2020-12-15 20:11] LABS: Bedside Glucose 229 mg/dL (70-110)
[2020-12-15] MEDS: Lidocaine 1% (20 ml mdv) 20 ML Vial 10 ML INFILT (22:28)
[2020-12-15] MEDS: Clindamycin HCl 150 MG Capsule 300 MG PO (22:31)
== END 2020-12-15 22:40 | disposition home or self-care (01) ==
PROVIDERS: Emergency Provider Emergency Medicine; PCP Nurse Practitioner Primary Care
DX: L02.412 Cutaneous abscess of left axilla (principal); I10 Essential (primary) hypertension; E66.01 Morbid (severe) obesity due to excess calories; Z68.41 Body mass index [BMI] 40.0-44.9, adult; F41.9 Anxiety disorder, unspecified; F32.9 Major depressive disorder, single episode, unspecified; G56.00 Carpal tunnel syndrome, unspecified upper limb; E11.9 Type 2 diabetes mellitus without complications; K76.0 Fatty (change of) liver, not elsewhere classified; M79.7 Fibromyalgia; K21.9 Gastro-esophageal reflux disease without esophagitis; J30.2 Other seasonal allergic rhinitis; E07.9 Disorder of thyroid, unspecified; Z86.14 Personal history of Methicillin resistant Staphylococcus aureus infection; Z79.4 Long term (current) use of insulin; Z79.82 Long term (current) use of aspirin; Z79.899 Other long term (current) drug therapy
CPT/HCPCS: 10060; 82962; 99283

== ENCOUNTER → 2021-01-08 | Outpatient (CLI) | payer MEDICAID, SELFPAY ==
[2020-12-15 18:34] VITALS: BMI 40.4
== END | disposition home or self-care (01) ==
LOC: LABSPEC 16:23
PROVIDERS: PCP Nurse Practitioner Primary Care; Referring Provider Otolaryngology; Visit Provider Otolaryngology
DX: J32.9 Chronic sinusitis, unspecified (principal)
CPT/HCPCS: 87070; 87205

== ENCOUNTER 2021-01-10 03:57 | Observation (INO) | payer MEDICAID, SELFPAY ==
[2021-01-10] VITALS (18 sets, daily range): BP systolic 106–149; BP diastolic 62–92; PULSE 76–89; RESP 12–20; TEMP 36.5–36.9; O2SAT 96–100; BMI 58.3; BMI 60.1
--- NOTE | 2021-01-10 04:10 | RAD_ITS ---
STUDY: X-RAY CHEST REASON FOR EXAM: Female, 45 years old. Chest pain TECHNIQUE: Single AP portable view of the chest. COMPARISON: September 02, 2020 chest x-ray FINDINGS: Since prior study there is been resolve of the peripheral infiltrates that were seen on prior study. There is no demonstrated pleural abnormality. Normal size heart. Normal mediastinum and galina. Normal visualized pulmonary arteries. Normal visualized aortic arch and descending thoracic aorta. Normal visualized thoracic spine. Normal visualized ribs, clavicles, and shoulders. There is no demonstrated abnormality of the visualized soft tissue structures of the upper abdomen. RAD/Chest 1 View (Portable) IMPRESSION: Improved aeration of the lungs. Infiltrate seen on prior study are no longer visualized. Electronically Signed: Sharonda Nance MD at 5:29 EDT Tel , Service support ,
--- NOTE | 2021-01-10 04:10 | EKG12_ITS ---
Test Reason : CP Blood Pressure : / mmHG Vent. Rate : 085 BPM Atrial Rate : 085 BPM P-R Int : 160 ms QRS Dur : 094 ms QT Int : 390 ms P-R-T Axes : -01 025 010 degrees QTc Int : 464 ms Normal sinus rhythm Low voltage QRS Borderline ECG Confirmed by KHADIJAH PRESSLEY, ISMA ([id number]), technical writer and editor ANNELISE SCHMITZ ([id number]) on 01/11/2021 11:13:46 AM Referred By: BE Confirmed By:ISMA LUCIO MD
--- NOTE | 2021-01-10 04:12 | EDS_ITS ---
HPI History of Present Illness Chief Complaint: Chest Pain Informant: patient Onset/Context/Timing Onset: Today Timing: Continuous Quality: Positive for Pain Location: Substernal Current Severity: 7/10 Maximum Severity: 7/10 Worsened By: Exertion Relieved By: Nothing Associated Symptoms: Positive for Nausea, Diaphoresis and Dyspnea; Negative for Vomiting, Cough and Fever Narrative Prior Similar Symptoms: Yes and With Prior CT CVD Risk Factors: Positive for Hypertension, Diabetes, Hypercholesterolemia and Family History 1' </=55; Negative for Smoking PFSH [facility] Medical History Abscess Anxiety and depression Back problem Carpal tunnel syndrome Diabetes type 2, uncontrolled Fatty liver Fibromyalgia Frequent headaches GERD (gastroesophageal reflux disease) HTN (hypertension) Seasonal allergies Thyroid disease Home Medications oxybutynin chloride 5 mg tablet 5 mg PO TID 10/15/17 [History Last Taken 06/01/20] tizanidine 4 mg PO TID 01/18/18 [History Last Taken 06/01/20] venlafaxine 150 mg capsule,extended release 24 hr 150 mg PO BID cap 04/06/18 [History Last Taken 06/01/20] Centrum Silver Women 1 tab PO DAILY 04/27/18 [History Last Taken 06/01/20] topiramate 100 mg PO BID tablet 05/01/18 [Rx Last Taken 06/01/20] glimepiride 8 mg PO QAM 11/06/18 [History Last Taken 06/01/20] Trulicity 1.5 mg SQ GOMEZ 01/22/19 [History Last Taken 05/28/20] aspirin 81 mg PO DAILY 06/01/20 [History Last Taken 06/01/20] atorvastatin 40 mg PO DAILY 06/01/20 [History Last Taken Unknown] levothyroxine 25 mcg PO DAILY 06/01/20 [History Last Taken 06/01/20] levothyroxine 300 mcg PO DAILY 06/01/20 [History Last Taken 06/01/20 .] lisinopril 10 mg PO DAILY 06/01/20 [History Last Taken 06/01/20] metoprolol succinate 50 mg PO BID 06/01/20 [History Last Taken 06/01/20] zolpidem 10 mg PO QHS 06/01/20 [History Last Taken 05/31/20] Insulin Lispro Mix 75-25 Kwkpn 50 units SC BID 06/24/20 [History Last Taken Unknown] promethazine 25 mg PO Q6H PRN PRN #10 tab 12/03/20 [Rx Last Taken Unknown] clindamycin HCl [Cleocin HCl] 300 mg PO Q6H #28 cap 12/15/20 [Rx Last Taken Unknown] hydrocodone-acetaminophen 1 tab PO Q12H PRN PRN MDD 6 01/10/21 [History Last Taken Unknown] Allergy/AdvReac Type Severity Reaction Status Date / Time hydroxyzine [From Atarax] Allergy Hives Verified 01/10/21 04:01 Sulfa (Sulfonamide Allergy Hives Verified 01/10/21 04:01 Antibiotics) raspberry AdvReac Other Verified 01/10/21 04:01 Family History Mother Arthritis Breast cancer Heart disease Father Heart disease Alcohol abuse Blood clot in vein Sister Anxiety Depression Brother Anxiety Surgical History cervical lymph node excision H/O hernia repair H/O sinus surgery H/O thyroidectomy H/O: History of incision and drainage Hx of appendectomy Hx of cholecystectomy l toe surgery S/P bronchoscopy S/P RUTH (total abdominal hysterectomy) Social History Smoking Status: Never smoker alcohol intake: current alcohol intake frequency: holidays/special occasions only substance use type: does not use ROS ROS ED Constitutional Constitutional ED: Denies fever(s) Eyes Eyes: Denies change in vision ENT ENT ED: Denies rhinorrhea or sore throat Cardiovascular Cardiovascular: Reports chest pain; Denies palpitations Respiratory/Chest Respiratory/Chest: Reports dyspnea; Denies cough Gastrointestinal Gastrointestinal: Reports nausea; Denies abdominal pain, diarrhea or vomiting Genitourinary Genitourinary ED: Denies dysuria Musculoskeletal Musculoskeletal: Denies myalgias Integumentary Denies rash Neurologic Neurologic: Denies headache(s) Psychiatric Psychiatric: Denies suicidal thoughts EXAM Physical Exam Const Vital Signs: 01/10/21 03:57 01/10/21 04:01 01/10/21 04:25 Temperature 98.5 F Temperature Source Oral Pulse Rate 86 Respiratory Rate 18 Respiratory Effort Normal Respiratory Pattern Normal Blood Pressure 121/74 H Blood Pressure Mean 89 Pulse Ox 99 Oxygen Delivery Method Room Air Room Air 01/10/21 05:39 Temperature Temperature Source Pulse Rate 86 Respiratory Rate 16 Respiratory Effort Respiratory Pattern Blood Pressure 114/76 Blood Pressure Mean 88 Pulse Ox 100 Oxygen Delivery Method Room Air Positive well nourished and well developed General Appearance ED: well developed HEENT Reports normocephalic and head/scalp atraumatic Eyes PERRL and EOMs intact bilaterally Neck supple General: Negative for tenderness Chest Wall inspection of chest normal Resp normal respiratory effort and clear to auscultation bilaterally Cardio regular rate and regular rhythm GI non-tender and non-distended Palpation: soft; Negative for guarding or rebound tenderness present no CVA tenderness Extremity normal to inspection Neuro oriented x3 Sensorium / Orientation: alert Psych mental status grossly normal Heart Score History: Moderately Suspicious ECG: Normal Age: >45 - <65 years Risk Factors: >/= 3 Risk Factors or History of CAD Score: 4 MDM MDM MDM Narrative Medical decision making narrative: Patient took 4 aspirin just prior to arrival. She was given Morphine, Zofran IV. She is resting comfortably on re- evaluation. Discussed with hospitalist for observation. Lab Data Attestation: I reviewed the patient's lab results. Labs: Laboratory Results - last 24 hr 01/10/21 01/10/21 04:56 04:56 WBC 8.8 RBC 4.02 L Hgb 13.3 Hct 39.2 MCV 97.5 MCH 33.1 H MCHC 33.9 RDW Std Deviation 43.4 RDW Coeff of Yajaira 11.9 Plt Count 194 MPV 10.0 Immature Gran % (Auto) 0.200 Neut % (Auto) 56.1 Lymph % (Auto) 34.0 [place] % (Auto) 6.9 Eos % (Auto) 2.2 Baso % (Auto) 0.6 Absolute Neuts (auto) 4.9 Absolute Lymphs (auto) 2.99 Nucleated RBC % 0 Sodium 136 Potassium 4.3 Chloride 109 H Carbon Dioxide 20.0 L Anion Gap 7 BUN 17 Creatinine 0.91 Estim Creat Clear Calc 82.65 Est GFR (MDRD) Af Amer 85 Est GFR (MDRD) Non-Af 71 BUN/Creatinine Ratio 18.7 Glucose 68 L Calcium 8.6 Troponin I < 0.015 Radiography Chest X-Ray - ED: 1 View, Read by ED Physician and Read by Radiologist Diagnostic Testing: Radiology Impression Chest X-Ray 01/10/21 04:10 IMPRESSION: Improved aeration of the lungs. Infiltrate seen on prior study are no longer visualized. Electronically Signed: Sharonda Nance MD at 5:29 EDT Tel , Service support , EKG Initial EKG: Attestation: I personally reviewed and interpreted this EKG as follows: Interpretation: Sinus Rhythm and No Acute Injury Pattern Prior EKG tracings: available for review Prior: Unchanged Discharge Plan Triage Chief Complaint: Chest Pain ED Provider: Danielle Cruz Dx/Rx/DC Orders Clinical Impression: Chest pain Prescriptions: No Action oxybutynin chloride 5 mg tablet 5 mg PO TID RF: 0 venlafaxine 150 mg capsule,extended release 24hr 150 mg PO BID RF: 0 tizanidine 4 MG tablet 4 mg PO TID RF: 0 Centrum Silver Women 1 EACH tablet 1 tab PO DAILY RF: 0 topiramate 100 MG tablet 100 mg PO BID RF: 0 glimepiride 2 MG tablet 8 mg PO QAM RF: 0 Trulicity 1.5 MG/0.5 ML pen injector 1.5 mg SQ GOMEZ RF: 0 aspirin 81 MG tablet,delayed release (DR/EC) 81 mg PO DAILY RF: 0 atorvastatin 40 MG tablet 40 mg PO DAILY RF: 0 levothyroxine 300 MCG tablet 300 mcg PO DAILY RF: 0 levothyroxine 25 MCG tablet 25 mcg PO DAILY RF: 0 lisinopril 5 MG tablet 10 mg PO DAILY RF: 0 zolpidem 10 MG tablet 10 mg PO QHS RF: 0 metoprolol succinate 50 MG tablet extended release 24 hr 50 mg PO BID RF: 0 Insulin Lispro Mix 75-25 Kwkpn 50 units SC BID RF: 0 promethazine 25 MG tablet 25 mg PO Q6H PRN PRN (Reason: Nausea) Qty: 10 RF: 0 clindamycin HCl [Cleocin HCl] 300 mg capsule 300 mg PO Q6H Qty: 28 RF: 0 hydrocodone-acetaminophen 5-325 mg tablet 1 tab PO Q12H PRN MDD 6 PRN (Reason: pain) RF: 0 Primary Care Provider: Lissett Begum NP Referrals: Lissett Begum NP, M[employer]ING AND [employer]PENSING SUPERVISOR-[employer] [Primary Care Provider] - Disposition Disposition: Acute Care Hospital [facility]
[2021-01-10] MEDS: Morphine 4 MG/ML Syringe IV ×2 (04:38→05:36)
[2021-01-10] MEDS: Ondansetron 4 MG/2 ML Vial IV ×2 (04:38→10:44)
[2021-01-10 05:07] LABS: Absolute Lymphocyte Count 2.99 X10^3/uL (0.83-4.51); Absolute Neutrophil Count 4.9 X10^3/uL (2.0-7.7); Basophil# 0.05 X10^3/uL; Basophil% 0.6 % (0-1); Eosinophil# 0.19 X10^3/uL; Eosinophils% 2.2 % (0-5); Hematocrit 39.2 % (37-47); Hemoglobin 13.3 g/dL (12.0-15.0); Lymphocyte # 2.99 X10^3/ul (0.83-4.51); Mean Corp Hgb Conc 33.9 g/dL (32-36); Mean Corpuscular Hgb 33.1 pg (27.0-32.0); Mean Corpuscular Volume 97.5 fL (81-99); Monocyte# 0.61 X10^3/uL; Monocyte% 6.9 % (0-10); NRBC Flagged by Analyzer 0 % (0-5); Neutrophil # 4.93 X10^3/uL (2.7-7.7); Neutrophil % 56.1 % (47-70); Platelet Count 194 K/mm3 (150-450); RBC Distribution Width CV 11.9 % (11.6-14.6); RBC Distribution Width SD 43.4 fl (35.1-43.9); Red Blood Count 4.02 M/mm3 (4.2-5.4); White Blood Count 8.8 K/mm3 (4.4-11.0)
[2021-01-10 05:26] LABS: Anion Gap 7 (5-15); BUN 17 mg/dL (7-18); BUN/Creat Ratio 18.7 RATIO (10-20); Calcium,Total 8.6 mg/dL (8.5-10.1); Chloride 109 mmol/L (98-107); Creatinine, Serum 0.91 mg/dL (0.55-1.02); EST Glomerular Filtration Rate 71 mL/min (>60); Est Glom Filt Rate - Afr Amer 85 mL/min (>60); Estimated Creatinine Clearance 82.65 ml/min; Glucose 68 mg/dL (74-106); Potassium 4.3 mmol/L (3.5-5.1); Sodium Level 136 mmol/L (136-145)
--- NOTE | 2021-01-10 05:53 | ED.RN ---
PT AWARE OF TWO VISITOR POLICY. SHE ASKED IF HER 2 YO GRANDDAUGHTER COULD COME VISIT AND WAS EDUCATED.
--- NOTE | 2021-01-10 05:55 | HP.PCM.HOS_ITS ---
[facility] - General General Date of Admission: 01/10/21 Date of Service: 01/10/21 Chief Complaint: Chest pain. [facility] Narrative ROMIE JIMENEZ, is a 45 F with past medical history as mentioned below presented to the emergency room because of chest pain. Her symptoms started around 3 AM this morning when she was sleeping, woke up from sleep because of chest pain, left-sided chest pain, sharp pain, 7 out of 10 in severity, radiates to her neck and left arm, associated with shortness of breath, sweating and nausea and without aggravating or relieving factors. She mentioned that she has history of heart attack in the past but no cardiac interventions were performed. In the emergency department, her vital signs were stable. Her routine blood work was unremarkable. EKG revealed normal sinus rhythm, no acute ischemic changes. Chest x-ray showed no acute findings. Troponin was negative. She is being admitted for chest pain for evaluation. [facility] Medical History (Updated 01/10/21 @ 05:[address] Juan C Del Rosario MD) Anxiety and depression Carpal tunnel syndrome Diabetes type 2, uncontrolled Fatty liver Fibromyalgia GERD (gastroesophageal reflux disease) HTN (hypertension) Seasonal allergies Thyroid disease Home Medications oxybutynin chloride 5 mg tablet 5 mg PO TID 10/15/17 [History Last Taken 06/01/20] tizanidine 4 mg PO TID 01/18/18 [History Last Taken 06/01/20] venlafaxine 150 mg capsule,extended release 24 hr 150 mg PO BID cap 04/06/18 [History Last Taken 06/01/20] Centrum Silver Women 1 tab PO DAILY 04/27/18 [History Last Taken 06/01/20] topiramate 100 mg PO BID tablet 05/01/18 [Rx Last Taken 06/01/20] glimepiride 8 mg PO QAM 11/06/18 [History Last Taken 06/01/20] Trulicity 1.5 mg SQ GOMEZ 01/22/19 [History Last Taken 05/28/20] aspirin 81 mg PO DAILY 06/01/20 [History Last Taken 06/01/20] atorvastatin 40 mg PO DAILY 06/01/20 [History Last Taken Unknown] levothyroxine 25 mcg PO DAILY 06/01/20 [History Last Taken 06/01/20] levothyroxine 300 mcg PO DAILY 06/01/20 [History Last Taken 06/01/20 .] lisinopril 10 mg PO DAILY 06/01/20 [History Last Taken 06/01/20] metoprolol succinate 50 mg PO BID 06/01/20 [History Last Taken 06/01/20] zolpidem 10 mg PO QHS 06/01/20 [History Last Taken 05/31/20] Insulin Lispro Mix 75-25 Kwkpn 50 units SC BID 06/24/20 [History Last Taken Unknown] promethazine 25 mg PO Q6H PRN PRN #10 tab 12/03/20 [Rx Last Taken Unknown] clindamycin HCl [Cleocin HCl] 300 mg PO Q6H #28 cap 12/15/20 [Rx Last Taken Unknown] hydrocodone-acetaminophen 1 tab PO Q12H PRN PRN MDD 6 01/10/21 [History Last Taken Unknown] Allergy/AdvReac Type Severity Reaction Status Date / Time hydroxyzine [From Atarax] Allergy Hives Verified 01/10/21 04:01 Sulfa (Sulfonamide Allergy Hives Verified 01/10/21 04:01 Antibiotics) raspberry AdvReac Other Verified 01/10/21 04:01 Family History Mother Arthritis Breast cancer Heart disease Father Heart disease Alcohol abuse Blood clot in vein Sister Anxiety Depression Brother Anxiety Surgical History cervical lymph node excision H/O hernia repair H/O sinus surgery H/O thyroidectomy H/O: History of incision and drainage Hx of appendectomy Hx of cholecystectomy l toe surgery S/P bronchoscopy S/P RUTH (total abdominal hysterectomy) Social History Smoking Status: Never smoker alcohol intake: current alcohol intake frequency: holidays/special occasions only substance use type: does not use ROS Constitutional Constitutional: Denies anorexia, chills, fatigue, fever(s) or malaise Eyes Eyes: Denies blurry vision, change in eye color, change in vision, double vision or eye pain ENT HEENT: Denies ear pain, epistaxis, headache(s), nasal congestion, post nasal drip or sore throat Cardiovascular Cardiovascular: Reports chest pain and lightheadedness; Denies edema, orthopnea, palpitations or syncope Respiratory/Chest Respiratory/Chest: Reports dyspnea; Denies cough, hemoptysis, productive cough, shortness of breath at rest, shortness of breath with exertion or wheezing Gastrointestinal Gastrointestinal: Reports nausea; Denies abdominal pain, constipation, diarrhea, hematemesis or hematochezia Genitourinary Genitourinary: Denies burning urination, dysuria, hematuria, urinary hesitancy or urinary urgency Musculoskeletal Musculoskeletal: Denies arthralgias, back pain, joint pain, joint swelling, myal gias or neck pain Neurologic Neurologic: Denies confusion, dizziness, focal weakness, headache(s), numbness, paresthesias, seizures, tingling or tremor(s) Psychiatric Psychiatric: Denies anxiety, depression, hallucinations, homicidal ideation or suicidal ideation Endocrine Endocrinology: Denies change in body appearance, cold intolerance, heat intolerance, polydipsia or polyuria Hematologic/Lymphatic Hematologic/Lymphatic: Denies easy bleeding, easy bruising or lymphadenopathy Allergic/Immunologic Allergic/Immunologic: Denies itchy eyes, rhinitis, throat swelling, tongue swelling, hives, urticaria or wheezing Vital Signs Vital Signs Vital Signs: 01/10/21 03:57 01/10/21 04:01 01/10/21 04:25 Temperature 98.5 F Temperature Source Oral Pulse Rate 86 Respiratory Rate 18 Respiratory Effort Normal Respiratory Pattern Normal Blood Pressure 121/74 H Blood Pressure Mean 89 Pulse Ox 99 Oxygen Delivery Method Room Air Room Air 01/10/21 05:39 01/10/21 05:54 Temperature 98.5 F Temperature Source Oral Pulse Rate 86 86 Respiratory Rate 16 16 Respiratory Effort Respiratory Pattern Blood Pressure 114/76 114/76 Blood Pressure Mean 88 88 Pulse Ox 100 100 Oxygen Delivery Method Room Air Room Air Weight Weight: 406 lb 4.991 oz Body Mass Index (BMI) 58.3 Physical Exam Const alert, oriented x3, no apparent distress and no limitations General Appearance: cooperative, comfortable and well kempt HEENT normocephalic, head/scalp atraumatic and moist oral mucous membranes Head and Scalp: normocephalic and atraumatic Eyes PERRL, EOMs intact bilaterally, conjunctivae normal and no scleral icterus General Eye: normal appearance of both eyes Periorbital: periorbital findings normal Neck no lymphadenopathy, supple, no meningeal signs, no JVD and no carotid bruits General: trachea midline Thyroid: thyroid normal Resp normal respiratory effort, normal air movement and clear to auscultation bilaterally Auscultation: Negative for crackles, rales, rhonchi or wheezes Cardio regular rate, regular rhythm, S1 normal heart sound, S2 normal heart sound, no murmurs and no JVD Peripheral Pulses: pulses 2+ throughout GI normal to inspection, nondistended, normoactive bowel sounds, soft to palpation, non-tender and non-distended; Negative for hepatosplenomegaly GI Narrative: Morbidly obese. Auscultation: normoactive bowel sounds Extremity normal to inspection, full ROM and no clubbing, cyanosis or edema Skin no rashes or lesions noted, no wounds and no petechiae Neuro oriented x3, CN's II-XII intact bilaterally and moves all extremities Sensorium / Orientation: alert Speech: speech normal Motor Exam: strength 5/5 throughout Psych mental status grossly normal, affect normal and denies hallucinations Lab / Micro Data Result Diagrams: 01/10/21 04:56 01/10/21 04:56 Labs: Laboratory Results - last 24 hr 01/10/21 01/10/21 04:56 04:56 WBC 8.8 RBC 4.02 L Hgb 13.3 Hct 39.2 MCV 97.5 MCH 33.1 H MCHC 33.9 RDW Std Deviation 43.4 RDW Coeff of Yajaira 11.9 Plt Count 194 MPV 10.0 Immature Gran % (Auto) 0.200 Neut % (Auto) 56.1 Lymph % (Auto) 34.0 [place] % (Auto) 6.9 Eos % (Auto) 2.2 Baso % (Auto) 0.6 Absolute Neuts (auto) 4.9 Absolute Lymphs (auto) 2.99 Nucleated RBC % 0 Sodium 136 Potassium 4.3 Chloride 109 H Carbon Dioxide 20.0 L Anion Gap 7 BUN 17 Creatinine 0.91 Estim Creat Clear Calc 82.65 Est GFR (MDRD) Af Amer 85 Est GFR (MDRD) Non-Af 71 BUN/Creatinine Ratio 18.7 Glucose 68 L Calcium 8.6 Troponin I < 0.015 Radiology Impression Chest X-Ray 01/10/21 04:10 IMPRESSION: Improved aeration of the lungs. Infiltrate seen on prior study are no longer visualized. Electronically Signed: Sharonda Nance MD at 5:29 EDT Tel , Service support , Assessment & Plan Assessment/Plan (1) Chest pain: (2) Diabetes type 2, uncontrolled: QUALIFIERS: Glycemic state: with hyperglycemia Qualified Code(s): E11.65 - Type 2 diabetes mellitus with hyperglycemia (3) HTN (hypertension): QUALIFIERS: Hypertension type: essential hypertension Qualified Code(s): I10 - Essential (primary) hypertension (4) Thyroid disease: (5) GERD (gastroesophageal reflux disease): QUALIFIERS: Esophagitis presence: esophagitis presence not specified Qualified Code(s): K21.9 - Gastro-esophageal reflux disease without esophagitis (6) Anxiety and depression: PLAN: This is a 45 years old female patient presented to the emergency room because of chest pain and she is being admitted for evaluation. #1 chest pain: Risk factors are morbid obesity, diabetes and hypertension. Patient stated she had history of heart attack in the past but no cardiac interventions. Initial EKG and troponin was negative. Chest x-ray showed no acute findings. Vital signs are stable. Plan: Admit to PCU for observation, cardiac monitoring, serial cardiac enzymes, Tylenol as needed, Zofran as needed, sublingual nitro as needed, nuclear stress test tomorrow morning if cardiac enzymes are negative, continue aspirin and statins. #2 type 2 diabetes mellitus: ADA diet, Accu-Cheks, insulin sliding scale, continue home doses of insulin glimepiride. #3 hypertension: Blood pressure stable, continue home medications. #4 hypothyroidism: Continue levothyroxine. #5 DVT prophylaxis: Subcu Lovenox. This note was generated with [employer] dictation software. It may contain incorrect words, spelling, and punctuation that were not noted in checking the note before signing. Visit Charges OBSV E&M: 17919 Initial observation care L2
[2021-01-10] MEDS: Nitroglycerin (INPATIENT USE) 0.4 MG TAB.SUBL SL ×3 (06:40→06:56)
[2021-01-10] MEDS: Levothyroxine 25 MCG TABLET PO (06:43)
[2021-01-10] MEDS: Oxybutynin 5 MG Tablet PO ×3 (06:46→20:57)
[2021-01-10 06:50] LABS: Bedside Glucose 81 mg/dL (70-110)
[2021-01-10] MEDS: Levothyroxine 150 MCG Tablet 300 MCG PO (06:50)
--- NOTE | 2021-01-10 07:05 | EKG12_ITS ---
Test Reason : CP ADMIT Blood Pressure : / mmHG Vent. Rate : 078 BPM Atrial Rate : 078 BPM P-R Int : 166 ms QRS Dur : 096 ms QT Int : 408 ms P-R-T Axes : 003 009 006 degrees QTc Int : 465 ms Normal sinus rhythm Normal ECG Confirmed by OSITO PRESSLEY, RETA ([id number]), editorial project manager ANNELISE SCHMITZ ([id number]) on 01/11/2021 11:34:35 AM Referred By: NATHALIE Confirmed By:RETA MCNEILL MD
[2021-01-10] MEDS: Morphine 2 MG/ML Syringe IV ×2 (08:31→12:55)
[2021-01-10] MEDS: 0.9% Saline Lock 10 ML Syringe IV ×4 (08:32→20:58)
[2021-01-10] MEDS: Aspirin E.C. 81 MG Tablet PO (10:21)
--- NOTE | 2021-01-10 11:12 | PCM.PN.HOSP ---
Documented by User: Lissett Prather NP, INDUSTRIAL EQUIPMENT WIRER-C 01/10/21 11:20 Subjective Subjective Patient seen and examined. Admitted earlier this morning for chest pain. Patient reports continued mild chest pain which radiates to her back and complains of abnormal feeling in her jaw bilaterally. Describes intermittent shortness of breath associated with chest pain. Denies other symptoms or complaints. Objective Data Objective Data Vital Signs: Vital Signs Temp Pulse Resp BP Pulse Ox 98.3 F 83 16 147/89 H 96 01/10/21 06:30 01/10/21 07:27 01/10/21 06:30 01/10/21 08:30 01/10/21 07:05 Oxygen Delivery Method Room Air Weight: 419 lb 5.107 oz Body Mass Index (BMI) 60.1 Lab / Micro Data Result Diagrams: 01/10/21 04:56 01/10/21 04:56 Labs: Laboratory Results - last 24 hr 01/10/21 01/10/21 01/10/21 04:56 04:56 06:35 WBC 8.8 RBC 4.02 L Hgb 13.3 Hct 39.2 MCV 97.5 MCH 33.1 H MCHC 33.9 RDW Std Deviation 43.4 RDW Coeff of Yajaira 11.9 Plt Count 194 MPV 10.0 Immature Gran % (Auto) 0.200 Neut % (Auto) 56.1 Lymph % (Auto) 34.0 [place] % (Auto) 6.9 Eos % (Auto) 2.2 Baso % (Auto) 0.6 Absolute Neuts (auto) 4.9 Absolute Lymphs (auto) 2.99 Nucleated RBC % 0 Sodium 136 Potassium 4.3 Chloride 109 H Carbon Dioxide 20.0 L Anion Gap 7 BUN 17 Creatinine 0.91 Estim Creat Clear Calc 82.65 Est GFR (MDRD) Af Amer 85 Est GFR (MDRD) Non-Af 71 BUN/Creatinine Ratio 18.7 Glucose 68 L Calcium 8.6 Troponin I < 0.015 POC Glucose 81 01/10/21 08:06 WBC RBC Hgb Hct MCV MCH MCHC RDW Std Deviation RDW Coeff of Yajaira Plt Count MPV Immature Gran % (Auto) Neut % (Auto) Lymph % (Auto) [place] % (Auto) Eos % (Auto) Baso % (Auto) Absolute Neuts (auto) Absolute Lymphs (auto) Nucleated RBC % Sodium Potassium Chloride Carbon Dioxide Anion Gap BUN Creatinine Estim Creat Clear Calc Est GFR (MDRD) Af Amer Est GFR (MDRD) Non-Af BUN/Creatinine Ratio Glucose Calcium Troponin I < 0.015 POC Glucose Radiography Diagnostic Testing: Radiology Impression Chest X-Ray 01/10/21 04:10 IMPRESSION: Improved aeration of the lungs. Infiltrate seen on prior study are no longer visualized. Electronically Signed: Sharonda Nance MD at 5:29 EDT Tel , Service support , Physical Exam Const alert, oriented x3 and no apparent distress Orientation / Consciousness: awake, oriented to person, oriented to place and oriented to time HEENT normocephalic and moist oral mucous membranes Eyes PERRL, EOMs intact bilaterally and conjunctivae normal Neck no lymphadenopathy Resp normal respiratory effort and clear to auscultation bilaterally Cardio regular rate, regular rhythm and no murmurs Peripheral Pulses: pulses 2+ throughout GI normal to inspection, nondistended, normoactive bowel sounds, non-tender and non-distended Inspection: central obesity Extremity normal to inspection Skin no rashes or lesions noted Lesions: no lesions Rashes: no rashes Trauma: no lacerations or abrasions Neuro CN's II-XII intact bilaterally, no focal motor deficits, no sensory deficits noted and deep tendon reflexes 2+ bilaterally Psych mental status grossly normal and affect normal Assessment & Plan Assessment/Plan (1) Chest pain: PLAN: 1. Chest pain-reports history of stress-induced heart attack 1 year ago. Denies history of known CAD. Troponin negative. EKG without ST-T changes. Plan for nuclear stress test in a.m. Continue aspirin, statin. 2. Type 2 diabetes mellitus-continue glimepiride. Accu-Cheks with sliding scale insulin. Continue home insulin regimen. 3. Hypertension-stable, continue lisinopril, metoprolol. 4. Hyperlipidemia-continue statin 5. Hypothyroidism-continue Synthroid regimen. 6. Chronic migraines-on Topamax. 7. Depression/anxiety-on SNRI. 8. Morbid obesity-BMI 60.2. Dietitian consult. Encouraged diet and lifestyle modifications. 9. Fibromyalgia/chronic pain syndrome-as needed pain regimen. DVT prophylaxis-Lovenox subcu This patient was seen by DEEJAY Brody under the supervision of Dr. Guardado. Documented by User: Dr. Mickey Guardado, 01/10/21 14:10 Subjective Subjective still with chest pain radiating down left arm. Left arm also red. Objective Data Lab / Micro Data Result Diagrams: 01/10/21 04:56 01/10/21 04:56 Physical Exam Narrative posterior thoracic back pain out of proportion to exam Const alert Constitutional Narrative: anxious. Resp normal respiratory effort and clear to auscultation bilaterally Cardio regular rate, regular rhythm, S1 normal heart sound and S2 normal heart sound GI normal to inspection, nondistended, normoactive bowel sounds, non-tender and non-distended Skin Skin Narrative: light erythema of left forarm. Psych Mood & Affect: anxious Assessment & Plan Assessment/Plan (1) Chest pain: PLAN: 1. Chest pain: Atypical. Stress test ordered. Thus far cardiac work-up has been unremarkable. 2. Left arm erythema: No overt cellulitis. She patient denies any sunburned, denies keeping her left arm out while driving. No evidence of shingles infection. Visit Charges OBSV E&M: 64697 Subsequent observation care L2
[2021-01-10] MEDS: Metoprolol(XL)Succ 50 MG Tablet PO ×2 (11:54→20:56)
[2021-01-10] MEDS: Venlafaxine XR 150 MG Capsule PO ×2 (11:54→20:56)
[2021-01-10] MEDS: Topiramate 100 MG Tablet PO ×2 (11:54→20:57)
[2021-01-10] MEDS: Lisinopril 10 MG Tablet PO (11:54)
[2021-01-10 12:16] LABS: Bedside Glucose 79 mg/dL (70-110)
[2021-01-10] MEDS: Enoxaparin 40 MG/0.4 ML Syringe SC (12:22)
[2021-01-10] MEDS: tiZANidine HCl 2 MG Tablet 4 MG PO ×2 (13:59→20:56)
--- NOTE | 2021-01-10 15:54 | EKG12_ITS ---
Test Reason : CP Blood Pressure : / mmHG Vent. Rate : 075 BPM Atrial Rate : 075 BPM P-R Int : 150 ms QRS Dur : 100 ms QT Int : 410 ms P-R-T Axes : -06 019 009 degrees QTc Int : 457 ms Normal sinus rhythm Normal ECG When compared with ECG of 10-JAN-2021 07:13, MANUAL COMPARISON REQUIRED, DATA IS UNCONFIRMED Confirmed by KHADIJAH PRESSLEY, ISMA ([id number]), material expeditor ANNELISE SCHMITZ ([id number]) on 01/12/2021 10:25:36 AM Referred By: NATHALIE Confirmed By:ISMA LUCIO MD
[2021-01-10 17:26] LABS: Bedside Glucose 169 mg/dL (70-110)
[2021-01-10] MEDS: oxyCODONE 5 MG Tablet PO (17:26)
[2021-01-10] MEDS: Insulin Lispro 100 UNIT/ML INSULN.PEN SC ×2 (17:27→20:57)
[2021-01-10] MEDS: Ketorolac 30 MG/ML Syringe IV (20:55)
[2021-01-10] MEDS: Atorvastatin Calcium 40 MG Tablet PO (20:56)
[2021-01-10] MEDS: Zolpidem Tartrate 5 MG Tablet PO (21:03)
[2021-01-10 22:05] LABS: Bedside Glucose 171 mg/dL (70-110)
[2021-01-11] VITALS (7 sets, daily range): BP systolic 97–119; BP diastolic 55–71; PULSE 68–92; RESP 16–18; TEMP 36.5–36.9; O2SAT 96–98
[2021-01-11] MEDS: Ondansetron 4 MG/2 ML Vial IV (00:26)
[2021-01-11] MEDS: oxyCODONE 5 MG Tablet PO ×2 (00:26→06:45)
[2021-01-11] MEDS: Acetaminophen 325 MG Tablet 650 MG PO ×3 (00:26→12:47)
[2021-01-11] MEDS: 0.9% Saline Lock 10 ML Syringe IV ×2 (00:26→06:45)
[2021-01-11] MEDS: Oxybutynin 5 MG Tablet PO ×2 (06:40→14:25)
[2021-01-11] MEDS: Levothyroxine 150 MCG Tablet 300 MCG PO (06:40)
[2021-01-11] MEDS: Aspirin E.C. 81 MG Tablet PO (06:41)
[2021-01-11] MEDS: tiZANidine HCl 2 MG Tablet 4 MG PO ×2 (06:41→14:26)
[2021-01-11] MEDS: Lisinopril 10 MG Tablet PO (06:41)
[2021-01-11] MEDS: Levothyroxine 25 MCG TABLET PO (06:41)
--- NOTE | 2021-01-11 06:49 | EKG12_ITS ---
Test Reason : PRE STRESS TEST Blood Pressure : / mmHG Vent. Rate : 071 BPM Atrial Rate : 071 BPM P-R Int : 146 ms QRS Dur : 100 ms QT Int : 428 ms P-R-T Axes : -05 036 024 degrees QTc Int : 465 ms Normal sinus rhythm Normal ECG Confirmed by OSITO PRESSLEY, RETA ([id number]), offline editor ANNELISE SCHMITZ ([id number]) on 01/12/2021 10:33:00 AM Referred By: NATHALIE Confirmed By:RETA MCNEILL MD
[2021-01-11 06:51] LABS: Bedside Glucose 116 mg/dL (70-110)
[2021-01-11] MEDS: Topiramate 100 MG Tablet PO (12:27)
[2021-01-11] MEDS: Glimepiride 4 MG Tablet 8 MG PO (12:27)
[2021-01-11] MEDS: Venlafaxine XR 150 MG Capsule PO (12:28)
[2021-01-11] MEDS: Metoprolol(XL)Succ 50 MG Tablet PO (12:28)
[2021-01-11] MEDS: Insulin Lispro 100 UNIT/ML INSULN.PEN SC (12:34)
[2021-01-11 12:55] LABS: Bedside Glucose 223 mg/dL (70-110)
--- NOTE | 2021-01-11 13:30 | DCINST_ITS ---
Discharge Instructions Diet Discharge Diet: 1999 Calorie Control Diet Activity Discharge Activity: Return to Normal Activity Follow Up Care Test Results: Test results from this visit will be discussed in further detail at your follow-up appointment, if applicable. Discharge Plan Admission Admit Date/Time: 01/10/21 05:47 Attending Provider: Mickey Guardado Primary Care Provider: Lissett Begum NP Instructions Patient Instructions: ED Chest Pain, Noncardiac Discharge Orders/Prescriptions Prescriptions: Continued oxybutynin chloride 5 mg tablet 5 mg PO TID RF: 0 venlafaxine 150 mg capsule,extended release 24hr 150 mg PO BID RF: 0 tizanidine 4 MG tablet 4 mg PO TID RF: 0 Centrum Silver Women 1 EACH tablet 1 tab PO DAILY RF: 0 topiramate 100 MG tablet 100 mg PO BID RF: 0 glimepiride 2 MG tablet 8 mg PO QAM RF: 0 Trulicity 1.5 MG/0.5 ML pen injector 3 mg SQ GOMEZ RF: 0 aspirin 81 MG tablet,delayed release (DR/EC) 81 mg PO DAILY RF: 0 atorvastatin 40 MG tablet 40 mg PO DAILY RF: 0 levothyroxine 300 MCG tablet 300 mcg PO DAILY RF: 0 levothyroxine 25 MCG tablet 25 mcg PO DAILY RF: 0 lisinopril 5 MG tablet 10 mg PO DAILY RF: 0 zolpidem 10 MG tablet 10 mg PO QHS RF: 0 metoprolol succinate 50 MG tablet extended release 24 hr 50 mg PO BID RF: 0 hydrocodone-acetaminophen 5-325 mg tablet 1 tab PO Q12H PRN MDD 6 PRN (Reason: pain) RF: 0 insulin glargine 100 unit/mL (3 mL) Insulin Pen 50 unit SUBCUT BID RF: 0 insulin lispro 25 u TIDCM RF: 0 Referrals / Follow Up: Lissett Begum NP, MERCHANDISING INTERN-C [Primary Care Provider] - Disposition Disposition (needs filled in before D/C Order can be placed): Home, self care
--- NOTE | 2021-01-11 13:33 | PCM.DC.SUM ---
Providers Date of Admission: 01/10/21 Primary Care Physician: JOSÉ FayC Reason For Visit: CHEST PAIN Diagnosis Discharge Diagnosis (1) Chest pain: Status: Acute Code(s): R07.9 - Chest pain, unspecified Medications at Discharge Home Medications oxybutynin chloride 5 mg tablet 5 mg PO TID 10/15/17 tizanidine 4 mg PO TID 01/18/18 venlafaxine 150 mg capsule,extended release 24 hr 150 mg PO BID cap 04/06/18 Centrum Silver Women 1 tab PO DAILY 04/27/18 topiramate 100 mg PO BID tablet 05/01/18 glimepiride 8 mg PO QAM 11/06/18 Trulicity 3 mg SQ GOMEZ 01/22/19 aspirin 81 mg PO DAILY 06/01/20 atorvastatin 40 mg PO DAILY 06/01/20 levothyroxine 25 mcg PO DAILY 06/01/20 levothyroxine 300 mcg PO DAILY 06/01/20 lisinopril 10 mg PO DAILY 06/01/20 metoprolol succinate 50 mg PO BID 06/01/20 zolpidem 10 mg PO QHS 06/01/20 hydrocodone-acetaminophen 1 tab PO Q12H PRN PRN MDD 6 01/10/21 insulin glargine 50 unit SUBCUT BID 01/10/21 insulin lispro 25 u TIDCM 01/10/21 Hospital Course Operations None Procedures Stress test Summary of Care Provided Minutes Spent on Discharge: 28 Hospital Course: 45-year-old white female presents with chest pain. Chest pain was quite exaggerated pain out of proportion to exam. Appear to be reproducible. Patient did undergo a nuclear stress test today that was negative. No cardiac etiology identified for her chest pain and is likely musculoskeletal. However there is concern that there may be some embellishment of her symptoms as patient was on morphine and was asking for a faster push by nursing. So the morphine was discontinued she. Patient's son apparently was in the room and stated to the staff that he had the same problem and went to the emergency room in. Circumstances of his visit in the ED are unknown to me. For the patient that she would not be receiving any narcotics as she has recently had a prescription filled by Dr. Richard on December 25. This was upon a review of the patient's [facility] report. I would be very wary of prescribing this particular patient narcotics without definitive etiology as I am concerned that there may be ulterior motive in regards to her complaints. Physical Exam Narrative appears older than stated age. Const alert and oriented x3 Resp normal respiratory effort and clear to auscultation bilaterally Cardio regular rate, regular rhythm, S1 normal heart sound and S2 normal heart sound ABG / Lab / Microbiology Data Result Diagrams: 01/10/21 04:56 01/10/21 04:56 Laboratory: Laboratory Results - last 24 hr 01/10/21 01/10/21 01/11/21 17:17 20:53 06:40 POC Glucose 169 H 171 H 116 H 01/11/21 12:24 POC Glucose 223 H D/C Instructions Discharge Diet: 2000 Calorie Control Diet Discharge Activity: Return to Normal Activity Meaningful Use Info Meaningful Use Diagnoses (Choose all that apply): None applicable Discharge Plan Admission Admit Date/Time: 01/10/21 05:47 Attending Provider: Mickey Guardado Primary Care Provider: Lissett Begum PHOTOGRAPHIC REPRODUCTION TECHNICIAN Instructions Patient Instructions: ED Chest Pain, Noncardiac Discharge Orders/Prescriptions Prescriptions: Continued oxybutynin chloride 5 mg tablet 5 mg PO TID RF: 0 venlafaxine 150 mg capsule,extended release 24hr 150 mg PO BID RF: 0 tizanidine 4 MG tablet 4 mg PO TID RF: 0 Centrum Silver Women 1 EACH tablet 1 tab PO DAILY RF: 0 topiramate 100 MG tablet 100 mg PO BID RF: 0 glimepiride 2 MG tablet 8 mg PO QAM RF: 0 Trulicity 1.5 MG/0.5 ML pen injector 3 mg SQ GOMEZ RF: 0 aspirin 81 MG tablet,delayed release (DR/EC) 81 mg PO DAILY RF: 0 atorvastatin 40 MG tablet 40 mg PO DAILY RF: 0 levothyroxine 300 MCG tablet 300 mcg PO DAILY RF: 0 levothyroxine 25 MCG tablet 25 mcg PO DAILY RF: 0 lisinopril 5 MG tablet 10 mg PO DAILY RF: 0 zolpidem 10 MG tablet 10 mg PO QHS RF: 0 metoprolol succinate 50 MG tablet extended release 24 hr 50 mg PO BID RF: 0 hydrocodone-acetaminophen 5-325 mg tablet 1 tab PO Q12H PRN MDD 6 PRN (Reason: pain) RF: 0 insulin glargine 100 unit/mL (3 mL) Insulin Pen 50 unit SUBCUT BID RF: 0 insulin lispro 25 u TIDCM RF: 0 Referrals / Follow Up: Lissett Begum NP, PHOTOGRAPHIC REPRODUCTION TECHNICIAN-C [Primary Care Provider] - Disposition Disposition (needs filled in before D/C Order can be placed): Home, self care Visit Charges OBSV E&M: 26123 Observation care discharge
--- NOTE | 2021-01-11 14:25 | STRESSREP ---
Stress Test Report Regarding the same myocardial perfusion stress test. Indication; 45-year-old female presented with symptoms of chest pain early in the morning, has history of anxiety and depression, type 2 diabetes mellitus, gastric reflux disease and hypertension. Also patient mention history of prior [place] with no history of cardiac intervention. The cardiac evaluation with EKG showed underlying normal sinus, series of troponin were negative. Stress protocol: Resting EKG demonstrates. Normal sinus rhythm. 0.4 mg of regadenoson was infused per usual protocol followed by rapid intravenous saline flush injection continuous EKG monitoring was performed. The maximum heart rate attained was 106 bpm which was 61% % of maximum predicted heart . Stress EKG showed[, no significant change from the resting EKG, with maximum heart rate of 106 bpm. Arrhythmia: No arrhythmia demonstrated Symptoms: Patient had no symptoms of chest pain Blood pressure at rest: 122/78 mmHg blood pressure at the end of stress: 122/78 mmHg Myocardial perfusion protocol. 14.7 mCi ]of Technetium 99m Sestamibi was injected at rest. [ 0.4 mg ]of Regadenoson was infused per usual protocol peak infusion 44.8 mCi ]of Technetium 99m sestamibi was injected. Stress images were obtained stress and rest images were reconstructed and compared in the short axis vertical and horizontal long axis. Gated images were also obtained Perfusion SPECT analysis: Review of the images demonstrate normal uptake of sestamibi at rest, post stress images demonstrate similar uptake of sestamibi to the resting images, homogeneous tracer uptake With no evidence of reversible myocardial ischemia. Reduced tracer uptake in the inferior myocardium consistent with attenuation artifact Gated SPECT analysis: The gated ejection fraction is 60%, normal LV wall motion, with normal LV systolic function. Conclusion: Negative Lexiscan sestamibi myocardial perfusion study for reversible myocardial ischemia Normal LV systolic function Apollo Steen MD,FACC,[facility] [place]
--- NOTE | 2021-01-11 14:32 | EKG12_ITS ---
Test Reason : CP Blood Pressure : / mmHG Vent. Rate : 078 BPM Atrial Rate : 078 BPM P-R Int : 154 ms QRS Dur : 084 ms QT Int : 396 ms P-R-T Axes : 000 024 005 degrees QTc Int : 451 ms Normal sinus rhythm Low voltage QRS Borderline ECG Confirmed by OSITO PRESSLEY, RETA ([id number]), advertising editor ANNELISE SCHMITZ ([id number]) on 01/16/2021 2:16:49 PM Referred By: SUNI Confirmed By:RETA MCNEILL MD
== END 2021-01-11 13:32 | disposition home or self-care (01) ==
LOC: ED 05:49 → PCU 05:50
PROVIDERS: Admitting Provider Hospitalist; Emergency Provider Emergency Medicine; PCP Nurse Practitioner Primary Care
DX: R07.89 Other chest pain (principal); I10 Essential (primary) hypertension; I25.2 Old myocardial infarction; M79.7 Fibromyalgia; K21.9 Gastro-esophageal reflux disease without esophagitis; K76.0 Fatty (change of) liver, not elsewhere classified; F41.9 Anxiety disorder, unspecified; F32.9 Major depressive disorder, single episode, unspecified; E66.01 Morbid (severe) obesity due to excess calories; E11.65 Type 2 diabetes mellitus with hyperglycemia; E03.9 Hypothyroidism, unspecified; G43.909 Migraine, unspecified, not intractable, without status migrainosus; G89.4 Chronic pain syndrome; E78.5 Hyperlipidemia, unspecified; Z79.899 Other long term (current) drug therapy; Z79.82 Long term (current) use of aspirin; Z79.4 Long term (current) use of insulin; Z68.44 Body mass index [BMI] 60.0-69.9, adult
CPT/HCPCS: 36415; 71045; 78452; 80048; 82962; 84484; 85025; 93005; 93017; 96372; 96374; 96375; 96376; 99218; 99285; A9500; A4216; G0378; J2405; J2785

== ENCOUNTER → 2021-02-02 17:30 | Outpatient (CLI) | payer MEDICAID, SELFPAY ==
[2021-01-10 06:21] VITALS: BMI 60.1
--- NOTE | 2021-02-02 17:34 | CT_ITS ---
STUDY: CT MAXILLOFACIAL SINUSES REASON FOR EXAM: Female, 45 years old. SINUSITIS RADIATION DOSAGE (If Supplied By Facility): CTDIvol = ( 33.06 ) mGy, DLP = ( 862.77 ) mGycm TECHNIQUE: The patient was scanned in a multi detector CT scanner. High resolution axial imaging was performed without the administration of intravenous contrast material. Sagittal and coronal images were reconstructed. Individualized dose optimization techniques were used for this CT. COMPARISON: 12/20/2015 FINDINGS: FRONTAL SINUSES: Normal aeration, without mucosal inflammatory disease. ETHMOIDAL SINUSES: Normal aeration, without mucosal inflammatory disease. MAXILLARY SINUSES: Normal aeration, without mucosal inflammatory disease. SPHENOIDAL SINUSES: Mucosal thickening of the left sphenoid sinus and opacification right sphenoid sinus consistent with sinusitis. Prior sinus surgery with resection of the medial wall the maxillary sinuses, middle turbinates, and inferior aspect of the ethmoid air cells with large windows into the maxillary sinuses. Normal bilateral middle turbinates. Normal bilateral inferior turbinates. Normal midline nasal septum. There is patency of the bilateral nasal airways. The visualized osseous structures are normal. The visualized bilateral orbital contents are normal. CT/Sinus/Facial Bone IMPRESSION: Prior sinus surgery with sphenoid sinusitis. Electronically Signed: Devonte Luna MD at 6:56 EDT Tel , Service support ,
== END ==
PROVIDERS: PCP Nurse Practitioner Primary Care; Referring Provider Otolaryngology; Visit Provider Otolaryngology
DX: J32.9 Chronic sinusitis, unspecified (principal)
CPT/HCPCS: 70486

== ENCOUNTER 2021-02-17 03:31 | Emergency (ER) | payer MEDICAID, SELFPAY ==
[2021-01-10 06:21] VITALS: BMI 60.1
[2021-02-17 03:32] VITALS: BP 158/96; PULSE 110; RESP 16; TEMP 36.6; O2SAT 94; BMI 60.7
[2021-02-17] MEDS: 0.9% Normal Saline 1,000 ML 150 ML IV (03:45)
--- NOTE | 2021-02-17 03:45 | CT_ITS ---
STUDY: CT ABDOMEN AND PELVIS WITHOUT CONTRAST REASON FOR EXAM: Female, 45 years old patient with signs and symptoms of kidney stones. RADIATION DOSAGE (If Supplied By Facility): CTDIvol = ( 34.45 ) mGy, DLP = ( 1962.65 ) mGycm TECHNIQUE: Transaxial images were obtained from the dome of the diaphragm to the symphysis pubis without oral contrast, and without intravenous contrast. Sagittal and coronal images were reconstructed. Individualized dose optimization techniques were used for this CT. COMPARISON: CT of the abdomen and pelvis dated 12/03/2020. FINDINGS: The visualized lung bases are unremarkable. The visualized portions of the heart are within normal limits. Normal liver. There are surgical clips in the gallbladder fossa consistent with a prior cholecystectomy. Normal spleen. Normal pancreas. Normal bilateral adrenal glands. Normal right kidney. Normal left kidney. Normal visualized stomach. There is no obvious dilated bowel, ascites or pneumoperitoneum. The small bowel has a grossly normal appearance. Stool is visible within the ascending colon and transverse colon. Descending colon is relatively nondistended with fluid-filled bowel. There is non-visualization of the appendix. Normal abdominal aorta. Normal inferior vena cava. Normal retroperitoneum. Normal urinary bladder. There is absence of the uterus consistent with a prior hysterectomy. There is a moderately large ventral hernia containing fat and small bowel. The hernia measures approximately 8.9 x 3.9 cm. The bones appear osteopenic. CT/Abdomen/Pelvis without Cont IMPRESSION: 1. No CT evidence of acute intra-abdominal disease. 2. No CT evidence of kidney stones. 3. Incarcerated ventral hernia containing small bowel. Electronically Signed: Eloisa House MD at 6:16 EDT , Service support ,
--- NOTE | 2021-02-17 03:45 | RAD_ITS ---
STUDY: X-RAY CHEST REASON FOR EXAM: Female, 45 years old patient with chest pain. TECHNIQUE: Single AP portable view of the chest. COMPARISON: 01/10/2021. FINDINGS: The lungs are expanded. There is residual interstitial thickening visible in both lungs greatest at the right lung base. This may be secondary to pulmonary fibrosis or bronchiectasis. There is no demonstrated pleural abnormality. Normal size heart. Normal mediastinum and galina. Normal visualized pulmonary arteries. Normal visualized aortic arch and descending thoracic aorta. Normal visualized thoracic spine. Normal visualized ribs, clavicles, and shoulders. There is no demonstrated abnormality of the visualized soft tissue structures of the upper abdomen. RAD/Chest 1 View (Portable) IMPRESSION: No radiographic evidence of acute cardiopulmonary disease. Electronically Signed: Eloisa House MD at 6:09 EDT , Service support ,
--- NOTE | 2021-02-17 03:45 | EKG12_ITS ---
Test Reason : CP Blood Pressure : / mmHG Vent. Rate : 108 BPM Atrial Rate : 108 BPM P-R Int : 164 ms QRS Dur : 094 ms QT Int : 346 ms P-R-T Axes : 031 024 015 degrees QTc Int : 463 ms Sinus tachycardia Low Voltage QRS Inferior infarct , age undetermined , cannot be excluded Abnormal ECG Confirmed by OSITO PRESSLEY, RETA ([id number]), order editor DONNA WILLIS ([id number]) on 02/21/2021 1:41:10 PM Referred By: RAMOS Confirmed By:RETA MCNEILL MD
[2021-02-17 04:01] LABS: Absolute Lymphocyte Count 3.77 X10^3/uL (0.83-4.51); Absolute Neutrophil Count 5.3 X10^3/uL (2.0-7.7); Basophil# 0.05 X10^3/uL; Basophil% 0.5 % (0-1); Eosinophil# 0.19 X10^3/uL; Eosinophils% 1.9 % (0-5); Hemoglobin 14.3 g/dL (12.0-15.0); Lymphocyte # 3.77 X10^3/ul (0.83-4.51); Mean Corp Hgb Conc 33.3 g/dL (32-36); Mean Corpuscular Hgb 32.7 pg (27.0-32.0); Mean Corpuscular Volume 98.4 fL (81-99); Monocyte# 0.58 X10^3/uL; Monocyte% 5.9 % (0-10); NRBC Flagged by Analyzer 0 % (0-5); Neutrophil # 5.28 X10^3/uL (2.7-7.7); Neutrophil % 53.3 % (47-70); Platelet Count 349 K/mm3 (150-450); RBC Distribution Width CV 12.3 % (11.6-14.6); RBC Distribution Width SD 44.1 fl (35.1-43.9); Red Blood Count 4.37 M/mm3 (4.2-5.4); White Blood Count 9.9 K/mm3 (4.4-11.0)
[2021-02-17] MEDS: HYDROmorphone 1 MG/ML Syringe 0.5 MG IV (04:14)
[2021-02-17] MEDS: Ondansetron 4 MG/2 ML Vial IV (04:14)
[2021-02-17 05:01] LABS: Anion Gap 8 (5-15); BUN 14 mg/dL (7-18); Calcium,Total 8.8 mg/dL (8.5-10.1); Chloride 106 mmol/L (98-107); Creatinine, Serum 1.27 mg/dL (0.55-1.02); EST Glomerular Filtration Rate 48 mL/min (>60); Est Glom Filt Rate - Afr Amer 58 mL/min (>60); Estimated Creatinine Clearance 59.22 ml/min; Glucose 387 mg/dL (74-106); Potassium 4.3 mmol/L (3.5-5.1); Sodium Level 139 mmol/L (136-145); Troponin-I HS 6.5 pg/mL (3.0-53.7)
[2021-02-17 05:34] LABS: Mucous, Urine 0 SEEN /hpf (<or=2+)
[2021-02-17 05:35] LABS: Color, Urine Yellow (Yellow); Glucose, Dipstick 1000 mg/dl (Normal); Ketone-Dipstick Negative (Negative); Leukocyte Esterase-Dipstick 500 /ul (Negative); Nitrite-Dipstick Negative (Negative); Occult Blood-Urine 150 /ul (Negative); Protein-Dipstick 30 mg/dl (Negative); Urine Bilirubin Dipstick Negative (Negative); Urine Clarity Clear (Clear); Urine Urobilinogen Normal (Normal)
[2021-02-17 05:41] LABS: Bacteria 2+ /hpf (None Seen); Red Blood Cells-Urine 5-10 SEEN /hpf (0-5)
[2021-02-17] MEDS: proMETHazine 25 MG/ML Syringe IM (05:41)
[2021-02-17 05:42] VITALS: PULSE 103; RESP 16; O2SAT 97
[2021-02-17 05:42] LABS: Squamous Epithelial Cells - UA 0-5 SEEN /hpf (5-10)
[2021-02-17 05:44] LABS: Other Crystals-Urine 0-5 /hpf (None Seen); Transitional Epithelial - Ur 0-5 SEEN /hpf (0-5); White Blood Cells 5-10 SEEN /hpf (0-5)
--- NOTE | 2021-02-17 06:40 | EX.ED.DYSGE1 ---
HPI History of Present Illness Chief Complaint: Chest Pain Detail of Chief Complaint: Chest pain, dysuria, bleeding per rectum Informant: patient Onset/Context/Timing Onset: Days Current Severity: Moderate Maximum Severity: Moderate Narrative Narrative: Patient presents for multiple different concerns. She presents with chest pain that started yesterday evening. She describes it as a heavy tight sensation in the substernal region. She states she will have an occasional shocklike sensation through her left arm. She does feel short of breath and states her anxiety is increased. She reports having a cardiac cath last March at [facility]. She states there was some disease but nothing that needed to be intervened upon. Patient does report having a headache. She complains of dysuria as well as hesitancy with urination. She denies hematuria but states she has had similar symptoms with prior kidney stones. Patient had recently taken some Imodium for diarrhea and now feels that she may be constipated. With increased straining she had noted some blood when she tries to pass stool. She denies fever but has had chills. [facility] Medical History Anxiety and depression Carpal tunnel syndrome Diabetes type 2, uncontrolled Fatty liver Fibromyalgia GERD (gastroesophageal reflux disease) HTN (hypertension) Lupus Seasonal allergies Thyroid disease Home Medications oxybutynin chloride 5 mg tablet 5 mg PO TID 10/15/17 [History Last Taken 01/09/21] tizanidine 4 mg PO TID 01/18/18 [History Last Taken 01/09/21] venlafaxine 150 mg capsule,extended release 24 hr 150 mg PO BID cap 04/06/18 [History Last Taken 01/09/21] Centrum Silver Women 1 tab PO DAILY 04/27/18 [History Last Taken 01/09/21] topiramate 100 mg PO BID tablet 05/01/18 [Rx Last Taken 01/09/21] glimepiride 8 mg PO QAM 11/06/18 [History Last Taken 01/09/21] Trulicity 3 mg SQ GOMEZ 01/22/19 [History Last Taken 01/07/21] aspirin 81 mg PO DAILY 06/01/20 [History Last Taken 01/09/21] atorvastatin 40 mg PO DAILY 06/01/20 [History Last Taken 01/09/21] levothyroxine 25 mcg PO DAILY 06/01/20 [History Last Taken 01/09/21] levothyroxine 300 mcg PO DAILY 06/01/20 [History Last Taken 01/09/21] lisinopril 10 mg PO DAILY 06/01/20 [History Last Taken 01/09/21] metoprolol succinate 50 mg PO BID 06/01/20 [History Last Taken 01/09/21] zolpidem 10 mg PO QHS 06/01/20 [History Last Taken 01/09/21] hydrocodone-acetaminophen 1 tab PO Q12H PRN PRN MDD 6 01/10/21 [History Last Taken 01/09/21] insulin glargine 50 unit SUBCUT BID 01/10/21 [History Last Taken Unknown] insulin lispro 25 u TIDCM 01/10/21 [History Last Taken Unknown] ondansetron 8 mg PO Q8H PRN #15 tab 01/11/21 [Rx Last Taken Unknown] nitrofurantoin monohyd/m-cryst [Macrobid] 100 mg PO Q12H 7 Days #14 cap 02/17/21 [Rx Last Taken Unknown] oxycodone-acetaminophen [Percocet] 1 tab PO Q6H PRN 3 Days #10 tab 02/17/21 [Rx Last Taken Unknown] Allergy/AdvReac Type Severity Reaction Status Date / Time hydroxyzine [From Atarax] Allergy Hives Verified 02/17/21 03:38 Sulfa (Sulfonamide Allergy Hives Verified 02/17/21 03:38 Antibiotics) duloxetine [From Cymbalta] AdvReac Other Verified 02/17/21 03:38 raspberry AdvReac Other Verified 02/17/21 03:38 Family History Mother Arthritis Breast cancer Heart disease Father Heart disease Alcohol abuse Blood clot in vein Sister Anxiety Depression Brother Anxiety Surgical History cervical lymph node excision H/O hernia repair H/O sinus surgery H/O thyroidectomy H/O: History of incision and drainage Hx of appendectomy Hx of cholecystectomy l toe surgery S/P bronchoscopy S/P RUTH (total abdominal hysterectomy) Social History Smoking Status: Never smoker alcohol intake: current alcohol intake frequency: holidays/special occasions only substance use type: does not use ROS ROS ED Constitutional Constitutional ED: Reports chills; Denies fever(s) Eyes Eyes: Denies change in vision ENT ENT ED: Denies sore throat Cardiovascular Cardiovascular: Reports chest pain; Denies palpitations or racing heartbeat Respiratory/Chest Respiratory/Chest: Reports dyspnea; Denies cough Gastrointestinal Gastrointestinal: Reports abdominal pain and constipation; Denies diarrhea, nausea or vomiting Genitourinary Genitourinary ED: Reports dysuria; Denies hematuria Musculoskeletal Musculoskeletal: Denies back pain Integumentary Denies rash Neurologic Neurologic: Reports headache(s); Denies weakness Psychiatric Psychiatric: Reports anxiety; Denies depression Endocrine Endocrinology: Denies polydipsia or polyuria Allergic/Immunologic Allergic/Immunologic ED: Denies urticaria EXAM Physical Exam Const Vital Signs: 02/17/21 03:32 02/17/21 03:35 02/17/21 05:42 Temperature 97.9 F Temperature Source Oral Pulse Rate 110 H 103 H Respiratory Rate 16 16 Respiratory Effort Normal Blood Pressure 158/96 H Blood Pressure Mean 116 Pulse Ox 94 97 Oxygen Delivery Method Room Air Room Air 02/17/21 07:03 Temperature Temperature Source Pulse Rate 87 Respiratory Rate 16 Respiratory Effort Blood Pressure Blood Pressure Mean Pulse Ox 98 Oxygen Delivery Method Room Air Positive well nourished and well developed General Appearance ED: well developed HEENT Reports normocephalic and head/scalp atraumatic Eyes PERRL and EOMs intact bilaterally Neck supple Chest Wall inspection of chest normal and palpation of chest normal Resp normal respiratory effort and clear to auscultation bilaterally Cardio regular rate and regular rhythm GI normal to inspection, nondistended, normoactive bowel sounds Palpation: soft and tender suprapubic Extremity normal to inspection Neuro oriented x3 Neuro Narrative: No focal neurologic deficits. Sensorium / Orientation: alert Psych mental status grossly normal Skin no rashes or lesions noted MDM MDM MDM Narrative Medical decision making narrative: Patient was given analgesics and antiemetics. Lab work, urinalysis, chest x-ray, EKG, CT flank are obtained. Lab Data Attestation: I reviewed the patient's lab results. Labs: Laboratory Results - last 24 hr 02/17/21 02/17/21 02/17/21 03:55 03:55 05:30 WBC 9.9 RBC 4.37 Hgb 14.3 Hct 43.0 MCV 98.4 MCH 32.7 H MCHC 33.3 RDW Std Deviation 44.1 H RDW Coeff of Yajaira 12.3 Plt Count 349 MPV 10.0 Immature Gran % (Auto) 0.400 Neut % (Auto) 53.3 Lymph % (Auto) 38.0 Edwards % (Auto) 5.9 Eos % (Auto) 1.9 Baso % (Auto) 0.5 Absolute Neuts (auto) 5.3 Absolute Lymphs (auto) 3.77 Nucleated RBC % 0 Sodium 139 Potassium 4.3 Chloride 106 Carbon Dioxide 25.0 Anion Gap 8 BUN 14 Creatinine 1.27 H Estim Creat Clear Calc 59.22 Est GFR (MDRD) Af Amer 58 L Est GFR (MDRD) Non-Af 48 L BUN/Creatinine Ratio 11.0 Glucose 387 H Calcium 8.8 Troponin I High Sens 6.5 Urine Color Yellow Urine Clarity Clear Urine pH 5.0 Ur Specific [place] 1.020 Urine Protein 30 H Urine Glucose (UA) 1000 H Urine Ketones Negative Urine Occult Blood 150 H Urine Nitrite Negative Urine Bilirubin Negative Urine Urobilinogen Normal Ur Leukocyte Esterase 500 H Urine RBC 5-10 SEEN Urine WBC 5-10 SEEN Ur Squamous Epith Cells 0-5 SEEN Ur Transition Epith Cell 0-5 SEEN Other Crystals 0-5 Urine Bacteria 2+ Urine Mucus 0 SEEN Radiography Chest X-Ray - ED: 1 View, Read by ED Physician and Chronic Changes Diagnostic Testing: Radiology Impression Abdomen/Pelvis CT 02/17/21 03:[address]: [address] evidence of acute intra-abdominal disease. 2. No CT evidence of kidney stones. 3. Incarcerated ventral hernia containing small bowel. Electronically Signed: Eloisa House MD at 6:16 EDT , Service support , Chest X-Ray 02/17/21 03:45 IMPRESSION: No radiographic evidence of acute cardiopulmonary disease. Electronically Signed: Eloisa House MD at 6:09 EDT , Service support , EKG Initial EKG: Attestation: I personally reviewed and interpreted this EKG as follows: Interpretation: Sinus Tachycardia (Sinus tach at 108. Inferior Q waves noted. Unchanged compared to prior study of December 2020.) Treatment and Re-Evaluation Comments:: Test results are reviewed with the patient. CT flank reveals no evidence of kidney stone. She has unremarkable blood work including troponin. Urinalysis does show sign of infection with 2+ bacteria and 5-10 white cells. This will be sent for a culture and she will be treated with a course of Macrobid. Discharge Plan Triage Chief Complaint: Chest Pain ED Provider: Jailene Littlejohn Dx/Rx/DC Orders Clinical Impression: UTI (urinary tract infection), Chest pain Instructions: ED Chest Pain, Noncardiac, ED CYSTITIS Female Adult Prescriptions: New oxycodone-acetaminophen [Percocet] 5-325 mg tablet 1 tab PO Q6H PRN (Reason: pain) 3 Days Qty: 10 RF: 0 nitrofurantoin monohyd/m-cryst [Macrobid] 100 mg capsule 100 mg PO Q12H 7 Days Qty: 14 RF: 0 No Action oxybutynin chloride 5 mg tablet 5 mg PO TID RF: 0 venlafaxine 150 mg capsule,extended release 24hr 150 mg PO BID RF: 0 tizanidine 4 MG tablet 4 mg PO TID RF: 0 Centrum Silver Women 1 EACH tablet 1 tab PO DAILY RF: 0 topiramate 100 MG tablet 100 mg PO BID RF: 0 glimepiride 2 MG tablet 8 mg PO QAM RF: 0 Trulicity 1.5 MG/0.5 ML pen injector 3 mg SQ GOMEZ RF: 0 aspirin 81 MG tablet,delayed release (DR/EC) 81 mg PO DAILY RF: 0 atorvastatin 40 MG tablet 40 mg PO DAILY RF: 0 levothyroxine 300 MCG tablet 300 mcg PO DAILY RF: 0 levothyroxine 25 MCG tablet 25 mcg PO DAILY RF: 0 lisinopril 5 MG tablet 10 mg PO DAILY RF: 0 zolpidem 10 MG tablet 10 mg PO QHS RF: 0 metoprolol succinate 50 MG tablet extended release 24 hr 50 mg PO BID RF: 0 hydrocodone-acetaminophen 5-325 mg tablet 1 tab PO Q12H PRN MDD 6 PRN (Reason: pain) RF: 0 insulin glargine 100 unit/mL (3 mL) Insulin Pen 50 unit SUBCUT BID RF: 0 insulin lispro 25 u TIDCM RF: 0 ondansetron 8 mg tablet,disintegrating 8 mg PO Q8H PRN (Reason: nausea and vomiting) Qty: 15 RF: 0 Primary Care Provider: Lissett Begum NP Referrals: Lissett Begum NP, [employer] [facility] [Primary Care Provider] - 1 Week Disposition Disposition: Home, Self Care Discharge Date/Time: 02/17/21 07:04
[2021-02-17] MEDS: proMETHazine 25 MG/ML Syringe 12.5 MG IM (06:53)
[2021-02-17] MEDS: HYDROmorphone 0.5 MG/0.5 ML SYRINGE IV (06:54)
[2021-02-17] MEDS: Nitrofurantoin Macrocrystals 100 MG Capsule PO (06:54)
[2021-02-17 07:03] VITALS: PULSE 87; RESP 16; O2SAT 98
== END 2021-02-17 07:04 | disposition home or self-care (01) ==
PROVIDERS: Emergency Provider Emergency Medicine; PCP Nurse Practitioner Primary Care
DX: N39.0 Urinary tract infection, site not specified (principal); R07.9 Chest pain, unspecified; I10 Essential (primary) hypertension; F32.9 Major depressive disorder, single episode, unspecified; F41.9 Anxiety disorder, unspecified; G56.00 Carpal tunnel syndrome, unspecified upper limb; K76.0 Fatty (change of) liver, not elsewhere classified; M79.7 Fibromyalgia; E07.9 Disorder of thyroid, unspecified; E11.9 Type 2 diabetes mellitus without complications; K21.9 Gastro-esophageal reflux disease without esophagitis; Z87.442 Personal history of urinary calculi; Z79.4 Long term (current) use of insulin; Z79.82 Long term (current) use of aspirin; Z79.899 Other long term (current) drug therapy
CPT/HCPCS: 71045; 74176; 80048; 81001; 84484; 85025; 87086; 87088; 93005; 96361; 96372; 96374; 96375; 96376; 99284; J7030; A4216; J2405

== ENCOUNTER 2021-04-10 19:58 | Emergency (ER) | payer MEDICAID, SELFPAY ==
[2021-04-10 19:59] VITALS: BP 125/96; PULSE 127; RESP 18; TEMP 37.2; O2SAT 97; BMI 58.8
[2021-04-10 20:37] VITALS: BP 125/96; PULSE 127; RESP 18; TEMP 37.2; O2SAT 97
[2021-04-10 21:01] VITALS: BP 125/96; PULSE 127; RESP 18; TEMP 37.2; O2SAT 97
--- NOTE | 2021-04-10 21:10 | CT_ITS ---
STUDY: CT ABDOMEN AND PELVIS WITH CONTRAST REASON FOR EXAM: Female, 45 years old. Nausea vomiting, periumbilical hernia RADIATION DOSAGE (If Supplied By Facility): CTDIvol = ( 18.74 ) mGy, DLP = ( 1371.88 ) mGycm TECHNIQUE: Transaxial images were obtained from the dome of the diaphragm to the symphysis pubis without oral contrast. IV 100mL Isovue-[id number] was administered. Sagittal and coronal images were reconstructed. Individualized dose optimization techniques were used for this CT. COMPARISON: February 17, 2021. FINDINGS: Feeding tube extends to the stomach. The visualized lung bases are unremarkable. The visualized portions of the heart are within normal limits. Normal liver. There are surgical clips in the gallbladder fossa consistent with a prior cholecystectomy. Normal spleen. Normal pancreas. Normal bilateral adrenal glands. Normal right kidney. Normal left kidney. Normal visualized stomach. There is stable anterior abdominal wall hernia containing fat in nondilated small intestine. Normal colon. There are surgical clips in the region of the appendix consistent with a prior appendectomy. Normal abdominal aorta. Normal inferior vena cava. Normal retroperitoneum. Normal urinary bladder. There is absence of the uterus consistent with a prior hysterectomy. There is no free fluid in the abdomen or pelvis. There is degenerative change of the spine. CT/Abdomen/Pelvis W IV Cont ONLY IMPRESSION: Stable periumbilical hernia containing bowel. No obstruction.. Electronically Signed: Jeremy Silva MD at 22:58 EDT , Service support ,
[2021-04-10] MEDS: 0.9% Normal Saline 1,000 ML 1000 ML IV (21:17)
[2021-04-10] MEDS: Ondansetron 4 MG/2 ML Vial IV (21:17)
[2021-04-10] MEDS: Morphine 4 MG/ML Syringe IV ×2 (21:17→22:19)
[2021-04-10 21:29] LABS: Absolute Lymphocyte Count 3.93 X10^3/uL (0.83-4.51); Absolute Neutrophil Count 5.6 X10^3/uL (2.0-7.7); Basophil# 0.06 X10^3/uL; Basophil% 0.6 % (0-1); Eosinophil# 0.28 X10^3/uL; Eosinophils% 2.6 % (0-5); Hematocrit 47.2 % (37-47); Lymphocyte # 3.93 X10^3/ul (0.83-4.51); Lymphocyte % 37.2 % (19-41); Mean Corp Hgb Conc 33.9 g/dL (32-36); Mean Corpuscular Hgb 32.3 pg (27.0-32.0); Mean Corpuscular Volume 95.2 fL (81-99); Mean Platelet Vol. 10.7 fl (6.2-12.0); Monocyte# 0.64 X10^3/uL; Monocyte% 6.1 % (0-10); NRBC Flagged by Analyzer 0 % (0-5); Neutrophil # 5.64 X10^3/uL (2.7-7.7); Neutrophil % 53.3 % (47-70); Platelet Count 319 K/mm3 (150-450); RBC Distribution Width SD 41.8 fl (35.1-43.9); Red Blood Count 4.96 M/mm3 (4.2-5.4); White Blood Count 10.6 K/mm3 (4.4-11.0)
[2021-04-10] MEDS: LORazepam 2 MG/ML Syringe 0.5 MG IV (21:40)
[2021-04-10 21:42] LABS: ALB/GLOB Ratio 0.8 RATIO (0.9-2.4); AST(SGOT) 21 U/L (15-37); Alanine Aminotransfer ALT/SGPT 25 U/L (13-56); Albumin, Serum 3.7 g/dL (3.2-5.0); Alkaline Phosphatase 78 U/L (45-117); Anion Gap 9 (5-15); BUN 17 mg/dL (7-18); BUN/Creat Ratio 18.4 RATIO (10-20); Calcium,Total 9.2 mg/dL (8.5-10.1); Chloride 105 mmol/L (98-107); Creatinine, Serum 0.92 mg/dL (0.55-1.02); EST Glomerular Filtration Rate 69 mL/min (>60); Est Glom Filt Rate - Afr Amer 83 mL/min (>60); Estimated Creatinine Clearance 81.75 ml/min; Globulin 4.4 g/dL (2.2-4.2); Glucose 269 mg/dL (74-106); Protein, Total 8.1 g/dL (6.4-8.2); Sodium Level 137 mmol/L (136-145)
[2021-04-10 21:51] LABS: Lactic Acid 3.2 mmol/L (0.4-1.9)
[2021-04-10 22:00] VITALS: BP 168/94; PULSE 124; RESP 18; O2SAT 99
--- NOTE | 2021-04-10 23:12 | ED.VIS.GI ---
HPI HPI - GI History of Present Illness Chief Complaint: Abd Pain Informant: patient and spouse/S.O. Abdominal Pain/Flank Pain Onset: Today Context: Sudden Onset Timing: Continuous and Waxes and wanes Quality: Aching and Cramping Location: Diffuse Current Severity: Mild Maximum Severity: Moderate Worsened by: Nothing Relieved by: Nothing Nausea/Vomiting/Emesis GI Symptom: Positive for Nausea, Vomiting and - (Patient and states she has vomited 10 times since this morning. Emesis appeared brown and coffee-ground in appearance. Patient was even concerned it may appear like stool) Onset: Today Quality: Positive for Coffee ground Severity: Severe Diarrhea/Melena/Hematochezia GI Symptom: Positive for - (S. She has prior history of obstruction. She also has history of hernia.Patient states she is having trouble moving her bowels. She states she is making); Negative for Diarrhea, Melena and Hematochezia Associated Symptoms Associated Symptoms: Negative for Dysuria, Frequency and Hematuria Narrative Narrative: Patient is a middle-aged woman who is complaining of abdominal pain appears slightly uncomfortable. BMI is 59. She has a mosaic color to her skin. 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 She presents because of abdominal pain, known hernia, and vomiting what may appear to be coffee ground emesis versus stool. Emesis. She has decreased bowel movement. She states she feels terrible. She denies headache. She denies ocular, visual auditory symptoms. Denies cardiac respiratory symptoms. She has a file of multiple studies of been performed. She denies dysuria, frequency, urgency or hematuria. Prior similar symptoms: Yes Recent Illness/Hospitalization: No [facility] Medical History Anxiety and depression Carpal tunnel syndrome Diabetes type 2, uncontrolled Fatty liver Fibromyalgia GERD (gastroesophageal reflux disease) HTN (hypertension) Lupus Seasonal allergies Thyroid disease Home Medications oxybutynin chloride 5 mg tablet 5 mg PO TID 10/15/17 [History Last Taken 01/09/21] tizanidine 4 mg PO TID 01/18/18 [History Last Taken 01/09/21] venlafaxine 150 mg capsule,extended release 24 hr 150 mg PO BID cap 04/06/18 [History Last Taken 01/09/21] topiramate 100 mg PO BID tablet 05/01/18 [Rx Last Taken 01/09/21] glimepiride 8 mg PO QAM 11/06/18 [History Last Taken 01/09/21] Trulicity 3 mg SQ GOMEZ 01/22/19 [History Last Taken 01/07/21] atorvastatin 40 mg PO DAILY 06/01/20 [History Last Taken 01/09/21] levothyroxine 25 mcg PO DAILY 06/01/20 [History Last Taken 01/09/21] levothyroxine 300 mcg PO DAILY 06/01/20 [History Last Taken 01/09/21] lisinopril 10 mg PO DAILY 06/01/20 [History Last Taken 01/09/21] metoprolol succinate 50 mg PO BID 06/01/20 [History Last Taken 01/09/21] zolpidem 10 mg PO QHS 06/01/20 [History Last Taken 01/09/21] insulin glargine 50 unit SUBCUT BID 01/10/21 [History Last Taken Unknown] insulin lispro 25 u TIDCM 01/10/21 [History Last Taken Unknown] ondansetron 8 mg PO Q8H PRN #15 tab 01/11/21 [Rx Last Taken Unknown] buprenorphine 1 patch TOPICAL TH 04/10/21 [History Last Taken Unknown] gabapentin 300 mg PO TID 04/10/21 [History Last Taken Unknown] linaclotide [Linzess] 145 mcg PO DAILY 04/10/21 [History Last Taken Unknown] promethazine 25 mg PO Q8H PRN 04/10/21 [History Last Taken Unknown] promethazine 25 mg PO Q6H PRN PRN #10 tablet 04/11/21 [Rx Last Taken Unknown] promethazine [Promethegan] 25 mg RECTAL Q6H PRN PRN #6 suppos. 04/11/21 [Rx Last Taken Unknown] Allergy/AdvReac Type Severity Reaction Status Date / Time hydroxyzine [From Atarax] Allergy Hives Verified 04/10/21 20:02 Sulfa (Sulfonamide Allergy Hives Verified 04/10/21 20:02 Antibiotics) duloxetine [From Cymbalta] AdvReac Other Verified 04/10/21 20:02 raspberry AdvReac Other Verified 04/10/21 20:02 Family History Mother Arthritis Breast cancer Heart disease Father Heart disease Alcohol abuse Blood clot in vein Sister Anxiety Depression Brother Anxiety Surgical History cervical lymph node excision H/O hernia repair H/O sinus surgery H/O thyroidectomy H/O: History of incision and drainage Hx of appendectomy Hx of cholecystectomy l toe surgery S/P bronchoscopy S/P RUTH (total abdominal hysterectomy) Social History (Updated 04/10/21 @ 23:[address] Jonathan Armstrong MD) household members: spouse Smoking Status: Never smoker alcohol intake: current alcohol intake frequency: holidays/special occasions only substance use type: does not use ROS ROS ED Constitutional Constitutional ED: Reports chills; Denies fever(s), subjective, sweats or weight loss ENT ENT ED: Denies ear pain, rhinorrhea or sore throat Cardiovascular Cardiovascular: Denies chest pain, orthopnea, palpitations, paroxysmal nocturnal dyspnea or racing heartbeat Respiratory/Chest Respiratory/Chest: Denies cough, dyspnea, dyspnea on exertion, orthopnea, paroxysmal nocturnal dyspnea or sputum Gastrointestinal Gastrointestinal: Reports abdominal pain, constipation, nausea and vomiting; Denies diarrhea or melena Genitourinary Genitourinary ED: Denies dysuria, hematuria or urinary frequency Musculoskeletal Musculoskeletal: Denies arthralgias, back pain, myalgias or neck pain Integumentary Denies rash Neurologic Neurologic: Reports weakness; Denies headache(s) or paresthesias Psychiatric Psychiatric: Reports depression Endocrine Endocrinology: Denies polydipsia, polyphagia or polyuria Hematologic/Lymphatic Hematologic/Lymphatic: Denies easy bruising EXAM Physical Exam Const Vital Signs: 04/10/21 19:59 04/10/21 20:37 04/10/21 21:01 Temperature 98.9 F 98.9 F 98.9 F Temperature Source Temporal Temporal Temporal Pulse Rate 127 H 127 H 127 H Respiratory Rate 18 18 18 Blood Pressure 125/96 H 125/96 H 125/96 H Blood Pressure Mean 105 105 105 Pulse Ox 97 97 97 Oxygen Delivery Method Room Air Room Air Room Air 04/10/21 22:00 04/11/21 00:00 Temperature Temperature Source Pulse Rate 124 H 127 H Respiratory Rate 18 18 Blood Pressure 168/94 H 161/89 H Blood Pressure Mean 118 113 Pulse Ox 99 94 Oxygen Delivery Method Positive well nourished, well developed and obese General Appearance ED: well developed and other Patient not appear well. Nutritional Appearance: obese HEENT Reports dry mucous membranes normocephalic and atraumatic Mouth ED: Yes dry mucous membranes Mouth: dry mucous membranes Eyes PERRL and EOMs intact bilaterally General Eye ED: Negative for pale conjunctiva or scleral icterus Neck no lymphadenopathy, supple and no JVD Resp normal respiratory effort and clear to auscultation bilaterally Cardio regular rate, regular rhythm, S1 normal heart sound, S2 normal heart sound and no murmurs GI non-distended and no masses; Negative for non-tender Inspection: other Auscultation: hypoactive bowel sounds; Negative for normoactive bowel sounds Palpation: soft and tender other (Periumbilical. I believe the hernia is reducible.); Negative for guarding, rigid, hepatomegaly or splenomegaly Narrative: External genitalia appear normal. There is no erythema. There is no crepitus subcutaneous air since there was concern for air on CAT scan dated October 2020. Extremity full ROM General Extremety ED: Yes edema; Negative for tenderness General Extremity: edema Neuro CN's II-XII intact bilaterally and moves all extremities Sensorium / Orientation: alert, oriented to person, oriented to place and oriented to time Motor Exam: strength 5/5 throughout Psych mental status grossly normal Skin no wounds Lesions: no lesions Rashes: no rashes MDM MDM MDM Narrative Medical decision making narrative: NG was placed as determine if patient has a GI bleed. CAT scan was obtained because of concern for bowel obstruction. I was informed that patient had a significant return after the NG was placed. There is concern for bowel obstruction. Appropriate blood work was obtained. Patient has no evidence of obstruction on the CT. She has a chronic stable umbilical hernia. Since her white count is normal. Her electrolyte panel is normal. Anion gap is normal. Suspect the lactic acidosis is due to the Metformin. This may be the cause of her pain. She will need to follow-up with her primary care physician. Lab Data Attestation: I reviewed the patient's lab results. Lab results narrative: CBC is normal. H&H is a couple. Metabolic panel is unremarkable. Hepatic profile is unremarkable. Lactate elevated 3.2 this may be due to her diabetes. She is on Metformin. She did receive a liter of normal saline. Labs: Laboratory Results - last 24 hr 04/10/21 04/10/21 04/10/21 20:30 20:30 21:15 WBC 10.6 RBC 4.96 Hgb 16.0 H Hct 47.2 H MCV 95.2 MCH 32.3 H MCHC 33.9 RDW Std Deviation 41.8 RDW Coeff of Yajaira 12.0 Plt Count 319 MPV 10.7 Immature Gran % (Auto) 0.200 Neut % (Auto) 53.3 Lymph % (Auto) 37.2 [place] % (Auto) 6.1 Eos % (Auto) 2.6 Baso % (Auto) 0.6 Absolute Neuts (auto) 5.6 Absolute Lymphs (auto) 3.93 Nucleated RBC % 0 Sodium 137 Potassium 4.0 Chloride 105 Carbon Dioxide 23.0 Anion Gap 9 BUN 17 Creatinine 0.92 Estim Creat Clear Calc 81.75 Est GFR (MDRD) Af Amer 83 Est GFR (MDRD) Non-Af 69 BUN/Creatinine Ratio 18.4 Glucose 269 H Lactic Acid 3.2 H* Calcium 9.2 Total Bilirubin 0.60 AST 21 ALT 25 Alkaline Phosphatase 78 Total Protein 8.1 Albumin 3.7 Globulin 4.4 H Albumin/Globulin Ratio 0.8 L Radiography Diagnostic Testing: Radiology Impression Abdomen/Pelvis CT 04/10/21 21:10 IMPRESSION: Stable periumbilical hernia containing bowel. No obstruction.. Electronically Signed: Jeremy Silva MD at 22:58 EDT , Service support , Discharge Plan Triage Chief Complaint: Abd Pain ED Provider: NathanielJonathan Dx/Rx/DC Orders Clinical Impression: Nausea and vomiting in adult, Hernia, umbilical, Dehydration, mild, Hyperglycemia due to type 2 diabetes mellitus, Lactic acidosis due to diabetes mellitus Instructions: ED Diabetic Hyperglycemia, ED Diet for Vomiting or ..., ED Hernia (Adult) Prescriptions: New promethazine [Promethegan] 25 MG suppository 25 mg RECTAL Q6H PRN PRN (Reason: Nausea) Qty: 6 RF: 0 promethazine [promethazine] 25 MG tablet 25 mg PO Q6H PRN PRN (Reason: Nausea) Qty: 10 RF: 0 No Action oxybutynin chloride 5 mg tablet 5 mg PO TID RF: 0 venlafaxine 150 mg capsule,extended release 24hr 150 mg PO BID RF: 0 tizanidine 4 MG tablet 4 mg PO TID RF: 0 topiramate 100 MG tablet 100 mg PO BID RF: 0 glimepiride 2 MG tablet 8 mg PO QAM RF: 0 Trulicity 1.5 MG/0.5 ML pen injector 3 mg SQ GOMEZ RF: 0 atorvastatin 40 MG tablet 40 mg PO DAILY RF: 0 levothyroxine 300 MCG tablet 300 mcg PO DAILY RF: 0 levothyroxine 25 MCG tablet 25 mcg PO DAILY RF: 0 lisinopril 5 MG tablet 10 mg PO DAILY RF: 0 zolpidem 10 MG tablet 10 mg PO QHS RF: 0 metoprolol succinate 50 MG tablet extended release 24 hr 50 mg PO BID RF: 0 insulin glargine 100 unit/mL (3 mL) Insulin Pen 50 unit SUBCUT BID RF: 0 insulin lispro 25 u TIDCM RF: 0 ondansetron 8 mg tablet,disintegrating 8 mg PO Q8H PRN (Reason: nausea and vomiting) Qty: 15 RF: 0 promethazine 25 mg tablet 25 mg PO Q8H PRN (Reason: Nausea And Vomiting) RF: 0 gabapentin 300 mg capsule 300 mg PO TID RF: 0 buprenorphine 10 mcg/hour patch weekly 1 patch topical TH RF: 0 Linzess 145 mcg capsule 145 mcg PO DAILY RF: 0 Primary Care Provider: Lissett Begum NP Referrals: Lissett Begum NP, CANE PACKER-C [Primary Care Provider] - 3-5 Days if not improving Disposition Disposition: Home, Self Care
[2021-04-10] MEDS: HYDROmorphone 0.5 MG/0.5 ML SYRINGE IV (23:18)
[2021-04-11] VITALS: BP 161/89; PULSE 127; RESP 18; O2SAT 94
[2021-04-11] MEDS: Metoclopramide 10 MG/2 ML Vial 5 MG IV (00:02)
[2021-04-11] MEDS: HYDROmorphone 0.5 MG/0.5 ML SYRINGE IV (01:22)
[2021-04-11 01:23] LABS: Reflex Lactate? Y
[2021-04-11 01:30] VITALS: BP 161/74; PULSE 121; RESP 18; O2SAT 99
== END 2021-04-11 01:31 | disposition home or self-care (01) ==
PROVIDERS: Emergency Provider Emergency Medicine; PCP Nurse Practitioner Primary Care
DX: R11.2 Nausea with vomiting, unspecified (principal); K42.9 Umbilical hernia without obstruction or gangrene; E11.65 Type 2 diabetes mellitus with hyperglycemia; E87.2 Acidosis; E66.9 Obesity, unspecified; Z68.43 Body mass index [BMI] 50.0-59.9, adult; I10 Essential (primary) hypertension; E86.0 Dehydration; F32.9 Major depressive disorder, single episode, unspecified; F41.9 Anxiety disorder, unspecified; G56.00 Carpal tunnel syndrome, unspecified upper limb; E07.9 Disorder of thyroid, unspecified; M79.7 Fibromyalgia; K21.9 Gastro-esophageal reflux disease without esophagitis; K76.0 Fatty (change of) liver, not elsewhere classified; M32.9 Systemic lupus erythematosus, unspecified; Z79.4 Long term (current) use of insulin; Z79.899 Other long term (current) drug therapy
CPT/HCPCS: 74177; 80053; 83605; 85025; 96361; 96374; 96375; 96376; 99285; J7030; Q9967; A4216; J2405

== ENCOUNTER 2021-05-12 07:03 | Emergency (ER) | payer MEDICAID, SELFPAY ==
[2021-05-12 07:04] VITALS: BP 167/119; PULSE 125; RESP 8; TEMP 35.8; O2SAT 100; BMI 64.2
--- NOTE | 2021-05-12 07:31 | CT_ITS ---
HISTORY: Abdominal pain. TECHNIQUE: Helically acquired images were obtained of the abdomen and pelvis with contrast. A radiation dose optimization technique was used for this scan. 100 mL Isovue-370 IV/oral Gastrografin. # of images incl. paperwork: [phone]. COMPARISON: 04/10/2021. FINDINGS: LUNG BASES: Clear. BOWEL: Nasogastric tube removed. Oral contrast in the stomach and small bowel. Bowel nondilated. Appendectomy. No focal pericolonic inflammatory change observed. PERITONEUM: No significant ascites. LIVER/BILIARY TRACT: Unremarkable liver.Cholecystectomy. SPLEEN: Non-enlarged. PANCREAS: No peripancreatic inflammation. KIDNEYS AND URETERS: No hydronephrosis. Residual contrast in the renal collecting systems. ADRENAL GLANDS: Non-enlarged. VESSELS: No abdominal aortic aneurysm. PELVIC ORGANS: Absent uterus. ABDOMINAL WALL: Anterior scarring with small fat-containing ventral hernia and moderate periumbilical hernia containing small bowel. BONES: Mild degenerative change. CT/Abdomen/Pelvis without Cont IMPRESSION: Paraumbilical hernia containing small bowel without evidence for small bowel obstruction. Individualized dose optimization techniques were used for this CT. at 1110 Reported and signed by: Mel Santiago MD Electronically Signed: Mel Santiago MD at 11:09 EDT Tel , Service support ,
[2021-05-12 08:09] LABS: Absolute Lymphocyte Count 4.01 X10^3/uL (0.83-4.51); Absolute Neutrophil Count 4.7 X10^3/uL (2.0-7.7); Basophil# 0.05 X10^3/uL; Basophil% 0.5 % (0-1); Eosinophil# 0.23 X10^3/uL; Eosinophils% 2.4 % (0-5); Hematocrit 44.4 % (37-47); Hemoglobin 14.8 g/dL (12.0-15.0); Lymphocyte # 4.01 X10^3/ul (0.83-4.51); Lymphocyte % 41.5 % (19-41); Mean Corp Hgb Conc 33.3 g/dL (32-36); Mean Corpuscular Volume 95.9 fL (81-99); Monocyte# 0.63 X10^3/uL; Monocyte% 6.5 % (0-10); NRBC Flagged by Analyzer 0 % (0-5); Neutrophil # 4.72 X10^3/uL (2.7-7.7); Neutrophil % 48.9 % (47-70); Platelet Count 343 K/mm3 (150-450); RBC Distribution Width CV 12.4 % (11.6-14.6); RBC Distribution Width SD 44.1 fl (35.1-43.9); Red Blood Count 4.63 M/mm3 (4.2-5.4); White Blood Count 9.7 K/mm3 (4.4-11.0)
--- NOTE | 2021-05-12 08:13 | ED.VIS.GI ---
HPI HPI - GI History of Present Illness Chief Complaint: Abd Pain Informant: patient Abdominal Pain/Flank Pain Onset: Days (4) Context: Gradual Onset Timing: Continuous Quality: Burning and Stabbing Location: Diffuse Worsened by: Nothing Relieved by: Nothing Nausea/Vomiting/Emesis GI Symptom: Positive for Nausea and Vomiting Quality: Negative for Blood streaks, Coffee ground and Hematemesis Diarrhea/Melena/Hematochezia GI Symptom: Negative for Diarrhea, Melena and Hematochezia Associated Symptoms Associated Symptoms: Negative for Dysuria, Frequency and Hematuria Narrative Narrative: Patient presents with abdominal pain, nausea, and vomiting for the last 4 days. Patient states nothing makes it better nothing makes it worse. Patient states she has been following up stomach contents. Patient states she is unable to keep anything down. Patient states she has diffuse abdominal pain. Patient describes it as aching and stabbing. Patient states that she tore open the skin in her lower abdomen from vomiting. Patient denies any diarrhea, melena, or hematochezia. Patient denies any hematemesis or coffee-ground emesis. Patient denies any urinary complaints. [facility] Medical History Anxiety and depression Carpal tunnel syndrome Diabetes type 2, uncontrolled Fatty liver Fibromyalgia GERD (gastroesophageal reflux disease) HTN (hypertension) Lupus Seasonal allergies Thyroid disease Home Medications oxybutynin chloride 5 mg tablet 5 mg PO TID 10/15/17 [History Last Taken 01/09/21] tizanidine 4 mg PO TID 01/18/18 [History Last Taken 01/09/21] venlafaxine 150 mg capsule,extended release 24 hr 150 mg PO BID cap 04/06/18 [History Last Taken 01/09/21] topiramate 100 mg PO BID tablet 05/01/18 [Rx Last Taken 01/09/21] glimepiride 8 mg PO QAM 11/06/18 [History Last Taken 01/09/21] Trulicity 3 mg SQ GOMEZ 01/22/19 [History Last Taken 01/07/21] atorvastatin 40 mg PO DAILY 06/01/20 [History Last Taken 01/09/21] levothyroxine 25 mcg PO DAILY 06/01/20 [History Last Taken 01/09/21] levothyroxine 300 mcg PO DAILY 06/01/20 [History Last Taken 01/09/21] lisinopril 10 mg PO DAILY 06/01/20 [History Last Taken 01/09/21] metoprolol succinate 50 mg PO BID 06/01/20 [History Last Taken 01/09/21] zolpidem 10 mg PO QHS 06/01/20 [History Last Taken 01/09/21] insulin glargine 50 unit SUBCUT BID 01/10/21 [History Last Taken Unknown] insulin lispro 25 u TIDCM 01/10/21 [History Last Taken Unknown] ondansetron 8 mg PO Q8H PRN #15 tab 01/11/21 [Rx Last Taken Unknown] buprenorphine 1 patch TOPICAL TH 04/10/21 [History Last Taken Unknown] gabapentin 300 mg PO TID 04/10/21 [History Last Taken Unknown] linaclotide [Linzess] 145 mcg PO DAILY 04/10/21 [History Last Taken Unknown] promethazine 25 mg PO Q8H PRN 04/10/21 [History Last Taken Unknown] promethazine 25 mg PO Q6H PRN PRN #10 tablet 04/11/21 [Rx Last Taken Unknown] lorazepam 0.5 mg PO TID #10 tab 05/12/21 [Rx Last Taken Unknown] oxycodone-acetaminophen 1 tab PO Q6H PRN PRN 3 Days #12 tablet 05/12/21 [Rx Last Taken Unknown] promethazine [Promethegan] 25 mg HI Q6H PRN PRN #12 ea 05/12/21 [Rx Last Taken Unknown] Allergy/AdvReac Type Severity Reaction Status Date / Time hydroxyzine [From Atarax] Allergy Hives Verified 05/12/21 07:04 Sulfa (Sulfonamide Allergy Hives Verified 05/12/21 07:04 Antibiotics) duloxetine [From Cymbalta] AdvReac Other Verified 05/12/21 07:04 raspberry AdvReac Other Verified 05/12/21 07:04 Family History Mother Arthritis Breast cancer Heart disease Father Heart disease Alcohol abuse Blood clot in vein Sister Anxiety Depression Brother Anxiety Surgical History cervical lymph node excision H/O hernia repair H/O sinus surgery H/O thyroidectomy H/O: History of incision and drainage Hx of appendectomy Hx of cholecystectomy l toe surgery S/P bronchoscopy S/P RUTH (total abdominal hysterectomy) Social History household members: spouse Smoking Status: Never smoker alcohol intake: current alcohol intake frequency: holidays/special occasions only substance use type: does not use ROS ROS ED Constitutional Constitutional ED: Reports chills and subjective; Denies fever(s) Eyes Eyes: Denies blurry vision or change in vision ENT ENT ED: Denies rhinorrhea or sore throat Cardiovascular Cardiovascular: Reports racing heartbeat; Denies chest pain or palpitations Respiratory/Chest Respiratory/Chest: Denies cough or dyspnea Gastrointestinal Gastrointestinal: Reports abdominal pain, nausea and vomiting Genitourinary Genitourinary ED: Denies dysuria or hematuria Musculoskeletal Musculoskeletal: Denies back pain or neck pain Integumentary Denies abscess or rash Neurologic Neurologic: Denies headache(s) or weakness Allergic/Immunologic Allergic/Immunologic ED: Denies mouth swelling or urticaria EXAM Physical Exam Const Vital Signs: 05/12/21 07:04 05/12/21 09:32 05/12/21 11:17 Temperature 96.5 F L Temperature Source Temporal Pulse Rate 125 H 116 H 104 H Respiratory Rate 8 L Blood Pressure 167/119 H 158/99 H Blood Pressure Mean 135 118 Pulse Ox 100 98 Oxygen Delivery Method Room Air Room Air Positive well nourished, well developed and obese General Appearance ED: well developed Nutritional Appearance: obese HEENT Reports moist mucous membranes Neck supple and no JVD Resp normal respiratory effort and clear to auscultation bilaterally Cardio regular rate, regular rhythm and no murmurs GI normal to inspection, nondistended, normoactive bowel sounds and non-distended Palpation: soft and tender epigastric, LLQ, RLQ, LUQ, periumbilical and suprapubic; Negative for guarding or rebound tenderness present Extremity normal to inspection General Extremety ED: Negative for edema or tenderness General Extremity: Negative for edema Neuro oriented x3, CN's II-XII intact bilaterally and no sensory deficits noted Sensorium / Orientation: alert Motor Exam: strength 5/5 throughout Psych mental status grossly normal Skin no rashes or lesions noted MDM MDM MDM Narrative Medical decision making narrative: Patient was to be fluids, morphine, and Zofran. CBC and comprehensive metabolic profile were within normal limits. Lipase was normal. CT scan of the abdomen and pelvis was obtained with oral contrast. There is a periumbilical hernia containing small bowel but there is no evidence of bowel obstruction. This was interpreted by the radiologist and reviewed by myself. Patient was given repeat dose of morphine and Benadryl here. Patient states she feels shaky. Patient was given prescriptions for Percocet, Phenergan suppositories, and a short course of Ativan. Patient states she has an appointment scheduled with a plastic surgery manager in [place]. Patient was instructed to continue this appointment. Patient was instructed to follow-up with her primary care physician in 3 to 5 days. Patient was instructed to return if worse in any way. Patient understood and was agreeable with the plan. All questions were answered. Lab Data Attestation: I reviewed the patient's lab results. Labs: Laboratory Results - last 24 hr 05/12/21 05/12/21 08:00 08:00 WBC 9.7 RBC 4.63 Hgb 14.8 Hct 44.4 MCV 95.9 MCH 32.0 MCHC 33.3 RDW Std Deviation 44.1 H RDW Coeff of Yajaira 12.4 Plt Count 343 MPV 10.0 Immature Gran % (Auto) 0.200 Neut % (Auto) 48.9 Lymph % (Auto) 41.5 H [place] % (Auto) 6.5 Eos % (Auto) 2.4 Baso % (Auto) 0.5 Absolute Neuts (auto) 4.7 Absolute Lymphs (auto) 4.01 Nucleated RBC % 0 Sodium 138 Potassium 3.7 Chloride 105 Carbon Dioxide 25.0 Anion Gap 8 BUN 10 Creatinine 0.91 Estim Creat Clear Calc 74.32 Est GFR (MDRD) Af Amer 85 Est GFR (MDRD) Non-Af 70 BUN/Creatinine Ratio 11.0 Glucose 275 H Calcium 8.9 Total Bilirubin 0.70 AST 32 ALT 33 Alkaline Phosphatase 63 Total Protein 7.4 Albumin 3.4 Globulin 4.0 Albumin/Globulin Ratio 0.8 L Lipase 35 L Radiography Diagnostic Testing: Radiology Impression Abdomen/Pelvis CT 05/12/21 07:31 IMPRESSION: Paraumbilical hernia containing small bowel without evidence for small bowel obstruction. Individualized dose optimization techniques were used for this CT. at 1110 Reported and signed by: Mel Santiago MD Electronically Signed: Mel Santiago MD at 11:09 EDT Tel , Service support , Discharge Plan Triage Chief Complaint: Abd Pain ED Provider: Mickey Cevallos Dx/Rx/DC Orders Clinical Impression: Abdominal pain Instructions: ED Abdominal Pain Unkn Cause Fem Prescriptions: New oxycodone-acetaminophen [oxycodone-acetaminophen] 1 TABLET tablet 1 tab PO Q6H PRN PRN (Reason: Pain) 3 Days Qty: 12 RF: 0 lorazepam [lorazepam] 0.5 MG tablet 0.5 mg PO TID Qty: 10 RF: 0 Changed promethazine [Promethegan] 25 MG suppository 25 mg HI Q6H PRN PRN (Reason: Nausea) Qty: 12 RF: 0 No Action oxybutynin chloride 5 mg tablet 5 mg PO TID RF: 0 venlafaxine 150 mg capsule,extended release 24hr 150 mg PO BID RF: 0 tizanidine 4 MG tablet 4 mg PO TID RF: 0 topiramate 100 MG tablet 100 mg PO BID RF: 0 glimepiride 2 MG tablet 8 mg PO QAM RF: 0 Trulicity 1.5 MG/0.5 ML pen injector 3 mg SQ GOMEZ RF: 0 atorvastatin 40 MG tablet 40 mg PO DAILY RF: 0 levothyroxine 300 MCG tablet 300 mcg PO DAILY RF: 0 levothyroxine 25 MCG tablet 25 mcg PO DAILY RF: 0 lisinopril 5 MG tablet 10 mg PO DAILY RF: 0 zolpidem 10 MG tablet 10 mg PO QHS RF: 0 metoprolol succinate 50 MG tablet extended release 24 hr 50 mg PO BID RF: 0 insulin glargine 100 unit/mL (3 mL) Insulin Pen 50 unit SUBCUT BID RF: 0 insulin lispro 25 u TIDCM RF: 0 ondansetron 8 mg tablet,disintegrating 8 mg PO Q8H PRN (Reason: nausea and vomiting) Qty: 15 RF: 0 promethazine 25 mg tablet 25 mg PO Q8H PRN (Reason: Nausea And Vomiting) RF: 0 gabapentin 300 mg capsule 300 mg PO TID RF: 0 buprenorphine 10 mcg/hour patch weekly 1 patch topical TH RF: 0 Linzess 145 mcg capsule 145 mcg PO DAILY RF: 0 promethazine [promethazine] 25 MG tablet 25 mg PO Q6H PRN PRN (Reason: Nausea) Qty: 10 RF: 0 Primary Care Provider: Lissett Begum NP Referrals: Lissett Begum NP, PRODUCT CONTROL AND LOGISTICS ANALYST-C [Primary Care Provider] - 3-5 Days Disposition Disposition: Home, Self Care
[2021-05-12 08:24] LABS: ALB/GLOB Ratio 0.8 RATIO (0.9-2.4); AST(SGOT) 32 U/L (15-37); Alanine Aminotransfer ALT/SGPT 33 U/L (13-56); Albumin, Serum 3.4 g/dL (3.2-5.0); Alkaline Phosphatase 63 U/L (45-117); Anion Gap 8 (5-15); BUN 10 mg/dL (7-18); Calcium,Total 8.9 mg/dL (8.5-10.1); Chloride 105 mmol/L (98-107); Creatinine, Serum 0.91 mg/dL (0.55-1.02); EST Glomerular Filtration Rate 70 mL/min (>60); Est Glom Filt Rate - Afr Amer 85 mL/min (>60); Estimated Creatinine Clearance 74.32 ml/min; Glucose 275 mg/dL (74-106); Lipase 35 U/L (73-393); Potassium 3.7 mmol/L (3.5-5.1); Protein, Total 7.4 g/dL (6.4-8.2); Sodium Level 138 mmol/L (136-145)
[2021-05-12] MEDS: 0.9% Normal Saline 1,000 ML 1000 ML IV (08:25)
[2021-05-12] MEDS: Morphine 4 MG/ML Syringe IV (09:02)
[2021-05-12] MEDS: Ondansetron 4 MG/2 ML Vial IV (09:02)
[2021-05-12 09:32] VITALS: PULSE 116; O2SAT 98
--- NOTE | 2021-05-12 11:15 | CCN.REFER ---
pt requesting more pain meds and something to stop the shaking, provider aware. pt states that she can not give an urine sample at the time. provider aware, no new orders.
[2021-05-12 11:17] VITALS: BP 158/99; PULSE 104
[2021-05-12] MEDS: Morphine 4 MG/ML Syringe IM (11:40)
[2021-05-12] MEDS: DiphenhydrAMINE 50 MG/ML Syringe 25 MG IM (11:41)
--- NOTE | 2021-05-12 11:46 | ED.RN ---
pt states she is being ignored and not getting pain meds. tried to explain to pt that she is important, however there have been other ill pt. pt said she is just as important as anyone else.
--- NOTE | 2021-05-12 12:20 | ED.RN ---
THIS NURSE HAD BEEN CALLED OUT OF PT'S ROOM FOR HER PT THAT IS HAVING A STROKE, PT AND HER BOTH FRUSTRATED THAT THIS NURSE WAS CALLED, AGAIN PT STATING THAT SHE IS JUST IMPORTANT BECAUSE THERE IS SOMETHING WRONG WITH HER STOMACH.
--- NOTE | 2021-05-12 12:25 | ED.RN ---
PT CONCERNED ABOUT IV SITE THAT HAD INFILTRATED IN IMAGING. THIS NURSE HAD GIVEN HER AN ICE PACK. A SECOND ICE PACK WAS GIVEN. PROVIDER HAD PREVIOUSLY EXAMINED THAT SITE. THIS NURSE SPOKE WITH THE PROVIDER REGARDING HER CONCERNS, PROVIDER REINFORCED WITH THIS NURSE TO KEEP AN ICE PACK ON SITE AND THAT THERE WOULD BE SWELLING. THIS NURSE AGAIN ATTEMPTED TO EDUCATE THE PT.
--- NOTE | 2021-05-12 12:31 | ED.RN ---
pharmacy called to verify medications. no suppository available for promethazine. verbal order to change to oral route with dr. caruso. pt discharged and picking up prescriptions from drive thru
[2021-05-12 12:32] VITALS: RESP 18
== END 2021-05-12 12:33 | disposition home or self-care (01) ==
PROVIDERS: Emergency Provider Emergency Medicine; PCP Nurse Practitioner Primary Care
DX: R10.84 Generalized abdominal pain (principal); R11.2 Nausea with vomiting, unspecified; K42.9 Umbilical hernia without obstruction or gangrene; E66.9 Obesity, unspecified; Z68.44 Body mass index [BMI] 60.0-69.9, adult; I10 Essential (primary) hypertension; F32.9 Major depressive disorder, single episode, unspecified; F41.9 Anxiety disorder, unspecified; G56.00 Carpal tunnel syndrome, unspecified upper limb; K76.0 Fatty (change of) liver, not elsewhere classified; E11.9 Type 2 diabetes mellitus without complications; K21.9 Gastro-esophageal reflux disease without esophagitis; M32.9 Systemic lupus erythematosus, unspecified; Z87.19 Personal history of other diseases of the digestive system; Z79.4 Long term (current) use of insulin; Z79.899 Other long term (current) drug therapy
CPT/HCPCS: 74176; 80053; 83690; 85025; 87426; 96361; 96372; 96374; 96375; 99284; J7030; A4216; J2405

== ENCOUNTER 2021-07-18 15:54 | Emergency (ER) | payer MEDICAID, SELFPAY ==
[2021-07-18 15:56] VITALS: BP 128/63; PULSE 70; RESP 11; TEMP 36.1; O2SAT 98; BMI 60.1
--- NOTE | 2021-07-18 16:29 | EKG12_ITS ---
Test Reason : CP Blood Pressure : / mmHG Vent. Rate : 066 BPM Atrial Rate : 066 BPM P-R Int : 156 ms QRS Dur : 096 ms QT Int : 432 ms P-R-T Axes : 020 018 -03 degrees QTc Int : 452 ms Normal sinus rhythm Low voltage QRS Inferior infarct , age undetermined Abnormal ECG Confirmed by TANIA PRESSLEY, JOESPH ([id number]), primer expeditor and drier ANNELISE SCHMITZ ([id number]) on 07/23/2021 9:40:24 AM Referred By: RAMOS/BLAIRE Confirmed By:DAISY MARIN MD
--- NOTE | 2021-07-18 16:30 | EX.ED.DYSGE1 ---
HPI History of Present Illness Chief Complaint: Chest Pain Informant: patient Onset/Context/Timing Onset: Today Current Severity: Mild Maximum Severity: Moderate Narrative Narrative: Patient presents via EMS secondary to chest pain. She reportedly was driving her car when she had sudden onset of chest pain. She stopped her car and called 911. She now has a headache as well and states that she feels like she is confused. Patient states that she had a cardiac event caused by stress in March 2020. She does not have any stents. She had a stress test here in December 2020 that was unremarkable. [facility] Medical History Anxiety and depression Carpal tunnel syndrome Diabetes type 2, uncontrolled Fatty liver Fibromyalgia GERD (gastroesophageal reflux disease) HTN (hypertension) Lupus Seasonal allergies Thyroid disease Home Medications oxybutynin chloride 5 mg tablet 5 mg PO TID 10/15/17 [History Last Taken 01/09/21] tizanidine 4 mg PO TID 01/18/18 [History Last Taken 01/09/21] venlafaxine 150 mg capsule,extended release 24 hr 150 mg PO BID cap 04/06/18 [History Last Taken 01/09/21] topiramate 100 mg PO BID tablet 05/01/18 [Rx Last Taken 01/09/21] glimepiride 4 mg PO BID 11/06/18 [History Last Taken 01/09/21] Trulicity 3 mg SQ GOMEZ 01/22/19 [History Last Taken 01/07/21] atorvastatin 40 mg PO DAILY 06/01/20 [History Last Taken 01/09/21] levothyroxine 25 mcg PO DAILY 06/01/20 [History Last Taken 01/09/21] levothyroxine 300 mcg PO DAILY 06/01/20 [History Last Taken 01/09/21] lisinopril 10 mg PO DAILY 06/01/20 [History Last Taken 01/09/21] metoprolol succinate 50 mg PO BID 06/01/20 [History Last Taken 01/09/21] zolpidem 10 mg PO QHS 06/01/20 [History Last Taken 01/09/21] insulin glargine 50 unit SUBCUT BID 01/10/21 [History Last Taken Unknown] insulin lispro 25 u TIDCM 01/10/21 [History Last Taken Unknown] ondansetron 8 mg PO Q8H PRN #15 tab 01/11/21 [Rx Last Taken Unknown] buprenorphine 2 patch TOPICAL TH 04/10/21 [History Last Taken Unknown] gabapentin 100 mg PO BID 04/10/21 [History Last Taken Unknown] linaclotide [Linzess] 145 mcg PO DAILY 04/10/21 [History Last Taken Unknown] promethazine 25 mg PO Q8H PRN 04/10/21 [History Last Taken Unknown] promethazine 25 mg PO Q6H PRN PRN #10 tablet 04/11/21 [Rx Last Taken Unknown] lorazepam 0.5 mg PO TID #10 tab 05/12/21 [Rx Last Taken Unknown] oxycodone-acetaminophen 1 tab PO Q6H PRN PRN 3 Days #12 tablet 05/12/21 [Rx Last Taken Unknown] promethazine [Promethegan] 25 mg IN Q6H PRN PRN #12 ea 05/12/21 [Rx Last Taken Unknown] Allergy/AdvReac Type Severity Reaction Status Date / Time hydroxyzine [From Atarax] Allergy Hives Verified 07/18/21 16:00 Sulfa (Sulfonamide Allergy Hives Verified 07/18/21 16:00 Antibiotics) duloxetine [From Cymbalta] AdvReac Other Verified 07/18/21 16:00 raspberry AdvReac Other Verified 07/18/21 16:00 Family History Mother Arthritis Breast cancer Heart disease Father Heart disease Alcohol abuse Blood clot in vein Sister Anxiety Depression Brother Anxiety Surgical History cervical lymph node excision H/O hernia repair H/O sinus surgery H/O thyroidectomy H/O: History of incision and drainage Hx of appendectomy Hx of cholecystectomy l toe surgery S/P bronchoscopy S/P RUTH (total abdominal hysterectomy) Social History household members: spouse Smoking Status: Never smoker alcohol intake: current alcohol intake frequency: holidays/special occasions only substance use type: does not use ROS ROS ED Constitutional Constitutional ED: Denies chills or fever(s) Eyes Eyes: Denies change in vision ENT ENT ED: Denies sore throat Cardiovascular Cardiovascular: Reports chest pain Respiratory/Chest Respiratory/Chest: Denies cough or dyspnea Gastrointestinal Gastrointestinal: Reports nausea and vomiting; Denies abdominal pain or diarrhea Genitourinary Genitourinary ED: Denies dysuria Musculoskeletal Musculoskeletal: Denies back pain Integumentary Denies rash Neurologic Neurologic: Reports headache(s) and weakness Allergic/Immunologic Allergic/Immunologic ED: Denies urticaria EXAM Physical Exam Const Vital Signs: 07/18/21 15:56 07/18/21 18:17 Temperature 97 F L Temperature Source Temporal Pulse Rate 70 96 Respiratory Rate 11 L 17 Respiratory Effort Normal Non-Labored Respiratory Pattern Normal Blood Pressure 128/63 H Blood Pressure Mean 84 Pulse Ox 98 92 Oxygen Delivery Method Room Air Room Air Positive obese Nutritional Appearance: obese Eyes PERRL and EOMs intact bilaterally Neck supple Chest Wall inspection of chest normal and palpation of chest normal Resp normal respiratory effort and clear to auscultation bilaterally Cardio regular rate and regular rhythm GI normal to inspection, nondistended, normoactive bowel sounds and non-tender Palpation: soft Extremity normal to inspection Neuro oriented x3 Sensorium / Orientation: alert Skin no rashes or lesions noted MDM MDM MDM Narrative Medical decision making narrative: Patient was given morphine and Zofran for pain. EKG, lab work, head CT, CTA chest obtained. Lab Data Attestation: I reviewed the patient's lab results. Labs: Laboratory Results - last 24 hr 07/18/21 07/18/21 18:10 18:10 WBC 10.2 RBC 4.33 Hgb 14.2 Hct 41.8 MCV 96.5 MCH 32.8 H MCHC 34.0 RDW Std Deviation 47.0 H RDW Coeff of Yajaira 13.2 Plt Count 257 MPV 9.9 Immature Gran % (Auto) 0.400 Neut % (Auto) 57.0 Lymph % (Auto) 34.4 [place] % (Auto) 5.7 Eos % (Auto) 2.0 Baso % (Auto) 0.5 Absolute Neuts (auto) 5.9 Absolute Lymphs (auto) 3.52 Nucleated RBC % 0 Sodium 136 Potassium 5.4 H Chloride 103 Carbon Dioxide 25.0 Anion Gap 8 BUN 13 Creatinine 1.09 H Estim Creat Clear Calc 68.26 Est GFR (MDRD) Af Amer 69 Est GFR (MDRD) Non-Af 57 L BUN/Creatinine Ratio 11.9 Glucose 246 H Calcium 9.1 Total Bilirubin 0.40 Direct Bilirubin 0.06 AST 37 ALT 31 Alkaline Phosphatase 56 Troponin I High Sens 4 Total Protein 7.0 Albumin 2.9 L Globulin 4.1 Lipase 58 L Radiography Diagnostic Testing: Clinical Impression(s) from Imaging Studies Brain CT 07/18/21 19:50 IMPRESSION: Mild cortical atrophy for stated age. No mass or acute bleed.. If clinical suspicion for acute infarct MRI recommended Electronically Signed: Mark Hough MD at 20:38 EST , Service support , Chest CTA 07/18/21 19:50 IMPRESSION: 1. There is limited enhancement of the main pulmonary artery and right and left pulmonary arteries. There is limited enhancement of the bilateral peripheral pulmonary arteries. There is no large or obvious demonstrated pulmonary embolism, however small emboli cannot be excluded. 2. . No consolidation or pulmonary edema or pleural effusion is seen. Electronically Signed: César Zabala MD at 21:24 EST , Service support , EKG Initial EKG: Attestation: I personally reviewed and interpreted this EKG as follows: Interpretation: Sinus Rhythm (Sinus at 66 with no acute ischemia) Treatment and Re-Evaluation Comments:: Patient's lab work unremarkable. Head CT normal. CTA reveals no evidence of dissection which was my primary concern. On repeat evaluation patient complained of continued headache. She was ordered Toradol, Reglan, Benadryl. After being given the Toradol and Benadryl she broke out in hives on her hands. Reglan was not given. She states she had both of these medications in the past without difficulty. Patient was given a dose of Solu-Medrol. This time nursing staff states that she ran out stating that she is ready to go. Again patient did have heart cath 14 months ago with no blockages and a normal stress test in December of this year. Discharge Plan Triage Chief Complaint: Chest Pain ED Provider: Jailene Littlejohn Dx/Rx/DC Orders Clinical Impression: Chest pain, Headache Instructions: ED Chest Pain, Uncertain Cause, ED, Migraine (Classical) Prescriptions: No Action oxybutynin chloride 5 mg tablet 5 mg PO TID RF: 0 venlafaxine 150 mg capsule,extended release 24hr 150 mg PO BID RF: 0 tizanidine 4 MG tablet 4 mg PO TID RF: 0 topiramate 100 MG tablet 100 mg PO BID RF: 0 glimepiride 2 MG tablet 4 mg PO BID RF: 0 Trulicity 1.5 MG/0.5 ML pen injector 3 mg SQ GOMEZ RF: 0 atorvastatin 40 MG tablet 40 mg PO DAILY RF: 0 levothyroxine 300 MCG tablet 300 mcg PO DAILY RF: 0 levothyroxine 25 MCG tablet 25 mcg PO DAILY RF: 0 lisinopril 5 MG tablet 10 mg PO DAILY RF: 0 zolpidem 10 MG tablet 10 mg PO QHS RF: 0 metoprolol succinate 50 MG tablet extended release 24 hr 50 mg PO BID RF: 0 insulin glargine 100 unit/mL (3 mL) Insulin Pen 50 unit SUBCUT BID RF: 0 insulin lispro 25 u TIDCM RF: 0 ondansetron 8 mg tablet,disintegrating 8 mg PO Q8H PRN (Reason: nausea and vomiting) Qty: 15 RF: 0 promethazine 25 mg tablet 25 mg PO Q8H PRN (Reason: Nausea And Vomiting) RF: 0 gabapentin 300 mg capsule 100 mg PO BID RF: 0 buprenorphine 10 mcg/hour patch weekly 2 patch topical TH RF: 0 Linzess 145 mcg capsule 145 mcg PO DAILY RF: 0 promethazine [promethazine] 25 MG tablet 25 mg PO Q6H PRN PRN (Reason: Nausea) Qty: 10 RF: 0 oxycodone-acetaminophen [oxycodone-acetaminophen] 1 TABLET tablet 1 tab PO Q6H PRN PRN (Reason: Pain) 3 Days Qty: 12 RF: 0 lorazepam [lorazepam] 0.5 MG tablet 0.5 mg PO TID Qty: 10 RF: 0 promethazine [Promethegan] 25 MG suppository 25 mg IN Q6H PRN PRN (Reason: Nausea) Qty: 12 RF: 0 Primary Care Provider: Lissett Begum NP Referrals: Lissett Begum NP, [employer]INEERING MANAGER-[employer] [Primary Care Provider] - 3-5 Days if not improving Disposition Disposition: Home, Self Care
[2021-07-18] MEDS: Morphine 4 MG/ML Syringe IV ×2 (18:13→19:25)
[2021-07-18] MEDS: Ondansetron 4 MG/2 ML Vial IV ×2 (18:13→19:25)
[2021-07-18 18:17] VITALS: PULSE 96; RESP 17; O2SAT 92
[2021-07-18 18:20] LABS: Absolute Lymphocyte Count 3.52 X10^3/uL (0.83-4.51); Absolute Neutrophil Count 5.9 X10^3/uL (2.0-7.7); Basophil# 0.05 X10^3/uL; Basophil% 0.5 % (0-1); Hematocrit 41.8 % (37-47); Hemoglobin 14.2 g/dL (12.0-15.0); Lymphocyte # 3.52 X10^3/ul (0.83-4.51); Lymphocyte % 34.4 % (19-41); Mean Corpuscular Hgb 32.8 pg (27.0-32.0); Mean Corpuscular Volume 96.5 fL (81-99); Mean Platelet Vol. 9.9 fl (6.2-12.0); Monocyte# 0.58 X10^3/uL; Monocyte% 5.7 % (0-10); NRBC Flagged by Analyzer 0 % (0-5); Neutrophil # 5.85 X10^3/uL (2.7-7.7); Platelet Count 257 K/mm3 (150-450); RBC Distribution Width CV 13.2 % (11.6-14.6); Red Blood Count 4.33 M/mm3 (4.2-5.4); White Blood Count 10.2 K/mm3 (4.4-11.0)
[2021-07-18 19:02] LABS: AST(SGOT) 37 U/L (15-37); Alanine Aminotransfer ALT/SGPT 31 U/L (13-56); Albumin, Serum 2.9 g/dL (3.2-5.0); Alkaline Phosphatase 56 U/L (45-117); Anion Gap 8 (5-15); BUN 13 mg/dL (7-18); BUN/Creat Ratio 11.9 RATIO (10-20); Bilirubin, Direct 0.06 mg/dL (0.00-0.30); Calcium,Total 9.1 mg/dL (8.5-10.1); Chloride 103 mmol/L (98-107); Creatinine, Serum 1.09 mg/dL (0.55-1.02); EST Glomerular Filtration Rate 57 mL/min (>60); Est Glom Filt Rate - Afr Amer 69 mL/min (>60); Estimated Creatinine Clearance 68.26 ml/min; Globulin 4.1 g/dL (2.2-4.2); Glucose 246 mg/dL (74-106); Lipase 58 U/L (73-393); Potassium 5.4 mmol/L (3.5-5.1); Sodium Level 136 mmol/L (136-145); Troponin-I HS 4 pg/mL (3.0-54.0)
--- NOTE | 2021-07-18 19:50 | CT_ITS ---
STUDY: CTA CHEST REASON FOR EXAM: Female, 46 years old. chest pain -- R/O dissection RADIATION DOSAGE (If Supplied By Facility): CTDIvol = ( 18.91 ) mGy, DLP = ( 883.56 ) mGycm TECHNIQUE: The examination was performed with the intravenous administration of IV 100mL Isovue-370. Post-processing of the angiographic images was performed, with multiplanar reformation and 3D reconstruction. Individualized dose optimization techniques were used for this CT. COMPARISON: Chest x-ray dated February 17, 2021 FINDINGS: There is limited enhancement of the main pulmonary artery and right and left pulmonary arteries. There is limited enhancement of the bilateral peripheral pulmonary arteries. There is no large or obvious demonstrated pulmonary embolism, however small emboli cannot be excluded. Unremarkable thoracic aorta and visualized great vessels. Minimal atherosclerotic plaque is present. There is no demonstrated aortic dissection. Normal heart and pericardium. Normal mediastinum. Normal hilar regions. Normal visualized trachea and bronchi. The lungs are well expanded. Normal pulmonary parenchyma. No consolidation or pulmonary edema or pleural effusion is seen. Normal pleura. Normal chest wall structures. Normal osseous structures. Normal visualized upper abdomen. CT/CTA Chest W/WO Contrast IMPRESSION: 1. There is limited enhancement of the main pulmonary artery and right and left pulmonary arteries. There is limited enhancement of the bilateral peripheral pulmonary arteries. There is no large or obvious demonstrated pulmonary embolism, however small emboli cannot be excluded. 2. . No consolidation or pulmonary edema or pleural effusion is seen. Electronically Signed: César Zabala MD at 21:24 EST , Service support ,
--- NOTE | 2021-07-18 19:50 | CT_ITS ---
STUDY: CT BRAIN WITHOUT CONTRAST REASON FOR EXAM: Female, 46 years old. confusion RADIATION DOSAGE (If Supplied By Facility): CTDIvol = ( 44.99 ) mGy, DLP = ( 863.60 ) mGycm TECHNIQUE: Transaxial CT imaging of the brain was performed without administration of intravenous contrast material. Individualized dose optimization techniques were used for this CT. COMPARISON: 10/18/2020 FINDINGS: Normal soft tissue structures. Normal calvarium. Mild cortical atrophy for stated age Normal white matter tracts of the cerebral hemispheres. Normal basal ganglia and thalami. Normal brainstem. Normal cerebellum. There is no intracranial hemorrhage. There are no findings of an acute ischemic infarction. Normal visualized paranasal sinuses. CT/Brain/Head without Contrast IMPRESSION: Mild cortical atrophy for stated age. No mass or acute bleed.. If clinical suspicion for acute infarct MRI recommended Electronically Signed: Mark Hough MD at 20:38 EST , Service support ,
[2021-07-18] MEDS: Metoclopramide 10 MG/2 ML Vial IV (21:38)
[2021-07-18] MEDS: DiphenhydrAMINE 50 MG/ML Syringe 25 MG IV (21:38)
[2021-07-18] MEDS: Ketorolac 30 MG/ML Syringe IV (21:38)
[2021-07-18] MEDS: LORazepam 1 MG Tablet PO (21:38)
[2021-07-18] MEDS: MethylPREDNISolone 125 MG/2 ML Vial IV (21:57)
[2021-07-18 22:29] VITALS: BP 114/68; PULSE 72; RESP 14; O2SAT 99
== END 2021-07-18 22:31 | disposition home or self-care (01) ==
PROVIDERS: Emergency Provider Emergency Medicine; PCP Nurse Practitioner Primary Care
DX: R07.9 Chest pain, unspecified (principal); R51.9 Headache, unspecified; E66.9 Obesity, unspecified; Z68.44 Body mass index [BMI] 60.0-69.9, adult; M79.7 Fibromyalgia; K76.0 Fatty (change of) liver, not elsewhere classified; I10 Essential (primary) hypertension; F41.9 Anxiety disorder, unspecified; F32.A Depression, unspecified; E11.9 Type 2 diabetes mellitus without complications; K21.9 Gastro-esophageal reflux disease without esophagitis; E07.9 Disorder of thyroid, unspecified; G56.03 Carpal tunnel syndrome, bilateral upper limbs; M32.9 Systemic lupus erythematosus, unspecified; Z79.4 Long term (current) use of insulin; Z79.899 Other long term (current) drug therapy
CPT/HCPCS: 70450; 71275; 80048; 80076; 83690; 84484; 85025; 93005; 96374; 96375; 96376; 99285; J7030; Q9967; A4216; J2405

== ENCOUNTER 2021-11-29 10:31 | Outpatient (CLI) | payer MEDICAID, SELFPAY ==
--- NOTE | 2021-11-29 10:35 | ART_ITS ---
Reason For Study: PVD, Claudication Procedure A bilateral lower extremity continuous wave Doppler with analog waveform analysis,segmental pressures,and ankle brachial indexes without exercise. Left Segmental Pressures Left brachial= 140mmHg. Left posterior tibial artery = 140mmHg. Left dorsalis pedis artery = 154mmHg. Left digit = 136 mmHg. The left dorsalis pedis waveforms are triphasic. The left posterior tibial artery waveforms are triphasic. Right Segmental Pressures Right brachial= 143mmHg. Right posterior tibial artery = 138mmHg. Right dorsalis pedis artery = 144mmHg. Right digit = 92 mmHg. The right dorsalis pedis waveforms are triphasic. The right posterior tibial artery waveforms are triphasic. Indices The right ankle brachial index by the dorsalis pedis is 1.01. The right ankle brachial index by the posterior tibial artery is 0.97. The right digital-brachial index is 0.64. The left ankle brachial index by the dorsalis pedis is 1.08. The left ankle brachial index by the posterior tibial artery is 0.98. The left digital-brachial index is 0.95. VL/Lower Ext Art Exam w/o Exercis Interpretation Summary Triphasic Doppler waveforms are noted at ankle level bilaterally. Pulse-volume recordings appear satisfactory at calf and ankle level bilaterally, but diminished at digital lev el bilaterally. Resting ankle-brachial indices are normal bilaterally. The right digital-brachi al index is mildly diminished. The left digital-brachial index is normal. Arterial flow appears normal at ankle level bilaterally, and at digital level o n the left. There is evidence of mild arterial occlusive disease at digital level on the right. Ordering Physician: Ginette Nolan Referring Physician: Lissett Begum Performed By: Mily Grubbs RVT
== END 2021-11-29 23:59 | disposition home or self-care (01) ==
LOC: CVS 10:31
PROVIDERS: PCP Nurse Practitioner Primary Care; Visit Provider Podiatrist
DX: I73.9 Peripheral vascular disease, unspecified (principal); M79.671 Pain in right foot
CPT/HCPCS: 93923

== ENCOUNTER 2021-12-08 11:54 | Emergency (ER) | payer MEDICAID, SELFPAY ==
[2021-12-08 11:54] VITALS: BP 130/90; PULSE 108; RESP 20; TEMP 36.6; O2SAT 96; BMI 56.0
[2021-12-08 12:01] VITALS: O2SAT 100
--- NOTE | 2021-12-08 12:18 | CT_ITS ---
STUDY: CT MAXILLOFACIAL SINUSES REASON FOR EXAM: Female, 46 years old. cold sx, congestion, sinus pain, fevers RADIATION DOSAGE (If Supplied By Facility): CTDIvol = ( 25.01 ) mGy, DLP = ( 386.07 ) mGycm TECHNIQUE: The patient was scanned in a multi detector CT scanner. High resolution axial imaging was performed without the administration of intravenous contrast material. Sagittal and coronal images were reconstructed. Individualized dose optimization techniques were used for this CT. COMPARISON: None. FINDINGS: FRONTAL SINUSES: Normal aeration, without mucosal inflammatory disease. ETHMOIDAL SINUSES: Normal aeration, without mucosal inflammatory disease. MAXILLARY SINUSES: Normal aeration, without mucosal inflammatory disease. SPHENOIDAL SINUSES: Opacification the right sphenoid sinus consistent with sinusitis. Prior sinus surgery with large windows of the medial wall the maxillary sinuses with the resection of the middle turbinates bilaterally. Normal bilateral inferior turbinates. Normal midline nasal septum. There is patency of the bilateral nasal airways. The visualized osseous structures are normal. The visualized bilateral orbital contents are normal. CT/Sinus/Facial Bone IMPRESSION: Prior sinus surgery with right sphenoid sinusitis. Electronically Signed: Devonte Luna MD at 13:20 EDT ,
--- NOTE | 2021-12-08 12:19 | EDS_ITS ---
HPI HPI - URI History of Present Illness Chief Complaint: Cough Informant: patient Onset/Context/Timing Onset: Weeks (2) Context: Gradual Onset Timing: Continuous Quality: Occ productive cough, green/yellow Location: Chest Current Severity: Moderate Maximum Severity: Moderate Worsened by: - (Coughing) Relieved by: - (Nothing despite taking multiple combination [id number] cold and flu medications) Associated Symptoms Associated Symptoms: Positive for Nasal Congestion, Sinus Pressure and Productive Cough; Negative for Nausea, Vomiting, Diarrhea and Shortness of Breath Narrative Narrative: Patient states after multiple grandchildren sick contacts with upper respiratory tract infections, she developed it, and now has had a for 2 weeks. She states all of the [id number] medications she is taking are not helping at all. She states she feels like she has a sinus infection because she has had a lot of nasal congestion and needs an antibiotic for it. She states one of the grandchildren was diagnosed with the flu. [facility] ED Constitutional Constitutional ED: Reports fatigue, fever(s) and malaise ENT ENT ED: Reports nasal congestion, rhinorrhea, sinus pain and sore throat Cardiovascular Cardiovascular: Reports other Details: Bilateral rib/chest wall soreness from coughing ; Denies palpitations Respiratory/Chest Respiratory/Chest: Reports cough; Denies dyspnea Gastrointestinal Gastrointestinal: Denies abdominal pain, diarrhea, nausea or vomiting Genitourinary Genitourinary ED: Denies dysuria or hematuria Musculoskeletal Musculoskeletal: Denies myalgias or neck pain Integumentary Denies abscess or rash Neurologic Neurologic: Denies headache(s), paresthesias or weakness Psychiatric Psychiatric: Denies depression or suicidal thoughts Endocrine Endocrinology: Denies polydipsia or polyuria [facility] Medical History Anxiety and depression Carpal tunnel syndrome Diabetes type 2, uncontrolled Fatty liver Fibromyalgia GERD (gastroesophageal reflux disease) HTN (hypertension) Lupus Seasonal allergies Thyroid disease Home Medications oxybutynin chloride 5 mg tablet 5 mg PO TID 10/15/17 [History Last Taken 01/09/21] tizanidine 4 mg PO TID 01/18/18 [History Last Taken 01/09/21] venlafaxine 150 mg capsule,extended release 24 hr 150 mg PO BID cap 04/06/18 [History Last Taken 01/09/21] topiramate 100 mg PO BID tablet 05/01/18 [Rx Last Taken 01/09/21] glimepiride 4 mg PO BID 11/06/18 [History Last Taken 01/09/21] Trulicity 3 mg SQ GOMEZ 01/22/19 [History Last Taken 01/07/21] atorvastatin 40 mg PO DAILY 06/01/20 [History Last Taken 01/09/21] levothyroxine 25 mcg PO DAILY 06/01/20 [History Last Taken 01/09/21] levothyroxine 300 mcg PO DAILY 06/01/20 [History Last Taken 01/09/21] lisinopril 10 mg PO DAILY 06/01/20 [History Last Taken 01/09/21] metoprolol succinate 50 mg PO BID 06/01/20 [History Last Taken 01/09/21] zolpidem 10 mg PO QHS 06/01/20 [History Last Taken 01/09/21] insulin glargine 50 unit SUBCUT BID 01/10/21 [History Last Taken Unknown] insulin lispro 25 u TIDCM 01/10/21 [History Last Taken Unknown] ondansetron 8 mg PO Q8H PRN #15 tab 01/11/21 [Rx Last Taken Unknown] buprenorphine 2 patch TOPICAL TH 04/10/21 [History Last Taken Unknown] gabapentin 100 mg PO BID 04/10/21 [History Last Taken Unknown] linaclotide [Linzess] 145 mcg PO DAILY 04/10/21 [History Last Taken Unknown] promethazine 25 mg PO Q8H PRN 04/10/21 [History Last Taken Unknown] promethazine 25 mg PO Q6H PRN PRN #10 tablet 04/11/21 [Rx Last Taken Unknown] lorazepam 0.5 mg PO TID #10 tab 05/12/21 [Rx Last Taken Unknown] oxycodone-acetaminophen 1 tab PO Q6H PRN PRN 3 Days #12 tablet 05/12/21 [Rx Last Taken Unknown] promethazine [Promethegan] 25 mg FL Q6H PRN PRN #12 ea 05/12/21 [Rx Last Taken Unknown] amoxicillin-pot clavulanate 875 mg PO Q12H #20 tablet 12/08/21 [Rx Last Taken Unknown] codeine-guaifenesin [Guaiatussin AC] 10 ml PO Q6H PRN #120 ml 12/08/21 [Rx Last Taken Unknown] Allergy/AdvReac Type Severity Reaction Status Date / Time hydroxyzine [From Atarax] Allergy Hives Verified 12/08/21 11:57 Sulfa (Sulfonamide Allergy Hives Verified 12/08/21 11:57 Antibiotics) duloxetine [From Cymbalta] AdvReac Other Verified 12/08/21 11:57 raspberry AdvReac Other Verified 12/08/21 11:57 Family History Mother Arthritis Breast cancer Heart disease Father Heart disease Alcohol abuse Blood clot in vein Sister Anxiety Depression Brother Anxiety Surgical History cervical lymph node excision H/O hernia repair H/O sinus surgery H/O thyroidectomy H/O: History of incision and drainage Hx of appendectomy Hx of cholecystectomy l toe surgery S/P bronchoscopy S/P RUTH (total abdominal hysterectomy) Social History household members: spouse Smoking Status: Former smoker alcohol intake: current alcohol intake frequency: holidays/special occasions only substance use type: does not use EXAM Physical Exam Const Vital Signs: 12/08/21 11:54 12/08/21 12:01 12/08/21 13:21 Temperature 97.8 F 99.3 F H Temperature Source Temporal Temporal Pulse Rate 108 H 100 Respiratory Rate 20 H 17 Respiratory Effort Normal Non-Labored Blood Pressure 130/90 H 133/79 H Blood Pressure Mean 103 97 Pulse Ox 96 94 Oxygen Delivery Method Room Air Room Air Room Air Positive well nourished and well developed General Appearance ED: well developed and NAD Nutritional Appearance: morbidly obese HEENT Reports EAC's normal, TM's normal bilaterally and moist mucous membranes HEENT Narrative: Mild diffuse sinus tenderness. No swelling. No nasal turbinate edema or purulent discharge. normocephalic and atraumatic Mouth ED: Yes lips normal, Yes tongue normal and No trismus Mouth: lips normal, tongue normal, No thrush and No trismus Throat: posterior oropharynx normal, tonsils normal and uvula midline; Negative for posterior oropharynx abnormal Eyes PERRL and EOMs intact bilaterally Neck no lymphadenopathy, supple and no meningeal signs Resp normal respiratory effort and clear to auscultation bilaterally Cardio no murmurs Rate: regular rate Rhythm: regular rhythm Neuro oriented x3, CN's II-XII intact bilaterally and no sensory deficits noted Sensorium / Orientation: alert Motor Exam: strength 5/5 throughout Skin Lesions: no lesions Rashes: no rashes MDM MDM MDM Narrative Medical decision making narrative: COVID and influenza negative. I did a CT of her sinuses, it was after this that I learned she had sinus surgery in the past because of recurrent sinusitis, but she does not have facial sinusitis, it appears that she has right sphenoidal sinusitis for which Augmentin is reasonable. She is also asking something with codeine for the cough because she is having trouble sleeping at night so we will give her a short prescription for Robitussin-AC as well. I advised her I think the rest of this is all viral in etiology, and the sinusitis is secondary, so not to expect her cough to necessarily be resolved with the antibiotic she understands this. Radiography Diagnostic Testing: Clinical Impression(s) from Imaging Studies Facial/Sinus 12/08/21 12:18 IMPRESSION: Prior sinus surgery with right sphenoid sinusitis. Electronically Signed: Devonte Luna MD at 13:20 EDT , Discharge Plan Triage Chief Complaint: Cough ED Provider: Jeremy Vazquez Dx/Rx/DC Orders Clinical Impression: Acute bronchitis, viral, Acute sphenoidal sinusitis Instructions: Acute Bronchitis Prescriptions: New amoxicillin-pot clavulanate [amoxicillin-pot clavulanate] 875 MG tablet 875 mg PO Q12H Qty: 20 RF: 0 codeine-guaifenesin [Guaiatussin AC] 10-100 mg/5 mL liquid 10 ml PO Q6H PRN (Reason: cough) Qty: 120 RF: 0 No Action oxybutynin chloride 5 mg tablet 5 mg PO TID RF: 0 venlafaxine 150 mg capsule,extended release 24hr 150 mg PO BID RF: 0 tizanidine 4 MG tablet 4 mg PO TID RF: 0 topiramate 100 MG tablet 100 mg PO BID RF: 0 glimepiride 2 MG tablet 4 mg PO BID RF: 0 Trulicity 1.5 MG/0.5 ML pen injector 3 mg SQ GOMEZ RF: 0 atorvastatin 40 MG tablet 40 mg PO DAILY RF: 0 levothyroxine 300 MCG tablet 300 mcg PO DAILY RF: 0 levothyroxine 25 MCG tablet 25 mcg PO DAILY RF: 0 lisinopril 5 MG tablet 10 mg PO DAILY RF: 0 zolpidem 10 MG tablet 10 mg PO QHS RF: 0 metoprolol succinate 50 MG tablet extended release 24 hr 50 mg PO BID RF: 0 insulin glargine 100 unit/mL (3 mL) Insulin Pen 50 unit SUBCUT BID RF: 0 insulin lispro 25 u TIDCM RF: 0 ondansetron 8 mg tablet,disintegrating 8 mg PO Q8H PRN (Reason: nausea and vomiting) Qty: 15 RF: 0 promethazine 25 mg tablet 25 mg PO Q8H PRN (Reason: Nausea And Vomiting) RF: 0 gabapentin 300 mg capsule 100 mg PO BID RF: 0 buprenorphine 10 mcg/hour patch weekly 2 patch topical TH RF: 0 Linzess 145 mcg capsule 145 mcg PO DAILY RF: 0 promethazine [promethazine] 25 MG tablet 25 mg PO Q6H PRN PRN (Reason: Nausea) Qty: 10 RF: 0 oxycodone-acetaminophen [oxycodone-acetaminophen] 1 TABLET tablet 1 tab PO Q6H PRN PRN (Reason: Pain) 3 Days Qty: 12 RF: 0 lorazepam [lorazepam] 0.5 MG tablet 0.5 mg PO TID Qty: 10 RF: 0 promethazine [Promethegan] 25 MG suppository 25 mg FL Q6H PRN PRN (Reason: Nausea) Qty: 12 RF: 0 Primary Care Provider: Care Physician,No Primary Referrals: Care Physician,No Primary [Primary Care Provider] - Doctor,Your [STAFF PHYSICIAN] - 10-14 Days if not better Disposition Disposition: Home, Self Care
[2021-12-08 13:21] VITALS: BP 133/79; PULSE 100; RESP 17; TEMP 37.4; O2SAT 94
[2021-12-08 14:00] VITALS: BP 119/68; PULSE 102; RESP 17
== END 2021-12-08 14:01 | disposition home or self-care (01) ==
PROVIDERS: Emergency Provider Emergency Medicine; Visit Provider Emergency Medicine
DX: J20.9 Acute bronchitis, unspecified (principal); M32.9 Systemic lupus erythematosus, unspecified; E66.01 Morbid (severe) obesity due to excess calories; Z68.43 Body mass index [BMI] 50.0-59.9, adult; E11.9 Type 2 diabetes mellitus without complications; Z79.4 Long term (current) use of insulin; J01.30 Acute sphenoidal sinusitis, unspecified; Z87.891 Personal history of nicotine dependence; F41.9 Anxiety disorder, unspecified; F32.A Depression, unspecified; K76.0 Fatty (change of) liver, not elsewhere classified; M79.7 Fibromyalgia; I10 Essential (primary) hypertension; E07.9 Disorder of thyroid, unspecified; Z79.899 Other long term (current) drug therapy
CPT/HCPCS: 70486; 87428; 99282

== ENCOUNTER 2022-04-14 19:16 | Emergency (ER) | payer MEDICAID, SELFPAY ==
[2022-04-14 19:18] VITALS: BP 115/74; PULSE 112; RESP 18; TEMP 37.2; O2SAT 97; BMI 53.6
--- NOTE | 2022-04-14 19:50 | EDS_ITS ---
HPI HPI - GI History of Present Illness Chief Complaint: Wound Check Narrative Narrative: Patient presents from [facility] where she has been for the last 3 days. She and her relate history that back in February she was seen at [facility]. They removed a large amount of her small intestine secondary to it twisting and her states that she had gut. She had a wound VAC placed. She went to [facility] upon discharge from [facility], and is now at [facility]. She states that her wound VAC is inoperable at that facility and she is having increased pain. They think that the infection is going inward because she is having diarrhea and a large amount of pain. No fevers or chills. Past medical history does include hypertension, diabetes, chronic pain syndrome, and morbid obesity. She presents because they are unable to operate her wound VAC and she feels that fluid is accumulating inside her abdomen since they are unable to have the wound VAC operating. [facility] Medical History Anxiety and depression Carpal tunnel syndrome Diabetes type 2, uncontrolled Fatty liver Fibromyalgia GERD (gastroesophageal reflux disease) HTN (hypertension) Lupus Seasonal allergies Thyroid disease Home Medications aluminum-magnesium hydroxide 225 mg-200 mg/5 mL oral suspension 30 ml PO Q4H PRN Indigestion 04/14/22 [History Last Taken Unknown] amitriptyline 75 mg tablet 75 mg PO QHS 04/14/22 [History Last Taken Unknown] bupropion HCl 150 mg 24 hr tablet, extended release 150 mg PO DAILY 04/14/22 [History Last Taken Unknown] famotidine 20 mg tablet 20 mg PO QHS 04/14/22 [History Last Taken Unknown] gabapentin 100 mg tablet 200 mg PO TID 04/14/22 [History Last Taken Unknown] hydromorphone 4 mg tablet 4 mg PO Q4H PRN Pain 04/14/22 [History Last Taken Unknown] insulin glargine 100 unit/mL (3 mL) subcutaneous pen (Lantus Solostar U-100 Insulin) 15 unit subcut QHS 04/14/22 [History Last Taken Unknown] levothyroxine 300 mcg tablet 300 mcg PO DAILY 04/14/22 [History Last Taken Unknown] loperamide 2 mg tablet 2 mg PO Q2H PRN Diarrhea 04/14/22 [History Last Taken Unknown] magnesium oxide 400 mg PO TID 04/14/22 [History Last Taken Unknown] mirtazapine 15 mg tablet 15 mg PO QHS 04/14/22 [History Last Taken Unknown] multivitamin 1 tab PO DAILY 04/14/22 [History Last Taken Unknown] oxycodone 40 mg tablet,extended release,12 hr 40 mg PO Q8H PRN Pain 04/14/22 [History Last Taken Unknown] tizanidine 4 mg tablet 4 mg PO TID 04/14/22 [History Last Taken Unknown] Allergy/AdvReac Type Severity Reaction Status Date / Time cephalexin Allergy Other Verified 04/14/22 19:17 hydroxyzine [From Atarax] Allergy Hives Verified 12/08/21 11:57 oxymetazoline Allergy NEEDS Verified 04/14/22 19:17 FOLLOW-UP Sulfa (Sulfonamide Allergy Hives Verified 12/08/21 11:57 Antibiotics) sulfadiazine Allergy NEEDS Verified 04/14/22 19:17 FOLLOW-UP duloxetine [From Cymbalta] AdvReac Other Verified 12/08/21 11:57 raspberry AdvReac Other Verified 12/08/21 11:57 Family History Mother Arthritis Breast cancer Heart disease Father Heart disease Alcohol abuse Blood clot in vein Sister Anxiety Depression Brother Anxiety Surgical History cervical lymph node excision H/O hernia repair H/O sinus surgery H/O thyroidectomy H/O: History of incision and drainage Hx of appendectomy Hx of cholecystectomy l toe surgery S/P bronchoscopy S/P RUTH (total abdominal hysterectomy) Social History household members: spouse Smoking Status: Former smoker alcohol intake: current alcohol intake frequency: holidays/special occasions only substance use type: does not use ROS ROS ED ROS Narrative Constitutional: No fever, no chills. HEENT: No sore throat. No neck pain. No loss of vision. No rhinorrhea. Cardiovascular: No chest pain. No palpitations. No pedal edema. Respiratory: No cough, no shortness of breath. Abdominal: Abdominal pain in area of wound VAC. No nausea. No vomiting. Positive diarrhea. Genitourinary: No dysuria. No hematuria. Musculoskeletal: No myalgias. No arthralgias. Neurologic: No headaches. No dizziness. No lightheadedness. Skin: No rash. No change in color. Psychiatric: No depression. No anxiety. EXAM Physical Exam Narrative Exam Narrative: Afebrile. Vital signs noted. HEENT: Normocephalic. Atraumatic. PERRL, EOMI. Neck soft and supple. No point tenderness or step off. Cardiovascular: Regular rate and rhythm. No murmurs, rubs, or gallops appreciated. Respiratory: No tachypnea. Lungs clear to auscultation bilaterally. Gastrointestinal: Abdomen soft, with a large pannus secondary to morbid obesity. Periumbilical wound VAC in place without surrounding erythema or fluctuance. With normoactive bowel sounds. No rebound or guarding. Neurological: Awake. Alert. Nonfocal, nonlateralizing. Skin: No rash. Normal color. No pallor. Musculoskeletal: No pedal edema. Full range of motion extremities. Const Vital Signs: 04/14/22 19:18 Temperature 98.9 F Temperature Source Oral Pulse Rate 112 H Respiratory Rate 18 Blood Pressure 115/74 Blood Pressure Mean 87 Pulse Ox 97 Oxygen Delivery Method Room Air MDM MDM MDM Narrative Medical decision making narrative: Patient administered morphine for analgesia. CBC, CMP, and lactic acid were obtained along with CT imaging of the abdomen and pelvis. There has been significant delay as IV access and blood work was unable to be obtained both by RNs and laboratory. I change the analgesics to intramuscular injection, and additionally changed the CT to without contrast. Of significance is that reportedly according to the the wound VAC is not working well. She is spent the last 3 days hooked up to a small portable wound VAC machine but there has been no fluid that has been extracted from her wound VAC. She feels the fluid building up inside her abdomen. They state that the wound VAC is awaked and she was unhooked today and sent in without the machinery. Further attempts at obtaining blood work are being made. She has not received her CT scan. I discussed the patient with the [facility] transfer line at the 's request as time may be of importance since she has been unhooked from the wound VAC machine and there has been no suction. At this point in time, her disposition is pending. Patient will be signed out to the oncoming physician, to ensure transfer. Patient refuses for IV attempts, but reportedly blood work has been obtained. I discussed patient with the transfer line and Dr. Arianna Velasquez has accepted her as an ED to ED transfer for further evaluation, blood work, and imaging. I then spoke with Dr. Zayda Wolf in the emergency department who is aware of the ED to ED transfer. Disposition is transferred in stable condition. Discharge Plan Triage Chief Complaint: Wound Check ED Provider: Cecilio Landon Dx/Rx/DC Orders Clinical Impression: Morbid obesity, Encounter for management of wound VAC, Abdominal pain Prescriptions: No Action multivitamin Tablet 1 tab PO DAILY amitriptyline 75 mg Tablet 75 mg PO QHS tizanidine 4 mg Tablet 4 mg PO TID levothyroxine 300 mcg Tablet 300 mcg PO DAILY loperamide 2 mg Tablet 2 mg PO Q2H PRN (Reason: Diarrhea) Rx Instructions: administer after each loose stool until symptoms controlled; do not exceed 8 mg per 24 hrs oxycodone 40 mg Tablet Extended Release 12 Hr 40 mg PO Q8H PRN (Reason: Pain) famotidine 20 mg Tablet 20 mg PO QHS aluminum-magnesium hydroxide 225-200 mg/5 mL Suspension 30 ml PO Q4H PRN (Reason: Indigestion) mirtazapine 15 mg Tablet 15 mg PO QHS hydromorphone 4 mg Tablet 4 mg PO Q4H PRN (Reason: Pain) bupropion HCl 150 mg Tablet Extended Release 24 Hr 150 mg PO DAILY gabapentin 100 mg Tablet 200 mg PO TID insulin glargine [Lantus Solostar U-100 Insulin] 100 unit/mL (3 mL) Insulin Pen 15 unit SUBCUT QHS magnesium oxide 400 mg magnesium Capsule 400 mg PO TID Primary Care Provider: Yuly Ramirez NP Referrals: Care Physician,No Primary [Non-Staff] - Disposition Disposition: Acute Care Hospital Discharge Location: [facility]
[2022-04-14] MEDS: Morphine 4 MG/ML Syringe IM ×2 (20:57→22:47)
--- NOTE | 2022-04-14 21:02 | NURSING ---
[address] IV TWICE WITH ULTRASOUND NOT SUCCESSFUL. LAB TO ATTEMPT STRAIGHT STICK. UPDATED, ORDERS CHANGED TO IM MORPHINE AND CT WITHOUT CONTRAST.
[2022-04-14 22:00] VITALS: BP 116/74; PULSE 74; RESP 18; TEMP 36.7; O2SAT 96
--- NOTE | 2022-04-14 22:02 | NURSING ---
BLOOD WORK COLLECTED. PT TRANSFERRING TO [facility] ED. PER DOCTOR [facility] DOCTOR WANTS TO COMPLETE CT AT THEIR FACILITY.
--- NOTE | 2022-04-14 22:12 | NURSING ---
REPORT CALLED TO [facility] ED SPOKE WITH JENNIFER HAZEL.
[2022-04-14 22:17] LABS: Absolute Lymphocyte Count 2.77 X10^3/uL (0.83-4.51); Basophil# 0.06 X10^3/uL; Basophil% 0.7 % (0-1); Eosinophil# 0.22 X10^3/uL; Eosinophils% 2.6 % (0-5); Hematocrit 38.2 % (37-47); Hemoglobin 12.3 g/dL (12.0-15.0); Lymphocyte # 2.77 X10^3/ul (0.83-4.51); Lymphocyte % 32.2 % (19-41); Mean Corp Hgb Conc 32.2 g/dL (32-36); Mean Corpuscular Hgb 31.7 pg (27.0-32.0); Mean Corpuscular Volume 98.5 fL (81-99); Mean Platelet Vol. 10.1 fl (6.2-12.0); Monocyte# 0.51 X10^3/uL; Monocyte% 5.9 % (0-10); NRBC Flagged by Analyzer 0 % (0-5); Neutrophil # 5.02 X10^3/uL (2.7-7.7); Neutrophil % 58.5 % (47-70); Platelet Count 370 K/mm3 (150-450); RBC Distribution Width CV 14.2 % (11.6-14.6); RBC Distribution Width SD 51.3 fl (35.1-43.9); Red Blood Count 3.88 M/mm3 (4.2-5.4); White Blood Count 8.6 K/mm3 (4.4-11.0)
[2022-04-14 22:44] LABS: ALB/GLOB Ratio 0.6 RATIO (0.9-2.4); AST(SGOT) 59 U/L (15-37); Alanine Aminotransfer ALT/SGPT 32 U/L (13-56); Albumin, Serum 2.5 g/dL (3.2-5.0); Alkaline Phosphatase 73 U/L (45-117); Anion Gap 9 (5-15); BUN 6 mg/dL (7-18); BUN/Creat Ratio 10.2 RATIO (10-20); Calcium,Total 9.2 mg/dL (8.5-10.1); Chloride 99 mmol/L (98-107); Creatinine, Serum 0.59 mg/dL (0.55-1.02); EST Glomerular Filtration Rate 116 mL/min (>60); Est Glom Filt Rate - Afr Amer 140 mL/min (>60); Globulin 4.5 g/dL (2.2-4.2); Glucose 176 mg/dL (74-106); Potassium 4.2 mmol/L (3.5-5.1); Sodium Level 134 mmol/L (136-145)
[2022-04-14 22:45] LABS: Lactic Acid 0.3 mmol/L (0.4-1.9)
[2022-04-14] MEDS: Ondansetron ODT 4 MG Tablet PO (22:46)
== END 2022-04-14 23:06 | disposition short-term general hospital (02) ==
PROVIDERS: Emergency Provider Emergency Medicine; PCP Registered Nurse; Visit Provider Emergency Medicine
DX: R10.9 Unspecified abdominal pain (principal); M32.9 Systemic lupus erythematosus, unspecified; E66.01 Morbid (severe) obesity due to excess calories; Z68.43 Body mass index [BMI] 50.0-59.9, adult; E11.9 Type 2 diabetes mellitus without complications; Z79.4 Long term (current) use of insulin; Z48.01 Encounter for change or removal of surgical wound dressing; F41.9 Anxiety disorder, unspecified; F32.A Depression, unspecified; K76.0 Fatty (change of) liver, not elsewhere classified; M79.7 Fibromyalgia; K21.9 Gastro-esophageal reflux disease without esophagitis; I10 Essential (primary) hypertension; E07.9 Disorder of thyroid, unspecified; Z79.899 Other long term (current) drug therapy; G89.4 Chronic pain syndrome
CPT/HCPCS: 80053; 83605; 85025; 87811; 96372; 99285; A4216

== ENCOUNTER → 2022-07-13 | Outpatient (REF) | payer MEDICAID, SELFPAY | END | disposition home or self-care (01) | LOC: OLS.SW 08:20 | PROVIDERS: PCP Registered Nurse; Visit Provider Family Medicine | DX: S31.109A Unspecified open wound of abdominal wall, unspecified quadrant without penetration into peritoneal cavity, initial encounter (principal) | CPT/HCPCS: 87070; 87205 ==

== ENCOUNTER 2022-07-27 13:40 | Inpatient (IN) | payer MEDICAID, SELFPAY ==
[2022-07-27] VITALS (16 sets, daily range): BP systolic 78–119; BP diastolic 42–96; PULSE 60–106; RESP 15–19; TEMP 36.2–37.8; O2SAT 93–100; BMI 43.4; BMI 41.4
--- NOTE | 2022-07-27 14:09 | CT_ITS ---
STUDY: CT Abdomen And Pelvis W/ Contrast Injection 07/27/2022 4:12 PM REASON FOR EXAM: Female, 47 years old. ABDOMINAL PAIN wound infection TECHNIQUE: Transaxial images were obtained without oral contrast, and with IV 100mL Isovue-300 intravenous contrast. Individualized dose optimization techniques were used for this CT. COMPARISON: None. FINDINGS: The visualized lung bases are unremarkable. The visualized portions of the heart are within normal limits. Unremarkable liver. There are surgical clips in the gallbladder fossa consistent with a prior cholecystectomy. Unremarkable spleen. Unremarkable pancreas. Unremarkable bilateral adrenal glands. No acute findings of the right kidney. No acute findings of the left kidney. Unremarkable visualized stomach. Unremarkable small intestine. Right hemicolectomy changes of the colon. There is non-visualization of the appendix. There are no acute findings of the abdominal aorta. Partial collapse of the inferior vena cava suggesting dehydration. Subcentimeter mesenteric lymph nodes. Unremarkable urinary bladder. There is absence of the uterus consistent with a prior hysterectomy. Midline anterior abdominal wall fluid collection with air measuring 45 x 25 x 26 mm. This is concerning for a subcutaneous post operative abscess. Unremarkable osseous structures. CT/Abdomen/Pelvis W IV Cont ONLY IMPRESSION: (NOT LISTED IN ORDER OF SIGNIFICANCE) Partial collapse of the inferior vena cava suggesting dehydration. Midline anterior abdominal wall fluid collection with air measuring 45 x 25 x 26 mm. This is concerning for a subcutaneous post operative abscess. Other findings as above. Electronically Signed: Jesu Mccallum MD at 16:17 EST ,
--- NOTE | 2022-07-27 14:17 | EDS_ITS ---
HPI <Dr. Smith Valladares MD - Last Filed: 07/28/22 13:39> History of Present Illness Chief Complaint: Wound Check Informant: patient and spouse/S.O. Narrative Narrative: Patient presents with abdominal wound. She states she had hernia repair back in August with mesh. In January she had the mesh removed and about 12 inches of her colon removed. This was done by Dr. Hong at [facility]. He last saw her approximately February. Patient evidently had 2 open areas on the abdominal wall. They were on the left and right side of the abdomen. They closed somewhere since February and now I cannot get that answer directly. But she now has an open area in the central area of the abdomen. That has been present approximately 2 or 3 weeks and possibly more. The last 4 days it has turned black on the edges and she has had nausea vomiting and some fevers. She contacted her surgeon again yesterday. He explained that there is not much more he can do and she should go to the ER so she can see wound care for this. She saw private physician at [facility] today who referred her in here because of the appearance of the wound. She denies coughing trouble breathing urinary symptoms. Her only real complaint is the nausea, vomiting fever and the abdominal wound. [facility] <Dr. Smith Valladares MD - Last Filed: 07/28/22 13:39> [facility] Medical History Anxiety and depression Carpal tunnel syndrome Diabetes type 2, uncontrolled Fatty liver Fibromyalgia GERD (gastroesophageal reflux disease) HTN (hypertension) Lupus Open abdominal wall wound Seasonal allergies Thyroid disease Home Medications aluminum-magnesium hydroxide 225 mg-200 mg/5 mL oral suspension 30 ml PO Q4H PRN Indigestion 04/14/22 [History Last Taken Unknown] amitriptyline 75 mg tablet 75 mg PO QHS 04/14/22 [History Last Taken Unknown] bupropion HCl 150 mg 24 hr tablet, extended release 150 mg PO DAILY 04/14/22 [History Last Taken Unknown] famotidine 20 mg tablet 20 mg PO QHS 04/14/22 [History Last Taken Unknown] gabapentin 100 mg tablet 200 mg PO TID 04/14/22 [History Last Taken Unknown] hydromorphone 4 mg tablet 4 mg PO Q4H PRN Pain 04/14/22 [History Last Taken Unknown] insulin glargine 100 unit/mL (3 mL) subcutaneous pen (Lantus Solostar U-100 Insulin) 14 unit subcut QHS 04/14/22 [History Last Taken Unknown] levothyroxine 300 mcg tablet 300 mcg PO DAILY 04/14/22 [History Last Taken Unknown] loperamide 2 mg tablet 2 mg PO Q2H PRN Diarrhea 04/14/22 [History Last Taken Unknown] magnesium oxide 400 mg PO TID 04/14/22 [History Last Taken Unknown] mirtazapine 15 mg tablet 15 mg PO QHS 04/14/22 [History Last Taken Unknown] multivitamin 1 tab PO DAILY 04/14/22 [History Last Taken Unknown] oxycodone 40 mg tablet,extended release,12 hr 40 mg PO Q8H PRN Pain 04/14/22 [History Last Taken Unknown] tizanidine 4 mg tablet 4 mg PO TID 04/14/22 [History Last Taken Unknown] acetaminophen 325 mg capsule (Tylenol) 650 mg PO Q6H PRN Breakthrough Pain, Mild 07/27/22 [History Last Taken Unknown] albuterol sulfate 2.5 mg/3 mL (0.083 %) solution for nebulization 2.5 mg inhalation Q4H PRN Cough 07/27/22 [History Last Taken Unknown] atorvastatin 40 mg tablet 40 mg PO QHS 07/27/22 [History Last Taken Unknown] fluticasone propionate 220 mcg/actuation HFA aerosol inhaler 2 puff inhalation BID 07/27/22 [History Last Taken Unknown] lorazepam 0.5 mg tablet 0.5 mg PO TID PRN Anxiety 07/27/22 [History Last Taken Unknown] topiramate 100 mg tablet (Topamax) 100 mg PO QHS 07/27/22 [History Last Taken Unknown] venlafaxine 150 mg capsule,extended release 24 hr (Effexor XR) 150 mg PO DAILY 07/27/22 [History Last Taken Unknown] zolpidem 10 mg tablet (Ambien) 10 mg PO QHS PRN Insomnia 07/27/22 [History Last Taken Unknown] Allergy/AdvReac Type Severity Reaction Status Date / Time cephalexin Allergy Other Verified 04/14/22 19:17 hydroxyzine [From Atarax] Allergy Hives Verified 12/08/21 11:57 oxymetazoline Allergy NEEDS Verified 04/14/22 19:17 FOLLOW-UP Sulfa (Sulfonamide Allergy Hives Verified 12/08/21 11:57 Antibiotics) sulfadiazine Allergy NEEDS Verified 04/14/22 19:17 FOLLOW-UP duloxetine [From Cymbalta] AdvReac Other Verified 12/08/21 11:57 raspberry AdvReac Other Verified 12/08/21 11:57 Family History Mother Arthritis Breast cancer Heart disease Father Heart disease Alcohol abuse Blood clot in vein Sister Anxiety Depression Brother Anxiety Surgical History cervical lymph node excision H/O hernia repair H/O sinus surgery H/O thyroidectomy H/O: History of incision and drainage Hx of appendectomy Hx of cholecystectomy l toe surgery S/P bronchoscopy S/P RUTH (total abdominal hysterectomy) Social History household members: spouse Smoking Status: Former smoker alcohol intake: current alcohol intake frequency: holidays/special occasions only substance use type: does not use ROS <Dr. Smith Valladares MD - Last Filed: 07/28/22 13:39> ROS ED Constitutional Constitutional ED: Reports chills, fever(s) and subjective Eyes Eyes: Denies change in vision ENT ENT ED: Denies rhinorrhea Cardiovascular Cardiovascular: Denies chest pain or palpitations Respiratory/Chest Respiratory/Chest: Denies cough or dyspnea Gastrointestinal Gastrointestinal: Reports abdominal pain, nausea and vomiting; Denies constipation or diarrhea Genitourinary Genitourinary ED: Denies dysuria Musculoskeletal Musculoskeletal: Denies myalgias Integumentary Reports other Details: Abdominal wound approximately 3 x 5 cm see history of present illness Neurologic Neurologic: Denies headache(s) Endocrine Endocrinology: Denies polydipsia or polyuria Hematologic/Lymphatic Hematologic/Lymphatic: Denies easy bleeding or easy bruising Allergic/Immunologic Allergic/Immunologic ED: Denies urticaria EXAM <Dr. Smith Valladares MD - Last Filed: 07/28/22 13:39> Physical Exam Const Vital Signs: 07/27/22 13:41 07/27/22 13:44 07/27/22 13:44 Temperature 100 F H 100.0 F H 100.0 F H Temperature Source Oral Oral Temporal Pulse Rate 82 60 80 Respiratory Rate 15 17 17 Blood Pressure 107/76 107/76 107/76 Blood Pressure Mean 86 86 86 Pulse Ox 93 93 95 Oxygen Delivery Method Room Air Room Air Room Air 07/27/22 15:11 07/27/22 16:21 07/27/22 16:21 Temperature 99.9 F H 98.9 F Temperature Source Oral Temporal Pulse Rate 66 77 71 Respiratory Rate 17 17 16 Blood Pressure 104/96 H 108/52 L 108/52 L Blood Pressure Mean 98 70 70 Pulse Ox 99 99 99 Oxygen Delivery Method Room Air Room Air Room Air 07/27/22 17:27 07/27/22 17:48 Temperature 100.0 F H 98.2 F Temperature Source Temporal Temporal Pulse Rate 82 80 Respiratory Rate 15 19 H Blood Pressure 86/79 L 90/64 Blood Pressure Mean 81 72 Pulse Ox 99 99 Oxygen Delivery Method Room Air Room Air Positive well nourished, well developed and obese General Appearance ED: well developed and NAD Nutritional Appearance: obese HEENT Reports moist mucous membranes Eyes General Eye ED: Negative for scleral icterus Resp normal respiratory effort and clear to auscultation bilaterally Cardio regular rate and regular rhythm GI GI Narrative: Abdomen is obese. Bowel sounds are normal. There are some bruised areas on the anterior abdomen. There is a little open area about 3 or 4 x 5 cm in the mid abdomen. The edges are dark. There is some mix dark fluid at the base. I do not note an odor. But there is tenderness around there and tenderness mostly above it. No rebound or guarding. Narrative: Patient does seem to have some bruising on her flanks little bit more on the right than the left. These have evidently been there for a week or 2. Extremity Extremity Narrative: Large extremities but not tender Neuro oriented x3 Neuro Narrative: Patient is not lethargic or confused Sensorium / Orientation: Negative for lethargic or stuporous Psych mental status grossly normal Skin Skin Narrative: Abdominal wound as above. <Dr. Aldo Wilson MD - Last Filed: 07/27/22 17:46> Physical Exam Const Vital Signs: 07/27/22 13:41 07/27/22 13:44 07/27/22 13:44 Temperature 100 F H 100.0 F H 100.0 F H Temperature Source Oral Oral Temporal Pulse Rate 82 60 80 Respiratory Rate 15 17 17 Blood Pressure 107/76 107/76 107/76 Blood Pressure Mean 86 86 86 Pulse Ox 93 93 95 Oxygen Delivery Method Room Air Room Air Room Air 07/27/22 15:11 07/27/22 16:21 07/27/22 16:21 Temperature 99.9 F H 98.9 F Temperature Source Oral Temporal Pulse Rate 66 77 71 Respiratory Rate 17 17 16 Blood Pressure 104/96 H 108/52 L 108/52 L Blood Pressure Mean 98 70 70 Pulse Ox 99 99 99 Oxygen Delivery Method Room Air Room Air Room Air 07/27/22 17:27 07/27/22 17:48 Temperature 100.0 F H 98.2 F Temperature Source Temporal Temporal Pulse Rate 82 80 Respiratory Rate 15 19 H Blood Pressure 86/79 L 90/64 Blood Pressure Mean 81 72 Pulse Ox 99 99 Oxygen Delivery Method Room Air Room Air MDM <Dr. Smith Valladares MD - Last Filed: 07/28/22 13:39> [facility] MDM Narrative Medical decision making narrative: Wound cultures were obtained by me and will be sent off. Patient's blood work actually shows normal white count hemoglobin and her platelets are normal. Labs show very low potassium and slightly elevated lactate. However, they did have to use a tourniquet on for a while to obtain these and this could have affected her results. Her renal function is still no rmal. I will initiate some potassium. But she is not having cramping or symptoms that are consistent with that level of potassium being true. I will avoid IV because of her smaller IV access and we want to get antibiotics and through that. Glucose is up a little bit at 240. Urine shows greater than 100 white cells positive nitrites leukocyte Estrace and cloudy. This along with fever will be treated. I will use Zosyn. This should cover bribed her range of infectious sources. Cephalexin is listed as an allergy but she denied this. She states she has never had a problem with Keflex or cephalexin. Only sulfa antibiotics. I am pending CAT scan at this time. She just came back from CAT scan as I got in the room to recheck her. Lab Data Attestation: I reviewed the patient's lab results. Labs: Laboratory Results - last 24 hr 07/27/22 07/27/22 07/27/22 15:00 15:00 15:00 WBC 11.0 RBC 4.08 L Hgb 12.9 Hct 38.1 MCV 93.4 MCH 31.6 MCHC 33.9 RDW Std Deviation 49.5 H RDW Coeff of Yajaira 14.3 Plt Count 353 MPV 10.1 Immature Gran % (Auto) 0.600 Neut % (Auto) 73.1 H Lymph % (Auto) 20.1 [place] % (Auto) 4.6 Eos % (Auto) 1.3 Baso % (Auto) 0.3 Absolute Neuts (auto) 8.0 H Absolute Lymphs (auto) 2.21 Nucleated RBC % 0 Sodium 138 Potassium 2.2 L* Chloride 97 L Carbon Dioxide 32.0 Anion Gap 9 BUN 7 Creatinine 0.75 Estim Creat Clear Calc 98.12 Est GFR (MDRD) Af Amer 106 Est GFR (MDRD) Non-Af 88 BUN/Creatinine Ratio 9.4 L Glucose 240 H Lactic Acid 2.1 H* Calcium 7.6 L Magnesium Total Bilirubin 0.50 AST 14 L ALT 14 Alkaline Phosphatase 107 Total Protein 7.0 Albumin 1.7 L Globulin 5.3 H Albumin/Globulin Ratio 0.3 L Urine Color Urine Clarity Urine pH Ur Specific [place] Urine Protein Urine Glucose (UA) Urine Ketones Urine Occult Blood Urine Nitrite Urine Bilirubin Urine Urobilinogen Ur Leukocyte Esterase Urine RBC Urine WBC Ur Squamous Epith Cells Urine Bacteria Urine Mucus 07/27/22 07/27/22 15:00 15:25 WBC RBC Hgb Hct MCV MCH MCHC RDW Std Deviation RDW Coeff of Yjaaira Plt Count MPV Immature Gran % (Auto) Neut % (Auto) Lymph % (Auto) [place] % (Auto) Eos % (Auto) Baso % (Auto) Absolute Neuts (auto) Absolute Lymphs (auto) Nucleated RBC % Sodium Potassium Chloride Carbon Dioxide Anion Gap BUN Creatinine Estim Creat Clear Calc Est GFR (MDRD) Af Amer Est GFR (MDRD) Non-Af BUN/Creatinine Ratio Glucose Lactic Acid Calcium Magnesium 1.5 L Total Bilirubin AST ALT Alkaline Phosphatase Total Protein Albumin Globulin Albumin/Globulin Ratio Urine Color Yellow Urine Clarity Sl. Cloudy Urine pH 7.0 Ur Specific [place] 1.010 Urine Protein 30 H Urine Glucose (UA) Normal Urine Ketones Negative Urine Occult Blood 25 H Urine Nitrite Positive H Urine Bilirubin Negative Urine Urobilinogen Normal Ur Leukocyte Esterase 500 H Urine RBC 0 SEEN Urine WBC >100 SEEN Ur Squamous Epith Cells 0 SEEN Urine Bacteria 3+ Urine Mucus 0 SEEN Radiography Diagnostic Testing: Clinical Impression(s) from Imaging Studies Abdomen/Pelvis CT 07/27/22 14:09 IMPRESSION: (NOT LISTED IN ORDER OF SIGNIFICANCE) Partial collapse of the inferior vena cava suggesting dehydration. Midline anterior abdominal wall fluid collection with air measuring 45 x 25 x 26 mm. This is concerning for a subcutaneous post operative abscess. Other findings as above. Electronically Signed: Jesu Mccallum MD at 16:17 EST , <Dr. Aldo Wilson MD - Last Filed: 07/27/22 17:46> MDM MDM Narrative Medical decision making narrative: Wound cultures were obtained by me and will be sent off. Patient's blood work actually shows normal white count hemoglobin and her platelets are normal. Labs show very low potassium and slightly elevated lactate. However, they did have to use a tourniquet on for a while to obtain these and this could have affected her results. Her renal function is still normal. I will initiate some potassium. But she is not having cramping or symptoms that are consistent with that level of potassium being true. I will avoid IV because of her smaller IV access and we want to get antibiotics and through that. Glucose is up a little bit at 240. Urine shows greater than 100 white cells positive nitrites leukocyte Estrace and cloudy. This along with fever will be treated. I will use Zosyn. This should cover bribed her range of infectious sources. Cephalexin is listed as an allergy but she denied this. She states she has never had a problem with Keflex or cephalexin. Only sulfa antibiotics. I am pending CAT scan at this time. She just came back from CAT scan as I got in the room to recheck her. Dr. Lantigua evaluated patient and talk to the family. We were unable to transfer to [facility] due to the beds are full. She will be admitted here to the hospitalist for UTI and abdominal wound. And consult to Dr. Yumi Lantigua who has talked to the family. Lab Data Labs: Laboratory Results - last 24 hr 07/27/22 07/27/2207/27/22 15:00 15:00 15:00 WBC 11.0 RBC 4.08 L Hgb 12.9 Hct 38.1 MCV 93.4 MCH 31.6 MCHC 33.9 RDW Std Deviation 49.5 H RDW Coeff of Yajaira 14.3 Plt Count 353 MPV 10.1 Immature Gran % (Auto) 0.600 Neut % (Auto) 73.1 H Lymph % (Auto) 20.1 [place] % (Auto) 4.6 Eos % (Auto) 1.3 Baso % (Auto) 0.3 Absolute Neuts (auto) 8.0 H Absolute Lymphs (auto) 2.21 Nucleated RBC % 0 Sodium 138 Potassium 2.2 L* Chloride 97 L Carbon Dioxide 32.0 Anion Gap 9 BUN 7 Creatinine 0.75 Estim Creat Clear Calc 98.12 Est GFR (MDRD) Af Amer 106 Est GFR (MDRD) Non-Af 88 BUN/Creatinine Ratio 9.4 L Glucose 240 H Lactic Acid 2.1 H* Calcium 7.6 L Magnesium Total Bilirubin 0.50 AST 14 L ALT 14 Alkaline Phosphatase 107 Total Protein 7.0 Albumin 1.7 L Globulin 5.3 H Albumin/Globulin Ratio 0.3 L Urine Color Urine Clarity Urine pH Ur Specific [place] Urine Protein Urine Glucose (UA) Urine Ketones Urine Occult Blood Urine Nitrite Urine Bilirubin Urine Urobilinogen Ur Leukocyte Esterase Urine RBC Urine WBC Ur Squamous Epith Cells Urine Bacteria Urine Mucus 07/27/22 07/27/22 15:00 15:25 WBC RBC Hgb Hct MCV MCH MCHC RDW Std Deviation RDW Coeff of Yajaira Plt Count MPV Immature Gran % (Auto) Neut % (Auto) Lymph % (Auto) [place] % (Auto) Eos % (Auto) Baso % (Auto) Absolute Neuts (auto) Absolute Lymphs (auto) Nucleated RBC % Sodium Potassium Chloride Carbon Dioxide Anion Gap BUN Creatinine Estim Creat Clear Calc Est GFR (MDRD) Af Amer Est GFR (MDRD) Non-Af BUN/Creatinine Ratio Glucose Lactic Acid Calcium Magnesium 1.5 L Total Bilirubin AST ALT Alkaline Phosphatase Total Protein Albumin Globulin Albumin/Globulin Ratio Urine Color Yellow Urine Clarity Sl. Cloudy Urine pH 7.0 Ur Specific [place] 1.010 Urine Protein 30 H Urine Glucose (UA) Normal Urine Ketones Negative Urine Occult Blood 25 H Urine Nitrite Positive H Urine Bilirubin Negative Urine Urobilinogen Normal Ur Leukocyte Esterase 500 H Urine RBC 0 SEEN Urine WBC >100 SEEN Ur Squamous Epith Cells 0 SEEN Urine Bacteria 3+ Urine Mucus 0 SEEN Radiography Diagnostic Testing: Clinical Impression(s) from Imaging Studies Abdomen/Pelvis CT 07/27/22 14:09 IMPRESSION: (NOT LISTED IN ORDER OF SIGNIFICANCE) Partial collapse of the inferior vena cava suggesting dehydration. Midline anterior abdominal wall fluid collection with air measuring 45 x 25 x 26 mm. This is concerning for a subcutaneous post operative abscess. Other findings as above. Electronically Signed: Jesu Mccallum MD at 16:17 EST Reading Location ID and State: [facility] / [place] , Service support , Discharge Plan Dx/Rx/DC Orders Clinical Impression: Open abdominal wall wound, Urinary tract infection Disposition Disposition: Acute Care Hospital [facility]
[2022-07-27] MEDS: Morphine 4 MG/ML Syringe IV ×2 (15:08→16:12)
[2022-07-27] MEDS: Ondansetron 4 MG/2 ML Vial IV ×2 (15:09→20:19)
[2022-07-27 15:14] LABS: Absolute Lymphocyte Count 2.21 X10^3/uL (0.83-4.51); Basophil# 0.03 X10^3/uL; Basophil% 0.3 % (0-1); Eosinophil# 0.14 X10^3/uL; Eosinophils% 1.3 % (0-5); Hematocrit 38.1 % (37-47); Hemoglobin 12.9 g/dL (12.0-15.0); Lymphocyte # 2.21 X10^3/ul (0.83-4.51); Lymphocyte % 20.1 % (19-41); Mean Corp Hgb Conc 33.9 g/dL (32-36); Mean Corpuscular Hgb 31.6 pg (27.0-32.0); Mean Corpuscular Volume 93.4 fL (81-99); Mean Platelet Vol. 10.1 fl (6.2-12.0); Monocyte# 0.51 X10^3/uL; Monocyte% 4.6 % (0-10); NRBC Flagged by Analyzer 0 % (0-5); Neutrophil # 8.04 X10^3/uL (2.7-7.7); Neutrophil % 73.1 % (47-70); Platelet Count 353 K/mm3 (150-450); RBC Distribution Width CV 14.3 % (11.6-14.6); RBC Distribution Width SD 49.5 fl (35.1-43.9); Red Blood Count 4.08 M/mm3 (4.2-5.4)
[2022-07-27 15:32] LABS: Mucous, Urine 0 SEEN /hpf (<or=2+); Red Blood Cells-Urine 0 SEEN /hpf (0-5); Squamous Epithelial Cells - UA 0 SEEN /hpf (5-10)
[2022-07-27 15:37] LABS: ALB/GLOB Ratio 0.3 RATIO (0.9-2.4); AST(SGOT) 14 U/L (15-37); Alanine Aminotransfer ALT/SGPT 14 U/L (13-56); Albumin, Serum 1.7 g/dL (3.2-5.0); Alkaline Phosphatase 107 U/L (45-117); Anion Gap 9 (5-15); BUN 7 mg/dL (7-18); BUN/Creat Ratio 9.4 RATIO (10-20); Calcium,Total 7.6 mg/dL (8.5-10.1); Chloride 97 mmol/L (98-107); Creatinine, Serum 0.75 mg/dL (0.55-1.02); EST Glomerular Filtration Rate 88 mL/min (>60); Est Glom Filt Rate - Afr Amer 106 mL/min (>60); Estimated Creatinine Clearance 98.12 ml/min; Globulin 5.3 g/dL (2.2-4.2); Glucose 240 mg/dL (74-106); Potassium 2.2 mmol/L (3.5-5.1); Sodium Level 138 mmol/L (136-145)
[2022-07-27 15:38] LABS: Color, Urine Yellow (Yellow); Glucose, Dipstick Normal (Normal); Ketone-Dipstick Negative (Negative); Leukocyte Esterase-Dipstick 500 /ul (Negative); Nitrite-Dipstick Positive (Negative); Occult Blood-Urine 25 /ul (Negative); Protein-Dipstick 30 mg/dl (Negative); Urine Bilirubin Dipstick Negative (Negative); Urine Clarity Sl. Cloudy (Clear); Urine Urobilinogen Normal (Normal)
[2022-07-27 15:38] LABS: Lactic Acid 2.1 mmol/L (0.4-1.9)
[2022-07-27 15:53] LABS: Bacteria 3+ /hpf (None Seen); White Blood Cells >100 SEEN /hpf (0-5)
[2022-07-27] MEDS: Potassium Chloride Oral Tablet 20 MEQ 40 MEQ PO (16:12)
[2022-07-27] MEDS: 0.9% Normal Saline 1,000 ML 999 ML IV ×5 (16:31→22:23)
[2022-07-27] MEDS: Ondansetron 4 MG/2 ML Vial IM (17:55)
[2022-07-27] MEDS: morphine 8 MG/ML Syringe 6 MG IV (17:55)
[2022-07-27] MEDS: Ceftriaxone 1 GM/50 ML BAG IV (17:58)
--- NOTE | 2022-07-27 18:33 | PCM.HP.STD ---
[facility] - General General Date of Admission: 07/27/22 Date of Service: 07/27/22 Chief Complaint: Abdominal wound HPI Narrative ROMIE JIMENEZ, is a 47 F who presented to the emergency department at [facility] on 07/27/2022 for a wound check as referred by her primary care physician at [facility] today. They were concerned with the appearance of the wound. The patient reports that she has a history of hernia repair in August 2021 at which time mesh was placed. In January 2022 she had the mass removed and approximately 12 inches of her colon removed secondary to colonic ischemia. This was all done by Dr. Hong at [facility]. He evidently last saw her in February at which time she had 2 open areas in the abdominal wall. The progress of these wounds is unclear since that point time but at the time of the presentation the emergency department today she has 1 wound on the left side of the abdomen that she reports developed approximately 2 to 3 weeks ago and has been more concerning over the last 4 days as it had turned black along the edges and she has had associated nausea, vomiting, and some fevers. She contacted her surgeon yesterday and he explained that there is not much more he could do and that she can go to the emergency department for wound care. She reports her T-max at the nursing facility was 100.3. Vital signs upon presentation here demonstrated a temperature of 100 degrees, initial blood pressure was 107/76 however during her hospital course in the emergency department her blood pressure declined as low as 88/42 with a MAP less than 65 despite 1 fluid bolus, her respiratory rate was 19 and her oxygen saturation was 99% on room air. She is mentating appropriately. Her CBC was unremarkable other than a mild neutrophilia with a 73.1% left shift. Her BMP showed marked hypokalemia with a potassium of 2.2 and elevated glucose at 240, an elevated lactate at 2.1 and normal LFTs and renal function. Her urine was suggestive of infection having nitrate and leuk esterase with greater than 100 white cells and 3+ bacteriuria had a CT of her abdomen and pelvis was obtained and showed a midline anterior abdominal wall fluid collection with air that measured 4.5 x 2.5 x 2.6 cm that was concerning for a subcutaneous postoperative abscess. Initially tried to transfer the patient to [facility] since this is where she had all care but they declined the phone call indicating they had no room for any transfers. She was started on antibiotics in the emergency department. I requested blood cultures and urine culture be obtained. General surgery was contacted and indicated they would see the patient in consult. [facility] Medical History Anxiety and depression Carpal tunnel syndrome Diabetes type 2, uncontrolled Fatty liver Fibromyalgia GERD (gastroesophageal reflux disease) HTN (hypertension) Lupus Seasonal allergies Thyroid disease Home Medications aluminum-magnesium hydroxide 225 mg-200 mg/5 mL oral suspension 30 ml PO Q4H PRN Indigestion 04/14/22 [History Last Taken Unknown] amitriptyline 75 mg tablet 75 mg PO QHS 04/14/22 [History Last Taken Unknown] bupropion HCl 150 mg 24 hr tablet, extended release 150 mg PO DAILY 04/14/22 [History Last Taken Unknown] famotidine 20 mg tablet 20 mg PO QHS 04/14/22 [History Last Taken Unknown] gabapentin 100 mg tablet 200 mg PO TID 04/14/22 [History Last Taken Unknown] hydromorphone 4 mg tablet 4 mg PO Q4H PRN Pain 04/14/22 [History Last Taken Unknown] insulin glargine 100 unit/mL (3 mL) subcutaneous pen (Lantus Solostar U-100 Insulin) 14 unit subcut QHS 04/14/22 [History Last Taken Unknown] levothyroxine 300 mcg tablet 300 mcg PO DAILY 04/14/22 [History Last Taken Unknown] loperamide 2 mg tablet 2 mg PO Q2H PRN Diarrhea 04/14/22 [History Last Taken Unknown] magnesium oxide 400 mg PO TID 04/14/22 [History Last Taken Unknown] mirtazapine 15 mg tablet 15 mg PO QHS 04/14/22 [History Last Taken Unknown] multivitamin 1 tab PO DAILY 04/14/22 [History Last Taken Unknown] oxycodone 40 mg tablet,extended release,12 hr 40 mg PO Q8H PRN Pain 04/14/22 [History Last Taken Unknown] tizanidine 4 mg tablet 4 mg PO TID 04/14/22 [History Last Taken Unknown] acetaminophen 325 mg capsule (Tylenol) 650 mg PO Q6H PRN Breakthrough Pain, Mild 07/27/22 [History Last Taken Unknown] albuterol sulfate 2.5 mg/3 mL (0.083 %) solution for nebulization 2.5 mg inhalation Q4H PRN Cough 07/27/22 [History Last Taken Unknown] atorvastatin 40 mg tablet 40 mg PO QHS 07/27/22 [History Last Taken Unknown] fluticasone propionate 220 mcg/actuation HFA aerosol inhaler 2 puff inhalation BID 07/27/22 [History Last Taken Unknown] lorazepam 0.5 mg tablet 0.5 mg PO TID PRN Anxiety 07/27/22 [History Last Taken Unknown] topiramate 100 mg tablet (Topamax) 100 mg PO QHS 07/27/22 [History Last Taken Unknown] venlafaxine 150 mg capsule,extended release 24 hr (Effexor XR) 150 mg PO DAILY 07/27/22 [History Last Taken Unknown] zolpidem 10 mg tablet (Ambien) 10 mg PO QHS PRN Insomnia 07/27/22 [History Last Taken Unknown] Allergy/AdvReac Type Severity Reaction Status Date / Time cephalexin Allergy Other Verified 04/14/22 19:17 hydroxyzine [From Atarax] Allergy Hives Verified 12/08/21 11:57 oxymetazoline Allergy NEEDS Verified 04/14/22 19:17 FOLLOW-UP Sulfa (Sulfonamide Allergy Hives Verified 12/08/21 11:57 Antibiotics) sulfadiazine Allergy NEEDS Verified 04/14/22 19:17 FOLLOW-UP duloxetine [From Cymbalta] AdvReac Other Verified 12/08/21 11:57 raspberry AdvReac Other Verified 12/08/21 11:57 Family History Mother Arthritis Breast cancer Heart disease Father Heart disease Alcohol abuse Blood clot in vein Sister Anxiety Depression Brother Anxiety Surgical History cervical lymph node excision H/O hernia repair H/O sinus surgery H/O thyroidectomy H/O: History of incision and drainage Hx of appendectomy Hx of cholecystectomy l toe surgery S/P bronchoscopy S/P RUTH (total abdominal hysterectomy) Social History household members: spouse Smoking Status: Former smoker alcohol intake: current alcohol intake frequency: holidays/special occasions only substance use type: does not use ROS Constitutional Constitutional: Reports anorexia, fatigue, fever(s), malaise and weakness; Denies change in weight, chills, night sweats or other Eyes Eyes: Denies blurry vision, change in eye color, change in vision, discharge from eye(s), double vision, erythema, eye pain, loss of vision or other ENT HEENT: Denies abnormal hearing, dysphagia, ear pain, epistaxis, headache(s), hearing loss, nasal congestion, nasal discharge, post nasal drip, sinus pressure, sore throat or other Cardiovascular Cardiovascular: Denies chest pain, claudication, dyspnea on exertion, edema, lightheadedness, orthopnea, palpitations, paroxysmal nocturnal dyspnea, rapid heart rate, syncope or other Respiratory/Chest Respiratory/Chest: Denies cough, dyspnea, excessive phlegm production, hemoptysis, productive cough, shortness of breath at rest, shortness of breath with exertion, wheezing or other Gastrointestinal Gastrointestinal: Reports abdominal pain, loose stools, nausea, vomiting and other Details: Large abdominal wound with drainage and eschar ; Denies coffee ground emesis, constipation, diarrhea, dyspepsia, hematemesis, hematochezia or melena Genitourinary Genitourinary: Denies burning urination, difficulty urinating, dysuria, hematuria, nocturia, urinary frequency, urinary hesitancy, urinary incontinence, urinary urgency or other Musculoskeletal Musculoskeletal: Reports back pain, joint pain, joint stiffness and myalgias; Denies arthralgias, joint swelling, neck pain or other Neurologic Neurologic: Denies abnormal gait, abnormal speech, confusion, disequilibrium, dizziness, focal weakness, headache(s), numbness, paresthesias, seizure-like activity, seizures, syncope, tingling, tremor(s) or other Psychiatric Psychiatric: Reports depression; Denies anxiety, homicidal ideation, suicidal ideation or other Endocrine Endocrinology: Denies change in body appearance, cold intolerance, excessive sweating, heat intolerance, polydipsia, polyuria or other Hematologic/Lymphatic Hematologic/Lymphatic: Denies anemia, easy bleeding, easy bruising, lymphadenopathy or other Allergic/Immunologic Allergic/Immunologic: Denies rhinitis, hives, eczemia, asthma or other Vital Signs Vital Signs Vital Signs: 07/27/22 13:41 07/27/22 13:44 07/27/22 13:44 Temperature 100 F H 100.0 F H 100.0 F H Temperature Source Oral Oral Temporal Pulse Rate 82 60 80 Respiratory Rate 15 17 17 Blood Pressure 107/76 107/76 107/76 Blood Pressure Mean 86 86 86 Pulse Ox 93 93 95 Oxygen Delivery Method Room Air Room Air Room Air 07/27/22 15:11 07/27/22 16:21 07/27/22 16:21 Temperature 99.9 F H 98.9 F Temperature Source Oral Temporal Pulse Rate 66 77 71 Respiratory Rate 17 17 16 Blood Pressure 104/96 H 108/52 L 108/52 L Blood Pressure Mean 98 70 70 Pulse Ox 99 99 99 Oxygen Delivery Method Room Air Room Air Room Air 07/27/22 17:27 07/27/22 17:48 Temperature 100.0 F H 98.2 F Temperature Source Temporal Temporal Pulse Rate 82 80 Respiratory Rate 15 19 H Blood Pressure 86/79 L 90/64 Blood Pressure Mean 81 72 Pulse Ox 99 99 Oxygen Delivery Method Room Air Room Air Weight Weight: 137.3 kg Body Mass Index (BMI) 43.4 Physical Exam Const alert and oriented x3 Constitutional Narrative: Morbidly obese, white female, lying in bed, face was quite flushed, at bedside, patient appears ill but not overtly toxic General Appearance: cooperative HEENT normocephalic, head/scalp atraumatic, hearing grossly normal bilaterally and moist oral mucous membranes HEENT Narrative: Edentulous, Mallampati is 2-3, no thrush Eyes PERRL, EOMs intact bilaterally and conjunctivae normal Eyes Narrative: No scleral icterus Neck no lymphadenopathy, supple, no JVD and no carotid bruits Neck Narrative: Trachea midline, neck is short and thick, no thyroid enlargement Resp normal respiratory effort, no retractions, no use of accessory muscles and clear to auscultation bilaterally Resp Narrative: Diffusely diminished but clear suspect this is related to body habitus Auscultation: Negative for crackles, rhonchi or wheezes Cardio regular rate, regular rhythm, S1 normal heart sound, S2 normal heart sound, no murmurs, no rub, no gallops and no clicks GI GI Narrative: IndurationTenderness with palpation surrounding the wound, and surrounding the wound, wound size is approximately size of a softball with eschar centrally, abdomen is protuberant with large pannus but nondistended and soft with normal bowel sounds Extremity no clubbing, cyanosis or edema Extremity Narrative: 2+ pedal pulses Skin skin turgor normal, no jaundice, no petechiae and no mottling Skin Narrative: Chemosis on right side, wound on abdomen as noted above, face is flushed , Neuro oriented x3, CN's II-XII intact bilaterally, moves all extremities and no focal motor deficits Neuro Narrative: Generalized weakness-good exam is difficult secondary to patient body habitus and positioning in bed Speech: speech normal Psych Mood & Affect: anxious Results Lab / Micro Data Result Diagrams: 07/27/22 15:00 07/27/22 15:00 Labs: Laboratory Results - last 24 hr 07/27/22 15:00: WBC 11.0, RBC 4.08 L, Hgb 12.9, Hct 38.1, MCV 93.4, MCH 31.6, MCHC 33.9, RDW Std Deviation 49.5 H, RDW Coeff of Yajaira 14.3, Plt Count 353, MPV 10.1, Immature Gran % (Auto) 0.600, Neut % (Auto) 73.1 H, Lymph % (Auto) 20.1, Marin % (Auto) 4.6, Eos % (Auto) 1.3, Baso % (Auto) 0.3, Absolute Neuts (auto) 8.0 H, Absolute Lymphs (auto) 2.21, Nucleated RBC % 0 07/27/22 15:00: Sodium 138, Potassium 2.2 L*, Chloride 97 L, Carbon Dioxide 32.0, Anion Gap 9, BUN 7, Creatinine 0.75, Estim Creat Clear Calc 98.12, Est GFR (MDRD) Af Amer 106, Est GFR (MDRD) Non-Af 88, BUN/Creatinine Ratio 9.4 L, Glucose 240 H, Calcium 7.6 L, Total Bilirubin 0.50, AST 14 L, ALT 14, Alkaline Phosphatase 107, Total Protein 7.0, Albumin 1.7 L, Globulin 5.3 H, Albumin/Globulin Ratio 0.3 L 07/27/22 15:00: Lactic Acid 2.1 H* 07/27/22 15:25: Urine Color Yellow, Urine Clarity Sl. Cloudy, Urine pH 7.0, Ur Specific Gillett 1.010, Urine Protein 30 H, Urine Glucose (UA) Normal, Urine Ketones Negative, Urine Occult Blood 25 H, Urine Nitrite Positive H, Urine Bilirubin Negative, Urine Urobilinogen Normal, Ur Leukocyte Esterase 500 H, Urine RBC 0 SEEN, Urine WBC >100 SEEN, Ur Squamous Epith Cells 0 SEEN, Urine Bacteria 3+, Urine Mucus 0 SEEN Radiology Impression Abdomen/Pelvis CT 07/27/22 14:09 IMPRESSION: (NOT LISTED IN ORDER OF SIGNIFICANCE) Partial collapse of the inferior vena cava suggesting dehydration. Midline anterior abdominal wall fluid collection with air measuring 45 x 25 x 26 mm. This is concerning for a subcutaneous post operative abscess. Other findings as above. Electronically Signed: Jesu Mccallum MD at 16:17 EST , Assessment & Plan Assessment/Plan (1) Sepsis: (2) Abdominal abscess: (3) Suspected urinary tract infection: (4) Hypokalemia: (5) Lactic acidosis: PLAN: Plan Sepsis secondary to abdominal abscess and suspected urinary tract infection -CT of the abdomen shows midline anterior abdominal wall fluid collection that is 4.5 x 2.5 x 2.6 mm that is concerning for a subcutaneous postoperative abscess -Obtain blood cultures/urine culture -Fluid resuscitation with 30 cc/kg of body weight which is 4.5 L -Already received 2 L in the emergency department -May need pressors if blood pressure does not improve with IV fluids -Start broad-spectrum antibiotics with vancomycin and Zosyn -As needed fentanyl for pain given blood pressure issues -Surgical consultation for I&D -Cultures to be obtained intraoperatively -We will make patient n.p.o. after midnight in case patient is able to go to the OR tomorrow -Her initial surgery was done at [facility] however there refusing to take our call at this time as they have no ability for transfer therefore she will be admitted here Lactic acidosis -Secondary to above -Follow -Should improve with hydration Severe hypokalemia -Potassium on admission is 2.2 -40 mill equivalents given the emergency department -We will give another 60 mill equivalents -Repeat potassium in a.m. -Check a.m. magnesium level History of bowel resection -Initially had hernia repair in August 2021--> January 2022 mesh removal with 12 inches of colon removed--> was last seen by surgeon in February and evidently had 2 open areas in the abdominal wall at that time--> patient reports current open area has been there for approximately 2 to 3 weeks however edges turned black in the last 4 days. -She reports necrosis and it was done earlier this year at [facility]-->Dr. Hong at [facility] -States she now has short gut -Monitor for diarrhea -If she does have loose stool will start Imodium as needed to slow things down for her as well as fiber supplement to thicken stool DM-2 -Check hemoglobin A1c -Continue home Lantus -Sliding scale insulin -Accu-Cheks Hypothyroidism -Continue home levothyroxine -Check TSH Fibromyalgia -Continue home Topamax -We will continue other home medications once verified if she is still taking Hyperlipidemia -Continue home atorvastatin Depression/anxiety -Continue home Effexor -Hold Ativan until blood pressures improve Insomnia -We will hold Ambien for now -Melatonin Morbid obesity -BMI 43.4 -Recommend weight loss -Complicates treatment, prognosis, outcomes CODE STATUS -Full code as confirmed in the emergency department admission Sepsis Attestation Sepsis Alert: Yes Sepsis Attestation: Agree w/Sepsis Date exam was performed: 07/27/22 Time exam was performed: 18:15 Possible Source of Sepsis: Genitourinary and Skin/soft tissue Sepsis Organ Dysfunction Criteria Present: SBP < 90 mmHg or MAP < 65 mmHg and Lactic Acid > 2 mmol/L Supportive Findings: Patient with persistent hypotension after 1 L bolus and an elevated lactic acid. No other endorgan damage however patient has significant source of infection and abdominal wound that appears to be infected as well as a urinary tract infection and has had fever prior to presentation as well as tachypnea. I do highly think that this is sepsis related caught early and will intervene accordingly. Fluid Resuscitation Fluid resuscitation indicated?: Yes Fluid Resuscitation ordered: 30 ml/kg fluid bolus ordered Charges/Coding Visit Charges Inpatient E&M: 10799 Init Hosp L3
[2022-07-27 19:06] LABS: Reflex Lactate? Y
--- NOTE | 2022-07-27 20:17 | CON.PCM.SX_ITS ---
Assessment & Plan Assessment/Plan (1) Open abdominal wall wound: PLAN: see below PLAN: Plan Patient with multiple medical morbidities with open draining abdominal wound that has been present since her last admission at [facility]. Will consider wound debridement, but patient also will require wound vac for optimal healing due to patient's body habitus and will consider this tomorrow. May require consultation to plastic surgery. Attempted transfer to [facility] - was refused by [facility]. HPI Consult Data Date of Consult: 07/27/22 HPI Narrative Reason for Consultation: abdominal wall draining wound HPI Narrative: ROMIE JIMENEZ, is a 47 F who presents with draining abdominal wall wound. She is s/p multiple abdominal wall hernia repairs with mesh - last - laparoscopic ventral hernia repair with mesh 09/03/2021 at [facility]. She presented in January 2022 with necrotic bowel and underwent cecal and distal ileum resection for necrotizing enteritis and then had second look laparotomy two days later with reanastomosis of bowel 02/01/2022. She has had multiple admissions to [facility] for abdominal infections - intraabdominal and abdominal wall. Her last admission was in May in which she presented with sepsis and hypotension. She was non compliant and refused placement of drainage tubes/wound vac. She is presently in a SNF and has been undergoing wound dressing changes. Upon inspection, this has been with iodoform gauze. Because the area had blackened edges, she was sent to [facility] ED, because the patient states the the SNF said they cannot care for her anymore due to the blackened wound. Patient has multiple medical morbidities: poorly controlled diabetes, morbid obesity, hypertension, anxiety/depressive disorder, migraine headaches, chronic pain/fibromyalgia. [facility] Medical History (Updated 07/27/22 @ 20:[address] Yumi Lantigua MD) Anxiety and depression Carpal tunnel syndrome Diabetes type 2, uncontrolled Fatty liver Fibromyalgia GERD (gastroesophageal reflux disease) HTN (hypertension) Lupus Open abdominal wall wound Seasonal allergies Thyroid disease Home Medications aluminum-magnesium hydroxide 225 mg-200 mg/5 mL oral suspension 30 ml PO Q4H PRN Indigestion 04/14/22 [History Last Taken Unknown] amitriptyline 75 mg tablet 75 mg PO QHS 04/14/22 [History Last Taken Unknown] bupropion HCl 150 mg 24 hr tablet, extended release 150 mg PO DAILY 04/14/22 [History Last Taken Unknown] famotidine 20 mg tablet 20 mg PO QHS 04/14/22 [History Last Taken Unknown] gabapentin 100 mg tablet 200 mg PO TID 04/14/22 [History Last Taken Unknown] hydromorphone 4 mg tablet 4 mg PO Q4H PRN Pain 04/14/22 [History Last Taken Unknown] insulin glargine 100 unit/mL (3 mL) subcutaneous pen (Lantus Solostar U-100 I nsulin) 14 unit subcut QHS 04/14/22 [History Last Taken Unknown] levothyroxine 300 mcg tablet 300 mcg PO DAILY 04/14/22 [History Last Taken Unknown] loperamide 2 mg tablet 2 mg PO Q2H PRN Diarrhea 04/14/22 [History Last Taken Unknown] magnesium oxide 400 mg PO TID 04/14/22 [History Last Taken Unknown] mirtazapine 15 mg tablet 15 mg PO QHS 04/14/22 [History Last Taken Unknown] multivitamin 1 tab PO DAILY 04/14/22 [History Last Taken Unknown] oxycodone 40 mg tablet,extended release,12 hr 40 mg PO Q8H PRN Pain 04/14/22 [History Last Taken Unknown] tizanidine 4 mg tablet 4 mg PO TID 04/14/22 [History Last Taken Unknown] acetaminophen 325 mg capsule (Tylenol) 650 mg PO Q6H PRN Breakthrough Pain, Mild 07/27/22 [History Last Taken Unknown] albuterol sulfate 2.5 mg/3 mL (0.083 %) solution for nebulization 2.5 mg inhalation Q4H PRN Cough 07/27/22 [History Last Taken Unknown] atorvastatin 40 mg tablet 40 mg PO QHS 07/27/22 [History Last Taken Unknown] fluticasone propionate 220 mcg/actuation HFA aerosol inhaler 2 puff inhalation BID 07/27/22 [History Last Taken Unknown] lorazepam 0.5 mg tablet 0.5 mg PO TID PRN Anxiety 07/27/22 [History Last Taken Unknown] topiramate 100 mg tablet (Topamax) 100 mg PO QHS 07/27/22 [History Last Taken Unknown] venlafaxine 150 mg capsule,extended release 24 hr (Effexor XR) 150 mg PO DAILY 07/27/22 [History Last Taken Unknown] zolpidem 10 mg tablet (Ambien) 10 mg PO QHS PRN Insomnia 07/27/22 [History Last Taken Unknown] Allergy/AdvReac Type Severity Reaction Status Date / Time cephalexin Allergy Other Verified 04/14/22 19:17 hydroxyzine [From Atarax] Allergy Hives Verified 12/08/21 11:57 oxymetazoline Allergy NEEDS Verified 04/14/22 19:17 FOLLOW-UP Sulfa (Sulfonamide Allergy Hives Verified 12/08/21 11:57 Antibiotics) sulfadiazine Allergy NEEDS Verified 04/14/22 19:17 FOLLOW-UP duloxetine [From Cymbalta] AdvReac Other Verified 12/08/21 11:57 raspberry AdvReac Other Verified 12/08/21 11:57 Family History Mother Arthritis Breast cancer Heart disease Father Heart disease Alcohol abuse Blood clot in vein Sister Anxiety Depression Brother Anxiety Surgical History cervical lymph node excision H/O hernia repair H/O sinus surgery H/O thyroidectomy H/O: History of incision and drainage Hx of appendectomy Hx of cholecystectomy l toe surgery S/P bronchoscopy S/P RUTH (total abdominal hysterectomy) Social History household members: spouse Smoking Status: Former smoker alcohol intake: current alcohol intake frequency: holidays/special occasions only substance use type: does not use ROS Constitutional Constitutional: Denies fever(s) Eyes Eyes: Denies loss of central vision ENT HEENT: Denies epistaxis Cardiovascular Cardiovascular: Denies chest pain at rest Respiratory/Chest Respiratory/Chest: Denies productive cough or shortness of breath at rest Gastrointestinal Gastrointestinal: Reports abdominal pain; Denies hematochezia Genitourinary Genitourinary: Denies hematuria Musculoskeletal Musculoskeletal: Reports back pain and joint pain; Denies abnormal gait Integumentary Integumentary: Denies jaundice Psychiatric Psychiatric: Reports anxiety and depression Physical Exam Const alert and oriented x3 Constitutional Narrative: morbidly obese HEENT head/scalp atraumatic Eyes Eyes Narrative: no icterus noted Neck supple Resp normal respiratory effort Effort and Inspection: able to speak in complete sentences Cardio Rate: regular rate GI GI Narrative: abdomen is morbidly obese, with central wound with opening, draining - fibrinous exudate Medical Records Data Attestation: I reviewed the patient's medical records Lab / Micro Data Attestation: I reviewed the patient's lab results. Result Diagrams: 07/27/22 15:00 07/27/22 15:00 Labs: Laboratory Results - last 24 hr 07/27/22 15:00: WBC 11.0, RBC 4.08 L, Hgb 12.9, Hct 38.1, MCV 93.4, MCH 31.6, MCHC 33.9, RDW Std Deviation 49.5 H, RDW Coeff of Yajaira 14.3, Plt Count 353, MPV 10.1, Immature Gran % (Auto) 0.600, Neut % (Auto) 73.1 H, Lymph % (Auto) 20.1, [place] % (Auto) 4.6, Eos % (Auto) 1.3, Baso % (Auto) 0.3, Absolute Neuts (auto) 8.0 H, Absolute Lymphs (auto) 2.21, Nucleated RBC % 0 07/27/22 15:00: Sodium 138, Potassium 2.2 L*, Chloride 97 L, Carbon Dioxide 32.0, Anion Gap 9, BUN 7, Creatinine 0.75, Estim Creat Clear Calc 98.12, Est GFR (MDRD) Af Amer 106, Est GFR (MDRD) Non-Af 88, BUN/Creatinine Ratio 9.4 L, Glucose 240 H, Calcium 7.6 L, Total Bilirubin 0.50, AST 14 L, ALT 14, Alkaline Phosphatase 107, Total Protein 7.0, Albumin 1.7 L, Globulin 5.3 H, Albumin/Globulin Ratio 0.3 L 07/27/22 15:00: Lactic Acid 2.1 H* 07/27/22 15:25: Urine Color Yellow, Urine Clarity Sl. Cloudy, Urine pH 7.0, Ur Specific [place] 1.010, Urine Protein 30 H, Urine Glucose (UA) Normal, Urine Ketones Negative, Urine Occult Blood 25 H, Urine Nitrite Positive H, Urine Bilirubin Negative, Urine Urobilinogen Normal, Ur Leukocyte Esterase 500 H, Urine RBC 0 SEEN, Urine WBC >100 SEEN, Ur Squamous Epith Cells 0 SEEN, Urine Bacteria 3+, Urine Mucus 0 SEEN Radiology Impression Abdomen/Pelvis CT 12/10/22 14:09 IMPRESSION: (NOT LISTED IN ORDER OF SIGNIFICANCE) Partial collapse of the inferior vena cava suggesting dehydration. Midline anterior abdominal wall fluid collection with air measuring 45 x 25 x 26 mm. This is concerning for a subcutaneous post operative abscess. Other findings as above. Electronically Signed: Jesu Mccallum MD at 16:17 EST ,
[2022-07-27] MEDS: fentaNYL 100 MCG/2 ML Ampul 25 MCG IV (20:19)
[2022-07-27 20:39] LABS: M R Staph aureus DNA By PCR Negative (Negative); Probe Check PASS; Specimen Processing Control PASS
[2022-07-27] MEDS: Potassium Chloride Oral Tablet 20 MEQ 60 MEQ PO (20:41)
--- NOTE | 2022-07-27 20:55 | PCM.RX.CS ---
Consult Pharmacy has been consulted to manage selected antiobiotic: Vancomycin Type of Consult: New start Suspected Infection: Sepsis Prior Doses of Antibiotics Received/Current Regimen: Medications Vancomycin HCl 1,250 mg/ (Sodium Chloride) 275 mls @ 167 mls/hr IV Q8H NUNU Vancomycin HCl 2,000 mg/ (Sodium Chloride) 540 mls @ 250 mls/hr IV X1 ONE Stop: 07/27/22 22:09 Last Admin: 07/27/22 20:20 Dose: 250 mls/hr Labs: Sodium 138 mmol/L (136-145) 07/27/22 15:00 Potassium 2.2 mmol/L (3.5-5.1) L* 07/27/22 15:00 Chloride 97 mmol/L (98-107) L 07/27/22 15:00 Carbon Dioxide 32.0 mmol/L (21.0-32.0) 07/27/22 15:00 Anion Gap 9 (5-15) 07/27/22 15:00 BUN 7 mg/dL (7-18) 07/27/22 15:00 Creatinine 0.75 mg/dL (0.55-1.02) 07/27/22 15:00 Est GFR (MDRD) Af Amer 106 mL/min (>60) 07/27/22 15:00 Est GFR (MDRD) Non-Af 88 mL/min (>60) 07/27/22 15:00 BUN/Creatinine Ratio 9.4 RATIO (10-20) L 07/27/22 15:00 Glucose 240 mg/dL (74-106) H 07/27/22 15:00 Weight used for dosin kg Estimated Creatinine Clearance: 98 Goal Trough: 15-20 mcg/mL Pharmacy Plan for Drug Dosing: Pharmacy Service will continue to monitor and adjust dosing as required. Follow-Up Labs: Trough Vancomycin Labs to be done on [date and time ordered]: 07/28/22 @1999
[2022-07-27] MEDS: 0.9% Saline Lock 10 ML Syringe IV (21:16)
--- NOTE | 2022-07-27 21:37 | PCM.PN.BLA ---
Progress Note Patient is requesting for home Ambien since she has been on for about 10 years. She states that melatonin in the past has not worked for her. Ambien ordered.
[2022-07-27] MEDS: Topiramate 100 MG Tablet PO (22:24)
[2022-07-27] MEDS: Enoxaparin 40 MG/0.4 ML Syringe SC (22:24)
[2022-07-27] MEDS: Atorvastatin Calcium 40 MG Tablet PO (22:24)
[2022-07-27] MEDS: Insulin Glargine-YFGN 100 UNIT/ML Pen 14 UNIT SC (22:24)
[2022-07-27] MEDS: Zolpidem Tartrate 5 MG Tablet PO (22:25)
[2022-07-27 22:55] LABS: Bedside Glucose 164 mg/dL (74-106)
[2022-07-28] VITALS (15 sets, daily range): BP systolic 100–151; BP diastolic 63–99; PULSE 106–131; RESP 15–16; TEMP 35.9–36.6; O2SAT 95–100
[2022-07-28] MEDS: fentaNYL 100 MCG/2 ML Ampul 25 MCG IV ×4 (02:32→13:13)
[2022-07-28] MEDS: proCHLORPERazine 10 MG/2 ML Vial 5 MG IV (02:32)
[2022-07-28] MEDS: Ondansetron 4 MG/2 ML Vial IV ×2 (04:58→12:08)
--- NOTE | 2022-07-28 06:59 | EX.PCM.CONCC ---
Assessment & Plan Assessment/Plan (1) Abdominal abscess: (2) Morbid obesity: (3) Sepsis: PLAN: Plan RECOMMENDATIONS: 1. Obtain PICC line 2. Administer IV potassium 3. Await recheck of labs 4. Continue IV antibiotics 5. Defer to surgery on possible placement of NG tube 6. Consider transfer to tertiary center for wound exploration. Defer to surgery. IMPRESSIONS: 1. Sepsis secondary to abdominal abscess with possible UTI CT of the abdomen shows a large fluid collection. Unclear if patient has fistula formation at this time. Patient did respond to fluid resuscitation. Patient is appropriately on antibiotics. Patient will likely need surgical debridement. Defer to surgery on whether patient should go to a tertiary center. Clinical suspicion is patient will have protracted requirements, so a PICC line will be placed. Patient likely will require drainage of abscess in the next 24 hours to avoid major complication. We will add clindamycin for possible necrotizing fasciitis. This was not noted on the CT scan initially, but wound reportedly is worse. 2. Severe hypokalemia Patient has had significant nausea and vomiting overnight, so oral supplementation has not been effective. We will give patient IV potassium. PICC line will be placed. Electrolytes will need to be monitored. Patient would be at risk for hypomagnesemia also, so this will be added onto the ER labs to see if this can also be replaced. 3. Diabetes mellitus type 2/hypothyroidism/fibromyalgia/debility/morbid obesity Complicates care, management, recovery and prognosis. We will need to watch blood sugars closely given problem #1. Patient would likely also benefit from PT/OT, but defer to primary service. HPI Consult Data Date of Consult: 07/28/22 HPI Narrative Reason for Consultation: Sepsis HPI Narrative: ROMIE JIMENEZ is a 47 F, with past medical history listed below, who presents to [facility] on 07/27/2022 with complaints of nausea, vomiting and abdominal pain. Patient reportedly had a hernia repair back in August with mesh. This subsequently became infected and she had repeat surgery in January requiring approximately 12 inches of colon resection. This was reportedly done at [facility] and she was last seen in February. Patient reports that over the last 4 days the edges had turned black and she started to develop nausea, vomiting and fevers. Patient had attempted to contact her surgeon, but was told that there was not much to do over the phone and she should present to the ER for an evaluation. Patient reportedly is staying in an ECF to help with wound care. In the ER, patient was noted to have a temperature of 100 ?F, blood pressure of 107/76 and saturating well on room air. ER physician reported dark mix fluid at the base of the abdominal wound with dark edges. No foul odor was reported. Laboratory data showed a white blood cell count of 11, hemoglobin of 12.9 and platelets of 353. Patient's initial chemistries showed a potassium of 2.2, bicarbonate of 32 and a lactate of 2.1. Urinalysis was suggestive of UTI. CT of the abdomen and pelvis showed partial collapse of the inferior vena cava and a midline anterior fluid collection measuring 45 x 25 x 26 mm concerning for subcutaneous postoperative abscess. Surgery was consulted. Patient was given Zosyn. Attempts to transfer to [facility] were unsuccessful secondary to a bed availability. Since being in the intensive care unit, patient has remained hemodynamically stable. Patient has had significant nausea and vomiting reported. Patient is not reporting any chest pain. Patient does report some pain at the abdominal site. Patient is very tearful and states that she has been poked a lot. Patient states she has been miserable for weeks, but feels that the wound only turned black in the last 4 to 5 days. Patient is not reporting any respiratory symptoms at this time. Patient has not had any cramping or palpitations reported. Review of systems otherwise negative from a constitutional, HEENT, respiratory, cardiovascular, GI, genitourinary, musculoskeletal, skin, neurologic, psychiatric and hematologic system unless stated above. [facility] Medical History Anxiety and depression Carpal tunnel syndrome Diabetes type 2, uncontrolled Fatty liver Fibromyalgia GERD (gastroesophageal reflux disease) HTN (hypertension) Lupus Open abdominal wall wound Seasonal allergies Thyroid disease Home Medications aluminum-magnesium hydroxide 225 mg-200 mg/5 mL oral suspension 30 ml PO Q4H PRN Indigestion 04/14/22 [History Last Taken Unknown] amitriptyline 75 mg tablet 75 mg PO QHS 04/14/22 [History Last Taken Unknown] bupropion HCl 150 mg 24 hr tablet, extended release 150 mg PO DAILY 04/14/22 [History Last Taken Unknown] famotidine 20 mg tablet 20 mg PO QHS 04/14/22 [History Last Taken Unknown] gabapentin 100 mg tablet 200 mg PO TID 04/14/22 [History Last Taken Unknown] hydromorphone 4 mg tablet 4 mg PO Q4H PRN Pain 04/14/22 [History Last Taken Unknown] insulin glargine 100 unit/mL (3 mL) subcutaneous pen (Lantus Solostar U-100 Insulin) 14 unit subcut QHS 04/14/22 [History Last Taken Unknown] levothyroxine 300 mcg tablet 300 mcg PO DAILY 04/14/22 [History Last Taken Unknown] loperamide 2 mg tablet 2 mg PO Q2H PRN Diarrhea 04/14/22 [History Last Taken Unknown] magnesium oxide 400 mg PO TID 04/14/22 [History Last Taken Unknown] mirtazapine 15 mg tablet 15 mg PO QHS 04/14/22 [History Last Taken Unknown] multivitamin 1 tab PO DAILY 04/14/22 [History Last Taken Unknown] oxycodone 40 mg tablet,extended release,12 hr 40 mg PO Q8H PRN Pain 04/14/22 [History Last Taken Unknown] tizanidine 4 mg tablet 4 mg PO TID 04/14/22 [History Last Taken Unknown] acetaminophen 325 mg capsule (Tylenol) 650 mg PO Q6H PRN Breakthrough Pain, Mild 07/27/22 [History Last Taken Unknown] albuterol sulfate 2.5 mg/3 mL (0.083 %) solution for nebulization 2.5 mg inhalation Q4H PRN Cough 07/27/22 [History Last Taken Unknown] atorvastatin 40 mg tablet 40 mg PO QHS 07/27/22 [History Last Taken Unknown] fluticasone propionate 220 mcg/actuation HFA aerosol inhaler 2 puff inhalation BID 07/27/22 [History Last Taken Unknown] lorazepam 0.5 mg tablet 0.5 mg PO TID PRN Anxiety 07/27/22 [History Last Taken Unknown] topiramate 100 mg tablet (Topamax) 100 mg PO QHS 07/27/22 [History Last Taken Unknown] venlafaxine 150 mg capsule,extended release 24 hr (Effexor XR) 150 mg PO DAILY 07/27/22 [History Last Taken Unknown] zolpidem 10 mg tablet (Ambien) 10 mg PO QHS PRN Insomnia 07/27/22 [History Last Taken Unknown] Allergy/AdvReac Type Severity Reaction Status Date / Time cephalexin Allergy Other Verified 04/14/22 19:17 hydroxyzine [From Atarax] Allergy Hives Verified 12/08/21 11:57 oxymetazoline Allergy NEEDS Verified 04/14/22 19:17 FOLLOW-UP Sulfa (Sulfonamide Allergy Hives Verified 12/08/21 11:57 Antibiotics) sulfadiazine Allergy NEEDS Verified 04/14/22 19:17 FOLLOW-UP duloxetine [From Cymbalta] AdvReac Other Verified 12/08/21 11:57 raspberry AdvReac Other Verified 12/08/21 11:57 Family History Mother Arthritis Breast cancer Heart disease Father Heart disease Alcohol abuse Blood clot in vein Sister Anxiety Depression Brother Anxiety Surgical History cervical lymph node excision H/O hernia repair H/O sinus surgery H/O thyroidectomy H/O: History of incision and drainage Hx of appendectomy Hx of cholecystectomy l toe surgery S/P bronchoscopy S/P RUTH (total abdominal hysterectomy) Social History household members: spouse Smoking Status: Former smoker alcohol intake: current alcohol intake frequency: holidays/special occasions only substance use type: does not use ROS ROS Narrative See HPI Physical Exam Const alert and oriented x3 Constitutional Narrative: Morbidly obese, white female, lying in bed General Appearance: cooperative HEENT normocephalic, head/scalp atraumatic, hearing grossly normal bilaterally and moist oral mucous membranes HEENT Narrative: Edentulous, Mallampati is 3, no thrush or erythema Eyes PERRL, EOMs intact bilaterally, conjunctivae normal and no scleral icterus Neck no lymphadenopathy, supple, no JVD and no carotid bruits Neck Narrative: Trachea midline, neck is short and thick, no thyroid enlargement Resp normal respiratory effort, no retractions, no use of accessory muscles and clear to auscultation bilaterally Resp Narrative: Exam limited given body habitus Auscultation: Negative for rales, rhonchi or wheezes Cardio regular rate, regular rhythm, S1 normal heart sound, S2 normal heart sound, no murmurs, no rub, no gallops and no clicks GI GI Narrative: Induration and tenderness with palpation surrounding the wound wound is approximately 6 cm across. Abdomen is protuberant with large pannus but nondistended and soft with normal bowel sounds. There does appear to be some regression in erythema from marked area. Palpation: guarding Extremity no clubbing, cyanosis or edema Extremity Narrative: 2+ pedal pulses Skin skin turgor normal, no jaundice, no petechiae and no mottling Skin Narrative: Chemosis on right side, wound on abdomen as noted above , Neuro oriented x3, CN's II-XII intact bilaterally, moves all extremities and no focal motor deficits Neuro Narrative: Generalized weakness-good exam is difficult secondary to patient body habitus and positioning in bed Speech: speech normal Psych Mood & Affect: anxious Lab / Micro Data Attestation: I reviewed the patient's lab results. Result Diagrams: 07/27/22 15:00 07/27/22 15:00 Labs: Laboratory Results - last 24 hr 07/27/22 15:00: WBC 11.0, RBC 4.08 L, Hgb 12.9, Hct 38.1, MCV 93.4, MCH 31.6, MCHC 33.9, RDW Std Deviation 49.5 H, RDW Coeff of Yajaira 14.3, Plt Count 353, MPV 10.1, Immature Gran % (Auto) 0.600, Neut % (Auto) 73.1 H, Lymph % (Auto) 20.1, [place] % (Auto) 4.6, Eos % (Auto) 1.3, Baso % (Auto) 0.3, Absolute Neuts (auto) 8.0 H, Absolute Lymphs (auto) 2.21, Nucleated RBC % 0 07/27/22 15:00: Sodium 138, Potassium 2.2 L*, Chloride 97 L, Carbon Dioxide 32.0, Anion Gap 9, BUN 7, Creatinine 0.75, Estim Creat Clear Calc 98.12, Est GFR (MDRD) Af Amer 106, Est GFR (MDRD) Non-Af 88, BUN/Creatinine Ratio 9.4 L, Glucose 240 H, Calcium 7.6 L, Total Bilirubin 0.50, AST 14 L, ALT 14, Alkaline Phosphatase 107, Total Protein 7.0, Albumin 1.7 L, Globulin 5.3 H, Albumin/Globulin Ratio 0.3 L 07/27/22 15:00: Lactic Acid 2.1 H* 07/27/22 15:25: Urine Color Yellow, Urine Clarity Sl. Cloudy, Urine pH 7.0, Ur Specific [place] 1.010, Urine Protein 30 H, Urine Glucose (UA) Normal, Urine Ketones Negative, Urine Occult Blood 25 H, Urine Nitrite Positive H, Urine Bilirubin Negative, Urine Urobilinogen Normal, Ur Leukocyte Esterase 500 H, Urine RBC 0 SEEN, Urine WBC >100 SEEN, Ur Squamous Epith Cells 0 SEEN, Urine Bacteria 3+, Urine Mucus 0 SEEN 07/27/22 19:00: MRSA (PCR) Negative 07/27/22 22:22: POC Glucose 164 H Radiology Impression Abdomen/Pelvis CT 07/27/22 14:09 IMPRESSION: (NOT LISTED IN ORDER OF SIGNIFICANCE) Partial collapse of the inferior vena cava suggesting dehydration. Midline anterior abdominal wall fluid collection with air measuring 45 x 25 x 26 mm. This is concerning for a subcutaneous post operative abscess. Other findings as above. Electronically Signed: Jesu Mccallum MD at 16:17 EST , Charges/Coding Visit Charges Inpatient E&M: 87866 Init Hosp L3
[2022-07-28 07:00] LABS: Bedside Glucose 179 mg/dL (74-106)
[2022-07-28] MEDS: Potassium Chloride 10mEq/100mL 10 MEQ/100 ML IV.SOLN. 100 MEQ IV BOLUS ×4 (08:12→14:09)
[2022-07-28] MEDS: fentaNYL 100 MCG/2 ML Ampul 50 MCG IV (08:14)
[2022-07-28 09:00] LABS: Magnesium 1.5 mg/dL (1.6-2.6)
[2022-07-28] MEDS: Clindamycin 600 MG/50 ML BAG 100 MG IV (09:42)
--- NOTE | 2022-07-28 10:49 | PCM.PN.SRG ---
Subjective Subjective patient with abdominal pain abdominal wall wound appears worse attempted to transfer back to [facility] as patient had all her surgeries there and she was last hospitalized there in May, but the nurses told me that the transfer line hung up on Pippa's caller request Objective Data Objective Data Vital Signs: Vital Signs Temp Pulse Resp BP Pulse Ox O2 Del Method 97.9 F 122 H 15 120/74 97 Room Air 07/28/22 04:00 07/28/22 06:00 07/28/22 06:00 07/28/22 06:00 07/28/22 06:00 07/28/22 06:00 Oxygen Delivery Method Room Air Weight: 133.9 kg Body Mass Index (BMI) 41.4 Intake & Output: Intake and Output for Last 24 Hours 07/26/22 07/27/22 07/28/22 23:59 23:59 23:59 Intake Total 4655.7 / 4655.7 1325 / 1325 Output Total 700 / 700 Balance 4655.7 / 4655.7 625 / 625 Lab / Micro Data Result Diagrams: 07/27/22 15:00 07/27/22 15:00 Labs: Laboratory Results - last 24 hr 07/27/22 15:00: WBC 11.0, RBC 4.08 L, Hgb 12.9, Hct 38.1, MCV 93.4, MCH 31.6, MCHC 33.9, RDW Std Deviation 49.5 H, RDW Coeff of Yajaira 14.3, Plt Count 353, MPV 10.1, Immature Gran % (Auto) 0.600, Neut % (Auto) 73.1 H, Lymph % (Auto) 20.1, [place] % (Auto) 4.6, Eos % (Auto) 1.3, Baso % (Auto) 0.3, Absolute Neuts (auto) 8.0 H, Absolute Lymphs (auto) 2.21, Nucleated RBC % 0 07/27/22 15:00: Sodium 138, Potassium 2.2 L*, Chloride 97 L, Carbon Dioxide 32.0, Anion Gap 9, BUN 7, Creatinine 0.75, Estim Creat Clear Calc 98.12, Est GFR (MDRD) Af Amer 106, Est GFR (MDRD) Non-Af 88, BUN/Creatinine Ratio 9.4 L, Glucose 240 H, Calcium 7.6 L, Total Bilirubin 0.50, AST 14 L, ALT 14, Alkaline Phosphatase 107, Total Protein 7.0, Albumin 1.7 L, Globulin 5.3 H, Albumin/Globulin Ratio 0.3 L 07/27/22 15:00: Lactic Acid 2.1 H* 07/27/22 15:00: Magnesium 1.5 L 07/27/22 15:25: Urine Color Yellow, Urine Clarity Sl. Cloudy, Urine pH 7.0, Ur Specific [place] 1.010, Urine Protein 30 H, Urine Glucose (UA) Normal, Urine Ketones Negative, Urine Occult Blood 25 H, Urine Nitrite Positive H, Urine Bilirubin Negative, Urine Urobilinogen Normal, Ur Leukocyte Esterase 500 H, Urine RBC 0 SEEN, Urine WBC >100 SEEN, Ur Squamous Epith Cells 0 SEEN, Urine Bacteria 3+, Urine Mucus 0 SEEN 07/27/22 19:00: MRSA (PCR) Negative 07/27/22 22:22: POC Glucose 164 H 07/28/22 06:39: POC Glucose 179 H Radiography Diagnostic Testing: Radiology Impression Abdomen/Pelvis CT 07/27/22 14:09 IMPRESSION: (NOT LISTED IN ORDER OF SIGNIFICANCE) Partial collapse of the inferior vena cava suggesting dehydration. Midline anterior abdominal wall fluid collection with air measuring 45 x 25 x 26 mm. This is concerning for a subcutaneous post operative abscess. Other findings as above. Electronically Signed: Jesu Mccallum MD at 16:17 EST Reading Location ID and State: [address] [place] [address] , Service support , Assessment & Plan Assessment/Plan (1) Open abdominal wall wound: PLAN: see below PLAN: Plan I am concerned about the worsening nature of the wound. If transfer still continues to be delayed, then I will take patient to surgery for abdominal wall debridement though I feel uncomfortable in doing this - possibly later today She will more than likely need multiple debridements. I have counseled patient of the risks of the procedure, including but not limited to: further infection, bleeding, injury to any blood vessels/nerves, risk for enterotomy/intestinal abdominal wall fistula, non healing of wound, cosmetic deformity, scar tissue (given her multiple medical morbidities - risk of ID/pneumonia/DVT/CVA/PE, etc) - patient understands.
--- NOTE | 2022-07-28 11:59 | PCM.DC.SUM ---
Providers Date of Admission: 07/27/22 Date of Discharge: 07/28/22 Primary Care Physician: DEEJAY Guardado Consultations 07/27/22 19:26 Consult: General Surgery Routine Consulting Provider: Yumi Lantigua Reason for Consult: Abdominal wound EMERGENT Consult: No MD Notified: Yes Date Notified: 07/27/22 Time Notified: 18:31 Method of Notification: ED Physician Initiated Consult: Sign Wirer / Pulmonary Medicine Routine Consulting Provider: Pulmonary Medicine stacy [place] Reason for Consult: Sepsis EMERGENT Consult: No MD Notified: Yes Date Notified: 07/27/22 Time Notified: 18:29 Method of Notification: Text Reason For Visit: SEPSIS SECONDARY TO UTI/ABDOMINAL WOUND INFECTION Diagnosis Discharge Diagnosis (1) Open abdominal wall wound: Status: Acute Code(s): S31.109A - Unspecified open wound of abdominal wall, unspecified quadrant without penetration into peritoneal cavity, initial encounter Medications at Discharge Home Medications aluminum-magnesium hydroxide 225 mg-200 mg/5 mL oral suspension 30 ml PO Q4H PRN Indigestion 04/14/22 amitriptyline 75 mg tablet 75 mg PO QHS 04/14/22 bupropion HCl 150 mg 24 hr tablet, extended release 150 mg PO DAILY 04/14/22 famotidine 20 mg tablet 20 mg PO QHS 04/14/22 gabapentin 100 mg tablet 200 mg PO TID 04/14/22 hydromorphone 4 mg tablet 4 mg PO Q4H PRN Pain 04/14/22 insulin glargine 100 unit/mL (3 mL) subcutaneous pen (Lantus Solostar U-100 Insulin) 14 unit subcut QHS 04/14/22 levothyroxine 300 mcg tablet 300 mcg PO DAILY 04/14/22 loperamide 2 mg tablet 2 mg PO Q2H PRN Diarrhea 04/14/22 magnesium oxide 400 mg PO TID 04/14/22 mirtazapine 15 mg tablet 15 mg PO QHS 04/14/22 multivitamin 1 tab PO DAILY 04/14/22 oxycodone 40 mg tablet,extended release,12 hr 40 mg PO Q8H PRN Pain 04/14/22 tizanidine 4 mg tablet 4 mg PO TID 04/14/22 acetaminophen 325 mg capsule (Tylenol) 650 mg PO Q6H PRN Breakthrough Pain, Mild 07/27/22 albuterol sulfate 2.5 mg/3 mL (0.083 %) solution for nebulization 2.5 mg inhalation Q4H PRN Cough 07/27/22 atorvastatin 40 mg tablet 40 mg PO QHS 07/27/22 fluticasone propionate 220 mcg/actuation HFA aerosol inhaler 2 puff inhalation BID 07/27/22 lorazepam 0.5 mg tablet 0.5 mg PO TID PRN Anxiety 07/27/22 topiramate 100 mg tablet (Topamax) 100 mg PO QHS 07/27/22 venlafaxine 150 mg capsule,extended release 24 hr (Effexor XR) 150 mg PO DAILY 07/27/22 zolpidem 10 mg tablet (Ambien) 10 mg PO QHS PRN Insomnia 07/27/22 Hospital Course Operations None Procedures - (Abdominal CT) Summary of Care Provided Minutes Spent on Discharge: 42 Hospital Course: Mrs. Phillips is a 47-year-old white female who presented to the emergency department [facility] on 07/28/2022 for a wound check as referred by her primary care physician at [facility]. They were concerned with the appearance of the wound. The patient reported that she had a history of a hernia repair in August 2021 at which time mesh was placed. In January 2022 she had the mesh removed and approximately 12 inches of her colon removed secondary to colonic ischemia. She has had wound issues since the operation with her most recent hospitalization at [facility] in May. All of her surgery was done by Dr. Hong at [facility]. At the time of presentation she reported that she had 2 wounds that had closed but the newest one opened 3 to 4 weeks ago and has progressively gotten worse. She indicated that the 4 days prior to presentation it had turned black along the edges and she had associated nausea, vomiting and fevers. She reported that she contacted her surgeon the day prior to presentation and he explained to her that there was nothing more he could do for her and that she should go to the emergency department for wound care. She reported that the T-max at the alf was 100.3 degrees. Vital signs upon presentation here demonstrated a temperature of 100 degrees, initial blood pressure was 107/76 however during her hospital course in the emergency department her blood pressure declined as low as 88/42 with a MAP less than 65 despite 1 fluid bolus, her respiratory rate was 19 and her oxygen saturation was 99% on room air.? She is mentating appropriately.? Her CBC was unremarkable other than a mild neutrophilia with a 73.1% left shift.? Her BMP showed marked hypokalemia with a potassium of 2.2 and elevated glucose at 240, an elevated lactate at 2.1 and normal LFTs and renal function.? Her urine was suggestive of infection having nitrate and leuk esterase with greater than 100 white cells and 3+ bacteriuria had a CT of her abdomen and pelvis was obtained and showed a midline anterior abdominal wall fluid collection with air that measured 4.5 x 2.5 x 2.6 cm that was concerning for a subcutaneous postoperative abscess.?Initially the emergency department tried to transfer the patient to [facility] since this is where she had all care but they declined the phone call indicating they had no room for any transfers.? She was started on antibiotics in the emergency department.? I requested blood cultures and urine culture be obtained.? General surgery was contacted and indicated they would see the patient in consult. She is admitted to the intensive care unit for sepsis as she had a lactate and her blood pressure was low. She did respond to fluid boluses with 4.5 L. Her potassium and magnesium levels were found to be low and these were replaced. She was maintained on vancomycin, Zosyn, and clindamycin was added on the a.m. of 07/28/2022 as the wound appeared to be extending. I did extensive discussion with Dr. Lantigua from general surgery and she felt the patient needed urgently transferred and that was not safe to proceed with any type of surgical intervention here at this institution. We were able to get a bed for her at [facility] for urgent transfer and surgery. All cultures remained pending at the time of discharge. Discharge diagnoses: Sepsis secondary to abdominal abscess Suspected urinary tract infection Lactic acidosis Severe hypokalemia Hypomagnesemia History of bowel resection History of abdominal hernia status postrepair with mesh Colonic dumping syndrome DM-2 Hypothyroidism Fibromyalgia Hyperlipidemia Depression Anxiety Insomnia Morbid obesity Physical Exam Const alert and oriented x3 Constitutional Narrative: Morbidly obese, white female, lying in bed, face was quite flushed, nursing at bedside performing wound care, patient appears ill General Appearance: cooperative and well developed Orientation / Consciousness: awake, oriented to person, oriented to place and oriented to time Exam Limitations: no limitations Nutritional Appearance: morbidly obese HEENT normocephalic, head/scalp atraumatic, hearing grossly normal bilaterally and moist oral mucous membranes HEENT Narrative: Edentulous, Mallampati 2, no thrush Eyes PERRL, EOMs intact bilaterally and conjunctivae normal Eyes Narrative: No scleral icterus Neck no lymphadenopathy, supple, no JVD and no carotid bruits Neck Narrative: Trachea midline, neck is short and thick, no thyroid enlargement Resp normal respiratory effort, no retractions, no use of accessory muscles and clear to auscultation bilaterally Resp Narrative: Diffusely diminished but clear suspect this is related to body habitus Auscultation: Negative for crackles, rhonchi or wheezes Cardio regular rate, regular rhythm, S1 normal heart sound, S2 normal heart sound, no murmurs, no rub, no gallops and no clicks GI GI Narrative: Induration and tenderness with palpation surrounding the wound, wound size is approximately size of a softball with eschar peripherally area of wound and erythema has extended,abdomen is protuberant with large pannus but nondistended and soft with normal bowel sounds Extremity no clubbing, cyanosis or edema Extremity Narrative: 2+ pedal pulses, decreased muscle mass Skin skin turgor normal, no jaundice, no petechiae and no mottling Skin Narrative: Ecchymosis on right side, wound on abdomen as noted above, face remains flushed , Neuro oriented x3, CN's II-XII intact bilaterally, moves all extremities and no focal motor deficits Neuro Narrative: Generalized weakness-good exam is difficult secondary to patient body habitus and positioning in bed Speech: speech normal Psych Mood & Affect: anxious Weight / BMI Weight Weight: 133.9 kg Body Mass Index (BMI) 41.4 ABG / Lab / Microbiology Data Result Diagrams: 07/27/22 15:00 07/27/22 15:00 Laboratory: Laboratory Results - last 24 hr 07/27/22 15:00: WBC 11.0, RBC 4.08 L, Hgb 12.9, Hct 38.1, MCV 93.4, MCH 31.6, MCHC 33.9, RDW Std Deviation 49.5 H, RDW Coeff of Yajaira 14.3, Plt Count 353, MPV 10.1, Immature Gran % (Auto) 0.600, Neut % (Auto) 73.1 H, Lymph % (Auto) 20.1, [place] % (Auto) 4.6, Eos % (Auto) 1.3, Baso % (Auto) 0.3, Absolute Neuts (auto) 8.0 H, Absolute Lymphs (auto) 2.21, Nucleated RBC % 0 07/27/22 15:00: Sodium 138, Potassium 2.2 L*, Chloride 97 L, Carbon Dioxide 32.0, Anion Gap 9, BUN 7, Creatinine 0.75, Estim Creat Clear Calc 98.12, Est GFR (MDRD) Af Amer 106, Est GFR (MDRD) Non-Af 88, BUN/Creatinine Ratio 9.4 L, Glucose 240 H, Calcium 7.6 L, Total Bilirubin 0.50, AST 14 L, ALT 14, Alkaline Phosphatase 107, Total Protein 7.0, Albumin 1.7 L, Globulin 5.3 H, Albumin/Globulin Ratio 0.3 L 07/27/22 15:00: Lactic Acid 2.1 H* 07/27/22 15:00: Magnesium 1.5 L 07/27/22 15:25: Urine Color Yellow, Urine Clarity Sl. Cloudy, Urine pH 7.0, Ur Specific [place] 1.010, Urine Protein 30 H, Urine Glucose (UA) Normal, Urine Ketones Negative, Urine Occult Blood 25 H, Urine Nitrite Positive H, Urine Bilirubin Negative, Urine Urobilinogen Normal, Ur Leukocyte Esterase 500 H, Urine RBC 0 SEEN, Urine WBC >100 SEEN, Ur Squamous Epith Cells 0 SEEN, Urine Bacteria 3+, Urine Mucus 0 SEEN 07/27/22 19:00: MRSA (PCR) Negative 07/27/22 22:22: POC Glucose 164 H 07/28/22 06:39: POC Glucose 179 H Microbiology: Microbiology 07/28/22 11:00 Nasal Secretion SARS-CoV-2 Antigen (Rapid) - Final 07/27/22 15:00 Wound - Abdominal Gram Stain - Final Radiography Diagnostic Testing: Radiology Impression Abdomen/Pelvis CT 07/27/22 14:09 IMPRESSION: (NOT LISTED IN ORDER OF SIGNIFICANCE) Partial collapse of the inferior vena cava suggesting dehydration. Midline anterior abdominal wall fluid collection with air measuring 45 x 25 x 26 mm. This is concerning for a subcutaneous post operative abscess. Other findings as above. Electronically Signed: Jesu Mccallum MD at 16:17 EST Reading Location ID and State: [facility] / [place] , Service support , Meaningful Use Info Meaningful Use Diagnoses (Choose all that apply): None applicable Discharge Plan Admission Admit Date/Time: 07/27/22 18:19 Primary Reason for Your Visit: Abdominal wound/abscess Attending Provider: Bironna Garcia Primary Care Provider: Yuly Ramirez NP Consulting Providers: Yumi Lantigua ; Fransico Key ; John Hodges ; Jose Bower ; Han Hernandez ; Lavonne Blue [facility] Discharge Orders/Prescriptions Prescriptions: No Action multivitamin Tablet 1 tab PO DAILY amitriptyline 75 mg Tablet 75 mg PO QHS tizanidine 4 mg Tablet 4 mg PO TID levothyroxine 300 mcg Tablet 300 mcg PO DAILY loperamide 2 mg Tablet 2 mg PO Q2H PRN (Reason: Diarrhea) Rx Instructions: administer after each loose stool until symptoms controlled; do not exceed 8 mg per 24 hrs oxycodone 40 mg Tablet Extended Release 12 Hr 40 mg PO Q8H PRN (Reason: Pain) famotidine 20 mg Tablet 20 mg PO QHS aluminum-magnesium hydroxide 225-200 mg/5 mL Suspension 30 ml PO Q4H PRN (Reason: Indigestion) mirtazapine 15 mg Tablet 15 mg PO QHS hydromorphone 4 mg Tablet 4 mg PO Q4H PRN (Reason: Pain) bupropion HCl 150 mg Tablet Extended Release 24 Hr 150 mg PO DAILY gabapentin 100 mg Tablet 200 mg PO TID insulin glargine [Lantus Solostar U-100 Insulin] 100 unit/mL (3 mL) Insulin Pen 14 unit SUBCUT QHS magnesium oxide 400 mg magnesium Capsule 400 mg PO TID atorvastatin 40 mg Tablet 40 mg PO QHS albuterol sulfate 2.5 mg /3 mL (0.083 %) Solution For Nebulization 2.5 mg INHALATION Q4H PRN (Reason: Cough) venlafaxine [Effexor XR] 150 mg Capsule,Extended Release 24hr 150 mg PO DAILY fluticasone propionate [Flovent] 220 mcg/actuation Hfa Aerosol Inhaler 2 puff INHALATION BID acetaminophen [Tylenol] 325 mg Capsule 650 mg PO Q6H PRN (Reason: Breakthrough Pain, Mild) lorazepam 0.5 mg Tablet 0.5 mg PO TID PRN (Reason: Anxiety) zolpidem [Ambien] 10 mg Tablet 10 mg PO QHS PRN (Reason: Insomnia) topiramate [Topamax] 100 mg Tablet 100 mg PO QHS Referrals / Follow Up: Yuly Ramirez [facility], [facility] [Primary Care Provider] - Disposition Disposition (needs filled in before D/C Order can be placed): Acute Care Hospital Charges/Coding Visit Charges Inpatient E&M: 51212 Disch Hosp
[2022-07-28] MEDS: Insulin Lispro 100 UNIT/ML INSULN.PEN SC (12:36)
[2022-07-28 13:00] LABS: Bedside Glucose 168 mg/dL (74-106)
== END 2022-07-28 13:10 | disposition short-term general hospital (02) | DRG 720 ==
LOC: ED 17:42 → ICU 18:37
PROVIDERS: Internal Medicine Critical Care Medicine; Admitting Provider Internal Medicine; Emergency Provider Emergency Medicine; PCP Registered Nurse; Visit Provider Internal Medicine
DX: A41.9 Sepsis, unspecified organism (principal); K91.2 Postsurgical malabsorption, not elsewhere classified; E87.20 Acidosis, unspecified; L02.211 Cutaneous abscess of abdominal wall; E66.01 Morbid (severe) obesity due to excess calories; E11.65 Type 2 diabetes mellitus with hyperglycemia; Z68.41 Body mass index [BMI] 40.0-44.9, adult; F41.9 Anxiety disorder, unspecified; E78.5 Hyperlipidemia, unspecified; I10 Essential (primary) hypertension; E89.0 Postprocedural hypothyroidism; E87.6 Hypokalemia; M79.7 Fibromyalgia; S31.109A Unspecified open wound of abdominal wall, unspecified quadrant without penetration into peritoneal cavity, initial encounter; N39.0 Urinary tract infection, site not specified; G47.00 Insomnia, unspecified; F32.A Depression, unspecified; Z79.890 Hormone replacement therapy; Z87.891 Personal history of nicotine dependence
CPT/HCPCS: 74177; 80053; 81001; 82962; 83605; 83735; 85025; 87040; 87070; 87075; 87077; 87086; 87088; 87184; 87186; 87205; 87426; 87641; 97802; 99285; J7030; J7040; J7050; Q9967; A4216; J2405

== ENCOUNTER → 2022-09-19 | Outpatient (REF) | payer MEDICAID, SELFPAY ==
[2022-09-19 09:03] LABS: Hematocrit 29.1 % (37-47); Mean Corp Hgb Conc 30.9 g/dL (32-36); Mean Corpuscular Hgb 30.8 pg (27.0-32.0); Mean Corpuscular Volume 99.7 fL (81-99); Mean Platelet Vol. 9.5 fl (6.2-12.0); Platelet Count 312 K/mm3 (150-450); RBC Distribution Width CV 17.1 % (11.6-14.6); Red Blood Count 2.92 M/mm3 (4.2-5.4); White Blood Count 6.4 K/mm3 (4.4-11.0)
[2022-09-19 09:40] LABS: ALB/GLOB Ratio 0.4 RATIO (0.9-2.4); AST(SGOT) 21 U/L (15-37); Alanine Aminotransfer ALT/SGPT 8 U/L (13-56); Albumin, Serum 1.6 g/dL (3.2-5.0); Alkaline Phosphatase 42 U/L (45-117); Anion Gap 8 (5-15); BUN 8 mg/dL (7-18); BUN/Creat Ratio 17.2 RATIO (10-20); Calcium,Total 7.8 mg/dL (8.5-10.1); Chloride 111 mmol/L (98-107); Cholesterol 94 mg/dL (200); Creatinine, Serum 0.47 mg/dL (0.55-1.02); EST Glomerular Filtration Rate 151 mL/min (>60); Est Glom Filt Rate - Afr Amer 183 mL/min (>60); Globulin 3.6 g/dL (2.2-4.2); Glucose 89 mg/dL (74-106); High Density Lipoprotein 35 mg/dL; Magnesium 1.4 mg/dL (1.6-2.6); Potassium 3.1 mmol/L (3.5-5.1); Protein, Total 5.2 g/dL (6.4-8.2); Sodium Level 145 mmol/L (136-145); T4 Total, Thyroxin 8.9 ug/dL (4.8-13.9); Triglycerides 143 mg/dL; Very Low Density Lipoprotein 29 mg/dL (5-40)
== END | disposition home or self-care (01) ==
LOC: OLS.SW 06:00
PROVIDERS: PCP Registered Nurse; Visit Provider Family Medicine
DX: E78.5 Hyperlipidemia, unspecified (principal); E11.9 Type 2 diabetes mellitus without complications
CPT/HCPCS: 80053; 80061; 83036; 83735; 84436; 84443; 85027

== ENCOUNTER → 2022-09-23 | Outpatient (REF) | payer MEDICAID, SELFPAY ==
[2022-09-23 08:38] LABS: Absolute Lymphocyte Count 2.64 X10^3/uL (0.83-4.51); Absolute Neutrophil Count 3.4 X10^3/uL (2.0-7.7); Basophil# 0.05 X10^3/uL; Basophil% 0.7 % (0-1); Eosinophil# 0.43 X10^3/uL; Eosinophils% 6.2 % (0-5); Hematocrit 31.4 % (37-47); Hemoglobin 10.1 g/dL (12.0-15.0); Lymphocyte # 2.64 X10^3/ul (0.83-4.51); Lymphocyte % 38.1 % (19-41); Mean Corp Hgb Conc 32.2 g/dL (32-36); Mean Corpuscular Hgb 31.4 pg (27.0-32.0); Mean Corpuscular Volume 97.5 fL (81-99); Mean Platelet Vol. 9.4 fl (6.2-12.0); Monocyte% 5.8 % (0-10); NRBC Flagged by Analyzer 0 % (0-5); Neutrophil # 3.39 X10^3/uL (2.7-7.7); Neutrophil % 48.9 % (47-70); Platelet Count 326 K/mm3 (150-450); RBC Distribution Width CV 16.7 % (11.6-14.6); RBC Distribution Width SD 59.7 fl (35.1-43.9); Red Blood Count 3.22 M/mm3 (4.2-5.4); White Blood Count 6.9 K/mm3 (4.4-11.0)
[2022-09-23 09:11] LABS: Anion Gap 8 (5-15); BUN 10 mg/dL (7-18); BUN/Creat Ratio 20.5 RATIO (10-20); Calcium,Total 8.7 mg/dL (8.5-10.1); Chloride 107 mmol/L (98-107); Creatinine, Serum 0.49 mg/dL (0.55-1.02); EST Glomerular Filtration Rate 143 mL/min (>60); Est Glom Filt Rate - Afr Amer 173 mL/min (>60); Glucose 104 mg/dL (74-106); Sodium Level 143 mmol/L (136-145)
== END | disposition home or self-care (01) ==
LOC: OLS.SW 04:00
PROVIDERS: PCP Registered Nurse; Referring Provider Family Medicine; Visit Provider Family Medicine
DX: E11.9 Type 2 diabetes mellitus without complications (principal)
CPT/HCPCS: 36415; 80048; 85025

== ENCOUNTER → 2022-09-30 | Outpatient (REF) | payer MEDICAID, SELFPAY ==
[2022-09-30 08:56] LABS: Absolute Lymphocyte Count 2.95 X10^3/uL (0.83-4.51); Absolute Neutrophil Count 2.8 X10^3/uL (2.0-7.7); Basophil# 0.06 X10^3/uL; Basophil% 0.9 % (0-1); Eosinophil# 0.37 X10^3/uL; Eosinophils% 5.6 % (0-5); Hematocrit 33.7 % (37-47); Hemoglobin 10.6 g/dL (12.0-15.0); Lymphocyte # 2.95 X10^3/ul (0.83-4.51); Lymphocyte % 44.8 % (19-41); Mean Corp Hgb Conc 31.5 g/dL (32-36); Mean Corpuscular Hgb 31.3 pg (27.0-32.0); Mean Corpuscular Volume 99.4 fL (81-99); Mean Platelet Vol. 9.3 fl (6.2-12.0); Monocyte# 0.36 X10^3/uL; Monocyte% 5.5 % (0-10); NRBC Flagged by Analyzer 0 % (0-5); Neutrophil # 2.84 X10^3/uL (2.7-7.7); Platelet Count 359 K/mm3 (150-450); Red Blood Count 3.39 M/mm3 (4.2-5.4); White Blood Count 6.6 K/mm3 (4.4-11.0)
[2022-09-30 09:03] LABS: Anion Gap 8 (5-15); BUN 15 mg/dL (7-18); BUN/Creat Ratio 22.4 RATIO (10-20); Calcium,Total 8.7 mg/dL (8.5-10.1); Chloride 104 mmol/L (98-107); Creatinine, Serum 0.67 mg/dL (0.55-1.02); EST Glomerular Filtration Rate 99 mL/min (>60); Est Glom Filt Rate - Afr Amer 120 mL/min (>60); Glucose 131 mg/dL (74-106); Potassium 3.7 mmol/L (3.5-5.1); Sodium Level 138 mmol/L (136-145)
== END | disposition home or self-care (01) ==
LOC: OLS.SW 04:00
PROVIDERS: PCP Registered Nurse; Referring Provider Family Medicine; Visit Provider Family Medicine
DX: Z79.899 Other long term (current) drug therapy (principal)
CPT/HCPCS: 80048; 85025

== ENCOUNTER → 2022-10-07 | Outpatient (REF) | payer MEDICAID, SELFPAY ==
[2022-10-07 08:17] LABS: Absolute Lymphocyte Count 3.07 X10^3/uL (0.83-4.51); Absolute Neutrophil Count 3.2 X10^3/uL (2.0-7.7); Basophil# 0.06 X10^3/uL; Basophil% 0.8 % (0-1); Eosinophil# 0.33 X10^3/uL; Eosinophils% 4.6 % (0-5); Hematocrit 34.5 % (37-47); Hemoglobin 11.2 g/dL (12.0-15.0); Lymphocyte # 3.07 X10^3/ul (0.83-4.51); Lymphocyte % 43.2 % (19-41); Mean Corp Hgb Conc 32.5 g/dL (32-36); Mean Corpuscular Hgb 31.9 pg (27.0-32.0); Mean Corpuscular Volume 98.3 fL (81-99); Mean Platelet Vol. 9.3 fl (6.2-12.0); Monocyte# 0.43 X10^3/uL; Monocyte% 6.1 % (0-10); NRBC Flagged by Analyzer 0 % (0-5); Neutrophil # 3.19 X10^3/uL (2.7-7.7); Platelet Count 317 K/mm3 (150-450); RBC Distribution Width CV 15.7 % (11.6-14.6); RBC Distribution Width SD 56.4 fl (35.1-43.9); Red Blood Count 3.51 M/mm3 (4.2-5.4); White Blood Count 7.1 K/mm3 (4.4-11.0)
[2022-10-07 09:12] LABS: Anion Gap 8 (5-15); BUN 19 mg/dL (7-18); BUN/Creat Ratio 27.8 RATIO (10-20); Chloride 103 mmol/L (98-107); Creatinine, Serum 0.68 mg/dL (0.55-1.02); EST Glomerular Filtration Rate 97 mL/min (>60); Est Glom Filt Rate - Afr Amer 117 mL/min (>60); Glucose 111 mg/dL (74-106); Potassium 4.1 mmol/L (3.5-5.1); Sodium Level 138 mmol/L (136-145)
== END | disposition home or self-care (01) ==
LOC: OLS.SW 06:45
PROVIDERS: PCP Registered Nurse; Referring Provider Family Medicine; Visit Provider Family Medicine
DX: E11.9 Type 2 diabetes mellitus without complications (principal); I10 Essential (primary) hypertension
CPT/HCPCS: 80048; 85025

== ENCOUNTER → 2022-10-14 | Outpatient (REF) | payer MEDICAID, SELFPAY ==
[2022-10-14 07:28] LABS: Absolute Lymphocyte Count 2.92 X10^3/uL (0.83-4.51); Absolute Neutrophil Count 1.8 X10^3/uL (2.0-7.7); Basophil# 0.05 X10^3/uL; Basophil% 0.9 % (0-1); Eosinophil# 0.19 X10^3/uL; Eosinophils% 3.5 % (0-5); Hematocrit 34.7 % (37-47); Hemoglobin 11.3 g/dL (12.0-15.0); Lymphocyte # 2.92 X10^3/ul (0.83-4.51); Lymphocyte % 53.4 % (19-41); Mean Corp Hgb Conc 32.6 g/dL (32-36); Mean Corpuscular Hgb 31.7 pg (27.0-32.0); Mean Corpuscular Volume 97.2 fL (81-99); Mean Platelet Vol. 9.5 fl (6.2-12.0); Monocyte# 0.49 X10^3/uL; NRBC Flagged by Analyzer 0 % (0-5); Neutrophil % 32.8 % (47-70); Platelet Count 281 K/mm3 (150-450); RBC Distribution Width CV 15.1 % (11.6-14.6); RBC Distribution Width SD 54.8 fl (35.1-43.9); Red Blood Count 3.57 M/mm3 (4.2-5.4); White Blood Count 5.5 K/mm3 (4.4-11.0)
[2022-10-14 07:52] LABS: Anion Gap 7 (5-15); BUN 15 mg/dL (7-18); Chloride 104 mmol/L (98-107); Creatinine, Serum 0.68 mg/dL (0.55-1.02); EST Glomerular Filtration Rate 97 mL/min (>60); Est Glom Filt Rate - Afr Amer 118 mL/min (>60); Glucose 148 mg/dL (74-106); Sodium Level 139 mmol/L (136-145)
== END | disposition home or self-care (01) ==
LOC: OLS.SW 05:00
PROVIDERS: PCP Registered Nurse; Referring Provider Family Medicine; Visit Provider Family Medicine
DX: D64.9 Anemia, unspecified (principal); E11.9 Type 2 diabetes mellitus without complications
CPT/HCPCS: 80048; 85025

== ENCOUNTER → 2022-10-22 | Outpatient (REF) | payer MEDICAID, SELFPAY ==
[2022-10-22 09:56] LABS: Absolute Lymphocyte Count 2.78 X10^3/uL (0.83-4.51); Absolute Neutrophil Count 4.5 X10^3/uL (2.0-7.7); Basophil# 0.06 X10^3/uL; Basophil% 0.7 % (0-1); Eosinophil# 0.22 X10^3/uL; Eosinophils% 2.7 % (0-5); Hematocrit 34.3 % (37-47); Hemoglobin 10.9 g/dL (12.0-15.0); Lymphocyte # 2.78 X10^3/ul (0.83-4.51); Lymphocyte % 34.7 % (19-41); Mean Corp Hgb Conc 31.8 g/dL (32-36); Mean Corpuscular Hgb 31.3 pg (27.0-32.0); Mean Corpuscular Volume 98.6 fL (81-99); Mean Platelet Vol. 9.3 fl (6.2-12.0); NRBC Flagged by Analyzer 0 % (0-5); Neutrophil # 4.52 X10^3/uL (2.7-7.7); Neutrophil % 56.5 % (47-70); Platelet Count 334 K/mm3 (150-450); RBC Distribution Width CV 14.6 % (11.6-14.6); RBC Distribution Width SD 53.2 fl (35.1-43.9); Red Blood Count 3.48 M/mm3 (4.2-5.4)
[2022-10-22 10:07] LABS: Anion Gap 7 (5-15); BUN 17 mg/dL (7-18); Calcium,Total 8.7 mg/dL (8.5-10.1); Chloride 106 mmol/L (98-107); Creatinine, Serum 0.74 mg/dL (0.55-1.02); EST Glomerular Filtration Rate 89 mL/min (>60); Est Glom Filt Rate - Afr Amer 107 mL/min (>60); Glucose 179 mg/dL (74-106); Magnesium 1.6 mg/dL (1.6-2.6); Potassium 3.8 mmol/L (3.5-5.1); Sodium Level 139 mmol/L (136-145)
== END | disposition home or self-care (01) ==
LOC: OLS.SW 08:25
PROVIDERS: PCP Registered Nurse; Visit Provider Family Medicine
DX: I10 Essential (primary) hypertension (principal)
CPT/HCPCS: 80048; 83735; 85025

== ENCOUNTER → 2023-01-08 | Outpatient (CLI) | payer MEDICAID, SELFPAY | END | disposition home or self-care (01) | LOC: RAD.FUTURE 14:46 | PROVIDERS: PCP Registered Nurse; Referring Provider Podiatrist; Visit Provider Podiatrist | DX: M25.552 Pain in left hip (principal) ==

== ENCOUNTER 2024-07-19 11:53 | Emergency (ER) | payer MEDICAID, SELFPAY ==
[2024-07-19 11:54] VITALS: BP 164/83; PULSE 90; RESP 18; TEMP 36.9; O2SAT 100
[2024-07-19 11:56] VITALS: BMI 41.1
--- NOTE | 2024-07-19 12:44 | RAD_ITS ---
STUDY: X-RAY CHEST REASON FOR EXAM: Female, 49 years old. fever TECHNIQUE: Single AP portable view of the chest. COMPARISON: 03/16/2021 FINDINGS: The lungs are clear and expanded. There is no demonstrated pleural abnormality. Normal size heart. Normal mediastinum and galina. Normal visualized pulmonary arteries. Normal visualized aortic arch and descending thoracic aorta. Normal visualized thoracic spine. Normal visualized ribs, clavicles, and shoulders. There is no demonstrated abnormality of the visualized soft tissue structures of the upper abdomen. RAD/Chest 1 View (Portable) IMPRESSION: No acute pulmonary process Electronically Signed: Kan Wyman MD at 13:37 EST ,
--- NOTE | 2024-07-19 12:54 | EX.ED.DYSGE1 ---
HPI History of Present Illness Chief Complaint: Nausea/Vomiting Informant: patient and spouse/S.O. Narrative Narrative: 49-year-old female presenting to the emergency room with vomiting. Patient states over the past 2 days she has had persistent vomiting. She notes chronic diarrhea from dumping syndrome but no change in stool. She notes a fever last night of 102. She notes redness on her arms upper chest and face which she cannot explain. She denies any new soaps lotions medications etc. Patient notes minimal cough. No sore throat. Patient notes a generalized upper abdominal discomfort. [facility] Medical History Open abdominal wall wound Lupus Fibromyalgia Thyroid disease GERD (gastroesophageal reflux disease) Fatty liver HTN (hypertension) Diabetes type 2, uncontrolled Carpal tunnel syndrome Anxiety and depression Seasonal allergies Home Medications ?Medication ?Instructions ?Recorded ?Last Taken ?Type aluminum-magnesium hydroxide 225 30 ml PO Q4H PRN Indigestion 04/14/22 Unknown History mg-200 mg/5 mL oral suspension amitriptyline 75 mg tablet 75 mg PO QHS 04/14/22 Unknown History bupropion HCl 150 mg 24 hr tablet, 150 mg PO DAILY 04/14/22 Unknown History extended release famotidine 20 mg tablet 20 mg PO QHS 04/14/22 Unknown History gabapentin 100 mg tablet 200 mg PO TID 04/14/22 Unknown History hydromorphone 4 mg tablet 4 mg PO Q4H PRN Pain 04/14/22 Unknown History insulin glargine 100 unit/mL (3 14 unit subcut QHS 04/14/22 Unknown History mL) subcutaneous pen (Lantus Solostar U-100 Insulin) levothyroxine 300 mcg tablet 300 mcg PO DAILY 04/14/22 Unknown History loperamide 2 mg tablet 2 mg PO Q2H PRN Diarrhea 04/14/22 Unknown History magnesium oxide 400 mg PO TID 04/14/22 Unknown History mirtazapine 15 mg tablet 15 mg PO QHS 04/14/22 Unknown History multivitamin 1 tab PO DAILY 04/14/22 Unknown History oxycodone 40 mg tablet,extended 40 mg PO Q8H PRN Pain 04/14/22 Unknown History release,12 hr tizanidine 4 mg tablet 4 mg PO TID 04/14/22 Unknown History acetaminophen 325 mg capsule 650 mg PO Q6H PRN Breakthrough 07/27/22 Unknown History (Tylenol) Pain, Mild albuterol sulfate 2.5 mg/3 mL 2.5 mg inhalation Q4H PRN Cough 07/27/22 Unknown History (0.083 %) solution for nebulization atorvastatin 40 mg tablet 40 mg PO QHS 07/27/22 Unknown History fluticasone propionate 220 2 puff inhalation BID 07/27/22 Unknown History mcg/actuation HFA aerosol inhaler lorazepam 0.5 mg tablet 0.5 mg PO TID PRN Anxiety 07/27/22 Unknown History topiramate 100 mg tablet (Topamax) 100 mg PO QHS 07/27/22 Unknown History venlafaxine 150 mg 150 mg PO DAILY 07/27/22 Unknown History capsule,extended release 24 hr (Effexor XR) zolpidem 10 mg tablet (Ambien) 10 mg PO QHS PRN Insomnia 07/27/22 Unknown History dicyclomine 20 mg tablet 20 mg PO TID PRN abdominal pain 07/19/24 Unknown Rx #20 tabs nitrofurantoin 100 mg PO Q12 #14 CAPSULES 07/19/24 Unknown Rx monohydrate/macrocrystals 100 mg capsule ondansetron 4 mg disintegrating 4 mg PO Q6H PRN PRN Nausea #15 tabs 07/19/24 Unknown Rx tablet Allergy/AdvReac Type Severity Reaction Status Date / Time cephalexin Allergy Other Verified 07/19/24 11:57 hydroxyzine (From Atarax) Allergy Hives Verified 07/19/24 11:57 oxymetazoline Allergy NEEDS Verified 07/19/24 11:57 FOLLOW-UP Sulfa (Sulfonamide Allergy Hives Verified 07/19/24 11:57 Antibiotics) sulfadiazine Allergy NEEDS Verified 07/19/24 11:57 FOLLOW-UP duloxetine (From Cymbalta) AdvReac Other Verified 07/19/24 11:57 raspberry AdvReac Other Verified 07/19/24 11:57 Family History Mother Arthritis Breast cancer Heart disease Father Heart disease Alcohol abuse Blood clot in vein Sister Anxiety Depression Brother Anxiety Surgical History H/O thyroidectomy S/P bronchoscopy History of incision and drainage l toe surgery Hx of appendectomy Hx of cholecystectomy S/P RUTH (total abdominal hysterectomy) H/O sinus surgery H/O: H/O hernia repair cervical lymph node excision Social History household members: spouse Smoking Status: Former smoker alcohol intake: current alcohol intake frequency: holidays/special occasions only substance use type: does not use ROS ROS ED ROS Narrative Generalized fatigue Constitutional Constitutional ED: Reports chills and fever(s); Denies weight loss Eyes Eyes: Denies change in vision or diplopia ENT ENT ED: Denies ear pain, rhinorrhea or sore throat Cardiovascular Cardiovascular: Denies chest pain, orthopnea, palpitations or racing heartbeat Respiratory/Chest Respiratory/Chest: Denies cough, dyspnea or orthopnea Gastrointestinal Gastrointestinal: Reports abdominal pain, nausea and vomiting; Denies diarrhea Genitourinary Genitourinary ED: Denies dysuria, hematuria or urinary frequency Musculoskeletal Musculoskeletal: Denies arthralgias or myalgias Integumentary Reports rash; Denies abscess Neurologic Neurologic: Denies headache(s) or weakness Psychiatric Psychiatric: Denies anxiety, depression, suicidal ideation or suicidal thoughts Endocrine Endocrinology: Denies polydipsia, polyphagia or polyuria Allergic/Immunologic Allergic/Immunologic ED: Denies mouth swelling, tongue swelling or urticaria EXAM Physical Exam Const Vital Signs: 07/19/24 11:54 07/19/24 12:13 07/19/24 13:24 Temperature 98.5 F Temperature Source Oral Pulse Rate 90 100 Respiratory Rate 18 18 Respiratory Effort Normal Respiratory Pattern Normal Blood Pressure 164/83 H 113/81 H Blood Pressure Mean 110 91 Pulse Ox 100 99 Oxygen Delivery Method Room Air Room Air 07/19/24 15:00 07/19/24 15:17 Temperature 98.5 F Temperature Source Pulse Rate 96 96 Respiratory Rate 18 18 Respiratory Effort Respiratory Pattern Blood Pressure 140/77 H 140/77 H Blood Pressure Mean 98 98 Pulse Ox 96 96 Oxygen Delivery Method Room Air Positive well nourished, well developed and obese General Appearance ED: well developed and NAD Nutritional Appearance: obese HEENT Reports normocephalic, head/scalp atraumatic and moist mucous membranes Eyes PERRL and EOMs intact bilaterally Neck no lymphadenopathy, supple and no JVD Resp normal respiratory effort and clear to auscultation bilaterally Cardio regular rate, regular rhythm and no murmurs GI normal to inspection, nondistended, normoactive bowel sounds and non-tender GI Narrative: Healed large midline abdominal incision (which the patient states is from November 2023). The abdomen is soft. Body habitus is significant Auscultation: normoactive bowel sounds Palpation: soft and tender epigastric, LUQ, RUQ and periumbilical; Negative for guarding or rebound tenderness present Back/Spine no CVA tenderness and normal ROM Extremity normal to inspection General Extremety ED: Negative for edema General Extremity: Negative for edema Neuro oriented x3 and CN's II-XII intact bilaterally Sensorium / Orientation: alert Motor Exam: strength 5/5 throughout Psych mental status grossly normal Mood & Affect: Negative for depressed or tearful Skin no wounds Skin Narrative: There is some blanching redness on the bilateral upper extremities upper chest face and neck. These do not appear to be hives or petechiae. There are not palpable. MDM MDM MDM Narrative Medical decision making narrative: Differential diagnosis includes but not limited to viral syndrome pancreatitis bowel obstruction dehydration electrolyte abnormalities UTI White count normal at 10.5 hemoglobin level 13.7 platelet count of 301 BMP within normal limits LFTs within normal limits glucose noted to be 158 urinalysis 10-25 white cells 5-10 red cells 1+ bacteria positive leukocyte Estrace negative nitrates. Patient received a dose of Toradol as well as Zofran. She notes she is continue to have pain and we gave her a dose of Bentyl. I do not believe that the patient needs a CT scan. Her abdomen is soft with normal bowel sounds. She is not profoundly dehydrated. I think this is most likely a viral illness given the fever last night and the nondescript rash that she notes. Would recommend Bentyl as needed Zofran as needed oral hydration we can write for some nitrofurantoin for the urine. Recommend PCP follow-up if not improving return if worsening History & Record Review Discussion w/independent historian: Patient Lab Data Attestation: I reviewed the patient's lab results. Labs: Laboratory Results - last 24 hr 07/19/24 07/19/24 13:02 14:16 WBC 10.8 RBC 4.82 Hgb 13.7 Hct 42.3 MCV 87.8 MCH 28.4 MCHC 32.4 RDW Std Deviation 53.8 H RDW Coeff of Yajaira 16.8 H Plt Count 301 MPV 10.3 Immature Gran % (Auto) 0.300 Neut % (Auto) 76.7 H Lymph % (Auto) 19.4 [place] % (Auto) 2.5 Eos % (Auto) 0.6 Baso % (Auto) 0.5 Absolute Neuts (auto) 8.3 H Absolute Lymphs (auto) 2.09 Nucleated RBC % 0 Sodium 137 Potassium 3.7 Chloride 104 Carbon Dioxide 24.0 Anion Gap 9 BUN 11 Creatinine 1.02 Estim Creat Clear Calc 95.83 Est GFR (MDRD) Af Amer 73 Est GFR (MDRD) Non-Af 61 BUN/Creatinine Ratio 10.8 Glucose 158 H Calcium 9.2 Total Bilirubin 0.90 Direct Bilirubin 0.15 AST 19 ALT 16 Alkaline Phosphatase 60 Total Protein 8.0 Albumin 3.6 Globulin 4.4 H Urine Color Yellow Urine Clarity Clear Urine pH 6.5 Ur Specific [place] 1.010 Urine Protein Negative Urine Glucose (UA) 1000 H Urine Ketones Negative Urine Occult Blood 50 H Urine Nitrite Negative Urine Bilirubin Negative Urine Urobilinogen Normal Ur Leukocyte Esterase 500 H Urine RBC 5-10 SEEN Urine WBC 10-25 SEEN Ur Squamous Epith Cells 0-5 SEEN Ur Transition Epith Cell 0-5 SEEN Urine Bacteria 1+ Urine Mucus 0 SEEN Radiography Diagnostic Testing: Clinical Impression(s) from Imaging Studies Chest X-Ray 07/19/24 12:44 IMPRESSION: No acute pulmonary process Electronically Signed: Kan Wyman MD at 13:37 EST Reading Location ID and State: [facility] / [place] , Service support , Discharge Plan Triage Chief Complaint: Nausea/Vomiting Other Complaint: Fever ED Provider: Ken De La Fuente Dx/Rx/DC Orders Clinical Impression: Vomiting, Cystitis, Abdominal pain, Viral exanthem Prescriptions: New dicyclomine 20 mg tablet 20 mg PO TID PRN (Reason: abdominal pain) Qty: 20 0RF ondansetron 4 mg tablet,disintegrating 4 mg PO Q6H PRN PRN (Reason: Nausea) Qty: 15 0RF nitrofurantoin monohyd/m-cryst 100 mg capsule 100 mg PO Q12 Qty: 14 0RF No Action multivitamin Tablet 1 tab PO DAILY amitriptyline 75 mg Tablet 75 mg PO QHS tizanidine 4 mg Tablet 4 mg PO TID levothyroxine 300 mcg Tablet 300 mcg PO DAILY loperamide 2 mg Tablet 2 mg PO Q2H PRN (Reason: Diarrhea) Rx Instructions: administer after each loose stool until symptoms controlled; do not exceed 8 mg per 24 hrs oxycodone 40 mg Tablet Extended Release 12 Hr 40 mg PO Q8H PRN (Reason: Pain) famotidine 20 mg Tablet 20 mg PO QHS aluminum-magnesium hydroxide 225-200 mg/5 mL Suspension 30 ml PO Q4H PRN (Reason: Indigestion) mirtazapine 15 mg Tablet 15 mg PO QHS hydromorphone 4 mg Tablet 4 mg PO Q4H PRN (Reason: Pain) bupropion HCl 150 mg Tablet Extended Release 24 Hr 150 mg PO DAILY gabapentin 100 mg Tablet 200 mg PO TID insulin glargine [Lantus Solostar U-100 Insulin] 100 unit/mL (3 mL) Insulin Pen 14 unit SUBCUT QHS magnesium oxide 400 mg magnesium Capsule 400 mg PO TID atorvastatin 40 mg Tablet 40 mg PO QHS albuterol sulfate 2.5 mg /3 mL (0.083 %) Solution For Nebulization 2.5 mg INHALATION Q4H PRN (Reason: Cough) venlafaxine [Effexor XR] 150 mg Capsule,Extended Release 24hr 150 mg PO DAILY fluticasone propionate [Flovent] 220 mcg/actuation Hfa Aerosol Inhaler 2 puff INHALATION BID acetaminophen [Tylenol] 325 mg Capsule 650 mg PO Q6H PRN (Reason: Breakthrough Pain, Mild) lorazepam 0.5 mg Tablet 0.5 mg PO TID PRN (Reason: Anxiety) zolpidem [Ambien] 10 mg Tablet 10 mg PO QHS PRN (Reason: Insomnia) topiramate [Topamax] 100 mg Tablet 100 mg PO QHS Primary Care Provider: Yuly Ramirez NP Referrals: Yuly Ramirez NP, [facility] [Primary Care Provider] - 3-5 Days Print Language: [place]ize[place] Disposition Disposition: Home, Self Care Discharge Date/Time: 07/19/24 15:31
[2024-07-19 13:11] LABS: Absolute Lymphocyte Count 2.09 X10^3/uL (0.83-4.51); Absolute Neutrophil Count 8.3 X10^3/uL (2.0-7.7); Basophil# 0.05 X10^3/uL; Basophil% 0.5 % (0-1); Eosinophil# 0.06 X10^3/uL; Eosinophils% 0.6 % (0-5); Hematocrit 42.3 % (37-47); Hemoglobin 13.7 g/dL (12.0-15.0); Lymphocyte # 2.09 X10^3/ul (0.83-4.51); Lymphocyte % 19.4 % (19-41); Mean Corp Hgb Conc 32.4 g/dL (32-36); Mean Corpuscular Hgb 28.4 pg (27.0-32.0); Mean Corpuscular Volume 87.8 fL (81-99); Mean Platelet Vol. 10.3 fl (6.2-12.0); Monocyte# 0.27 X10^3/uL; Monocyte% 2.5 % (0-10); NRBC Flagged by Analyzer 0 % (0-5); Neutrophil # 8.26 X10^3/uL (2.7-7.7); Neutrophil % 76.7 % (47-70); Platelet Count 301 K/mm3 (150-450); RBC Distribution Width CV 16.8 % (11.6-14.6); RBC Distribution Width SD 53.8 fl (35.1-43.9); Red Blood Count 4.82 M/mm3 (4.2-5.4); White Blood Count 10.8 K/mm3 (4.4-11.0)
[2024-07-19] MEDS: Ondansetron 4 MG/2 ML Vial IV (13:23)
[2024-07-19] MEDS: 0.9% Normal Saline (1000mL) 1,000 ML 1000 ML IV (13:23)
[2024-07-19 13:24] VITALS: BP 113/81; PULSE 100; RESP 18; O2SAT 99
[2024-07-19 13:31] LABS: AST(SGOT) 19 U/L (15-37); Alanine Aminotransfer ALT/SGPT 16 U/L (13-56); Albumin, Serum 3.6 g/dL (3.2-5.0); Alkaline Phosphatase 60 U/L (45-117); Anion Gap 9 (5-15); BUN 11 mg/dL (7-18); BUN/Creat Ratio 10.8 RATIO (10-20); Bilirubin, Direct 0.15 mg/dL (0.00-0.30); Calcium,Total 9.2 mg/dL (8.5-10.1); Chloride 104 mmol/L (98-107); Creatinine, Serum 1.02 mg/dL (0.55-1.02); EST Glomerular Filtration Rate 61 mL/min (>60); Est Glom Filt Rate - Afr Amer 73 mL/min (>60); Estimated Creatinine Clearance 95.83 ml/min; Globulin 4.4 g/dL (2.2-4.2); Glucose 158 mg/dL (74-106); Potassium 3.7 mmol/L (3.5-5.1); Sodium Level 137 mmol/L (136-145)
[2024-07-19] MEDS: Ketorolac 30 MG/ML Syringe IV (14:12)
[2024-07-19 14:28] LABS: Mucous, Urine 0 SEEN /hpf (<or=2+)
[2024-07-19 14:35] LABS: Color, Urine Yellow (Yellow); Glucose, Dipstick 1000 mg/dl (Normal); Ketone-Dipstick Negative (Negative); Leukocyte Esterase-Dipstick 500 /ul (Negative); Nitrite-Dipstick Negative (Negative); Occult Blood-Urine 50 /ul (Negative); Protein-Dipstick Negative (Negative); Urine Bilirubin Dipstick Negative (Negative); Urine Clarity Clear (Clear); Urine Urobilinogen Normal (Normal); Urine pH 6.5 (5.0 - 8.0)
[2024-07-19 14:41] LABS: Bacteria 1+ /hpf (None Seen); Red Blood Cells-Urine 5-10 SEEN /hpf (0-5); Squamous Epithelial Cells - UA 0-5 SEEN /hpf (5-10); Transitional Epithelial - Ur 0-5 SEEN /hpf (0-5); White Blood Cells 10-25 SEEN /hpf (0-5)
[2024-07-19 15:00] VITALS: BP 140/77; PULSE 96; RESP 18; O2SAT 96
[2024-07-19 15:17] VITALS: BP 140/77; PULSE 96; RESP 18; TEMP 36.9; O2SAT 96
[2024-07-19] MEDS: Dicyclomine 20 MG/2 ML Vial IM (15:20)
== END 2024-07-19 15:31 | disposition home or self-care (01) ==
PROVIDERS: Emergency Provider Emergency Medicine; PCP Registered Nurse; Visit Provider Emergency Medicine
DX: R11.10 Vomiting, unspecified (principal); E11.9 Type 2 diabetes mellitus without complications; Z79.4 Long term (current) use of insulin; N30.90 Cystitis, unspecified without hematuria; I10 Essential (primary) hypertension; Z87.891 Personal history of nicotine dependence; B09 Unspecified viral infection characterized by skin and mucous membrane lesions; Z90.710 Acquired absence of both cervix and uterus; F41.8 Other specified anxiety disorders; Z79.899 Other long term (current) drug therapy; K21.9 Gastro-esophageal reflux disease without esophagitis; Z90.49 Acquired absence of other specified parts of digestive tract; R10.9 Unspecified abdominal pain
CPT/HCPCS: 71045; 80048; 80076; 81001; 85025; 87631; 96361; 96372; 96374; 96375; 99284; A4216; J2405